=== PATIENT | female | born 1960 | race Caucasian/White ===

== ENCOUNTER 2021-08-17 09:48 | Inpatient (IN) | payer OTHER ==
[2021-08-17 14:15] LABS: Anisocytosis Slight; Basophils % (A) 0 %; Eosinophils # (A) 0.2 k/uL (0-0.7); Eosinophils % (A) 1 %; HCT 27.2 % (34.0-46.0); HGB 7.9 gm/dL (11.4-16.0); Hypochromasia Marked; Lymphocytes % (A) 12 %; MCH 21.1 pg (25.0-35.0); MCHC 28.9 g/dL (31.0-37.0); MCV 72.9 fL (80.0-100.0); Microcytosis Moderate; Monocytes # (A) 0.7 k/uL (0-1.0); Monocytes % (A) 4 %; Neutrophils # (A) 14.2 k/uL (1.3-7.7); Neutrophils % (A) 82 %; Platelet Count 756 k/uL (150-450); Poikilocytosis Moderate; RBC 3.74 m/uL (3.80-5.40); WBC 17.3 k/uL (3.8-10.6)
[2021-08-17 14:28] LABS: ALT 26 U/L (4-34); AST 28 U/L (14-36); African American GFR (CKD) >90 (>60 ml/min/1.73 sqM); Albumin 2.7 g/dL (3.5-5.0); Albumin/Globulin Ratio 0.9; Alkaline Phosphatase 361 U/L (38-126); Anion Gap 9 mmol/L; Blood Urea Nitrogen 7 mg/dL (7-17); Calcium 8.6 mg/dL (8.4-10.2); Carbon Dioxide 22 mmol/L (22-30); Chloride 103 mmol/L (98-107); Globulin 3.1 g/dL; Glucose 137 mg/dL (74-99); Non-African American GFR(CKD) >90 (>60 ml/min/1.73 sqM); Potassium 3.6 mmol/L (3.5-5.1); Sodium 134 mmol/L (137-145); Total Bilirubin 0.2 mg/dL (0.2-1.3); Total Protein 5.8 g/dL (6.3-8.2)
--- NOTE | 2021-08-17 18:30 | P.HPIM ---
History of Present Illness H&P Date: 08/17/21 The patient is a 62-year-old female with no known PMH, who doesn't follow with a PCP who had presented to [facility] on 08/15 with complaints of lethargy and weakness. The patient had reported that she had gone to bed as per usual on 08/14 and when her tried to wake her up to have her use the restroom, she was unable to get out of bed she felt really fatigued. The patient had undergone an extensive evaluation at [facility] with UA consistent with UTI, leukocytosis with WC count 19.9, hemoglobin 7.9 (no baseline available for comparison), MCV 67, troponin I 0.05, and sodium 128. CT head and CT angiogram of head and neck both unremarkable with chest x-ray also showing no acute process. EKG had revealed sinus tachycardia at [address]/T-wave changes noted as reviewed by me. The patient was admitted for presumed pyelonephritis and started on IV ceftriaxone and IV fluids. The following morning, the patient's hemoglobin dropped to 6.6 and WC count increased to 1.9. The patient was transfused 1 unit of PRBCs and sent to [facility] for further evaluation. At time of interview, the patient reported feeling that her since her admission at [facility]. She reports ongoing lethargic but denied any additional complaints. She denied fever, chills, abdominal pain, or flank pain. Also denied nausea, vomiting, abdominal pain, diarrhea. CBC this morning revealed leukocytosis of 17.3, and hemoglobin 7.9. Review of systems: Pertinent positives and negatives as discussed in HPI, a complete review of systems was performed and all other systems are negative. Physical examination: General: non toxic, no distress, appears at stated age, normal weight Derm: no unusual rashes/lesions no unusual ecchymoses, warm, dry Head: atraumatic, normocephalic, symmetric Eyes: EOMI, no lid lag, anicteric sclera, pupils equal round reactive to light ENT: Nose and ears atraumatic, no thrush, no pharyngeal erythema Neck: No thyromegaly, no cervical lymphadenopathy, trachea midline, supple Mouth: no lip lesion, mucus membranes moist Cardiovascular: S1S2 reg, no murmur, positive posterior tibial pulse bilateral, no edema, capillary refill less than 2 seconds Lungs: CTA bilateral, no rhonchi, no rales , no accessory muscle use Abdominal: soft, nontender to palpation, no guarding, no appreciable organomegaly, normal bowel sounds Ext: no gross muscle atrophy, muscle strength 4 out of 5 in all 4 extremities grossly, no contractures, Neuro: CN II-XI grossly intact, light touch intact all 4 extremities, finger to nose within normal limits, Psych: Alert, oriented, appropriate affect Assessment/plan Sepsis secondary to UTI -Continue ceftriaxone -Follow up with [facility] for results of urine culture -Leukocytosis improving at this time -Obtain PT consult Microcytic anemia -Obtain anemia workup -Repeat fecal occult blood testing DVT prophylaxis -IPCDs The patient is admitted with an anticipated greater than 2 midnight stay for evaluation of UTI CODE STATUS: Full Code Discussed with: Patient Anticipated discharge date: 1-[address]: Home Past Medical History Past Medical History: Musculoskeletal Disorder Additional Past Medical History / Comment(s): kidney infection History of Any Multi-Drug Resistant Organisms: None Reported Past Surgical History: Orthopedic Surgery Additional Past Surgical History / Comment(s): allison wrist surgery 2009 Past Anesthesia/Blood Transfusion Reactions: No Reported Reaction Smoking Status: Former smoker - Past Family History Father Family Medical History: Cancer Mother Family Medical History: Vascular Disorder Medications and Allergies Home Medications Medication Instructions Recorded Confirmed Type Cholecalciferol [Vitamin D3 (25 25 mcg PO DAILY 08/17/21 08/17/21 History Mcg = 1000 Iu)] Multivitamins, Thera [Multivitamin 1 tab PO DAILY 08/17/21 08/17/21 History (formulary)] Allergies Allergy/AdvReac Type Severity Reaction Status Date / Time No Known Allergies Allergy Unverified 08/17/21 12:47 Physical Exam Vitals: Vital Signs Temp Pulse Pulse Resp BP BP Pulse Ox 08/17/21 12:42 98.1 F 86 16 165/86 98 08/17/21 12:06 97.9 F 87 17 174/84 97 Intake and Output 08/17/21 08/17/21 08/17/21 06:59 14:59 22:59 Other: Weight 78.7 kg Results CBC & Chem 7: 08/17/21 14:05 08/17/21 14:05 Labs: Abnormal Lab Results - Last 24 Hours (Table) 10/30/21 10/30/21 Range/Units 14:05 14:05 WBC 17.3 H (3.8-10.6) k/uL RBC 3.74 L (3.80-5.40) m/uL Hgb 7.9 L (11.4-16.0) gm/dL Hct 27.2 L (34.0-46.0) % MCV 72.9 L (80.0-100.0) fL MCH 21.1 L (25.0-35.0) pg MCHC 28.9 L (31.0-37.0) g/dL RDW 19.0 H (11.5-15.5) % Plt Count 756 H (150-450) k/uL Neutrophils # 14.2 H (1.3-7.7) k/uL Sodium 134 L (137-145) mmol/L Glucose 137 H (74-99) mg/dL Alkaline Phosphatase 361 H (38-126) U/L Total Protein 5.8 L (6.3-8.2) g/dL Albumin 2.7 L (3.5-5.0) g/dL
[2021-08-17] MEDS ORDERED: NALOXONE 0.4 MG/ML 1 ML VIAL IV PRN (21:22)
[2021-08-18] MEDS: SODIUM CHLORIDE 0.9% 1,000 ML IV SCH ×2 (03:09→09:56)
[2021-08-18 06:22] LABS: Anisocytosis Slight; HCT 27.3 % (34.0-46.0); HGB 8.1 gm/dL (11.4-16.0); Hypochromasia Marked; MCH 21.3 pg (25.0-35.0); MCHC 29.5 g/dL (31.0-37.0); MCV 72.3 fL (80.0-100.0); Mean Platelet Volume 6.7; Microcytosis Marked; Platelet Count 807 k/uL (150-450); Poikilocytosis Moderate; RBC 3.78 m/uL (3.80-5.40); RDW 19.3 % (11.5-15.5); WBC 17.4 k/uL (3.8-10.6)
[2021-08-18 09:58] LABS: % Iron Saturation 5.6 (12.00-45.00); African American GFR (CKD) 120.4 (60.0-200.0); Anion Gap 11.9 mmol/L (4.00-12.00); BUN/Creat Ratio 11.12 Ratio (12.00-20.00); Blood Urea Nitrogen 5.5 mg/dL (9.0-27.0); Calcium 8.6 mg/dL (8.7-10.3); Carbon Dioxide 23.2 mmol/L (21.6-31.8); Ferritin 83.3 ng/mL (10.0-291.0); Magnesium 2.1 mg/dL (1.5-2.4); Non-African American GFR(CKD) 103.9 (60.0-200.0)
--- NOTE | 2021-08-18 13:03 | P.PN ---
Subjective Patient is doing fairly well today. No acute events overnight. She denies any abdominal pain. Objective - Vital Signs Vital signs: Vital Signs Temp 98.1 F 08/18/21 09:00 Pulse 70 08/18/21 09:00 Resp 18 08/18/21 09:00 BP 154/69 08/18/21 09:00 Pulse Ox 92 L 08/18/21 04:23 Intake & Output 08/17/21 08/18/21 08/18/21 18:59 06:59 18:59 Intake Total 120 900 Output Total 200 Balance 120 700 Weight 78.7 kg Intake: Intake, IV Titration 900 Amount Sodium Chloride 0.9% 1, 900 000 ml @ 75 mls/hr IV . [id number] [facility] Rx#:[id number] Oral 120 Output: Urine 200 Other: Voiding Method Toilet Toilet Toilet # Voids 2 4 - Exam General: The patient is awake and alert, in no distress Eye: there is normal conjunctiva bilaterally. Neck: The neck is supple, there is no JVD. Cardiovascular: Normal S1-S2, no S3-S4, no murmurs. Respiratory: Lungs clear to auscultation bilaterally Gastrointestinal: Abdomen is soft, nontender Musculoskeletal: There is no pedal edema. Neurological:. Speech is normal. Skin: Skin is warm and dry - Labs CBC & Chem 7: 08/18/21 05:40 08/18/21 05:40 Labs: Abnormal Lab Results - Last 24 Hours (Table) 08/17/21 08/17/21 08/18/21 Range/Units 14:05 14:05 05:40 WBC 17.3 H 17.4 H (3.8-10.6) k/uL RBC 3.74 L 3.78 L (3.80-5.40) m/uL Hgb 7.9 L 8.1 L (11.4-16.0) gm/dL Hct 27.2 L 27.3 L (34.0-46.0) % MCV 72.9 L 72.3 L (80.0-100.0) fL MCH 21.1 L 21.3 L (25.0-35.0) pg MCHC 28.9 L 29.5 L (31.0-37.0) g/dL RDW 19.0 H 19.3 H (11.5-15.5) % Plt Count 756 H 807 H (150-450) k/uL Neutrophils # 14.2 H (1.3-7.7) k/uL Sodium 134 L (137-145) mmol/L BUN (9.0-27.0) mg/dL Creatinine (0.6-1.5) mg/dL BUN/Creatinine Ratio (12.00-20.00) Ratio Glucose 137 H (74-99) mg/dL Calcium (8.7-10.3) mg/dL Iron (50-170) ug/dL TIBC (228-460) ug/dL % Saturation (12.00-45.00) Transferrin (204.0-354.0) mg/dL Alkaline Phosphatase 361 H (38-126) U/L Total Protein 5.8 L (6.3-8.2) g/dL Albumin 2.7 L (3.5-5.0) g/dL 08/18/21 Range/Units 05:40 WBC (3.8-10.6) k/uL RBC (3.80-5.40) m/uL Hgb (11.4-16.0) gm/dL Hct (34.0-46.0) % MCV (80.0-100.0) fL MCH (25.0-35.0) pg MCHC (31.0-37.0) g/dL RDW (11.5-15.5) % Plt Count (150-450) k/uL Neutrophils # (1.3-7.7) k/uL Sodium (137-145) mmol/L BUN 5.5 L (9.0-27.0) mg/dL Creatinine 0.5 L (0.6-1.5) mg/dL BUN/Creatinine Ratio 11.12 L (12.00-20.00) Ratio Glucose (74-99) mg/dL Calcium 8.6 L (8.7-10.3) mg/dL Iron 10 L (50-170) ug/dL TIBC 182 L (228-460) ug/dL % Saturation 5.60 L (12.00-45.00) Transferrin 130.0 L (204.0-354.0) mg/dL Alkaline Phosphatase (38-126) U/L Total Protein (6.3-8.2) g/dL Albumin (3.5-5.0) g/dL Assessment and Plan Assessment: The patient is a 62-year-old female with no known PMH, who doesn't follow with a PCP who had presented to [facility] on 08/15 with complaints of lethargy and weakness. The patient had undergone an extensive evaluation at [facility] with UA consistent with UTI, leukocytosis with WC count 19.9, hemoglobin 7.9 (no baseline available for comparison), MCV 67, troponin I 0.05, and sodium 128. CT head and CT angiogram of head and neck both unremarkable with chest x-ray also showing no acute process. EKG had revealed sinus tachycardia at [address]/T-wave changes noted as reviewed by me. The patient was admitted for presumed pyelonephritis and started on IV ceftriaxone and IV fluids. The following morning, the patient's hemoglobin dropped to 6.6 and WC count increased to 1.9. The patient was transfused 1 unit of PRBCs and sent to [facility] for further evaluation. Assessment/plan Sepsis secondary to UTI -Continue ceftriaxone -Follow up with [place] for results of urine culture -Leukocytosis improving at this time -Obtain PT consult Iron deficiency anemia requiring blood transfusion with suspected GI bleed -I would start the patient on iron supplement -Consult GI for possible upper and lower endoscopy DVT prophylaxis -IPCDs CODE STATUS: Full Code Discussed with: Patient Anticipated discharge date: Pending clinical course Anticipated discharge place: Home
[2021-08-18] MEDS: PANTOPRAZOLE 40 MG/10 ML VIAL IVP SCH (13:49)
[2021-08-18] MEDS: FERROUS SULFATE 325 MG TAB PO SCH (13:50)
[2021-08-19 06:29] LABS: Anisocytosis Slight; Basophils # (A) 0.1 k/uL (0-0.2); Basophils % (A) 0 %; Eosinophils # (A) 0.2 k/uL (0-0.7); Eosinophils % (A) 1 %; HCT 27.7 % (34.0-46.0); HGB 7.6 gm/dL (11.4-16.0); Hypochromasia Marked; Lymphocytes # (A) 2.3 k/uL (1.0-4.8); Lymphocytes % (A) 14 %; MCH 20.1 pg (25.0-35.0); MCHC 27.6 g/dL (31.0-37.0); Mean Platelet Volume 6.9; Microcytosis Moderate; Monocytes # (A) 0.8 k/uL (0-1.0); Monocytes % (A) 5 %; Neutrophils # (A) 13.5 k/uL (1.3-7.7); Neutrophils % (A) 79 %; Platelet Count 760 k/uL (150-450); Poikilocytosis Slight; RBC 3.79 m/uL (3.80-5.40); RDW 19.7 % (11.5-15.5)
[2021-08-19] MEDS: PANTOPRAZOLE 40 MG/10 ML VIAL IVP SCH (08:17)
[2021-08-19] MEDS: FERROUS SULFATE 325 MG TAB PO SCH ×3 (08:17→17:20)
--- NOTE | 2021-08-19 13:52 | P.PN ---
Subjective Patient is doing well today. No acute events overnight. Objective - Vital Signs Vital signs: Vital Signs Temp 97.4 F L 08/19/21 13:00 Pulse 94 08/19/21 13:00 Resp 17 08/19/21 13:00 BP 146/88 08/19/21 13:00 Pulse Ox 95 08/19/21 13:00 Intake & Output 08/18/21 08/19/21 08/19/21 18:59 06:59 18:59 Intake Total 240 100 Balance 240 100 Intake: Oral 240 100 Other: Voiding Method Toilet Toilet # Voids 3 4 # Bowel Movements 1 - Exam General: The patient is awake and alert, in no distress Eye: there is normal conjunctiva bilaterally. Neck: The neck is supple, there is no JVD. Cardiovascular: Normal S1-S2, no S3-S4, no murmurs. Respiratory: Lungs clear to auscultation bilaterally Gastrointestinal: Abdomen is soft, nontender Musculoskeletal: There is no pedal edema. Neurological:. Speech is normal. Skin: Skin is warm and dry - Labs CBC & Chem 7: 08/19/21 05:56 08/18/21 05:40 Labs: Abnormal Lab Results - Last 24 Hours (Table) 08/19/21 Range/Units 05:56 WBC 17.0 H (3.8-10.6) k/uL RBC 3.79 L (3.80-5.40) m/uL Hgb 7.6 L (11.4-16.0) gm/dL Hct 27.7 L (34.0-46.0) % MCV 73.0 L (80.0-100.0) fL MCH 20.1 L (25.0-35.0) pg MCHC 27.6 L (31.0-37.0) g/dL RDW 19.7 H (11.5-15.5) % Plt Count 760 H (150-450) k/uL Neutrophils # 13.5 H (1.3-7.7) k/uL Assessment and Plan Assessment: The patient is a 62-year-old female with no known PMH, who doesn't follow with a PCP who had presented to [facility] on 08/15 with complaints of lethargy and weakness. The patient had undergone an extensive evaluation at [facility] with UA consistent with UTI, leukocytosis with WC count 19.9, hemoglobin 7.9 (no baseline available for comparison), MCV 67, troponin I 0.05, and sodium 128. CT head and CT angiogram of head and neck both unremarkable with chest x-ray also showing no acute process. EKG had revealed sinus tachycardia at [address]/T-wave changes noted as reviewed by me. The patient was admitted for presumed pyelonephritis and started on IV ceftriaxone and IV fluids. The following morning, the patient's hemoglobin dropped to 6.6 and WC count increased to 1.9. The patient was transfused 1 unit of PRBCs and sent to [facility] for further evaluation. Assessment/plan Sepsis secondary to UTI -Continue ceftriaxone -Follow up with [facility] for results of urine culture -Leukocytosis improving at this time -Obtain PT consult Iron deficiency anemia requiring blood transfusion with suspected GI bleed -I started the patient on iron supplement -Seen and evaluated by GI, plan for endoscopy tomorrow DVT prophylaxis -IPCDs CODE STATUS: Full Code Discussed with: Patient Anticipated discharge date: Pending clinical course Anticipated discharge place: Home
--- NOTE | 2021-08-19 14:30 | P.CONS ---
History of Present Illness - Reason for Consult Consult date: 08/19/21 anemia Requesting physician: Guzman Lieberman - Chief Complaint Weakness, fatigue - History of Present Illness This a 61-year-old female who presented to [facility] with complaints of fatigue and weakness for which she states over the last 1 month or so. Apparently the patient's tried waking her up to assist her to the bathroom and she was really fatigued. She was noted to have a hemoglobin of 6.6 at [facility] and was given 1 unit of PRBC transfusion. Patient labs consistent with a microcytic anemia. Iron studies consistent with iron deficie ncy anemia. Patient denies any signs or symptoms of GI bleed. She denies any black stool or maroon stool or blood in her stool. She states she has no previous history of anemia or blood transfusion. She denies any previous EGD or colonoscopy. She denies any anticoagulation, however states she has been taking Motrin regularly 4-6 tablets a day for foot pain. No previous history of peptic ulcer disease or gastroesophageal reflux disease. Today's labs WBC 17.0 hemoglobin 7.6 hematocrit 27 platelet count 760,000. She's been afebrile. Denies any abdominal pain, nausea, or vomiting. Review of Systems REVIEW OF SYSTEMS: CARDIOPULMONARY: No chest pain or shortness of breath. Gastrointestinal: No abdominal pain. No nausea or vomiting. No hematemesis, coffee-ground emesis. No rectal bleeding, or melena. GENITOURINARY: No dysuria or hematuria. MUSCULOSKELETAL: Reports normal range of motion., Joint pain. SKIN: No rashes. No jaundice. ENDOCRINE: No chills, fevers. No excessive weight gain or loss. No polydipsia or polyuria. PSYCHIATRIC: Unremarkable. NEUROLOGY: No change in mental status. Denies dizziness, headache. ENT: Vision unremarkable. CONSTITUTIONAL: No recent weight loss. No fever, chills, night sweats. Complaints of fatigue, weakness. Past Medical History Past Medical History: Musculoskeletal Disorder Additional Past Medical History / Comment(s): kidney infection History of Any Multi-Drug Resistant Organisms: None Reported Past Surgical History: Orthopedic Surgery Additional Past Surgical History / Comment(s): allison wrist surgery 2009 Past Anesthesia/Blood Transfusion Reactions: No Reported Reaction Smoking Status: Former smoker - Past Family History Father Family Medical History: Cancer Mother Family Medical History: Vascular Disorder Medications and Allergies Home Medications Medication Instructions Recorded Confirmed Type Cholecalciferol [Vitamin D3 (25 25 mcg PO DAILY 08/17/21 08/17/21 History Mcg = 1000 Iu)] Multivitamins, Thera [Multivitamin 1 tab PO DAILY 08/17/21 08/17/21 History (formulary)] Allergies Allergy/AdvReac Type Severity Reaction Status Date / Time No Known Allergies Allergy Unverified 08/17/21 12:47 Physical Exam Vitals: Vital Signs Temp Pulse Resp BP Pulse Ox 08/19/21 05:00 98 F 82 20 167/79 95 08/18/21 19:30 98.9 F 104 H 20 167/88 93 L 08/18/21 19:26 18 08/18/21 16:39 95 08/18/21 13:00 98.1 F 81 18 167/81 95 Intake and Output 08/18/21 08/19/21 08/19/21 22:59 06:59 14:59 Intake Total 240 100 Balance 240 100 Intake: Oral 240 100 Other: Voiding Method Toilet # Voids 3 4 # Bowel Movements 1 General appearance: The patient is alert, oriented, appears in no acute distress. HET: Head is normocephalic and atraumatic. Conjunctiva pink. Sclera anicteric. Neck: Supple without lymphadenopathy. Trachea midline. Heart: S1 S2. Regular rate and rhythm. Lungs: Clear to auscultation. Abdomen: Soft, mild epigastric tenderness, nondistended with bowel sounds. No guarding or rigidity. Skin: No rashes. No jaundice. Extremities: Normal skin color and turgor. No pedal edema. Neurological: No focal deficits. Alert and oriented x3. Results CBC & Chem 7: 08/19/21 05:56 08/18/21 05:40 Labs: Abnormal Lab Results - Last 24 Hours (Table) 08/19/21 Range/Units 05:56 WBC 17.0 H (3.8-10.6) k/uL RBC 3.79 L (3.80-5.40) m/uL Hgb 7.6 L (11.4-16.0) gm/dL Hct 27.7 L (34.0-46.0) % MCV 73.0 L (80.0-100.0) fL MCH 20.1 L (25.0-35.0) pg MCHC 27.6 L (31.0-37.0) g/dL RDW 19.7 H (11.5-15.5) % Plt Count 760 H (150-450) k/uL Neutrophils # 13.5 H (1.3-7.7) k/uL Assessment and Plan (1) Iron deficiency anemia Narrative/Plan: 61-year-old female who had presented to [facility] with complaints of weakness and fatigue. She is found to have a hemoglobin of 6.6 and was given 1 unit of PRBC transfusion and transferred to this hospital for further workup. The patient denies any previous history of GI bleed. She denies any history of peptic ulcer disease or gastric reflux disease. She's had no previous EGD or colonoscopy. Denies any signs or symptoms of GI bleed such as melena, hematochezia, or hematemesis. Admitting labs are consistent with a microcytic anemia, iron studies are consistent with iron deficiency anemia. Patient was started on oral iron. Hemoglobin is stable at 7.6. Possible etiologies include peptic ulcer disease, gastritis, esophagitis, AVM or other possible etiologies. We'll plan to proceed with EGD and colonoscopy tomorrow. Current Visit: Yes Status: Acute Code(s): D50.9 - IRON DEFICIENCY ANEMIA, UNSPECIFIED SNOMED Code(s): 43783391 (2) Microcytic anemia Current Visit: Yes Status: Acute Code(s): D50.9 - IRON DEFICIENCY ANEMIA, UNSPECIFIED SNOMED Code(s): 283157096 Plan: 1. Continue symptomatic and supportive care 2. Protonix 40 mg daily 3. Clear liquid diet, nothing by mouth after midnight 4. Bowel prep this afternoon 5. Daily CBC, transfuse for hemoglobin less than 7 6. Agree with iron replacement Thank you for this consultation, we will continue to follow. Dr. Jonny Cuenca I agree with the dictator's note, documented as a scribe by Tamie Bui.
[2021-08-19] MEDS ORDERED: PEG 3350-NA SULF,BICARB,CL/KCL 4,000 ML BOTTLE PO ONE (16:00)
[2021-08-19] MEDS: LACTATED RINGERS 1,000 ML IV SCH (17:21)
[2021-08-20] MEDS ORDERED: MAGNESIUM CITRATE 296 ML BOTTLE PO ONE (06:45)
[2021-08-20] MEDS: FERROUS SULFATE 325 MG TAB PO SCH ×3 (07:14→16:58)
[2021-08-20] MEDS: PANTOPRAZOLE 40 MG/10 ML VIAL IVP SCH (08:22)
[2021-08-20 10:02] LABS: Anisocytosis Slight; HCT 29.4 % (34.0-46.0); HGB 8.6 gm/dL (11.4-16.0); Hypochromasia Marked; MCH 21.5 pg (25.0-35.0); MCHC 29.1 g/dL (31.0-37.0); MCV 73.7 fL (80.0-100.0); Mean Platelet Volume 6.9; Microcytosis Moderate; Platelet Count 886 k/uL (150-450); Poikilocytosis Slight; RBC 3.99 m/uL (3.80-5.40); RDW 19.8 % (11.5-15.5)
[2021-08-20 11:03] LABS: African American GFR (CKD) >90 (>60 ml/min/1.73 sqM); Anion Gap 11 mmol/L; Blood Urea Nitrogen 10 mg/dL (7-17); Calcium 9.1 mg/dL (8.4-10.2); Carbon Dioxide 25 mmol/L (22-30); Chloride 99 mmol/L (98-107); Glucose 111 mg/dL (74-99); Non-African American GFR(CKD) >90 (>60 ml/min/1.73 sqM); Potassium 4.1 mmol/L (3.5-5.1); Sodium 135 mmol/L (137-145)
[2021-08-20] MEDS ORDERED: PROPOFOL 10 MG/ML 20 ML VIAL IV ONE (12:21)
[2021-08-20] MEDS ORDERED: IV FLUID CONTINUATION 1,000 ML IV ONE (12:34)
--- NOTE | 2021-08-20 13:01 | P.PCN ---
Date of Procedure: 08/20/21 Procedure(s) Performed: Brief history: Patient is a pleasant 61-year-old white female admitted hospital with severe symptomatic iron deficiency anemia and hemoglobin of 6.4 g/dL requiring 1 unit of blood transfusion. She denies any GI symptoms. She is scheduled for an upper endoscopy as well as colonoscopy as a part of evaluation of iron deficiency anemia. Procedure performed: Esophagogastroduodenoscopy biopsy Colonoscopy with biopsy/snare polypectomy and tattooing with Lupe ink Preoperative diagnosis: Iron deficiency anemia Anesthesia: MAC Procedure: After informed consent was obtained from the patient was brought into the endoscopy unit and IV sedation was administered by anesthesia under continuous monitoring. Initially upper endoscopy was done. The Olympus GF 160 video endoscope was inserted inserted into the mouth and esophagus intubated without any difficulty and was gradually advanced into the stomach and duodenum and carefully examined. The bulb and second part of the duodenum appeared normal. Abscesses were done from the duodenum to rule out celiac disease. The scope was then withdrawn into the stomach adequately insufflated with air and upon careful examination the antrum and body, cardia and fundus appeared normal. The scope was then withdrawn into the esophagus. The GE junction was located at 37 cm to the incisors. Small to moderate size hiatal hernia noted. It appeared regular with no erythema erosions or ulcerations. Rest of the esophagus appeared normal. Patient tolerated the procedure well. At this time the patient continued to remain sedation. Initial digital rectal examination was normal. Olympus CF 160 video colonoscope was then inserted into the rectum and gradually advanced to the cecum without any difficulty. Careful examination was performed as the scope was gradually being withdrawn. The prep was fair.. In the base of the cecum there was a 1 cm polyp that was removed by snare polypectomy. The cecum, ascending colon, transverse colon, appeared normal. In the descending colon there were 2 polyps measuring 1 cm in size both of which were removed by snare polypectomy. In the mid; there was a potential ulcerated mass extending from 30-40 cm from the anal verge and multiple biopsies were done from the mass. Tattooing was performed with Lupe ink at the distal margin of the ulcerated mass. The rectum appeared normal. Retroflexion was performed in the rectum and no lesions were noted. Patient tolerated the procedure well. Impression: 1. Upper endoscopy revealed small to moderate size hiatal hernia but once of esophagitis or peptic ulcer disease 2. Colonoscopy revealed circumferential ulcerated sigmoid colon mass extending from 30-40 cm from the anal verge status post biopsy followed by tattooing with Lupe ink. There was a 1 cm cecal polyp and 1 cm transverse descending colon polyp status post polypectomy Recommendations: Findings of this examination were discussed with the patient . At this time will await biopsy results. Obtain CT of abdomen and pelvis and surgical consultation.
[2021-08-20] MEDS: IOPAMIDOL CONTRAST (ORAL USE) VIAL PO PRN ×2 (14:46→15:44)
--- NOTE | 2021-08-20 17:50 | CT ---
EXAMINATION TYPE: CT abdomen pelvis w con DATE OF EXAM: 08/20/2021 COMPARISON: None INDICATION: Sigmoid colon mass on colonoscopy. Abdominal pain. DLP: 1140.9 mGycm, Automated exposure control for dose reduction was used. CONTRAST: 100 mL of Isovue M300. Study performed with Oral Contrast TECHNIQUE: Axial images were obtained from above the diaphragm to the pubic rami in the axial plane a t 5 mm thick sections. Reconstructed images are reviewed on the computer in the coronal plane. FINDINGS: Limited CT sections are obtained the lung bases. The lung bases are clear. CT ABDOMEN: Liver: Normal Spleen: Normal Pancreas: Normal Adrenal glands: The adrenal glands are normal. Gallbladder: Normal Kidneys: No masses are evident. No hydronephrosis is present. There is a cyst on the anterior upper pole right kidney. Aorta: Vascular calcification is within the aorta. Inferior vena cava: Normal. CT PELVIS: Small bowel loops within the upper abdomen are prominent. Within the left hemipelvis is a large section what appears to be the sigmoid colon. This has thickene d wall. This area measures approximately 13.5 x 4.9 cm and is suspicious for a large neoplasm. Just a nterior to this structure is a hypodense lesion suspicious for abscess formation. The internal cavity measures 4.6 x 5.4 cm. This abuts the anterior pelvic wall. There is an adjacent loop of small bowel which has diffusely thickened wall best visualized in the co aidee plane. Series 8 image 42. There may be some narrowing through the small bowel at this level. Co mplete Obstruction is not identified. Partial obstruction could be considered. Appendix: Not identified. No dilated tubular structure or inflammatory change is evident. Urinary bladder: Normal. Genitourinary structures: Uterus has a thickened endometrial canal measuring 3.4 cm. Osseous structures: No suspicious lytic or sclerotic lesions. IMPRESSIONS: 1. Large segment of thickened sigmoid colon this has a hypodense collection anterior likely related to abscess formation abutting the intraperitoneal wall. 2. Thickening of the adjacent small bowel wall. 3. Thickening of the uterine endometrial canal
[2021-08-20] MEDS: LACTATED RINGERS 1,000 ML IV SCH (18:15)
--- NOTE | 2021-08-20 18:20 | P.PN ---
Subjective Patient was seen and evaluated. Was scheduled for colonoscopy later today Objective - Vital Signs Vital signs: Vital Signs Temp 97.1 F L 08/20/21 15:08 Pulse 87 08/20/21 15:08 Resp 18 08/20/21 15:08 BP 166/94 08/20/21 15:08 Pulse Ox 97 08/20/21 13:56 Intake & Output 08/19/21 08/20/21 08/20/21 18:59 06:59 18:59 Intake Total 1040 240 200 Balance 1040 240 200 Intake: IV 200 Intake, IV Titration 240 Amount Lactated Ringers 1,000 ml 240 @ 20 mls/hr IV .Q24H LAZ Rx#:[id number] Oral 1040 Other: Voiding Method Toilet # Voids 6 # Bowel Movements 2 - Exam General: The patient is awake and alert, in no distress Eye: there is normal conjunctiva bilaterally. Neck: The neck is supple, there is no JVD. Cardiovascular: Normal S1-S2, no S3-S4, no murmurs. Respiratory: Lungs clear to auscultation bilaterally Gastrointestinal: Abdomen is soft, nontender Musculoskeletal: There is no pedal edema. Neurological:. Speech is normal. Skin: Skin is warm and dry - Labs CBC & Chem 7: 08/20/21 09:24 08/20/21 09:24 Labs: Abnormal Lab Results - Last 24 Hours (Table) 08/20/21 08/20/21 Range/Units 09:24 09:24 WBC 19.0 H (3.8-10.6) k/uL Hgb 8.6 L (11.4-16.0) gm/dL Hct 29.4 L (34.0-46.0) % MCV 73.7 L (80.0-100.0) fL MCH 21.5 L (25.0-35.0) pg MCHC 29.1 L (31.0-37.0) g/dL RDW 19.8 H (11.5-15.5) % Plt Count 886 H (150-450) k/uL Sodium 135 L (137-145) mmol/L Glucose 111 H (74-99) mg/dL Assessment and Plan Assessment: The patient is a 62-year-old female with no known PMH, who doesn't follow with a PCP who had presented to [facility] on 08/15 with complaints of lethargy and weakness. The patient had undergone an extensive evaluation at [facility] with UA consistent with UTI, leukocytosis with WC count 19.9, hemoglobin 7.9 (no baseline available for comparison), MCV 67, troponin I 0.05, and sodium 128. CT head and CT angiogram of head and neck both unremarkable with chest x-ray also showing no acute process. EKG had revealed sinus tachycardia at [address]/T-wave changes noted as reviewed by me. The patient was admitted for presumed pyelonephritis and started on IV ceftriaxone and IV fluids. The following morning, the patient's hemoglobin dropped to 6.6 and WC count increased to 1.9. The patient was transfused 1 unit of PRBCs and sent to [facility] for further evaluation. Assessment/plan Iron deficiency anemia requiring blood transfusion with suspected GI bleed Sigmoid colon mass -I started the patient on iron supplement -Status post EGD and colonoscopy today -EGD showed no acute findings, colonoscopy showed sigmoid colon mass -Computed tomography scan of the abdomen and pelvis and Gen. surgery for further evaluation Sepsis secondary to UTI -Continue ceftriaxone -Follow up with [facility] for results of urine culture DVT prophylaxis -IPCDs CODE STATUS: Full Code Discussed with: Patient Anticipated discharge date: Pending clinical course Anticipated discharge place: Home
[2021-08-21] MEDS: FERROUS SULFATE 325 MG TAB PO SCH (07:34)
[2021-08-21] MEDS: PANTOPRAZOLE 40 MG/10 ML VIAL IVP SCH (08:12)
[2021-08-21] MEDS: SODIUM FERRIC GLUCONAT-SUCROSE 125 MG in SODIUM CHLORIDE 0.9% 100 ML IVPB SCH (09:45)
--- NOTE | 2021-08-21 11:12 | P.PN ---
Subjective Progress Note Date: 08/21/21 Principal diagnosis: Anemia 61-year-old female who presented to [facility] with complaints of fatigue and weakness for which she states was occurring over the last 1 month or so. Patient was noted to have a hemoglobin of 6.6 at [place] was given 1 unit of PRBC transfusion and transferred here for further gastroenterology management. She had iron studies consistent with iron deficiency anemia. Yesterday she underwent an EGD and colonoscopy. The upper endoscopy revealed a small to moderate size hiatal hernia but no evidence of esophagitis or peptic ulcer disease. Colonoscopy revealed a circumferential ulcerated sigmoid colon mass extending from 30-40 cm from the anal verge status post biopsy and tattooing. There was also cecal polyp in transverse descending colon polyp status post polypectomy. Gen. surgery was consulted. Patient continues to deny any abdominal pain, blood in her stool, nausea, or vomiting. She is tolerating a clear liquid diet.CT of the abdomen and pelvis reviewed showing large segment of thickened sigmoid colon with a hypodense collection anterior likely related to abscess formation abutting the intraperitoneal wall. Thickening of the adjacent small bowel wall. Thickening of the uterine endometrial canal. The liver is normal. Objective - Vital Signs Vital signs: Vital Signs Temp 98.2 F 08/20/21 20:16 Pulse 83 08/21/21 07:03 Resp 16 08/21/21 04:46 BP 134/78 08/21/21 04:46 Pulse Ox 95 08/21/21 04:46 Intake & Output 08/20/21 08/21/21 08/21/21 18:59 06:59 18:59 Intake Total 490 290 Balance 490 290 Intake: IV 200 Intake, IV Titration 290 290 Amount Lactated Ringers 1,000 ml 240 240 @ 20 mls/hr IV .Q24H LAZ Rx#:[id number] cefTRIAXone 1 gm In 50 50 Sodium Chloride 0.9% 50 ml @ 100 mls/hr IVPB Q24HR LAZ Rx#:[id number] Other: Voiding Method Toilet # Voids 3 2 # Bowel Movements 2 - Exam General appearance: The patient is alert, oriented, appears in no acute distress. HET: Head is normocephalic and atraumatic. Conjunctiva pink. Sclera anicteric. Neck: Supple without lymphadenopathy. Abdomen: Soft, nontender, nondistended with bowel sounds. No guarding or rigidity. Extremities: Normal skin color and turgor. No pedal edema Skin: No rashes, no jaundice Neurological: No focal deficits. Alert and oriented -3. - Labs CBC & Chem 7: 08/20/21 09:24 08/20/21 09:24 Labs: Abnormal Lab Results - Last 24 Hours (Table) 08/20/21 Range/Units 09:24 Sodium 135 L (137-145) mmol/L Glucose 111 H (74-99) mg/dL Assessment and Plan (1) Iron deficiency anemia Narrative/Plan: 61-year-old female who had presented to [facility] with complaints of weakness and fatigue. She is found to have a hemoglobin of 6.6 and was given 1 unit of PRBC transfusion and transferred to this hospital for further workup. The patient denies any previous history of GI bleed. She denies any history of peptic ulcer disease or gastric reflux disease. She's had no previous EGD or colonoscopy. Denies any signs or symptoms of GI bleed such as melena, hematochezia, or hematemesis. Admitting labs are consistent with a microcytic anemia, iron studies are consistent with iron deficiency anemia. Patient was started on oral iron. Hemoglobin is stable at 7.6. Possible etiologies include peptic ulcer disease, gastritis, esophagitis, AVM or other possible etiologies. We'll plan to proceed with EGD and colonoscopy tomorrow. EGD and colonoscopy performed. EGD with small to moderate hiatal hernia with no evidence of peptic ulcer disease or esophagitis. Colonoscopy significant for a sigmoid colon mass. Gen. surgery has been consulted. Agree with IV iron replacement Current Visit: Yes Status: Acute Code(s): D50.9 - IRON DEFICIENCY ANEMIA, UNSPECIFIED SNOMED Code(s): 99251920 (2) Microcytic anemia Current Visit: Yes Status: Acute Code(s): D50.9 - IRON DEFICIENCY ANEMIA, UNSPECIFIED SNOMED Code(s): 804978510 (3) Urinary tract infection Current Visit: Yes Status: Acute Code(s): N39.0 - URINARY TRACT INFECTION, SITE NOT SPECIFIED SNOMED Code(s): 71270241 (4) Mass of colon Current Visit: Yes Status: Acute Code(s): K63.89 - OTHER SPECIFIED DISEASES OF INTESTINE SNOMED Code(s): 303051261 Plan: 1. Continue symptomatic and supportive care 2. Gen. surgery consulted for a sigmoid colon mass 3. Continue clear liquid diet 4. CBC, BMP 5. Agree with IV iron infusions 6. CT of the abdomen and pelvis reviewed Thank you for this consultation, we will continue to follow Dr. Jonny Cuenca I agree with the dictator's note, documented as a scribe by Tamie Bui.
--- NOTE | 2021-08-21 12:24 | P.GSCN ---
<Donna Chaudhry - Last Filed: 08/21/21 12:26> History of Present Illness Consult date: 08/21/21 History of present illness: CHIEF COMPLAINT: Weakness Reason for consult: Sigmoid colon mass HISTORY OF PRESENT ILLNESS: This is a 61-year-old female who initially presented from [facility] with weakness and fatigue 1 month. She's been treated for UTI with sepsis. She was found to be anemic with a hemoglobin of 6.6 at [place]. She was given a unit of blood. Patient's hemoglobin on admission 7.9 and is now up to 8.6. Patient underwent colonoscopy with Dr. Cuenca which revealed circumferential ulcerated sigmoid colon mass extending from 30-40 cm from the anal verge. There was a 1 cm cecal polyp and 1 cm transverse descending colon polyp status post polypectomy. Her EGD had shown moderate size hiatal hernia. Patient had computed tomography scan of the abdomen and pelvis showing a large segment of thickened sigmoid colon that has a hypodense collection anterior likely related to abscess formation abutting the intraperitoneal wall. Thickening of the adjacent small bowel wall. And thickening of the uterine endometrial canal. Patient reports that she's never had a prior colonoscopy. She does admit to a 40 pound weight loss over the last 2 months. She denies any blood or black stools. Denies any nausea or vomiting. Denies any abdominal pain. She was a former smoker. Denies any family history of colon cancer. She has reported a change in her bowel habits she's usually more constipated and is noted that her stools have become looser. Surgical consult was placed due to sigmoid colon mass. Denies any cardiac history. PAST MEDICAL HISTORY: See list. PAST SURGICAL HISTORY: See list. MEDICATIONS: See list. ALLERGIES: See list. SOCIAL HISTORY: No illicit drug use. REVIEW OF SYSTEMS: CONSTITUTIONAL: Denies fever or chills. HEENT: Denies blurred vision, vision changes, or eye pain. Denies hemoptysis CARDIOVASCULAR: Denies chest pain or pressure. RESPIRATORY: No shortness of breath. GASTROINTESTINAL: See HPI for pertinent findings HEMATOLOGIC: Denies bleeding disorders. GENITOURINARY: Denies any blood in urine or increased urinary frequency. SKIN: Denies pruitis. Denies rash. PHYSICAL EXAM: VITAL SIGNS: Reviewed GENERAL: Well-developed in no acute distress. HEENT: No sclera icterus. Extraocular movements grossly intact. Moist buccal mucosa. Head is atraumatic, normocephalic. No nasal drainage. ABDOMEN: Soft. Nondistended. Nontender NEUROLOGIC: Alert and oriented. Cranial nerves II through XII grossly intact. LABORATORY DATA: WBC 19 hemoglobin 8.6 platelets 886 Sodium 135 potassium 4.1 BUN 10 creatinine 0.59 Total iron 10 IMAGING: CAT scan findings as stated above ASSESSMENT: 1. Sigmoid colon mass 2. Abscess formation anterior to the sigmoid colon abutting the intraperitoneal wall 3. Anemia 4. Leukocytosis 5. UTI PLAN: -Patient scheduled for sigmoid colectomy with possible colostomy tomorrow, 08/22/[address] Bosch -Patient can have clear liquids today -Nothing by mouth after midnight -Continue antibiotics Thank you for this consultation Physician Waitstaff note has been reviewed by physician. Signing provider agrees with the documented findings, assessment, and plan of care. Past Medical History Past Medical History: Musculoskeletal Disorder Additional Past Medical History / Comment(s): kidney infection History of Any Multi-Drug Resistant Organisms: None Reported Past Surgical History: Orthopedic Surgery Additional Past Surgical History / Comment(s): allison wrist surgery 2009 Past Anesthesia/Blood Transfusion Reactions: No Reported Reaction Smoking Status: Former smoker - Past Family History Father Family Medical History: Cancer Mother Family Medical History: Vascular Disorder Medications and Allergies Home Medications Medication Instructions Recorded Confirmed Type Cholecalciferol [Vitamin D3 (25 25 mcg PO DAILY 08/17/21 08/17/21 History Mcg = 1000 Iu)] Multivitamins, Thera [Multivitamin 1 tab PO DAILY 08/17/21 08/17/21 History (formulary)] Allergies Allergy/AdvReac Type Severity Reaction Status Date / Time No Known Allergies Allergy Unverified 08/17/21 12:47 Surgical - Exam Vital Signs Temp Pulse Resp BP Pulse Ox 97.9 F 87 17 174/84 97 08/17/21 12:06 08/17/21 12:06 08/17/21 12:06 08/17/21 12:06 08/17/21 12:06 Results - Labs 08/20/21 09:24 08/20/21 09:24 <Yahir Bosch - Last Filed: 08/21/21 13:07> History of Present Illness History of present illness: As above. Patient with large neoplastic-appearing mass arising from the mid sigmoid colon. There appears to be extension to and including the abdominal wall. There may be an adjacent small bowel loop that is involved as well. Endoscopic and CAT scan findings reviewed with patient and I also spoke with the patient's daughter by phone for quite some time. We will proceed with exploratory laparotomy, sigmoid colectomy, possible colostomy tomorrow. Risks of bleeding, infection, need for ostomy, bladder bowel and ureteral injury, recurrence, inability to completely resect the tumor, possible need for diverting ostomy, respiratory and cardiac complications, hernia reviewed. Patient and daughter understand and wish for us to proceed. Surgical - Exam Vital Signs Temp Pulse Resp BP Pulse Ox 97.9 F 87 17 174/84 97 08/17/21 12:06 08/17/21 12:06 08/17/21 12:06 08/17/21 12:06 08/17/21 12:06 Results - Labs 08/20/21 09:24 08/21/21 12:04 Abnormal Lab Results - Last 24 Hours (Table) 08/21/21 Range/Units 12:04 Sodium 134 L (137-145) mmol/L BUN 5 L (7-17) mg/dL Creatinine 0.51 L (0.52-1.04) mg/dL Glucose 123 H (74-99) mg/dL Diabetes panel 08/21/21 Range/Units 12:04 Sodium 134 L (137-145) mmol/L Potassium 3.8 (3.5-5.1) mmol/L Chloride 98 (98-107) mmol/L Carbon Dioxide 28 (22-30) mmol/L BUN 5 L (7-17) mg/dL Creatinine 0.51 L (0.52-1.04) mg/dL Glucose 123 H (74-99) mg/dL Calcium 8.5 (8.4-10.2) mg/dL Calcium panel 08/21/21 Range/Units 12:04 Calcium 8.5 (8.4-10.2) mg/dL Pituitary panel 08/21/21 Range/Units 12:04 Sodium 134 L (137-145) mmol/L Potassium 3.8 (3.5-5.1) mmol/L Chloride 98 (98-107) mmol/L Carbon Dioxide 28 (22-30) mmol/L BUN 5 L (7-17) mg/dL Creatinine 0.51 L (0.52-1.04) mg/dL Glucose 123 H (74-99) mg/dL Calcium 8.5 (8.4-10.2) mg/dL Adrenal panel 08/21/21 Range/Units 12:04 Sodium 134 L (137-145) mmol/L Potassium 3.8 (3.5-5.1) mmol/L Chloride 98 (98-107) mmol/L Carbon Dioxide 28 (22-30) mmol/L BUN 5 L (7-17) mg/dL Creatinine 0.51 L (0.52-1.04) mg/dL Glucose 123 H (74-99) mg/dL Calcium 8.5 (8.4-10.2) mg/dL
[2021-08-21 12:38] LABS: African American GFR (CKD) >90 (>60 ml/min/1.73 sqM); Anion Gap 8 mmol/L; Blood Urea Nitrogen 5 mg/dL (7-17); Calcium 8.5 mg/dL (8.4-10.2); Carbon Dioxide 28 mmol/L (22-30); Chloride 98 mmol/L (98-107); Glucose 123 mg/dL (74-99); Non-African American GFR(CKD) >90 (>60 ml/min/1.73 sqM); Potassium 3.8 mmol/L (3.5-5.1); Sodium 134 mmol/L (137-145)
[2021-08-21] MEDS ORDERED: MAGNESIUM CITRATE 296 ML BOTTLE PO ONE (13:15)
[2021-08-21 13:44] LABS: Anisocytosis Slight; HCT 28.2 % (34.0-46.0); HGB 8.2 gm/dL (11.4-16.0); Hypochromasia Marked; MCHC 28.9 g/dL (31.0-37.0); MCV 72.9 fL (80.0-100.0); Microcytosis Marked; Platelet Count 793 k/uL (150-450); Poikilocytosis Slight; RBC 3.88 m/uL (3.80-5.40); RDW 19.7 % (11.5-15.5); WBC 16.5 k/uL (3.8-10.6)
[2021-08-21] MEDS: LACTATED RINGERS 1,000 ML IV SCH (17:35)
--- NOTE | 2021-08-21 21:28 | P.PN ---
Subjective Progress Note Date: 08/21/21 (delayed charting seen at 1430) Principal diagnosis: fatigue Patient is a 62-year-old female with no known PMH, who doesn't follow with a PCP who had presented to [facility] on 08/15 with complaints of lethargy and weakness. The patient had underwent an extensive evaluation at [facility] with UA consistent with UTI, leukocytosis with WC count 19.9, hemoglobin 7.9 (no baseline available for comparison), MCV 67, troponin I 0.05, and sodium 128. CT head and CT angiogram of head and neck both unremarkable with chest x-ray also showing no acute process. EKG had revealed sinus tachycardia at [address]/T-wave changes noted as reviewed by me. The patient was admitted for presumed pyelonephritis and started on IV ceftriaxone and IV fluids. The following morning, the patient's hemoglobin dropped to 6.6 and WC count increased to 1.9. The patient was transfused 1 unit of PRBCs and sent to [facility] for further evaluation. Iron studies came back and showed severe iron deficiency anemia with an iron sat of 5%. GI was consulted for possible upper and lower endoscopy which was performed on 08/20 and demonstrated circumferential ulcerated sigmoid colonic mass with 1 cm cecal polyp and once Corea transverse descending colon polyp. She was also found to have a small hiatal hernia and esophagitis. She underwent a CT abdomen and pelvis which showed a large segment of thickened sigmoid colon with a hypodense collection anterior likely related to abscess formation. Surgery was consulted and plans are for colectomy with colostomy formation. Patient seen and examined at bedside. She denies any abdominal pain, nausea, vomiting, or diarrhea. She is anxious about her surgery. She reports that she easily could have walked up one flight of stairs prior to admission without shortness of breath or chest pain, which she would've become fatigued. She is unsure if she could've had the energy to walk one city block but is sure she would not have had chest pain. She is independent in all of her ADLs. She does not use any assistive devices. She denies any episodes of chest pain or shortness of breath in the last 30 days. She denies any syncopal episodes. General: non toxic, no distress, appears at stated age Derm: warm, dry Head: atraumatic, normocephalic, symmetric Eyes: EOMI, no lid lag, anicteric sclera Mouth: no lip lesion, mucus membranes moist Cardiovascular: S1S2 reg, no murmur, positive posterior tibial pulse bilateral, Lungs: CTA bilateral, no rhonchi, no rales , no accessory muscle use Abdominal: soft, nontender to palpation, no guarding, no appreciable organomegaly Ext: no gross muscle atrophy, no edema, no contractures Neuro: CN II-XI grossly intact, no focal neuro deficits Psych: Alert, oriented, appropriate affect Sigmoid mass Possible abscess - plan for colecomy with colostomy - no further testing warrented prior to surgery - NSQIP with bellow average risk for serious complication, pneumoina, and - start zosyn Severe Iron deficiency anemia Thrombocytosis - IV iron - follow CBC - outpatient f/u [facility] oncology UTI, POA - Rocephin X 3 dayy- completed today Objective - Vital Signs Vital signs: Vital Signs Temp 97.8 F 08/21/21 21:00 Pulse 101 H 08/21/21 21:00 Resp 20 08/21/21 21:00 BP 169/88 08/21/21 21:00 Pulse Ox 96 08/21/21 21:00 Intake & Output 08/21/21 08/21/21 08/22/21 06:59 18:59 06:59 Intake Total 290 1300 Balance 290 1300 Intake: Intake, IV Titration 290 Amount Lactated Ringers 1,000 ml 240 @ 20 mls/hr IV .Q24H LAZ Rx#:[id number] cefTRIAXone 1 gm In 50 Sodium Chloride 0.9% 50 ml @ 100 mls/hr IVPB Q24HR LAZ Rx#:[id number] Oral 1300 Other: Voiding Method Toilet # Voids 2 3 # Bowel Movements 2 - Labs CBC & Chem 7: 08/21/21 11:56 08/21/21 12:04 Labs: Abnormal Lab Results - Last 24 Hours (Table) 08/21/21 08/21/21 Range/Units 11:56 12:04 WBC 16.5 H (3.8-10.6) k/uL Hgb 8.2 L (11.4-16.0) gm/dL Hct 28.2 L (34.0-46.0) % MCV 72.9 L (80.0-100.0) fL MCH 21.0 L (25.0-35.0) pg MCHC 28.9 L (31.0-37.0) g/dL RDW 19.7 H (11.5-15.5) % Plt Count 793 H (150-450) k/uL Sodium 134 L (137-145) mmol/L BUN 5 L (7-17) mg/dL Creatinine 0.51 L (0.52-1.04) mg/dL Glucose 123 H (74-99) mg/dL
[2021-08-21] MEDS: PIPERACILLIN-TAZOBACTAM 3.375 GM in SODIUM CHLORIDE 0.9% 100 ML IVPB SCH (23:17)
[2021-08-22 06:17] LABS: Anisocytosis Slight; Basophils % (A) 0 %; Eosinophils # (A) 0.1 k/uL (0-0.7); Eosinophils % (A) 1 %; HCT 27.1 % (34.0-46.0); HGB 7.8 gm/dL (11.4-16.0); Hypochromasia Marked; Lymphocytes # (A) 1.7 k/uL (1.0-4.8); Lymphocytes % (A) 13 %; MCHC 28.9 g/dL (31.0-37.0); MCV 72.7 fL (80.0-100.0); Mean Platelet Volume 6.5; Microcytosis Marked; Monocytes # (A) 0.5 k/uL (0-1.0); Monocytes % (A) 4 %; Neutrophils # (A) 10.4 k/uL (1.3-7.7); Neutrophils % (A) 80 %; Platelet Count 794 k/uL (150-450); Poikilocytosis Slight; RBC 3.72 m/uL (3.80-5.40)
[2021-08-22 06:42] LABS: African American GFR (CKD) >90 (>60 ml/min/1.73 sqM); Anion Gap 5 mmol/L; Blood Urea Nitrogen 3 mg/dL (7-17); Calcium 8.5 mg/dL (8.4-10.2); Carbon Dioxide 28 mmol/L (22-30); Chloride 101 mmol/L (98-107); Glucose 111 mg/dL (74-99); Non-African American GFR(CKD) >90 (>60 ml/min/1.73 sqM); Potassium 3.6 mmol/L (3.5-5.1); Sodium 134 mmol/L (137-145)
[2021-08-22] MEDS: PANTOPRAZOLE 40 MG/10 ML VIAL IVP SCH (07:41)
[2021-08-22] MEDS: SODIUM FERRIC GLUCONAT-SUCROSE 125 MG in SODIUM CHLORIDE 0.9% 100 ML IVPB SCH (08:01)
[2021-08-22] MEDS: PIPERACILLIN-TAZOBACTAM 3.375 GM in SODIUM CHLORIDE 0.9% 100 ML IVPB SCH ×2 (09:11→13:44)
[2021-08-22] MEDS ORDERED: IV FLUID CONTINUATION 1,000 ML IV ONE (12:12)
[2021-08-22] MEDS ORDERED: metroNIDAZOLE-NS PMX 500 MG in SALINE 1 100ML.BAG IVPB STA (12:22)
[2021-08-22] MEDS ORDERED: ONDANSETRON 4 MG/2 ML VIAL ONE (12:48)
[2021-08-22] MEDS ORDERED: fentaNYL (PF) 50 MCG/ML 2 ML AMP IVP ONE (13:00)
[2021-08-22] MEDS ORDERED: MIDAZOLAM 2 MG/2 ML VIAL IVP ONE (13:00)
[2021-08-22] MEDS ORDERED: NALOXONE 0.4 MG/ML 1 ML VIAL IV PRN (13:11)
--- NOTE | 2021-08-22 13:11 | P.ANPRN ---
Procedure Note - Anesthesia - Epidural/Spinal Epidural Continuous Time Out Performed: Yes Date of Procedure: 08/22/21 Procedure Start Time: 12:59 Procedure Stop Time: 13:06 Location of Patient: PreOp Indication: Acute Post-Operative Pain, Requested by Surgeon Sedation Type: Sedate with meaningful contact maintained Preparation: Sterile Dressing Position: Sitting Catheter: Indwelling Needle Guage: 18 Injectate: Test Dose Lidocaine1.5% w/1:200,000 epi Blood Aspirated: No Pain Paresthesia on Injection Noted: No Events: Uneventful and Well Tolerated
[2021-08-22] MEDS ORDERED: DEXAMETHASONE SOD PHOSPHATE 4 MG/ML 1 ML VIAL IVP ONE (13:15)
[2021-08-22] MEDS ORDERED: ONDANSETRON 4 MG/2 ML VIAL IVP ONE (13:15)
[2021-08-22] MEDS ORDERED: HEPARIN SODIUM,PORCINE/PF 5,000 UNIT/0.5 ML SYRINGE SQ ONE (13:28)
[2021-08-22] MEDS ORDERED: ROCURONIUM 10 MG/ML (5 ML VIAL) IV ONE (13:39)
[2021-08-22] MEDS ORDERED: LIDOCAINE 1% INJ 10MG/ML (20 ML MDV) ONE (13:39)
[2021-08-22] MEDS ORDERED: NEOSTIGMINE 1 MG/ML 10 ML VIAL ONE (13:39)
[2021-08-22] MEDS ORDERED: fentaNYL (PF) 50 MCG/ML 2 ML AMP ONE (13:39)
[2021-08-22] MEDS ORDERED: PHENYLEPHRINE-0.9% NACL SYG 1,000 MCG/10 ML SYRINGE ONE (13:39)
[2021-08-22] MEDS ORDERED: PROPOFOL 10 MG/ML 20 ML VIAL IV ONE (13:39)
[2021-08-22] MEDS ORDERED: GLYCOPYRROLATE 0.2 MG/ML 2 ML VIAL ONE (13:39)
[2021-08-22] MEDS ORDERED: SUCCINYLCHOLINE CHLORIDE 100 MG/5 ML SYR IV ONE (13:39)
[2021-08-22] MEDS ORDERED: ALBUMIN HUMAN 5% (12.5gm) 250 ML BOTTLE IVPB ONE (13:39)
[2021-08-22] MEDS ORDERED: LACTATED RINGERS 1,000 ML IV ONE ×2 (13:43→15:00)
[2021-08-22] MEDS ORDERED: SODIUM CHLORIDE 0.9% 1,000 ML IV ONE (13:50)
--- NOTE | 2021-08-22 14:31 | P.PN ---
Subjective Progress Note Date: 08/22/21 Principal diagnosis: Anemia 61-year-old female who presented to [facility] with complaints of fatigue and weakness for which she states was occurring over the last 1 month or so. Patient was noted to have a hemoglobin of 6.6 at [place] was given 1 unit of PRBC transfusion and transferred here for further gastroenterology management. She had iron studies consistent with iron deficiency anemia. Yesterday she underwent an EGD and colonoscopy. The upper endoscopy revealed a small to moderate size hiatal hernia but no evidence of esophagitis or peptic ulcer disease. Colonoscopy revealed a circumferential ulcerated sigmoid colon mass extending from 30-40 cm from the anal verge status post biopsy and tattooing. There was also cecal polyp in transverse descending colon polyp status post polypectomy. Gen. surgery was consulted and plan is to proceed with sigmoid colectomy with possible colostomy today. Patient is denying any abdominal pain, nausea, or vomiting. No further rectal bleeding. Hemoglobin stable 7.8 Objective - Vital Signs Vital signs: Vital Signs Temp 98.4 F 08/22/21 05:00 Pulse 85 08/22/21 05:00 Resp 18 08/22/21 05:00 BP 158/79 08/22/21 05:00 Pulse Ox 91 L 08/22/21 05:00 Intake & Output 08/21/21 08/22/21 08/22/21 18:59 06:59 18:59 Intake Total 1300 340 Balance 1300 340 Intake: Intake, IV Titration 340 Amount Lactated Ringers 1,000 ml 240 @ 20 mls/hr IV .Q24H [facility] Rx#:[id number] Piperacillin-Tazobactam 3 100 .375 gm In Sodium Chloride 0.9% 100 ml @ 25 mls/hr IVPB Q8HR [facility] Rx# :[id number] Oral 1300 0 Other: Voiding Method Toilet Toilet Toilet # Voids 3 4 1 # Bowel Movements 2 1 - Exam General appearance: The patient is alert, oriented, appears in no acute distress. HET: Head is normocephalic and atraumatic. Conjunctiva pink. Sclera anicteric. Neck: Supple without lymphadenopathy. Abdomen: Soft, nontender, nondistended with bowel sounds. No guarding or rigidity. Extremities: Normal skin color and turgor. No pedal edema Skin: No rashes, no jaundice Neurological: No focal deficits. Alert and oriented -3. - Labs CBC & Chem 7: 08/22/21 05:38 08/22/21 05:38 Labs: Abnormal Lab Results - Last 24 Hours (Table) 08/21/21 08/21/21 08/22/21 Range/Units 11:56 12:04 05:38 WBC 16.5 H 13.0 H (3.8-10.6) k/uL RBC 3.72 L (3.80-5.40) m/uL Hgb 8.2 L 7.8 L (11.4-16.0) gm/dL Hct 28.2 L 27.1 L (34.0-46.0) % MCV 72.9 L 72.7 L (80.0-100.0) fL MCH 21.0 L 21.0 L (25.0-35.0) pg MCHC 28.9 L 28.9 L (31.0-37.0) g/dL RDW 19.7 H 20.0 H (11.5-15.5) % Plt Count 793 H 794 H (150-450) k/uL Neutrophils # 10.4 H (1.3-7.7) k/uL Sodium 134 L (137-145) mmol/L BUN 5 L (7-17) mg/dL Creatinine 0.51 L (0.52-1.04) mg/dL Glucose 123 H (74-99) mg/dL 08/22/21 Range/Units 05:38 WBC (3.8-10.6) k/uL RBC (3.80-5.40) m/uL Hgb (11.4-16.0) gm/dL Hct (34.0-46.0) % MCV (80.0-100.0) fL MCH (25.0-35.0) pg MCHC (31.0-37.0) g/dL RDW (11.5-15.5) % Plt Count (150-450) k/uL Neutrophils # (1.3-7.7) k/uL Sodium 134 L (137-145) mmol/L BUN 3 L (7-17) mg/dL Creatinine (0.52-1.04) mg/dL Glucose 111 H (74-99) mg/dL Assessment and Plan (1) Iron deficiency anemia Narrative/Plan: 61-year-old female who had presented to [facility] with complaints of weakness and fatigue. She is found to have a hemoglobin of 6.6 and was given 1 unit of PRBC transfusion and transferred to this hospital for further workup. The patient denies any previous history of GI bleed. She denies any history of peptic ulcer disease or gastric reflux disease. She's had no previous EGD or colonoscopy. Denies any signs or symptoms of GI bleed such as melena, hematochezia, or hematemesis. Admitting labs are consistent with a microcytic anemia, iron studies are consistent with iron deficiency anemia. Patient was started on oral iron. Hemoglobin is stable at 7.6. Possible etiologies include peptic ulcer disease, gastritis, esophagitis, AVM or other possible etiologies. We'll plan to proceed with EGD and colonoscopy tomorrow. EGD and colonoscopy performed. EGD with small to moderate hiatal hernia with no evidence of peptic ulcer disease or esophagitis. Colonoscopy significant for a sigmoid colon mass. Gen. surgery has been consulted. Agree with IV iron replacement Current Visit: Yes Status: Acute Code(s): D50.9 - IRON DEFICIENCY ANEMIA, UNSPECIFIED SNOMED Code(s): 29557191 (2) Microcytic anemia Current Visit: Yes Status: Acute Code(s): D50.9 - IRON DEFICIENCY ANEMIA, UNSPECIFIED SNOMED Code(s): 308229764 (3) Urinary tract infection Current Visit: Yes Status: Acute Code(s): N39.0 - URINARY TRACT INFECTION, SITE NOT SPECIFIED SNOMED Code(s): 19274181 (4) Mass of colon Narrative/Plan: Patient is scheduled today for sigmoid colectomy with possible colostomy Current Visit: Yes Status: Acute Code(s): K63.89 - OTHER SPECIFIED DISEASES OF INTESTINE SNOMED Code(s): 857542273 Plan: 1. Continue symptomatic and supportive care 2. Gen. surgery following up with plan for sigmoid colectomy with possible colostomy today Thank you for this consultation, we will sign off at this time. Dr. Jonny Cuenca I agree with the dictator's note, documented as a scribe by Tamie Bui.
[2021-08-22] MEDS ORDERED: DEXTROSE 5% IVPB STA ×2 (15:01)
[2021-08-22] MEDS ORDERED: WATER IVPB STA ×2 (15:01)
[2021-08-22] MEDS ORDERED: MAGNESIUM SULFATE IVPB STA ×2 (15:01)
[2021-08-22] MEDS ORDERED: ACETAMINOPHEN IV (For NPO) 1,000 MG in EMPTY BAG 1 BAG IVPB PRN (16:34)
[2021-08-22] MEDS ORDERED: ONDANSETRON 4 MG/2 ML VIAL IVP PRN (16:34)
--- NOTE | 2021-08-22 16:41 | P.OP ---
Date of Procedure: 08/22/21 Procedure(s) Performed: PREOPERATIVE DIAGNOSIS: Perforated sigmoid colon mass POSTOPERATIVE DIAGNOSIS: Same PROCEDURE: Left colectomy, small bowel resection, mobilization splenic flexure, drainage of abdominal abscess SURGEON: Hiro EBL: 100 mL ANESTHESIA: General COMPLICATIONS: None OPERATIVE PROCEDURE: Patient place in the operative table in the supine position. The patient was placed under general anesthesia. The patient was then placed in lithotomy. The abdomen was prepped and draped in usual sterile fashion. A vertical incision was made extending from the mid epigastric location to the suprapubic location. The fascia was divided as well. The Bookwalter retractor was utilized. The patient had a large mass involving the sigmoid colon. This was densely adherent to the abdominal wall. Carefully blunt dissection took place. An abscess cavity was encountered between the sigmoid colon mass and the anterior abdominal wall. Pus was evacuated and cultured. The mass was then mobile from the abdominal wall. There were 2 loops of small intestine that were densely adherent to this mass. The small intestine was divided at 4 separate locations as it entered into this mass. The colon was then divided approximately 10 cm distal to the mass. I then divided the mesentery involving the left colon using a combination of LigaSure and 0 silk ties. The splenic flexure was fully mobilized using blunt dissection and cautery. I then divided the mid to distal transverse colon using a linear 75 stapler as well. The specimen was passed off after the mesentery was fully divided. The distance between the 2 portions of bowel that had been removed was only approximately 10-12 inches. Rather than have to anastomosis in such close proximity I excised that portion of small bowel between the 2 resection sites. The small bowel anastomosis took place first. The antimesenteric portion of the staple line was removed. The linear stapler was fired along the antimesenteric border. The remaining defect was closed using a TX 60 device. A 3-0 GI silk crotch stitch was placed. The mesentery was reapproximated using a running 3-0 Vicryl suture. I then was able to create a [id number] anastomosis between the distal transverse colon and the distal sigmoid colon. Took place in a similar fashion by excising the antimesenteric portion of the staple line. The linear stapler was fired along the antimesenteric border. The remaining defect was again closed using a TX 60 device. The abdomen was then copiously irrigated with saline. No bleeding or further purulence was seen. The liver was palpated and appeared normal. No definite carcinomatosis was seen. The patient had a fibroid uterus. A drain was brought into the abdomen through the left infraumbilical rectus region where the abscess had been located. This exited from the left lateral lower abdominal wall. This is sutured in place using a 3- 0 silk stitch. The midline fascia was then reapproximated using 3 separate double-stranded #1 PDS sutures. The subcutaneous tissues were closed using 3-0 Vicryl sutures. The skin was then closed using diana. Sterile dressings were then applied. DISPOSITION: Stable to recovery room
[2021-08-22] MEDS: ROPIVACAINE 250 MG, HYDROMORPHONE (PF) 5 MG in SODIUM CHLORIDE 0.9% 200 ML EPIDURAL PRN (17:06)
[2021-08-22] MEDS: METOCLOPRAMIDE 5 MG/ML 2 ML VIAL IVP SCH (18:22)
[2021-08-22] MEDS: LACTATED RINGERS 1,000 ML IV SCH (18:22)
--- NOTE | 2021-08-22 18:57 | P.PN ---
Subjective Progress Note Date: 08/22/21 Principal diagnosis: fatigue Patient is a 62-year-old female with no known PMH, who doesn't follow with a PCP who had presented to [facility] on 08/15 with complaints of lethargy and weakness. The patient had underwent an extensive evaluation at [facility] with UA consistent with UTI, leukocytosis with WC count 19.9, hemoglobin 7.9 (no baseline available for comparison), MCV 67, troponin I 0.05, and sodium 128. CT head and CT angiogram of head and neck both unremarkable with chest x-ray also showing no acute process. EKG had revealed sinus tachycardia at [address]/T-wave changes noted as reviewed by me. The patient was admitted for presumed pyelonephritis and started on IV ceftriaxone and IV fluids. The following morning, the patient's hemoglobin dropped to 6.6 and WC count increased to 1.9. The patient was transfused 1 unit of PRBCs and sent to [facility] for further evaluation. Iron studies came back and showed severe iron deficiency anemia with an iron sat of 5%. GI was consulted for possible upper and lower endoscopy which was performed on 08/20 and demonstrated circumferential ulcerated sigmoid colonic mass with 1 cm cecal polyp and once Corea transverse descending colon polyp. She was also found to have a small hiatal hernia and esophagitis. She underwent a CT abdomen and pelvis which showed a large segment of thickened sigmoid colon with a hypodense collection anterior likely related to abscess formation. Surgery was consulted and on 08/22 patient underwent left-sided colectomy, small bowel resection, and drainage of abdominal abscess for perforated sigmoid colon mass. Patient seen and examined at bedside with family present. She is feeling nauseated and having a headache. She denies any chest pain, shortness of breath, or presyncope. 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 Bosch Anticipated discharge: unetermined Anticipated discharge place: Home A total of 25 minutes was spent on the care of this complex patient more than 5 0% of the time was spent in counseling and care coordination. Objective - Vital Signs Vital signs: Vital Signs Temp 97.6 F 08/22/21 16:37 Pulse 90 08/22/21 18:18 Resp 16 08/22/21 18:18 BP 154/78 08/22/21 18:18 Pulse Ox 92 L 08/22/21 18:18 Intake & Output 08/21/21 08/22/21 08/22/21 18:59 06:59 18:59 Intake Total 8149 513 7967 Output Total 900 Balance 3591 884 3176 Intake: IV 2404 Intake, IV Titration 340 Amount Lactated Ringers 1,000 ml 240 @ 20 mls/hr IV .Q24H [facility] Rx#:[id number] Piperacillin-Tazobactam 3 100 .375 gm In Sodium Chloride 0.9% 100 ml @ 25 mls/hr IVPB Q8HR [facility] Rx# :[id number] Oral 1300 0 Blood Product 310 Rc As-1 Unit 310 [id number] Output: Urine 800 Estimated Blood Loss 100 Other: Voiding Method Toilet Toilet Toilet # Voids 3 4 1 # Bowel Movements 2 1 - Labs CBC & Chem 7: 08/22/21 05:38 08/22/21 05:38 Labs: Abnormal Lab Results - Last 24 Hours (Table) 08/22/21 08/22/21 08/22/21 Range/Units 05:38 05:38 08:37 WBC 13.0 H (3.8-10.6) k/uL RBC 3.72 L (3.80-5.40) m/uL Hgb 7.8 L (11.4-16.0) gm/dL Hct 27.1 L (34.0-46.0) % MCV 72.7 L (80.0-100.0) fL MCH 21.0 L (25.0-35.0) pg MCHC 28.9 L (31.0-37.0) g/dL RDW 20.0 H (11.5-15.5) % Plt Count 794 H (150-450) k/uL Neutrophils # 10.4 H (1.3-7.7) k/uL Sodium 134 L (137-145) mmol/L BUN 3 L (7-17) mg/dL Glucose 111 H (74-99) mg/dL Crossmatch See Detail
[2021-08-23] MEDS: PIPERACILLIN-TAZOBACTAM 3.375 GM in SODIUM CHLORIDE 0.9% 100 ML IVPB SCH ×3 (00:04→17:23)
[2021-08-23] MEDS: HEPARIN SODIUM,PORCINE/PF 5,000 UNIT/0.5 ML SYRINGE SQ SCH ×3 (00:12→17:21)
[2021-08-23] MEDS: METOCLOPRAMIDE 5 MG/ML 2 ML VIAL IVP SCH ×4 (00:16→17:22)
[2021-08-23 06:59] LABS: INR 1.1 (<1.2); Partial Thromboplastin Time 27.8 sec (22.0-30.0); Prothrombin Time 11.3 sec (9.0-12.0)
--- NOTE | 2021-08-23 07:20 | P.PN ---
Progress Note - Text Progress Note Date: 08/23/21 Postoperative day # 1 status post sigmoid colectomy ,epidural catheter placed for postoperative analgesia, patient doing well epidural site okay, patient currently on combination of epidural infusion solution of Ropivacaine 0.0625% and Dilaudid 20 g per mL the infusion rate at 6 ml per hour , patient had no motor deficit, epidural site okay , vital signs stable ,VAS 1 /10 , Assessment and plan= post operative day # 1 patient doing well ,pain well controlled , there is no anesthesia related complications
[2021-08-23] MEDS: PANTOPRAZOLE 40 MG/10 ML VIAL IVP SCH (08:00)
[2021-08-23] MEDS: SODIUM FERRIC GLUCONAT-SUCROSE 125 MG in SODIUM CHLORIDE 0.9% 100 ML IVPB SCH (08:00)
[2021-08-23 08:43] LABS: Anisocytosis Moderate; HCT 34.5 % (34.0-46.0); Hypochromasia Marked; MCH 21.8 pg (25.0-35.0); MCHC 27.9 g/dL (31.0-37.0); Mean Platelet Volume 7.8; Microcytosis Slight; Platelet Count 794 k/uL (150-450); Poikilocytosis Slight; RDW 20.4 % (11.5-15.5); WBC 19.8 k/uL (3.8-10.6)
[2021-08-23 08:45] LABS: HGB 9.6 gm/dL (11.4-16.0); MCV 78.3 fL (80.0-100.0)
--- NOTE | 2021-08-23 11:14 | P.PN ---
<Donna Chaudhry - Last Filed: 08/23/21 11:00> Subjective Progress Note Date: 08/23/21 CHIEF COMPLAINT: Perforated sigmoid colon mass HISTORY OF PRESENT ILLNESS: Patient is postop day #1 status post Left colectomy, small bowel resection, mobilization splenic flexure, drainage of abdominal abscess for perforated sigmoid colon mass. Patient is currently lying in bed comfortably. She has epidural for pain control. She currently denies any pain. Denies any nausea or vomiting. WBC 19.8 Hgb 9.6 which is up from 7.8. Patient did receive a unit of blood yesterday. CEA elevated at 7.8 PHYSICAL EXAM: VITAL SIGNS: Reviewed. GENERAL: Well-developed in no acute distress. HEENT: No sclera icterus. Extraocular movements grossly intact. Moist buccal mucosa. Head is atraumatic, normocephalic. ABDOMEN: Soft. Nondistended. Incisional dressing clean dry and intact NEUROLOGIC: Alert and oriented. Cranial nerves II through XII grossly intact. ASSESSMENT: 1. Perforated sigmoid colon mass status post Left colectomy, small bowel resection, mobilization splenic flexure, drainage of abdominal abscess PLAN: -Keep patient nothing by mouth -Continue epidural for pain control -Continue Krishnamurthy catheter -Follow up on pathology and culture results -Continue antibiotics -Encouraged patient to use incentive spirometer -Encouraged patient to increase activity -Increase IV fluids to D5 45 with potassium at 125cc/hr -GI prophylaxis Protonix and DVT prophylaxis subcu heparin Physician Senior Web Analyst note has been reviewed by physician. Signing provider agrees with the documented findings, assessment, and plan of care. Objective - Vital Signs Vital signs: Vital Signs Temp 95.6 F L 08/23/21 07:00 Pulse 80 08/23/21 07:00 Resp 15 08/23/21 07:00 BP 144/75 08/23/21 07:00 Pulse Ox 96 08/23/21 07:00 Intake & Output 08/22/21 08/23/21 08/23/21 18:59 06:59 18:59 Intake Total 2714 100 Output Total 900 510 20 Balance 1814 -410 -20 Intake: IV 2404 Intake, IV Titration 100 Amount Piperacillin-Tazobactam 3 100 .375 gm In Sodium Chloride 0.9% 100 ml @ 25 mls/hr IVPB Q8HR [facility] Rx# :[id number] Oral 0 Blood Product 310 Rc As-1 Unit 310 [id number] Output: Drainage 110 20 Left Lower Abdomen 110 20 Urine 800 400 Estimated Blood Loss 100 Other: Voiding Method Toilet Toilet Indwelling Catheter # Voids 1 0 # Bowel Movements 1 1 - Labs CBC & Chem 7: 08/23/21 05:46 08/22/21 05:38 Labs: Abnormal Lab Results - Last 24 Hours (Table) 08/22/21 08/23/21 08/23/21 Range/Units 08:37 05:46 05:46 WBC 19.8 H (3.8-10.6) k/uL Hgb 9.6 L D (11.4-16.0) gm/dL MCV 78.3 L D (80.0-100.0) fL MCH 21.8 L (25.0-35.0) pg MCHC 27.9 L (31.0-37.0) g/dL RDW 20.4 H (11.5-15.5) % Plt Count 794 H (150-450) k/uL Carcinoembryonic Ag 7.8 H (0.0-4.9) ng/mL Crossmatch See Detail Microbiology - Last 24 Hours (Table) 08/22/21 11:21 Gram Stain - Preliminary Other - Other Wound Culture - Preliminary 08/22/21 11:21 Anaerobic Culture - Preliminary Other - Other <Yahir Bosch - Last Filed: 08/23/21 14:59> Subjective As above. Patient tired. No pain. No bowel function. Denies nausea vomiting. Labs noted. Gradually increase activity. Keep nothing by mouth. Objective - Vital Signs Vital signs: Vital Signs Temp 98.4 F 08/23/21 12:16 Pulse 84 08/23/21 12:16 Resp 16 08/23/21 12:16 BP 150/90 08/23/21 12:16 Pulse Ox 90 L 08/23/21 12:16 Intake & Output 08/22/21 08/23/21 08/23/21 18:59 06:59 18:59 Intake Total 2714 100 Output Total 900 510 38 Balance 1814 -410 -38 Intake: IV 2404 Intake, IV Titration 100 Amount Piperacillin-Tazobactam 3 100 .375 gm In Sodium Chloride 0.9% 100 ml @ 25 mls/hr IVPB Q8HR [facility] Rx# :[id number] Oral 0 Blood Product 310 Rc As-1 Unit 310 [id number] Output: Drainage 110 38 Left Lower Abdomen 110 38 Urine 800 400 Estimated Blood Loss 100 Other: Voiding Method Toilet Toilet Indwelling Catheter # Voids 1 0 # Bowel Movements 1 1 - Labs CBC & Chem 7: 08/23/21 05:46 08/22/21 05:38 Labs: Abnormal Lab Results - Last 24 Hours (Table) 08/22/21 08/23/21 08/23/21 Range/Units 08:37 05:46 05:46 WBC 19.8 H (3.8-10.6) k/uL Hgb 9.6 L D (11.4-16.0) gm/dL MCV 78.3 L D (80.0-100.0) fL MCH 21.8 L (25.0-35.0) pg MCHC 27.9 L (31.0-37.0) g/dL RDW 20.4 H (11.5-15.5) % Plt Count 794 H (150-450) k/uL Neutrophils # (Manual) 18.22 H (1.3-7.7) k/uL Lymphocytes # (Manual) 0.79 L (1.0-4.8) k/uL Carcinoembryonic Ag 7.8 H (0.0-4.9) ng/mL Crossmatch See Detail Microbiology - Last 24 Hours (Table) 08/22/21 11:21 Gram Stain - Preliminary Other - Other Wound Culture - Preliminary 08/22/21 11:21 Anaerobic Culture - Preliminary Other - Other
[2021-08-23] MEDS ORDERED: DEXTROSE 5%-0.45% NACL 1,000 ML IV SCH (11:15)
[2021-08-23] MEDS: D5-0.45% NACL WITH KCL 20MEQ/L 1,000 ML IV SCH ×2 (11:32→21:38)
[2021-08-23 13:56] LABS: Lymphocytes # (M) 0.79 k/uL (1.0-4.8); Monocytes # (M) 0.79 k/uL (0-1.0); Neutrophils # (M) 18.22 k/uL (1.3-7.7); Neutrophils % (M) 92 %; Nucleated Red Blood Cells 0 /100 WBC (0-0); Total Cells Counted 100
[2021-08-23] MEDS ORDERED: RX INFO: IV CONTRAST WAS GIVEN 1 EACH MISC MISCELLANE PRN (14:13)
[2021-08-23 15:19] VITALS: BMI 25.6
--- NOTE | 2021-08-23 16:43 | XR ---
EXAMINATION TYPE: XR chest 2V DATE OF EXAM: 08/23/2021 COMPARISON: NONE TECHNIQUE: PA and lateral views submitted. HISTORY: Shortness of breath FINDINGS: There is bilateral lower lobe infiltrate. There is evidence of free intraperitoneal abdominal air. No overt failure or pneumothorax. Diffuse osteopenia. Hypertrophic and degenerative change of the spine . IMPRESSION: 1. Free intraperitoneal air. Report called to nurse. 2. Bilateral lower lobe infiltrate.
[2021-08-23] MEDS ORDERED: SODIUM CHLORIDE 0.9% 500 ML 500 ML IV ONE (17:35)
[2021-08-23] MEDS: LACTATED RINGERS 1,000 ML IV SCH (17:46)
--- NOTE | 2021-08-23 21:03 | P.PN ---
Subjective Progress Note Date: 08/23/21 Principal diagnosis: fatigue Patient is a 62-year-old female with no known PMH, who doesn't follow with a PCP who had presented to [facility] on 08/15 with complaints of lethargy and weakness. The patient had underwent an extensive evaluation at [facility] with UA consistent with UTI, leukocytosis with WC count 19.9, hemoglobin 7.9 (no baseline available for comparison), MCV 67, troponin I 0.05, and sodium 128. CT head and CT angiogram of head and neck both unremarkable with chest x-ray also showing no acute process. EKG had revealed sinus tachycardia at [address]/T-wave changes noted as reviewed by me. The patient was admitted for presumed pyelonephritis and started on IV ceftriaxone and IV fluids. The following morning, the patient's hemoglobin dropped to 6.6 and WC count increased to 1.9. The patient was transfused 1 unit of PRBCs and sent to [facility] for further evaluation. Iron studies came back and showed severe iron deficiency anemia with an iron sat of 5%. GI was consulted for possible upper and lower endoscopy which was performed on 08/20 and demonstrated circumferential ulcerated sigmoid colonic mass with 1 cm cecal polyp and once Corea transverse descending colon polyp. She was also found to have a small hiatal hernia and esophagitis. She underwent a CT abdomen and pelvis which showed a large segment of thickened sigmoid colon with a hypodense collection anterior likely related to abscess formation. Surgery was consulted and on 08/22 patient underwent left-sided colectomy, small bowel resection, and drainage of abdominal abscess for perforated sigmoid colon mass. Patient seen and examined at bedside with family present. States pain is well- controlled denies any nausea, vomiting, not passing gas yet. No chest pain or shortness of breath. 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 Bosch Anticipated discharge: unetermined Anticipated discharge place: Home A total of 25 minutes was spent on the care of this complex patient more than 50% of the time was spent in counseling and care coordination. Objective - Vital Signs Vital signs: Vital Signs Temp 98.0 F 08/23/21 18:52 Pulse 88 08/23/21 20:16 Resp 16 08/23/21 20:16 BP 158/81 08/23/21 18:52 Pulse Ox 93 L 08/23/21 18:52 Intake & Output 08/23/21 08/23/21 08/24/21 06:59 18:59 06:59 Intake Total 100 Output Total 510 283 50 Balance -410 -283 -50 Weight 78.7 kg Intake: Intake, IV Titration 100 Amount Piperacillin-Tazobactam 3 100 .375 gm In Sodium Chloride 0.9% 100 ml @ 25 mls/hr IVPB Q8HR [facility] Rx# :[id number] Oral 0 Output: Drainage 110 58 Left Lower Abdomen 110 58 Urine 400 225 50 Other: Voiding Method Toilet Indwelling Catheter Indwelling Catheter # Voids 0 # Bowel Movements 1 - Labs CBC & Chem 7: 08/23/21 05:46 08/22/21 05:38 Labs: Abnormal Lab Results - Last 24 Hours (Table) 08/23/21 08/23/21 Range/Units 05:46 05:46 WBC 19.8 H (3.8-10.6) k/uL Hgb 9.6 L D (11.4-16.0) gm/dL MCV 78.3 L D (80.0-100.0) fL MCH 21.8 L (25.0-35.0) pg MCHC 27.9 L (31.0-37.0) g/dL RDW 20.4 H (11.5-15.5) % Plt Count 794 H (150-450) k/uL Neutrophils # (Manual) 18.22 H (1.3-7.7) k/uL Lymphocytes # (Manual) 0.79 L (1.0-4.8) k/uL Carcinoembryonic Ag 7.8 H (0.0-4.9) ng/mL Microbiology - Last 24 Hours (Table) 08/22/21 11:21 Gram Stain - Preliminary Other - Other Wound Culture - Preliminary 08/22/21 11:21 Anaerobic Culture - Preliminary Other - Other
--- NOTE | 2021-08-23 22:33 | P.CONS ---
History of Present Illness - Reason for Consult Consult date: 08/23/21 New Colon Cancer Requesting physician: Georgina Ardon - Chief Complaint Symptomatic Anemia - History of Present Illness Mrs Miller is a pleasant female who had not been feeling well the past few months. She admits to decreased appetite and >30lb weight loss. She was brought to hospital after her was concerned by her severe weakness. She was seen at [facility] and found to be anemic. CTA at [facility] was negative for PE and CT Brain negative, apparently after hemoglobin dropped further she was transferred to [facility]. On further work-up Large mass in colon was identified, biopsy revealed adenocarcinoma. She was therefore seen by surgery and underwent a left colectomy and small bowel resection, as well as drainage of abdominal cyst. Mass was adherent to abdominal wall, therefore likely need of adjuvant treatment however definitive recommendations will be determined after final pathology is resulted. Review of Systems All systems: negative Constitutional: Reports as per HPI Past Medical History Past Medical History: Musculoskeletal Disorder Additional Past Medical History / Comment(s): kidney infection History of Any Multi-Drug Resistant Organisms: None Reported Past Surgical History: Orthopedic Surgery Additional Past Surgical History / Comment(s): allison wrist surgery 2009 Past Anesthesia/Blood Transfusion Reactions: No Reported Reaction Smoking Status: Former smoker - Past Family History Father Family Medical History: Cancer Mother Family Medical History: Vascular Disorder Medications and Allergies Home Medications Medication Instructions Recorded Confirmed Type Cholecalciferol [Vitamin D3 (25 25 mcg PO DAILY 08/17/21 08/17/21 History Mcg = 1000 Iu)] Multivitamins, Thera [Multivitamin 1 tab PO DAILY 08/17/21 08/17/21 History (formulary)] Allergies Allergy/AdvReac Type Severity Reaction Status Date / Time No Known Allergies Allergy Unverified 08/17/21 12:47 Physical Exam Vitals: Vital Signs Temp Pulse Pulse Resp BP Pulse Ox 08/23/21 12:16 98.4 F 84 16 150/90 90 L 08/23/21 07:00 95.6 F L 80 15 144/75 96 08/23/21 04:09 97.9 F 78 16 150/80 94 L 08/22/21 21:17 89 18 125/68 94 L 08/22/21 21:00 82 18 112/70 98 08/22/21 20:00 86 18 120/71 97 08/22/21 19:30 84 18 119/74 97 08/22/21 18:45 78 18 129/65 94 L 08/22/21 18:30 85 18 138/71 93 L 08/22/21 18:18 90 16 154/78 92 L 08/22/21 17:45 92 20 145/70 96 08/22/21 17:30 97 20 155/75 96 08/22/21 17:15 92 20 143/75 96 08/22/21 17:07 91 20 140/68 100 08/22/21 16:52 88 18 130/70 99 08/22/21 16:37 97.6 F 83 20 142/67 97 Intake and Output 08/22/21 08/23/21 08/23/21 22:59 06:59 14:59 Intake Total 614 100 Output Total 980 430 20 Balance -366 -330 -20 Intake: IV 304 Intake, IV Titration 100 Amount Piperacillin-Tazobactam 3 100 .375 gm In Sodium Chloride 0.9% 100 ml @ 25 mls/hr IVPB Q8HR [facility] Rx# :[id number] Oral 0 Blood Product 310 Rc As-1 Unit 310 [id number] Output: Drainage 80 30 20 Left Lower Abdomen 80 30 20 Urine 800 400 Estimated Blood Loss 100 Other: Voiding Method Toilet Indwelling Catheter # Voids 0 # Bowel Movements 1 - Constitutional General appearance: cooperative, no acute distress - EENT Eyes: EOMI, PERRLA ENT: NA/AT - Neck Neck: normal ROM - Respiratory Respiratory: bilateral: CTA - Cardiovascular Rhythm: regularly irregular - Gastrointestinal Recent Surgery evidence General gastrointestinal: soft, tenderness - Integumentary Integumentary: pale - Neurologic Neurologic: CNII-XII intact - Musculoskeletal Musculoskeletal: generalized weakness, strength equal bilaterally - Psychiatric Psychiatric: A&O x's 3, appropriate affect, intact judgment & insight Results CBC & Chem 7: 08/23/21 05:46 08/22/21 05:38 Labs: Abnormal Lab Results - Last 24 Hours (Table) 08/22/21 08/23/21 08/23/21 Range/Units 08:37 05:46 05:46 WBC 19.8 H (3.8-10.6) k/uL Hgb 9.6 L D (11.4-16.0) gm/dL MCV 78.3 L D (80.0-100.0) fL MCH 21.8 L (25.0-35.0) pg MCHC 27.9 L (31.0-37.0) g/dL RDW 20.4 H (11.5-15.5) % Plt Count 794 H (150-450) k/uL Neutrophils # (Manual) 18.22 H (1.3-7.7) k/uL Lymphocytes # (Manual) 0.79 L (1.0-4.8) k/uL Carcinoembryonic Ag 7.8 H (0.0-4.9) ng/mL Crossmatch See Detail Microbiology - Last 24 Hours (Table) 08/22/21 11:21 Gram Stain - Preliminary Other - Other Wound Culture - Preliminary 08/22/21 11:21 Anaerobic Culture - Preliminary Other - Other CT scan - abdomen: report reviewed CT scan - pelvis: report reviewed Assessment and Plan (1) Mass of colon Current Visit: Yes Status: Acute Code(s): K63.89 - OTHER SPECIFIED DISEASES OF INTESTINE SNOMED Code(s): 957681613 (2) Microcytic anemia Current Visit: Yes Status: Acute Code(s): D50.9 - IRON DEFICIENCY ANEMIA, UNSPECIFIED SNOMED Code(s): 067437454 Plan: New Diagnosis of Colon Cancer Adenocarcinoma: - Status Post Left Colectomy and small bowel resection, drainage of abdominal cyst. Increased Oxygen need today - possibly from shallow breathing post operative, CT staging and to assess for PE. - No definitive evidence of distant metastatic disease seen, await final pathology for definitive adjuvant treatment need and recommendations, discussed with patient. Physician attest: I have completed the full history and physical and agree with above dictation, dictated as a scribe.
--- NOTE | 2021-08-23 23:20 | CT ---
EXAMINATION TYPE: CT angio chest DATE OF EXAM: 08/23/2021 COMPARISON: None HISTORY: chest pain, SOB CT DLP: 542 mGycm Automated exposure control for dose reduction was used. CONTRAST: Performed with IV Contrast, patient injected with 100 mL of Isovue 370. There are 3-D post processed images. There is bilateral posterior pulmonary airspace infiltrates and atelectasis. There is no pleural effu anival. Heart size is fairly normal. There is no pericardial effusion. There are no hilar masses. There is no mediastinal adenopathy. Thoracic aorta is atheromatous. 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 The thoracic spine is intact. There is no compression fracture. There is pneumoperitoneum. There is no evidence of filling defect in the pulmonary arteries. IMPRESSION: No evidence of pulmonary embolism. Bilateral lower lobe pneumonia and atelectasis. Pneumoperitoneum. Multiple attempts were made to contact floor to discuss this result but this was not successful.
[2021-08-24] MEDS: D5-0.45% NACL WITH KCL 20MEQ/L 1,000 ML IV SCH ×3 (00:09→18:06)
[2021-08-24] MEDS: HEPARIN SODIUM,PORCINE/PF 5,000 UNIT/0.5 ML SYRINGE SQ SCH ×3 (00:10→16:39)
[2021-08-24] MEDS: METOCLOPRAMIDE 5 MG/ML 2 ML VIAL IVP SCH ×4 (00:10→17:43)
[2021-08-24] MEDS: PIPERACILLIN-TAZOBACTAM 3.375 GM in SODIUM CHLORIDE 0.9% 100 ML IVPB SCH ×3 (00:10→16:39)
[2021-08-24] MEDS: ROPIVACAINE 250 MG, HYDROMORPHONE (PF) 5 MG in SODIUM CHLORIDE 0.9% 200 ML EPIDURAL PRN (06:31)
[2021-08-24 07:16] LABS: Anisocytosis Moderate; Basophils % (A) 0 %; Eosinophils # (A) 0.1 k/uL (0-0.7); Eosinophils % (A) 1 %; HCT 29.8 % (34.0-46.0); HGB 8.3 gm/dL (11.4-16.0); Hypochromasia Marked; Lymphocytes # (A) 1.6 k/uL (1.0-4.8); Lymphocytes % (A) 10 %; MCH 21.5 pg (25.0-35.0); MCHC 27.7 g/dL (31.0-37.0); MCV 77.7 fL (80.0-100.0); Mean Platelet Volume 6.8; Microcytosis Moderate; Monocytes # (A) 0.7 k/uL (0-1.0); Monocytes % (A) 5 %; Neutrophils % (A) 83 %; Platelet Count 725 k/uL (150-450); Poikilocytosis Slight; RBC 3.84 m/uL (3.80-5.40); WBC 15.6 k/uL (3.8-10.6)
[2021-08-24] MEDS: PANTOPRAZOLE 40 MG/10 ML VIAL IVP SCH (09:03)
--- NOTE | 2021-08-24 09:38 | P.PN ---
Subjective Progress Note Date: 08/24/21 Principal diagnosis: Perforated colon mass Patient doing well today. Denies pain. White blood cell count 15.6. No flatus or bowel movement yet. Pathology from endoscopy demonstrates invasive adenocarcinoma. Objective - Vital Signs Vital signs: Vital Signs Temp 98.3 F 08/24/21 04:35 Pulse 84 08/24/21 04:35 Resp 20 08/24/21 04:35 BP 171/83 08/24/21 04:35 Pulse Ox 92 L 08/24/21 04:35 Intake & Output 08/23/21 08/24/21 08/24/21 18:59 06:59 18:59 Intake Total 0 4.583 Output Total 283 1450 Balance -283 -1450 4.583 Weight 78.7 kg Intake: Intake, IV Titration 4.583 Amount Ropivacaine 250 mg 4.583 Hydromorphone (Pf) 5 mg In Sodium Chloride 0.9% 200 ml @ Per Protocol EPIDURAL .Q0M [facility] Rx#: [id number] Oral 0 Output: Drainage 58 Left Lower Abdomen 58 Urine 225 1450 Uretheral (Krishnamurthy) 700 Other: Voiding Method Indwelling Catheter Indwelling Catheter - Exam Abdomen: Soft, nondistended, dressing clean dry, mild tenderness - Labs CBC & Chem 7: 08/24/21 06:35 08/22/21 05:38 Labs: Abnormal Lab Results - Last 24 Hours (Table) 08/23/21 08/23/21 08/24/21 Range/Units 05:46 05:46 06:35 WBC 15.6 H (3.8-10.6) k/uL Hgb 8.3 L (11.4-16.0) gm/dL Hct 29.8 L (34.0-46.0) % MCV 77.7 L (80.0-100.0) fL MCH 21.5 L (25.0-35.0) pg MCHC 27.7 L (31.0-37.0) g/dL RDW 21.0 H (11.5-15.5) % Plt Count 725 H (150-450) k/uL Neutrophils # 13.0 H (1.3-7.7) k/uL Neutrophils # (Manual) 18.22 H (1.3-7.7) k/uL Lymphocytes # (Manual) 0.79 L (1.0-4.8) k/uL Carcinoembryonic Ag 7.8 H (0.0-4.9) ng/mL Microbiology - Last 24 Hours (Table) 08/22/21 11:21 Gram Stain - Preliminary Other - Other Wound Culture - Preliminary Gram Neg Bacilli Assessment and Plan (1) Mass of colon Narrative/Plan: Overall patient improving gradually. Recheck labs tomorrow. Keep nothing by mouth for now. Await final pathology. Ambulate. Current Visit: Yes Status: Acute Code(s): K63.89 - OTHER SPECIFIED DISEASES OF INTESTINE SNOMED Code(s): 481708883
[2021-08-24 13:37] LABS: African American GFR (CKD) 113.2 (60.0-200.0); Anion Gap 10.1 mmol/L (4.00-12.00); Blood Urea Nitrogen 9.6 mg/dL (9.0-27.0); Calcium 8.3 mg/dL (8.7-10.3); Carbon Dioxide 25.9 mmol/L (21.6-31.8); Non-African American GFR(CKD) 97.7 (60.0-200.0); Potassium 4.3 mmol/L (3.5-5.5)
--- NOTE | 2021-08-24 16:57 | P.PN ---
Subjective Progress Note Date: 08/24/21 Principal diagnosis: fatigue Patient is a 62-year-old female with no known PMH, who doesn't follow with a PCP who had presented to [facility] on 08/15 with complaints of lethargy and weakness. The patient had underwent an extensive evaluation at [facility] with UA consistent with UTI, leukocytosis with WC count 19.9, hemoglobin 7.9 (no baseline available for comparison), MCV 67, troponin I 0.05, and sodium 128. CT head and CT angiogram of head and neck both unremarkable with chest x-ray also showing no acute process. EKG had revealed sinus tachycardia at [address]/T-wave changes noted as reviewed by me. The patient was admitted for presumed pyelonephritis and started on IV ceftriaxone and IV fluids. The following morning, the patient's hemoglobin dropped to 6.6 and WC count increased to 1.9. The patient was transfused 1 unit of PRBCs and sent to [facility] for further evaluation. Iron studies came back and showed severe iron deficiency anemia with an iron sat of 5%. GI was consulted for possible upper and lower endoscopy which was performed on 08/20 and demonstrated circumferential ulcerated sigmoid colonic mass with 1 cm cecal polyp and once Corea transverse descending colon polyp. She was also found to have a small hiatal hernia and esophagitis. She underwent a CT abdomen and pelvis which showed a large segment of thickened sigmoid colon with a hypodense collection anterior likely related to abscess formation. Surgery was consulted and on 08/22 patient underwent left-sided colectomy, small bowel resection, and drainage of abdominal abscess for perforated sigmoid colon mass. On 08/23 had lost control of bowels or had vaginal discharge with appear purulent- no additional episodes Patient seen and examined at bedside with family present. hurting as she is working with therapy, no chest pain, no shortness of breath, no flatus. 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 oncology UTI, POA - Rocephin X 3 day- completed 08/21/21 DVT prophylaxis: Heparin Discussed with:, Nursing, family Anticipated discharge: undetermined Anticipated discharge place: Home A total of 25 minutes was spent on the care of this complex patient more than 50% of the time was spent in counseling and care coordination. Objective - Vital Signs Vital signs: Vital Signs Temp 97.5 F L 08/24/21 12:12 Pulse 79 08/24/21 12:12 Resp 17 08/24/21 12:12 BP 176/91 08/24/21 12:12 Pulse Ox 93 L 08/24/21 12:12 Intake & Output 08/23/21 08/24/21 08/24/21 18:59 06:59 18:59 Intake Total 0 4.583 Output Total 283 1450 600 Balance -283 -1450 -595.417 Weight 78.7 kg Intake: Intake, IV Titration 4.583 Amount Ropivacaine 250 mg 4.583 Hydromorphone (Pf) 5 mg In Sodium Chloride 0.9% 200 ml @ Per Protocol EPIDURAL .Q0M PRN Rx#: [id number] Oral 0 Output: Drainage 58 Left Lower Abdomen 58 Urine 225 1450 600 Uretheral (Krishnamurthy) 700 Other: Voiding Method Indwelling Catheter Indwelling Catheter Indwelling Catheter - Labs CBC & Chem 7: 08/24/21 06:35 08/24/21 06:35 Labs: Abnormal Lab Results - Last 24 Hours (Table) 08/24/21 08/24/21 Range/Units 06:35 06:35 WBC 15.6 H (3.8-10.6) k/uL Hgb 8.3 L (11.4-16.0) gm/dL Hct 29.8 L (34.0-46.0) % MCV 77.7 L (80.0-100.0) fL MCH 21.5 L (25.0-35.0) pg MCHC 27.7 L (31.0-37.0) g/dL RDW 21.0 H (11.5-15.5) % Plt Count 725 H (150-450) k/uL Neutrophils # 13.0 H (1.3-7.7) k/uL Glucose 132 H (70-110) mg/dL Calcium 8.3 L (8.7-10.3) mg/dL Microbiology - Last 24 Hours (Table) 08/22/21 11:21 Gram Stain - Preliminary Other - Other Wound Culture - Preliminary Gram Neg Bacilli
[2021-08-24] MEDS: LACTATED RINGERS 1,000 ML IV SCH (18:07)
[2021-08-25] MEDS: METOCLOPRAMIDE 5 MG/ML 2 ML VIAL IVP SCH ×4 (00:33→18:20)
[2021-08-25] MEDS: HEPARIN SODIUM,PORCINE/PF 5,000 UNIT/0.5 ML SYRINGE SQ SCH ×3 (00:33→16:27)
[2021-08-25] MEDS: PIPERACILLIN-TAZOBACTAM 3.375 GM in SODIUM CHLORIDE 0.9% 100 ML IVPB SCH ×3 (00:34→16:27)
[2021-08-25] MEDS: D5-0.45% NACL WITH KCL 20MEQ/L 1,000 ML IV SCH ×3 (01:49→16:26)
[2021-08-25 07:08] LABS: Anisocytosis Moderate; Basophils % (A) 0 %; Eosinophils # (A) 0.2 k/uL (0-0.7); Eosinophils % (A) 2 %; HGB 8.6 gm/dL (11.4-16.0); Hypochromasia Marked; Lymphocytes # (A) 1.7 k/uL (1.0-4.8); Lymphocytes % (A) 14 %; MCH 22.3 pg (25.0-35.0); MCHC 28.7 g/dL (31.0-37.0); MCV 77.8 fL (80.0-100.0); Microcytosis Moderate; Monocytes # (A) 0.7 k/uL (0-1.0); Monocytes % (A) 5 %; Neutrophils # (A) 9.8 k/uL (1.3-7.7); Neutrophils % (A) 78 %; Platelet Count 750 k/uL (150-450); Poikilocytosis Slight; RBC 3.85 m/uL (3.80-5.40); RDW 21.4 % (11.5-15.5); WBC 12.6 k/uL (3.8-10.6)
[2021-08-25] MEDS: PANTOPRAZOLE 40 MG/10 ML VIAL IVP SCH (08:41)
[2021-08-25] MEDS ORDERED: HYDROcodone/APAP 5-325MG 1 EACH TAB PO PRN (09:47)
--- NOTE | 2021-08-25 09:48 | P.PN ---
Subjective Progress Note Date: 08/25/21 Principal diagnosis: Perforated colon mass Patient doing better today. She denies nausea or vomiting. Tolerating ice chips and popsicles. Appetite somewhat improved. White blood cell count improved at 12.6. Good urine output. Objective - Vital Signs Vital signs: Vital Signs Temp 98 F 08/25/21 04:35 Pulse 79 08/25/21 04:35 Resp 20 08/25/21 04:35 BP 177/86 08/25/21 04:35 Pulse Ox 92 L 08/25/21 04:35 Intake & Output 08/24/21 08/25/21 08/25/21 19:59 06:59 18:59 Intake Total Output Total Balance Intake: Oral Output: Urine Uretheral (Krishnamurthy) Other: Voiding Method - Exam Abdomen: Soft, nondistended, dressing clean and dry, drain serosanguineous - Labs CBC & Chem 7: 08/25/21 06:11 08/24/21 06:35 Labs: Abnormal Lab Results - Last 24 Hours (Table) 08/24/21 08/25/21 Range/Units 06:35 06:11 WBC 12.6 H (3.8-10.6) k/uL Hgb 8.6 L (11.4-16.0) gm/dL Hct 30.0 L (34.0-46.0) % MCV 77.8 L (80.0-100.0) fL MCH 22.3 L (25.0-35.0) pg MCHC 28.7 L (31.0-37.0) g/dL RDW 21.4 H (11.5-15.5) % Plt Count 750 H (150-450) k/uL Neutrophils # 9.8 H (1.3-7.7) k/uL Glucose 132 H (70-110) mg/dL Calcium 8.3 L (8.7-10.3) mg/dL Microbiology - Last 24 Hours (Table) 08/22/21 11:21 Gram Stain - Final Other - Other Wound Culture - Final Escherichia coli Escherichia coli#2 Beta Hemolytic Streptococcus F Assessment and Plan (1) Mass of colon Narrative/Plan: Overall patient seems to be doing better. Increase to clear liquid diet. Remove Krishnamurthy catheter and epidural. Ambulate. Endoscopic pathology results reviewed with patient. Current Visit: Yes Status: Acute Code(s): K63.89 - OTHER SPECIFIED DISEASES OF INTESTINE SNOMED Code(s): 157154517
[2021-08-25 11:00] LABS: African American GFR (CKD) 129.4 (60.0-200.0); BUN/Creat Ratio 15.75 Ratio (12.00-20.00); Blood Urea Nitrogen 6.3 mg/dL (9.0-27.0); Calcium 8.1 mg/dL (8.7-10.3); Magnesium 2.1 mg/dL (1.5-2.4); Non-African American GFR(CKD) 111.6 (60.0-200.0); Potassium 4.7 mmol/L (3.5-5.5)
[2021-08-25] MEDS: KETOROLAC 15 MG/ML 1 ML VIAL IVP SCH ×2 (12:44→18:20)
[2021-08-25] MEDS: LACTATED RINGERS 1,000 ML IV SCH (16:26)
--- NOTE | 2021-08-25 21:01 | P.PN ---
Subjective Progress Note Date: 08/25/21 (delayed charting seen at 0930) Principal diagnosis: fatigue Patient is a 62-year-old female with no known PMH, who doesn't follow with a PCP who had presented to [facility] on 08/15 with complaints of lethargy and weakness. The patient had underwent an extensive evaluation at [facility] with UA consistent with UTI, leukocytosis with WC count 19.9, hemoglobin 7.9 (no baseline available for comparison), MCV 67, troponin I 0.05, and sodium 128. CT head and CT angiogram of head and neck both unremarkable with chest x-ray also showing no acute process. EKG had revealed sinus tachycardia at [address]/T-wave changes noted as reviewed by me. The patient was admitted for presumed pyelonephritis and started on IV ceftriaxone and IV fluids. The following morning, the patient's hemoglobin dropped to 6.6 and WC count increased to 1.9. The patient was transfused 1 unit of PRBCs and sent to [facility] for further evaluation. Iron studies came back and showed severe iron deficiency anemia with an iron sat of 5%. GI was consulted for possible upper and lower endoscopy which was performed on 08/20 and demonstrated circumferential ulcerated sigmoid colonic mass with 1 cm cecal polyp and once Corea transverse descending colon polyp. She was also found to have a small hiatal hernia and esophagitis. She underwent a CT abdomen and pelvis which showed a large segment of thickened sigmoid colon with a hypodense collection anterior likely related to abscess formation. Surgery was consulted and on 08/22 patient underwent left-sided colectomy, small bowel resection, and drainage of abdominal abscess for perforated sigmoid colon mass. On 08/23 had loss control of bowels or had vaginal discharge with appear purulent- no additional episodes Patient seen and examined at bedside. Still no flatus, belly pain controlled, no nausea, feeling tired and weak. General: Ill appearing, no distress appears at stated age Derm: warm, dry Head: atraumatic, normocephalic, symmetric Eyes: EOMI, no lid lag, anicteric sclera Mouth: no lip lesion, mucus membranes moist Cardiovascular: S1S2 reg, no murmur, positive posterior tibial pulse bilateral, Lungs: Decreased breath sounds bilateral, no rhonchi, no rales , no accessory muscle use Abdominal: Abdominal exam deferred secondary to nausea Ext: no gross muscle atrophy, no edema, no contractures Neuro: CN II-XI grossly intact, no focal neuro deficits Psych: Alert, oriented, appropriate affect 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 abscess status post colectomy on 08/22 -Surgery recommendations, nothing by mouth, epidural in place for pain -Zosyn day #5 -Await anarobic cultures prior to changing antibiotics. -Oncology recs appreciated Severe Iron deficiency anemia Thrombocytosis - IV iron 3 doses completed - follow CBC - outpatient f/u [facility] oncology UTI, POA - Rocephin X 3 day- completed 08/21/21 DVT prophylaxis: Heparin Discussed with:, Nursing, family Anticipated discharge: undetermined Anticipated discharge place: Home A total of 25 minutes was spent on the care of this complex patient more than 50% of the time was spent in counseling and care coordination. Objective - Vital Signs Vital signs: Vital Signs Temp 98.5 F 08/25/21 13:00 Pulse 72 08/25/21 13:00 Resp 18 08/25/21 13:00 BP 190/88 08/25/21 13:00 Pulse Ox 94 L 08/25/21 13:00 Intake & Output 08/24/21 08/25/21 08/25/21 19:59 06:59 18:59 Intake Total 1600 Output Total 575 Balance 1025 Intake: Intake, IV Titration 1600 Amount D5-0.45% NaCl with KCl 1500 20Meq/l 1,000 ml @ 125 mls/hr IV .Q8H [facility] Rx#: [id number] Piperacillin-Tazobactam 3 100 .375 gm In Sodium Chloride 0.9% 100 ml @ 25 mls/hr IVPB Q8HR [facility] Rx# :[id number] Oral Output: Drainage 25 Left Lower Abdomen 25 Urine 550 Uretheral (Krishnamurthy) Other: Voiding Method Indwelling Catheter # Voids 1 - Labs CBC & Chem 7: 08/25/21 06:11 08/25/21 06:11 Labs: Abnormal Lab Results - Last 24 Hours (Table) 08/25/21 08/25/21 Range/Units 06:11 06:11 WBC 12.6 H (3.8-10.6) k/uL Hgb 8.6 L (11.4-16.0) gm/dL Hct 30.0 L (34.0-46.0) % MCV 77.8 L (80.0-100.0) fL MCH 22.3 L (25.0-35.0) pg MCHC 28.7 L (31.0-37.0) g/dL RDW 21.4 H (11.5-15.5) % Plt Count 750 H (150-450) k/uL Neutrophils # 9.8 H (1.3-7.7) k/uL Sodium 134 L (135-145) mmol/L BUN 6.3 L (9.0-27.0) mg/dL Creatinine 0.4 L (0.6-1.5) mg/dL Glucose 124 H (70-110) mg/dL Calcium 8.1 L (8.7-10.3) mg/dL Microbiology - Last 24 Hours (Table) 08/22/21 11:21 Gram Stain - Final Other - Other Wound Culture - Final Escherichia coli Escherichia coli#2 Beta Hemolytic Streptococcus F
[2021-08-25] MEDS ORDERED: ENALAPRILAT 1.25 MG/ML 1 ML VIAL IVP PRN (21:07)
[2021-08-26] MEDS: HEPARIN SODIUM,PORCINE/PF 5,000 UNIT/0.5 ML SYRINGE SQ SCH ×4 (00:18→23:16)
[2021-08-26] MEDS: METOCLOPRAMIDE 5 MG/ML 2 ML VIAL IVP SCH ×5 (00:18→23:16)
[2021-08-26] MEDS: PIPERACILLIN-TAZOBACTAM 3.375 GM in SODIUM CHLORIDE 0.9% 100 ML IVPB SCH ×4 (00:19→23:17)
[2021-08-26] MEDS: KETOROLAC 15 MG/ML 1 ML VIAL IVP SCH ×5 (00:19→23:16)
[2021-08-26] MEDS: D5-0.45% NACL WITH KCL 20MEQ/L 1,000 ML IV SCH ×3 (01:13→16:19)
[2021-08-26 06:29] LABS: Phosphorus 3.4 mg/dL (2.5-4.5)
[2021-08-26] MEDS: PANTOPRAZOLE 40 MG/10 ML VIAL IVP SCH (08:41)
--- NOTE | 2021-08-26 10:53 | P.PN ---
<Donna Chaudhry - Last Filed: 08/26/21 10:48> Subjective Progress Note Date: 08/26/21 CHIEF COMPLAINT: Perforated sigmoid colon mass HISTORY OF PRESENT ILLNESS: Patient is status post Left colectomy, small bowel resection, mobilization splenic flexure, drainage of abdominal abscess for perforated sigmoid colon mass. Patient is lying in bed comfortably. She complains of increased abdominal pain with movement. She is having flatus. Denies any nausea or vomiting. Reports a decreased appetite. Currently on clear liquids. Good urine output. Afebrile. CMP pending PHYSICAL EXAM: VITAL SIGNS: Reviewed. GENERAL: Well-developed in no acute distress. HEENT: No sclera icterus. Extraocular movements grossly intact. Moist buccal mucosa. Head is atraumatic, normocephalic. ABDOMEN: Soft. Nondistended. Incisional dressing on a small area of old drainage noted at the middle of the incision. KRUPA drain serosanguineous drainage. NEUROLOGIC: Alert and oriented. Cranial nerves II through XII grossly intact. PSYCH: Flat affect ASSESSMENT: 1. Perforated sigmoid colon mass status post Left colectomy, small bowel resection, mobilization splenic flexure, drainage of abdominal abscess PLAN: -Continue clear liquid diet -Continue IV fluid -Continue pain medication as needed -Continue antibiotics -Encouraged patient to use incentive spirometer -Encouraged patient to increase activity -Consult PT OT -GI prophylaxis Protonix and DVT prophylaxis subcu heparin Physician Oncology Technician note has been reviewed by physician. Signing provider agrees with the documented findings, assessment, and plan of care. Objective - Vital Signs Vital signs: Vital Signs Temp 99 F 08/26/21 05:00 Pulse 84 08/26/21 05:00 Resp 16 08/26/21 05:00 BP 165/83 08/26/21 05:00 Pulse Ox 95 08/26/21 05:00 Intake & Output 08/25/21 08/26/21 08/26/21 18:59 06:59 18:59 Intake Total 1600 1700 Output Total 575 1815 Balance 1025 -115 Intake: Intake, IV Titration 1600 1700 Amount D5-0.45% NaCl with KCl 1500 1500 20Meq/l 1,000 ml @ 125 mls/hr IV .Q8H [facility] Rx#: [id number] Piperacillin-Tazobactam 3 100 200 .375 gm In Sodium Chloride 0.9% 100 ml @ 25 mls/hr IVPB Q8HR [facility] Rx# :[id number] Output: Drainage 25 15 Left Lower Abdomen 25 15 Urine 550 1800 Other: Voiding Method Indwelling Catheter # Voids 1 3 - Labs CBC & Chem 7: 08/25/21 06:11 08/25/21 06:11 Labs: Abnormal Lab Results - Last 24 Hours (Table) 08/25/21 Range/Units 06:11 Sodium 134 L (135-145) mmol/L BUN 6.3 L (9.0-27.0) mg/dL Creatinine 0.4 L (0.6-1.5) mg/dL Glucose 124 H (70-110) mg/dL Calcium 8.1 L (8.7-10.3) mg/dL Microbiology - Last 24 Hours (Table) 08/22/21 11:21 Anaerobic Culture - Final Other - Other Anaerobic Gm Negative Bacilli <Yahir Bosch - Last Filed: 08/26/21 11:36> Subjective As above. Patient complaining of increased pain today. Epidural was removed yesterday. No bowel function. Denies nausea or vomiting. Continue clear liquids. Out of bed to chair this morning. Objective - Vital Signs Vital signs: Vital Signs Temp 99 F 08/26/21 05:00 Pulse 84 08/26/21 05:00 Resp 16 08/26/21 05:00 BP 165/83 08/26/21 05:00 Pulse Ox 95 08/26/21 05:00 Intake & Output 08/25/21 08/26/21 08/26/21 18:59 06:59 18:59 Intake Total 1600 1700 Output Total 575 1815 Balance 1025 -115 Intake: Intake, IV Titration 1600 1700 Amount D5-0.45% NaCl with KCl 1500 1500 20Meq/l 1,000 ml @ 125 mls/hr IV .Q8H [facility] Rx#: [id number] Piperacillin-Tazobactam 3 100 200 .375 gm In Sodium Chloride 0.9% 100 ml @ 25 mls/hr IVPB Q8HR [facility] Rx# :[id number] Output: Drainage 25 15 Left Lower Abdomen 25 15 Urine 550 1800 Other: Voiding Method Indwelling Catheter Diaper Incontinent # Voids 1 3 - Labs CBC & Chem 7: 08/25/21 06:11 08/25/21 06:11 Labs: Microbiology - Last 24 Hours (Table) 08/22/21 11:21 Anaerobic Culture - Final Other - Other Anaerobic Gm Negative Bacilli Assessment and Plan (1) Mass of colon Current Visit: Yes Status: Acute Code(s): K63.89 - OTHER SPECIFIED DISEASES OF INTESTINE SNOMED Code(s): 823528406
--- NOTE | 2021-08-26 12:09 | P.PN ---
Subjective Progress Note Date: 08/26/21 Principal diagnosis: new diagnosis of adenocarcinoma status post colectomy Tearful during follow-up, still with increased abdominal pain. She has not moved bowels but states she is passing gas. Objective - Vital Signs Vital signs: Vital Signs Temp 99 F 08/26/21 05:00 Pulse 84 08/26/21 05:00 Resp 16 08/26/21 05:00 BP 165/83 08/26/21 05:00 Pulse Ox 95 08/26/21 05:00 Intake & Output 08/25/21 08/26/21 08/26/21 18:59 06:59 18:59 Intake Total 1600 1700 Output Total 575 1815 Balance 1025 -115 Intake: Intake, IV Titration 1600 1700 Amount D5-0.45% NaCl with KCl 1500 1500 20Meq/l 1,000 ml @ 125 mls/hr IV .Q8H [facility] Rx#: [id number] Piperacillin-Tazobactam 3 100 200 .375 gm In Sodium Chloride 0.9% 100 ml @ 25 mls/hr IVPB Q8HR [facility] Rx# :[id number] Output: Drainage 25 15 Left Lower Abdomen 25 15 Urine 550 1800 Other: Voiding Method Indwelling Catheter Diaper Incontinent # Voids 1 3 - Exam Alert and oriented Tearful Neck: Supple Lungs: Diminished Abd: Binder and tender to slight touch Ext: Mild edema Heart RRR - Labs CBC & Chem 7: 08/26/21 05:30 08/25/21 06:11 Labs: Microbiology - Last 24 Hours (Table) 08/22/21 11:21 Anaerobic Culture - Final Other - Other Anaerobic Gm Negative Bacilli Assessment and Plan (1) Mass of colon Current Visit: Yes Status: Acute Code(s): K63.89 - OTHER SPECIFIED DISEASES OF INTESTINE SNOMED Code(s): 562878243 (2) Microcytic anemia Current Visit: Yes Status: Acute Code(s): D50.9 - IRON DEFICIENCY ANEMIA, UNSPECIFIED SNOMED Code(s): 265657160 Plan: New Diagnosis of Colon Cancer Adenocarcinoma: - Status Post Left Colectomy and small bowel resection, drainage of abdominal cyst. Microcytic Anemia: - Component of Iron Deficiency - Hold off on IV Iron infusions with Bacteremia, may give after resolution of infection CTA: No evidence of PE, question of pneumoperitoneum on CTA, Surgery is following and no new intervention. With perforated mass adjuvant chemotherapy will be most likely recommended 4-5 weeks after colectomy. Pathology from definitive surgery is still pending at this time Repeat abdominal imaging if continues with increased pain, no BM.
[2021-08-26 12:50] LABS: Anisocytosis Moderate; Basophils # (A) 0.1 k/uL (0-0.2); Basophils % (A) 1 %; Eosinophils # (A) 0.2 k/uL (0-0.7); Eosinophils % (A) 2 %; HCT 32.2 % (34.0-46.0); HGB 9.4 gm/dL (11.4-16.0); Hypochromasia Marked; Lymphocytes # (A) 1.4 k/uL (1.0-4.8); Lymphocytes % (A) 11 %; MCH 22.9 pg (25.0-35.0); MCHC 29.2 g/dL (31.0-37.0); MCV 78.3 fL (80.0-100.0); Mean Platelet Volume 8.4; Microcytosis Moderate; Monocytes # (A) 0.7 k/uL (0-1.0); Monocytes % (A) 5 %; Neutrophils % (A) 81 %; Platelet Count 714 k/uL (150-450); Poikilocytosis Slight; RBC 4.11 m/uL (3.80-5.40); RDW 21.7 % (11.5-15.5); WBC 13.6 k/uL (3.8-10.6)
[2021-08-26 14:35] LABS: Folate, Serum 19.9 ng/mL (4.40-31.00)
--- NOTE | 2021-08-26 14:38 | P.PN ---
Subjective Progress Note Date: 08/26/21 Principal diagnosis: fatigue Patient is a 62-year-old female with no known PMH, who doesn't follow with a PCP who had presented to [facility] on 08/15 with complaints of lethargy and weakness. The patient had underwent an extensive evaluation at [facility] with UA consistent with UTI, leukocytosis with WC count 19.9, hemoglobin 7.9 (no baseline available for comparison), MCV 67, troponin I 0.05, and sodium 128. CT head and CT angiogram of head and neck both unremarkable with chest x-ray also showing no acute process. EKG had revealed sinus tachycardia at [address]/T-wave changes noted as reviewed by me. The patient was admitted for presumed pyelonephritis and started on IV ceftriaxone and IV fluids. The following morning, the patient's hemoglobin dropped to 6.6 and WC count increased to 1.9. The patient was transfused 1 unit of PRBCs and sent to [facility] for further evaluation. Iron studies came back and showed severe iron deficiency anemia with an iron sat of 5%. GI was consulted for possible upper and lower endoscopy which was performed on 08/20 and demonstrated circumferential ulcerated sigmoid colonic mass with 1 cm cecal polyp and once Corea transverse descending colon polyp. She was also found to have a small hiatal hernia and esophagitis. She underwent a CT abdomen and pelvis which showed a large segment of thickened sigmoid colon with a hypodense collection anterior likely related to abscess formation. Surgery was consulted and on 08/22 patient underwent left-sided colectomy, small bowel resection, and drainage of abdominal abscess for perforated sigmoid colon mass. On 08/23 had loss control of bowels or had vaginal discharge with appear purulent- no additional episodes Patient seen and examined at bedside. + Flatus, no BM, pain well controlled, tolerated clear well. General: non toxic, no distress appears at stated age Derm: warm, dry Head: atraumatic, normocephalic, symmetric Eyes: EOMI, no lid lag, anicteric sclera Mouth: no lip lesion, mucus membranes moist Cardiovascular: S1S2 reg, no murmur, positive posterior tibial pulse bilateral, Lungs: Decreased breath sounds bilateral, no rhonchi, no rales , no accessory muscle use Abdominal: Abdominal exam deferred secondary to nausea Ext: no gross muscle atrophy, no edema, no contractures Neuro: CN II-XI grossly intact, no focal neuro deficits Psych: Alert, oriented, flat affect 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 abscess status post colectomy on 08/22 -Surgery recommendations, nothing by mouth, epidural in place for pain -Zosyn day #5 -Await anarobic cultures prior to changing antibiotics. -Oncology recs appreciated Severe Iron deficiency anemia Thrombocytosis - IV iron 3 doses completed - follow CBC - outpatient f/u [facility] oncology UTI, POA - Rocephin X 3 day- completed 08/21/21 Weakness and Debility - pt/ot DVT prophylaxis: Heparin Discussed with:, Nursing Anticipated discharge: undetermined Anticipated discharge place: Home A total of 25 minutes was spent on the care of this complex patient more than 50% of the time was spent in counseling and care coordination. Objective - Vital Signs Vital signs: Vital Signs Temp 98.1 F 08/26/21 13:00 Pulse 99 08/26/21 13:00 Resp 18 08/26/21 13:00 BP 172/98 08/26/21 13:00 Pulse Ox 95 08/26/21 13:00 Intake & Output 08/25/21 08/26/21 08/26/21 18:59 06:59 18:59 Intake Total 1600 1700 Output Total 575 1815 Balance 1025 -115 Weight 78.7 kg Intake: Intake, IV Titration 1600 1700 Amount D5-0.45% NaCl with KCl 1500 1500 20Meq/l 1,000 ml @ 125 mls/hr IV .Q8H [facility] Rx#: [id number] Piperacillin-Tazobactam 3 100 200 .375 gm In Sodium Chloride 0.9% 100 ml @ 25 mls/hr IVPB Q8HR [facility] Rx# :[id number] Output: Drainage 25 15 Left Lower Abdomen 25 15 Urine 550 1800 Other: Voiding Method Indwelling Catheter Diaper Incontinent # Voids 1 3 - Labs CBC & Chem 7: 08/26/21 05:30 08/25/21 06:11 Labs: Abnormal Lab Results - Last 24 Hours (Table) 08/26/21 Range/Units 05:30 WBC 13.6 H (3.8-10.6) k/uL Hgb 9.4 L (11.4-16.0) gm/dL Hct 32.2 L (34.0-46.0) % MCV 78.3 L (80.0-100.0) fL MCH 22.9 L (25.0-35.0) pg MCHC 29.2 L (31.0-37.0) g/dL RDW 21.7 H (11.5-15.5) % Plt Count 714 H (150-450) k/uL Neutrophils # 11.0 H (1.3-7.7) k/uL Microbiology - Last 24 Hours (Table) 08/22/21 11:21 Anaerobic Culture - Final Other - Other Anaerobic Gm Negative Bacilli
[2021-08-26 15:17] LABS: African American GFR (CKD) 69.9 (60.0-200.0); Albumin 2.8 g/dL (3.8-4.9); Anion Gap 20.2 mmol/L (4.00-12.00); BUN/Creat Ratio 8.5 Ratio (12.00-20.00); Blood Urea Nitrogen 8.5 mg/dL (9.0-27.0); Calcium 10.7 mg/dL (8.7-10.3); Carbon Dioxide 18.8 mmol/L (21.6-31.8); Globulin 2.8 g/dL (1.6-3.3); Non-African American GFR(CKD) 60.3 (60.0-200.0); Potassium 5.1 mmol/L (3.5-5.5); Total Bilirubin 0.4 mg/dL (0.30-1.20); Total Protein 5.6 g/dL (6.2-8.2)
[2021-08-26] MEDS: LACTATED RINGERS 1,000 ML IV SCH (15:27)
[2021-08-26] MEDS ORDERED: hydrALAZINE HCL 25 MG TAB PO STA (20:21)
[2021-08-27] MEDS: D5-0.45% NACL WITH KCL 20MEQ/L 1,000 ML IV SCH ×2 (03:00→14:17)
[2021-08-27] MEDS: METOCLOPRAMIDE 5 MG/ML 2 ML VIAL IVP SCH ×4 (05:43→23:51)
[2021-08-27 05:46] LABS: Anisocytosis Moderate; Basophils # (A) 0.1 k/uL (0-0.2); Basophils % (A) 0 %; Eosinophils # (A) 0.3 k/uL (0-0.7); Eosinophils % (A) 2 %; HCT 34.3 % (34.0-46.0); HGB 10.1 gm/dL (11.4-16.0); Hypochromasia Marked; Lymphocytes # (A) 2.1 k/uL (1.0-4.8); Lymphocytes % (A) 16 %; MCH 22.4 pg (25.0-35.0); MCHC 29.5 g/dL (31.0-37.0); MCV 75.8 fL (80.0-100.0); Microcytosis Moderate; Monocytes # (A) 0.7 k/uL (0-1.0); Monocytes % (A) 5 %; Neutrophils # (A) 9.7 k/uL (1.3-7.7); Neutrophils % (A) 75 %; Platelet Count 864 k/uL (150-450); Poikilocytosis Slight; RBC 4.52 m/uL (3.80-5.40); RDW 22.1 % (11.5-15.5); WBC 12.9 k/uL (3.8-10.6)
[2021-08-27] MEDS: KETOROLAC 15 MG/ML 1 ML VIAL IVP SCH ×4 (06:11→23:51)
[2021-08-27] MEDS: HEPARIN SODIUM,PORCINE/PF 5,000 UNIT/0.5 ML SYRINGE SQ SCH ×3 (09:05→23:50)
[2021-08-27] MEDS: PANTOPRAZOLE 40 MG/10 ML VIAL IVP SCH (09:05)
[2021-08-27] MEDS: PIPERACILLIN-TAZOBACTAM 3.375 GM in SODIUM CHLORIDE 0.9% 100 ML IVPB SCH ×3 (09:06→23:50)
[2021-08-27 10:59] LABS: African American GFR (CKD) >90 (>60 ml/min/1.73 sqM); Anion Gap 8 mmol/L; Blood Urea Nitrogen 3 mg/dL (7-17); Carbon Dioxide 24 mmol/L (22-30); Chloride 103 mmol/L (98-107); Glucose 146 mg/dL (74-99); Magnesium 2.1 mg/dL (1.6-2.3); Non-African American GFR(CKD) >90 (>60 ml/min/1.73 sqM); Sodium 135 mmol/L (137-145)
--- NOTE | 2021-08-27 11:41 | P.PN ---
<Donna Chaudhry - Last Filed: 08/27/21 11:34> Subjective Progress Note Date: 08/27/21 CHIEF COMPLAINT: Perforated sigmoid colon mass HISTORY OF PRESENT ILLNESS: Patient is status post Left colectomy, small bowel resection, mobilization splenic flexure, drainage of abdominal abscess for perforated sigmoid colon mass. Patient is lying in bedside chair. She reports that her pain is better today. She is having bowel movements and flatus. Denies any nausea or vomiting. She is scheduled to work with physical therapy today. Afebrile. BP elevated. WBC is down from 13.6-12.9 hemoglobin 10.1 platelet 864 potassium 5.0 creatinine 0.50 magnesium 2.1 PHYSICAL EXAM: VITAL SIGNS: Reviewed. GENERAL: Well-developed in no acute distress. HEENT: No sclera icterus. Extraocular movements grossly intact. Moist buccal mucosa. Head is atraumatic, normocephalic. ABDOMEN: Soft. Nondistended. Incisional dressing on a small area of old drainage noted at the middle of the incision. KRUPA drain serosanguineous drainage . NEUROLOGIC: Alert and oriented. Cranial nerves II through XII grossly intact. PSYCH: Flat affect ASSESSMENT: 1. Perforated sigmoid colon mass status post Left colectomy, small bowel resection, mobilization splenic flexure, drainage of abdominal abscess PLAN: -Advance diet to full liquids -Decreased IV fluids 75 mL per hour -dressing changed today -Continue pain medication as needed -Continue antibiotics -Encouraged patient to use incentive spirometer -Encouraged patient to increase activity -Consult PT OT -GI prophylaxis Protonix and DVT prophylaxis subcu heparin Physician [employer] note has been reviewed by physician. Signing provider agrees with the documented findings, assessment, and plan of care. Objective - Vital Signs Vital signs: Vital Signs Temp 98.6 F 08/27/21 05:00 Pulse 84 08/27/21 08:00 Resp 17 08/27/21 08:00 BP 141/87 08/27/21 05:00 Pulse Ox 95 08/27/21 05:00 Intake & Output 08/26/21 08/27/21 08/27/21 18:59 06:59 18:59 Intake Total 1700 800 240 Output Total 1700 910 Balance 0 -110 240 Weight 78.7 kg Intake: Intake, IV Titration 1700 800 Amount D5-0.45% NaCl with KCl 1500 800 20Meq/l 1,000 ml @ 125 mls/hr IV .Q8H [facility] Rx#: [id number] Piperacillin-Tazobactam 3 200 .375 gm In Sodium Chloride 0.9% 100 ml @ 25 mls/hr IVPB Q8HR [facility] Rx# :[id number] Oral 240 Output: Drainage 10 Left Lower Abdomen 10 Urine 1700 900 Other: Voiding Method Diaper Diaper Diaper Incontinent External Catheter External Catheter # Bowel Movements 0 2 - Labs CBC & Chem 7: 08/27/21 04:49 08/27/21 04:49 Labs: Abnormal Lab Results - Last 24 Hours (Table) 08/23/21 08/23/21 08/26/21 Range/Units 05:46 05:46 05:30 WBC 13.6 H (3.8-10.6) k/uL Hgb 9.4 L (11.4-16.0) gm/dL Hct 32.2 L (34.0-46.0) % MCV 78.3 L (80.0-100.0) fL MCH 22.9 L (25.0-35.0) pg MCHC 29.2 L (31.0-37.0) g/dL RDW 21.7 H (11.5-15.5) % Plt Count 714 H (150-450) k/uL Neutrophils # 11.0 H (1.3-7.7) k/uL Sodium (137-145) mmol/L Carbon Dioxide 18.8 L (21.6-31.8) mmol/L Anion Gap 20.20 H (4.00-12.00) mmol/L BUN 8.5 L (9.0-27.0) mg/dL Creatinine (0.52-1.04) mg/dL BUN/Creatinine Ratio 8.50 L (12.00-20.00) Ratio Glucose 148 H (70-110) mg/dL Calcium 10.7 H (8.7-10.3) mg/dL AST 11 L (13-35) U/L Alkaline Phosphatase 284 H (41-126) U/L Total Protein 5.6 L (6.2-8.2) g/dL Albumin 2.8 L (3.8-4.9) g/dL Albumin/Globulin Ratio 1.00 L (1.60-3.17) g/dL Vitamin B12 1329.0 H (200.0-944.0) pg/mL Methylmalonic Acid 0.51 H (<0.40) umol/L 08/27/21 08/27/21 Range/Units 04:49 04:49 WBC 12.9 H (3.8-10.6) k/uL Hgb 10.1 L (11.4-16.0) gm/dL Hct (34.0-46.0) % MCV 75.8 L (80.0-100.0) fL MCH 22.4 L (25.0-35.0) pg MCHC 29.5 L (31.0-37.0) g/dL RDW 22.1 H (11.5-15.5) % Plt Count 864 H (150-450) k/uL Neutrophils # 9.7 H (1.3-7.7) k/uL Sodium 135 L (137-145) mmol/L Carbon Dioxide (21.6-31.8) mmol/L Anion Gap (4.00-12.00) mmol/L BUN 3 L (9.0-27.0) mg/dL Creatinine 0.50 L (0.52-1.04) mg/dL BUN/Creatinine Ratio (12.00-20.00) Ratio Glucose 146 H (70-110) mg/dL Calcium (8.7-10.3) mg/dL AST (13-35) U/L Alkaline Phosphatase (41-126) U/L Total Protein (6.2-8.2) g/dL Albumin (3.8-4.9) g/dL Albumin/Globulin Ratio (1.60-3.17) g/dL Vitamin B12 (200.0-944.0) pg/mL Methylmalonic Acid (<0.40) umol/L <Yahir Bosch - Last Filed: 08/27/21 16:26> Subjective As above. Patient remains tired. Seems in better spirits. She did have bowel movements. Continue advancing diet as tolerated at this point. Continue ambulation. Oncology evaluation noted. Objective - Vital Signs Vital signs: Vital Signs Temp 98.0 F 08/27/21 12:06 Pulse 106 H 08/27/21 12:06 Resp 15 08/27/21 12:06 BP 130/88 08/27/21 12:06 Pulse Ox 95 08/27/21 12:06 Intake & Output 08/26/21 08/27/21 08/27/21 18:59 06:59 18:59 Intake Total 1700 800 240 Output Total 1700 910 Balance 0 -110 240 Weight 78.7 kg Intake: Intake, IV Titration 1700 800 Amount D5-0.45% NaCl with KCl 1500 800 20Meq/l 1,000 ml @ 125 mls/hr IV .Q8H [facility] Rx#: [id number] Piperacillin-Tazobactam 3 200 .375 gm In Sodium Chloride 0.9% 100 ml @ 25 mls/hr IVPB Q8HR [facility] Rx# :[id number] Oral 240 Output: Drainage 10 Left Lower Abdomen 10 Urine 1700 900 Other: Voiding Method Diaper Diaper Diaper Incontinent External Catheter External Catheter # Bowel Movements 0 2 - Labs CBC & Chem 7: 08/27/21 04:49 08/27/21 04:49 Labs: Abnormal Lab Results - Last 24 Hours (Table) 08/23/21 08/27/21 08/27/21 Range/Units 05:46 04:49 04:49 WBC 12.9 H (3.8-10.6) k/uL Hgb 10.1 L (11.4-16.0) gm/dL MCV 75.8 L (80.0-100.0) fL MCH 22.4 L (25.0-35.0) pg MCHC 29.5 L (31.0-37.0) g/dL RDW 22.1 H (11.5-15.5) % Plt Count 864 H (150-450) k/uL Neutrophils # 9.7 H (1.3-7.7) k/uL Sodium 135 L (137-145) mmol/L BUN 3 L (7-17) mg/dL Creatinine 0.50 L (0.52-1.04) mg/dL Glucose 146 H (74-99) mg/dL Methylmalonic Acid 0.51 H (<0.40) umol/L Assessment and Plan (1) Mass of colon Current Visit: Yes Status: Acute Code(s): K63.89 - OTHER SPECIFIED DISEASES OF INTESTINE SNOMED Code(s): 496405293
[2021-08-27] MEDS: LACTATED RINGERS 1,000 ML IV SCH (16:10)
--- NOTE | 2021-08-27 18:10 | P.PN ---
Subjective Progress Note Date: 08/27/21 (delayed charting seen at 1145) Principal diagnosis: fatigue Patient is a 62-year-old female with no known PMH, who doesn't follow with a PCP who had presented to [facility] on 08/15 with complaints of lethargy and weakness. The patient had underwent an extensive evaluation at [facility] with UA consistent with UTI, leukocytosis with WC count 19.9, hemoglobin 7.9 (no baseline available for comparison), MCV 67, troponin I 0.05, and sodium 128. CT head and CT angiogram of head and neck both unremarkable with chest x-ray also showing no acute process. EKG had revealed sinus tachycardia at [address]/T-wave changes noted as reviewed by me. The patient was admitted for presumed pyelonephritis and started on IV ceftriaxone and IV fluids. The following morning, the patient's hemoglobin dropped to 6.6 and WC count increased to 1.9. The patient was transfused 1 unit of PRBCs and sent to [facility] for further evaluation. Iron studies came back and showed severe iron deficiency anemia with an iron sat of 5%. GI was consulted for possible upper and lower endoscopy which was performed on 08/20 and demonstrated circumferential ulcerated sigmoid colonic mass with 1 cm cecal polyp and once Corea transverse descending colon polyp. She was also found to have a small hiatal hernia and esophagitis. She underwent a CT abdomen and pelvis which showed a large segment of thickened sigmoid colon with a hypodense collection anterior likely related to abscess formation. Surgery was consulted and on 08/22 patient underwent left-sided colectomy, small bowel resection, and drainage of abdominal abscess for perforated sigmoid colon mass. She has been significantly weak after surgery and requiring 2 people for assistance. On 08/23 had loss control of bowels or had vaginal discharge with appear purulent- no additional episodes Patient seen and examined at bedside. + BM tolerating clear liquid diet, pain well controlled Daughter at bedside. All questions answered. 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 Severe Iron deficiency anemia Thrombocytosis - IV iron 3 doses completed - follow CBC - outpatient f/u [facility] oncology UTI, POA - Rocephin X 3 day- completed 08/21/21 Weakness and Debility - pt/ot DVT prophylaxis: Heparin Discussed with:, Nursing Anticipated discharge: undetermined Anticipated discharge place: Home A total of 25 minutes was spent on the care of this complex patient more than 50% of the time was spent in counseling and care coordination. Objective - Vital Signs Vital signs: Vital Signs Temp 98.0 F 08/27/21 12:06 Pulse 106 H 08/27/21 12:06 Resp 15 08/27/21 12:06 BP 130/88 08/27/21 12:06 Pulse Ox 95 08/27/21 12:06 Intake & Output 08/26/21 08/27/21 08/27/21 18:59 06:59 18:59 Intake Total 1700 800 480 Output Total 1700 910 Balance 0 -110 480 Weight 78.7 kg Intake: Intake, IV Titration 1700 800 Amount D5-0.45% NaCl with KCl 1500 800 20Meq/l 1,000 ml @ 75 mls /hr IV .[id number] [facility] Rx#: [id number] Piperacillin-Tazobactam 3 200 .375 gm In Sodium Chloride 0.9% 100 ml @ 25 mls/hr IVPB Q8HR [facility] Rx# :[id number] Oral 480 Output: Drainage 10 Left Lower Abdomen 10 Urine 1700 900 Other: Voiding Method Diaper Diaper Diaper Incontinent External Catheter External Catheter # Voids 2 # Bowel Movements 0 1 - Labs CBC & Chem 7: 08/27/21 04:49 08/27/21 04:49 Labs: Abnormal Lab Results - Last 24 Hours (Table) 08/23/21 08/27/21 08/27/21 Range/Units 05:46 04:49 04:49 WBC 12.9 H (3.8-10.6) k/uL Hgb 10.1 L (11.4-16.0) gm/dL MCV 75.8 L (80.0-100.0) fL MCH 22.4 L (25.0-35.0) pg MCHC 29.5 L (31.0-37.0) g/dL RDW 22.1 H (11.5-15.5) % Plt Count 864 H (150-450) k/uL Neutrophils # 9.7 H (1.3-7.7) k/uL Sodium 135 L (137-145) mmol/L BUN 3 L (7-17) mg/dL Creatinine 0.50 L (0.52-1.04) mg/dL Glucose 146 H (74-99) mg/dL Methylmalonic Acid 0.51 H (<0.40) umol/L
[2021-08-28] MEDS: METOCLOPRAMIDE 5 MG/ML 2 ML VIAL IVP SCH ×3 (05:43→16:31)
[2021-08-28] MEDS: KETOROLAC 15 MG/ML 1 ML VIAL IVP SCH ×3 (05:43→16:31)
[2021-08-28 06:20] LABS: Anisocytosis Moderate; HGB 9.7 gm/dL (11.4-16.0); Hypochromasia Marked; MCH 22.7 pg (25.0-35.0); MCHC 29.2 g/dL (31.0-37.0); MCV 77.7 fL (80.0-100.0); Mean Platelet Volume 6.8; Microcytosis Moderate; Platelet Count 758 k/uL (150-450); Poikilocytosis Slight; RBC 4.25 m/uL (3.80-5.40); RDW 22.5 % (11.5-15.5); WBC 10.4 k/uL (3.8-10.6)
[2021-08-28] MEDS: PANTOPRAZOLE 40 MG/10 ML VIAL IVP SCH (09:30)
[2021-08-28] MEDS: PIPERACILLIN-TAZOBACTAM 3.375 GM in SODIUM CHLORIDE 0.9% 100 ML IVPB SCH ×2 (09:31→16:33)
[2021-08-28] MEDS: HEPARIN SODIUM,PORCINE/PF 5,000 UNIT/0.5 ML SYRINGE SQ SCH ×2 (09:31→15:44)
--- NOTE | 2021-08-28 10:58 | P.PN ---
<Tamie Kellogg - Last Filed: 08/28/21 10:50> Subjective Progress Note Date: 08/28/21 CHIEF COMPLAINT: Perforated sigmoid colon mass HISTORY OF PRESENT ILLNESS: Patient is status post Left colectomy, small bowel resection, mobilization splenic flexure, drainage of abdominal abscess for perforated sigmoid colon mass. Patient is lying in bedside chair. She reports that her pain is better today. She learned having a bowel movement yesterday as well as today. She is tolerating her full liquid diet. Denies any nausea or vomiting. She had a low-grade fever of 99.3 this morning, repeat was 98.7. She continues to have some elevated blood pressures last one 161/90.WBC trending down today 10.4 hemoglobin stable at 9.7, basic metabolic panel pending at this time. PHYSICAL EXAM: VITAL SIGNS: Reviewed. GENERAL: Well-developed in no acute distress. HEENT: No sclera icterus. Extraocular movements grossly intact. Moist buccal mucosa. Head is atraumatic, normocephalic. ABDOMEN: Soft. Nondistended. Incisional dressing on a small area of old drainage noted at the lower part of the incision. Julian followed approximated. KRUPA drain serosanguineous drainage. NEUROLOGIC: Alert and oriented. Cranial nerves II through XII grossly intact. PSYCH: Flat affect ASSESSMENT: 1. Perforated sigmoid colon mass status post Left colectomy, small bowel resection, mobilization splenic flexure, drainage of abdominal abscess PLAN: -Advance diet to low fiber -IV fluids decreased to KVO -Coverlet dressing change daily, as needed -Continue pain medication as needed -Continue antibiotics -Encouraged patient to use incentive spirometer -Encouraged patient to increase activity -Consult PT OT -GI prophylaxis Protonix and DVT prophylaxis subcu heparin The impression and plan of care has been dictated as directed. Dr. Kodi Bosch I performed a history and examination of this patient, discussed the same with the dictator. I agree with the dictator's note, documented as a scribe. Any additional findings or plans will be noted. Objective - Vital Signs Vital signs: Vital Signs Temp 99.3 F 08/28/21 04:40 Pulse 93 08/28/21 04:40 Resp 16 08/28/21 04:40 BP 161/90 08/28/21 04:40 Pulse Ox 90 L 08/28/21 04:40 Intake & Output 08/27/21 08/28/21 08/28/21 18:59 06:59 18:59 Intake Total 480 Output Total 1100 500 875 Balance -246 -851 -658 Intake: Oral 480 Output: Urine 1100 500 875 Other: Voiding Method Diaper External Catheter External Catheter # Voids 2 # Bowel Movements 2 1 - Labs CBC & Chem 7: 08/28/21 05:06 08/27/21 04:49 Labs: Abnormal Lab Results - Last 24 Hours (Table) 08/27/21 08/28/21 Range/Units 04:49 05:06 Hgb 9.7 L (11.4-16.0) gm/dL Hct 33.0 L (34.0-46.0) % MCV 77.7 L (80.0-100.0) fL MCH 22.7 L (25.0-35.0) pg MCHC 29.2 L (31.0-37.0) g/dL RDW 22.5 H (11.5-15.5) % Plt Count 758 H (150-450) k/uL Sodium 135 L (137-145) mmol/L BUN 3 L (7-17) mg/dL Creatinine 0.50 L (0.52-1.04) mg/dL Glucose 146 H (74-99) mg/dL Assessment and Plan (1) Iron deficiency anemia Current Visit: Yes Status: Acute Code(s): D50.9 - IRON DEFICIENCY ANEMIA, UNSPECIFIED SNOMED Code(s): 65759132 (2) Microcytic anemia Current Visit: Yes Status: Acute Code(s): D50.9 - IRON DEFICIENCY ANEMIA, UNSPECIFIED SNOMED Code(s): 312786161 (3) Urinary tract infection Current Visit: Yes Status: Acute Code(s): N39.0 - URINARY TRACT INFECTION, SITE NOT SPECIFIED SNOMED Code(s): 35224982 (4) Mass of colon Current Visit: Yes Status: Acute Code(s): K63.89 - OTHER SPECIFIED DISEASES OF INTESTINE SNOMED Code(s): 353801871 <Yahir Bosch - Last Filed: 08/28/21 12:09> Subjective As above. Patient has had 2 bowel moments. Still feels weak. Overall feels better. Final pathology results reviewed with patient. Continue increasing activity. Hopefully discharge tomorrow or Thursday to home with home physical therapy. Objective - Vital Signs Vital signs: Vital Signs Temp 98.7 F 08/28/21 10:57 Pulse 88 08/28/21 10:57 Resp 16 08/28/21 04:40 BP 150/86 08/28/21 10:57 Pulse Ox 90 L 08/28/21 04:40 Intake & Output 08/27/21 08/28/21 08/28/21 18:59 06:59 18:59 Intake Total 480 Output Total 1100 500 875 Balance -061 -426 -655 Intake: Oral 480 Output: Urine 1100 500 875 Other: Voiding Method Diaper External Catheter External Catheter # Voids 2 # Bowel Movements 2 1 - Labs CBC & Chem 7: 08/28/21 05:06 08/27/21 04:49 Labs: Abnormal Lab Results - Last 24 Hours (Table) 08/28/21 Range/Units 05:06 Hgb 9.7 L (11.4-16.0) gm/dL Hct 33.0 L (34.0-46.0) % MCV 77.7 L (80.0-100.0) fL MCH 22.7 L (25.0-35.0) pg MCHC 29.2 L (31.0-37.0) g/dL RDW 22.5 H (11.5-15.5) % Plt Count 758 H (150-450) k/uL Assessment and Plan (1) Mass of colon Current Visit: Yes Status: Acute Code(s): K63.89 - OTHER SPECIFIED DISEASES OF INTESTINE SNOMED Code(s): 756780151
[2021-08-28 12:43] LABS: African American GFR (CKD) 120.2 (60.0-200.0); Albumin 2.6 g/dL (3.8-4.9); Albumin/Globulin Ratio 0.93 (1.60-3.17); Anion Gap 11.9 mmol/L (4.00-12.00); BUN/Creat Ratio 11.2 Ratio (12.00-20.00); Blood Urea Nitrogen 5.6 mg/dL (9.0-27.0); Carbon Dioxide 23.1 mmol/L (21.6-31.8); Globulin 2.8 g/dL (1.6-3.3); Non-African American GFR(CKD) 103.7 (60.0-200.0); Potassium 4.5 mmol/L (3.5-5.5); Total Bilirubin 0.3 mg/dL (0.30-1.20); Total Protein 5.4 g/dL (6.2-8.2)
--- NOTE | 2021-08-28 16:30 | P.PN ---
Subjective Patient was seen and evaluated this morning. She is doing fairly well. She is passing gas and having bowel movement. Her daughter at bedside. Objective - Vital Signs Vital signs: Vital Signs Temp 97.5 F L 08/28/21 12:11 Pulse 100 08/28/21 12:11 Resp 18 08/28/21 12:11 BP 158/92 08/28/21 12:11 Pulse Ox 94 L 08/28/21 12:11 Intake & Output 08/27/21 08/28/21 08/28/21 18:59 06:59 18:59 Intake Total 480 320 Output Total 7581 516 3473 Balance -245 -167 -3440 Weight 78.7 kg Intake: Oral 480 320 Output: Drainage 10 Left Lower Abdomen 10 Urine 1153 530 5728 Other: Voiding Method Diaper External Catheter External Catheter External Catheter # Voids 2 # Bowel Movements 2 1 1 - Exam General: The patient is awake and alert, in no distress Eye: there is normal conjunctiva bilaterally. Neck: The neck is supple, there is no JVD. Cardiovascular: Normal S1-S2, no S3-S4, no murmurs. Respiratory: Lungs clear to auscultation bilaterally Gastrointestinal: Abdomen is nontender. There is an abdominal binder. Musculoskeletal: There is no pedal edema. Neurological:. Speech is normal. Skin: Skin is warm and dry - Labs CBC & Chem 7: 08/28/21 05:06 08/28/21 05:06 Labs: Abnormal Lab Results - Last 24 Hours (Table) 08/28/21 08/28/21 Range/Units 05:06 05:06 Hgb 9.7 L (11.4-16.0) gm/dL Hct 33.0 L (34.0-46.0) % MCV 77.7 L (80.0-100.0) fL MCH 22.7 L (25.0-35.0) pg MCHC 29.2 L (31.0-37.0) g/dL RDW 22.5 H (11.5-15.5) % Plt Count 758 H (150-450) k/uL BUN 5.6 L (9.0-27.0) mg/dL Creatinine 0.5 L (0.6-1.5) mg/dL BUN/Creatinine Ratio 11.20 L (12.00-20.00) Ratio Alkaline Phosphatase 473 H (41-126) U/L Total Protein 5.4 L (6.2-8.2) g/dL Albumin 2.6 L (3.8-4.9) g/dL Albumin/Globulin Ratio 0.93 L (1.60-3.17) g/dL Assessment and Plan Assessment: Patient is a 62-year-old female with no known PMH, who doesn't follow with a PCP who had presented to [facility] on 08/15 with complaints of lethargy and weakness. The patient had underwent an extensive evaluation at [facility] with UA consistent with UTI, leukocytosis with WC count 19.9, hemoglobin 7.9 (no baseline available for comparison), MCV 67, troponin I 0.05, and sodium 128. CT head and CT angiogram of head and neck both unremarkable with chest x-ray also showing no acute process. EKG had revealed sinus tachycardia at [address]/T-wave changes noted as reviewed by me. The patient was admitted for presumed pyelonephritis and started on IV ceftriaxone and IV fluids. The following morning, the patient's hemoglobin dropped to 6.6 and WC count increased to 1.9. The patient was transfused 1 unit of PRBCs and sent to [facility] for further evaluation. Iron studies came back and showed severe iron deficiency anemia with an iron sat of 5%. GI was consulted for possible upper and lower endoscopy which was performed on 08/20 and demonstrated circumferential ulcerated sigmoid colonic mass with 1 cm cecal polyp and once Corea transverse descending colon polyp. She was also found to have a small hiatal hernia and esophagitis. She underwent a CT abdomen and pelvis which showed a large segment of thickened sigmoid colon with a hypodense collection anterior likely related to abscess formation. Surgery was consulted and on 08/22 patient underwent left-sided colectomy, small bowel resection, and drainage of abdominal abscess for perforated sigmoid colon mass. She has been significantly weak after surgery and requiring 2 people for assistance. 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 abscess status post colectomy on 08/22 -Surgery recommendations -Zosyn day #7 -Oncology recs appreciated - on full liquids as directed by general surgery -Follow up with oncology for chemo Severe Iron deficiency anemia Thrombocytosis - IV iron 3 doses completed - follow CBC - outpatient f/u wtih oncology UTI, POA - Rocephin X 3 day- completed 08/21/21 Weakness and Debility - pt/ot DVT prophylaxis: Heparin Discussed with:, Nursing Anticipated discharge: undetermined Anticipated discharge place: Home A total of 25 minutes was spent on the care of this complex patient more than 50% of the time was spent in counseling and care coordination.
--- NOTE | 2021-08-28 20:36 | P.PN ---
Subjective Progress Note Date: 08/28/21 Principal diagnosis: new diagnosis of adenocarcinoma status post colectomy Pathology has resulted. 0/16 LN although perforation on arrival would consider her a candidate for adjuvant therapy alone. Will send for NGS and Oncodx for further risk of recurrence score. She was encouraged again today to increase activity and increase activity as well as incentive spirometer. She also is passing gas and has had BM Objective - Vital Signs Vital signs: Vital Signs Temp 98.7 F 08/28/21 10:57 Pulse 88 08/28/21 10:57 Resp 16 08/28/21 04:40 BP 150/86 08/28/21 10:57 Pulse Ox 90 L 08/28/21 04:40 Intake & Output 08/27/21 08/28/21 08/28/21 18:59 06:59 18:59 Intake Total 480 Output Total 1100 500 875 Balance -130 -965 -319 Intake: Oral 480 Output: Urine 1100 500 875 Other: Voiding Method Diaper External Catheter External Catheter # Voids 2 # Bowel Movements 2 1 - Exam Alert and oriented Tearful Neck: Supple Lungs: Diminished Abd: Binder and tender to slight touch Ext: Mild edema Heart RRR - Labs CBC & Chem 7: 08/28/21 05:06 08/28/21 05:06 Labs: Abnormal Lab Results - Last 24 Hours (Table) 08/28/21 Range/Units 05:06 Hgb 9.7 L (11.4-16.0) gm/dL Hct 33.0 L (34.0-46.0) % MCV 77.7 L (80.0-100.0) fL MCH 22.7 L (25.0-35.0) pg MCHC 29.2 L (31.0-37.0) g/dL RDW 22.5 H (11.5-15.5) % Plt Count 758 H (150-450) k/uL Assessment and Plan (1) Mass of colon Current Visit: Yes Status: Acute Code(s): K63.89 - OTHER SPECIFIED DISEASES OF INTESTINE SNOMED Code(s): 246312979 (2) Microcytic anemia Current Visit: Yes Status: Acute Code(s): D50.9 - IRON DEFICIENCY ANEMIA, UNSPECIFIED SNOMED Code(s): 196268020 Plan: New Diagnosis of Colon Cancer Adenocarcinoma: - Status Post Left Colectomy and small bowel resection, drainage of abdominal cyst. Microcytic Anemia: - Component of Iron Deficiency - Hold off on IV Iron infusions with Bacteremia, may give after resolution of infection Discussed pathology and recommendation for adjuvant chemo given perforation on surgical presentation. Continue encouraging to get up and out of bed Plan to follow-up in office 3 weeks after dicharge, will need schedule port placement as well.
--- NOTE | 2021-08-28 20:37 | P.PN ---
Subjective Progress Note Date: 08/27/21 Principal diagnosis: new diagnosis of adenocarcinoma status post colectomy path pending, Positive gas passing Objective - Vital Signs Vital signs: Vital Signs Temp 98.6 F 08/27/21 05:00 Pulse 84 08/27/21 08:00 Resp 17 08/27/21 08:00 BP 141/87 08/27/21 05:00 Pulse Ox 95 08/27/21 05:00 Intake & Output 08/26/21 08/27/21 08/27/21 18:59 06:59 18:59 Intake Total 1700 800 240 Output Total 1700 910 Balance 0 -110 240 Weight 78.7 kg Intake: Intake, IV Titration 1700 800 Amount D5-0.45% NaCl with KCl 1500 800 20Meq/l 1,000 ml @ 125 mls/hr IV .Q8H LAZ Rx#: [id number] Piperacillin-Tazobactam 3 200 .375 gm In Sodium Chloride 0.9% 100 ml @ 25 mls/hr IVPB Q8HR LAZ Rx# :[id number] Oral 240 Output: Drainage 10 Left Lower Abdomen 10 Urine 1700 900 Other: Voiding Method Diaper Diaper Diaper Incontinent External Catheter External Catheter # Bowel Movements 0 2 - Exam Alert and oriented Tearful Neck: Supple Lungs: Diminished Abd: Binder and tender to slight touch Ext: Mild edema Heart RRR - Labs CBC & Chem 7: 08/28/21 05:06 08/28/21 05:06 Labs: Abnormal Lab Results - Last 24 Hours (Table) 08/23/21 08/23/21 08/26/21 Range/Units 05:46 05:46 05:30 WBC 13.6 H (3.8-10.6) k/uL Hgb 9.4 L (11.4-16.0) gm/dL Hct 32.2 L (34.0-46.0) % MCV 78.3 L (80.0-100.0) fL MCH 22.9 L (25.0-35.0) pg MCHC 29.2 L (31.0-37.0) g/dL RDW 21.7 H (11.5-15.5) % Plt Count 714 H (150-450) k/uL Neutrophils # 11.0 H (1.3-7.7) k/uL Sodium (137-145) mmol/L Carbon Dioxide 18.8 L (21.6-31.8) mmol/L Anion Gap 20.20 H (4.00-12.00) mmol/L BUN 8.5 L (9.0-27.0) mg/dL Creatinine (0.52-1.04) mg/dL BUN/Creatinine Ratio 8.50 L (12.00-20.00) Ratio Glucose 148 H (70-110) mg/dL Calcium 10.7 H (8.7-10.3) mg/dL AST 11 L (13-35) U/L Alkaline Phosphatase 284 H (41-126) U/L Total Protein 5.6 L (6.2-8.2) g/dL Albumin 2.8 L (3.8-4.9) g/dL Albumin/Globulin Ratio 1.00 L (1.60-3.17) g/dL Vitamin B12 1329.0 H (200.0-944.0) pg/mL Methylmalonic Acid 0.51 H (<0.40) umol/L 08/27/21 08/27/21 Range/Units 04:49 04:49 WBC 12.9 H (3.8-10.6) k/uL Hgb 10.1 L (11.4-16.0) gm/dL Hct (34.0-46.0) % MCV 75.8 L (80.0-100.0) fL MCH 22.4 L (25.0-35.0) pg MCHC 29.5 L (31.0-37.0) g/dL RDW 22.1 H (11.5-15.5) % Plt Count 864 H (150-450) k/uL Neutrophils # 9.7 H (1.3-7.7) k/uL Sodium 135 L (137-145) mmol/L Carbon Dioxide (21.6-31.8) mmol/L Anion Gap (4.00-12.00) mmol/L BUN 3 L (9.0-27.0) mg/dL Creatinine 0.50 L (0.52-1.04) mg/dL BUN/Creatinine Ratio (12.00-20.00) Ratio Glucose 146 H (70-110) mg/dL Calcium (8.7-10.3) mg/dL AST (13-35) U/L Alkaline Phosphatase (41-126) U/L Total Protein (6.2-8.2) g/dL Albumin (3.8-4.9) g/dL Albumin/Globulin Ratio (1.60-3.17) g/dL Vitamin B12 (200.0-944.0) pg/mL Methylmalonic Acid (<0.40) umol/L Assessment and Plan (1) Mass of colon Current Visit: Yes Status: Acute Code(s): K63.89 - OTHER SPECIFIED DISEASES OF INTESTINE SNOMED Code(s): 044452689 (2) Microcytic anemia Current Visit: Yes Status: Acute Code(s): D50.9 - IRON DEFICIENCY ANEMIA, UNSPECIFIED SNOMED Code(s): 192361413 Plan: New Diagnosis of Colon Cancer Adenocarcinoma: - Status Post Left Colectomy and small bowel resection, drainage of abdominal cyst. Microcytic Anemia: - Component of Iron Deficiency - daily cbc Plan to follow-up in office 3 weeks after dicharge, will need schedule port placement as well.
[2021-08-29] MEDS: HEPARIN SODIUM,PORCINE/PF 5,000 UNIT/0.5 ML SYRINGE SQ SCH ×4 (01:11→23:43)
[2021-08-29] MEDS: METOCLOPRAMIDE 5 MG/ML 2 ML VIAL IVP SCH ×5 (01:12→23:46)
[2021-08-29] MEDS: PIPERACILLIN-TAZOBACTAM 3.375 GM in SODIUM CHLORIDE 0.9% 100 ML IVPB SCH ×4 (01:13→23:43)
[2021-08-29] MEDS: KETOROLAC 15 MG/ML 1 ML VIAL IVP SCH ×4 (01:14→17:28)
[2021-08-29] MEDS ORDERED: ACETAMINOPHEN TAB 325 MG TAB PO PRN (07:56)
[2021-08-29] MEDS: amLODIPine 5 MG TAB PO SCH (10:11)
--- NOTE | 2021-08-29 11:18 | XR ---
EXAMINATION TYPE: XR chest 2V DATE OF EXAM: 08/29/2021 COMPARISON: Chest x-ray and CT chest 6 days ago. HISTORY: CTA chest and chest x-ray 6 days ago. TECHNIQUE: Frontal and lateral views of the chest are obtained. FINDINGS: There is persistent but improving bilateral lower lung atelectasis. There is persistent ba silar dependent left lung opacity favoring atelectasis versus consolidation seen best on lateral view . The cardiac silhouette size is stable and mildly enlarged. The osseous structures remain somewhat demineralized. IMPRESSION: Cardiomegaly with persistent lower lung atelectasis and/or consolidation is improved fro m 6 days earlier.
--- NOTE | 2021-08-29 12:54 | P.PN ---
<Tamei Kellogg - Last Filed: 08/29/21 12:48> Subjective Progress Note Date: 08/29/21 CHIEF COMPLAINT: Perforated sigmoid colon mass HISTORY OF PRESENT ILLNESS: Patient is status post Left colectomy, small bowel resection, mobilization splenic flexure, drainage of abdominal abscess for perforated sigmoid colon mass. Patient is seen lying in bed. She states her pain is well managed. She had a bowel movement through the night for which she denies any blood in her stool. She was transitioned to a low fiber diet yesterday states that she didn't tolerate it well just due to taste and not having solid food and so long. She denied any nausea or vomiting or abdominal pain associated with eating. She's having oatmeal this morning without any complaints. No new labs this morning. Patient's WBC was normal yesterday with a stable hemoglobin. Patient states she has been up and ambulating with physical therapy. She is afebrile. PHYSICAL EXAM: VITAL SIGNS: Reviewed. GENERAL: Well-developed in no acute distress. HEENT: No sclera icterus. Extraocular movements grossly intact. Moist buccal mucosa. Head is atraumatic, normocephalic. ABDOMEN: Soft. Nondistended. Incisional dressing on a small area of old drainage noted at the lower part of the incision. Julian followed approximated. KRUPA drain serosanguineous drainage. NEUROLOGIC: Alert and oriented. Cranial nerves II through XII grossly intact. PSYCH: Flat affect ASSESSMENT: 1. Perforated sigmoid colon mass status post Left colectomy, small bowel resection, mobilization splenic flexure, drainage of abdominal abscess PLAN: 1 -Continue low fiber diet -IV fluidsmay be discontinued -Coverlet dressing change daily, as needed -Continue pain medication as needed -Continue antibiotics -Encouraged patient to use incentive spirometer -Encouraged patient to increase activity -Consult PT OT -GI prophylaxis Protonix and DVT prophylaxis subcu heparin -If patient is doing well with ambulation, she is cleared for discharge from Gen. surgery. The impression and plan of care has been dictated as directed. Dr. Kodi Bosch I performed a history and examination of this patient, discussed the same with the dictator. I agree with the dictator's note, documented as a scribe. Any additional findings or plans will be noted. Objective - Vital Signs Vital signs: Vital Signs Temp 98 F 08/29/21 04:22 Pulse 87 08/29/21 04:22 Resp 18 08/29/21 04:22 BP 176/90 08/29/21 04:22 Pulse Ox 94 L 08/29/21 04:22 Intake & Output 08/28/21 08/29/21 08/29/21 18:59 06:59 18:59 Intake Total 320 Output Total 1685 700 Balance -1365 -700 Weight 78.7 kg Intake: Oral 320 Output: Drainage 10 Left Lower Abdomen 10 Urine 1675 700 Other: Voiding Method External Catheter External Catheter External Catheter # Bowel Movements 1 1 - Labs CBC & Chem 7: 08/28/21 05:06 08/28/21 05:06 Assessment and Plan (1) Iron deficiency anemia Current Visit: Yes Status: Acute Code(s): D50.9 - IRON DEFICIENCY ANEMIA, UNSPECIFIED SNOMED Code(s): 57184836 (2) Microcytic anemia Current Visit: Yes Status: Acute Code(s): D50.9 - IRON DEFICIENCY ANEMIA, UNSPECIFIED SNOMED Code(s): 775239712 (3) Urinary tract infection Current Visit: Yes Status: Acute Code(s): N39.0 - URINARY TRACT INFECTION, SITE NOT SPECIFIED SNOMED Code(s): 04895688 (4) Mass of colon Current Visit: Yes Status: Acute Code(s): K63.89 - OTHER SPECIFIED DISEASES OF INTESTINE SNOMED Code(s): 338930528 <Yahir Bosch - Last Filed: 08/29/21 17:03> Subjective As above. Patient doing better today. Less pain. Tolerating diet. She is having bowel movement. Energy level seems somewhat improved although still needs 2 people to ambulate. We'll remove drain tube at this time. Reevaluate for discharge tomorrow. Objective - Vital Signs Vital signs: Vital Signs Temp 97.6 F 08/29/21 12:14 Pulse 103 H 08/29/21 12:14 Resp 18 08/29/21 12:14 BP 143/91 08/29/21 12:14 Pulse Ox 96 08/29/21 12:14 Intake & Output 08/28/21 08/29/21 08/29/21 18:59 06:59 18:59 Intake Total 320 Output Total 1685 700 Balance -1365 -700 Weight 78.7 kg Intake: Oral 320 Output: Drainage 10 Left Lower Abdomen 10 Urine 1675 700 Other: Voiding Method External Catheter External Catheter External Catheter # Bowel Movements 1 1 - Labs CBC & Chem 7: 08/28/21 05:06 08/28/21 05:06 Assessment and Plan (1) Mass of colon Current Visit: Yes Status: Acute Code(s): K63.89 - OTHER SPECIFIED DISEASES OF INTESTINE SNOMED Code(s): 146442389
--- NOTE | 2021-08-29 13:22 | P.PN ---
Subjective Patient is doing fairly well today. She is tolerating diet with no difficulty. She denies any nausea or vomiting. Objective - Vital Signs Vital signs: Vital Signs Temp 97.6 F 08/29/21 12:14 Pulse 103 H 08/29/21 12:14 Resp 18 08/29/21 12:14 BP 143/91 08/29/21 12:14 Pulse Ox 96 08/29/21 12:14 Intake & Output 08/28/21 08/29/21 08/29/21 18:59 06:59 18:59 Intake Total 320 Output Total 1685 700 Balance -1365 -700 Weight 78.7 kg Intake: Oral 320 Output: Drainage 10 Left Lower Abdomen 10 Urine 1675 700 Other: Voiding Method External Catheter External Catheter External Catheter # Bowel Movements 1 1 - Exam General: The patient is awake and alert, in no distress Eye: there is normal conjunctiva bilaterally. Neck: The neck is supple, there is no JVD. Cardiovascular: Normal S1-S2, no S3-S4, no murmurs. Respiratory: Lungs clear to auscultation bilaterally Gastrointestinal: Abdomen is nontender. There is an abdominal binder. Musculoskeletal: There is no pedal edema. Neurological:. Speech is normal. Skin: Skin is warm and dry - Labs CBC & Chem 7: 08/28/21 05:06 08/28/21 05:06 Assessment and Plan Assessment: Patient is a 62-year-old female with no known PMH, who doesn't follow with a PCP who had presented to [facility] on 08/15 with complaints of lethargy and weakness. The patient had underwent an extensive evaluation at [facility] with UA consistent with UTI, leukocytosis with WC count 19.9, hemoglobin 7.9 (no baseline available for comparison), MCV 67, troponin I 0.05, and sodium 128. CT head and CT angiogram of head and neck both unremarkable with chest x-ray also showing no acute process. EKG had revealed sinus tachycardia at [address]/T-wave changes noted as reviewed by me. The patient was admitted for presumed pyelonephritis and started on IV ceftriaxone and IV fluids. The following morning, the patient's hemoglobin dropped to 6.6 and WC count increased to 1.9. The patient was transfused 1 unit of PRBCs and sent to [facility] for further evaluation. Iron studies came back and showed severe iron deficiency anemia with an iron sat of 5%. GI was consulted for possible upper and lower endoscopy which was performed on 08/20 and demonstrated circumferential ulcerated sigmoid colonic mass with 1 cm cecal polyp and once Corea transverse descending colon polyp. She was also found to have a small hiatal hernia and esophagitis. She underwent a CT abdomen and pelvis which showed a large segment of thickened sigmoid colon with a hypodense collection anterior likely related to abscess formation. Surgery was consulted and on 08/22 patient underwent left-sided colectomy, small bowel resection, and drainage of abdominal abscess for perforated sigmoid colon mass. She has been significantly weak after surgery and requiring 2 people for assistance. 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 status post colectomy on 08/22 -Surgery recommendations -Zosyn day #8 -We will transition to a short course of Augmentin on discharge -Oncology recs appreciated, plan for chemotherapy outpatient - Diet as directed by general surgery -Follow up with oncology for chemo Severe Iron deficiency anemia Thrombocytosis -Continue iron supplements UTI, POA - Rocephin X 3 day- completed 08/21/21 Weakness and Debility - pt/ot DVT prophylaxis: Heparin Discussed with:, Nursing Anticipated discharge: undetermined Anticipated discharge place: Home A total of 25 minutes was spent on the care of this complex patient more than 50% of the time was spent in counseling and care coordination.
[2021-08-29] MEDS: FERROUS SULFATE 325 MG TAB PO SCH (15:22)
[2021-08-29] MEDS: KETOROLAC 30 MG/ML 1 ML VIAL IVP SCH ×2 (18:00→23:43)
--- NOTE | 2021-08-29 21:36 | P.PN ---
Subjective Progress Note Date: 08/29/21 Principal diagnosis: New Colon Cancer I have reviewed the pathology with patient and we discussed the need of increased PO intake and motivation to move. Objective - Vital Signs Vital signs: Vital Signs Temp 98 F 08/29/21 04:22 Pulse 87 08/29/21 04:22 Resp 18 08/29/21 04:22 BP 176/90 08/29/21 04:22 Pulse Ox 94 L 08/29/21 04:22 Intake & Output 08/28/21 08/29/21 08/29/21 18:59 06:59 18:59 Intake Total 320 Output Total 1685 700 Balance -1365 -700 Weight 78.7 kg Intake: Oral 320 Output: Drainage 10 Left Lower Abdomen 10 Urine 1675 700 Other: Voiding Method External Catheter External Catheter # Bowel Movements 1 1 - Exam Alert and oriented Tearful Neck: Supple Lungs: Diminished Abd: Binder and tender to slight touch Ext: Mild edema Heart RRR - Labs CBC & Chem 7: 08/28/21 05:06 08/28/21 05:06 Labs: Abnormal Lab Results - Last 24 Hours (Table) 08/28/21 Range/Units 05:06 BUN 5.6 L (9.0-27.0) mg/dL Creatinine 0.5 L (0.6-1.5) mg/dL BUN/Creatinine Ratio 11.20 L (12.00-20.00) Ratio Alkaline Phosphatase 473 H (41-126) U/L Total Protein 5.4 L (6.2-8.2) g/dL Albumin 2.6 L (3.8-4.9) g/dL Albumin/Globulin Ratio 0.93 L (1.60-3.17) g/dL Assessment and Plan (1) Mass of colon Current Visit: Yes Status: Acute Code(s): K63.89 - OTHER SPECIFIED DISEASES OF INTESTINE SNOMED Code(s): 501791413 (2) Microcytic anemia Current Visit: Yes Status: Acute Code(s): D50.9 - IRON DEFICIENCY ANEMIA, UNSPECIFIED SNOMED Code(s): 185621494 Plan: New Diagnosis of Colon Cancer Adenocarcinoma: - Status Post Left Colectomy and small bowel resection, drainage of abdominal cyst. Microcytic Anemia: - Component of Iron Deficiency - daily cbc DISPO PLAN for Oncology: - Review of pathology and with perforation on admission likely chemo adjuvant will be indicated, when speaking to Dr. Riggs prior we discussed further testing and awaiting final path. At this time mesenteric LN positive Message has been sent to our office and they are cordinating the following steps - PET scan as outpatient - Mediport placement as outpatient - Oncotype DX and NGS on Pathology - Follow-up with Dr. Riggs for final recommendations in 3-4 weeks after above performed. Patient is agreeable, we also discussed important of increased activity and PO intake for adequate healing and maintaining good performance for candidacy of adjuvant chemotherapy.
[2021-08-30] MEDS: METOCLOPRAMIDE 5 MG/ML 2 ML VIAL IVP SCH ×2 (05:32→11:56)
[2021-08-30] MEDS: KETOROLAC 30 MG/ML 1 ML VIAL IVP SCH ×2 (05:33→14:42)
[2021-08-30] MEDS ORDERED: PANTOPRAZOLE 40 MG TABLET PO SCH (07:30)
[2021-08-30] MEDS: FERROUS SULFATE 325 MG TAB PO SCH (07:59)
[2021-08-30] MEDS: HEPARIN SODIUM,PORCINE/PF 5,000 UNIT/0.5 ML SYRINGE SQ SCH (07:59)
[2021-08-30] MEDS: PIPERACILLIN-TAZOBACTAM 3.375 GM in SODIUM CHLORIDE 0.9% 100 ML IVPB SCH (09:51)
[2021-08-30] MEDS: amLODIPine 5 MG TAB PO SCH (09:51)
[2021-08-30 13:02] VITALS: BP 150/81; PULSE 89; RESP 15; TEMP 97.7
--- NOTE | 2021-08-30 13:39 | P.PN ---
<Tamie Kellogg - Last Filed: 08/30/21 13:36> Subjective Progress Note Date: 08/30/21 CHIEF COMPLAINT: Perforated sigmoid colon mass HISTORY OF PRESENT ILLNESS: Patient is status post Left colectomy, small bowel resection, mobilization splenic flexure, drainage of abdominal abscess for perforated sigmoid colon mass. Patient is seen lying in bed. She states her pain is well managed. She had a bowel movement through the night for which she denies any blood in her stool. The patient is tolerating her diet. She denied any nausea or vomiting or abdominal pain associated with eating. Patient is moving her bowels. She was up and ambulated down the hallway today with 1 person assist. Physical therapy is continuing to work with patient to build up her strength. KRUPA drain was removed yesterday. Patient has been afebrile. PHYSICAL EXAM: VITAL SIGNS: Reviewed. GENERAL: Well-developed in no acute distress. HEENT: No sclera icterus. Extraocular movements grossly intact. Moist buccal mucosa. Head is atraumatic, normocephalic. ABDOMEN: Soft. Nondistended. KRUPA drain site well approximated without any drainage. Abdominal incision well approximated with diana, dressing clean dry and intact. Abdominal binder on. NEUROLOGIC: Alert and oriented. Cranial nerves II through XII grossly intact. PSYCH: Flat affect ASSESSMENT: 1. Perforated sigmoid colon mass status post Left colectomy, small bowel resection, mobilization splenic flexure, drainage of abdominal abscess PLAN: 1 -Continue low fiber diet -Coverlet dressing change daily, as needed -Continue pain medication as needed -Continue antibiotics -Encouraged patient to use incentive spirometer -Encouraged patient to increase activity -Cotherapy on consult -GI prophylaxis Protonix and DVT prophylaxis subcu heparin -Patient is cleared for discharge from a general surgery standpoint once otherwise medically cleared The impression and plan of care has been dictated as directed. Dr. Kodi Bosch I performed a history and examination of this patient, discussed the same with the dictator. I agree with the dictator's note, documented as a scribe. Any additional findings or plans will be noted. Objective - Vital Signs Vital signs: Vital Signs Temp 97.9 F 08/30/21 07:10 Pulse 86 08/30/21 07:10 Resp 16 08/30/21 07:10 BP 173/75 08/30/21 07:10 Pulse Ox 86 L 08/30/21 07:10 Intake & Output 08/29/21 08/30/21 08/30/21 18:59 06:59 18:59 Intake Total 880 Output Total 10 300 Balance -10 580 Intake: Intake, IV Titration 280 Amount IV Fluid Continuation 1, 180 000 ml @ 0 mls/hr IV .STK -MED ONE Rx#:[id number] Piperacillin-Tazobactam 3 100 .375 gm In Sodium Chloride 0.9% 100 ml @ 25 mls/hr IVPB Q8HR [facility] Rx# :[id number] Oral 600 Output: Drainage 10 Left Lower Abdomen 10 Urine 300 Other: Voiding Method External Catheter Bedside Commode # Bowel Movements 1 3 - Labs CBC & Chem 7: 08/28/21 05:06 08/28/21 05:06 Assessment and Plan (1) Iron deficiency anemia Status: Acute Code(s): D50.9 - IRON DEFICIENCY ANEMIA, UNSPECIFIED SNOMED Code(s): 22129535 (2) Microcytic anemia Status: Acute Code(s): D50.9 - IRON DEFICIENCY ANEMIA, UNSPECIFIED SNOMED Code(s): 860508668 (3) Urinary tract infection Status: Acute Code(s): N39.0 - URINARY TRACT INFECTION, SITE NOT SPECIFIED SNOMED Code(s): 25725416 (4) Mass of colon Status: Acute Code(s): K63.89 - OTHER SPECIFIED DISEASES OF INTESTINE SNOMED Code(s): 482475014 <Yahir Bosch - Last Filed: 08/30/21 17:00> Subjective As above. Patient doing well. She is being discharged this evening. Follow-up as outpatient. Outpatient physical therapy. Objective - Vital Signs Vital signs: Vital Signs Temp 97.7 F 08/30/21 12:26 Pulse 89 08/30/21 12:26 Resp 15 08/30/21 12:26 BP 150/81 08/30/21 12:26 Pulse Ox 91 L 08/30/21 12:26 Intake & Output 08/29/21 08/30/21 08/30/21 18:59 06:59 18:59 Intake Total 880 Output Total 10 300 Balance -10 580 Intake: Intake, IV Titration 280 Amount IV Fluid Continuation 1, 180 000 ml @ 0 mls/hr IV .STK -MED ONE Rx#:[id number] Piperacillin-Tazobactam 3 100 .375 gm In Sodium Chloride 0.9% 100 ml @ 25 mls/hr IVPB Q8HR [facility] Rx# :[id number] Oral 600 Output: Drainage 10 Left Lower Abdomen 10 Urine 300 Other: Voiding Method External Catheter Bedside Commode Bedside Commode # Bowel Movements 1 3 - Labs CBC & Chem 7: 08/28/21 05:06 08/28/21 05:06 Assessment and Plan (1) Mass of colon Status: Acute Code(s): K63.89 - OTHER SPECIFIED DISEASES OF INTESTINE SNOMED Code(s): 454654440
--- NOTE | 2021-08-30 14:21 | P.DS ---
Providers Date of admission: 08/17/21 11:58 Expected date of discharge: 08/30/21 Attending physician: Guzman Lieberman Consults: 08/20/21 13:24 Consult Physician Routine Consulting Provider: Yahir Bosch Consult Reason/Comments: sigmoid colon mass Do you want consulting provider notified?: Yes 08/22/21 18:55 Consult Physician Routine Consulting Provider: Sandro Riggs Consult Reason/Comments: adenocarcinoma of the colon newly discovered Do you want consulting provider notified?: Yes Primary care physician: Stated None Hospital Course: Patient is a 62-year-old female with no known PMH, who doesn't follow with a PCP who had presented to [facility] on 08/15 with complaints of lethargy and weakness. The patient had underwent an extensive evaluation at [facility] with UA consistent with UTI, leukocytosis with WC count 19.9, hemoglobin 7.9 (no baseline available for comparison), MCV 67, troponin I 0.05, and sodium 128. CT head and CT angiogram of head and neck both unremarkable with chest x-ray also showing no acute process. EKG had revealed sinus tachycardia at [address]/T-wave changes noted as reviewed by me. The patient was admitted for presumed pyelonephritis and started on IV ceftriaxone and IV fluids. The following morning, the patient's hemoglobin dropped to 6.6 and WC count increased to 1.9. The patient was transfused 1 unit of PRBCs and sent to [facility] for further evaluation. Iron studies came back and showed severe iron deficiency anemia with an iron sat of 5%. GI was consulted for possible upper and lower endoscopy which was performed on 08/20 and demonstrated circumferential ulcerated sigmoid colonic mass with 1 cm cecal polyp and once Corea transverse descending colon polyp. She was also found to have a small hiatal hernia and esophagitis. She underwent a CT abdomen and pelvis which showed a large segment of thickened sigmoid colon with a hypodense collection anterior likely related to abscess formation. Surgery was consulted and on 08/22 patient underwent left-sided colectomy, small bowel resection, and drainage of abdominal abscess for perforated sigmoid colon mass. She has been significantly weak after surgery and requiring 2 people for assistance. 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 She will be transitioned to oral Augmentin to finish 5 more days -Oncology recs appreciated, plan for chemotherapy outpatient - Diet as directed by general surgery -Follow up with oncology for chemo Severe Iron deficiency anemia Thrombocytosis -Continue iron supplements UTI, POA - Rocephin X 3 day- completed 08/21/21 Weakness and Debility - pt/ot Patient will be discharged home in a stable condition. Physical exam: General: The patient is awake and alert, in no distress Eye: there is normal conjunctiva bilaterally. Neck: The neck is supple, there is no JVD. Cardiovascular: Normal S1-S2, no S3-S4, no murmurs. Respiratory: Lungs clear to auscultation bilaterally Gastrointestinal: Abdomen is soft, nontender Musculoskeletal: There is no pedal edema. Neurological:. Speech is normal. Skin: Skin is warm and dry Plan - Discharge Summary Discharge Rx Participant: Yes New Discharge Prescriptions: New amLODIPine [Norvasc] 10 mg PO DAILY #30 tablet Pantoprazole [Protonix] 40 mg PO AC-BRKFST #30 tab Amoxicillin/Potassium Clav [Augmentin 875-125 Tablet] 1 tab PO Q12HR 5 Days #10 tab Ferrous Sulfate [Iron (65 MG Elemental)] 325 mg PO BID-W/MEALS #60 tab Continue Multivitamins, Thera [Multivitamin (formulary)] 1 tab PO DAILY Cholecalciferol [Vitamin D3 (25 Mcg = 1000 Iu)] 25 mcg PO DAILY Discharge Medication List Cholecalciferol [Vitamin D3 (25 Mcg = 1000 Iu)] 25 mcg PO DAILY 08/17/21 [History] Multivitamins, Thera [Multivitamin (formulary)] 1 tab PO DAILY 08/17/21 [History] Amoxicillin/Potassium Clav [Augmentin 875-125 Tablet] 1 tab PO Q12HR 5 Days #10 tab 08/30/21 [Rx] Ferrous Sulfate [Iron (65 MG Elemental)] 325 mg PO BID-W/MEALS #60 tab 08/30/21 [Rx] Pantoprazole [Protonix] 40 mg PO AC-BRKFST #30 tab 08/30/21 [Rx] amLODIPine [Norvasc] 10 mg PO DAILY #30 tablet 08/30/21 [Rx] Follow up Appointment(s)/Referral(s): Roma Roblero MD [STAFF PHYSICIAN] - 1 Week Activity/Diet/Wound Care/Special Instructions: For possible in home care needs: A[employer]D Waiver program is an assistance program for "eligible adults who meet income and asset criteria can receive Medicaid- covered services like those provided by nursing homes, but can stay in their own home or another residential setting." Please call them at for application assistance. Discharge Disposition: HOME SELF-CARE
--- NOTE | 2021-08-30 14:31 | P.PN ---
Subjective Progress Note Date: 08/30/21 Principal diagnosis: UTI, spesis, anemia Seen pt is f/u, she is doing well post op, minimal discomfort, passing gas and had BM. Objective - Vital Signs Vital signs: Vital Signs Temp 97.7 F 08/30/21 12:26 Pulse 89 08/30/21 12:26 Resp 15 08/30/21 12:26 BP 150/81 08/30/21 12:26 Pulse Ox 91 L 08/30/21 12:26 Intake & Output 08/29/21 08/30/21 08/30/21 18:59 06:59 18:59 Intake Total 880 Output Total 10 300 Balance -10 580 Intake: Intake, IV Titration 280 Amount IV Fluid Continuation 1, 180 000 ml @ 0 mls/hr IV .STK -MED ONE Rx#:[id number] Piperacillin-Tazobactam 3 100 .375 gm In Sodium Chloride 0.9% 100 ml @ 25 mls/hr IVPB Q8HR [facility] Rx# :[id number] Oral 600 Output: Drainage 10 Left Lower Abdomen 10 Urine 300 Other: Voiding Method External Catheter Bedside Commode Bedside Commode # Bowel Movements 1 3 - Constitutional General appearance: Present: average body habitus, cooperative, no acute dis tress - EENT Eyes: Present: anicteric sclerae, EOMI ENT: Present: hearing grossly normal - Respiratory Respiratory: bilateral: CTA - Cardiovascular Rhythm: regular - Gastrointestinal Gastrointestinal Comment(s): midline incision dressing is C/D/I, no unusual swelling, redness or bruising, BS + General gastrointestinal: Present: soft - Neurologic Neurologic: Present: CNII-XII intact - Musculoskeletal Musculoskeletal: Present: generalized weakness - Psychiatric Psychiatric: Present: A&O x's 3, appropriate affect, intact judgment & insight - Labs CBC & Chem 7: 08/28/21 05:06 08/28/21 05:06 Assessment and Plan (1) Colon adenocarcinoma Current Visit: Yes Status: Acute Priority: High Code(s): C18.9 - MALIGNANT NEOPLASM OF COLON, UNSPECIFIED SNOMED Code(s): 877963073 (2) Iron deficiency anemia Current Visit: Yes Status: Acute Priority: High Code(s): D50.9 - IRON DEFICIENCY ANEMIA, UNSPECIFIED SNOMED Code(s): 33479781 Plan: Colon adenocarcinoma, newly diagnosed. Pending Oncotype Dx, NGS and staging PET scan-will plan for PET in about 3-4 weeks to allow healing form surgery. F/U Dr. Roblero Microcytic, hypochromic anemia likely 2/2 chronic losses from colon tumor. Oral iron BID, pt seems to be tolerating
== END 2021-08-30 16:54 | disposition home or self-care (01) | DRG 853 ==
LOC: 5NMEDONC 11:58
PROVIDERS: ADMIT Internal Medicine; ATTEND Internal Medicine
PROC: 0DT80ZZ Resection of Small Intestine, Open Approach (ICD-10-PCS; 2021-08-22)
PROC: 0DB98ZX Excision of Duodenum, Via Natural or Artificial Opening Endoscopic, Diagnostic (ICD-10-PCS; 2021-08-22)
PROC: 0DBH8ZX Excision of Cecum, Via Natural or Artificial Opening Endoscopic, Diagnostic (ICD-10-PCS; 2021-08-22)
PROC: 0DBM8ZZ Excision of Descending Colon, Via Natural or Artificial Opening Endoscopic (ICD-10-PCS; 2021-08-22)
PROC: 3E00XMZ Introduction of Pigment into Skin and Mucous Membranes, External Approach (ICD-10-PCS; 2021-08-22)
PROC: 0DTG0ZZ Resection of Left Large Intestine, Open Approach (ICD-10-PCS; principal; 2021-08-22 13:30)
DX: A41.9 Sepsis, unspecified organism (principal); K63.1 Perforation of intestine (nontraumatic); L02.211 Cutaneous abscess of abdominal wall; N12 Tubulo-interstitial nephritis, not specified as acute or chronic; C18.6 Malignant neoplasm of descending colon; Z20.822 Contact with and (suspected) exposure to COVID-19; D50.9 Iron deficiency anemia, unspecified; D53.9 Nutritional anemia, unspecified; K44.9 Diaphragmatic hernia without obstruction or gangrene; K59.00 Constipation, unspecified; D47.3 Essential (hemorrhagic) thrombocythemia; K20.90 Esophagitis, unspecified without bleeding; K27.9 Peptic ulcer, site unspecified, unspecified as acute or chronic, without hemorrhage or perforation; Z85.038 Personal history of other malignant neoplasm of large intestine; Z87.891 Personal history of nicotine dependence
CPT/HCPCS: 36430; 43239; 45380; 45381; 45385; 71046; 71275; 74177; 80048; 80053; 82378; 82607; 82728; 82746; 83036; 83540; 83550; 83735; 83921; 84100; 85025; 85027; 85610; 85730; 86850; 86900; 86901; 86920; 87070; 87075; 87077; 87186; 87205; 88305; 88309; 93005

== ENCOUNTER 2021-12-03 13:23 | Emergency (ER) | payer OTHER ==
--- NOTE | 2021-12-03 13:20 | US ---
"EXAMINATION TYPE: US venous doppler duplex LE BI DATE OF EXAM: 12/03/2021 12:52 PM COMPARISON: NONE CLINICAL HISTORY: M79.662 pain in left lower limb M79.661 Pain in right lower. leg numbness, left ank le swelling SIDE PERFORMED: Bilateral TECHNIQUE: The lower extremity deep venous system is examined utilizing real time linear array sonog korin with graded compression, doppler sonography and color-flow sonography. VESSELS IMAGED: Common Femoral Vein Deep Femoral Vein Greater Saphenous Vein * Femoral Vein Popliteal Vein Small Saphenous Vein * Proximal Calf Veins (* superficial vessels) Right Leg: Negative for DVT 5.6cm fluid collection in popiteal fossa anterior to vessels Left Leg: Internal echoes that are not compressible within popiteal vein 4.1cm fluid collection in popiteal fossa anterior to vessels pending phone call back on what I should do with patient Grayscale, color doppler, spectral doppler imaging performed of the deep veins of the bilateral lower extremities. Moderate size bilateral popliteal cysts noted. Acute occlusive thrombus begins in the p roximal left popliteal vein extending distally. IMPRESSION: Acute DVT in the left lower extremity beginning superficial popliteal vein level extendi ng distally. A Yellow level critical message alert has been initiated for Yahir Bosch MD via the [employer] 36 0 | Critical Results System on 12/03/2021 1:18 PM. This message alert has been sent to Yahir Bosch MD via the preferences provided by the clinician for the receipt of Radiology Critical Findings. [facility] ID [id number]."
[2021-12-03 13:30] VITALS: TEMP 97.9
[2021-12-03] MEDS ORDERED: APIXABAN 5 MG TAB PO STA (16:09)
--- NOTE | 2021-12-03 16:16 | ED ---
Extremity Problem HPI - General Chief complaint: Extremity Problem,Nontraumatic Stated complaint: DVT Time Seen by Provider: 12/03/21 15:46 Source: patient Mode of arrival: wheelchair Limitations: no limitations - History of Present Illness Initial comments: Patient is a 61-year-old female with active adenocarcinoma status post colectomy in 08/2021 who presents with left heel pain. Patient reports that she has experienced a left heel pain for months and that her oncologist Dr. Bosch referred her to outpatient ultrasound to evaluate for DVT. Venous Doppler of the left lower extremity was taken today, revealing acute DVT in the left lower extremity beginning in the superficial popliteal vein extending distally. Venous Doppler of the right lower extremity was also taken due to right knee numbness, which was negative for DVT. Patient denies fever, chills, generalized weakness, headache, shortness of breath, cough, chest pain, palpitations, abdominal pain, nausea, vomiting, diarrhea, constipation, dysuria, and bilateral leg pain. - Related Data Home Medications Medication Instructions Recorded Confirmed Cholecalciferol [Vitamin D3 (25 25 mcg PO DAILY 08/17/21 08/17/21 Mcg = 1000 Iu)] Multivitamins, Thera [Multivitamin 1 tab PO DAILY 08/17/21 08/17/21 (formulary)] Previous Rx's Medication Instructions Recorded Amoxicillin/Potassium Clav 1 tab PO Q12HR 5 Days #10 tab 08/30/21 [Augmentin 875-125 Tablet] Ferrous Sulfate [Iron (65 MG 325 mg PO BID-W/MEALS #60 tab 08/30/21 Elemental)] Pantoprazole [Protonix] 40 mg PO AC-BRKFST #30 tab 08/30/21 amLODIPine [Norvasc] 10 mg PO DAILY #30 tablet 08/30/21 Apixaban [Eliquis Starter Pack 0 mg PO DIRECTED 30 Days #1 12/03/21 (for VTE)] packet amLODIPine [Norvasc] 10 mg PO DAILY 14 Days #14 tablet 12/03/21 Allergies Allergy/AdvReac Type Severity Reaction Status Date / Time No Known Allergies Allergy Verified 12/03/21 13:29 Review of Systems ROS Statement: Those systems with pertinent positive or pertinent negative responses have been documented in the HPI. ROS Other: All systems not noted in ROS Statement are negative. Past Medical History Past Medical History: Cancer, Deep Vein Thrombosis (DVT), Musculoskeletal Disorder Additional Past Medical History / Comment(s): kidney infection History of Any Multi-Drug Resistant Organisms: None Reported Past Surgical History: Bowel Resection, Orthopedic Surgery Additional Past Surgical History / Comment(s): allison wrist surgery 2010, colon resection Past Anesthesia/Blood Transfusion Reactions: No Reported Reaction Past Psychological History: No Psychological Hx Reported Smoking Status: Former smoker Past Alcohol Use History: None Reported Past Drug Use History: None Reported - Past Family History Father Family Medical History: Cancer Mother Family Medical History: Vascular Disorder General Exam Limitations: no limitations General appearance: alert, in no apparent distress Head exam: Present: atraumatic, normocephalic, normal inspection Eye exam: Present: normal appearance, PERRL, EOMI Neck exam: Present: normal inspection, full ROM Respiratory exam: Present: normal lung sounds bilaterally. Absent: respiratory distress, wheezes, rales, rhonchi, stridor Cardiovascular Exam: Present: regular rate, normal rhythm, normal heart sounds. Absent: systolic murmur, diastolic murmur, rubs, gallop, clicks GI/Abdominal exam: Present: soft. Absent: distended, tenderness, guarding, rebound, rigid Left Upper Leg exam: Present: normal inspection, full ROM. Absent: tenderness, swelling Knee exam: Present: normal inspection, full ROM. Absent: tenderness, swelling, erythema (anteriorly and posteriorly) Lower Leg exam: Present: normal inspection, full ROM. Absent: tenderness, swelling, erythema Ankle exam: Present: normal inspection, full ROM. Absent: tenderness, swelling Foot/Toe exam: Present: full ROM, tenderness (posterior foot in the calcaneus/talus region ). Absent: normal inspection (ulcer in the calcaneus/talus region ), swelling, erythema Neurovascular tendon exam: Present: no vascular compromise. Absent: pulse deficit, abnormal cap refill, sensory deficit Right Knee exam: Present: normal inspection, full ROM. Absent: tenderness, swelling Neurological exam: Present: alert, oriented X3, CN II-XII intact Psychiatric exam: Present: normal affect, normal mood Skin exam: Present: warm, dry, intact, normal color. Absent: rash Course Vital Signs 12/03/21 12/03/21 12/03/21 13:27 16:16 17:00 Temperature 97.9 F Pulse Rate 71 88 Respiratory 16 18 Rate Blood Pressure 201/94 207/110 183/97 O2 Sat by Pulse 99 98 Oximetry Medical Decision Making - Medical Decision Making Patient is a 61-year-old female with active adenocarcinoma who presents with left heel pain. Patient is positive for DVT of the left lower extremity. [place] history and examination were performed. At this time further imaging for pulmonary embolism is not necessary. Patient looks and feels well. She is not experiencing chest pain, shortness of breath, or palpitations. She is not tachycardic or hypoxic. Patient given first dose of Eliquis and lisinopril due to blood pressure of 207/110. Repeat blood pressure was 183/97. At this time patient is experiencing asymptomatic hypertension. She does not take hypertension medication, but reports she plans to set up an appointment with new primary care provider Dr. Maulik Strong. I will discharge her with a Eliquis prescription and Norvasc with further instruction to follow up with primary care provider in 1 to 2 days for blood pressure management and repeat venous Doppler for DVT. She is agreeable to plan. Return parameters discussed. Disposition Clinical Impression: Deep vein thrombosis (DVT) of lower extremity Disposition: HOME SELF-CARE Condition: Good Additional Instructions: Take medication as prescribed. Follow-up with primary care provider at earliest available appointment for blood pressure evaluation and management, as well as repeat venous Doppler of the left lower extremity. Return to the emergency department if you experience new, concerning, or worsening symptoms, including but not limited to chest pain, palpitations, and shortness of breath. Prescriptions: Apixaban [Eliquis Starter Pack (for VTE)] 0 mg PO DIRECTED 30 Days #1 packet amLODIPine [Norvasc] 10 mg PO DAILY 14 Days #14 tablet Is patient prescribed a controlled substance at d/c from ED?: No Referrals: Derick Strong MD [Primary Care Provider] - 1-2 days Time of Disposition: 17:16
[2021-12-03] MEDS ORDERED: lisinopriL 5 MG TAB PO STA (16:19)
[2021-12-03 17:00] VITALS: BP 183/97; PULSE 88; RESP 18
== END 2021-12-03 17:41 | disposition home or self-care (01) ==
LOC: EC 13:23
DX: I82.4Z2 Acute embolism and thrombosis of unspecified deep veins of left distal lower extremity (principal); Z87.891 Personal history of nicotine dependence; Z79.01 Long term (current) use of anticoagulants
CPT/HCPCS: 93970; 99283

== ENCOUNTER 2021-12-06 08:46 | Day surgery (SDC) | payer OTHER ==
[2021-12-05 13:34] VITALS: BMI 26.6
[~2021-12-06 08:46] MED LIST: ACETAMINOPHEN TAB 500 MG TAB PO PRN; DEXAMETHASONE SOD PHOSPHATE 4 MG/ML 1 ML VIAL IV ONE; HYDROmorphone 0.5 MG/0.5 ML SYRINGE IVP PRN; LACTATED RINGERS 1,000 ML IV SCH; MIDAZOLAM 2 MG/2 ML VIAL IV PRN; ONDANSETRON 4 MG/2 ML VIAL IVP ONE; Pre Op ABX Message 1 EACH MISC MISCELLANE ONE; SCOPOLAMINE 1.5MG/72HR PATCH TRANSDERM ONE
[2021-12-06] MEDS: HEPARIN SODIUM,PORCINE/PF 5,000 UNIT/0.5 ML SYRINGE SQ PRN ×2 (09:13→10:42)
--- NOTE | 2021-12-06 10:47 | P.GSHP ---
History of Present Illness H&P Date: 12/06/21 Chief Complaint: Sigmoid colon cancer 61-year-old female known to our service. In August the patient underwent left colectomy with small bowel resection and primary anastomosis for a perforated sigmoid colon cancer. Patient has been following with oncology. Plan as of now is to begin adjuvant chemotherapy. Here today for Port-A-Cath placement. She has not had a port previously. Past Medical History Past Medical History: Cancer, Deep Vein Thrombosis (DVT), Hypertension, Musculoskeletal Disorder, Osteoarthritis (OA) Additional Past Medical History / Comment(s): hx. of colon cancer in 2020, current DVT in left leg just dx. Thursday- Dr. Bosch is aware History of Any Multi-Drug Resistant Organisms: None Reported Past Surgical History: Bowel Resection, Orthopedic Surgery Additional Past Surgical History / Comment(s): allison wrist surgery, bowel resection 2020 Past Anesthesia/Blood Transfusion Reactions: No Reported Reaction Smoking Status: Former smoker - Past Family History Father Family Medical History: Cancer Mother Family Medical History: Vascular Disorder Medications and Allergies Home Medications Medication Instructions Recorded Confirmed Type Cholecalciferol [Vitamin D3 (25 25 mcg PO DAILY 08/17/21 12/06/21 History Mcg = 1000 Iu)] Multivitamins, Thera [Multivitamin 1 tab PO DAILY 08/17/21 12/05/21 History (formulary)] amLODIPine [Norvasc] 10 mg PO DAILY 14 Days #14 tablet 12/03/21 12/06/21 Rx Apixaban [Eliquis Starter Pack 10 mg PO BID 12/05/21 12/05/21 History (for VTE)] Calcium Carbonate [Calcium] 600 mg PO DAILY 12/05/21 12/05/21 History Cyanocobalamin [Vitamin B-12] 500 mcg PO DAILY 12/05/21 12/05/21 History Aber[place]-3 Fatty Acids [A[place]-3] 1,000 mg PO DAILY 12/05/21 12/05/21 History Allergies Allergy/AdvReac Type Severity Reaction Status Date / Time No Known Allergies Allergy Verified 12/06/21 09:09 Surgical - Exam Vital Signs Temp Pulse Resp BP Pulse Ox 97.9 F 71 17 165/77 97 12/06/21 09:12 12/06/21 09:12 12/06/21 09:12 12/06/21 09:12 12/06/21 09:12 Physical exam: General: Well-developed, well-nourished HEENT: Normocephalic, sclerae nonicteric Abdomen: Nontender, nondistended Extremities: No edema Neuro: Alert and oriented Assessment and Plan (1) Colon adenocarcinoma Narrative/Plan: Will proceed with Port-A-Cath placement at this time. Risks of bleeding, infection, DVT, pneumothorax, catheter malfunction, anesthesia related complications were discussed. The patient understands and wishes to proceed. Current Visit: No Status: Acute Priority: High Code(s): C18.9 - MALIGNANT NEOPLASM OF COLON, UNSPECIFIED SNOMED Code(s): 326686529
[2021-12-06] MEDS ORDERED: MIDAZOLAM 2 MG/2 ML VIAL ONE (11:48)
[2021-12-06] MEDS ORDERED: LIDOCAINE 1% INJ 10MG/ML (20 ML MDV) ONE (11:48)
[2021-12-06] MEDS ORDERED: fentaNYL (PF) 50 MCG/ML 2 ML AMP ONE (11:48)
[2021-12-06] MEDS ORDERED: PROPOFOL 10 MG/ML 20 ML VIAL IV ONE (11:48)
[2021-12-06] MEDS ORDERED: SODIUM CHLORIDE 0.9% 100 ML IV ONE (12:12)
[2021-12-06] MEDS ORDERED: LIDOCAINE 1% INJ 10MG/ML (20 ML MDV) SQ ONE ×2 (12:15)
[2021-12-06] MEDS ORDERED: LACTATED RINGERS 1,000 ML IV ONE (12:30)
[2021-12-06] MEDS ORDERED: NALOXONE 0.4 MG/ML 1 ML VIAL IV PRN (12:36)
[2021-12-06] MEDS ORDERED: HYDROcodone/APAP 5-325MG 1 EACH TAB PO PRN (12:36)
--- NOTE | 2021-12-06 12:38 | P.OP ---
Date of Procedure: 12/06/21 Procedure(s) Performed: PREOPERATIVE DIAGNOSIS: Colon cancer POSTOPERATIVE DIAGNOSIS: Same PROCEDURE: Port-A-Cath placement with fluoroscopic and ultrasound guidance SURGEON: Hiro EBL: Minimal ANESTHESIA: Sedation COMPLICATIONS: None OPERATIVE PROCEDURE: Patient was brought and placed on the operative table in the supine position. The patient was sedated per anesthesia that time. The chest and neck were prepped and draped in usual sterile fashion. The ultrasound probe was used to identify the location of the right internal jugular vein. The skin was localized with lidocaine. The Seldinger needle was advanced into the IJ under ultrasound guidance. The wire was advanced through the needle under fluoroscopic guidance into the superior vena cava. A port pocket was created in the right infraclavicular location. The catheter was tunneled from the wire entrance site to the port pocket. The port was then connected to the catheter. The dilator introducer was threaded over the guidewire. The guidewire and dilator were then removed. The catheter was advanced through the introducer and introducer was then removed. The tip was seen to be in the right atrial junction via fluoroscopy. A picture of the radiograph showing the tip at the radial digital junction was taken. Port was flushed with both saline and a Hep- Lock solution. There was good flow both in and out of the port. The port was sutured in underlying tissues using 3-0 silk sutures. The subcutaneous tissues were reapproximated using 3-0 Vicryl sutures and the skin at both locations using 4-0 Monocryl sutures. Skin glue and sterile dressings then applied. DISPOSITION: Stable to recovery room
--- NOTE | 2021-12-06 12:50 | FL ---
Fluoroscopy History: PORTACATH PLACEMENT port a cath placement. 6 sec fl. 1 image sent.
[2021-12-06 12:58] VITALS: RESP 16; TEMP 97.1
--- NOTE | 2021-12-06 13:21 | XR ---
EXAMINATION TYPE: XR chest 1V confirm line [facility] DATE OF EXAM: 12/06/2021 COMPARISON: 08/29/2021 HISTORY: Port placement TECHNIQUE: Single frontal view of the chest is obtained. FINDINGS: Right-sided port is seen with left lower lobe infiltrate. Limited inspiration. Heart size normal. Atherosclerotic change aorta. No pneumothorax. IMPRESSION: 1. Tip of the port appears to be overlying the SVC with no sizable pneumothorax. 2. Left lower lobe infiltrate or atelectasis.
[2021-12-06 14:26] VITALS: BP 134/76; PULSE 52
== END 2021-12-06 14:29 | disposition home or self-care (01) ==
LOC: OR 08:46
PROVIDERS: ATTEND Surgery
DX: Z79.899 Other long term (current) drug therapy (principal); C18.7 Malignant neoplasm of sigmoid colon; I10 Essential (primary) hypertension; Z90.49 Acquired absence of other specified parts of digestive tract; Z98.890 Other specified postprocedural states; Z87.891 Personal history of nicotine dependence; Z86.718 Personal history of other venous thrombosis and embolism; M19.90 Unspecified osteoarthritis, unspecified site; Z80.9 Family history of malignant neoplasm, unspecified; Z84.89 Family history of other specified conditions; Z79.01 Long term (current) use of anticoagulants
CPT/HCPCS: 77001; 36561; 76937; C1788; J2250; J1100; J2405; J2001; J3010; J1642; J2704; J1644

== ENCOUNTER → 2022-02-26 | Outpatient (CLI) | payer OTHER ==
--- NOTE | 2022-02-28 12:56 | MM ---
Reason for exam: screening (asymptomatic). Baseline mammogram. History: Patient is postmenopausal and has history of colon cancer at age 61. Physical Findings: A clinical breast exam by your physician is recommended on an annual basis and results should be correlated with mammographic findings. MG Screening Mammo w CAD Bilateral CC and MLO view(s) were taken. XCCL view(s) were taken of the left breast. The breast tissue is heterogeneously dense. This may lower the sensitivity of mammography. Benign bilateral oil cyst calcifications. Small medial right CC asymmetric density middle depth. ASSESSMENT: Incomplete: need additional imaging evaluation, BI-RAD 0 RECOMMENDATION: Special view mammogram of the right breast. (3D) If lesion persists on supplemental views, image directed ultrasound is recommended. [facility] will attempt to contact patient to return for supplemental views and ultrasound if indicated.
== END | disposition home or self-care (01) ==
LOC: RADMAMWWP 13:45
PROVIDERS: ATTEND Internal Medicine Hematology & Oncology
DX: Z12.31 Encounter for screening mammogram for malignant neoplasm of breast (principal); Z78.0 Asymptomatic menopausal state; Z85.038 Personal history of other malignant neoplasm of large intestine
CPT/HCPCS: 77067

== ENCOUNTER → 2022-03-05 | Outpatient (CLI) | payer OTHER ==
--- NOTE | 2022-03-05 10:35 | MM ---
Reason for Exam: Additional evaluation requested from abnormal screening. Last screening mammogram was performed less than 1 month ago. Patient History: Menarche at age 10. First Full-Term at age 16. Postmenopausal. Colorectal cancer, age 61. Risk Values: Zakiya 5 year model risk: 1.2%. NCI Lifetime model risk: 5.5%. Film Views: Right spot compression CC view was taken. 1 view(s) taken. Right LM views were taken. Right XCCLRL views were taken. Prior Study Comparison: 02/26/2022 Bilateral Screening Mammogram, [facility]. Tissue Density: Right: The breast tissue is heterogeneously dense. This may lower the sensitivity of mammography. Findings: Analyzed By CAD. Under compression, the previous nodularity appears to disperse normally. No suspicious underlying spiculated or lobular masses evident. Overall Assessment: Probably benign, BI-RAD 3 Management: Diagnostic Mammogram of both breasts in 6 months. A clinical breast exam by your physician is recommended on an annual basis and results should be correlated with mammographic findings. This exam should not preclude additional follow-up of suspicious palpable abnormalities. Results were given to the patient verbally at the time of exam.
== END | disposition home or self-care (01) ==
LOC: RADMAMWWP 09:58
PROVIDERS: ATTEND Internal Medicine Hematology & Oncology
DX: R92.8 Other abnormal and inconclusive findings on diagnostic imaging of breast (principal); Z78.0 Asymptomatic menopausal state
CPT/HCPCS: 77065

== ENCOUNTER → 2022-03-11 | Outpatient (CLI) | payer OTHER ==
--- NOTE | 2022-03-13 04:08 | MR ---
EXAMINATION TYPE: MR lumbar spine wo/w con DATE OF EXAM: 03/11/2022 COMPARISON: None HISTORY: Difficulty walking, bilateral leg weakness CONTRAST: Standard multiplanar, multisequence MRI departmental protocol images were obtained without contrast a nd with 8 mL intravenous Gadavist gadolinium contrast. The lumbar vertebrae have normal alignment. There is degenerative disc space narrowing throughout the lumbar spine. No compression fracture. There is spurring of the endplates. There are small posterior disc bulging from L1 to L5. There is developmentally large spinal canal and no significant spinal st enosis. There is no lumbar paraspinal mass. No compression fracture. I see no focal bone destruction. There is no significant narrowing of the neural foramina. Contrast images show no pathologic enhancement. IMPRESSION: Multilevel spondylotic changes. Multilevel mild posterior disc bulging. No spinal stenosis. No fractu re.
== END | disposition home or self-care (01) ==
LOC: RADMRIMAIN 12:22
PROVIDERS: ATTEND Psychiatry & Neurology Neurology
DX: M47.816 Spondylosis without myelopathy or radiculopathy, lumbar region (principal)
CPT/HCPCS: 72158; A9585

== ENCOUNTER → 2022-04-15 | Outpatient (CLI) | payer OTHER ==
--- NOTE | 2022-04-15 13:23 | CT ---
"EXAMINATION TYPE: CT abdomen pelvis w con DATE OF EXAM: 04/15/2022 COMPARISON: CT dated 08/20/2021 HISTORY: colon CA CT DLP: 2518 mGycm Automated exposure control for dose reduction was used. TECHNIQUE: Helical acquisition of images was performed from the lung bases through the pelvis. CONTRAST: Performed with Oral Contrast and with IV Contrast, patient injected with 70 mL of Isovue 300. FINDINGS: LUNG BASES: Linear pulmonary atelectasis. LIVER/GB: Focal dilatation of the intrahepatic biliary tree is seen at the anterior aspect of the lef t hepatic lobe with milder changes at the posterior aspect of the right hepatic lobe, nonspecific. No definite measurable hepatic focal lesion identified. No radiodense gallbladder calculi. PANCREAS: No significant abnormality is seen. SPLEEN: No significant abnormality is seen. ADRENALS: No significant abnormality is seen. KIDNEYS: Bilateral renal cysts without suspicious feature, otherwise unremarkable kidneys. FREE AIR: No free air is visualized. RETROPERITONEAL ADENOPATHY: Subcentimeter retroperitoneal lymph nodes, nonspecific. REPRODUCTIVE ORGANS: Markedly distended endometrial cavity with fluid density, underlying endometrial lesion can't be excluded. Recommend correlation with ultrasound results. Right ovarian/adnexal cyst measuring up to 3.6 cm compared to 2.9 cm previously. This can be also assessed on the follow-up pelv ic ultrasound. No gross left adnexal mass. URINARY BLADDER: No significant abnormality is seen. PELVIC ADENOPATHY: No pathologically enlarged pelvic lymph nodes. OSSEOUS STRUCTURES: Osteopenia. Degenerative changes and dextroscoliosis of the lumbar spine. BOWEL: Hiatal hernia containing mainly fluid. Grossly unremarkable stomach and duodenum. No evidence of small bowel obstruction. Anterior abdominal wall hernia is seen along the incision containing sma ll bowel loops without evidence of obstruction. This was not appreciated previously. Colonic anastomo sis is seen in the left side of the abdomen. Severe fecal loading of the colon suggestive of constipa tion, mainly involving the left side of the colon, sigmoid colon and rectum. Nonspecific wall thicken ing of the terminal ileum loops. Mesenteric subcentimeter lymph nodes, nonspecific. OTHER: Arterial atherosclerotic calcifications. Questionable postradiation changes in the left side o f the abdomen. IMPRESSION: No convincing evidence for local tumor recurrence at the colonic anastomosis. Severe constipation/fec al loading of the colon as described above. Newly seen focal areas of intrahepatic biliary tree dilatation as detailed above. Subtle underlying p rimary or secondary hepatic lesions cannot be excluded. Recommend correlation with liver function santiago ts and further MRI assessment. No other obvious metastatic disease seen in the abdomen or the pelvis. Recommend further pelvic ultrasound assessment for the above described uterine and right adnexal alston ges. Other interval changes and incidental findings as described above. A Yellow level critical message alert has been initiated for Robson Morales MD via the [employer] 36 0 | Critical Results System on 04/15/2022 1:20 PM. This message alert has been sent to Robson Morales MD via the preferences provided by the clinician for the receipt of Radiology Critical Findings. [facility] ID [id number]."
== END | disposition home or self-care (01) ==
LOC: RADPROMAIN 09:30
PROVIDERS: ATTEND Internal Medicine Hematology & Oncology
DX: C18.9 Malignant neoplasm of colon, unspecified (principal)
CPT/HCPCS: 74177; J1642; Q9967

== ENCOUNTER → 2022-04-24 | Outpatient (CLI) | payer OTHER ==
--- NOTE | 2022-04-24 13:09 | US ---
EXAMINATION TYPE: US pelvic complete DATE OF EXAM: 04/24/2022 COMPARISON: CT 2021 CLINICAL HISTORY: C18.7 COLON CANCER. Follow up to recent CT TECHNIQUE: . Transabdominal sonographic images of the pelvis were acquired. Transvaginal sonographi c images were medically necessary to better assess the following anatomy: endometrium and ovaries Date of LMP: 15 years ago EXAM MEASUREMENTS: Uterus: 11.0 x 6.4 x 8.7 cm Endometrial Stripe: 5.3 cm Right Ovary: 3.9 x 3.0 x 2.9 cm Left Ovary: not seen 1. Uterus: anteverted, enlarged, heterogeneous 2. Endometrium: thickened, complex 3. Right Ovary: 2.7cm cystic area 4. Left Ovary: not seen 5. Bilateral Adnexa: wnl 6. Posterior cul-de-sac: complex free fluid IMPRESSION: 1. Markedly thickened endometrium. Direct visualization is advised. 2. Right ovarian cystic lesion of uncertain etiology. Follow-up advised.
== END | disposition home or self-care (01) ==
LOC: RADUSWWP 09:44
PROVIDERS: ATTEND Internal Medicine Hematology & Oncology
DX: C18.7 Malignant neoplasm of sigmoid colon (principal); N83.8 Other noninflammatory disorders of ovary, fallopian tube and broad ligament
CPT/HCPCS: 76830; 76856

== ENCOUNTER → 2022-04-25 | Outpatient (CLI) | payer OTHER ==
--- NOTE | 2022-04-26 03:05 | MR ---
EXAMINATION TYPE: MR liver wo/w con DATE OF EXAM: 04/25/2022 COMPARISON: None HISTORY: Colon cancer CONTRAST: Multiplanar multi echo imaging of the abdomen and liver without and with the IV contrast gadolinium. FINDINGS: Lung bases show no pleural effusion. Heart size is normal. No sign of pericardial effusion. Liver elie ws no focal defect. The bile ducts are not dilated. There is some prominent ducts in the left hepatic lobe. There is also similar appearance in the posterior right lobe of the liver. No enhancing focus in the liver are seen to suggest metastatic disease. Spleen is intact. No evidence of pancreatic mass . Stomach is intact. No adrenal mass. Kidneys show satisfactory contrast opacification. No hydronephr osis. No sign of retroperitoneal adenopathy. No evidence of adrenal mass. There is ventral hernia in the midline abdomen that appears to contain some bowel. Hernia appears smaller than recent CT scan. T he contrast images show normal enhancement of the portal venous system. No evidence of thrombosis. IMPRESSION: No evidence of hepatic metastatic disease. Prominent anterior and posterior bile ducts of uncertain s ignificance. No obstructing mass seen. No ascites.
== END | disposition home or self-care (01) ==
LOC: RADMRIMAIN 17:45
PROVIDERS: ATTEND Internal Medicine Hematology & Oncology
DX: C18.7 Malignant neoplasm of sigmoid colon (principal)
CPT/HCPCS: 74183; A9585

== ENCOUNTER 2022-08-30 20:21 | Inpatient (IN) | payer OTHER ==
--- NOTE | 2022-08-30 21:35 | ED ---
Abdominal Pain HPI - General Chief Complaint: Abdominal Pain Stated Complaint: Hernia Time Seen by Provider: 08/30/22 21:15 Source: patient Mode of arrival: wheelchair Limitations: no limitations - History of Present Illness Initial Comments: This patient is 62-year-old woman with history of colon cancer that was resected approximately one year ago. She states that she subsequently developed an incisional hernia. She states that this may be a couple of weeks ago she noticed that there was bowel protruding but there was not really much pain. She had called and had a follow-up appointment and then was scheduled to see Dr. Bosch in September to see about resolving the hernia. The patient states about 4-5 hours ago she started having pain and noticed that the hernia was bulging more than it had been. She has not had a bowel movement today. She has had a little bit of nausea but no vomiting. No change in urination. No fever or chills. MD Complaint: abdominal pain -: hour(s) Location: periumbilical Radiation: none Migration to: no migration Severity: moderate Quality: aching Consistency: constant Improves With: nothing Worsens With: nothing Associated Symptoms: nausea, constipation - Related Data Home Medications Medication Instructions Recorded Confirmed Cholecalciferol [Vitamin D3 (25 25 mcg PO DAILY 08/17/21 12/06/21 Mcg = 1000 Iu)] Multivitamins, Thera [Multivitamin 1 tab PO DAILY 08/17/21 12/05/21 (formulary)] Apixaban [Eliquis Starter Pack 10 mg PO BID 12/05/21 12/05/21 (for VTE)] Calcium Carbonate [Calcium] 600 mg PO DAILY 12/05/21 12/05/21 Cyanocobalamin [Vitamin B-12] 500 mcg PO DAILY 12/05/21 12/05/21 [place]-3 Fatty Acids [[place]-3] 1,000 mg PO DAILY 12/05/21 12/05/21 Previous Rx's Medication Instructions Recorded amLODIPine [Norvasc] 10 mg PO DAILY 14 Days #14 tablet 12/03/21 oxyCODONE HCL [OxyIR] 5 mg PO Q6H PRN 3 Days #6 tab 12/06/21 Allergies Allergy/AdvReac Type Severity Reaction Status Date / Time No Known Allergies Allergy Verified 08/30/22 20:43 Review of Systems ROS Statement: Those systems with pertinent positive or pertinent negative responses have been documented in the HPI. ROS Other: All systems not noted in ROS Statement are negative. Constitutional: Denies: fever, chills Respiratory: Denies: cough, dyspnea Cardiovascular: Denies: chest pain, palpitations Gastrointestinal: Reports: abdominal pain, nausea, constipation. Denies: vomiting, diarrhea, melena, hematochezia Genitourinary: Denies: dysuria, hematuria Musculoskeletal: Denies: back pain Skin: Denies: rash Neurological: Denies: headache, weakness, numbness Past Medical History Past Medical History: Cancer, Deep Vein Thrombosis (DVT), Musculoskeletal Disorder Additional Past Medical History / Comment(s): kidney infection History of Any Multi-Drug Resistant Organisms: None Reported Past Surgical History: Bowel Resection, Orthopedic Surgery Additional Past Surgical History / Comment(s): allison wrist surgery 2009, colon resection Past Anesthesia/Blood Transfusion Reactions: No Reported Reaction Past Psychological History: No Psychological Hx Reported Smoking Status: Former smoker Past Alcohol Use History: Occasional Past Drug Use History: None Reported - Past Family History Father Family Medical History: Cancer Mother Family Medical History: Vascular Disorder General Exam Limitations: no limitations General appearance: alert, in no apparent distress Head exam: Present: atraumatic, normocephalic Eye exam: Present: normal appearance. Absent: scleral icterus, conjunctival inj ection Neck exam: Present: normal inspection Respiratory exam: Present: normal lung sounds bilaterally. Absent: respiratory distress, wheezes, rales, rhonchi, stridor Cardiovascular Exam: Present: regular rate, normal rhythm, systolic murmur. Absent: diastolic murmur, rubs, gallop GI/Abdominal exam: Present: soft, tenderness, normal bowel sounds, hernia (There is an incisional hernia which is tender.). Absent: distended, guarding, rebound, rigid, organomegaly, pulsatile mass Extremities exam: Present: normal inspection, normal capillary refill. Absent: pedal edema, calf tenderness Back exam: Present: normal inspection. Absent: CVA tenderness (R), CVA tenderness (L) Neurological exam: Present: alert Skin exam: Present: warm, dry, intact, normal color. Absent: rash Course Vital Signs 08/30/22 08/30/22 20:43 23:16 Temperature 98 F Pulse Rate 93 80 Respiratory 16 18 Rate Blood Pressure 153/93 169/96 O2 Sat by Pulse 98 96 Oximetry Medical Decision Making - Lab Data Result diagrams: 08/30/22 21:53 08/30/22 21:53 Lab Results 08/30/22 08/30/22 08/30/22 Range/Units 21:53 21:53 21:53 WBC 13.5 H (3.8-10.6) k/uL RBC 4.80 (3.80-5.40) m/uL Hgb 14.4 (11.4-16.0) gm/dL Hct 43.1 (34.0-46.0) % MCV 89.9 (80.0-100.0) fL MCH 29.9 (25.0-35.0) pg MCHC 33.3 (31.0-37.0) g/dL RDW 14.1 (11.5-15.5) % Plt Count 434 (150-450) k/uL MPV 7.8 Neutrophils % 77 % Lymphocytes % 16 % Monocytes % 4 % Eosinophils % 2 % Basophils % 1 % Neutrophils # 10.5 H (1.3-7.7) k/uL Lymphocytes # 2.1 (1.0-4.8) k/uL Monocytes # 0.6 (0-1.0) k/uL Eosinophils # 0.2 (0-0.7) k/uL Basophils # 0.1 (0-0.2) k/uL Sodium 136 L (137-145) mmol/L Potassium 5.8 H (3.5-5.1) mmol/L Chloride 102 (98-107) mmol/L Carbon Dioxide 26 (22-30) mmol/L Anion Gap 8 mmol/L BUN 18 H (7-17) mg/dL Creatinine 0.58 (0.52-1.04) mg/dL Est GFR (CKD-EPI)AfAm >90 (>60 ml/min/1.73 sqM) Est GFR (CKD-EPI)NonAf >90 (>60 ml/min/1.73 sqM) Glucose 116 H (74-99) mg/dL Plasma Lactic Acid Ivan 1.8 (0.7-2.0) mmol/L Calcium 9.3 (8.4-10.2) mg/dL Total Bilirubin 1.0 (0.2-1.3) mg/dL AST 49 H (14-36) U/L ALT 23 (4-34) U/L Alkaline Phosphatase 303 H (38-126) U/L Total Protein 8.5 H (6.3-8.2) g/dL Albumin 4.5 (3.5-5.0) g/dL Amylase 59 (30-110) U/L Lipase 68 (23-300) U/L Disposition Clinical Impression: Incarcerated ventral hernia, Abdominal pain Disposition: ADMITTED IP TO THIS [facility] Condition: Fair Instructions (If sedation given, give patient instructions): Abdominal Pain (ED) Is patient prescribed a controlled substance at d/c from ED?: No Referrals: Derick Strong MD [Primary Care Provider] - 1-2 days
[2022-08-30 22:10] LABS: Basophils # (A) 0.1 k/uL (0-0.2); Basophils % (A) 1 %; Eosinophils # (A) 0.2 k/uL (0-0.7); Eosinophils % (A) 2 %; HCT 43.1 % (34.0-46.0); HGB 14.4 gm/dL (11.4-16.0); Lymphocytes # (A) 2.1 k/uL (1.0-4.8); Lymphocytes % (A) 16 %; MCH 29.9 pg (25.0-35.0); MCHC 33.3 g/dL (31.0-37.0); MCV 89.9 fL (80.0-100.0); Mean Platelet Volume 7.8; Monocytes # (A) 0.6 k/uL (0-1.0); Monocytes % (A) 4 %; Neutrophils # (A) 10.5 k/uL (1.3-7.7); Neutrophils % (A) 77 %; Platelet Count 434 k/uL (150-450); RDW 14.1 % (11.5-15.5); WBC 13.5 k/uL (3.8-10.6)
[2022-08-30 22:18] LABS: ALT 23 U/L (4-34); AST 49 U/L (14-36); African American GFR (CKD) >90 (>60 ml/min/1.73 sqM); Albumin 4.5 g/dL (3.5-5.0); Alkaline Phosphatase 303 U/L (38-126); Amylase 59 U/L (30-110); Anion Gap 8 mmol/L; Blood Urea Nitrogen 18 mg/dL (7-17); Calcium 9.3 mg/dL (8.4-10.2); Carbon Dioxide 26 mmol/L (22-30); Chloride 102 mmol/L (98-107); Glucose 116 mg/dL (74-99); Lipase 68 U/L (23-300); Non-African American GFR(CKD) >90 (>60 ml/min/1.73 sqM); Sodium 136 mmol/L (137-145); Total Protein 8.5 g/dL (6.3-8.2)
[2022-08-30 23:18] LABS: Potassium 5.8 mmol/L (3.5-5.1)
--- NOTE | 2022-08-30 23:57 | CT ---
EXAMINATION TYPE: CT abdomen pelvis w con DATE OF EXAM: 08/30/2022 COMPARISON: 04/15/2022 HISTORY: H/O ABD WALL HERNIA, FELT LARGER & MORE PAINFUL TONIGHT CT DLP: 1498.4 mGycm Automated exposure control for dose reduction was used. CONTRAST: Performed with IV Contrast, patient injected with 100 mL of Isovue 300. Images obtained from the diaphragm to the floor the pelvis with IV contrast. The lung bases are clear of consolidation. There is mild subsegmental atelectasis right lung base. He art size is normal. No pericardial effusion. There is hiatal hernia. Liver spleen and stomach appear intact. The bile ducts are not dilated. There is no pancreatic mass. The bile ducts are not dilated. There is mild abdominal ascites. Gallbladder appears absent. There is previous surgery on the proximal small bowel. There is a large ventral hernia containing multiple sm all bowel loops. The hernia measures 17 x 5 cm. The opening is 7 cm. There is no free air. There is some retained fecal material in the large bowel. The lumbar spine is i ntact. No compression fracture. The bony pelvis appears intact. The hip joints are intact. The uterus is anteverted with dilated endometrial cavity that measures 3.3 cm. IMPRESSION: Abdominal ascites. Large incarcerated ventral hernia containing small bowel. No definite sign of a me chanical bowel obstruction. Previous abdominal surgery. Mild constipation. Hernia is significantly increased in size compared to old exams Markedly dilated endometrial cavity which is slightly smaller than old exam. Follow-up is recommended .
[2022-08-31] MEDS ORDERED: ONDANSETRON 4 MG/2 ML VIAL IVP PRN (00:10)
[2022-08-31] MEDS ORDERED: MORPHINE SULFATE 4 MG/ML SYRINGE IV PRN (00:10)
[2022-08-31] MEDS ORDERED: NALOXONE 0.4 MG/ML 1 ML VIAL IV PRN (00:10)
[2022-08-31 01:44] LABS: Amorphous Sediment,Urine Rare /hpf; Appearance,Urine Cloudy (Clear); Bacteria,Urine Occasional /hpf; Bilirubin,Urine Negative (Negative); Blood,Urine Large (Negative); Color,Urine Light Yellow; Glucose,Urine (UA) Negative (Negative); Ketones,Urine Negative (Negative); Leukocyte Esterase,Urine Large (Negative); Mucus,Urine Rare /hpf; Nitrite,Urine Positive (Negative); Protein,Urine Trace (Negative); RBC,Urine 69 /hpf (0-5); Specific Gravity,Urine 1.033 (1.001-1.035); Squamous Epithelial Cell,Urine 5 /hpf (0-4); Urobilinogen,Urine <2.0 mg/dL (<2.0); WBC,Urine 45 /hpf (0-5)
[2022-08-31] MEDS: SODIUM CHLORIDE 0.9% 1,000 ML IV SCH ×2 (01:45→14:10)
--- NOTE | 2022-08-31 23:04 | P.GSHP ---
History of Present Illness H&P Date: 08/31/22 REASON FOR CONSULTATION: Abdominal pain HISTORY OF PRESENT ILLNESS: The patient is a 62 year old female who comes in with swelling of the lower abdomen including increasing abdominal pain for over 2-3 months. Patient has significant history for colon cancer diagnosed one year ago with a left hemicolectomy performed by Dr. Bosch. Patient had port placement in November 2021. She reports new abdominal swelling and pain that started 2 months ago. She is passing flatus. Her last bowel movement was 2 days ago. Patient had seen her oncologist and subsequently presents to emergency room due to increased abdominal pain. No reports of blood in stools. Patient reports appetite. No prior events. PAST MEDICAL HISTORY: See list and reviewed PAST SURGICAL HISTORY: See list and reviewed MEDICATIONS: See list and reviewed ALLERGIES: See list and reviewed SOCIAL HISTORY: See list and reviewed FAMILY HISTORY: See list and reviewed REVIEW OF ORGAN SYSTEMS: CONSTITUTIONAL: No fevers or chills. No recent weight loss. Has obesity, BMI 34.3. EYES: Denies any trouble with vision. No glasses. HEENT: No difficulties with hearing. No nosebleeds. No difficulty swallowing. RESPIRATORY: Denies pneumonia. Denies any troubles with breathing or dyspnea on exertion. CARDIOVASCULAR: Denies any chest pain, palpitations, or recent heart attacks. Has hypertensive heart disease. GASTROINTESTINAL: Denies fatty food intolerance. Denies change in bowel habits and gas bloat. Has anemia. Has daily alcohol use GENITOURINARY: Denies any blood in urine or increased urinary frequency. NEUROLOGICAL: Denies any numbness or tingling along the distal extremities. No seizure disorders or headaches. MUSCULOSKELETAL: Has back pain, stiffness or joint arthritis. SKIN: No current skin cancer. No rash. PSYCHIATRIC: Denies current depression or suicidal thoughts. ENDOCRINE: Denies current thyroid disorders. Denies any blood sugar glucose intolerance. HEME/LYMPHATIC: Denies any lumps and bumps around the neck. Past deep venous thrombosis of the leg. ALLERGY/IMMUNOLOGY: No immunoglobulin therapy. No immune deficiencies. BREAST: Denies current breast lumps, pain or nipple discharge. PHYSICAL EXAM: VITALS: Reviewed CONSTITUTIONAL: Well developed and in no acute distress. EYES: Conjuctivae without sclera icterus. Extraocular movements grossly intact. HEAD, EARS, NOSE, THROAT: Moist buccal mucosa. Head is atraumatic, normocephalic. Hears conversational speech. No nasal drainage. NECK: Supple. No JV distention. No thyroidomegaly. RESPIRATORY: Non-labored respirations and equal bilateral excursions. No gross wheezes. CARDIOVASCULAR: Palpable 2+ radial pulses. ABDOMEN: Protuberant, hernia of the lower abdomen without skin changes. No peritonitis. LYMPH: No neck lymphadenopathy. MUSCULOSKELETAL: Nail and fingers with good capillary refill. SKIN: Warm and well perfused with good skin turgor. NEUROLOGIC: Cranial nerves II through XII grossly intact. No focal or lateralizing signs. PSYCH: Appropriate affect. Alert and oriented to person, place and time. Displays appropriate insight. CLINCAL LABS: Reviewed. WBC elevated at 13.5. Potassium elevated at 5.8, hemolysis. Urinalysis positive nitrites. IMAGING: Independently reviewed. CT of the abdomen and pelvis demonstrates small bowel within incisional ventral hernia without bowel obstruction. This is my independent interpretation. RADIOLOGY: Report reviewed CT abdomen and pelvis 17 x 5 cm with small bowel. Presence of abdominal ascites. RECORDS: previous old records reviewed CT abdomen from March 2022 reviewed with incisional hernia present. This is my independent interpretation. ASSESSMENT: 1. Abdominal pain 2. History of colon cancer 3. Incisional ventral hernia with incarceration PLAN: 1. IV fluid hydration. 2. Clinically, no signs of complete bowel obstruction. May start diet. 3. Repeat CBC and CMP 4. Recommend abdominal binder ADVANCE DIRECTIVE: Thank you for this kind consultation. Past Medical History Past Medical History: Cancer, Deep Vein Thrombosis (DVT), Musculoskeletal Disorder Additional Past Medical History / Comment(s): kidney infection, colon cancer, dvt in leg, History of Any Multi-Drug Resistant Organisms: None Reported Past Surgical History: Bowel Resection, Orthopedic Surgery Additional Past Surgical History / Comment(s): allison wrist surgery 2009, colon resection Past Anesthesia/Blood Transfusion Reactions: No Reported Reaction Past Psychological History: No Psychological Hx Reported Smoking Status: Former smoker Past Alcohol Use History: Occasional Additional Past Alcohol Use History / Comment(s): drink daily rum and coke Past Drug Use History: None Reported - Past Family History Father Family Medical History: Cancer Mother Family Medical History: Vascular Disorder Medications and Allergies Home Medications Medication Instructions Recorded Confirmed Type Cholecalciferol [Vitamin D3 (25 25 mcg PO DAILY 08/17/21 08/31/22 History Mcg = 1000 Iu)] amLODIPine [Norvasc] 10 mg PO DAILY 14 Days #14 tablet 12/03/21 08/31/22 Rx Calcium Carbonate [Calcium] 600 mg PO DAILY 12/05/21 08/31/22 History Cyanocobalamin [Vitamin B-12] 500 mcg PO DAILY 12/05/21 08/31/22 History Mcdavid-3 Fatty Acids [Mcdavid-3] 1,000 mg PO DAILY 12/05/21 08/31/22 History Apixaban [Eliquis] 5 mg PO BID 08/31/22 08/31/22 History Ferrous Sulfate [Feosol] 325 mg PO DAILY 08/31/22 08/31/22 History Allergies Allergy/AdvReac Type Severity Reaction Status Date / Time No Known Allergies Allergy Verified 08/31/22 12:27 Surgical - Exam Vital Signs Temp Pulse Resp BP Pulse Ox 98 F 93 16 153/93 98 08/30/22 20:43 08/30/22 20:43 08/30/22 20:43 08/30/22 20:43 08/30/22 20:43 Results - Labs 08/30/22 21:53 08/30/22 21:53 Abnormal Lab Results - Last 24 Hours (Table) 08/30/22 08/31/22 Range/Units 21:53 01:10 Sodium 136 L (137-145) mmol/L Potassium 5.8 H (3.5-5.1) mmol/L BUN 18 H (7-17) mg/dL Glucose 116 H (74-99) mg/dL AST 49 H (14-36) U/L Alkaline Phosphatase 303 H (38-126) U/L Total Protein 8.5 H (6.3-8.2) g/dL Urine Appearance Cloudy H (Clear) Urine Protein Trace H (Negative) Urine Blood Large H (Negative) Urine Nitrite Positive H (Negative) Ur Leukocyte Esterase Large H (Negative) Urine RBC 69 H (0-5) /hpf Urine WBC 45 H (0-5) /hpf Ur Squamous Epith Cells 5 H (0-4) /hpf Amorphous Sediment Rare H (None) /hpf Urine Bacteria Occasional H (None) /hpf Urine Mucus Rare H (None) /hpf Diabetes panel 08/30/22 Range/Units 21:53 Sodium 136 L (137-145) mmol/L Potassium 5.8 H (3.5-5.1) mmol/L Chloride 102 (98-107) mmol/L Carbon Dioxide 26 (22-30) mmol/L BUN 18 H (7-17) mg/dL Creatinine 0.58 (0.52-1.04) mg/dL Glucose 116 H (74-99) mg/dL Calcium 9.3 (8.4-10.2) mg/dL AST 49 H (14-36) U/L ALT 23 (4-34) U/L Alkaline Phosphatase 303 H (38-126) U/L Total Protein 8.5 H (6.3-8.2) g/dL Albumin 4.5 (3.5-5.0) g/dL Calcium panel 08/30/22 Range/Units 21:53 Calcium 9.3 (8.4-10.2) mg/dL Albumin 4.5 (3.5-5.0) g/dL Pituitary panel 08/30/22 Range/Units 21:53 Sodium 136 L (137-145) mmol/L Potassium 5.8 H (3.5-5.1) mmol/L Chloride 102 (98-107) mmol/L Carbon Dioxide 26 (22-30) mmol/L BUN 18 H (7-17) mg/dL Creatinine 0.58 (0.52-1.04) mg/dL Glucose 116 H (74-99) mg/dL Calcium 9.3 (8.4-10.2) mg/dL Adrenal panel 08/30/22 Range/Units 21:53 Sodium 136 L (137-145) mmol/L Potassium 5.8 H (3.5-5.1) mmol/L Chloride 102 (98-107) mmol/L Carbon Dioxide 26 (22-30) mmol/L BUN 18 H (7-17) mg/dL Creatinine 0.58 (0.52-1.04) mg/dL Glucose 116 H (74-99) mg/dL Calcium 9.3 (8.4-10.2) mg/dL Total Bilirubin 1.0 (0.2-1.3) mg/dL AST 49 H (14-36) U/L ALT 23 (4-34) U/L Alkaline Phosphatase 303 H (38-126) U/L Total Protein 8.5 H (6.3-8.2) g/dL Albumin 4.5 (3.5-5.0) g/dL
[2022-09-01] MEDS: SODIUM CHLORIDE 0.9% 1,000 ML IV SCH ×2 (08:39→08:45)
[2022-09-01 10:34] VITALS: BP 168/77; PULSE 79; RESP 18; TEMP 97.6
--- NOTE | 2022-09-01 10:44 | P.DS ---
Providers Date of admission: 08/31/22 00:11 Expected date of discharge: 09/01/22 Attending physician: Silvia Pimentel Primary care physician: Derick Strong MD Hospital Course: Discharge diagnosis 1. Incisional ventral hernia with incarceration 2. Abdominal pain 3. History of colon cancer Hospital course The patient is a 62 year old female who comes in with swelling of the lower abdomen including increasing abdominal pain for over 2-3 months. Patient has significant history for colon cancer diagnosed one year ago with a left hemicolectomy performed by Dr. Bosch. Patient had port placement in November 2021. Computed tomography scan of the pelvis shows large incarcerated ventral hernia containing small bowel. No definite sign of mechanical bowel obstruction. Patient's hernia was reduced in the ER by ER physician. Since then patient is having gas and bowel movement. Denies any nausea vomiting. Denies abdominal pain. She has tolerated regular diet. She is afebrile. She is for discharge. Physician Ring Stamper note has been reviewed by physician. Signing provider agrees with the documented findings, assessment, and plan of care. Patient Condition at Discharge: Stable Plan - Discharge Summary Discharge Rx Participant: Yes New Discharge Prescriptions: Continue amLODIPine [Norvasc] 10 mg PO DAILY 14 Days #14 tablet Cyanocobalamin [Vitamin B-12] 500 mcg PO DAILY Calcium Carbonate [Calcium] 600 mg PO DAILY Apixaban [Eliquis] 5 mg PO BID Ferrous Sulfate [Iron (65 MG Elemental)] 325 mg PO DAILY Cholecalciferol [Vitamin D3 (25 Mcg = 1000 Iu)] 25 mcg PO DAILY Kiana-3 Fatty Acids [Kiana-3] 1,000 mg PO DAILY Discharge Medication List Cholecalciferol [Vitamin D3 (25 Mcg = 1000 Iu)] 25 mcg PO DAILY 08/17/21 [History] amLODIPine [Norvasc] 10 mg PO DAILY 14 Days #14 tablet 12/03/21 [Rx] Calcium Carbonate [Calcium] 600 mg PO DAILY 12/05/21 [History] Cyanocobalamin [Vitamin B-12] 500 mcg PO DAILY 12/05/21 [History] [place]iana-3 Fatty Acids [[place]-3] 1,000 mg PO DAILY 12/05/21 [History] Apixaban [Eliquis] 5 mg PO BID 08/31/22 [History] Ferrous Sulfate [Iron (65 MG Elemental)] 325 mg PO DAILY 08/31/22 [History] Follow up Appointment(s)/Referral(s): Derick Strong MD [Primary Care Provider] - 1-2 days Yahir Bosch MD [Medical Doctor] - 1 Week Patient Instructions/Handouts: Abdominal Pain (ED) Discharge Disposition: HOME SELF-CARE
[2022-09-01] MEDS ORDERED: amLODIPine 10 MG TAB PO SCH (10:45)
== END 2022-09-01 13:14 | disposition home or self-care (01) | DRG 395 ==
LOC: EC 20:21 → 4SSUR 08-31 00:11
PROVIDERS: ADMIT Surgery Plastic and Reconstructive Surgery; ATTEND Surgery Plastic and Reconstructive Surgery
DX: K43.0 Incisional hernia with obstruction, without gangrene (principal); K59.00 Constipation, unspecified; E66.9 Obesity, unspecified; Z28.310 Unvaccinated for COVID-19; Z68.34 Body mass index [BMI] 34.0-34.9, adult; Z79.01 Long term (current) use of anticoagulants; Z79.899 Other long term (current) drug therapy; Z87.891 Personal history of nicotine dependence; Z85.038 Personal history of other malignant neoplasm of large intestine; Z86.718 Personal history of other venous thrombosis and embolism; Z87.440 Personal history of urinary (tract) infections
CPT/HCPCS: 36415; 74177; 80053; 81001; 82150; 83605; 83690; 85025; 99285

== ENCOUNTER 2022-09-28 16:15 | Emergency (ER) | payer OTHER ==
[2022-09-28] MEDS ORDERED: ONDANSETRON 4 MG/2 ML VIAL IVP STA (17:29)
[2022-09-28] MEDS ORDERED: SODIUM CHLORIDE 0.9% 1,000 ML IV STA (17:29)
[2022-09-28] MEDS ORDERED: MORPHINE SULFATE 4 MG/ML SYRINGE IV STA ×2 (17:29→19:29)
--- NOTE | 2022-09-28 17:32 | ED ---
Abdominal Pain HPI - General Chief Complaint: Abdominal Pain Stated Complaint: hernia/pain Time Seen by Provider: 09/28/22 17:22 Source: patient, RN notes reviewed Mode of arrival: ambulatory Limitations: no limitations - History of Present Illness Initial Comments: This is a pleasant 62-year-old female with a history of colon cancer. Patient had surgery last year by Dr. Bosch. Patient was recently seen here for a ventral hernia. Patient was admitted and saw the on-call surgeon. Patient has an appointment this for surgical evaluation. She states that she started having increased pain to her abdominal area where the hernia is located. Pain was much worse today. She described a dull pain which is exacerbated by movement and palpation. Patient denying any nausea or vomiting. Denies any changes in bowel movements urination. No fever or chills. Apparently the patient had the hernia reduced here in the ER last time. Patient took [id number] ibuprofen at home for pain control. Patient was also noted to have a urinary tract infection on her last visit on August 31. No history of diabetes or immunosuppression. No headache, no fever or chills, no changes in vision or hearing, no sore throat or difficulty with speech, no neck pain, no chest pain or shortness of breath,, no nausea or vomiting, no changes in urination or bowel movements, no numbness or tingling, no extremity pain, no skin rashes or lesions. Past medical, surgical, social, and family history reviewed. MD Complaint: abdominal pain - Related Data Home Medications Medication Instructions Recorded Confirmed Cholecalciferol [Vitamin D3 (25 25 mcg PO DAILY 08/17/21 08/31/22 Mcg = 1000 Iu)] Calcium Carbonate [Calcium] 600 mg PO DAILY 12/05/21 08/31/22 Cyanocobalamin [Vitamin B-12] 500 mcg PO DAILY 12/05/21 08/31/22 [place]-3 Fatty Acids [[place]-3] 1,000 mg PO DAILY 12/05/21 08/31/22 Apixaban [Eliquis] 5 mg PO BID 08/31/22 08/31/22 Ferrous Sulfate [Iron (65 MG 325 mg PO DAILY 08/31/22 08/31/22 Elemental)] Previous Rx's Medication Instructions Recorded amLODIPine [Norvasc] 10 mg PO DAILY 14 Days #14 tablet 02/15/22 Nitrofurantoin Monohyd/M-Cryst 100 mg PO Q12HR #14 cap 09/28/22 [Macrobid] Allergies Allergy/AdvReac Type Severity Reaction Status Date / Time No Known Allergies Allergy Verified 09/28/22 16:25 Review of Systems ROS Statement: Those systems with pertinent positive or pertinent negative responses have been documented in the HPI. ROS Other: All systems not noted in ROS Statement are negative. Past Medical History Past Medical History: Cancer, Deep Vein Thrombosis (DVT), Musculoskeletal Disorder Additional Past Medical History / Comment(s): kidney infection, colon cancer, dvt in leg, History of Any Multi-Drug Resistant Organisms: None Reported Past Surgical History: Bowel Resection, Orthopedic Surgery Additional Past Surgical History / Comment(s): allison wrist surgery 2009, colon resection Past Anesthesia/Blood Transfusion Reactions: No Reported Reaction Past Psychological History: No Psychological Hx Reported Smoking Status: Former smoker Past Alcohol Use History: Occasional Past Drug Use History: None Reported - Past Family History Father Family Medical History: Cancer Mother Family Medical History: Vascular Disorder General Exam Limitations: no limitations General appearance: alert, in no apparent distress Head exam: Present: atraumatic, normocephalic, normal inspection Eye exam: Present: normal appearance, PERRL, EOMI. Absent: scleral icterus, conjunctival injection, periorbital swelling ENT exam: Present: normal exam, normal oropharynx, mucous membranes moist, normal external ear exam. Absent: mucous membranes dry Neck exam: Present: normal inspection, full ROM. Absent: tenderness, meningismus, lymphadenopathy Respiratory exam: Present: normal lung sounds bilaterally. Absent: respiratory distress, wheezes, rales, rhonchi, stridor Cardiovascular Exam: Present: regular rate, normal rhythm, normal heart sounds. Absent: systolic murmur, diastolic murmur, rubs, gallop, clicks GI/Abdominal exam: Present: soft, distended, tenderness, normal bowel sounds, hernia (Patient has what appears to be an incarcerated ventral hernia. The patient is tender to this area. There is no break in skin integrity. No erythema.). Absent: guarding, rebound, rigid Extremities exam: Present: normal inspection, full ROM, normal capillary refill. Absent: tenderness, pedal edema, joint swelling, calf tenderness Back exam: Present: normal inspection Neurological exam: Present: alert, oriented X3, CN II-XII intact Psychiatric exam: Present: normal affect, normal mood Skin exam: Present: warm, dry, intact, normal color. Absent: rash Course Vital Signs 09/28/22 09/28/22 16:20 21:43 Temperature 98.0 F Pulse Rate 87 67 Respiratory 20 18 Rate Blood Pressure 153/93 159/93 O2 Sat by Pulse 96 94 L Oximetry - Reevaluation(s) Reevaluation #1: 09/28/22 20:14 Medical record is reviewed Symptoms are improved here in the emergency department Patient is informed of results and questions answered Patient in no distress Reevaluation #2: 09/28/22 20:42 Medical record is reviewed Symptoms are improved here in the emergency department Patient is informed of results and questions answered Patient in no distress Only waiting for urinalysis - Consultations Consultation #1: Call placed for the on-call surgeon. We'll discuss the case. Consultation #2: Case was discussed in detail with the on-call surgeon, Dr. Hampton, who states the patient can follow-up in the office. Procedures - Procedures Initial comment: Patient was given an additional 4 mg of morphine IV push, 1 mg of Versed IV push. Patient was placed in supine position. Large ventral hernia was reduced through manual manipulation by myself. Patient tolerated well. Medical Decision Making - Medical Decision Making Differential diagnosis, incarcerated hernia, bowel obstruction, other infectious intra-abdominal etiology or inflammatory intra-abdominal etiology. Does not appear to be consistent with cardiopulmonary disease. Abdominal workup to include CBC, lactic acid, CMP, urinalysis, computed tomography scan without contrast ordered. We'll obtain a 1 view chest x-ray as well. Pain medication and IV fluids. Patient does not appear to be ill or toxic. CBC shows an elevated white blood cell count 11,700. Neutrophils 8500. Normal otherwise. CMP shows a BUN of 24. Normal creatinine. Alkaline phosphatase 259. Otherwise unremarkable. Lactic acid is normal. Ventral hernia was reduced without difficulty. I'll discuss the case with the on-call surgeon. Note that the patient and have driven down from [place] and have an appointment on with the surgeon. Patient's urinalysis does show a significant number of white blood cells per high-powered field as well as a positive nitrite and many bacteria. We'll treat accordingly with antibiotics. There is no urine culture to refer to. Patient stable at discharge. No distress. Patient feels well enough to be discharged. Patient will follow up with her general surgeon on as planned. Patient was told to return to the ER for any signs or symptoms worsen. Told to return immediately if any other problems arise. All questions answered. Treatment plan discussed. Patient in agreement Every effort has been made to ensure accuracy of this dictation. However, due to the limitations of electronic medical records and dictation devices, errors in charting still occur. Supervising physician Dr. Roe - Lab Data Result diagrams: 09/28/22 17:50 09/28/22 19:21 Lab Results 09/28/22 09/28/22 09/28/22 Range/Units 17:50 17:50 19:21 WBC 11.7 H (3.8-10.6) k/uL RBC 4.80 (3.80-5.40) m/uL Hgb 14.2 (11.4-16.0) gm/dL Hct 42.6 (34.0-46.0) % MCV 88.7 (80.0-100.0) fL MCH 29.5 (25.0-35.0) pg MCHC 33.3 (31.0-37.0) g/dL RDW 13.9 (11.5-15.5) % Plt Count 407 (150-450) k/uL MPV 7.8 Neutrophils % 73 % Lymphocytes % 20 % Monocytes % 5 % Eosinophils % 1 % Basophils % 0 % Neutrophils # 8.5 H (1.3-7.7) k/uL Lymphocytes # 2.3 (1.0-4.8) k/uL Monocytes # 0.5 (0-1.0) k/uL Eosinophils # 0.2 (0-0.7) k/uL Basophils # 0.1 (0-0.2) k/uL Hypochromasia Slight Sodium 139 (137-145) mmol/L Potassium 3.7 (3.5-5.1) mmol/L Chloride 104 (98-107) mmol/L Carbon Dioxide 28 (22-30) mmol/L Anion Gap 7 mmol/L BUN 24 H (7-17) mg/dL Creatinine 0.63 (0.52-1.04) mg/dL Est GFR (CKD-EPI)AfAm >90 (>60 ml/min/1.73 sqM) Est GFR (CKD-EPI)NonAf >90 (>60 ml/min/1.73 sqM) Glucose 100 H (74-99) mg/dL Plasma Lactic Acid Ivan 0.9 (0.7-2.0) mmol/L Calcium 9.3 (8.4-10.2) mg/dL Total Bilirubin 0.5 (0.2-1.3) mg/dL AST 24 (14-36) U/L ALT 20 (4-34) U/L Alkaline Phosphatase 259 H (38-126) U/L Total Protein 7.0 (6.3-8.2) g/dL Albumin 3.7 (3.5-5.0) g/dL Lipase 66 (23-300) U/L Urine Color Urine Appearance (Clear) Urine pH (5.0-8.0) Ur Specific [place] (1.001-1.035) Urine Protein (Negative) Urine Glucose (UA) (Negative) Urine Ketones (Negative) Urine Blood (Negative) Urine Nitrite (Negative) Urine Bilirubin (Negative) Urine Urobilinogen (<2.0) mg/dL Ur Leukocyte Esterase (Negative) Urine RBC (0-5) /hpf Urine WBC (0-5) /hpf Urine Bacteria (None) /hpf Urine Mucus (None) /hpf 09/28/22 Range/Units 22:32 WBC (3.8-10.6) k/uL RBC (3.80-5.40) m/uL Hgb (11.4-16.0) gm/dL Hct (34.0-46.0) % MCV (80.0-100.0) fL MCH (25.0-35.0) pg MCHC (31.0-37.0) g/dL RDW (11.5-15.5) % Plt Count (150-450) k/uL MPV Neutrophils % % Lymphocytes % % Monocytes % % Eosinophils % % Basophils % % Neutrophils # (1.3-7.7) k/uL Lymphocytes # (1.0-4.8) k/uL Monocytes # (0-1.0) k/uL Eosinophils # (0-0.7) k/uL Basophils # (0-0.2) k/uL Hypochromasia Sodium (137-145) mmol/L Potassium (3.5-5.1) mmol/L Chloride (98-107) mmol/L Carbon Dioxide (22-30) mmol/L Anion Gap mmol/L BUN (7-17) mg/dL Creatinine (0.52-1.04) mg/dL Est GFR (CKD-EPI)AfAm (>60 ml/min/1.73 sqM) Est GFR (CKD-EPI)NonAf (>60 ml/min/1.73 sqM) Glucose (74-99) mg/dL Plasma Lactic Acid Ivan (0.7-2.0) mmol/L Calcium (8.4-10.2) mg/dL Total Bilirubin (0.2-1.3) mg/dL AST (14-36) U/L ALT (4-34) U/L Alkaline Phosphatase (38-126) U/L Total Protein (6.3-8.2) g/dL Albumin (3.5-5.0) g/dL Lipase (23-300) U/L Urine Color Yellow Urine Appearance Clear (Clear) Urine pH 5.5 (5.0-8.0) Ur Specific [place] 1.019 (1.001-1.035) Urine Protein Negative (Negative) Urine Glucose (UA) Negative (Negative) Urine Ketones Negative (Negative) Urine Blood Negative (Negative) Urine Nitrite Positive H (Negative) Urine Bilirubin Negative (Negative) Urine Urobilinogen <2.0 (<2.0) mg/dL Ur Leukocyte Esterase Small H (Negative) Urine RBC <1 (0-5) /hpf Urine WBC 12 H (0-5) /hpf Urine Bacteria Many H (None) /hpf Urine Mucus Moderate H (None) /hpf - Radiology Data Radiology results: pending, report reviewed, image reviewed Independent interpretation of the abdominal pelvis computed tomography scan by me reveals a large incarcerated ventral hernia. Awaiting radiology interpretation. No evidence of obstruction by my read. One view chest x-ray independently interpreted by me reveals poor inspiration. Otherwise no acute findings. Radiology interpretation pending. Disposition Clinical Impression: Ventral hernia without obstruction or gangrene, Urinary tract infection Disposition: HOME SELF-CARE Condition: Good Instructions (If sedation given, give patient instructions): Urinary Tract Infection in Women (ED), Ventral Hernia (ED) Additional Instructions: Take the antibiotics as directed. Also take an [id number] stool softener such as Colace as directed on the bottle. Do not partake in any heavy lifting. Symptomatically hydrated. Continue with the follow-up appointment with your surgeon as planned. Follow-up with your regular physician as directed. Return to the ER immediately if any symptoms worsen, new symptoms arise, or any other problems develop. Prescriptions: Nitrofurantoin Monohyd/M-Cryst [Macrobid] 100 mg PO Q12HR #14 cap Is patient prescribed a controlled substance at d/c from ED?: No Referrals: Yahir Bosch MD [Medical Doctor] - As Soon As Possible Time of Disposition: 23:08
[2022-09-28 18:58] LABS: Basophils # (A) 0.1 k/uL (0-0.2); Basophils % (A) 0 %; Eosinophils # (A) 0.2 k/uL (0-0.7); Eosinophils % (A) 1 %; HCT 42.6 % (34.0-46.0); HGB 14.2 gm/dL (11.4-16.0); Hypochromasia Slight; Lymphocytes # (A) 2.3 k/uL (1.0-4.8); Lymphocytes % (A) 20 %; MCH 29.5 pg (25.0-35.0); MCHC 33.3 g/dL (31.0-37.0); MCV 88.7 fL (80.0-100.0); Mean Platelet Volume 7.8; Monocytes # (A) 0.5 k/uL (0-1.0); Monocytes % (A) 5 %; Neutrophils # (A) 8.5 k/uL (1.3-7.7); Neutrophils % (A) 73 %; Platelet Count 407 k/uL (150-450); RDW 13.9 % (11.5-15.5); WBC 11.7 k/uL (3.8-10.6)
[2022-09-28] MEDS ORDERED: MIDAZOLAM 1 MG/ML 5 ML VIAL IV STA (19:29)
--- NOTE | 2022-09-28 19:41 | CT ---
EXAMINATION TYPE: CT abdomen pelvis wo con CT DLP: 1004.7 mGycm, Automated exposure control for dose reduction was used. DATE OF EXAM: 09/28/2022 7:11 PM COMPARISON: CT abdomen pelvis 08/30/2022, MRI liver 04/25/2022, pelvic ultrasound 04/24/2022, CT abdomen pelvis 04/15/2022 CLINICAL INDICATION:Female, 62 years old with history of abdominal pain/Ventral hernia; abdominal víctor n, possible hernia TECHNIQUE: Axial CT of the abdomen and pelvis. Sagittal and coronal reformats were created on a [employer] workstation. Contrast used: None Oral contrast used: without Oral Contrast FINDINGS: LOWER CHEST: Posterior dependent subsegmental atelectasis is noted. ABDOMEN LIVER: Unremarkable GALLBLADDER AND BILE DUCTS: Gallbladder is absent. Intrahepatic ductal dilatation within the left hep atic lobe, similar to prior MRI. PANCREAS: Unremarkable. SPLEEN: Unremarkable. ADRENAL GLANDS: Unremarkable. KIDNEYS AND URETERS: No evidence of hydronephrosis or renal calculus. The ureters are unremarkable. B ilateral renal cysts. PELVIS BLADDER: Unremarkable REPRODUCTIVE: Markedly thickened endometrium. Similar to prior examinations. ABDOMEN & PELVIS STOMACH AND BOWEL: Small hiatal hernia. Stomach is normal in appearance. Postsurgical changes to the distal small bowel. Large bowel containing ventral abdominal hernia without evidence for obstruction. Similar focal dilatation of the descending colonic bowel at site of prior anastomoses (series 202, i mage 57). PERITONEUM: No evidence for pneumoperitoneum. Small volume of ascites within the abdomen. VASCULATURE: Moderate atherosclerotic calcifications are present throughout the abdominal aorta and i ts branches. No evidence of aortic aneurysm. MUSCULOSKELETAL: Degenerative changes of the lumbar spine. No acute osseous abnormalities. LYMPH NODES: No gross evidence for lymphadenopathy. SOFT TISSUE/ABDOMINAL WALL: Postsurgical changes to the midline anterior abdominal wall. Large ventra l abdominal wall hernia containing nondilated bowel and trace ascites. Dominant wall defect measures proximally 8.0 cm in craniocaudal dimension (series 203, image 70). IMPRESSION: 1. Large bowel containing ventral abdominal wall hernia. No findings to suggest mechanical obstructi on. 2. Small volume of abdominal ascites. 3. Similar marked thickening of the endometrium, continued recommend direct visualization if not alre chet performed. 4. Additional incidental findings as detailed above.
[2022-09-28 19:45] LABS: ALT 20 U/L (4-34); AST 24 U/L (14-36); African American GFR (CKD) >90 (>60 ml/min/1.73 sqM); Albumin 3.7 g/dL (3.5-5.0); Alkaline Phosphatase 259 U/L (38-126); Anion Gap 7 mmol/L; Blood Urea Nitrogen 24 mg/dL (7-17); Calcium 9.3 mg/dL (8.4-10.2); Carbon Dioxide 28 mmol/L (22-30); Chloride 104 mmol/L (98-107); Glucose 100 mg/dL (74-99); Lipase 66 U/L (23-300); Non-African American GFR(CKD) >90 (>60 ml/min/1.73 sqM); Potassium 3.7 mmol/L (3.5-5.1); Sodium 139 mmol/L (137-145); Total Bilirubin 0.5 mg/dL (0.2-1.3)
--- NOTE | 2022-09-28 20:38 | XR ---
EXAMINATION TYPE: XR chest 1V portable DATE OF EXAM: 09/28/2022 7:11 PM COMPARISON: Chest x-ray 12/06/2021 TECHNIQUE: XR chest 1V portable . CLINICAL INDICATION:Female, 62 years old with history of abdominal pain; FINDINGS: Lungs/Pleura: Low lung volumes are present. There is no evidence of pleural effusion, focal consolida tion, or pneumothorax. Bibasilar subsegmental atelectasis. Pulmonary vascularity: Unremarkable. Heart/mediastinum: Cardiomediastinal silhouette is unremarkable. Atherosclerotic calcifications are seen in the aorta. Musculoskeletal: No acute osseous pathology. Other findings: None Lines/Tubes: Right-sided port catheter in place with distal tip in the near cavoatrial junction. IMPRESSION: No acute cardiopulmonary process.
[2022-09-28] MEDS ORDERED: SODIUM CHLORIDE 0.9% 500 ML 500 ML IV ONE (20:42)
[2022-09-28 23:00] LABS: Appearance,Urine Clear (Clear); Bacteria,Urine Many /hpf; Bilirubin,Urine Negative (Negative); Blood,Urine Negative (Negative); Color,Urine Yellow; Glucose,Urine (UA) Negative (Negative); Ketones,Urine Negative (Negative); Leukocyte Esterase,Urine Small (Negative); Mucus,Urine Moderate /hpf; Nitrite,Urine Positive (Negative); PH, Urine 5.5 (5.0-8.0); Protein,Urine Negative (Negative); RBC,Urine <1 /hpf (0-5); Specific Gravity,Urine 1.019 (1.001-1.035); Urobilinogen,Urine <2.0 mg/dL (<2.0); WBC,Urine 12 /hpf (0-5)
[2022-09-28] MEDS ORDERED: NITROFURANTOIN MONOHYD/M-CRYST 100 MG CAP PO STA (23:06)
[2022-09-28 23:36] VITALS: BP 137/84; PULSE 69; RESP 15; TEMP 98.4
== END 2022-09-28 23:35 | disposition home or self-care (01) ==
LOC: EC 16:15
DX: K43.9 Ventral hernia without obstruction or gangrene (principal); N39.0 Urinary tract infection, site not specified; R18.8 Other ascites; Z87.891 Personal history of nicotine dependence
CPT/HCPCS: 36415; 80053; 83605; 83690; 85025; 81001; 87086; 71045; 74176; 99285; 96374; 96375 ×2; 96376; 96361 ×4; J2270; J2405; J2250

== ENCOUNTER → 2022-09-30 | Outpatient (CLI) | payer OTHER ==
--- NOTE | 2022-09-30 09:28 | MM ---
Reason for Exam: Follow-up at short interval from prior study. Last screening mammogram was performed 7 month(s) ago. Patient History: Menarche at age 10. First Full-Term at age 16. Postmenopausal. Colorectal cancer, age 61. Risk Values: Zakiya 5 year model risk: 1.2%. NCI Lifetime model risk: 5.3%. Prior Study Comparison: 02/26/2022 Bilateral Screening Mammogram, [facility]. 03/05/2022 Right MG work up mamm w CAD RT, [facility]. Tissue Density: The breast tissue is heterogeneously dense. This may lower the sensitivity of mammography. Findings: Analyzed By CAD. Stable benign calcifications seen bilaterally. No evidence for mass or distortion. Overall Assessment: Benign, BI-RAD 2 Management: Screening Mammogram of both breasts in 1 year. A clinical breast exam by your physician is recommended on an annual basis and results should be correlated with mammographic findings. This exam should not preclude additional follow-up of suspicious palpable abnormalities. Results were given to the patient verbally at the time of exam. Electronically signed and approved by: Jason Cooper M.D. Radiologis
[2022-09-30 11:18] LABS: African American GFR (CKD) >90 (>60 ml/min/1.73 sqM); Blood Urea Nitrogen 14 mg/dL (7-17); Non-African American GFR(CKD) >90 (>60 ml/min/1.73 sqM)
--- NOTE | 2022-09-30 12:25 | CT ---
EXAMINATION TYPE: CT abdomen pelvis w con DATE OF EXAM: 09/30/2022 HISTORY: Follow up for colon cancer. Personal history of breast cancer. CT DLP: 2049mGycm Automated Exposure Control for Dose Reduction was Utilized. CONTRAST: CT scan of the abdomen and pelvis is performed with oral and with IV Contrast, patient injected with 70ml mL of Isovue 300. COMPARISON: Prior CT 2 days ago and older studies. FINDINGS: LUNG BASES: Mild to moderate bibasilar linear scarring and/or atelectasis is redemonstrated. Coronary artery calcification is again seen. LIVER/GB: Overall heterogeneity with subtle subcentimeter hypodense lesions that are too small to fur ther characterize. Persistent focal mild to moderate biliary dilatation involving the periphery anter ior left hepatic lobe and portion of the posterior aspect right hepatic lobe to a lesser degree. No e xtrahepatic biliary dilatation. Adjacent ascites redemonstrated. PANCREAS: No significant abnormality is seen. SPLEEN: No significant abnormality is seen. ADRENALS: Stable 1.3 x 0.9 cm right adrenal mass favor a benign adenoma given small size. KIDNEYS: There is a 1.8 cm simple appearing thin-walled cyst in the left kidney laterally midpole lev el axial image 39. BOWEL: Surgical sutures in the stomach are redemonstrated. Oral contrast reaches level of the transve rse colon. No suspicious small bowel dilatation. Surgical sutures left lower quadrant into the upper pelvis again seen. Focal fecal prominence at this level redemonstrated. UTERUS/ADNEXA: Anteverted uterus with central hypodense prominence redemonstrated. Probable thickened endometrium worrisome for neoplasm redemonstrated. LYMPH NODES: No greater than 1cm abdominal or pelvic lymph nodes are appreciated. OSSEOUS STRUCTURES: Osseous structures are demineralized. Slight underlying scoliosis redemonstrated. OTHER: Persistent [place] ventral wall hernia containing nondilated small bowel loops. Some intra-a bdominal ascites to hernia is redemonstrated. Small to moderate amount of intra-abdominal ascites aga in seen similar to prior. Moderate amount of free fluid in the pelvis appear slightly less prominent versus prior. IMPRESSION: Intra-abdominal ascites redemonstrated. Persistent ventral wall hernia containing nonobst ructed small bowel loop. No bowel obstruction. Persistent focal fecal prominence of surgical sutures proximal sigmoid colon level. Persistent suspicious uterus worrisome for endometrial cancer. Nonspeci fic liver findings. No significant change from 2 days earlier.
== END | disposition home or self-care (01) ==
LOC: RADMAMWWP 08:54
PROVIDERS: ATTEND Internal Medicine Hematology & Oncology
DX: C18.7 Malignant neoplasm of sigmoid colon (principal); K44.9 Diaphragmatic hernia without obstruction or gangrene; R19.5 Other fecal abnormalities; R18.8 Other ascites; Z85.3 Personal history of malignant neoplasm of breast; Z78.0 Asymptomatic menopausal state
CPT/HCPCS: 82565; 84520; 77066; 77062; 74177; 36415; J1642; Q9967

== ENCOUNTER 2022-10-06 08:10 | Day surgery (SDC) | payer OTHER ==
[2022-10-06 08:40] VITALS: RESP 16; TEMP 97.7
[2022-10-06 08:44] LABS: Mean Platelet Volume 7.5; Platelet Count 312 k/uL (150-450)
[2022-10-06 08:50] LABS: Prothrombin Time 10.6 sec (9.0-12.0)
[2022-10-06 08:52] LABS: African American GFR (CKD) >90 (>60 ml/min/1.73 sqM); Non-African American GFR(CKD) >90 (>60 ml/min/1.73 sqM)
[2022-10-06 09:44] VITALS: PULSE 63
[2022-10-06 09:58] VITALS: BP 136/73
--- NOTE | 2022-10-06 11:55 | US ---
Ultrasound-guided paracentesis. DATE OF EXAM: 10/06/2022 CLINICAL HISTORY: Ascites The procedure was discussed with the patient. The risks, complications, benefits, and alternatives we re discussed and any questions were answered. Informed consent was obtained. The patient was placed s upine on the ultrasound table and prepped and draped in the usual sterile fashion. All elements of maximal barrier technique were utilized. Under ultrasound guidance, access into the right lower quadrant was obtained, via the paracentesis catheter system and direct ultrasound guidanc e. Approximately 3.1 liters of straw-colored fluid was removed. The patient was stable throughout the pr ocedure and remained stable upon discharge from Department of Radiology. IMPRESSION: Successful paracentesis under ultrasound guidance.
[2022-10-06 18:47] LABS: Appearance,BF Cloudy
== END 2022-10-06 10:13 | disposition home or self-care (01) ==
LOC: RADPROMAIN 08:10
PROVIDERS: ATTEND Surgery
DX: R18.8 Other ascites (principal); K43.2 Incisional hernia without obstruction or gangrene; I10 Essential (primary) hypertension; Z87.39 Personal history of other diseases of the musculoskeletal system and connective tissue; Z85.038 Personal history of other malignant neoplasm of large intestine; Z98.890 Other specified postprocedural states; Z87.891 Personal history of nicotine dependence; Z79.83 Long term (current) use of bisphosphonates; Z79.899 Other long term (current) drug therapy; Z79.811 Long term (current) use of aromatase inhibitors
CPT/HCPCS: 89050; 82565; 85049; 85610; 87070; 87205; 87075; 49083; J1642

== ENCOUNTER → 2022-10-31 | Outpatient (CLI) | payer OTHER ==
--- NOTE | 2022-11-02 10:35 | PE ---
EXAMINATION TYPE: PET CT fusion skull to thigh DATE OF EXAM: 10/31/2022 CLINICAL INDICATION:Female, 62 years old with history of C18.9 MALIGNANT NEOPLASM OF COLON, UNSPECIFI ED; TECHNIQUE: Following the intravenous administration of 10.6 mCi of F-18 FDG, whole body images are performed from the skull base to the midthigh. Images are reviewed on the computer in the coronal, a xial, and sagittal planes. Reconstructed rotating images are created on independent workstation and reviewed on the computer. A non-contrast CT is performed in conjunction with the PET scan. Glucose level 97 mg/dL COMPARISON: CT most recent 09/30/2022, PET/CT None, FINDINGS: Mediastinal SUV mean is 2.3. Hepatic parenchyma SUV mean is 2.4. SKULL BASE AND NECK: No suspicious radiotracer activity. CHEST, MEDIASTINUM, AND HILAR REGION: No suspicious radiotracer activity. ABDOMEN AND PELVIS: Focal radiotracer uptake within left hepatic lobe max SUV 7.4 Abnormal FDG activity within the uterus max SUV 18.6. Scattered fluid within abdomen and some omental irregular densities suggest scattered throughout the omentum. OSSEOUS STRUCTURES: No suspicious radiotracer activity. OTHER CT: Atherosclerosis of the arterial vasculature. Right chest wall [id number] with distal tip in superior vena cava. Mild to moderate coronary artery atherosclerosis. Aortic valve leaflet calcif ications. Moderate hiatal hernia. Small to moderate ascites. Intra-abdominal wall hernia containing l oops is bowel and ascites. No evidence of obstruction. Left lower quadrant bowel surgical changes. Hy podense area within the uterine endometrium measuring up to 4.5 x 4.2 cm. Right fat-containing inguin al hernia. IMPRESSION: 1. Abnormal FDG activity within the uterus which most consistent with endometrial carcinoma. Given a scites and irregularity to the omentum, omental carcinomatosis not entirely excluded. 2. Focal uptake within the liver which is indeterminate but suspicious. Poorly visualized on noncont rast CT and was present on prior MRI on 09/30/2022. Some curvilinear low density is seen in this abelino on on CT. This is new from 08/20/2021 and first present on 04/07/2022.
== END | disposition home or self-care (01) ==
LOC: RADPETMAIN 15:26
PROVIDERS: ATTEND Internal Medicine Hematology & Oncology
DX: C18.9 Malignant neoplasm of colon, unspecified (principal); R18.8 Other ascites; K76.89 Other specified diseases of liver; R93.89 Abnormal findings on diagnostic imaging of other specified body structures
CPT/HCPCS: 78815; A9552

== ENCOUNTER 2023-01-20 12:57 | Day surgery (SDC) | payer OTHER ==
[2023-01-20 13:38] LABS: Mean Platelet Volume 7.1; Platelet Count 381 k/uL (150-450)
[2023-01-20 13:45] LABS: Prothrombin Time 10.8 sec (9.0-12.0)
[2023-01-20 13:47] VITALS: BP 131/76; PULSE 78; RESP 16; TEMP 97.7
--- NOTE | 2023-01-20 14:50 | US ---
Ultrasound-guided paracentesis. DATE OF EXAM: 01/20/2023 CLINICAL HISTORY: Ascites Preliminary imaging demonstrated only a trace amount of free fluid. There was no sizable fluid for sa fe percutaneous drainage. IMPRESSION: Discontinued paracentesis
== END 2023-01-20 14:10 | disposition home or self-care (01) ==
LOC: RADPROMAIN 12:57
PROVIDERS: ATTEND Internal Medicine Hematology & Oncology
DX: R18.8 Other ascites (principal); Z53.9 Procedure and treatment not carried out, unspecified reason
CPT/HCPCS: 85049; 85610; 76705; J1642

== ENCOUNTER → 2023-02-10 | Outpatient (CLI) | payer OTHER ==
[2023-02-10 13:42] LABS: African American GFR (CKD) >90 (>60 ml/min/1.73 sqM); Blood Urea Nitrogen 19 mg/dL (7-17); Non-African American GFR(CKD) >90 (>60 ml/min/1.73 sqM)
--- NOTE | 2023-02-10 16:05 | CT ---
EXAMINATION TYPE: CT ChestAbdPelvis w con DATE OF EXAM: 02/10/2023 COMPARISON: 10/31/2022, 04/07/2022, 08/30/2022 HISTORY: 62-year-old female C18.9, Hx endometrial and colon ca, hernia. TECHNIQUE: Contiguous axial scanning of the chest, abdomen, and pelvis performed with IV Contrast, pa tient injected with 100 mL of Isovue 300. Delayed images through the kidneys were obtained. Coronal/s agittal reconstructions performed. CT DLP: 1494 mGycm Automated exposure control for dose reduction was used. FINDINGS: CHEST: Heart upper limits of normal size without pericardial effusion. 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 Atherosclerotic arch calcifications with very direct takeoff of the left vertebral artery directly from the aortic arch. No thoracic lymphadenopathy by CT size criteria. Areas of strandy atelectasis and scarring in the mid and lower lungs. No consolidation or pleural eff usion. ABDOMEN: There is a small hiatal hernia but with moderate abdominal ascites extending up into the lower chest across the hernia. Heterogeneous area of enhancement with underlying intrahepatic ductal dilatation in the left liver lo be measuring up to 7.9 x 7.0 cm versus 6.7 x 3.9 cm on 09/30/2022. The hypermetabolic area measure up to 5.1 x 2.5 cm on the 10/31/2022 PET/CT. We remain unable to clearly identify an underlying well-def ined mass. Second area posterior right liver lobe measuring approximately 2.1 cm now slightly better seen compar ed to 10/02/2022. Gallbladder, left adrenal gland, spleen, and pancreas show no gross abnormal value. Right adrenal nod ularity and 1.3 cm, unchanged from 08/30/2022. A benign renal cyst on either side measuring up to 2.3 cm. Redemonstrated ventral abdominal wall hernia. The hernia sac contains nonobstructed small bowel, mid transverse colon, and moderate ascites fluid measuring up to 22.1 cm wide versus 19.6 cm on 10/31/2022 . Mild to moderate abdominopelvic ascites is present. This shows slight interval decrease from 3. Scattered moderate stool. There is postsurgical change along the lower descending colon with colonic reanastomosis. No abnormal soft tissue masses seen in this location. PELVIS: Bladder urine distended. Suspect combination of fluid and abnormal soft tissue within the central uterus. Density measures 3.5 cm versus 5.0 cm, previously suggesting some possible interval improvement. Stable 3.1 cm cyst in the right adnexa, likely of ovarian origin. BONES: Moderate degenerative disc disease upper to mid lumbar spine. No osseous destructive process seen. IMPRESSION: 1. THE MIXED SOFT TISSUE AND FLUID WITHIN THE CENTRAL UTERUS MEASURES SMALLER AT 3.5 CM VERSUS 5.0 CM , PREVIOUSLY. FINDINGS SUGGEST PARTIAL TREATMENT RESPONSE. [id number]-[id number] abdominopelvic ascites al so slightly decreased in the interval. 2. The focal region of intrahepatic biliary ductal dilatation and heterogeneous density within the le ft liver lobe measures larger at 7.9 x 7.0 cm (versus 6.7 x 3.9 cm, previously). Ongoing follow-up re commended. We still are unable to clearly identify a well-demarcated mass. 3. Second area along the posterior right liver lobe measures 2.1 m and is better seen now compared to 10/02/2022. Again, ongoing follow-up recommended. Unclear if this represents progression or interval treatment change. 4. Known large ventral abdominal hernia containing ascites, nonobstructed small bowel, and a short se gment of mid transverse colon. Measuring up to 22.1 cm wide versus 19.6 cm previously.
== END | disposition home or self-care (01) ==
LOC: RADCTMAIN 12:35
PROVIDERS: ATTEND Internal Medicine Hematology & Oncology
DX: C18.9 Malignant neoplasm of colon, unspecified (principal); C54.9 Malignant neoplasm of corpus uteri, unspecified; C18.7 Malignant neoplasm of sigmoid colon; I80.10 Phlebitis and thrombophlebitis of unspecified femoral vein; K43.9 Ventral hernia without obstruction or gangrene; R18.8 Other ascites; K83.8 Other specified diseases of biliary tract
CPT/HCPCS: 82565; 84520; 71260; 74177; J1642; Q9967

== ENCOUNTER 2023-03-17 08:07 | Day surgery (SDC) | payer OTHER ==
[2023-03-17 08:46] LABS: Mean Platelet Volume 7.4; Platelet Count 360 k/uL (150-450)
[2023-03-17 08:56] LABS: Prothrombin Time 10.5 sec (9.0-12.0)
[2023-03-17 09:02] VITALS: RESP 16; TEMP 98.2
[2023-03-17] MEDS: HYDROmorphone 0.5 MG/0.5 ML SYRINGE IVP STA ×2 (09:52→10:09)
[2023-03-17] MEDS ORDERED: MICROFIBRILLAR COLLAGEN HEMOST 0.5 GM PACK TOPICAL ONE (10:42)
--- NOTE | 2023-03-17 11:22 | US ---
Ultrasound liver DATE OF EXAM: 03/17/2023 CLINICAL HISTORY: Mass Limited ultrasound of the liver demonstrated heterogeneity within the left lobe of the liver. A discr ete mass was not seen with certainty. Biopsy performed with CT scan. IMPRESSION: 1. See above.
--- NOTE | 2023-03-17 11:25 | CT ---
EXAMINATION TYPE: CT biopsy liver DATE OF EXAM: 03/17/2023 COMPARISON: NONE HISTORY: Left lobe liver abnormal CAT scan and MRI with questionable mass in question for biopsy. CT DLP: 2302mGycm The procedure was explained to the patient. The risks, complications, benefits, and alternatives wer e discussed and any questions were answered. Informed consent was obtained. Patient was placed supi ne on the CT table and prepped and draped in the usual sterile fashion. All elements of maximal barrier and sterile technique utilized. Utilizing CT guidance, an 18 gauge core biopsy needle access into the left lobe of the liver was ach ieved and a single 18 gauge core sample was obtained. The patient was stable throughout the procedur e and remained stable upon discharge. IMPRESSION: 1. Successful 18 gauge core biopsy of the liver.
--- NOTE | 2023-03-17 11:36 | US ---
Ultrasound-guided paracentesis. DATE OF EXAM: 03/17/2023 CLINICAL HISTORY: Ascites The procedure was discussed with the patient. The risks, complications, benefits, and alternatives we re discussed and any questions were answered. Informed consent was obtained. The patient was placed s upine on the ultrasound table and prepped and draped in the usual sterile fashion. All elements of maximal barrier technique were utilized. Under ultrasound guidance, access into the right lower quadrant was obtained, via the paracentesis catheter system and direct ultrasound guidanc e. Approximately 0.75 liters of straw-colored fluid was removed. The patient was stable throughout the p rocedure and remained stable upon discharge from Department of Radiology. IMPRESSION: Successful paracentesis under ultrasound guidance.
[2023-03-17 18:43] VITALS: BP 151/76; PULSE 70
== END 2023-03-17 15:07 | disposition home or self-care (01) ==
LOC: RADPROMAIN 08:07
PROVIDERS: ATTEND Internal Medicine Hematology & Oncology
DX: K74.00 Hepatic fibrosis, unspecified (principal); R18.8 Other ascites
CPT/HCPCS: 85049; 85610; 88342; 88307; 88341; 96374; 76705; 49083; 47000; 77012; J1642; J1170

== ENCOUNTER → 2023-09-17 | Outpatient (CLI) | payer OTHER ==
--- NOTE | 2023-09-21 11:51 | PE ---
EXAMINATION TYPE: PET CT fusion skull to thigh DATE OF EXAM: 09/17/2023 COMPARISON: CT chest abdomen and pelvis 02/10/2023 Prior PET/CT: 10/31/2022 HISTORY: Colon cancer TECHNIQUE: Following the intravenous administration of 8.6 mCi of F-18 FDG, whole body images are pe rformed from the skull base to the midthigh. Images are reviewed on the computer in the coronal, axi al, and sagittal planes. Reconstructed rotating images are created on independent workstation and re viewed on the computer. A localization and attenuation correction CT is performed in conjunction wi th the PET scan. DLP: 829.44 mGycm SCAN: Subsequent Scan Blood glucose: 122 mg/dL Average Mediastinum SUV: 2.18 Average Liver SUV: 3.16 FINDINGS: NECK: No abnormal uptake THORAX: No abnormal uptake ABDOMEN: There is focal uptake within the liver, image 143, SUV 9.88. Early metastatic lesion should be consid ered. Additional uptake is along the gallbladder bed fossa, example image 139, SUV left of the ligamentum t eres is 9.56. This area appears diminished in size of radiotracer from the comparison although the DEJESUS V has increased from 6-10 9 over the interval. Right of the ligamentum teres this measures 7.48 and m ore posteriorly 9.1. Within the posterior right lobe liver there is increased uptake, image 127, SUV 9.41 suspicious for m etastasis. This is new. There is mild uptake within the anterior abdominal wall soft tissues with an SUV of 8.49. Postsurgica l change versus metastasis should be considered. There is an additional focus of intense uptake withi n the anterior abdominal wall, image 190, SUV 7.64. Metastasis or postsurgical change be considered. PELVIS: There is a tiny hyperintense area within the right inguinal region could be a metastatic lesi on, image 221, SUV 8.8. OSSEOUS STRUCTURES: No abnormal uptake LOCALIZATION CT: Hiatal hernia is present. Suspicious changes within the liver to correlate with the uptake is not identified. Soft tissue changes are along the anterior abdominal wall. Some fluid may b e within the pelvis. COMPARISON: Uptake within the right lobe liver is new. Uptake left of the ligamentum teres is increas ing in SUV. IMPRESSION: 1. Developing uptake within the liver discussed above suspicious for early metastatic disease. If add itional evaluation be a benefit, MRI with contrast could be performed. 2. There may be a tiny right inguinal lymph node which could be early metastatic disease.
== END | disposition home or self-care (01) ==
LOC: RADPETMAIN 09:52
PROVIDERS: ATTEND Internal Medicine Hematology & Oncology
DX: C18.8 Malignant neoplasm of overlapping sites of colon (principal)
CPT/HCPCS: 78815; A9552

== ENCOUNTER → 2024-01-13 | Outpatient (CLI) | payer OTHER ==
[2024-01-13 10:25] LABS: African American GFR (CKD) >90 (>60 ml/min/1.73 sqM); Blood Urea Nitrogen 17 mg/dL (7-17); Non-African American GFR(CKD) >90 (>60 ml/min/1.73 sqM)
--- NOTE | 2024-01-13 12:58 | CT ---
EXAMINATION TYPE: CT abdomen pelvis w con CT DLP: 1678.3 mGycm, Automated exposure control for dose reduction was used. DATE OF EXAM: 01/13/2024 11:48 AM COMPARISON: 09/17/2023 CLINICAL INDICATION:Female, 63 years old with history of C18.7 MALIGNANT NEOPLASM OF SIGMOID COLON; j aundice, right side abdomen pain TECHNIQUE: Axial CT abdomen pelvis w con;Sagittal and coronal reformats were created on a separate w orkstation. Contrast used:100 mL of Isovue 300 with IV Contrast, (none if empty) Oral contrast used: with Oral Contrast (none if empty) FINDINGS: LOWER CHEST: Borderline soft tissue density extending along the esophagus which is not FDG avid on pr ior PET/CT. Similar right epicardial fat ABDOMEN LIVER: Areas of heterogenous signal within the anterior and posterior liver in areas of heterogenous FDG activity likely representing areas of metastatic disease. Findings likely larger than prior PET/C T. GALLBLADDER AND BILE DUCTS: There is a distended gallbladder with hyperemia of the mucosa. The solorio are within normal limits for size. There is mild intrahepatic biliary dilation and scattered througho ut the liver. The common hepatic duct is dilated up to 10 mm. There is a hazy appearance of the commo n bile duct series 7 image 44 coronal imaging. Common bile duct not well appreciated to the pancreati c head. PANCREAS: Pancreatic duct in the pancreatic head not well visualized. The pancreatic main duct is not dilated. SPLEEN: Unremarkable. ADRENAL GLANDS: Unremarkable. KIDNEYS AND URETERS: No evidence of hydronephrosis or renal calculus. The ureters are unremarkable. Simple appearing left renal cyst. PELVIS BLADDER: Unremarkable REPRODUCTIVE: Unremarkable. ABDOMEN & PELVIS STOMACH AND BOWEL: There is a moderate amount of stool throughout the colon. Large suspected fluid co llection in the pelvis again is redemonstrated which was not FDG avid. The anastomotic site of the le ft colon demonstrates more focal increased stool burden. This is similar prior PET/CT. PERITONEUM/RETROPERITONEUM: No evidence of pneumoperitoneum or free fluid. New lesion not simple flui d density anterior to the liver series 3 image 30 measuring 15 mm. VASCULATURE: Moderate atherosclerotic calcifications are present throughout the abdominal aorta and i ts branches. No evidence of aortic aneurysm. MUSCULOSKELETAL: No acute osseous abnormalities LYMPH NODES: No gross evidence for lymphadenopathy. SOFT TISSUE/ABDOMINAL WALL: Bilateral fat-containing inguinal hernias. IMPRESSION: 1. Mild intrahepatic biliary dilation extending to the common hepatic duct with a hazy appearance of the common duct is opacities to the pancreas. Further evaluation with MRI abdomen/ MRCP recommended with IV contrast recommended. Cystic duct obstruction not entirely excluded this point. Correlate ser um markers to exclude a component of focal pancreatitis 2. There is a distended gallbladder with hyperemia of the mucosa. The solorio are within normal limits for size. Findings could be secondary to #1. 3. Multiple areas of metastatic disease within the liver are similar prior PET/CT is likely larger c ompared to prior. 4. Additional site of possible metastatic disease felt to be present anterior liver not seen on prio r PET/CT. Attention on follow-up PET/CT.
== END | disposition home or self-care (01) ==
LOC: RADCTMAIN 09:10
PROVIDERS: ATTEND Internal Medicine Hematology & Oncology
DX: C78.7 Secondary malignant neoplasm of liver and intrahepatic bile duct (principal); C18.7 Malignant neoplasm of sigmoid colon; K82.8 Other specified diseases of gallbladder; K86.89 Other specified diseases of pancreas
CPT/HCPCS: 82565; 84520; 74177; 36415; Q9967

== ENCOUNTER → 2024-04-06 | Outpatient (CLI) | payer OTHER ==
[2024-04-06 13:42] LABS: African American GFR (CKD) >90 (>60 ml/min/1.73 sqM); Blood Urea Nitrogen 14 mg/dL (7-17); Non-African American GFR(CKD) >90 (>60 ml/min/1.73 sqM)
--- NOTE | 2024-04-10 09:01 | CT ---
EXAMINATION TYPE: CT ChestAbdPelvis w con DATE OF EXAM: 04/06/2024 INDICATION: F/U on colon Ca. COMPARISON: 01/13/2024 CT DLP: 1491.4 mGycm CONTRAST: Performed with Oral Contrast and with IV Contrast, patient injected with 100 mL of Isovue 300. TECHNIQUE: Axial images at 5 mm thick sections. Reconstructed images in the coronal plane. Delayed images through the kidneys. FINDINGS: CT CHEST: Right lobe thyroid is somewhat lobular and prominent. Some underlying heterogeneity near the inferior aspect at this sternal notch is present. Additional workup with ultrasound is recommended. No suspicious lung nodules or focal infiltrates are present. No enlarged mediastinal or hilar adenopathy is evident. The ascending aorta diameter at the level of the main pulmonary artery is 3.9 cm. The main pulmonary artery diameter at the bifurcation is 3.[address] ABDOMEN: There appears to be a hiatal hernia is stable in appearance from comparison. Liver: There are multiple subtle hypodensities within the liver. The largest may be within right lobe estimated to measure up to 10 cm, example image series 4 image 49 Spleen: Normal Pancreas: Normal Adrenal glands: The adrenal glands are normal. Gallbladder: Normal Kidneys: No masses are evident. No hydronephrosis is present. No cysts are present. Delayed images were obtained through the kidneys, which remain unremarkable. Aorta: Vascular calcification is within the aorta. Inferior vena cava: Normal. CT PELVIS: Small amount of free fluid is within the right paracolic gutter and adjacent to the liver. Loops of bowel within the abdomen and pelvis are unremarkable. Fecal debris is present within the col on. There are loops of bowel which are incompletely distended or lack oral contrast limiting their ev aluation. Appendix: Not identified. Urinary bladder: Normal. Genitourinary structures: Uterus and ovaries are not identified. Osseous structures: No suspicious lytic or sclerotic lesions. Scoliosis through the lumbar spine. IMPRESSION: 1. Enlarged liver with subtle hypodensity compatible with metastatic disease present previously. 2. Soft tissue density possibly related to hiatal hernia is stable from comparison.
== END | disposition home or self-care (01) ==
LOC: RADCTMAIN 13:02
PROVIDERS: ATTEND Internal Medicine Hematology & Oncology
DX: C18.7 Malignant neoplasm of sigmoid colon (principal); R16.0 Hepatomegaly, not elsewhere classified; C54.9 Malignant neoplasm of corpus uteri, unspecified; I80.10 Phlebitis and thrombophlebitis of unspecified femoral vein
CPT/HCPCS: 82565; 84520; 71260; 74177; 36415; Q9967

== ENCOUNTER → 2024-07-15 | Outpatient (CLI) | payer MEDICARE, OTHER ==
[2024-07-15 12:06] LABS: African American GFR (CKD) >90 (>60 ml/min/1.73 sqM); Blood Urea Nitrogen 11 mg/dL (7-17); Non-African American GFR(CKD) 87 (>60 ml/min/1.73 sqM)
--- NOTE | 2024-07-15 21:59 | CT ---
EXAMINATION TYPE: CT abdomen pelvis w con CT DLP: 1875 mGycm, Automated exposure control for dose reduction was used. DATE OF EXAM: 07/15/2024 1:32 PM COMPARISON: CT chest abdomen and pelvis 04/06/2024, CT abdomen and pelvis 01/13/2024, PET CT 09/17/2023 CLINICAL INDICATION:Female, 64 years old with history of C18.7 Colon CA; Colon CA. TECHNIQUE: Standard CT of the abdomen and pelvis following the administration of 100 cc of Isovue 3 00 IV contrast material and oral contrast. Coronal and sagittal reformats were performed. FINDINGS: LOWER CHEST: Bibasilar linear atelectasis. Aortic valvular calcifications. Small coronary arterial ca lcifications. ABDOMEN LIVER: Multiple well-defined scattered infiltrative regions of heterogenous low attenuation. Examples include a posterior right hepatic lobe 6.5 cm region (series 3, image 24), and anterior left hepatic lobe region measuring up to 9.9 cm (series 3, image 29), a peripheral right hepatic dome region trista uring grossly 5.8 cm (series 3, image 16). GALLBLADDER AND BILE DUCTS: Gallbladder is contracted with hyperattenuating wall. No extrahepatic allison iary duct dilatation. Scattered peripheral regions of bilateral peripheral intrahepatic biliary duct dilatation. Similar prior exam. PANCREAS: Unremarkable. SPLEEN: Unremarkable. ADRENAL GLANDS: Left adrenal gland is unremarkable. Stable right adrenal gland nodularity measuring u p to 1.4 cm.. KIDNEYS AND URETERS: No evidence of hydronephrosis or renal calculus. The kidneys enhance symmetrical ly. Stable bilateral renal cysts with the left measuring 2.7 cm and the right measuring 1.4 cm. PELVIS BLADDER: Unremarkable REPRODUCTIVE: The uterus is surgically absent. ABDOMEN & PELVIS STOMACH AND BOWEL: Redemonstration of paraesophageal hernia containing fluid and fat. Stomach and duo denum are unremarkable. Enteric contrast reaches the mid small bowel. The appendix is within normal l imits. Postsurgical changes along the lower descending colon with colonic anastomosis. No surrounding soft tissue attenuation in this location to suggest local recurrence. No focal bowel wall thickening or surrounding inflammatory changes. Moderate colonic stool. No evidence of bowel obstruction. PERITONEUM: No evidence of pneumoperitoneum. Increased small volume ascites throughout the abdomen an d pelvis. VASCULATURE: Moderate atherosclerotic calcifications are present throughout the abdominal aorta and i ts branches. No evidence of aortic aneurysm. MUSCULOSKELETAL: No acute osseous abnormalities. No aggressive osseous lesion. Mild multilevel degene rative disc disease. Dextrocurvature of the lumbar spine. LYMPH NODES: No gross evidence for lymphadenopathy. SOFT TISSUE/ABDOMINAL WALL: Small fat filled bilateral inguinal hernias. Postsurgical changes of the midline anterior abdominal wall with development of incisional hernia containing fluid with defect me asuring 2.3 x 1.7 cm in TV by CC dimension (series 3, image 50). Hernia contains fluid with abutment of small bowel. Adjacent smaller just superior ventral hernia contains fluid identified. IMPRESSION: 1. Redemonstration of infiltrative hypodense regions of metastatic disease within the liver which is more well defined on today's exam. Results in scattered peripheral regions of intrahepatic biliary d uct dilatation. Probably similar in size to prior CT given more well-defined appearance today. 2. Increasing small volume ascites throughout the abdomen and pelvis. Similar fluid density surroundi ng the distal esophagus prior exams. 3. Development of anterior midline abdominal wall incisional hernia containing fluid with abutment of small bowel. 4. Similar paraesophageal hernia containing fluid and fat. [facility], , 07/15/2024 9:56 PM
== END | disposition home or self-care (01) ==
LOC: RADCTMAIN 11:10
PROVIDERS: ATTEND Internal Medicine Hematology & Oncology
DX: C18.7 Malignant neoplasm of sigmoid colon
CPT/HCPCS: 36415; 74177; 82565; 84520

== ENCOUNTER 2024-08-27 17:20 | Inpatient (IN) | payer MEDICARE, OTHER ==
--- NOTE | 2024-08-27 18:12 | ED ---
General Adult HPI - General Chief complaint: Arrhythmia/Palpitations Stated complaint: Arrhythmia Time Seen by Provider: 08/27/24 17:46 Source: EMS Mode of arrival: EMS Limitations: no limitations - History of Present Illness Initial comments: Dictation was produced using [employer] dictation software. please excuse any grammatical, word or spelling errors. Chief Complaint: 64-year-old female presents emergency department as transfer for dysrhythmia History of Present Illness: Patient 64-year-old male transfer from [place] emergency department. Patient was transferred for wide-complex tachydysrhythmia. Patient initially presented there for thoracic back pain chest pain. She had recently had hernia surgery that went well. At [place] emergency department she was found to be tachycardic with wide-complex. Patient states that she feels much better than she did earlier. She had extensive workup including CT angiography of the chest which revealed no PE. Labs are otherwise unremarkable. The ROS documented in this emergency department record has been reviewed and confirmed by me. Those systems with pertinent positive or negative responses have been documented in the HPI. All other systems are other negative and/or noncontributory. - Related Data Home Medications Medication Instructions Recorded Confirmed Calcium Carbonate [Calcium] 600 mg PO DAILY 12/05/21 08/27/24 Cyanocobalamin [Vitamin B-12] 1,000 mcg PO DAILY 12/05/21 08/27/24 Apixaban [Eliquis] 5 mg PO BID 08/31/22 08/27/24 Ascorbic Acid [Vitamin C] 1,000 mg PO DAILY 11/13/22 08/27/24 Zinc Gluconate [Zinc] 50 mg PO DAILY 11/13/22 08/27/24 Acetaminophen 500 - 1,000 mg PO TID PRN MDD 08/27/24 08/27/24 3,000mg Calcium Carbonate [Calcium] 600 mg PO DAILY 08/27/24 08/27/24 Cyclobenzaprine [Flexeril] 5 mg PO TID PRN 08/27/24 08/27/24 Ferrous Sulfate [Feosol] 325 mg PO DAILY 08/27/24 08/27/24 Ibuprofen [Motrin] 400 mg PO Q3H PRN MDD 2,800mg 08/27/24 08/27/24 Magnesium Oxide [Mag-Ox] 400 mg PO DAILY 08/27/24 08/27/24 traMADol HCL 50 mg PO Q6H PRN 08/27/24 08/27/24 Previous Rx's Medication Instructions Recorded amLODIPine [Norvasc] 10 mg PO DAILY 14 Days #14 tablet 12/03/21 Allergies Allergy/AdvReac Type Severity Reaction Status Date / Time No Known Allergies Allergy Verified 08/27/24 18:23 Review of Systems ROS Statement: Those systems with pertinent positive or pertinent negative responses have been documented in the HPI. ROS Other: All systems not noted in ROS Statement are negative. Past Medical History Past Medical History: Cancer, Deep Vein Thrombosis (DVT), Musculoskeletal Disorder Additional Past Medical History / Comment(s): kidney infection, colon cancer, dvt in leg, ascites, uterine CA History of Any Multi-Drug Resistant Organisms: None Reported Past Surgical History: Bowel Resection, Orthopedic Surgery Additional Past Surgical History / Comment(s): allison wrist surgery 2009, colon resection 09/08, multi paracentesis Past Anesthesia/Blood Transfusion Reactions: No Reported Reaction Past Psychological History: No Psychological Hx Reported Smoking Status: Former smoker Past Alcohol Use History: Rare Past Drug Use History: None Reported - Past Family History Father Family Medical History: Cancer Mother Family Medical History: Vascular Disorder General Exam - General Exam Comments Initial Comments: PHYSICAL EXAM: General Impression: Alert and oriented x3, not in acute distress HEENT: Normocephalic atraumatic, extra-ocular movements intact, pupils equal and reactive to light bilaterally, mucous membranes moist. Cardiovascular: Heart regular rate and rhythm Chest: Able to complete full sentences, no retractions, no tachypnea Abdomen: abdomen soft, non-tender, non-distended, no organomegaly Musculoskeletal: Pulses present and equal in all extremities, no peripheral edema Motor: no focal deficits noted Neurological: CN II-XII grossly intact, no focal motor or sensory deficits noted Skin: Intact with no visualized rashes Psych: Normal affect and mood Limitations: no limitations Course Vital Signs 08/27/24 17:29 Pulse Rate 75 Respiratory 18 Rate Blood Pressure 128/75 O2 Sat by Pulse 93 L Oximetry Medical Decision Making - Medical Decision Making Was pt. sent in by a medical professional or institution (, PA, HOUSEFELLOW, urgent care, hospital, or prison...) When possible be specific @ -Sent in from outside ER Did you speak to anyone other than the patient for history (EMS, parent, family, police, friend...)? What history was obtained from this source @ -Spoke with transferring ER physician Did you review nursing and triage notes (agree or disagree)? Why? @ -I reviewed and agree with nursing and triage notes Were old charts reviewed (outside hosp., previous admission, EMS record, old EKG, old radiological studies, urgent care reports/EKG's, prison records)? Report findings @ -Prior ER charting reviewed Differential Diagnosis (chest pain, altered mental status, abdominal pain women, abdominal pain men, vaginal bleeding, musculoskeletal, weakness, fever, dyspnea, syncope, headache, dizziness, GI bleed, back pain, seizure, CVA, palpatations, mental health)? @ -Not applicable EKG interpreted by me (3pts min.). @ -My EKG interpretation: Ventricular rate 80, sinus rhythm,. 157, QRS 106, QTc 422. No RI prolongation, no QTC prolongation, no ST or T-wave changes noted. X-rays interpreted by me (1pt min.). @ -None done CT interpreted by me (1pt min.). @ -None done U/S interpreted by me (1pt. min.). @ -None done What testing was considered but not performed or refused? (CT, X-rays, U/S, labs)? Why? @ -None What meds were considered but not given or refused? Why? @ -None Was smoking cessation discussed for >3mins.? @ -No Were there social determinants of health that impacted care today? How? (Homelessness, low income, unemployed, alcoholism, drug addiction, transportation, low edu. Level, literacy, decrease access to med. care, residential, rehab)? @ -No Was there de-escalation of care discussed even if they declined (Discuss DNR or withdrawal of care, Hospice)? DNR status @ -No What co-morbidities impacted this encounter? (DM, HTN, Smoking, COPD, CAD, Cancer, CVA, ARF, Chemo, Hep., AIDS, mental health diagnosis, sleep apnea, morbid obesity)? @ -None Was patient admitted / discharged? Hospital course, mention meds given and route, prescriptions, significant lab abnormalities, going to OR and other pertinent info. @ -64-year-old female transferred to our emergency department from [facility] for wide-complex tachycardia dysrhythmia. Vital signs upon arrival here are within acceptable limits. Transfer documentation reviewed from outside hospital. There was an EKG in the transfer documentation that showed a wide- complex tachydysrhythmia suspicious for ventricular tachycardia. Patient currently on amiodarone. EKG performed here is narrow complex sinus rhythm. Patient maintained on amiodarone. Patient will be admitted with consultation cardiology. Did you discuss the management of the patient with other professionals (professionals i.e. , PA, HOUSEFELLOW, lab, RT, psych nurse, social services counselor, local tanker truck driver, teacher, head correction officer, watch caser)? Give summary @ -Case discussed with hospitalist for admission Was critical care preformed (if so, how long)? @ -yes, 33 minutes Undiagnosed new problem with uncertain prognosis? @ -No Drug Therapy requiring intensive monitoring for toxicity (Heparin, Nitro, Insulin, Cardizem)? @ -No Were any procedures done? @ -No Diagnosis/symptom? Acute, or Chronic, or Acute on Chronic? Uncomplicated (without systemic symptoms) or Complicated (systemic symptoms)? @ -V. tach Side effects of treatment? @ -No Exacerbation, Progression, or Severe Exacerbation? @ -No Poses a threat to life or bodily function? How? (Chest pain, [place], [place], pneumonia, PE, COPD, DKA, ARF, appy, cholecystitis, CVA, Diverticulitis, Homicidal, Suicidal, threat to staff... and all critical care pts) @ -yes Disposition Clinical Impression: V tach Disposition: ADMITTED IP TO THIS [facility] Condition: Critical Referrals: Derick Strong MD [Primary Care Provider] - 1-2 days Decision Time: 18:12
[2024-08-27] MEDS: AMIODARONE 360 MG in DEXTROSE 5% IN WATER 200 ML IV ONE (18:24)
[2024-08-27] MEDS ORDERED: NALOXONE 0.4 MG/ML 1 ML VIAL IV PRN (18:33)
[2024-08-27 19:03] LABS: Partial Thromboplastin Time 27.9 sec (22.0-30.0); Prothrombin Time 11.4 sec (10.0-12.5)
[2024-08-27 19:11] LABS: African American GFR (CKD) >90 (>60 ml/min/1.73 sqM); Anion Gap 6 mmol/L; Blood Urea Nitrogen 17 mg/dL (7-17); Calcium 8.7 mg/dL (8.4-10.2); Carbon Dioxide 25 mmol/L (22-30); Chloride 107 mmol/L (98-107); Glucose 117 mg/dL (74-99); Magnesium 1.9 mg/dL (1.6-2.3); Non-African American GFR(CKD) >90 (>60 ml/min/1.73 sqM); Potassium 3.7 mmol/L (3.5-5.1); Sodium 138 mmol/L (137-145)
[2024-08-27] MEDS: AMIODARONE 450 MG in DEXTROSE 5% IN WATER 250 ML IV SCH (19:36)
--- NOTE | 2024-08-27 20:36 | P.HPIM ---
History of Present Illness H&P Date: 08/27/24 History of present illness; 64-year-old female with a PMH of colon cancer (Stage IV, s/p colectomy 08/2021, following w/ Dr Morales, currently on ), deep vein thrombosis (on qu), and a hernia repair on 08/25/2024. Presented to the emergency department at [facility] for thoracic back and chest pain. She states that she was opening mail when she began to experience a pain in both of her shoulders that radiated down both of her arms, stating the pain was a 9/10. She does state that this is a similar pain to what she had felt prior to her hernia surgery, however this time it was notably more severe. At the time of having the pain she states that she did not have any chest pain, was not short of breath however did note feeling warm with diaphoresis. At [place], she was found to have wide-complex tachydysrhythmia on EKG, suspected V-Tach. While at [place] patient had extensive workup including a CT angiography of the chest which revealed no evidence of PE. Labs at that time were otherwise unremarkable. At this time she has no complaints of pain other than moderate abdominal pain at the site of her surgery. The patient has completed 6 hours of receiving 1 mg/min amiodarone drip, was just decreased to 0.5 mg/min. At the time of the interview, the patient reports that her chest pain had resolved at around 11:30 am and has not recurred. She reports being at her baseline and had no no additional complaints. Labratory review: -Labs drawn at [facility]: WBC 12.5, Hgb 14.7, hct 45.4 MCV 84, PLT 498 -Sodium 138, potassium 3.7, BUN 17, creatinine 0.50, magnesium 1.9 -Troponin HS 13.2 --> Troponin I 1.83 Imaging: -CT angiography of the chest completed at [facility] showed no evidence of PE -EKG done in the ER showed heart rate of 70, signs of left ventricular hypertrophy, QTc 422 -2 EKGs completed at [facility] noted wide QRS tachycardia: --The first EKG noting left bundle branch block with a QTc of 525 --The second EKG noting left ventricular pretreat with QRS widening and repolarization abnormality with a QTc 522 Vitals: -Blood pressure 120/73, heart rate 71, respiratory rate 19, oxygen saturation 93% on room air Patient admitted to internal medicine service REVIEW OF SYSTEMS: CONSTITUTIONAL: No fever, no malaise, no fatigue. HEENT: No recent visual problems or hearing problems. Denied any sore throat. CARDIOVASCULAR: No chest pain, orthopnea, PND, no palpitations, no syncope. PULMONARY: No shortness of breath, no cough, no hemoptysis. GASTROINTESTINAL: No diarrhea, no nausea, no vomiting, no abdominal pain. NEUROLOGICAL: No headaches, no weakness, no numbness. HEMATOLOGICAL: Denies any bleeding or petechiae. GENITOURINARY: Denies any burning micturition, frequency, or urgency. MUSCULOSKELETAL/RHEUMATOLOGICAL: Denies any joint pain, swelling, or any muscle pain. ENDOCRINE: Denies any polyuria or polydipsia The rest of the 14-point review of systems is negative. PHYSICAL EXAMINATION: GENERAL: The patient is alert and oriented x3, not in any acute distress. Well developed, well nourished. HEENT: No scleral icterus. No conjunctival pallor. Normocephalic, atraumatic. CARDIOVASCULAR: S1 and S2 present. No murmurs, rubs, or gallops. PULMONARY: Chest is clear to auscultation, no wheezing or crackles. ABDOMEN: Soft, nondistended, normoactive bowel sounds. No palpable organomegaly. Some tenderness noted at the surgical site. Surgical binder noted on abdomen following hernia repair on 08/25/2024. Surgical dressings examined with no erythema or tenderness noted. MUSCULOSKELETAL: No joint swelling or deformity. Hammertoe noted on the left foot. EXTREMITIES: No cyanosis, clubbing, or pedal edema. NEUROLOGICAL: Gross neurological examination did not reveal any focal deficits. SKIN: No rashes. 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 Robson Morales, her oncologist -Not currently taking her Keytruda, has been on holiday for the past month and a half secondary to needing undergo surgery to repair hernia #Hypertension -Continue home Norvasc #History of Microcytic anemia, likely secondary to iron deficiency -Currently no signs of microcytic anemia, controlled on medications -Hold home 325 mg ferrous sulfate #History of deep vein thrombosis -Maintained on Eliquis at home 5 mg twice daily -Home hold eliquis, started on heparin drip Code Status: Full Code GI prohylaxis: Protonix 40 mg daily DVT prophylaxis: On Eliquis at home Dictation was produced using [employer] dictation software. please excuse any grammatical, word or spelling errors. Past Medical History Past Medical History: Cancer, Deep Vein Thrombosis (DVT), Musculoskeletal Disorder Additional Past Medical History / Comment(s): kidney infection, colon cancer, dvt in leg, ascites, uterine CA History of Any Multi-Drug Resistant Organisms: None Reported Past Surgical History: Bowel Resection, Orthopedic Surgery Additional Past Surgical History / Comment(s): allison wrist surgery 2009, colon resection 09/08, multi paracentesis Past Anesthesia/Blood Transfusion Reactions: No Reported Reaction Past Psychological History: No Psychological Hx Reported Smoking Status: Former smoker Past Alcohol Use History: Rare Past Drug Use History: None Reported - Past Family History Father Family Medical History: Cancer Mother Family Medical History: Vascular Disorder Medications and Allergies Home Medications Medication Instructions Recorded Confirmed Type amLODIPine [Norvasc] 10 mg PO DAILY 14 Days #14 tablet 12/03/21 08/27/24 Rx Calcium Carbonate [Calcium] 600 mg PO DAILY 12/05/21 08/27/24 History Cyanocobalamin [Vitamin B-12] 1,000 mcg PO DAILY 12/05/21 08/27/24 History Apixaban [Eliquis] 5 mg PO BID 08/31/22 08/27/24 History Ascorbic Acid [Vitamin C] 1,000 mg PO DAILY 11/13/22 08/27/24 History Zinc Gluconate [Zinc] 50 mg PO DAILY 11/13/22 08/27/24 History Acetaminophen 500 - 1,000 mg PO TID PRN MDD 08/27/24 08/27/24 History 3,000mg Calcium Carbonate [Calcium] 600 mg PO DAILY 08/27/24 08/27/24 History Cyclobenzaprine [Flexeril] 5 mg PO TID PRN 08/27/24 08/27/24 History Ferrous Sulfate [Feosol] 325 mg PO DAILY 08/27/24 08/27/24 History Ibuprofen [Motrin] 400 mg PO Q3H PRN MDD 2,800mg 08/27/24 08/27/24 History Magnesium Oxide [Mag-Ox] 400 mg PO DAILY 08/27/24 08/27/24 History traMADol HCL 50 mg PO Q6H PRN 08/27/24 08/27/24 History Allergies Allergy/AdvReac Type Severity Reaction Status Date / Time No Known Allergies Allergy Verified 08/27/24 18:23 Physical Exam Vitals: Vital Signs Pulse Resp BP Pulse Ox 08/27/24 18:36 71 19 120/73 93 L 08/27/24 17:29 75 18 128/75 93 L Intake and Output 08/27/24 08/27/24 08/27/24 06:59 14:59 22:59 Other: Weight 81.647 kg Results CBC & Chem 7: 08/27/24 18:35 Labs: Abnormal Lab Results - Last 24 Hours (Table) 08/27/24 Range/Units 18:35 Creatinine 0.50 L (0.52-1.04) mg/dL Glucose 117 H (74-99) mg/dL
[2024-08-27] MEDS: ASPIRIN 81 MG PO STA (21:43)
[2024-08-27] MEDS: ATORVASTATIN 40 MG TAB PO SCH (21:43)
[2024-08-27] MEDS: HEPARIN SODIUM 1,000 UN/ML (10ML VL) IV ONE (21:47)
[2024-08-27] MEDS: HEPARIN SOD,PORK IN 0.45% NACL 25,000 UNIT in 0.45% NACL 1 250ML.BAG IV SCH (21:49)
[2024-08-28 04:39] LABS: Anisocytosis Moderate; Basophils # (A) 0.1 k/uL (0-0.2); Basophils % (A) 0 %; Eosinophils # (A) 0.3 k/uL (0-0.7); Eosinophils % (A) 3 %; HCT 37.5 % (34.0-46.0); HGB 11.7 gm/dL (11.4-16.0); Hypochromasia Slight; Lymphocytes # (A) 2.5 k/uL (1.0-4.8); Lymphocytes % (A) 23 %; MCH 26.5 pg (25.0-35.0); MCHC 31.1 g/dL (31.0-37.0); MCV 85.1 fL (80.0-100.0); Mean Platelet Volume 7.9; Microcytosis Slight; Monocytes # (A) 0.6 k/uL (0-1.0); Monocytes % (A) 6 %; Neutrophils # (A) 7.3 k/uL (1.3-7.7); Neutrophils % (A) 67 %; Platelet Count 377 k/uL (150-450); RDW 20.1 % (11.5-15.5); WBC 10.9 k/uL (3.8-10.6)
[2024-08-28] MEDS: HEPARIN SODIUM 1,000 UN/ML (10ML VL) IV PRN (05:34)
[2024-08-28] MEDS: PANTOPRAZOLE 40 MG TABLET PO SCH (08:36)
[2024-08-28] MEDS: ATORVASTATIN 80 MG TAB PO SCH (08:36)
[2024-08-28] MEDS: amLODIPine 10 MG TAB PO SCH (08:36)
[2024-08-28] MEDS: ASPIRIN 325 MG TAB PO SCH (08:36)
[2024-08-28] MEDS ORDERED: ASPIRIN 81 MG PO SCH (09:00)
--- NOTE | 2024-08-28 09:37 | P.CRDCN ---
History of Present Illness Consult date: 08/28/24 History of present illness: HISTORY OF PRESENTING ILLNESS Patient is a 64-year-old female with past medical history of liver cancer on chemotherapy with Keytruda. She recently had inguinal hernia surgery 3 days ago. Yesterday patient was breaking out in sweat, not feeling well and was getting different breathing. For this she went to the [facility] without in the heart which hospital she was noticed to be in ventricular tachycardia for which she was started on amiodarone drip and IV heparin drip and was transferred to the [facility]. ECG here in [facility] shows sinus rhythm with concerns of possible preexcitation with suspected left lateral accessory pathway. Her troponins were elevated 1.8, 4.0, 3.2. REVIEW OF SYSTEMS 14 point review of system is negative except what is mentioned above in HPI. PHYSICAL EXAMINATION Vital signs reviewed. Head: Normocephalic. Eyes: Sclerae nonicteric. Neck: Brisk carotid upstroke, no jugular venous distention. Lungs: Clear to auscultation. Heart: Regular rate and rhythm, S1-S2, no S3, no murmur or rub. Abdomen: Soft nontender, positive bowel sounds., surgical scar healing well Extremities: No edema, intact distal pulses. Neuro: Alert, oritented, no focal deficits. Detailed neuro exam was not perf ormed. 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 Discontinue drip. Start p.o. 200 mg twice daily. Taper amiodarone dose. 200 mg twice daily for 2 weeks, thereafter 1 mg p.o. daily Avoid AV liborio blockers Controlled BP with losartan 50 mg daily, reduce amlodipine to 5mg Have electrophysiology review the ECG to see if there is any preexcitation. If there is, she would benefit from ablation. Obtain echocardiogram Shay Edgar MD, Past Medical History Past Medical History: Cancer, Deep Vein Thrombosis (DVT), Musculoskeletal Disorder Additional Past Medical History / Comment(s): kidney infection, colon cancer, dvt in leg, ascites, uterine CA History of Any Multi-Drug Resistant Organisms: None Reported Past Surgical History: Bowel Resection, Orthopedic Surgery Additional Past Surgical History / Comment(s): allison wrist surgery 2009, colon resection 09/08, multi paracentesis Past Anesthesia/Blood Transfusion Reactions: No Reported Reaction Past Psychological History: No Psychological Hx Reported Smoking Status: Former smoker Past Alcohol Use History: Rare Past Drug Use History: None Reported - Past Family History Father Family Medical History: Cancer Mother Family Medical History: Vascular Disorder Medications and Allergies Home Medications Medication Instructions Recorded Confirmed Type amLODIPine [Norvasc] 10 mg PO DAILY 14 Days #14 tablet 12/03/21 08/27/24 Rx Calcium Carbonate [Calcium] 600 mg PO DAILY 12/05/21 08/27/24 History Cyanocobalamin [Vitamin B-12] 1,000 mcg PO DAILY 12/05/21 08/27/24 History Apixaban [Eliquis] 5 mg PO BID 08/31/22 08/27/24 History Ascorbic Acid [Vitamin C] 1,000 mg PO DAILY 11/13/22 08/27/24 History Zinc Gluconate [Zinc] 50 mg PO DAILY 11/13/22 08/27/24 History Acetaminophen 500 - 1,000 mg PO TID PRN MDD 08/27/24 08/27/24 History 3,000mg Calcium Carbonate [Calcium] 600 mg PO DAILY 08/27/24 08/27/24 History Cyclobenzaprine [Flexeril] 5 mg PO TID PRN 08/27/24 08/27/24 History Ferrous Sulfate [Feosol] 325 mg PO DAILY 08/27/24 08/27/24 History Ibuprofen [Motrin] 400 mg PO Q3H PRN MDD 2,800mg 08/27/24 08/27/24 History Magnesium Oxide [Mag-Ox] 400 mg PO DAILY 08/27/24 08/27/24 History traMADol HCL 50 mg PO Q6H PRN 08/27/24 08/27/24 History Allergies Allergy/AdvReac Type Severity Reaction Status Date / Time No Known Allergies Allergy Verified 08/27/24 18:23 Physical Exam Vitals: Vital Signs Pulse Resp BP Pulse Ox 08/28/24 08:34 60 16 143/83 92 L 08/28/24 05:19 62 18 137/84 92 L 08/28/24 02:00 63 19 139/75 92 L 08/28/24 01:00 64 26 H 130/70 93 L 08/28/24 00:00 63 20 125/70 94 L 08/27/24 23:00 69 11 L 135/91 93 L 08/27/24 22:00 74 19 143/75 93 L 08/27/24 21:00 67 25 H 123/71 93 L 08/27/24 20:00 68 14 129/110 94 L 08/27/24 19:00 72 16 127/83 94 L 08/27/24 18:36 71 19 120/73 93 L 08/27/24 18:00 67 14 120/73 93 L 08/27/24 17:29 75 18 128/75 93 L Intake and Output 08/27/24 08/28/24 08/28/24 22:59 06:59 14:59 Intake Total 75.118 Balance 75.118 Intake: Intake, IV Titration 75.118 Amount Heparin Sod,Pork in 0.45% 75.118 NaCl 25,000 unit In 0.45 % NaCl 1 250ml.bag @ 12 UNITS/KG/HR 9.798 mls/hr IV .Q24H [facility] Rx#: [id number] Other: Weight 81.647 kg Results 08/28/24 04:30 08/27/24 18:35 Cardiac Enzymes 08/27/24 08/28/24 08/28/24 Range/Units 18:35 04:30 06:18 Troponin I 1.830 H* 4.080 H* 3.260 H* (0.000-0.034) ng/mL Coagulation 08/27/24 08/28/24 Range/Units 18:35 04:30 PT 11.4 (10.0-12.5) sec APTT 27.9 37.2 H (22.0-30.0) sec CBC 08/28/24 Range/Units 04:30 WBC 10.9 H (3.8-10.6) k/uL RBC 4.40 (3.80-5.40) m/uL Hgb 11.7 (11.4-16.0) gm/dL Hct 37.5 (34.0-46.0) % Plt Count 377 (150-450) k/uL Comprehensive Metabolic Panel 08/27/24 Range/Units 18:35 Sodium 138 (137-145) mmol/L Potassium 3.7 (3.5-5.1) mmol/L Chloride 107 (98-107) mmol/L Carbon Dioxide 25 (22-30) mmol/L BUN 17 (7-17) mg/dL Creatinine 0.50 L (0.52-1.04) mg/dL Glucose 117 H (74-99) mg/dL Calcium 8.7 (8.4-10.2) mg/dL Current Medications Generic Name Dose Route Start Last Admin Trade Name Freq PRN Reason Stop Dose Admin Amiodarone HCl 200 mg 08/28/24 09:30 Amiodarone 200 Mg Tab PO BID [facility] Amlodipine Besylate 5 mg 08/29/24 09:00 Amlodipine 5 Mg Tab PO DAILY [facility] Aspirin 81 mg 08/29/24 09:00 Aspirin 81 Mg PO DAILY [facility] Atorvastatin Calcium 80 mg 08/28/24 09:00 08/28/24 08:36 Atorvastatin 80 Mg Tab PO 80 mg DAILY [facility] Administration Cyclobenzaprine HCl 5 mg 08/28/24 01:13 Cyclobenzaprine 5 Mg Tab PO TID PRN Pain Heparin Sodium (Porcine) 0 unit 08/27/24 20:34 08/28/24 05:34 Heparin Sodium 1,000 Un/Ml (10ml Vl) IV 2,040 unit PER PROTOCOL PRN Administration Low PTT Protocol Heparin Sodium/Sodium Chloride 250 mls @ 9.798 mls/hr 08/27/24 20:45 08/28/24 05:29 25,000 unit/ Sodium Chloride IV 14 units/kg/hr .Q24H [facility] 11.431 mls/hr Titration Protocol 12 UNITS/KG/HR Losartan Potassium 50 mg 08/28/24 09:30 Losartan 50 Mg Tab PO DAILY [facility] Naloxone HCl 0.2 mg 08/27/24 18:33 Naloxone 0.4 Mg/Ml 1 Ml Vial IV Q2M PRN Opioid Reversal Pantoprazole Sodium 40 mg 08/28/24 07:30 08/28/24 08:36 Pantoprazole 40 Mg Tablet PO 40 mg [id number] [facility] Administration Tramadol HCl 50 mg 08/28/24 01:13 Tramadol 50 Mg Tab PO Q6H PRN Pain Intake and Output 08/27/24 08/28/24 08/28/24 22:59 06:59 14:59 Intake Total 75.118 Balance 75.118 Intake: Intake, IV Titration 75.118 Amount Heparin Sod,Pork in 0.45% 75.118 NaCl 25,000 unit In 0.45 % NaCl 1 250ml.bag @ 12 UNITS/KG/HR 9.798 mls/hr IV .Q24H [facility] Rx#: [id number] Other: Weight 81.647 kg 08/28/24 04:30 08/27/24 18:35
[2024-08-28] MEDS: AMIODARONE 200 MG TAB PO SCH (10:11)
[2024-08-28] MEDS: LOSARTAN 50 MG TAB PO SCH (10:11)
--- NOTE | 2024-08-28 11:50 | P.PN ---
Subjective Progress Note Date: 08/28/24 Hospital course: Patient is a very pleasant 64-year-old female with a past medical history of colon cancer (Stage IV, s/p colectomy 08/2021, following w/ Dr Morales, currently on hol), deep vein thrombosis (on Eliquis), and a recent open hernia repair on 08/25/[address]. Pt presented to our facility as a transfer from [place] emergency department for thoracic back/shoulder/chest pain and a reported run of sustained V-Tach. At [place], pt was reported to have wide-complex tachydysrhythmia on EKG, suspected V-Tach and was started on amiodarone infusion. 2 EKGs were completed at [facility] showing wide QRS tachycardia: The first EKG revealing left bundle branch block with a QTc of 525 and the second EKG showing left ventricular pretreat with QRS widening and repolarization abnormality with a QTc 522 Pt underwent additional workup including a CT angiography of the chest which revealed no evidence of PE. Labs were reported to otherwise be unremarkable with negative troponin HS of 13.2. Upon arrival to our facility, patient reported full resolution of chest/thoracic/shoulder pain stating it resolved around 11:30 AM. Patient had completed 6 hours of amiodarone infusion at 1 mg/min and decreased to 0.5 mg/min. Vital signs upon arrival show blood pressure 128/75, heart rate 75, respiratory rate 18, and SpO2 of 93% on room air. EKG was completed showing normal sinus rhythm at 70 bpm with left ventricular hypertrophy T wave inversion lead III. Labs were completed and reviewed. CBC showing mild leukocytosis with WBC count of 10.9 otherwise normal findings. Coagulation profile normal findings. BMP unremarkable. Blood glucose 117. Magnesium 1.9. Troponin was elevated at 1.830. Patient started on low intensity heparin infusion. She was admitted under our services with consultation to cardiology. Troponins trending resulting at 1.830, 4.080, and 3.260. Physical exam: Patient seen and fully evaluated at bedside this morning. She currently remains in sinus rhythm. She reports continued full resolution of previous reported shoulder/back/thoracic pain. She denies any other complaints including headache, lightheadedness, dizziness, palpitations, shortness of breath, or experiencing any numbness/tingling/weakness/swelling in her extremities. She reports tolerating oral intake and denies any episodes of nausea or vomiting. Patient remains on heparin and amiodarone infusion. Vital signs reviewed and stable. General: Nontoxic, no distress and appears stated age. Derm: Skin warm and dry, normal coloration for ethnicity. Head: Atraumatic, normocephalic and symmetric. Eyes: EOM's intact, no lid lag, and anicteric sclera Mouth: no lip lesions, mucus membranes moist Cardiovascular: regular rate and rhythm with normal S1S2, no murmur, positive p osterior tibial pulses bilaterally, and cap refill < 2 seconds. Lungs: Respirations even, regular, and unlabored on room air. Lungs CTA bilaterally, no rhonchi, no rales, no wheezing, and no accessory muscle usage. Abdominal: soft, nontender to palpation, no guarding, no appreciable organomegaly Ext: ROM intact. No gross muscle atrophy, no edema, no contractures Neuro: Speech clear, face symmetrical and CN II-XII grossly intact with no noted focal neuro deficits Psych: Alert and oriented to person, place, time, and situation. Appropriate and pleasant affect. Assessment and Plan of Care: Ventricular tachycardia, sustained NSTEMI -Cardiology consulted, discussed case with Dr. Edgar who is recommending patient remain on heparin infusion for an additional 48 hours and to avoid any and all AV liborio blocking agents..He reports he will make changes to amiodarone and transistion pt to oral. -Patient maintained on amiodarone drip at 0.5 mg/min -Troponins trending resulting at 1.830, 4.080, and 3.260. -Continue low intensity heparin infusion with close monitoring of PTT for goal therapeutic range of 45 to 79 seconds. Currently subtherapeutic PTT of 37.2 and heparin infusion increased from 12 units/kg/h up to 14 units/kg/h. -Continue amlodipine 5 mg daily, aspirin 81 mg daily, atorvastatin 80 mg daily, and losartan 50 mg daily. -Patient to remain on continuous telemetry monitoring. -Order placed for echocardiogram. -Avoid beta-blockers Status post recent hiatal hernia repair -Patient day 3 postop. -Continue symptomatic care and pain management minus Tylenol 650 mg every 6 hours as needed for mild pain, tramadol 50 mg every 6 hours as needed for moderate pain, and morphine 4 mg IVP if needed for severe pain. -Order placed for wound care, continue dressing changes 2 times daily and as needed. -Encourage use of abdominal binder. -Order placed for incentive spirometer, encourage use 10-15 times hourly while awake. 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 Robson Morales -Not currently taking her Keytruda, has been on holiday for the past month and a half secondary to recent hernia repair. Hypertension -Continue medication regimen with amlodipine 5 mg daily and losartan 50 mg daily. History of Microcytic anemia, likely secondary to iron deficiency -Continue ferrous sulfate 325 mg daily. History of deep vein thrombosis -Maintained on Eliquis at home 5 mg twice daily, currently Eliquis held secondary to need for heparin infusion. Office Assistant Receptionist recommending continuing aspirin infusion for an additional 48 hours. Data and imaging reviewed: -Labs were completed and reviewed. CBC showing mild leukocytosis with WBC count of 10.9 otherwise normal findings. Coagulation profile normal findings. BMP unremarkable. Blood glucose 117. Magnesium 1.9. Troponins trending resulting at 1.830, 4.080, and 3.260. -Vital signs reviewed. Blood pressure 143/83, heart rate 60, respiratory rate 16, and SpO2 of 92% on room air. CODE STATUS: Full code DVT prophylaxis: Heparin infusion Discussed with: Patient, RN, and explosive expert Anticipated discharge date: Pending clinical course Anticipated discharge place: Home Patient was seen independently by Nurse Pracitioner. This document was prepared using [employer] dictation software. Please allow for errors in research nutritionist, while rare they do occur. Jhonatan Bueno NP rendered care for this patient independently, reviewed the findings and plan as documented in the note above and agree with plan. I did not physically speak with or examine the patient on this date. Objective - Vital Signs Vital signs: Vital Signs Temp Pulse 60 08/28/24 08:34 Resp 16 08/28/24 08:34 BP 143/83 08/28/24 08:34 Pulse Ox 92 L 08/28/24 08:34 FiO2 Intake & Output 08/27/24 08/28/24 08/28/24 18:59 06:59 18:59 Intake Total 75.118 Balance 75.118 Weight 81.647 kg Intake: Intake, IV Titration 75.118 Amount Heparin Sod,Pork in 0.45% 75.118 NaCl 25,000 unit In 0.45 % NaCl 1 250ml.bag @ 12 UNITS/KG/HR 9.798 mls/hr IV .Q24H [facility] Rx#: [id number] - Labs CBC & Chem 7: 08/28/24 04:30 08/27/24 18:35 Labs: Abnormal Lab Results - Last 24 Hours (Table) 08/27/24 08/27/24 08/28/24 Range/Units 18:35 18:35 04:30 WBC 10.9 H (3.8-10.6) k/uL RDW 20.1 H (11.5-15.5) % APTT (22.0-30.0) sec Creatinine 0.50 L (0.52-1.04) mg/dL Glucose 117 H (74-99) mg/dL Troponin I 1.830 H* (0.000-0.034) ng/mL 08/28/24 08/28/24 08/28/24 Range/Units 04:30 04:30 06:18 WBC (3.8-10.6) k/uL RDW (11.5-15.5) % APTT 37.2 H (22.0-30.0) sec Creatinine (0.52-1.04) mg/dL Glucose (74-99) mg/dL Troponin I 4.080 H* 3.260 H* (0.000-0.034) ng/mL
[2024-08-28] MEDS: traMADol 50 MG TAB PO PRN (16:34)
[2024-08-28] MEDS: MORPHINE SULFATE 4 MG/ML SYRINGE IV PRN (16:34)
[2024-08-29 06:46] LABS: Anisocytosis Moderate; HCT 39.1 % (34.0-46.0); HGB 12.3 gm/dL (11.4-16.0); Hypochromasia Moderate; MCH 27.3 pg (25.0-35.0); MCHC 31.5 g/dL (31.0-37.0); MCV 86.7 fL (80.0-100.0); Mean Platelet Volume 7.4; Microcytosis Slight; Platelet Count 379 k/uL (150-450); RBC 4.51 m/uL (3.80-5.40); RDW 20.2 % (11.5-15.5); WBC 14.5 k/uL (3.8-10.6)
[2024-08-29 06:55] LABS: ALT 29 U/L (4-34); African American GFR (CKD) >90 (>60 ml/min/1.73 sqM); Albumin 3.5 g/dL (3.5-5.0); Anion Gap 6 mmol/L; Blood Urea Nitrogen 15 mg/dL (7-17); Calcium 8.8 mg/dL (8.4-10.2); Carbon Dioxide 24 mmol/L (22-30); Chloride 103 mmol/L (98-107); Glucose 130 mg/dL (74-99); Non-African American GFR(CKD) >90 (>60 ml/min/1.73 sqM); Sodium 133 mmol/L (137-145); Total Bilirubin 0.6 mg/dL (0.2-1.3); Total Protein 6.5 g/dL (6.3-8.2)
[2024-08-29 06:59] LABS: AST 58 U/L (14-36); Alkaline Phosphatase 552 U/L (38-126); Magnesium 1.9 mg/dL (1.6-2.3); Potassium 4.2 mmol/L (3.5-5.1)
[2024-08-29] MEDS: amLODIPine 5 MG TAB PO SCH (09:51)
[2024-08-29] MEDS: FERROUS SULFATE 325 MG TAB PO SCH (09:51)
[2024-08-29] MEDS: ASPIRIN 81 MG PO SCH (09:52)
[2024-08-29 11:02] LABS: T4, Free (Free Thyroxine) 1.85 ng/dL (0.78-2.19)
[2024-08-29] MEDS ORDERED: NITROGLYCERIN SL TABS 0.4 MG TAB SUBLINGUAL PRN (11:16)
[2024-08-29] MEDS ORDERED: ALPRAZolam 0.25 MG TAB PO PRN (11:16)
[2024-08-29] MEDS ORDERED: ALPRAZolam 0.5 MG TAB PO PRN (11:16)
--- NOTE | 2024-08-29 11:32 | P.PN ---
Subjective Progress Note Date: 08/29/24 Hospital course: Patient is a very pleasant 64-year-old female with a past medical history of colon cancer (Stage IV, s/p colectomy 08/2021, following w/ Dr Morales, currently on hol), deep vein thrombosis (on Eliquis), and a recent open hernia repair on 08/25/[address]. Pt presented to our facility as a transfer from [place] emergency department for thoracic back/shoulder/chest pain and a reported run of sustained V-Tach. At [place], pt was reported to have wide-complex tachydysrhythmia on EKG, suspected V-Tach and was started on amiodarone infusion. 2 EKGs were completed at [facility] showing wide QRS tachycardia: The first EKG revealing left bundle branch block with a QTc of 525 and the second EKG showing left ventricular pretreat with QRS widening and repolarization abnormality with a QTc 522 Pt underwent additional workup including a CT angiography of the chest which revealed no evidence of PE. Labs were reported to otherwise be unremarkable with negative troponin HS of 13.2. Upon arrival to our facility, patient reported full resolution of chest/thoracic/shoulder pain stating it resolved around 11:30 AM. Patient had completed 6 hours of amiodarone infusion at 1 mg/min and decreased to 0.5 mg/min. Vital signs upon arrival show blood pressure 128/75, heart rate 75, respiratory rate 18, and SpO2 of 93% on room air. EKG was completed showing normal sinus rhythm at 70 bpm with left ventricular hypertrophy T wave inversion lead III. Labs were completed and reviewed. CBC showing mild leukocytosis with WBC count of 10.9 otherwise normal findings. Coagulation profile normal findings. BMP unremarkable. Blood glucose 117. Magnesium 1.9. Troponin was elevated at 1.830. Patient started on low intensity heparin infusion. She was admitted under our services with consultation to cardiology. Troponins trending resulting at 1.830, 4.080, and 3.260. Physical exam: Patient seen and fully evaluated at bedside this morning. She remains in sinus rhythm and continues to deny any further episodes of shoulder/back/thoracic pain or any other complaints at this time. Vital signs reviewed and stable. General: Nontoxic, no distress and appears stated age. Derm: Skin warm and dry, normal coloration for ethnicity. Head: Atraumatic, normocephalic and symmetric. Eyes: EOM's intact, no lid lag, and anicteric sclera Mouth: no lip lesions, mucus membranes moist Cardiovascular: regular rate and rhythm with normal S1S2, no murmur, positive posterior tibial pulses bilaterally, and cap refill < 2 seconds. Lungs: Respirations even, regular, and unlabored on room air. Lungs CTA bilaterally, no rhonchi, no rales, no wheezing, and no accessory muscle usage. Abdominal: soft, nontender to palpation, no guarding, no appreciable organomegaly Ext: ROM intact. No gross muscle atrophy, no edema, no contractures Neuro: Speech clear, face symmetrical and CN II-XII grossly intact with no noted focal neuro deficits Psych: Alert and oriented to person, place, time, and situation. Appropriate and pleasant affect. Assessment and Plan of Care: Ventricular tachycardia, sustained NSTEMI -Cardiology following, discussed with Cardiac CEO ZIFF DAVIS recommending patient to remain on heparin infusion for an additional 24 hours and planning to take patient for cardiac cath tomorrow. -Rachel infusion was discontinued and patient started on oral amiodarone 200 mg twice daily. -Troponins trending resulting at 1.830, 4.080, and 3.260. -Continue low intensity heparin infusion with close monitoring of PTT for goal therapeutic range of 45 to 79 seconds. Currently subtherapeutic PTT of 30.0 and heparin infusion increased from 12 units/kg/h up to 17 units/kg/h. -Continue amlodipine 5 mg daily, aspirin 81 mg daily, atorvastatin 80 mg daily, and losartan 50 mg daily. Cardiology also starting pt on metorprolol 25 mg BID this morning. -Patient to remain on continuous telemetry monitoring. -Awaiting echocardiogram to be completed. Status post recent hiatal hernia repair -Patient day 4 postop. -Continue symptomatic care and pain management minus Tylenol 650 mg every 6 hours as needed for mild pain, tramadol 50 mg every 6 hours as needed for mo derate pain, and morphine 4 mg IVP if needed for severe pain. -Continue dressing changes 2 times daily and as needed. -Encourage use of abdominal binder. -Incentive spirometer, encourage use 10-15 times hourly while awake. 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 Robson Morales -Not currently taking her Keytruda, has been on holiday for the past month and a half secondary to recent hernia repair. Hypertension -Continue medication regimen with amlodipine 5 mg daily and losartan 50 mg daily. History of Microcytic anemia, likely secondary to iron deficiency -Continue ferrous sulfate 325 mg daily. History of deep vein thrombosis -Maintained on Eliquis at home 5 mg twice daily, currently Eliquis held secondary to need for heparin infusion. Arc Welding Machine Operator recommending continuing heparin infusion for an additional 24 hours. Data and imaging reviewed: -Labs were completed and reviewed. CBC showing leukocytosis with WBC count of 14.5 otherwise normal findings. BMP showing mild hyponatremia with sodium of 133 and glucose of 130. Magnesium 1.9. PTT subtherapeutic at 38.0. -Vital signs reviewed. Blood pressure 125/75, heart rate 86, respiratory rate 18, temp 98.0 F, and SpO2 of 94% on room air. CODE STATUS: Full code DVT prophylaxis: Heparin infusion Discussed with: Patient, RN, and cardiology CEO ZIFF DAVIS Anticipated discharge date: Pending clinical course Anticipated discharge place: Home Patient was seen independently by Nurse Pracitioner. This document was prepared using [employer] dictation software. Please allow for errors in stem teacher, while rare they do occur. Jhonatan Bueno, MANASA rendered care for this patient independently, reviewed the findings and plan as documented in the note above and agree with plan. I did not physically speak with or examine the patient on this date. Objective - Vital Signs Vital signs: Vital Signs Temp 98.1 F 08/28/24 21:07 Pulse 67 08/29/24 04:13 Resp 18 08/29/24 04:13 BP 114/61 08/29/24 04:13 Pulse Ox 93 L 08/29/24 04:13 FiO2 Intake & Output 08/28/24 08/29/24 08/29/24 18:59 06:59 18:59 Intake Total 287.287 Output Total 4000 550 Balance -4000 -262.713 Weight 78.7 kg Intake: Intake, IV Titration 287.287 Amount Heparin Sod,Pork in 0.45% 287.287 NaCl 25,000 unit In 0.45 % NaCl 1 250ml.bag @ 12 UNITS/KG/HR 9.798 mls/hr IV .Q24H [facility] Rx#: [id number] Output: Urine 4000 550 Other: Voiding Method Toilet External Catheter - Labs CBC & Chem 7: 08/29/24 06:07 08/29/24 06:07 Labs: Abnormal Lab Results - Last 24 Hours (Table) 08/28/24 08/29/24 08/29/24 Range/Units 11:43 06:07 06:07 WBC 14.5 H (3.8-10.6) k/uL RDW 20.2 H (11.5-15.5) % APTT 40.8 H (22.0-30.0) sec Sodium 133 L (137-145) mmol/L Glucose 130 H (74-99) mg/dL AST 58 H (14-36) U/L Alkaline Phosphatase 552 H (38-126) U/L TSH 5.820 H (0.465-4.680) mIU/L
--- NOTE | 2024-08-29 12:06 | CA ---
Transthoracic Echo Report Name: Poonam Miller Age: 64 Gender: F : 1960 Exam Date: 08/29/2024 08:56 Exam Location: [facility] Ht (in): 64 Wt (lb): 180 Ordering Physician: Jhonatan Bueno Attending/Referring Phys: Rubber Washer Anahi Pena RDCS Procedure CPT: Indications: NSTEMI, V-tach Cardiac Hx: Technical Quality: Technically difficult study Contrast 1: Definity Total Dose (mL): 1 Contrast 2: Total Dose (mL): MEASUREMENTS (Male / Female) Normal Values 2D ECHO LV Diastolic Diameter PLAX 4.1 cm 4.2 - 5.9 / 3.9 - 5.3 cm LV Systolic Diameter PLAX 3.1 cm IVS Diastolic Thickness 0.9 cm 0.6 - 1.0 / 0.6 - 0.9 cm LVPW Diastolic Thickness 1.0 cm 0.6 - 1.0 / 0.6 - 0.9 cm LV Relative Wall Thickness 0.5 LVOT Diameter 2.0 cm LV Diastolic Volume MOD BP 111.1 cm??? 67 - 155 / 56 - 104 cm??? LV Systolic Volume MOD BP 37.9 cm??? 22 - 58 / 19 - 49 cm??? LV Ejection Fraction MOD BP 65.9 % >= 55 % LV Cardiac Index MOD BP 3004.6 cm???/min???m??? LV Diastolic Volume MOD 4C 113.2 cm??? LV Systolic Volume MOD 4C 39.9 cm??? LV Ejection Fraction MOD 4C 64.8 % LV Cardiac Index MOD 4C 3011.7 cm???/min???m??? LV Diastolic Length 4C 9.1 cm LV Systolic Length 4C 7.5 cm LV Diastolic Volume MOD 2C 109.3 cm??? LV Systolic Volume MOD 2C 33.6 cm??? LV Ejection Fraction MOD 2C 69.3 % LV Cardiac Index MOD 2C 3106.9 cm???/min???m??? LV Diastolic Length 2C 9.1 cm LV Systolic Length 2C 6.9 cm LA Volume 88.7 cm??? 18 - 58 / 22 - 52 cm??? LA Volume Index 45.5 cm???/m??? 16 - 28 cm???/m??? DOPPLER AV Peak Velocity 182.8 cm/s AV Peak Gradient 13.4 mmHg AV Mean Velocity 135.4 cm/s AV Mean Gradient 8.1 mmHg AV Velocity Time Integral 32.7 cm LVOT Peak Velocity 133.1 cm/s LVOT Peak Gradient 7.1 mmHg LVOT Velocity Time Integral 23.7 cm LVOT Stroke Volume 71.2 cm??? LVOT Stroke Volume Index 38.1 ml/m??? LVOT Cardiac Index 2924.7 cm???/min???m??? AV Area Cont Eq vti 2.2 cm??? AV Area Cont Eq pk 2.2 cm??? MV Area PHT 6.4 cm??? Mitral E Point Velocity 64.1 cm/s Mitral A Point Velocity 111.0 cm/s Mitral E to A Ratio 0.6 MV Deceleration Time 117.7 ms TR Peak Velocity 293.5 cm/s TR Peak Gradient 34.5 mmHg Right Atrial Pressure 10.0 mmHg Pulmonary Artery Systolic Pressu 44.5 mmHg Right Ventricular Systolic Press 44.5 mmHg PV Peak Velocity 152.1 cm/s PV Peak Gradient 9.3 mmHg FINDINGS Left Ventricle Left ventricular ejection fraction is estimated at 55-60 %. Mildly increased left ventricular diastolic volume. Left ventricular wall thickness normal. No obvious regional wall motion abnormalities. Right Ventricle Right ventricle not well visualized. Moderate pulmonary hypertension. Right Atrium Right atrium not well visualized. Left Atrium Severely increased left atrial volume. Mildly increased left atrial area. Mitral Valve Mitral valve thickened. Mitral annular calcification. No evidence for mitral valve prolapse. No mitral stenosis. Trace mitral regurgitation. Aortic Valve Trileaflet aortic valve. Diffuse thickening of the aortic valve cusps with reduced excursion. No aortic valve stenosis or regurgitation. Tricuspid Valve Structurally normal tricuspid valve. No tricuspid stenosis. Trace tricuspid regurgitation. Pulmonic Valve Pulmonic valve not well visualized. No pulmonic stenosis. No pulmonic regurgitation. Pericardium No pericardial effusion. Aorta Aortic annulus normal. CONCLUSIONS Technically difficult study for interpretation Normal LV systolic function Previewed by: Dr. Edis Lo MD (Electronically Signed) Final Date: 29 August 2024 12:05
[2024-08-29] MEDS: METOPROLOL TARTRATE 25 MG TAB PO SCH (12:25)
--- NOTE | 2024-08-29 12:55 | P.PN ---
Subjective HISTORY OF PRESENT ILLNESS: This is a 64-year-old female who does not follow with a earring maker. Patient was transferred from [facility] secondary to ventricular tachycardia. Patient does report that she initially went to [facility] secondary to chest pain that radiated into both of her shoulder blades. She also reports that she was very diaphoretic. Patient examined this morning the bedside. Patient's family is present. Patient currently denies any chest pain or pressure. She denies any shortness of breath. She remains on IV heparin. Vital signs are stable. No further episodes of ventricular tachycardia. 2D echo remains pending. PHYSICAL EXAM: VITAL SIGNS: Reviewed. GENERAL: Well-developed in no acute distress. NECK: Supple. No JVD or thyromegaly LUNGS: Respirations even and unlabored. Lungs essentially clear to auscultation bilaterally. HEART: Regular rate and rhythm. S1 and S2 heard. + systolic murmur EXTREMITIES: Normal range of motion. No clubbing or cyanosis. Peripheral pulses intact. No lower extremity edema ASSESSMENT: Ventricular tachycardia Non-STEMI History of DVT, on Eliquis outpatient Status post recent hiatal hernia repair History of colon cancer with metastasis to the liver, on chemotherapy outpatient (not recently due to hernia repair) PLAN: Eliquis remains on hold. Continue IV heparin Add metoprolol tartrate 25 mg twice a day Continue additional cardiac medications Continue telemetry monitoring N.p.o. at midnight Patient to undergo cardiac catheterization tomorrow with Dr. Edgar Further recommendations pending patient course Nurse practitioner note has been reviewed by physician. Signing provider agrees with the documented findings, assessment, and plan of care documented by [employer]GER [employer] as a scribe. Objective - Vital Signs Vital signs: Vital Signs Temp 98.0 F 08/29/24 08:00 Pulse 86 08/29/24 08:00 Resp 18 08/29/24 08:00 BP 125/75 08/29/24 08:00 Pulse Ox 94 L 08/29/24 08:00 FiO2 Intake & Output 08/28/24 08/29/24 08/29/24 18:59 06:59 18:59 Intake Total 287.287 Output Total 4000 550 Balance -4000 -262.713 Weight 78.7 kg Intake: Intake, IV Titration 287.287 Amount Heparin Sod,Pork in 0.45% 287.287 NaCl 25,000 unit In 0.45 % NaCl 1 250ml.bag @ 12 UNITS/KG/HR 9.798 mls/hr IV .Q24H [facility] Rx#: [id number] Output: Urine 4000 550 Other: Voiding Method Toilet Toilet External Catheter External Catheter # Bowel Movements 1 - Labs CBC & Chem 7: 08/29/24 06:07 08/29/24 06:07 Labs: Abnormal Lab Results - Last 24 Hours (Table) 08/28/24 08/29/24 08/29/24 Range/Units 11:43 06:07 06:07 WBC 14.5 H (3.8-10.6) k/uL RDW 20.2 H (11.5-15.5) % APTT 40.8 H (22.0-30.0) sec Sodium 133 L (137-145) mmol/L Glucose 130 H (74-99) mg/dL AST 58 H (14-36) U/L Alkaline Phosphatase 552 H (38-126) U/L TSH 5.820 H (0.465-4.680) mIU/L
[2024-08-29] MEDS: ACETAMINOPHEN TAB 325 MG TAB PO PRN (20:43)
[2024-08-30] MEDS: SODIUM CHLORIDE 0.9% 1,000 ML in EMPTY BAG 1 BAG IV SCH ×2 (01:00→17:57)
[2024-08-30] MEDS: ATORVASTATIN 80 MG TAB PO ONE (04:28)
[2024-08-30] MEDS: ASPIRIN 325 MG TAB PO ONE (04:28)
[2024-08-30] MEDS: CYCLOBENZAPRINE 5 MG TAB PO PRN (04:28)
[2024-08-30 06:17] LABS: Anisocytosis Moderate; HCT 36.2 % (34.0-46.0); HGB 11.9 gm/dL (11.4-16.0); Hypochromasia Slight; MCH 28.3 pg (25.0-35.0); MCHC 32.7 g/dL (31.0-37.0); MCV 86.3 fL (80.0-100.0); Mean Platelet Volume 7.7; Microcytosis Slight; Platelet Count 390 k/uL (150-450); RDW 20.1 % (11.5-15.5); WBC 14.9 k/uL (3.8-10.6)
[2024-08-30 06:30] LABS: African American GFR (CKD) >90 (>60 ml/min/1.73 sqM); Anion Gap 6 mmol/L; Blood Urea Nitrogen 17 mg/dL (7-17); Calcium 8.7 mg/dL (8.4-10.2); Carbon Dioxide 22 mmol/L (22-30); Chloride 107 mmol/L (98-107); Glucose 133 mg/dL (74-99); Magnesium 1.9 mg/dL (1.6-2.3); Non-African American GFR(CKD) >90 (>60 ml/min/1.73 sqM); Potassium 3.6 mmol/L (3.5-5.1); Sodium 135 mmol/L (137-145)
[2024-08-30] MEDS ORDERED: HEPARIN SODIUM,PORCINE (1 ML) 2,500 UNIT in SODIUM CHLORIDE 0.9% 250 ML IRRIGATION PRN (07:00)
[2024-08-30] MEDS ORDERED: HEPARIN SODIUM,PORCINE 10,000 UNIT in SODIUM CHLORIDE 0.9% 1,000 ML IRRIGATION PRN (07:00)
[2024-08-30] MEDS: IV FLUID CONTINUATION 1,000 ML IV ONE (12:08)
[2024-08-30] MEDS: fentaNYL (PF) 50 MCG/ML 2 ML AMP IVP ONE (12:22)
[2024-08-30] MEDS: MIDAZOLAM 2 MG/2 ML VIAL IVP ONE (12:24)
[2024-08-30] MEDS: LIDOCAINE 1% INJ 10MG/ML (20 ML MDV) SQ ONE (12:24)
[2024-08-30] MEDS: VERAPAMIL 2.5 MG/ML 2 ML AMP INTRAARTER ONE (12:29)
[2024-08-30] MEDS: SODIUM CHLORIDE 0.9% 1,000 ML IV ONE (12:30)
[2024-08-30] MEDS: TICAGRELOR 90 MG TAB PO ONE (13:05)
[2024-08-30] MEDS: IOPAMIDOL-370 100ML BTL INJ ONE ×3 (13:12→14:14)
--- NOTE | 2024-08-30 13:22 | P.CARDCATH ---
Date of Procedure: 08/30/24 Description of Procedure: DIAGNOSTIC CORONARY ANGIOGRAPHY and LEFT HEART CATH REPORT PROCEDURES PERFORMED: Left heart catheterization Selective coronary angiography Right subclavian angiogram Moderate conscious sedation 20 mins [Ultrasound assisted] Right radial access INDICATION: [Unstable angina] CONSENT: I have explained the procedural steps of above-mentioned procedures in layman's terms to the patient. I discussed the risks (including but not limited to stroke, emergent vascular or cardiac surgery or ), benefits and alternative therapies for the above-mentioned procedure. I discussed the risks of sedation/analgesia and blood product administration (if indicated). The patient has indicated understanding and acceptance of these risks. Conscious Sedation: Patient's ECG, heart rate, blood pressure, pulse oximetry were monitored throughout the duration of procedure under my direct supervision. [2] mg Versed and [50] mcg Fentanyl were used for induction of moderate conscious sedation. Total duration of moderate concious sedation 20 minutes. PROCEDURE: After explaining the risks, benefits and alternatives of the above mentioned procedures in detail to the patient, informed consent was obtained. Patient was taken to the catheterization lab, prepped and draped in usual sterile fashion using universal precuations. Ultrasound was used to identify the radial artery. 1% lidocaine was infiltrated over the right radial artery. A 6-Uruguayan sheath was placed and secured in the [facility] radial artery using modified Seldinger technique. The sheath was flushed and 5 mg verapamil was administered intra-arterially. J tipped wire was advanced under fluoroscopic guidance. The wire could not cross the subclavian artery to enter the aortic arch. Over the wire we passed a JR4 diagnostic catheter 5 Uruguayan. The wire was removed catheter was placed. Right subclavian artery angiogram was performed. It was noted that there is significant tortuosity in right subclavian artery. The Glidewire was utilized to enter the aortic arch. Over the wire the JR4 catheter was advanced to reach the aortic arch. The wire was removed catheter was flushed. 4500 units of IV heparin was given. JR4 catheter was manipulated to selectively engage the right coronary ostium. Right coronary angiogram was performed in different angiographic projection. Catheter was disengaged and fluoroscopy. The wire was advanced and with the help of the wire we crossed the aortic valve. Wire was removed and with the JR4 we obtained LV pressures. Pullback was performed across aortic valve under fluoroscopy. The catheter was exchanged over the wire for a 5 Uruguayan JL 3.5 diagnostic catheter. Wire was removed catheter was placed in catheter was manipulated to selectively the left coronary ostium. Left coronary angiogram was performed in different angiographic projections. Catheter was removed over the wire. Radial sheath was flushed. Wire was left in place. Sample was obtained for ACT. Decision was made to proceed without intervention for the left subclavian artery with Dr. Justice Complications: None Contrast used Isovue 50 mL Estimated blood loss less than 10 mL Challenges, right subclavian artery tortuosity. Glidewire was utilized which was successful. Catheters used JR4, JL 3.5. HEMODYNAMICS: Aortic Pressure: 120/65 mmHg. LV pressure: 125/8 mmHg. LVEDP 12 mmHg. There was no significant gradient across the aortic valve. SELECTIVE CORONARY ARTERIOGRAPHY: LEFT MAIN: The left main is short vessel. It bifurcates into the LAD and circumflex. Left main appears angiographically normal. LEFT ANTERIOR DESCENDING CORONARY ARTERY: LAD is a large caliber vessel which wraps around to the apex. Proximal and mid LAD has mild luminal irregularities and is otherwise patent. It gives rise to diagonal 1 and diagonal 2 which are medium caliber and appear angiographically patent. Distal LAD is angiographically patent. Decreased rest to small diagonal third branch which is angiographically patent. LEFT CIRCUMFLEX CORONARY ARTERY: It is nondominant vessel. Proximal LCx is diffusely diseased 70-80%. Mid portion of proximal LCx has a focal 80-90% stenosis. Proximal LCx gives a small OM1 branch. Mid LCx prior to giving OM 2 branch, is 99% subtotally occluded. There are left to left and right to left collaterals filling OM 2 which is a medium caliber vessel and is patent. OM 2 gets filled retrogradely and fills OM 3 in antegrade fashion. RIGHT CORONARY ARTERY: Dominant vessel. Proximal mid and distal RCA has 20% diffuse disease and is otherwise angiographically patent. Gives rise to a medium size PDA and PL branch which are angiographically patent. There are faint right to left collaterals filling OM 2. IMPRESSION: 99% mid LCx stenosis, CAMMIE I flow. Left to left collaterals filling OM2 retrogradely. 80% proximal LCx diffuse disease. 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
[2024-08-30] MEDS: niCARdipine Syringe (1,000 mcg/10 mL) INTRACORON ONE (13:47)
--- NOTE | 2024-08-30 14:02 | P.PN ---
Subjective Progress Note Date: 08/30/24 Hospital course: Patient is a very pleasant 64-year-old female with a past medical history of colon cancer (Stage IV, s/p colectomy 08/2021, following w/ Dr Morales, currently on ), deep vein thrombosis (on Eliqu), and a recent open hernia repair on 08/25/[address] in [address]. Pt presented to our facility as a transfer from [facility] emergency department for thoracic back/shoulder/chest pain and a reported run of sustained V-Tach. At [facility], pt was reported to have wide-complex tachydysrhythmia on EKG, suspected V-Tach and was started on amiodarone infusion. 2 EKGs were completed at [facility] showing wide QRS tachycardia: The first EKG revealing left bundle branch block with a QTc of 525 and the second EKG showing left ventricular pretreat with QRS widening and repolarization abnormality with a QTc 522 Pt underwent additional workup including a CT angiography of the chest which revealed no evidence of PE. Labs were reported to otherwise be unremarkable with negative troponin HS of 13.2. Upon arrival to our facility, patient reported full resolution of chest/thoracic/shoulder pain stating it resolved around 11:30 AM. Patient had completed 6 hours of amiodarone infusion at 1 mg/min and decreased to 0.5 mg/min. Vital signs upon arrival show blood pressure 128/75, heart rate 75, respiratory rate 18, and SpO2 of 93% on room air. EKG was completed showing normal sinus rhythm at 70 bpm with left ventricular hypertrophy T wave inversion lead III. Labs were completed and reviewed. CBC showing mild leukocytosis with WBC count of 10.9 otherwise normal findings. Coagulation profile normal findings. BMP unremarkable. Blood glucose 117. Magnesium 1.9. Troponin was elevated at 1.830. Patient started on low intensity heparin infusion. She was admitted under our services with consultation to cardiology. Troponins trending resulting at 1.830, 4.080, and 3.260. Physical exam: Patient seen and fully evaluated at bedside this morning. She was getting out of the shower and preparing to go down for cardiac catheterization later today. She denies any further episodes of chest pain or palpitations but does report having an episode of thoracic/back pain earlier this morning. Vital signs reviewed and stable. General: Nontoxic, no distress and appears stated age. Derm: Skin warm and dry, normal coloration for ethnicity. Head: Atraumatic, normocephalic and symmetric. Eyes: EOM's intact, no lid lag, and anicteric sclera Mouth: no lip lesions, mucus membranes moist Cardiovascular: regular rate and rhythm with normal S1S2, no murmur, positive posterior tibial pulses bilaterally, and cap refill < 2 seconds. Lungs: Respirations even, regular, and unlabored on room air. Lungs CTA bilaterally, no rhonchi, no rales, no wheezing, and no accessory muscle usage. Abdominal: soft, nontender to palpation, no guarding, no appreciable organomegaly Ext: ROM intact. No gross muscle atrophy, no edema, no contractures Neuro: Speech clear, face symmetrical and CN II-XII grossly intact with no noted focal neuro deficits Psych: Alert and oriented to person, place, time, and situation. Appropriate and pleasant affect. Assessment and Plan of Care: Ventricular tachycardia, sustained NSTEMI -Cardiology following, discussed with Cardiac ASSET RECOVERY SPECIALIST and patient being taken down for cardiac cath later today. -Troponins trending resulting at 1.830, 4.080, and 3.260. -Continue low intensity heparin infusion with close monitoring of PTT for goal therapeutic range of 45 to 79 seconds. Currently PTT therapeutic at 48.9. -Continue amlodipine 5 mg daily, amiodarone 200 mg twice daily, aspirin 81 mg daily, atorvastatin 80 mg daily, and losartan 50 mg daily. Cardiology also starting pt on metorprolol 25 mg BID this morning. -Patient to remain on continuous telemetry monitoring. -Echocardiogram completed showing a preserved EF of 55 to 60% Status post recent hiatal hernia repair -Patient day 5 postop. -Continue symptomatic care and pain management minus Tylenol 650 mg every 6 hours as needed for mild pain, tramadol 50 mg every 6 hours as needed for moderate pain, and morphine 4 mg IVP if needed for severe pain. -Continue dressing changes 2 times daily and as needed. -Encourage use of abdominal binder. -Incentive spirometer, encourage use 10-15 times hourly while awake. 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 Robson Morales -Not currently taking her Keytruda, has been on holiday for the past month and a half secondary to recent hernia repair. Hypertension -Continue medication regimen with amlodipine 5 mg daily and losartan 50 mg daily. History of Microcytic anemia, likely secondary to iron deficiency -Continue ferrous sulfate 325 mg daily. History of deep vein thrombosis -Maintained on Eliquis at home 5 mg twice daily, currently Eliquis held and pt on heparin infusion. Data and imaging reviewed: -Labs were completed and reviewed. CBC showing leukocytosis with WBC count of 14.9 otherwise normal findings. BMP showing mild hyponatremia with sodium of 135 and glucose of 133. Magnesium 1.9. PTT therapeutic at 48.9. TSH was elevated at 5.820 with normal free T4 of 1.85. -Vital signs reviewed. Blood pressure 114/62, heart rate 49, respiratory rate 16, temp 97.7 F, and SpO2 of 94% on room air. CODE STATUS: Full code DVT prophylaxis: Heparin infusion Discussed with: Patient, RN, and cardiology ASSET RECOVERY SPECIALIST Anticipated discharge date: Pending clinical course Anticipated discharge place: Home Patient was seen independently by Nurse Pracitioner. This document was prepared using Medig[employer] dictation software. Please allow for errors in spline rolling machine job setter, while rare they do occur. Jhonatan Bueno, MANASA rendered care for this patient independently, reviewed the findings and plan as documented in the note above and agree with plan. I did not physically speak with or examine the patient on this date. Objective - Vital Signs Vital signs: Vital Signs Temp 97.7 F 08/30/24 07:27 Pulse 49 L 08/30/24 07:58 Resp 16 08/30/24 07:27 BP 114/62 08/30/24 07:27 Pulse Ox 94 L 08/30/24 07:27 FiO2 Intake & Output 08/29/24 08/30/24 08/30/24 18:59 06:59 18:59 Intake Total 381.561 Balance 381.561 Weight 78.6 kg Intake: IV 10 Invasive Line 3 10 Intake, IV Titration 135.561 Amount Heparin Sod,Pork in 0.45% 135.561 NaCl 25,000 unit In 0.45 % NaCl 1 250ml.bag @ 12 UNITS/KG/HR 9.798 mls/hr IV .Q24H [facility] Rx#: [id number] Oral 236 Other: Voiding Method Toilet Toilet External Catheter # Voids 1 # Bowel Movements 1 1 - Labs CBC & Chem 7: 08/30/24 05:32 08/30/24 05:32 Labs: Abnormal Lab Results - Last 24 Hours (Table) 08/29/24 08/30/24 08/30/24 Range/Units 11:37 05:32 05:32 WBC 14.9 H (3.8-10.6) k/uL RDW 20.1 H (11.5-15.5) % APTT 47.7 H (22.0-30.0) sec Sodium 135 L (137-145) mmol/L Glucose 133 H (74-99) mg/dL 08/30/24 Range/Units 05:32 WBC (3.8-10.6) k/uL RDW (11.5-15.5) % APTT 48.9 H (22.0-30.0) sec Sodium (137-145) mmol/L Glucose (74-99) mg/dL
[2024-08-30] MEDS ORDERED: ATROPINE SULFATE 0.1 MG/ML 10ML SYRINGE IV PRN (14:23)
[2024-08-30] MEDS ORDERED: RX INFO: IV CONTRAST WAS GIVEN 1 EACH MISC MISCELLANE PRN (14:23)
[2024-08-30] MEDS ORDERED: MAG HYDROX/AL HYDROX/SIMETH 30 ML CUP PO PRN (14:23)
[2024-08-30] MEDS ORDERED: ZOLPIDEM 5 MG TAB PO PRN (14:23)
[2024-08-30] MEDS ORDERED: NITROGLYCERIN SL TABS 0.4 MG TAB SUBLINGUAL PRN (14:23)
--- NOTE | 2024-08-30 14:34 | P.CARDCATH ---
Date of Procedure: 08/30/24 Description of Procedure: PERCUTANEOUS TRANSLUMINAL CORONARY ANGIOPLASTY CLINICAL INFORMATION: The patient is a 64-year-old female with known history of hypertension who presented with ventricular tachycardia and evidence of non- STEMI, she underwent coronary angiography by Dr Edgar and was found to have tot ally occluded mid left circumflex with retrograde filling of the OM. Recommendations were made regarding angioplasty and stenting. The procedure as well as the risks and the complications were discussed with the patient who was in full understanding and agreement. PROCEDURE: A 6 Kazakh CLS 3.5 guiding catheter was introduced into the system. After cannulating the left main, attempt to advance a 0.014 BMW J-wire were unsuccessful, subsequently a 0.014 whisper J was advanced across the lesion and positioned distally with the help of a fine cross microcatheter. Attempt to advance the microcatheter through the total occlusion was unsuccessful, it was minimal and subsequently a 1.0 x 8 mm sapphire balloon was advanced and multiple inflation atmospheres were done. Subsequently using the microcatheter the wire was exchanged to a 0.014 BMW J-wire. Following that a 2.0 x 12 trek balloon was advanced and inflated at 8 atmosphere and multiple segment. After removing the balloon a [employer] [place] eye IVUS catheter was advanced and revealed a distal lumen measuring 2.5 to 3 mm with mild calcification. The wire was in the lumen. Following that a 2.5 x 23 mm Xience chaz point stent was deployed. It was dilated at 14 kristine. After removing the balloon there was evidence of no reflow distally. Patient received multiple doses of nicardipine. There was some improvement but remained with dye hanging. The bifurcation of the obtuse marginal branch and AV groove were noted. The patient was pain-free and there was no EKG changes. The decision was made to stop at that time. After the last inflation, after appropriate wait, the balloon and the guidewire were withdrawn back into the guiding catheter. Images were obtained and repeated. Those images reveal stable successful stenting with no reflow distally. At that point, the guiding catheter, the balloon, and guidewire were removed. The sheath was removed. Hemostasis was obtained with deployment of a TR band. There were no immediate complications. The patient was returned to the room in stable condition. Of note, the patient received additional 4000 units of heparin as well as Brilinta. His ACT was followed. There was no immediate complications. Her ACT was monitored. She had no EKG changes or chest discomfort. RESULTS: Successful stenting of the mid left circumflex with reduction of stenosis from 100% to less than 5% with no reflow distally, IVUS imaging was performed. The first obtuse marginal branch was chronically occluded with retrograde filling as well. RECOMMENDATIONS: The patient will continue on aspirin and Brilinta for 1 week then she will stop the aspirin and continue on Brilinta and Eliquis for 1 year. She will be followed closely with aggressive coronary risks modifications, attempting to maintain LDL below 70 mg /dL. The findings and recommendations were discussed with the patient who was in full understanding and agreement. Attempt to call the family were unsuccessful Duration of sedation: 68 minutes
[2024-08-30] MEDS: TICAGRELOR 90 MG TAB PO SCH (20:10)
[2024-08-30] MEDS: LOSARTAN 50 MG TAB PO SCH (20:10)
[2024-08-31 06:57] LABS: Anisocytosis Moderate; HCT 37.2 % (34.0-46.0); HGB 11.6 gm/dL (11.4-16.0); Hypochromasia Slight; MCH 27.1 pg (25.0-35.0); MCHC 31.3 g/dL (31.0-37.0); MCV 86.5 fL (80.0-100.0); Microcytosis Slight; Platelet Count 403 k/uL (150-450); RDW 20.4 % (11.5-15.5); WBC 15.2 k/uL (3.8-10.6)
[2024-08-31 07:41] LABS: ALT 22 U/L (4-34); AST 42 U/L (14-36); African American GFR (CKD) >90 (>60 ml/min/1.73 sqM); Albumin 3.1 g/dL (3.5-5.0); Alkaline Phosphatase 468 U/L (38-126); Anion Gap 9 mmol/L; Blood Urea Nitrogen 16 mg/dL (7-17); Calcium 8.9 mg/dL (8.4-10.2); Carbon Dioxide 21 mmol/L (22-30); Chloride 104 mmol/L (98-107); Glucose 115 mg/dL (74-99); Magnesium 1.9 mg/dL (1.6-2.3); Non-African American GFR(CKD) >90 (>60 ml/min/1.73 sqM); Sodium 134 mmol/L (137-145); Total Bilirubin 0.9 mg/dL (0.2-1.3); Total Protein 5.9 g/dL (6.3-8.2)
[2024-08-31] MEDS: AMIODARONE 200 MG TAB PO SCH (08:44)
--- NOTE | 2024-08-31 12:01 | P.PN ---
Subjective HISTORY OF PRESENT ILLNESS: This is a 64-year-old female who does not follow with a medical equipment technician. Patient was transferred from [facility] secondary to ventricular tachycardia. Patient does report that she initially went to [facility] secondary to chest pain that radiated into both of her shoulder blades. She also reports that she was very diaphoretic. Patient examined this morning the bedside. Patient's family is present. Patient currently denies any chest pain or pressure. She denies any shortness of breath. She remains on IV heparin. Vital signs are stable. No further episodes of ventricular tachycardia. 2D echo remains pending. 08/31/2024 Patient underwent cardiac catheterization yesterday with Dr. 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 Patient underwent stenting of the mid left circumflex with reduction of stenosis from 100% to less than 5% with no reflow distally, IVUS imaging was performed. First obtuse marginal branch was chronically occluded with retrograde filling as well. Patient examined this morning at the bedside. Patient currently denies chest pain or pressure. She denies any shortness of breath. Patient states that she has not been up out of bed yet this morning. Vital signs are stable. Echocardiogram completed revealing ejection fraction 55 to 60%, moderate pulmonary pretension, trace MR, trace TR PHYSICAL EXAM: VITAL SIGNS: Reviewed. GENERAL: Well-developed in no acute distress. NECK: Supple. No JVD or thyromegaly LUNGS: Respirations even and unlabored. Lungs essentially clear to auscultation bilaterally. HEART: Regular rate and rhythm. S1 and S2 heard. + systolic murmur EXTREMITIES: Normal range of motion. No clubbing or cyanosis. Peripheral pulses intact. No lower extremity edema ASSESSMENT: Ventricular tachycardia Non-STEMI, status post cardiac catheterization with stenting of the mid left circumflex History of DVT, on Eliquis outpatient Status post recent hiatal hernia repair History of colon cancer with metastasis to the liver, on chemotherapy outpatient (not recently due to hernia repair) Moderate pulmonary hypertension PLAN: Continue triple therapy with aspirin, Brilinta, and Eliquis. After 1 week, discontinue aspirin Continue additional cardiac medications Increase activity as tolerated Continue telemetry monitoring Anticipate discharge home tomorrow if patient remains stable Further recommendations pending patient course Nurse practitioner note has been reviewed by physician. Signing provider agrees with the documented findings, assessment, and plan of care documented by GAMING HOST as a scribe. Objective - Vital Signs Vital signs: Vital Signs Temp 97.9 F 08/31/24 11:01 Pulse 69 08/31/24 11:01 Resp 16 08/31/24 11:01 BP 113/66 08/31/24 11:01 Pulse Ox 94 L 08/31/24 11:01 FiO2 Intake & Output 08/30/24 08/31/24 08/31/24 18:59 06:59 18:59 Intake Total 350 30 180 Output Total 1800 700 Balance -1450 -670 180 Weight 77.2 kg Intake: IV 350 30 Invasive Line 3 20 Invasive Line 4 10 Oral 180 Output: Urine 1800 700 Other: Voiding Method Toilet Toilet # Voids 1 # Bowel Movements 0 - Labs CBC & Chem 7: 08/31/24 05:56 08/31/24 05:56 Labs: Abnormal Lab Results - Last 24 Hours (Table) 08/31/24 08/31/24 Range/Units 05:56 05:56 WBC 15.2 H (3.8-10.6) k/uL RDW 20.4 H (11.5-15.5) % Sodium 134 L (137-145) mmol/L Carbon Dioxide 21 L (22-30) mmol/L Glucose 115 H (74-99) mg/dL AST 42 H (14-36) U/L Alkaline Phosphatase 468 H (38-126) U/L Total Protein 5.9 L (6.3-8.2) g/dL Albumin 3.1 L (3.5-5.0) g/dL
--- NOTE | 2024-08-31 13:57 | P.PN ---
Subjective Progress Note Date: 08/31/24 Hospital course: Patient is a very pleasant 64-year-old female with a past medical history of colon cancer (Stage IV, s/p colectomy 08/2021, following w/ Dr Morales, currently on hol), deep vein thrombosis (on Eliquis), and a recent open hernia repair on 08/25/[address]. Pt presented to our facility as a transfer from [place] emergency department for thoracic back/shoulder/chest pain and a reported run of sustained V-Tach. At [place], pt was reported to have wide-complex tachydysrhythmia on EKG, suspected V-Tach and was started on amiodarone infusion. 2 EKGs were completed at [facility] showing wide QRS tachycardia: The first EKG revealing left bundle branch block with a QTc of 525 and the second EKG showing left ventricular pretreat with QRS widening and repolarization abnormality with a QTc 522 Pt underwent additional workup including a CT angiography of the chest which revealed no evidence of PE. Labs were reported to otherwise be unremarkable with negative troponin HS of 13.2. Upon arrival to our facility, patient reported full resolution of chest/thoracic/shoulder pain stating it resolved around 11:30 AM. Patient had completed 6 hours of amiodarone infusion at 1 mg/min and decreased to 0.5 mg/min. Vital signs upon arrival show blood pressure 128/75, heart rate 75, respiratory rate 18, and SpO2 of 93% on room air. EKG was completed showing normal sinus rhythm at 70 bpm with left ventricular hypertrophy T wave inversion lead III. Labs were completed and reviewed. CBC showing mild leukocytosis with WBC count of 10.9 otherwise normal findings. Coagulation profile normal findings. BMP unremarkable. Blood glucose 117. Magnesium 1.9. Troponin was elevated at 1.830. Patient started on low intensity heparin infusion. She was admitted under our services with consultation to cardiology. Troponins trending resulting at 1.830, 4.080, and 3.260. Physical exam: Patient seen and fully evaluated at bedside this morning. She was resting in bed at time of assessment and easily awoken via verbal stimuli. Patient currently reports total resolution of previous reported chest pain/discomfort and only complaint is feeling tired. She denies having any palpitations, back pain, shortness of breath, or any other complaints at this time. Vital signs reviewed and stable. General: Nontoxic, no distress and appears stated age. Derm: Skin warm and dry, normal coloration for ethnicity. Head: Atraumatic, normocephalic and symmetric. Eyes: EOM's intact, no lid lag, and anicteric sclera Mouth: no lip lesions, mucus membranes moist Cardiovascular: regular rate and rhythm with normal S1S2, no murmur, positive posterior tibial pulses bilaterally, and cap refill < 2 seconds. Lungs: Respirations even, regular, and unlabored on room air. Lungs CTA bila terally, no rhonchi, no rales, no wheezing, and no accessory muscle usage. Abdominal: soft, nontender to palpation, no guarding, no appreciable organomegaly Ext: ROM intact. No gross muscle atrophy, no edema, no contractures Neuro: Speech clear, face symmetrical and CN II-XII grossly intact with no noted focal neuro deficits Psych: Alert and oriented to person, place, time, and situation. Appropriate and pleasant affect. Assessment and Plan of Care: Ventricular tachycardia, sustained NSTEMI -Cardiology following, discussed with Cardiac TECHNICAL SERVICES REP and patient being taken down for cardiac cath later today. -Patient underwent cardiac catheterization on 08/30/2024 resulting in successful stenting to mid left circumflex -Per cardiology patient to continue triple therapy with aspirin, Brilinta, and Eliquis x 1 week then discontinue aspirin and remain on Brilinta and Eliquis indefinitely. -Continue low intensity heparin infusion with close monitoring of PTT for goal therapeutic range of 45 to 79 seconds. Currently PTT therapeutic at 48.9. -Continue amlodipine 5 mg daily, amiodarone 200 mg twice daily, aspirin 81 mg daily, metoprolol 25 mg twice daily, atorvastatin 80 mg daily, and losartan 50 mg daily. . -Patient to remain on continuous telemetry monitoring. -Echocardiogram completed showing a preserved EF of 55 to 60% Status post recent hiatal hernia repair -Patient day 6 postop. -Continue symptomatic care and pain management minus Tylenol 650 mg every 6 hours as needed for mild pain, tramadol 50 mg every 6 hours as needed for moderate pain, and morphine 4 mg IVP if needed for severe pain. -Continue dressing changes 2 times daily and as needed. -Encourage use of abdominal binder. -Incentive spirometer, encourage use 10-15 times hourly while awake. 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 Robson Morales -Not currently taking her Keytruda, has been on holiday for the past month and a half secondary to recent hernia repair. Hypertension -Continue medication regimen with amlodipine 5 mg daily metoprolol 25 mg twice daily and losartan 50 mg daily. History of Microcytic anemia, likely secondary to iron deficiency -Continue ferrous sulfate 325 mg daily. History of deep vein thrombosis -Maintained on Eliquis at home 5 mg twice daily, currently Eliquis held and pt on heparin infusion. Data and imaging reviewed: -Morning labs reviewed. CBC showing leukocytosis with WBC count of 15.2 othe rwise normal findings. BMP showing mild hyponatremia sodium of 134 and hypocarbia with bicarb of 21 otherwise normal findings. Blood glucose 115. Magnesium 1.9. Liver profile showing continued elevated but improving liver enzymes with AST of 42 and alkaline phosphatase of 468. -Vital signs reviewed. Blood pressure 125/66, heart rate 70, respiratory rate 20, temp 98.4 F, and SpO2 of 94% on room air. CODE STATUS: Full code DVT prophylaxis: Heparin infusion Discussed with: Patient, RN, and cardiology TECHNICAL SERVICES REP Anticipated discharge date: Pending clinical course Anticipated discharge place: Home Patient was seen independently by Nurse Pracitioner. This document was prepared using [employer] dictation software. Please allow for errors in psychiatric nursing assistant, while rare they do occur. Jhonatan Bueno NP rendered care for this patient independently, reviewed the findings and plan as documented in the note above and agree with plan. I did not physically speak with or examine the patient on this date. Objective - Vital Signs Vital signs: Vital Signs Temp 98.4 F 08/31/24 07:19 Pulse 70 08/31/24 07:19 Resp 20 08/31/24 07:19 BP 125/66 08/31/24 07:19 Pulse Ox 94 L 08/31/24 07:19 FiO2 Intake & Output 08/30/24 08/31/24 08/31/24 18:59 06:59 18:59 Intake Total 350 30 180 Output Total 1800 700 Balance -1450 -670 180 Weight 77.2 kg Intake: IV 350 30 Invasive Line 3 20 Invasive Line 4 10 Oral 180 Output: Urine 1800 700 Other: Voiding Method Toilet # Voids 1 # Bowel Movements 0 - Labs CBC & Chem 7: 08/31/24 05:56 08/31/24 05:56 Labs: Abnormal Lab Results - Last 24 Hours (Table) 08/31/24 08/31/24 Range/Units 05:56 05:56 WBC 15.2 H (3.8-10.6) k/uL RDW 20.4 H (11.5-15.5) % Sodium 134 L (137-145) mmol/L Carbon Dioxide 21 L (22-30) mmol/L Glucose 115 H (74-99) mg/dL AST 42 H (14-36) U/L Alkaline Phosphatase 468 H (38-126) U/L Total Protein 5.9 L (6.3-8.2) g/dL Albumin 3.1 L (3.5-5.0) g/dL
[2024-08-31 14:23] VITALS: BMI 29.2
[2024-08-31] MEDS: APIXABAN 5 MG TAB PO SCH (20:14)
[2024-09-01 09:55] VITALS: TEMP 98.2
[2024-09-01 11:17] VITALS: BP 113/66; PULSE 61; RESP 16
--- NOTE | 2024-09-01 11:37 | P.DS ---
Providers Date of admission: 08/27/24 18:33 Expected date of discharge: 09/01/24 Attending physician: Blaine Rodriguez Consults: 08/27/24 18:33 Consult Physician Routine Consulting Provider: Shay Edgar Consult Reason/Comments: vtach Do you want consulting provider notified?: Yes 08/30/24 14:23 Consult Physician Routine Consulting Provider: [facility] Consult Reason/Comments: Post Interventional Patient Do you want consulting provider notified?: Already Contacted Primary care physician: Derick Strong MD Hospital Course: Discharge Diagnosis: Ventricular tachycardia, sustained NSTEMI Status post recent hiatal hernia repair. Patient is postop day 7. Recommend continuing dressing changes and use of abdominal binder and to follow-up outpatient with your general surgeon as previously scheduled. 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 Follows with oncologist, Dr. Robson Morales Not currently taking her Keytruda, has been on holiday for the past month and a half secondary to recent hernia repair. Recommend continued outpatient follow-up with oncologist and management further recommendations. Hypertension History of Microcytic anemia, likely secondary to iron deficiency. Continue ferrous sulfate 325 mg daily. History of deep vein thrombosis. Maintained on Eliquis at home 5 mg twice daily. Hospital course: Patient is a very pleasant 64-year-old female with a past medical history of colon cancer (Stage IV, s/p colectomy 08/2021, following w/ Dr Morales, currently on Keytruda holiday), deep vein thrombosis (on Eliquis), and a recent open hernia repair on 08/25/[address]. Pt presented to our facility as a transfer from [place] emergency department for thoracic back/shoulder/chest pain and a reported run of sustained V-Tach. At [place], pt was reported to have wide-complex tachydysrhythmia on EKG, suspected V-Tach and was started on amiodarone infusion. 2 EKGs were completed at [facility] showing wide QRS tachycardia: The first EKG revealing left bundle branch block with a QTc of 525 and the second EKG showing left ventricular pretreat with QRS widening and repolarization abnormality with a QTc 522 Pt underwent additional workup including a CT angiography of the chest which revealed no evidence of PE. Labs were reported to otherwise be unremarkable with negative troponin HS of 13.2. Upon arrival to our facility, patient reported full resolution of chest/thoracic/shoulder pain stating it resolved around 11:30 AM. Patient had completed 6 hours of amiodarone infusion at 1 mg/min and decreased to 0.5 mg/min. Vital signs upon arrival show blood pressure 128/75, heart rate 75, respiratory rate 18, and SpO2 of 93% on room air. EKG was completed showing normal sinus rhythm at 70 bpm with left ventricular hypertrophy T wave inversion lead III. Labs were completed and reviewed. CBC showing mild leukocytosis with WBC count of 10.9 otherwise normal findings. Coagulation profile normal findings. BMP unremarkable. Blood glucose 117. Magnesium 1.9. Troponin was elevated at 1.830. Patient started on low intensity heparin infusion and amiodarone infusion. She was admitted under our services with consultation to cardiology. Troponins trending resulting at 1.830, 4.080, and 3.260. Echocardiogram completed showing a preserved EF of 55 to 60%. Patient underwent cardiac catheterization on 08/30/20 resulting in successful stenting to mid left circumflex. Business Intelligence Etl Developer clearing patient from cardiac perspective for discharge recommending patient continue triple therapy with aspirin, Brilinta, and Eliquis x 1 week then discontinue aspirin and remain on Brilinta and Eliquis indefinitely. Patient is medically optimized and stable for discharge at this time. Patient to follow-up with PCP in 1 to 2 days, generation mechanic helper in 1 week, and general surgeon as previously scheduled for recent hernia repair. Discharge instructions reviewed with patient at bedside and all questions answered. Physical exam: Patient seen and fully evaluated at bedside this morning. Patient reports being free from any further episodes of chest pain, back pain, palpitations, or any other complaints since completion of cardiac catheterization on 08/30/2024. She reports feeling eager and ready to go home. Vital signs reviewed and stable. General: Nontoxic, no distress and appears stated age. Derm: Skin warm and dry, normal coloration for ethnicity. Head: Atraumatic, normocephalic and symmetric. Eyes: EOM's intact, no lid lag, and anicteric sclera Mouth: no lip lesions, mucus membranes moist Cardiovascular: regular rate and rhythm with normal S1S2, no murmur, positive posterior tibial pulses bilaterally, and cap refill < 2 seconds. Lungs: Respirations even, regular, and unlabored on room air. Lungs CTA bilaterally, no rhonchi, no rales, no wheezing, and no accessory muscle usage. Abdominal: soft, nontender to palpation, no guarding, no appreciable organomegaly Ext: ROM intact. No gross muscle atrophy, no edema, no contractures. Cardiac cath access site right wrist with minimal bruising, no swelling or hematoma. Neuro: Speech clear, face symmetrical and CN II-XII grossly intact with no noted focal neuro deficits Psych: Alert and oriented to person, place, time, and situation. Appropriate and pleasant affect. A total of 41 minutes of time were spent preparing this complex discharge summary. Pt was discharged on 09/01/2024 at 11:24 AM. Patient was seen independently by Nurse Practitioner. This document was prepared using [employer] dictation software. Please allow for errors in in service coordinator while rare they do occur. Jhonatan Bueno NP rendered care for this patient independently, reviewed the findings and plan as documented in the note above. I did not physically speak with or examine the patient on this date. Patient Condition at Discharge: Stable Plan - Discharge Summary Discharge Rx Participant: Yes New Discharge Prescriptions: New Aspirin 81 mg PO DAILY 5 Days #5 tab Amiodarone [Cordarone] 200 mg PO DAILY 30 Days #30 tab Losartan [Cozaar] 50 mg PO BID 30 Days #60 tab Atorvastatin [Lipitor] 80 mg PO DAILY 30 Days #30 tab Ticagrelor [Brilinta] 90 mg PO BID 30 Days #60 tab Metoprolol Tartrate [Lopressor] 25 mg PO BID 30 Days #60 tab Continue Cyanocobalamin [Vitamin B-12] 1,000 mcg PO DAILY Calcium Carbonate [Calcium] 600 mg PO DAILY Apixaban [Eliquis] 5 mg PO BID Zinc Gluconate [Zinc] 50 mg PO DAILY Acetaminophen 500 - 1,000 mg PO TID PRN MDD 3,000mg PRN Reason: Pain Magnesium Oxide [Mag-Ox] 400 mg PO DAILY Ascorbic Acid [Vitamin C] 1,000 mg PO DAILY Calcium Carbonate [Calcium] 600 mg PO DAILY traMADol HCL 50 mg PO Q6H PRN PRN Reason: Pain Discontinued amLODIPine [Norvasc] 10 mg PO DAILY 14 Days #14 tablet Ibuprofen [Motrin] 400 mg PO Q3H PRN MDD 2,800mg PRN Reason: Pain No Action Cyclobenzaprine [Flexeril] 5 mg PO TID PRN PRN Reason: Pain Ferrous Sulfate [Feosol] 325 mg PO DAILY Discharge Medication List Calcium Carbonate [Calcium] 600 mg PO DAILY 12/05/21 [History] Cyanocobalamin [Vitamin B-12] 1,000 mcg PO DAILY 12/05/21 [History] Apixaban [Eliquis] 5 mg PO BID 08/31/22 [History] Ascorbic Acid [Vitamin C] 1,000 mg PO DAILY 11/13/22 [History] Zinc Gluconate [Zinc] 50 mg PO DAILY 11/13/22 [History] Acetaminophen 500 - 1,000 mg PO TID PRN MDD 3,000mg 08/27/24 [History] Calcium Carbonate [Calcium] 600 mg PO DAILY 08/27/24 [History] Cyclobenzaprine [Flexeril] 5 mg PO TID PRN 08/27/24 [History] Ferrous Sulfate [Feosol] 325 mg PO DAILY 08/27/24 [History] Magnesium Oxide [Mag-Ox] 400 mg PO DAILY 08/27/24 [History] traMADol HCL 50 mg PO Q6H PRN 08/27/24 [History] Amiodarone [Cordarone] 200 mg PO DAILY 30 Days #30 tab 09/01/24 [Rx] Aspirin 81 mg PO DAILY 5 Days #5 tab 09/01/24 [Rx] Atorvastatin [Lipitor] 80 mg PO DAILY 30 Days #30 tab 09/01/24 [Rx] Losartan [Cozaar] 50 mg PO BID 30 Days #60 tab 09/01/24 [Rx] Metoprolol Tartrate [Lopressor] 25 mg PO BID 30 Days #60 tab 09/01/24 [Rx] Ticagrelor [Brilinta] 90 mg PO BID 30 Days #60 tab 09/01/24 [Rx] Follow up Appointment(s)/Referral(s): Shay Edgar MD [Medical Doctor] - 1 Week Derick Strong MD [Primary Care Provider] - 1-2 days Patient Instructions/Handouts: Heart Attack (DC), Carotid Artery Stent Placement (DC) Activity/Diet/Wound Care/Special Instructions: Activity: As tolerated. Take breaks as needed. Diet: Heart healthy and carb consistent diet. Avoid salts, or foods with hidden salts such as canned or boxed foods and frozen dinners. Extra salt makes your heart work harder and traps the fluid in your body for longer. Special Instructions: Take all of your medications as directed and remember to keep all of your doctor's appointments and follow-up as needed. As discussed, continue triple therapy with aspirin, Brilinta, and Eliquis x 1 week then discontinue aspirin and remain on Brilinta and Eliquis indefinitely. Thank you for allowing us to participate in your care, it was truly a pleasure having you for our patient!!! . Discharge Disposition: HOME SELF-CARE
--- NOTE | 2024-09-01 12:21 | P.PN ---
Subjective HISTORY OF PRESENT ILLNESS: This is a 64-year-old female who does not follow with a customer engineer. Patient was transferred from [facility] secondary to ventricular tachycardia. Patient does report that she initially went to [facility] secondary to chest pain that radiated into both of her shoulder blades. She also reports that she was very diaphoretic. Patient examined this morning the bedside. Patient's family is present. Patient currently denies any chest pain or pressure. She denies any shortness of breath. She remains on IV heparin. Vital signs are stable. No further episodes of ventricular tachycardia. 2D echo remains pending. 08/31/2024 Patient underwent cardiac catheterization yesterday with Dr. 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 Patient underwent stenting of the mid left circumflex with reduction of stenosis from 100% to less than 5% with no reflow distally, IVUS imaging was performed. First obtuse marginal branch was chronically occluded with retrograde filling as well. Patient examined this morning at the bedside. Patient currently denies chest pain or pressure. She denies any shortness of breath. Patient states that she has not been up out of bed yet this morning. Vital signs are stable. Echocardiogram completed revealing ejection fraction 55 to 60%, moderate pulmonary pretension, trace MR, trace TR 09/01/2024 Patient examined this morning at bedside. Patient currently denies chest pain or pressure. She denies shortness of breath. Vital signs are stable. Patient is hoping to be discharged home today. PHYSICAL EXAM: VITAL SIGNS: Reviewed. GENERAL: Well-developed in no acute distress. NECK: Supple. No JVD or thyromegaly LUNGS: Respirations even and unlabored. Lungs essentially clear to auscultation bilaterally. HEART: Regular rate and rhythm. S1 and S2 heard. + systolic murmur EXTREMITIES: Normal range of motion. No clubbing or cyanosis. Peripheral pulses intact. No lower extremity edema ASSESSMENT: Ventricular tachycardia Non-STEMI, status post cardiac catheterization with stenting of the mid left circumflex History of DVT, on Eliquis outpatient Status post recent hiatal hernia repair History of colon cancer with metastasis to the liver, on chemotherapy outpatient (not recently due to hernia repair) Moderate pulmonary hypertension PLAN: Continue triple therapy with aspirin, Brilinta, and Eliquis. After 1 week, discontinue aspirin Continue additional cardiac medications Increase activity as tolerated Patient is stable for discharge home today Nurse practitioner note has been reviewed by physician. Signing provider agrees with the documented findings, assessment, and plan of care documented by PROFESSOR OF ENVIRONMENTAL STUDIES as a scribe. Objective - Vital Signs Vital signs: Vital Signs Temp 98.2 F 09/01/24 08:00 Pulse 61 09/01/24 11:15 Resp 16 09/01/24 11:15 BP 113/66 09/01/24 11:15 Pulse Ox 95 09/01/24 11:15 FiO2 Intake & Output 08/31/24 09/01/24 09/01/24 18:59 06:59 18:59 Intake Total 540 118 Output Total 225 Balance 540 -107 Weight 77.2 kg Intake: Oral 540 118 Output: Urine 225 Other: Voiding Method Toilet Toilet Toilet # Voids 2 2 1 - Labs CBC & Chem 7: 08/31/24 05:56 08/31/24 05:56
== END 2024-09-01 13:13 | disposition home or self-care (01) | DRG 322 ==
LOC: EC 17:20 → 3SCARD 18:33
PROVIDERS: ADMIT Student in an Organized Health Care Education/Training Program; ATTEND Student in an Organized Health Care Education/Training Program
PROC: B2111ZZ Fluoroscopy of Multiple Coronary Arteries using Low Osmolar Contrast (ICD-10-PCS; 2024-08-30)
PROC: B2151ZZ Fluoroscopy of Left Heart using Low Osmolar Contrast (ICD-10-PCS; 2024-08-30)
PROC: 027034Z Dilation of Coronary Artery, One Artery with Drug-eluting Intraluminal Device, Percutaneous Approach (ICD-10-PCS; principal; 2024-08-30 11:00)
PROC: B240ZZ3 Ultrasonography of Single Coronary Artery, Intravascular (ICD-10-PCS; 2024-08-30 11:00)
PROC: 4A023N7 Measurement of Cardiac Sampling and Pressure, Left Heart, Percutaneous Approach (ICD-10-PCS; 2024-08-30 11:00)
DX: I21.4 Non-ST elevation (NSTEMI) myocardial infarction (principal); C78.7 Secondary malignant neoplasm of liver and intrahepatic bile duct; I47.20 Ventricular tachycardia, unspecified; I10 Essential (primary) hypertension; D50.9 Iron deficiency anemia, unspecified; I27.20 Pulmonary hypertension, unspecified; I25.110 Atherosclerotic heart disease of native coronary artery with unstable angina pectoris; I44.7 Left bundle-branch block, unspecified; Z79.01 Long term (current) use of anticoagulants; Z79.82 Long term (current) use of aspirin; Z79.899 Other long term (current) drug therapy; Z85.038 Personal history of other malignant neoplasm of large intestine; Z85.42 Personal history of malignant neoplasm of other parts of uterus; Z86.718 Personal history of other venous thrombosis and embolism; Z87.891 Personal history of nicotine dependence; Z90.49 Acquired absence of other specified parts of digestive tract
CPT/HCPCS: 36415; 80048; 80053; 83735; 84439; 84443; 84484; 85025; 85027; 85610; 85730; 92978; 93005; 93306; 93458; 94760; 96365; 96366; 96368; 96375; 99291

== ENCOUNTER 2024-09-03 19:13 | Inpatient (IN) | payer MEDICARE, OTHER ==
--- NOTE | 2024-09-03 19:37 | ED ---
General Adult HPI - General Chief complaint: Back Pain/Injury Stated complaint: post op/severe back pain Time Seen by Provider: 09/03/24 19:25 Source: patient, RN notes reviewed, old records reviewed Mode of arrival: wheelchair Limitations: no limitations - History of Present Illness Initial comments: Patient is a 64-year-old female presents emergency department complaining of mid back pain. Stated it started approximate hour and a half ago. Was instructed come the emergency department if she began experiencing any pain. Patient also has a history of colon cancer with mets to the liver, recent hiatal hernia surgery completed last month, uterine cancer, ascites. Patient is currently on Eliquis and Brilinta. Has a history of a recent heart catheterization with stent placement on August 30. Patient states she was just sitting there when the pain started. Is uncertain if it is related to musculoskeletal or not. States it does not radiate. Denies any diaphoresis. Denies nausea or vomiting. Denies any headaches or weakness. Denies any anterior chest wall pain. Denies shortness of breath. Denies any fevers or chills. States she took a Flexeril at home and without it improving presents for further evaluation. Describes the pain as a sharp, achy pain. Presents for further evaluation. - Related Data Home Medications Medication Instructions Recorded Confirmed Calcium Carbonate [Calcium] 600 mg PO DAILY 12/05/21 08/27/24 Cyanocobalamin [Vitamin B-12] 1,000 mcg PO DAILY 12/05/21 08/27/24 Apixaban [Eliquis] 5 mg PO BID 08/31/22 08/27/24 Ascorbic Acid [Vitamin C] 1,000 mg PO DAILY 11/13/22 08/27/24 Zinc Gluconate [Zinc] 50 mg PO DAILY 11/13/22 08/27/24 Acetaminophen 500 - 1,000 mg PO TID PRN MDD 08/27/24 08/27/24 3,000mg Calcium Carbonate [Calcium] 600 mg PO DAILY 08/27/24 08/27/24 Cyclobenzaprine [Flexeril] 5 mg PO TID PRN 08/27/24 08/27/24 Ferrous Sulfate [Feosol] 325 mg PO DAILY 08/27/24 08/27/24 Magnesium Oxide [Mag-Ox] 400 mg PO DAILY 08/27/24 08/27/24 traMADol HCL 50 mg PO Q6H PRN 08/27/24 08/27/24 Previous Rx's Medication Instructions Recorded Amiodarone [Cordarone] 200 mg PO DAILY 30 Days #30 tab 09/01/24 Aspirin 81 mg PO DAILY 5 Days #5 tab 09/01/24 Atorvastatin [Lipitor] 80 mg PO DAILY 30 Days #30 tab 09/01/24 Losartan [Cozaar] 50 mg PO BID 30 Days #60 tab 09/01/24 Metoprolol Tartrate [Lopressor] 25 mg PO BID 30 Days #60 tab 09/01/24 Ticagrelor [Brilinta] 90 mg PO BID 30 Days #60 tab 09/01/24 Allergies Allergy/AdvReac Type Severity Reaction Status Date / Time No Known Allergies Allergy Verified 09/03/24 19:15 Review of Systems ROS Statement: Those systems with pertinent positive or pertinent negative responses have been documented in the HPI. Review of Systems: CONST: Denies fever EYES: Denies blurry vision ENT: Denies nasal congestion C/V: Denies Chest pain RESP: Denies shortness of breath GI: Denies abdominal pain : Denies dysuria SKIN: Denies rash. MSK: Endorses back pain NEURO: Denies headache ROS Other: All systems not noted in ROS Statement are negative. Past Medical History Past Medical History: Cancer, Deep Vein Thrombosis (DVT), Musculoskeletal Disorder Additional Past Medical History / Comment(s): kidney infection, colon cancer, dvt in leg, ascites, uterine CA History of Any Multi-Drug Resistant Organisms: None Reported Past Surgical History: Bowel Resection, Heart Catheterization With Stent, Hernia Repair, Orthopedic Surgery Additional Past Surgical History / Comment(s): allison wrist surgery 2009, colon resection 09/08, multi paracentesis Past Anesthesia/Blood Transfusion Reactions: No Reported Reaction Past Psychological History: No Psychological Hx Reported Smoking Status: Former smoker Past Alcohol Use History: Rare Past Drug Use History: None Reported - Past Family History Father Family Medical History: Cancer Mother Family Medical History: Vascular Disorder General Exam - General Exam Comments Initial Comments: General: Appears in no acute distress. HEAD: Normal with no signs of head trauma. EYES: PERRLA, EOMI, conjunctiva normal, no discharge. ENT: Hearing grossly intact, normal oropharynx. RESPIRATORY: Clear breath sounds bilaterally. No wheezes, rales, or rhonchi. C/V: Regular rate and rhythm. S1 and S2 auscultated, no edema, peripheral pulses 2+ and intact throughout ABD: Abd is soft, nontender, nondistended EXT: Normal range of motion, no obvious deformity. Pain in the mid thoracic spine is minimally worsened on palpation. SKIN: No rashes or lesions observed on exposed skin. NEURO: Alert and oriented x 4. No focal deficits. Limitations: no limitations Course Vital Signs 09/03/24 09/03/24 19:15 20:48 Temperature 98.2 F Pulse Rate 64 72 Respiratory 16 18 Rate Blood Pressure 149/82 155/81 O2 Sat by Pulse 97 97 Oximetry Medical Decision Making - Medical Decision Making Was pt. sent in by a medical professional or institution (, PA, ASSISTANT STORE MANAGER TRAINEE, urgent care, hospital, or [facility]...) When possible be specific @ -No Did you speak to anyone other than the patient for history (EMS, parent, family, police, friend...)? What history was obtained from this source @ -No Did you review nursing and triage notes (agree or disagree)? Why? @ -I reviewed and agree with nursing and triage notes Were old charts reviewed (outside hosp., previous admission, EMS record, old EKG, old radiological studies, urgent care reports/EKG's, [facility] records)? Report findings @ -Reviewed recent admission and catheterization report from August 30, 2024 which patient had a cardiac cath and cardiac stent placed. Differential Diagnosis (chest pain, altered mental status, abdominal pain women, abdominal pain men, vaginal bleeding, weakness, fever, dyspnea, syncope, headache, dizziness, GI bleed, back pain, seizure, CVA, palpatations, mental health, musculoskeletal)? @ -ACS, aortic injury or dissection, musculoskeletal back pain, pleurisy. This list is not all inclusive. EKG interpreted by me (3pts min.). @ -As above X-rays interpreted by me (1pt min.). @ -Chest x-ray reveals atelectasis. CT interpreted by me (1pt min.). @ -CT chest abdomen pelvis reveals no evidence of aortic dissection or injury. No evidence of PE. Patient does have a known ascending thoracic aneurysm that is slightly larger at 4.1 cm compared to 3.9 as well as a known enlarged main pulmonary artery diameter which was 3.0 cm and is now 3.2 cm. Patient has a large fluid like collection with some air in the anterior abdominal wall that is now larger following surgery when compared to the presurgical image. Surgical clips overlying the area. Ascites is present. U/S interpreted by me (1pt. min.). @ -None done What testing was considered but not performed or refused? (CT, X-rays, U/S, labs )? Why? @ -None What meds were considered but not given or refused? Why? @ -None Did you discuss the management of the patient with other professionals (professionals i.e. DrNguyen, PA, ASSISTANT STORE MANAGER TRAINEE, lab, RT, psych nurse, social media campaign manager, tube builder, teacher, information security officer, manager rn case)? Give summary @ -Discussed with the admitting provider, Dr. Womack who accepted the admission. Was in agreement with plan for consultations to cardiology and surgery. I discussed with the patient and they have prior patient care with Dr. Bosch and are requesting his services in terms of surgeon. Therefore consult placed to Dr. Bosch. Was smoking cessation discussed for >3mins.? @ -No Was critical care preformed (if so, how long)? @ -Yes, 21 minutes. Were there social determinants of health that impacted care today? How? (Homelessness, low income, unemployed, alcoholism, drug addiction, transportation, low edu. Level, literacy, decrease access to med. care, snf, rehab)? @ -No Was there de-escalation of care discussed even if they declined (Discuss DNR or withdrawal of care, Hospice)? DNR status @ -No What co-morbidities impacted this encounter? (DM, HTN, Smoking, COPD, CAD, Cancer, CVA, ARF, Chemo, Hep., AIDS, mental health diagnosis, sleep apnea, morbid obesity)? @ -Patient cardiac catheterization recently with cardiac stent placed Was patient admitted / discharged? Hospital course, mention meds given and route, prescriptions, significant lab abnormalities, going to OR and other pertinent info. @ -Based on the patient's presentation and physical exam, presents with mid back pain with recent cardiac stent placed 4 days ago. Vital signs within acceptable limits. We will obtain cardiopulmonary workup. We will obtain CT angiogram to evaluate patient's aorta as well as chest further. She was in agreement this plan. She will be symptomatically treated with IV morphine, IV fluids. She was in agreement this plan. EKG shows left bundle branch block, with no obvious acute ischemic process. C hronic LBBB, negative for sgarbossa's criteria. Patient's laboratory studies remarkable for leukocytosis of 19.8. Troponin is elevated to 0.160. This is lower than the precath and stenting troponin. Unknown if it is uptrending or downtrending. Patient is chronically elevated alk phos and liver enzymes in the setting of liver metastasis, cancer. Patient's imaging revealed chronic findings in addition to a large fluid like collection with some air in the anterior abdominal wall at the site of a prior surgery where patient has surgical incision with diana. No evidence of aortic injury or dissection. No other obvious acute findings. On reevaluation, patient's back pain is improved. I discussed the results with the patient. In terms of the back pain, I am concerned regarding her cardiac history and recent stenting. Patient will be started on heparin with the elevated troponin as well as given 324 mg of aspirin for her non-STEMI. I am also concerned regarding possible abdominal wall infection at the site of a surgery done within the last few months. The wound appears to be healing but there are still diana present and may still be open which could be the source of the small air pocket present. However it is warm to touch. Not tender to touch. Patient has not noted any complaints regarding the site. I did discuss with her I am concerned for possible infection concerning her increasing leukocytosis from when she was here for her cardiac cath and stenting earlier this week. Blood cultures obtained. Will continue with IV fluids. Patient started on vancomycin and cefepime. Patient requires admission to the hospital for monitoring. Reached out to [facility] for admission as patient was admitted to [facility] on previous admission and just discharged on 09/01/2024, 2 days ago. Discussed with the admitting provider, Dr. Womack who accepted the admission. Was in agreement with plan for consultations to cardiology and surgery. I discussed with the patient and they have prior patient care with Dr. Bosch and are requesting his services in terms of surgeon. Therefore consult placed to Dr. Bosch. She was in agreement agreement the plan for admission. Undiagnosed new problem with uncertain prognosis? @ -No Drug Therapy requiring intensive monitoring for toxicity (Heparin, Nitro, Insulin, Cardizem)? @ -No Were any procedures done? @ -No Diagnosis/symptom? @ -NSTEMI, back pain, abdominal wall fluid collection/infection Acute, or Chronic, or Acute on Chronic? @ -Acute Uncomplicated (without systemic symptoms) or Complicated (systemic symptoms)? @ -Complicated Side effects of treatment? @ -None Exacerbation, Progression, or Severe Exacerbation] @ -No Poses a threat to life or bodily function? @ -Yes - Lab Data Result diagrams: 09/03/24 20:35 09/03/24 20:35 Lab Results 09/03/24 09/03/24 09/03/24 Range/Units 20:35 20:35 20:35 WBC 19.8 H (3.8-10.6) k/uL RBC 4.24 (3.80-5.40) m/uL Hgb 11.4 (11.4-16.0) gm/dL Hct 36.9 (34.0-46.0) % MCV 86.9 (80.0-100.0) fL MCH 27.0 (25.0-35.0) pg MCHC 31.0 (31.0-37.0) g/dL RDW 19.8 H (11.5-15.5) % Plt Count 449 (150-450) k/uL MPV 7.2 Neutrophils % 87 % Lymphocytes % 6 % Monocytes % 4 % Eosinophils % 2 % Basophils % 0 % Neutrophils # 17.3 H (1.3-7.7) k/uL Lymphocytes # 1.2 (1.0-4.8) k/uL Monocytes # 0.7 (0-1.0) k/uL Eosinophils # 0.4 (0-0.7) k/uL Basophils # 0.1 (0-0.2) k/uL Hypochromasia Slight Anisocytosis Slight Microcytosis Slight PT 11.5 (10.0-12.5) sec INR 1.1 (<1.2) APTT 34.8 H (22.0-30.0) sec Sodium 138 (137-145) mmol/L Potassium 4.4 (3.5-5.1) mmol/L Chloride 105 (98-107) mmol/L Carbon Dioxide 22 (22-30) mmol/L Anion Gap 11 mmol/L BUN 28 H (7-17) mg/dL Creatinine 1.06 H (0.52-1.04) mg/dL Est GFR (CKD-EPI)AfAm 64 (>60 ml/min/1.73 sqM) Est GFR (CKD-EPI)NonAf 55 (>60 ml/min/1.73 sqM) Glucose 144 H (74-99) mg/dL Calcium 9.8 (8.4-10.2) mg/dL Magnesium 1.8 (1.6-2.3) mg/dL Total Bilirubin 1.2 (0.2-1.3) mg/dL AST 88 H (14-36) U/L ALT 48 H (4-34) U/L Alkaline Phosphatase 926 H (38-126) U/L Troponin I (0.000-0.034) ng/mL NT-Pro-B Natriuret Pep 883 pg/mL Total Protein 6.8 (6.3-8.2) g/dL Albumin 3.7 (3.5-5.0) g/dL Lipase 44 (23-300) U/L // Range/Units 20:35 WBC (3.8-10.6) k/uL RBC (3.80-5.40) m/uL Hgb (11.4-16.0) gm/dL Hct (34.0-46.0) % MCV (80.0-100.0) fL MCH (25.0-35.0) pg MCHC (31.0-37.0) g/dL RDW (11.5-15.5) % Plt Count (150-450) k/uL MPV Neutrophils % % Lymphocytes % % Monocytes % % Eosinophils % % Basophils % % Neutrophils # (1.3-7.7) k/uL Lymphocytes # (1.0-4.8) k/uL Monocytes # (0-1.0) k/uL Eosinophils # (0-0.7) k/uL Basophils # (0-0.2) k/uL Hypochromasia Anisocytosis Microcytosis PT (10.0-12.5) sec INR (<1.2) APTT (22.0-30.0) sec Sodium (137-145) mmol/L Potassium (3.5-5.1) mmol/L Chloride (98-107) mmol/L Carbon Dioxide (22-30) mmol/L Anion Gap mmol/L BUN (7-17) mg/dL Creatinine (0.52-1.04) mg/dL Est GFR (CKD-EPI)AfAm (>60 ml/min/1.73 sqM) Est GFR (CKD-EPI)NonAf (>60 ml/min/1.73 sqM) Glucose (74-99) mg/dL Calcium (8.4-10.2) mg/dL Magnesium (1.6-2.3) mg/dL Total Bilirubin (0.2-1.3) mg/dL AST (14-36) U/L ALT (4-34) U/L Alkaline Phosphatase (38-126) U/L Troponin I 0.160 H* (0.000-0.034) ng/mL NT-Pro-B Natriuret Pep pg/mL Total Protein (6.3-8.2) g/dL Albumin (3.5-5.0) g/dL Lipase (23-300) U/L - EKG Data -: EKG Interpreted by Me EKG Comments: 12-lead Electrocardiogram Interpretation Note EKG was reviewed and interpreted by myself. 12-lead ECG performed at 1931 is interpreted by me as revealing normal sinus rhythm at a rate of 66 beats per minute. [place] is normal. Chronic left bundle branch block present. NV interval is 189 ms, QRS duration is 170 ms, QTc is 4 and 38 ms.. There were no ST or T wave abnormalities to suggest myocardial ischemia or injury. R wave progression across the precordium was satisfactory. By my interpretation this EKG is non- diagnostic for acute ischemia. There is some ST segment elevations in the precordial leads however does not meet Sgarbossa's criteria.Compared with EKG on discharge from 08/31/2024. 12-lead Electrocardiogram Interpretation Note EKG was reviewed and interpreted by myself. 12-lead ECG performed at 040 is interpreted by me as revealing normal sinus rhythm with chronic left bundle branch block at a rate of 78 beats per minute. [place] is normal. NV interval is 174 ms, QRS durations 147 ms, QTc is 425 ms.. There were no acute ST or T wave abnormalities to suggest myocardial ischemia or injury. R wave progression across the precordium was delayed. By my interpretation this EKG is non- diagnostic for acute ischemia. Based on Sgarbossa's criteria, this does not meet criteria for DC. Chronic mild ST segment changes in the precordial leads. No dynamic changes when compared with EKG from earlier this evening. Critical Care Time Critical Care Time: Yes Total Critical Care Time: 21 Disposition Clinical Impression: Open abdominal wall wound, NSTEMI (non-ST elevated myocardial infarction), Back pain Disposition: ADMITTED IP TO THIS HOSP Condition: Serious Referrals: Derick Strong MD [Primary Care Provider] - 1-2 days Time of Disposition: 22:45
[2024-09-03] MEDS: SODIUM CHLORIDE 0.9% 1,000 ML IV STA ×2 (20:40→23:20)
[2024-09-03 20:52] LABS: Anisocytosis Slight; Basophils # (A) 0.1 k/uL (0-0.2); Basophils % (A) 0 %; Eosinophils # (A) 0.4 k/uL (0-0.7); Eosinophils % (A) 2 %; HCT 36.9 % (34.0-46.0); HGB 11.4 gm/dL (11.4-16.0); Hypochromasia Slight; Lymphocytes # (A) 1.2 k/uL (1.0-4.8); Lymphocytes % (A) 6 %; MCV 86.9 fL (80.0-100.0); Mean Platelet Volume 7.2; Microcytosis Slight; Monocytes # (A) 0.7 k/uL (0-1.0); Monocytes % (A) 4 %; Neutrophils # (A) 17.3 k/uL (1.3-7.7); Neutrophils % (A) 87 %; Platelet Count 449 k/uL (150-450); RBC 4.24 m/uL (3.80-5.40); RDW 19.8 % (11.5-15.5); WBC 19.8 k/uL (3.8-10.6)
[2024-09-03] MEDS: MORPHINE SULFATE 2 MG/ML SYRINGE IVP STA (21:11)
[2024-09-03 21:22] LABS: INR 1.1 (<1.2); Partial Thromboplastin Time 34.8 sec (22.0-30.0); Prothrombin Time 11.5 sec (10.0-12.5)
[2024-09-03 21:26] LABS: ALT 48 U/L (4-34); AST 88 U/L (14-36); African American GFR (CKD) 64 (>60 ml/min/1.73 sqM); Albumin 3.7 g/dL (3.5-5.0); Alkaline Phosphatase 926 U/L (38-126); Anion Gap 11 mmol/L; Blood Urea Nitrogen 28 mg/dL (7-17); Calcium 9.8 mg/dL (8.4-10.2); Carbon Dioxide 22 mmol/L (22-30); Chloride 105 mmol/L (98-107); Glucose 144 mg/dL (74-99); Lipase 44 U/L (23-300); Magnesium 1.8 mg/dL (1.6-2.3); Non-African American GFR(CKD) 55 (>60 ml/min/1.73 sqM); Potassium 4.4 mmol/L (3.5-5.1); Sodium 138 mmol/L (137-145); Total Bilirubin 1.2 mg/dL (0.2-1.3); Total Protein 6.8 g/dL (6.3-8.2)
[2024-09-03 21:33] LABS: NT-Pro-B-Type Natriuretic Pept 883 pg/mL
--- NOTE | 2024-09-03 21:46 | XR ---
EXAMINATION TYPE: XR chest 2V DATE OF EXAM: 09/03/2024 9:09 PM COMPARISON: None. CLINICAL INDICATION: Female, 64 years old with history of Chest Pain, TECHNIQUE: XR chest 2V view(s) obtained. FINDINGS: The heart size is normal. The pulmonary vasculature is normal. Mild bibasilar subsegmental atelectasis present.. Port is present on the right with the tip in the superior vena cava region IMPRESSION: 1. Bibasilar infiltrates likely subsegmental atelectasis [facility], , 09/03/2024 9:43 PM
--- NOTE | 2024-09-03 21:55 | CT ---
EXAMINATION TYPE: CT angio thor/abd pel aorta DATE OF EXAM: 09/03/2024 9:15 PM COMPARISON: None. CLINICAL INDICATION: Female, 64 years old with history of mid back pain, recent cath and stent, back/ scapular pain, recent cath/stent placed TECHNIQUE: Axial images at 5 mm thick sections. Reconstructed images in the coronal plane. Delayed images through the kidneys. Contrast used:100 mL of Isovue 370 without and with IV Contrast, (none if empty) Oral contrast used: (none if empty) CT DLP: 1917.3 mGycm, Automated exposure control for dose reduction was used. FINDINGS: There is a three-vessel arch. After calcification within the aortic arch. The ascending thoracic aort a measures 4.1 cm. The aorta tapers normally throughout its visualized course. Celiac axis and superi or mesenteric artery are patent. Renal arteries are patent. Aortic Bifurcation appears normal. Iliac vessels are patent. External iliac vessels are patent to the common femoral arteries. There are some focal areas of narrowing more notably on the right. Some flow-limiting stenosis is not excluded. CT CHEST: Portion of the thyroid visualized is normal. Streaky opacities in the right lower lung field No enlarged mediastinal or hilar adenopathy is evident. The ascending aorta diameter at the level of the main pulmonary artery is 4.1 cm. The main pulmonary artery diameter at the bifurcation is 3.2 cm. There appears to be a large posterior fat-containing hernia. Hiatal hernia is not identified. CT ABDOMEN: There is a large collection in the subcutaneous midabdomen measuring 11.8 x 3.3 cm. Some minimal air is present within this. This has enlarged from the comparison. These surgical clips anter ior Liver: Normal, a small amount of free fluid is adjacent to the liver Spleen: Normal Pancreas: Normal Adrenal glands: The adrenal glands are normal. Gallbladder: Distended Kidneys: No masses are evident. No hydronephrosis is present. Cortical renal cyst is on the left n o renal stones are identified. Small renal stones may be difficult to exclude having a similar appear ance during early contrast excretion. Aorta: Vascular calcification is within the aorta. Inferior vena cava: Normal. CT PELVIS: Some free fluid is within the left paracolic gutter. Fecal debris is within the colon in t he left lower quadrant. Postsurgical changes are evident. No obstruction is evident. Postsurgical julia nge within the sigmoid region appears without obvious obstruction or stenosis. Loops of bowel within the abdomen and pelvis are normal. This study is lateral contrast limits ev aluation Appendix: Not identified Urinary bladder: Normal. Genitourinary structures: Uterus and ovaries are not identified Osseous structures: No suspicious lytic or sclerotic lesions. IMPRESSION: 1. Ascending thoracic aortic aneurysm 4.1 cm. 2. No descending traffic or abdominal aortic aneurysm evident. No aortic dissection evident. 3. Vascular calcification within the aorta and iliac vessels. Some stenosis within the right iliac ex ternal artery is not excluded. 4. Large fluidlike collection with some air in the anterior abdominal wall has enlarged following rony ulysses when comparing to the presurgical image.. Surgical clips overlie this area. 5. Ascites [facility], , 09/03/2024 9:52 PM
[2024-09-03] MEDS ORDERED: HEPARIN SODIUM 1,000 UN/ML (10ML VL) IV PRN (22:14)
[2024-09-03] MEDS ORDERED: VANCOMYCIN IV PER PHARMACY 1 EACH MISC MISCELLANE PRN (22:16)
[2024-09-03] MEDS ORDERED: ONDANSETRON 4 MG/2 ML VIAL IVP PRN (22:52)
[2024-09-03] MEDS ORDERED: NALOXONE 0.4 MG/ML 1 ML VIAL IV PRN (22:52)
[2024-09-03] MEDS: HEPARIN SODIUM 1,000 UN/ML (10ML VL) IV ONE (23:10)
[2024-09-03] MEDS: HEPARIN SOD,PORK IN 0.45% NACL 25,000 UNIT in 0.45% NACL 1 250ML.BAG IV SCH (23:12)
[2024-09-03] MEDS: ACETAMINOPHEN TAB 325 MG TAB PO PRN (23:14)
[2024-09-03] MEDS: ASPIRIN 81 MG PO STA (23:14)
[2024-09-03] MEDS: VANCOMYCIN 1,500 MG in SODIUM CHLORIDE 0.9% 500 ML 500 ML IVPB SCH (23:20)
--- NOTE | 2024-09-04 00:15 | P.HPIM ---
History of Present Illness H&P Date: 09/03/24 Chief Complaint: Back Pain History of present illness; 64-year-old female with colon cancer (stage IV, s/p colectomy 08/2021, following with Dr. Morales, currently on ), DVT (on ), and hiatal hernia repair on 08/25/2024 and a history of uterine cancer and ascites. Is presenting to the emergency department complaining of mid back pain which started an hour and a half ago. The patient was recently discharged from this facility following a heart catheterization with stent placement on 08/30/2024. Upon discharge the patient was instructed to come to the emergency department if she began to experience any pain. Patient states she was sitting there and the pain started. She describes the pain as sharp, burning and achy she states she is unsure whether it is related to her surgery or a musculoskeletal problem. She describes the pain as having settled at a 2/10, however when it first started per the patient and her it was an 8/10. She states it does not radiate anywhere, has had no diaphoresis, has not had any nausea or vomiting, no headaches or weakness, no shortness of breath, no fever or chills. She states that she took a Flexeril at home and noticed no improvement, thus leading her to present for further evaluation. When seen at the bedside the patient is joined by her . She was resting comfortably, stating that she currently does not have any pain and has no acute complaints at this time other than feeling fatigued. Imaging: -Chest x-ray done in the ER showed bibasilar infiltrates likely subsegmental atelectasis -Thoracic aorta CT showed ascending thoracic aortic aneurysm of 4.1 cm; no descending thoracic or abdominal aortic aneurysm evident; no aortic dissection evident; large fluidlike collection with some air in the anterior abdominal wall has enlarged following surgery when comparing to the presurgical image. -EKG done in the ER showed heart rate of 66, evidence of a left bundle branch block; QTc 438; negative for Sgarbossa's criteria. -Second EKG done in the ER showed heart rate of 78, evidence of a left bundle branch block; QTc 425; negative for Sgarbossa's criteria Vitals: -Tmax 100.6 F, blood pressure 168/79, heart rate 82, respiratory rate 18, SpO2 97% on room air Patient admitted to internal medicine service REVIEW OF SYSTEMS: CONSTITUTIONAL: No fever, no malaise, no fatigue. HEENT: No recent visual problems or hearing problems. Denied any sore throat. CARDIOVASCULAR: No chest pain, orthopnea, PND, no palpitations, no syncope. PULMONARY: No shortness of breath, no cough, no hemoptysis. GASTROINTESTINAL: No diarrhea, no nausea, no vomiting, no abdominal pain. NEUROLOGICAL: No headaches, no weakness, no numbness. HEMATOLOGICAL: Denies any bleeding or petechiae. GENITOURINARY: Denies any burning micturition, frequency, or urgency. MUSCULOSKELETAL/RHEUMATOLOGICAL: Denies any joint pain, swelling, or any muscle pain. ENDOCRINE: Denies any polyuria or polydipsia. The rest of the 14-point review of systems is negative. PHYSICAL EXAMINATION: GENERAL: The patient is alert and oriented x3, not in any acute distress. Well developed, well nourished. HEENT: No scleral icterus. No conjunctival pallor. Normocephalic, atraumatic. CARDIOVASCULAR: S1 and S2 present. No murmurs, rubs, or gallops. PULMONARY: Chest is clear to auscultation, no wheezing or crackles. ABDOMEN: Soft, nontender, nondistended, normoactive bowel sounds. No palpable organomegaly. Hiatal hernia surgery site clean with no surrounding warmth, erythema or discharge around the bandages. Abdominal binder present. MUSCULOSKELETAL: No joint swelling or deformity. Hammertoe noted on the left foot. EXTREMITIES: No cyanosis, clubbing, or pedal edema. Pain in the mid thoracic spine that minimally worsens on palpation. NEUROLOGICAL: Gross neurological examination did not reveal any focal deficits. SKIN: No rashes. Assessment and plan 64-year-old female with stage IV colon cancer, history of DVT (on Eliquis), hiatal hernia, uterine cancer and ascites. Presents with new onset mid back pain status post cardiac catheterization on 08/30/2024, under instruction received upon discharge when the pain did not resolve after taking a Flexeril. Case to be discussed with the ED and the patient is admitted to the internal medicine service for further evaluation of this back pain. #Sepsis possibly secondary to complicated hiatal hernia repair with possible fluid collection #Leukocytosis -Thoracic aorta CT showed large fluidlike collection with some air in the anterior abdominal wall has enlarged following surgery when comparing to the presurgical image -WBCs 19.8, Tmax 100.6 F -Received cefepime 2 g one dose in ED -Continue with vancomycin dosing by pharmacy , until MRSA bactremia ruled out -start Zosyn 3.375 gm IVPB q 8hr for intra abdominal source and pseudomonus -Monitor CBC -Lactic acid currently pending -Blood culture pending -Incentive spirometer, encourage use 1015 times hourly while awake -Chest x-ray done in the ER showed bibasilar infiltrates likely subsegmental atelectasis -General Surgery consulted #New onset midthoracic back pain status post cardiac catheterization with stent placement (08/30/2024) #Possible NSTEMI -Thoracic aorta CT showed ascending thoracic aortic aneurysm of 4.1 cm; no descending thoracic or abdominal aortic aneurysm evident; no aortic dissection evident -EKG done in the ER showed heart rate of 66, evidence of a left bundle branch bl ock; QTc 438; negative for Sgarbossa's criteria. -Second EKG done in the ER showed heart rate of 78, evidence of a left bundle branch block; QTc 425; negative for Sgarbossa's criteria -Trend troponin; initial troponin 0.160 -patient received aspirin 324 mg once in the emergency department -Patient currently receiving heparin drip -Following patient's previous cardiac catheterization she was discharged on triple therapy of aspirin, Brilinta, and Eliquis x 1 week and then was instructed to discontinue the aspirin and remain on Brilinta and Eliquis indefinitely -Continue Brilinta 90 mg BID and Aspirin 81 mg daily; HOLD Eliquis -Cardiology consulted -Currently NPO -Supplemental oxygen as needed -Cardiac monitoring #Acute kidney injury -Creatinine 1.06, BUN 28 -Patient currently sitting normal saline 130 cc/h -Monitor CMP -monitor urine output #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 Robson Morales, her oncologist -Not currently taking her Keytruda, has been on holiday for the past month and a half secondary to needing undergo surgery to repair hernia #Elevated alkaline phosphatase possibly secondary to benign postoperative cholestasis -Monitor CMP #Transaminitis possibly secondary to recent surgery -Monitor CMP -Hold Lipitor 80 mg daily due to transaminitis #Hypertension -Continue home Amiodarone 200 mg daily, hold Cozaar 50 mg BID due to OUMOU, continue Lopressor 25 mg BID - as per cardiology discharge instructions from previous hospital stay last week #History of Microcytic anemia, likely secondary to iron deficiency -Currently no signs of microcytic anemia, controlled on medications -Hold home 325 mg ferrous sulfate #History of deep vein thrombosis -Maintained on Eliquis at home 5 mg twice daily -Home hold eliquis, continue on heparin drip CODE STATUS: Full code GI prohylaxis: Protonix 40 mg daily DVT prophylaxis: On heparin drip, she is maintained at home on Eliquis 5 mg BID and Brilinta 90 mg BID; HOLD Eliquis, continue Brilinta Dictation was produced using [employer] dictation software. please excuse any grammatical, word or spelling errors. Past Medical History Past Medical History: Cancer, Deep Vein Thrombosis (DVT), Musculoskeletal Disorder Additional Past Medical History / Comment(s): kidney infection, colon cancer, dvt in leg, ascites, uterine CA History of Any Multi-Drug Resistant Organisms: None Reported Past Surgical History: Bowel Resection, Heart Catheterization With Stent, Hernia Repair, Orthopedic Surgery Additional Past Surgical History / Comment(s): allison wrist surgery 2009, colon r esection 09/08, multi paracentesis Past Anesthesia/Blood Transfusion Reactions: No Reported Reaction Past Psychological History: No Psychological Hx Reported Smoking Status: Former smoker Past Alcohol Use History: Rare Past Drug Use History: None Reported - Past Family History Father Family Medical History: Cancer Mother Family Medical History: Vascular Disorder Medications and Allergies Home Medications Medication Instructions Recorded Confirmed Type Calcium Carbonate [Calcium] 600 mg PO DAILY 12/05/21 08/27/24 History Cyanocobalamin [Vitamin B-12] 1,000 mcg PO DAILY 12/05/21 08/27/24 History Apixaban [Eliquis] 5 mg PO BID 08/31/22 08/27/24 History Ascorbic Acid [Vitamin C] 1,000 mg PO DAILY 11/13/22 08/27/24 History Zinc Gluconate [Zinc] 50 mg PO DAILY 11/13/22 08/27/24 History Acetaminophen 500 - 1,000 mg PO TID PRN MDD 08/27/24 08/27/24 History 3,000mg Calcium Carbonate [Calcium] 600 mg PO DAILY 08/27/24 08/27/24 History Cyclobenzaprine [Flexeril] 5 mg PO TID PRN 08/27/24 08/27/24 History Ferrous Sulfate [Feosol] 325 mg PO DAILY 08/27/24 08/27/24 History Magnesium Oxide [Mag-Ox] 400 mg PO DAILY 08/27/24 08/27/24 History traMADol HCL 50 mg PO Q6H PRN 08/27/24 08/27/24 History Amiodarone [Cordarone] 200 mg PO DAILY 30 Days #30 tab 09/01/24 Rx Aspirin 81 mg PO DAILY 5 Days #5 tab 09/01/24 Rx Atorvastatin [Lipitor] 80 mg PO DAILY 30 Days #30 tab 09/01/24 Rx Losartan [Cozaar] 50 mg PO BID 30 Days #60 tab 09/01/24 Rx Metoprolol Tartrate [Lopressor] 25 mg PO BID 30 Days #60 tab 09/01/24 Rx Ticagrelor [Brilinta] 90 mg PO BID 30 Days #60 tab 09/01/24 Rx Allergies Allergy/AdvReac Type Severity Reaction Status Date / Time No Known Allergies Allergy Verified 09/03/24 19:15 Physical Exam Vitals: Vital Signs Temp Pulse Resp BP Pulse Ox 09/03/24 23:00 100.6 F H 82 18 168/79 97 09/03/24 20:48 72 18 155/81 97 09/03/24 19:15 98.2 F 64 16 149/82 97 Intake and Output 09/03/24 09/03/24 09/04/24 14:59 22:59 06:59 Other: Weight 77.111 kg Results CBC & Chem 7: 09/03/24 20:35 09/03/24 20:35 Labs: Abnormal Lab Results - Last 24 Hours (Table) 09/03/24 09/03/24 09/03/24 Range/Units 20:35 20:35 20:35 WBC 19.8 H (3.8-10.6) k/uL RDW 19.8 H (11.5-15.5) % Neutrophils # 17.3 H (1.3-7.7) k/uL APTT 34.8 H (22.0-30.0) sec BUN 28 H (7-17) mg/dL Creatinine 1.06 H (0.52-1.04) mg/dL Glucose 144 H (74-99) mg/dL AST 88 H (14-36) U/L ALT 48 H (4-34) U/L Alkaline Phosphatase 926 H (38-126) U/L Troponin I (0.000-0.034) ng/mL 09/03/24 Range/Units 20:35 WBC (3.8-10.6) k/uL RDW (11.5-15.5) % Neutrophils # (1.3-7.7) k/uL APTT (22.0-30.0) sec BUN (7-17) mg/dL Creatinine (0.52-1.04) mg/dL Glucose (74-99) mg/dL AST (14-36) U/L ALT (4-34) U/L Alkaline Phosphatase (38-126) U/L Troponin I 0.160 H* (0.000-0.034) ng/mL Assessment and Plan Assessment: I have seen and evaluated the patient today. I Discussed the case with the resident and agree with the resident's findings I edited the assessment and plan as necessary as documented in the resident's note.
[2024-09-04] MEDS: CEFEPIME 2 GM in SODIUM CHLORIDE 0.9% 100 ML IVPB SCH ×2 (00:18→16:56)
[2024-09-04] MEDS ORDERED: VANCOMYCIN IV PER PHARMACY 1 EACH MISC MISCELLANE PRN (00:48)
[2024-09-04] MEDS: PIPERACILLIN-TAZOBACTAM 3.375 GM in SODIUM CHLORIDE 0.9% 100 ML IVPB SCH (02:55)
[2024-09-04 03:06] LABS: Anisocytosis Slight; Basophils # (A) 0.1 k/uL (0-0.2); Basophils % (A) 0 %; Eosinophils # (A) 0.2 k/uL (0-0.7); Eosinophils % (A) 1 %; HCT 32.9 % (34.0-46.0); HGB 10.5 gm/dL (11.4-16.0); Hypochromasia Slight; Lymphocytes # (A) 1.2 k/uL (1.0-4.8); Lymphocytes % (A) 7 %; MCH 27.3 pg (25.0-35.0); MCHC 31.8 g/dL (31.0-37.0); MCV 85.9 fL (80.0-100.0); Mean Platelet Volume 7.2; Microcytosis Slight; Monocytes # (A) 0.7 k/uL (0-1.0); Monocytes % (A) 5 %; Neutrophils # (A) 13.6 k/uL (1.3-7.7); Neutrophils % (A) 86 %; Platelet Count 344 k/uL (150-450); RBC 3.83 m/uL (3.80-5.40); RDW 19.6 % (11.5-15.5); WBC 15.8 k/uL (3.8-10.6)
[2024-09-04 03:15] LABS: INR 1.2 (<1.2); Prothrombin Time 12.8 sec (10.0-12.5)
[2024-09-04 03:26] LABS: ALT 112 U/L (4-34); AST 175 U/L (14-36); African American GFR (CKD) 69 (>60 ml/min/1.73 sqM); Alkaline Phosphatase 1136 U/L (38-126); Anion Gap 10 mmol/L; Blood Urea Nitrogen 26 mg/dL (7-17); Calcium 9.1 mg/dL (8.4-10.2); Carbon Dioxide 20 mmol/L (22-30); Chloride 106 mmol/L (98-107); Glucose 133 mg/dL (74-99); Non-African American GFR(CKD) 60 (>60 ml/min/1.73 sqM); Sodium 136 mmol/L (137-145); Total Bilirubin 1.9 mg/dL (0.2-1.3); Total Protein 5.9 g/dL (6.3-8.2)
[2024-09-04] MEDS: PANTOPRAZOLE 40 MG TABLET PO SCH (06:31)
[2024-09-04 06:47] LABS: Glucose,Whole Blood 114 mg/dL (70-110)
[2024-09-04] MEDS: AMIODARONE 200 MG TAB PO SCH (08:37)
[2024-09-04] MEDS: TICAGRELOR 90 MG TAB PO SCH (08:37)
[2024-09-04] MEDS: ASPIRIN 81 MG PO SCH (08:37)
[2024-09-04] MEDS: METOPROLOL TARTRATE 25 MG TAB PO SCH (08:37)
[2024-09-04] MEDS ORDERED: ATORVASTATIN 80 MG TAB PO SCH (09:00)
[2024-09-04] MEDS ORDERED: LOSARTAN 50 MG TAB PO SCH (09:00)
--- NOTE | 2024-09-04 11:08 | P.PN ---
Subjective Progress Note Date: 09/04/24 Hospital Course: 64-year-old female with colon cancer (stage IV, s/p colectomy 08/2021, following with Dr. Morales, currently on ), DVT (on ), and hiatal hernia repair on 08/25/2024 and a history of uterine cancer and ascites. Is presenting to the emergency department complaining of mid back pain. Recent heart cath with stent placement on 08/30/2024 -Chest x-ray done in the ER showed bibasilar infiltrates likely subsegmental atelectasis -Thoracic aorta CT showed ascending thoracic aortic aneurysm of 4.1 cm; no descending thoracic or abdominal aortic aneurysm evident; no aortic dissection evident; large fluidlike collection with some air in the anterior abdominal wall has enlarged following surgery when comparing to the presurgical image. -EKG done in the ER showed heart rate of 66, evidence of a left bundle branch block; QTc 438; negative for Sgarbossa's criteria. -Second EKG done in the ER showed heart rate of 78, evidence of a left bundle branch block; QTc 425; negative for Sgarbossa's criteria On arrival, patient was febrile, rest of the vital signs within normal limits. White count elevated to 19.8, creatinine 1.06, troponin peaked at 0.16. Patient started on heparin drip and IV Zosyn and vancomycin. General surgery and cardiology was consulted. Subjective: Patient seen and examined at bedside. No acute events overnight. No active chest pain. Pertinent positives and negatives as discussed above, a complete review of systems was performed and all other systems are negative. Vitals Signs Reviewed. General: Nontoxic, no distress, appears at stated age Derm: Warm, dry, right chest port site clean, dry, intact Head: Atraumatic, normocephalic, symmetric Eyes: EOMI, no lid lag, anicteric sclera Mouth: No lip lesion, mucus membranes moist Cardiovascular: S1S2 reg, no murmur Lungs: CTA bilateral, no rhonchi, no rales, no accessory muscle use Abdominal: Soft, nontender to palpation, no guarding, no appreciable organomegaly, abdominal binder in place Ext: No gross muscle atrophy, no edema, no contractures Neuro: CN II-XI grossly intact, no focal neuro deficits Psych: Alert, oriented, appropriate affect Data Reviewed Today: Pertinent Labs: WBC 15.8, creatinine 1.0, total bili 1.9, AST 175, ALT 112, ALP 1136, troponin downtrending, lactate 1.7 Imaging: No new imaging Assessment and Plan: Active: Sepsis likely secondary to surgical site infection Recent abdominal hernia surgery at [facility] [place] -General Surgery consulted -Continue vancomycin 1500 mg daily, monitor renal function -To prevent renal toxicity, will switch IV Zosyn to cefepime and Flagyl -Cultures pending -Keep n.p.o. NSTEMI, likely type II CAD status post recent stent placement on 08/30/2024 -Continue heparin drip, monitor APTT, on aspirin 81 mg, Brilinta 90 twice daily, metoprolol 25 twice daily -Cardiology consulted, pending recommendations Acute kidney injury Acute transaminitis, possible ischemic hepatitis -Creatinine down trended -Patient is status post IV fluids, continue to hold for now -Hold ROSALINDA inhibitor and statin History of DVT -Hold Eliquis, continue heparin drip Chronic: Adenocarcinoma of the sigmoid colon status post colectomy on Keytruda Hypertension DVT ppx: Heparin drip Code status: Full code Anticipated discharge place: Pending clinical course Anticipated discharge time: Pending clinical course Objective - Vital Signs Vital signs: Vital Signs Temp 98.7 F 09/04/24 08:00 Pulse 81 09/04/24 08:00 Resp 16 09/04/24 08:00 BP 120/62 09/04/24 08:00 Pulse Ox 95 09/04/24 08:00 FiO2 Intake & Output 09/03/24 09/04/24 09/04/24 18:59 06:59 18:59 Weight 77.111 kg Other: Voiding Method External Catheter - Labs CBC & Chem 7: 09/04/24 02:50 09/04/24 02:50 Labs: Abnormal Lab Results - Last 24 Hours (Table) 09/03/24 09/03/24 09/03/24 Range/Units 20:35 20:35 20:35 WBC 19.8 H (3.8-10.6) k/uL Hgb (11.4-16.0) gm/dL Hct (34.0-46.0) % RDW 19.8 H (11.5-15.5) % Neutrophils # 17.3 H (1.3-7.7) k/uL PT (10.0-12.5) sec INR (<1.2) APTT 34.8 H (22.0-30.0) sec Sodium (137-145) mmol/L Carbon Dioxide (22-30) mmol/L BUN 28 H (7-17) mg/dL Creatinine 1.06 H (0.52-1.04) mg/dL Glucose 144 H (74-99) mg/dL POC Glucose (mg/dL) (70-110) mg/dL Total Bilirubin (0.2-1.3) mg/dL AST 88 H (14-36) U/L ALT 48 H (4-34) U/L Alkaline Phosphatase 926 H (38-126) U/L Troponin I (0.000-0.034) ng/mL Total Protein (6.3-8.2) g/dL Albumin (3.5-5.0) g/dL 09/03/24 09/04/24 09/04/24 Range/Units 20:35 00:08 02:50 WBC (3.8-10.6) k/uL Hgb (11.4-16.0) gm/dL Hct (34.0-46.0) % RDW (11.5-15.5) % Neutrophils # (1.3-7.7) k/uL PT 12.8 H (10.0-12.5) sec INR 1.2 H (<1.2) APTT (22.0-30.0) sec Sodium (137-145) mmol/L Carbon Dioxide (22-30) mmol/L BUN (7-17) mg/dL Creatinine (0.52-1.04) mg/dL Glucose (74-99) mg/dL POC Glucose (mg/dL) (70-110) mg/dL Total Bilirubin (0.2-1.3) mg/dL AST (14-36) U/L ALT (4-34) U/L Alkaline Phosphatase (38-126) U/L Troponin I 0.160 H* 0.142 H* (0.000-0.034) ng/mL Total Protein (6.3-8.2) g/dL Albumin (3.5-5.0) g/dL 09/04/24 09/04/24 09/04/24 Range/Units 02:50 02:50 02:50 WBC 15.8 H (3.8-10.6) k/uL Hgb 10.5 L (11.4-16.0) gm/dL Hct 32.9 L (34.0-46.0) % RDW 19.6 H (11.5-15.5) % Neutrophils # 13.6 H (1.3-7.7) k/uL PT (10.0-12.5) sec INR (<1.2) APTT (22.0-30.0) sec Sodium 136 L (137-145) mmol/L Carbon Dioxide 20 L (22-30) mmol/L BUN 26 H (7-17) mg/dL Creatinine (0.52-1.04) mg/dL Glucose 133 H (74-99) mg/dL POC Glucose (mg/dL) (70-110) mg/dL Total Bilirubin 1.9 H (0.2-1.3) mg/dL AST 175 H (14-36) U/L ALT 112 H (4-34) U/L Alkaline Phosphatase 1136 H (38-126) U/L Troponin I 0.148 H* (0.000-0.034) ng/mL Total Protein 5.9 L (6.3-8.2) g/dL Albumin 3.0 L (3.5-5.0) g/dL 09/04/24 09/04/24 Range/Units 05:36 06:45 WBC (3.8-10.6) k/uL Hgb (11.4-16.0) gm/dL Hct (34.0-46.0) % RDW (11.5-15.5) % Neutrophils # (1.3-7.7) k/uL PT (10.0-12.5) sec INR (<1.2) APTT 41.1 H (22.0-30.0) sec Sodium (137-145) mmol/L Carbon Dioxide (22-30) mmol/L BUN (7-17) mg/dL Creatinine (0.52-1.04) mg/dL Glucose (74-99) mg/dL POC Glucose (mg/dL) 114 H (70-110) mg/dL Total Bilirubin (0.2-1.3) mg/dL AST (14-36) U/L ALT (4-34) U/L Alkaline Phosphatase (38-126) U/L Troponin I (0.000-0.034) ng/mL Total Protein (6.3-8.2) g/dL Albumin (3.5-5.0) g/dL
--- NOTE | 2024-09-04 11:52 | P.CRDCN ---
History of Present Illness History of present illness: HISTORY OF PRESENT ILLNESS: This is a 64-year-old female with a past medical history significant for colon cancer with metastasis to the liver, recent hiatal hernia repair, and CAD with r ecent stenting. Patient follows in the office with Dr. Justice. We have been asked to see the patient in consultation for elevated troponins. Patient examined at the bedside. Patient was recently hospitalized due to ventricular tachycardia and non-STEMI. She underwent cardiac catheterization with Dr. Justice on 08/30/2024 with stenting to the mid left circumflex. Patient was also found to have first obtuse marginal branch chronically occluded with retrograde filling. The patient was discharged home on triple therapy with aspirin, Brilinta, and Eliquis. Patient was to discontinue her aspirin after 1 week. The patient was discharged home on . She presented back to the hospital with a chief complaint of back pain. She states the pain was in the middle of her back. She denied having any chest pain or pressure. Denied having any shortness of breath. The patient was found to have mildly elevated troponins and was started on IV heparin. Her Eliquis was placed on hold. DIAGNOSTICS: - EKG reveals sinus mechanism with left bundle branch block - Chest xray bibasilar infiltrates likely subsegmental atelectasis - Laboratory data: WBC 19.8. Repeat 15.8. Hemoglobin 10.5. Platelet count 344. Sodium 136. Potassium 4.0. BUN 26. Creatinine 1.0. AST 175. ALT 112. Alkaline phosphatase 1136. Troponin 0.160. 0.142. 0.148. proBNP 883. - Current home cardiac medications include Brilinta 90 mg twice a day, metoprolol tartrate 25 mg twice a day, losartan 50 mg twice a day, Lipitor 80 mg daily, aspirin 81 mg daily, Eliquis 5 mg twice a day, and amiodarone 200 mg daily - Most recent echocardiogram obtained on 08/29/2024 ejection fraction 55 to 60%, moderate pulmonary hypertension, trace MR, trace TR - Cardiac catheterization history: 08/30/2024 with stenting to the mid left circumflex. Patient was also found to have first obtuse marginal branch chronically occluded with retrograde filling. REVIEW OF SYSTEMS: At the time of my exam: CONSTITUTIONAL: Denies fever or chills. HEENT: Denies blurred vision, vision changes, or eye pain. Denies hemoptysis CARDIOVASCULAR: Denies chest pain. Denies orthopnea. Denies PND. Denies palpitations RESPIRATORY: Denies shortness of breath. GASTROINTESTINAL: Denies abdominal pain. Denies nausea or vomiting. HEMATOLOGIC: Denies bleeding disorders. GENITOURINARY: Denies any blood in urine. SKIN: Denies pruitis. Denies rash. PHYSICAL EXAM: VITAL SIGNS: Reviewed. GENERAL: Well-developed in no acute distress. HEENT: Head is normocephalic. Pupils are equal, round. Sclerae anicteric. Mucous membranes of the mouth are moist. Neck supple. No JVD or thyromegaly LUNGS: Respirations even and unlabored. Lungs essentially clear to auscultation bilaterally. HEART: Regular rate and rhythm. S1 and S2 heard. + systolic murmur ABDOMEN: Soft. Nondistended. Nontender. EXTREMITIES: Normal range of motion. No clubbing or cyanosis. Peripheral pulses intact. No lower extremity edema NEUROLOGIC: Awake and alert. Oriented x 3. ASSESSMENT: Back pain Abdominal fluid collection, s/p recent hiatal hernia repair, at [facility] in [place] Coronary artery disease with recent stenting of the circumflex, 08/30/2024 Recent hospitalization for non-STEMI and ventricular tachycardia Elevated troponins, trending down from recent non-STEMI, no evidence of acute coronary syndrome Acute kidney injury Transaminitis Moderate pulmonary hypertension Colon cancer with metastasis to the liver, previously on chemotherapy which has been placed on hold due to recent hiatal hernia surgery History of DVT, on Eliquis outpatient PLAN: An acute coronary event has been ruled out Patient was discharged home on aspirin, Plavix, and Eliquis. Patient to discontinue her aspirin after 1 week which will be September 06, 2024 Discontinue IV heparin drip Continue to hold Eliquis at this time until general surgery evaluates patient. Discontinue amiodarone due to transaminitis Continue additional cardiac medications Further recommendations pending patient course Nurse practitioner note has been reviewed by physician. Signing provider agrees with the documented findings, assessment, and plan of care documented by [facility] CONSULTANT as a scribe. Past Medical History Past Medical History: Cancer, Deep Vein Thrombosis (DVT), Musculoskeletal Disorder Additional Past Medical History / Comment(s): kidney infection, colon cancer, dvt in leg, ascites, uterine CA History of Any Multi-Drug Resistant Organisms: None Reported Past Surgical History: Bowel Resection, Heart Catheterization With Stent, Hernia Repair, Orthopedic Surgery Additional Past Surgical History / Comment(s): allison wrist surgery 2009, colon resection 09/08, multi paracentesis Past Anesthesia/Blood Transfusion Reactions: No Reported Reaction Date of Last Stent Placement:: 09/11 Past Psychological History: No Psychological Hx Reported Smoking Status: Former smoker Past Alcohol Use History: Rare Additional Past Alcohol Use History / Comment(s): occaisional Past Drug Use History: None Reported - Past Family History Father Family Medical History: Cancer Mother Family Medical History: Vascular Disorder Medications and Allergies Home Medications Medication Instructions Recorded Confirmed Type Calcium Carbonate [Calcium] 600 mg PO DAILY 12/05/21 08/27/24 History Cyanocobalamin [Vitamin B-12] 1,000 mcg PO DAILY 12/05/21 08/27/24 History Apixaban [Eliquis] 5 mg PO BID 08/31/22 08/27/24 History Ascorbic Acid [Vitamin C] 1,000 mg PO DAILY 11/13/22 08/27/24 History Zinc Gluconate [Zinc] 50 mg PO DAILY 11/13/22 08/27/24 History Acetaminophen 500 - 1,000 mg PO TID PRN MDD 08/27/24 08/27/24 History 3,000mg Calcium Carbonate [Calcium] 600 mg PO DAILY 08/27/24 08/27/24 History Cyclobenzaprine [Flexeril] 5 mg PO TID PRN 08/27/24 08/27/24 History Ferrous Sulfate [Feosol] 325 mg PO DAILY 08/27/24 08/27/24 History Magnesium Oxide [Mag-Ox] 400 mg PO DAILY 08/27/24 08/27/24 History traMADol HCL 50 mg PO Q6H PRN 08/27/24 08/27/24 History Amiodarone [Cordarone] 200 mg PO DAILY 30 Days #30 tab 09/01/24 Rx Aspirin 81 mg PO DAILY 5 Days #5 tab 09/01/24 Rx Atorvastatin [Lipitor] 80 mg PO DAILY 30 Days #30 tab 09/01/24 Rx Losartan [Cozaar] 50 mg PO BID 30 Days #60 tab 09/01/24 Rx Metoprolol Tartrate [Lopressor] 25 mg PO BID 30 Days #60 tab 09/01/24 Rx Ticagrelor [Brilinta] 90 mg PO BID 30 Days #60 tab 09/01/24 Rx Allergies Allergy/AdvReac Type Severity Reaction Status Date / Time No Known Allergies Allergy Verified 09/03/24 19:15 Physical Exam Vitals: Vital Signs Temp Pulse Pulse Resp BP BP Pulse Ox 09/04/24 05:11 79 18 165/78 96 09/04/24 02:06 98.0 F 73 16 108/62 94 L 09/04/24 01:11 99.2 F 85 18 125/69 97 09/03/24 23:00 100.6 F H 82 18 168/79 97 09/03/24 20:48 72 18 155/81 97 09/03/24 19:15 98.2 F 64 16 149/82 97 Intake and Output 09/03/24 09/04/24 09/04/24 22:59 06:59 14:59 Other: Voiding Method External Catheter Weight 77.111 kg 77.111 kg Results 09/04/24 02:50 09/04/24 02:50 Cardiac Enzymes 09/03/24 09/03/24 09/04/24 Range/Units 20:35 20:35 00:08 AST 88 H (14-36) U/L Troponin I 0.160 H* 0.142 H* (0.000-0.034) ng/mL 09/04/24 09/04/24 Range/Units 02:50 02:50 AST 175 H (14-36) U/L Troponin I 0.148 H* (0.000-0.034) ng/mL Coagulation 09/03/24 09/04/24 09/04/24 Range/Units 20:35 02:50 05:36 PT 11.5 12.8 H (10.0-12.5) sec APTT 34.8 H 41.1 H (22.0-30.0) sec CBC 09/03/24 09/04/24 Range/Units 20:35 02:50 WBC 19.8 H 15.8 H (3.8-10.6) k/uL RBC 4.24 3.83 (3.80-5.40) m/uL Hgb 11.4 10.5 L (11.4-16.0) gm/dL Hct 36.9 32.9 L (34.0-46.0) % Plt Count 449 344 (150-450) k/uL Comprehensive Metabolic Panel 09/03/24 09/04/24 Range/Units 20:35 02:50 Sodium 138 136 L (137-145) mmol/L Potassium 4.4 4.0 (3.5-5.1) mmol/L Chloride 105 106 (98-107) mmol/L Carbon Dioxide 22 20 L (22-30) mmol/L BUN 28 H 26 H (7-17) mg/dL Creatinine 1.06 H 1.00 (0.52-1.04) mg/dL Glucose 144 H 133 H (74-99) mg/dL Calcium 9.8 9.1 (8.4-10.2) mg/dL AST 88 H 175 H (14-36) U/L ALT 48 H 112 H (4-34) U/L Alkaline Phosphatase 926 H 1136 H (38-126) U/L Total Protein 6.8 5.9 L (6.3-8.2) g/dL Albumin 3.7 3.0 L (3.5-5.0) g/dL Current Medications Generic Name Dose Route Start Last Admin Trade Name Freq PRN Reason Stop Dose Admin Acetaminophen 650 mg 09/03/24 22:52 09/03/24 23:14 Acetaminophen Tab 325 Mg Tab PO 650 mg Q6HR PRN Administration Mild Pain or Fever > 100.5 Amiodarone HCl 200 mg 09/04/24 09:00 Amiodarone 200 Mg Tab PO DAILY [facility] Aspirin 81 mg 09/04/24 09:00 Aspirin 81 Mg PO DAILY [facility] Heparin Sodium (Porcine) 0 unit 09/03/24 22:14 Heparin Sodium 1,000 Un/Ml (10ml Vl) IV PER PROTOCOL PRN Low PTT Protocol Heparin Sodium/Sodium Chloride 250 mls @ 9.253 mls/hr 09/03/24 22:15 09/03/24 23:12 25,000 unit/ Sodium Chloride IV 12 units/kg/hr .Q24H [facility] 9.253 mls/hr Administration Protocol 12 UNITS/KG/HR Vancomycin HCl 1,500 mg/ 500 mls @ 167 mls/hr 09/03/24 23:00 09/03/24 23:20 Sodium Chloride IVPB Not Given Q24H [facility] Piperacillin Sod/Tazobactam 100 mls @ 25 mls/hr 09/04/24 12:00 Sod 3.375 gm/ Sodium Chloride IVPB Q8H [facility] Protocol Metoprolol Tartrate 25 mg 09/04/24 09:00 Metoprolol Tartrate 25 Mg Tab PO BID [facility] Naloxone HCl 0.2 mg 09/03/24 22:52 Naloxone 0.4 Mg/Ml 1 Ml Vial IV Q2M PRN Opioid Reversal Ondansetron HCl 4 mg 09/03/24 22:52 Ondansetron 4 Mg/2 Ml Vial IVP Q8HR PRN Nausea And Vomiting Pantoprazole Sodium 40 mg 09/04/24 07:30 09/04/24 06:31 Pantoprazole 40 Mg Tablet PO 40 mg [id number] [facility] Administration Ticagrelor 90 mg 09/04/24 09:00 Ticagrelor 90 Mg Tab PO BID [facility] Intake and Output 09/03/24 09/04/24 09/04/24 22:59 06:59 14:59 Other: Voiding Method External Catheter Weight 77.111 kg 77.111 kg 09/04/24 02:50 09/04/24 02:50
[2024-09-04] MEDS ORDERED: PIPERACILLIN-TAZOBACTAM 3.375 GM in SODIUM CHLORIDE 0.9% 100 ML IVPB SCH (12:00)
--- NOTE | 2024-09-04 12:05 | P.GSCN ---
History of Present Illness Consult date: 09/04/24 Reason for Consult: Abdominal wall seroma History of present illness: This is a 64-year-old female known to Dr. Dowling. Patient had a previous i ncisional hernia repair with Dr. Dowling. Patient had a recurrence of her hernia. Patient was then sent to [facility]. Patient underwent open repair of incisional hernia approximately 10 days ago. Patient was admitted to hospital due to complaints of back pain. Patient denies any abdominal pain. Past Medical History Past Medical History: Cancer, Deep Vein Thrombosis (DVT), Musculoskeletal Disorder Additional Past Medical History / Comment(s): kidney infection, colon cancer, dvt in leg, ascites, uterine CA History of Any Multi-Drug Resistant Organisms: None Reported Past Surgical History: Bowel Resection, Heart Catheterization With Stent, Hernia Repair, Orthopedic Surgery Additional Past Surgical History / Comment(s): allison wrist surgery 2009, colon resection 09/08, multi paracentesis Past Anesthesia/Blood Transfusion Reactions: No Reported Reaction Date of Last Stent Placement:: 09/11 Past Psychological History: No Psychological Hx Reported Smoking Status: Former smoker Past Alcohol Use History: Rare Additional Past Alcohol Use History / Comment(s): occaisional Past Drug Use History: None Reported - Past Family History Father Family Medical History: Cancer Mother Family Medical History: Vascular Disorder Medications and Allergies Home Medications Medication Instructions Recorded Confirmed Type Calcium Carbonate [Calcium] 600 mg PO DAILY 12/05/21 09/04/24 History Cyanocobalamin [Vitamin B-12] 1,000 mcg PO DAILY 12/05/21 09/04/24 History Apixaban [Eliquis] 5 mg PO DIRECTED 08/31/22 09/04/24 History Ascorbic Acid [Vitamin C] 1,000 mg PO DAILY 11/13/22 09/04/24 History Zinc Gluconate [Zinc] 50 mg PO DAILY 11/13/22 09/04/24 History Acetaminophen 500 - 1,000 mg PO TID PRN MDD 08/27/24 09/04/24 History 3,000mg Cyclobenzaprine [Flexeril] 5 mg PO TID PRN 08/27/24 09/04/24 History Ferrous Sulfate [Feosol] 325 mg PO DAILY 08/27/24 09/04/24 History Magnesium Oxide [Mag-Ox] 400 mg PO DAILY 08/27/24 09/04/24 History traMADol HCL 50 mg PO Q6H PRN 08/27/24 09/04/24 History Amiodarone [Cordarone] 200 mg PO DAILY 30 Days #30 tab 09/01/24 09/04/24 Rx Aspirin 81 mg PO DAILY 5 Days #5 tab 09/01/24 09/04/24 Rx Atorvastatin [Lipitor] 80 mg PO DAILY 30 Days #30 tab 09/01/24 09/04/24 Rx Losartan [Cozaar] 50 mg PO BID 30 Days #60 tab 09/01/24 09/04/24 Rx Metoprolol Tartrate [Lopressor] 25 mg PO BID 30 Days #60 tab 09/01/24 09/04/24 Rx Ticagrelor [Brilinta] 90 mg PO BID 30 Days #60 tab 09/01/24 09/04/24 Rx Allergies Allergy/AdvReac Type Severity Reaction Status Date / Time No Known Allergies Allergy Verified 09/04/24 11:36 Surgical - Exam Vital Signs Temp Pulse Resp BP Pulse Ox 98.2 F 64 16 149/82 97 09/03/24 19:15 09/03/24 19:15 09/03/24 19:15 09/03/24 19:15 09/03/24 19:15 - General well developed, well nourished, no distress - Eyes PERRL - ENT normal pinna, normal nares - Neck no masses, no bruits - Respiratory normal expansion - Cardiovascular Rhythm: regular - Abdomen Midline scar Abdomen: soft, non tender Results - Labs 09/04/24 02:50 09/04/24 02:50 Abnormal Lab Results - Last 24 Hours (Table) 09/03/24 09/03/24 09/03/24 Range/Units 20:35 20:35 20:35 WBC 19.8 H (3.8-10.6) k/uL Hgb (11.4-16.0) gm/dL Hct (34.0-46.0) % RDW 19.8 H (11.5-15.5) % Neutrophils # 17.3 H (1.3-7.7) k/uL PT (10.0-12.5) sec INR (<1.2) APTT 34.8 H (22.0-30.0) sec Sodium (137-145) mmol/L Carbon Dioxide (22-30) mmol/L BUN 28 H (7-17) mg/dL Creatinine 1.06 H (0.52-1.04) mg/dL Glucose 144 H (74-99) mg/dL POC Glucose (mg/dL) (70-110) mg/dL Total Bilirubin (0.2-1.3) mg/dL AST 88 H (14-36) U/L ALT 48 H (4-34) U/L Alkaline Phosphatase 926 H (38-126) U/L Troponin I (0.000-0.034) ng/mL Total Protein (6.3-8.2) g/dL Albumin (3.5-5.0) g/dL 09/03/24 09/04/24 09/04/24 Range/Units 20:35 00:08 02:50 WBC (3.8-10.6) k/uL Hgb (11.4-16.0) gm/dL Hct (34.0-46.0) % RDW (11.5-15.5) % Neutrophils # (1.3-7.7) k/uL PT 12.8 H (10.0-12.5) sec INR 1.2 H (<1.2) APTT (22.0-30.0) sec Sodium (137-145) mmol/L Carbon Dioxide (22-30) mmol/L BUN (7-17) mg/dL Creatinine (0.52-1.04) mg/dL Glucose (74-99) mg/dL POC Glucose (mg/dL) (70-110) mg/dL Total Bilirubin (0.2-1.3) mg/dL AST (14-36) U/L ALT (4-34) U/L Alkaline Phosphatase (38-126) U/L Troponin I 0.160 H* 0.142 H* (0.000-0.034) ng/mL Total Protein (6.3-8.2) g/dL Albumin (3.5-5.0) g/dL 09/04/24 09/04/24 09/04/24 Range/Units 02:50 02:50 02:50 WBC 15.8 H (3.8-10.6) k/uL Hgb 10.5 L (11.4-16.0) gm/dL Hct 32.9 L (34.0-46.0) % RDW 19.6 H (11.5-15.5) % Neutrophils # 13.6 H (1.3-7.7) k/uL PT (10.0-12.5) sec INR (<1.2) APTT (22.0-30.0) sec Sodium 136 L (137-145) mmol/L Carbon Dioxide 20 L (22-30) mmol/L BUN 26 H (7-17) mg/dL Creatinine (0.52-1.04) mg/dL Glucose 133 H (74-99) mg/dL POC Glucose (mg/dL) (70-110) mg/dL Total Bilirubin 1.9 H (0.2-1.3) mg/dL AST 175 H (14-36) U/L ALT 112 H (4-34) U/L Alkaline Phosphatase 1136 H (38-126) U/L Troponin I 0.148 H* (0.000-0.034) ng/mL Total Protein 5.9 L (6.3-8.2) g/dL Albumin 3.0 L (3.5-5.0) g/dL 09/04/24 09/04/24 Range/Units 05:36 06:45 WBC (3.8-10.6) k/uL Hgb (11.4-16.0) gm/dL Hct (34.0-46.0) % RDW (11.5-15.5) % Neutrophils # (1.3-7.7) k/uL PT (10.0-12.5) sec INR (<1.2) APTT 41.1 H (22.0-30.0) sec Sodium (137-145) mmol/L Carbon Dioxide (22-30) mmol/L BUN (7-17) mg/dL Creatinine (0.52-1.04) mg/dL Glucose (74-99) mg/dL POC Glucose (mg/dL) 114 H (70-110) mg/dL Total Bilirubin (0.2-1.3) mg/dL AST (14-36) U/L ALT (4-34) U/L Alkaline Phosphatase (38-126) U/L Troponin I (0.000-0.034) ng/mL Total Protein (6.3-8.2) g/dL Albumin (3.5-5.0) g/dL Diabetes panel 09/03/24 09/04/24 Range/Units 20:35 02:50 Sodium 138 136 L (137-145) mmol/L Potassium 4.4 4.0 (3.5-5.1) mmol/L Chloride 105 106 (98-107) mmol/L Carbon Dioxide 22 20 L (22-30) mmol/L BUN 28 H 26 H (7-17) mg/dL Creatinine 1.06 H 1.00 (0.52-1.04) mg/dL Glucose 144 H 133 H (74-99) mg/dL Calcium 9.8 9.1 (8.4-10.2) mg/dL AST 88 H 175 H (14-36) U/L ALT 48 H 112 H (4-34) U/L Alkaline Phosphatase 926 H 1136 H (38-126) U/L Total Protein 6.8 5.9 L (6.3-8.2) g/dL Albumin 3.7 3.0 L (3.5-5.0) g/dL Calcium panel 09/03/24 09/04/24 Range/Units 20:35 02:50 Calcium 9.8 9.1 (8.4-10.2) mg/dL Albumin 3.7 3.0 L (3.5-5.0) g/dL Pituitary panel 09/03/24 09/04/24 Range/Units 20:35 02:50 Sodium 138 136 L (137-145) mmol/L Potassium 4.4 4.0 (3.5-5.1) mmol/L Chloride 105 106 (98-107) mmol/L Carbon Dioxide 22 20 L (22-30) mmol/L BUN 28 H 26 H (7-17) mg/dL Creatinine 1.06 H 1.00 (0.52-1.04) mg/dL Glucose 144 H 133 H (74-99) mg/dL Calcium 9.8 9.1 (8.4-10.2) mg/dL Adrenal panel 09/03/24 09/04/24 Range/Units 20:35 02:50 Sodium 138 136 L (137-145) mmol/L Potassium 4.4 4.0 (3.5-5.1) mmol/L Chloride 105 106 (98-107) mmol/L Carbon Dioxide 22 20 L (22-30) mmol/L BUN 28 H 26 H (7-17) mg/dL Creatinine 1.06 H 1.00 (0.52-1.04) mg/dL Glucose 144 H 133 H (74-99) mg/dL Calcium 9.8 9.1 (8.4-10.2) mg/dL Total Bilirubin 1.2 1.9 H (0.2-1.3) mg/dL AST 88 H 175 H (14-36) U/L ALT 48 H 112 H (4-34) U/L Alkaline Phosphatase 926 H 1136 H (38-126) U/L Total Protein 6.8 5.9 L (6.3-8.2) g/dL Albumin 3.7 3.0 L (3.5-5.0) g/dL Assessment and Plan Plan: Postoperative abdominal wall seroma. Patient will be evaluated by her surgeon at her follow-up appointment. There is no surgical invention planned at this point.
[2024-09-04] MEDS: metroNIDAZOLE-NS PMX 500 MG in SALINE 1 100ML.BAG IVPB SCH (16:57)
[2024-09-04] MEDS: APIXABAN 5 MG TAB PO SCH (21:04)
[2024-09-04] MEDS ORDERED: CEFEPIME 2 GM in SODIUM CHLORIDE 0.9% 100 ML IVPB SCH (23:00)
[2024-09-05 07:36] LABS: Anisocytosis Slight; Basophils % (A) 0 %; Eosinophils # (A) 0.3 k/uL (0-0.7); Eosinophils % (A) 2 %; HCT 31.7 % (34.0-46.0); HGB 10.1 gm/dL (11.4-16.0); Hypochromasia Moderate; Lymphocytes # (A) 1.2 k/uL (1.0-4.8); Lymphocytes % (A) 8 %; MCH 27.7 pg (25.0-35.0); MCHC 31.8 g/dL (31.0-37.0); Mean Platelet Volume 7.2; Microcytosis Slight; Monocytes # (A) 0.7 k/uL (0-1.0); Monocytes % (A) 5 %; Neutrophils # (A) 12.2 k/uL (1.3-7.7); Neutrophils % (A) 84 %; Platelet Count 338 k/uL (150-450); RBC 3.64 m/uL (3.80-5.40); RDW 19.7 % (11.5-15.5); WBC 14.6 k/uL (3.8-10.6)
[2024-09-05 07:56] LABS: ALT 104 U/L (4-34); AST 94 U/L (14-36); African American GFR (CKD) 49 (>60 ml/min/1.73 sqM); Albumin 2.9 g/dL (3.5-5.0); Alkaline Phosphatase 948 U/L (38-126); Anion Gap 9 mmol/L; Blood Urea Nitrogen 24 mg/dL (7-17); Calcium 8.4 mg/dL (8.4-10.2); Carbon Dioxide 18 mmol/L (22-30); Chloride 109 mmol/L (98-107); Glucose 119 mg/dL (74-99); Magnesium 1.7 mg/dL (1.6-2.3); Non-African American GFR(CKD) 43 (>60 ml/min/1.73 sqM); Potassium 3.7 mmol/L (3.5-5.1); Sodium 136 mmol/L (137-145); Total Bilirubin 2.9 mg/dL (0.2-1.3); Total Protein 5.9 g/dL (6.3-8.2)
[2024-09-05 12:30] VITALS: BMI 29.7
--- NOTE | 2024-09-05 14:03 | P.PN ---
Subjective Progress Note Date: 09/05/24 HISTORY OF PRESENT ILLNESS: This is a 64-year-old female with a past medical history significant for colon cancer with metastasis to the liver, recent hiatal hernia repair, and CAD with recent stenting. Patient follows in the office with Dr. Justice. We have been asked to see the patient in consultation for elevated troponins. Patient examined at the bedside. Patient was recently hospitalized due to ventricular tachycardia and non-STEMI. She underwent cardiac catheterization with Dr. Justice on 08/30/2024 with stenting to the mid left circumflex. Patient was also found to have first obtuse marginal branch chronically occluded with retrograde filling. The patient was discharged home on triple therapy with aspirin, Brilinta, and Eliquis. Patient was to discontinue her aspirin after 1 week. The patient was discharged home on . She presented back to the hospital with a chief complaint of back pain. She states the pain was in the middle of her back. She denied having any chest pain or pressure. Denied having any shortness of breath. The patient was found to have mildly elevated troponins and was started on IV heparin. Her Eliquis was placed on hold. DIAGNOSTICS: - EKG reveals sinus mechanism with left bundle branch block - Chest xray bibasilar infiltrates likely subsegmental atelectasis - Laboratory data: WBC 19.8. Repeat 15.8. Hemoglobin 10.5. Platelet count 344. Sodium 136. Potassium 4.0. BUN 26. Creatinine 1.0. AST 175. ALT 112. Alkaline phosphatase 1136. Troponin 0.160. 0.142. 0.148. proBNP 883. - Current home cardiac medications include Brilinta 90 mg twice a day, metoprolol tartrate 25 mg twice a day, losartan 50 mg twice a day, Lipitor 80 mg daily, aspirin 81 mg daily, Eliquis 5 mg twice a day, and amiodarone 200 mg daily - Most recent echocardiogram obtained on 08/29/2024 ejection fraction 55 to 60%, moderate pulmonary hypertension, trace MR, trace TR - Cardiac catheterization history: 08/30/2024 with stenting to the mid left circumflex. Patient was also found to have first obtuse marginal branch chronically occluded with retrograde filling. 09/05/2024 Patient states that she is doing very poorly today because of back pain. She states she came in with back pain but this went away and now this morning it came back and it is in the lower thoracic and lumbar areas. She denies having any chest pain or chest pressure. She states her breathing is okay. No fever or chills. Her appetite is okay. Her family members of told her that she looks jaundice. Blood pressure 117/61, heart rate 69, pulse ox 96% on room air. Repe at blood work reveals WBC 14.6, hemoglobin 10.1. BUN 24 creatinine 1.31, sodium 136, potassium 3.7, CO2 18. Liver function tests are elevated with total bilirubin 2.9, AST 94, ALT 104, alkaline phosphatase 948. Liver function test are improved from yesterday. Magnesium 1.7. IV heparin was discontinued yesterday. Eliquis is on hold until general surgery evaluates patient amiodarone was also discontinued due to transaminitis PHYSICAL EXAM: VITAL SIGNS: Reviewed. GENERAL: Well-developed in no acute distress. HEENT: Head is normocephalic. Pupils are equal, round. Sclerae anicteric. Mucous membranes of the mouth are moist. Neck supple. No JVD or thyromegaly LUNGS: Respirations even and unlabored. Lungs essentially clear to auscultation bilaterally. HEART: Regular rate and rhythm. S1 and S2 heard. + systolic murmur ABDOMEN: Soft. Nondistended. Nontender. EXTREMITIES: Normal range of motion. No clubbing or cyanosis. Peripheral pulses intact. No lower extremity edema NEUROLOGIC: Awake and alert. Oriented x 3. ASSESSMENT: Back pain Abdominal fluid collection, s/p recent hiatal hernia repair, at [facility] in [place] Coronary artery disease with recent stenting of the circumflex, 08/30/2024 Recent hospitalization for non-STEMI and ventricular tachycardia Elevated troponins, trending down from recent non-STEMI, no evidence of acute coronary syndrome Acute kidney injury Transaminitis Moderate pulmonary hypertension Colon cancer with metastasis to the liver, previously on chemotherapy which has been placed on hold due to recent hiatal hernia surgery History of DVT, on Eliquis outpatient PLAN: An acute coronary event has been ruled out Patient was discharged home on aspirin, Plavix, and Eliquis. Patient to discontinue her aspirin after 1 week which will be September 06, 2024 Continue to hold Eliquis at this time until general surgery evaluates patient. Discontinue amiodarone due to transaminitis Continue additional cardiac medications Further recommendations pending patient course Nurse practitioner note has been reviewed by physician. Signing provider agrees with the documented findings, assessment, and plan of care documented by [employer] as a scribe. Objective - Vital Signs Vital signs: Vital Signs Temp 98.1 F 09/05/24 11:25 Pulse 62 09/05/24 11:25 Resp 16 09/05/24 11:25 BP 116/69 09/05/24 11:25 Pulse Ox 98 09/05/24 11:25 FiO2 Intake & Output 09/04/24 09/05/24 09/05/24 18:59 06:59 18:59 Intake Total 5008 601 5028 Balance 7577 817 9769 Weight 78.5 kg 78.5 kg Intake: IV 10 0.9 10 Intake, IV Titration 700 Amount Cefepime 2 gm In Sodium 100 Chloride 0.9% 100 ml @ 25 mls/hr IVPB Q8HR [facility] Rx# :[id number] Vancomycin 1,500 mg In 500 Sodium Chloride 0.9% 500 ml 500 ml @ 167 mls/hr IVPB Q24H [facility] Rx#: [id number] PMX 500 100 mg In Saline 1 100ml.bag @ 100 mls/hr IVPB Q8HR [facility] Rx#:[id number] Oral 1080 1320 Other: Voiding Method External Catheter Toilet Toilet # Voids 4 1 1 # Bowel Movements 1 - Labs CBC & Chem 7: 09/05/24 06:37 09/05/24 06:37 Labs: Abnormal Lab Results - Last 24 Hours (Table) 09/05/24 09/05/24 Range/Units 06:37 06:37 WBC 14.6 H (3.8-10.6) k/uL RBC 3.64 L (3.80-5.40) m/uL Hgb 10.1 L (11.4-16.0) gm/dL Hct 31.7 L (34.0-46.0) % RDW 19.7 H (11.5-15.5) % Neutrophils # 12.2 H (1.3-7.7) k/uL Sodium 136 L (137-145) mmol/L Chloride 109 H (98-107) mmol/L Carbon Dioxide 18 L (22-30) mmol/L BUN 24 H (7-17) mg/dL Creatinine 1.31 H (0.52-1.04) mg/dL Glucose 119 H (74-99) mg/dL Total Bilirubin 2.9 H (0.2-1.3) mg/dL AST 94 H (14-36) U/L ALT 104 H (4-34) U/L Alkaline Phosphatase 948 H (38-126) U/L Total Protein 5.9 L (6.3-8.2) g/dL Albumin 2.9 L (3.5-5.0) g/dL Microbiology - Last 24 Hours (Table) 09/03/24 23:24 Blood Culture - Preliminary Blood
--- NOTE | 2024-09-05 14:03 | P.PN ---
Subjective Progress Note Date: 09/05/24 SURGICAL PROGRESS NOTE CHIEF COMPLAINT: Back pain HISTORY OF PRESENT ILLNESS: Surgical service following in regards to seroma. Patient denies any abdominal pain. Denies any drainage from incision site. Denies any nausea or vomiting. Afebrile. WBC is down from 15-14.6 Hgb 10.1 total bilirubin 2.9 LFTs trending down. No abdominal pain. PHYSICAL EXAM: VITAL SIGNS: Reviewed. GENERAL: Well-developed in no acute distress. ABDOMEN: Soft. Nondistended. Nontender. Midline incision clean dry and intact NEUROLOGIC: Alert and oriented. Cranial nerves II through XII grossly intact. ASSESSMENT: 1. Postoperative abdominal wall seroma 2. History of open repair incisional hernia at [facility] in the beginning of August 3. History of colon cancer with left colectomy PLAN: -No surgical intervention planned -Continue abdominal binder -Patient to follow-up with her surgeon at her follow-up appointment -Continue antibiotic Physician Vice President Of Sales note has been reviewed by physician. Signing provider agrees with the documented findings, assessment, and plan of care. Objective - Vital Signs Vital signs: Vital Signs Temp 98.1 F 09/05/24 11:25 Pulse 62 09/05/24 11:25 Resp 16 09/05/24 11:25 BP 116/69 09/05/24 11:25 Pulse Ox 98 09/05/24 11:25 FiO2 Intake & Output 09/04/24 09/05/24 09/05/24 18:59 06:59 18:59 Intake Total 1080 710 660 Balance 1080 710 660 Weight 78.5 kg Intake: IV 10 0.9 10 Intake, IV Titration 700 Amount Cefepime 2 gm In Sodium 100 Chloride 0.9% 100 ml @ 25 mls/hr IVPB Q8HR [facility] Rx# :[id number] Vancomycin 1,500 mg In 500 Sodium Chloride 0.9% 500 ml 500 ml @ 167 mls/hr IVPB Q24H [facility] Rx#: [id number] metroNIDAZOLE-NS PMX 500 100 mg In Saline 1 100ml.bag @ 100 mls/hr IVPB Q8HR [facility] Rx#:[id number] Oral 1080 660 Other: Voiding Method External Catheter Toilet Toilet # Voids 4 1 1 # Bowel Movements 1 - Labs CBC & Chem 7: 09/05/24 06:37 11/18/24 06:37 Labs: Abnormal Lab Results - Last 24 Hours (Table) 09/04/24 09/05/24 09/05/24 Range/Units 11:41 06:37 06:37 WBC 14.6 H (3.8-10.6) k/uL RBC 3.64 L (3.80-5.40) m/uL Hgb 10.1 L (11.4-16.0) gm/dL Hct 31.7 L (34.0-46.0) % RDW 19.7 H (11.5-15.5) % Neutrophils # 12.2 H (1.3-7.7) k/uL APTT 43.3 H (22.0-30.0) sec Sodium 136 L (137-145) mmol/L Chloride 109 H (98-107) mmol/L Carbon Dioxide 18 L (22-30) mmol/L BUN 24 H (7-17) mg/dL Creatinine 1.31 H (0.52-1.04) mg/dL Glucose 119 H (74-99) mg/dL Total Bilirubin 2.9 H (0.2-1.3) mg/dL AST 94 H (14-36) U/L ALT 104 H (4-34) U/L Alkaline Phosphatase 948 H (38-126) U/L Total Protein 5.9 L (6.3-8.2) g/dL Albumin 2.9 L (3.5-5.0) g/dL
--- NOTE | 2024-09-05 17:33 | P.PN ---
Subjective Progress Note Date: 09/05/24 64-year-old female with colon cancer (stage IV, s/p colectomy 08/2021, following with Dr. Morales, currently on ), DVT (on qu), and hiatal hernia repair on 08/25/2024 and a history of uterine cancer and ascites. Is presenting to the emergency department complaining of mid back pain. Recent heart cath with stent placement on 08/30/2024 -Chest x-ray done in the ER showed bibasilar infiltrates likely subsegmental atelectasis -Thoracic aorta CT showed ascending thoracic aortic aneurysm of 4.1 cm; no descending thoracic or abdominal aortic aneurysm evident; no aortic dissection evident; large fluidlike collection with some air in the anterior abdominal wall has enlarged following surgery when comparing to the presurgical image. -EKG done in the ER showed heart rate of 66, evidence of a left bundle branch block; QTc 438; negative for Sgarbossa's criteria. -Second EKG done in the ER showed heart rate of 78, evidence of a left bundle branch block; QTc 425; negative for Sgarbossa's criteria On arrival, patient was febrile, rest of the vital signs within normal limits. White count elevated to 19.8, creatinine 1.06, troponin peaked at 0.16. Patient started on heparin drip and IV Zosyn and vancomycin. General surgery and cardiology was consulted. Patient seen and examined at bedside. No acute events overnight. No active chest pain. Vitals Signs Reviewed. General: Nontoxic, no distress, appears at stated age Derm: Warm, dry, right chest port site clean, dry, intact Head: Atraumatic, normocephalic, symmetric Eyes: EOMI, no lid lag, anicteric sclera Mouth: No lip lesion, mucus membranes moist Cardiovascular: S1S2 reg, no murmur Lungs: CTA bilateral, no rhonchi, no rales, no accessory muscle use Ext: No gross muscle atrophy, no edema, no contractures Neuro: no focal neuro deficits Psych: Alert, oriented, appropriate affect Data Reviewed Today: Pertinent Labs: WBC 14.6, RBC 3.64, Hg 10.1, Hct 31.7, Na 136, Cl 109, bicarb 18, BUN 24, Cr 1.31, glu 119, T. Bili 2.9, AST 94, ALT 104, alk phos 948, alb 2.9. Imaging: No new imaging Assessment and Plan: Sepsis likely secondary to surgical site infection Recent abdominal hernia surgery at [place] -General Surgery consulted - no surgical intervention -Continue vancomycin 1500 mg daily, monitor renal function -To prevent renal toxicity, will switch IV Zosyn to cefepime and Flagyl -Cultures negative so far -ID consulted NSTEMI, likely type II CAD status post recent stent placement on 08/30/2024 -Aspirin 81 mg, Brilinta 90 twice daily, metoprolol 25 twice daily -Cardiology consulted, discontinue amiodarone due to transaminitis. 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 Keytruda Hypertension DVT ppx: Eliquis Code status: Full code Objective - Vital Signs Vital signs: Vital Signs Temp 97.7 F 09/05/24 15:26 Pulse 60 09/05/24 15:26 Resp 16 09/05/24 15:26 BP 155/61 09/05/24 15:26 Pulse Ox 100 09/05/24 15:26 FiO2 Intake & Output 09/04/24 09/05/24 09/05/24 18:59 06:59 18:59 Intake Total 4893 516 5851 Balance 9652 496 2341 Weight 78.5 kg 78.5 kg Intake: IV 10 0.9 10 Intake, IV Titration 700 Amount Cefepime 2 gm In Sodium 100 Chloride 0.9% 100 ml @ 25 mls/hr IVPB Q8HR [facility] Rx# :[id number] Vancomycin 1,500 mg In 500 Sodium Chloride 0.9% 500 ml 500 ml @ 167 mls/hr IVPB Q24H [facility] Rx#: [id number] metroNIDAZOLE-NS PMX 500 100 mg In Saline 1 100ml.bag @ 100 mls/hr IVPB Q8HR [facility] Rx#:[id number] Oral 1080 1320 Other: Voiding Method External Catheter Toilet Toilet # Voids 4 1 1 # Bowel Movements 1 - Labs CBC & Chem 7: 09/05/24 06:37 09/05/24 06:37 Labs: Abnormal Lab Results - Last 24 Hours (Table) 09/05/24 09/05/24 Range/Units 06:37 06:37 WBC 14.6 H (3.8-10.6) k/uL RBC 3.64 L (3.80-5.40) m/uL Hgb 10.1 L (11.4-16.0) gm/dL Hct 31.7 L (34.0-46.0) % RDW 19.7 H (11.5-15.5) % Neutrophils # 12.2 H (1.3-7.7) k/uL Sodium 136 L (137-145) mmol/L Chloride 109 H (98-107) mmol/L Carbon Dioxide 18 L (22-30) mmol/L BUN 24 H (7-17) mg/dL Creatinine 1.31 H (0.52-1.04) mg/dL Glucose 119 H (74-99) mg/dL Total Bilirubin 2.9 H (0.2-1.3) mg/dL AST 94 H (14-36) U/L ALT 104 H (4-34) U/L Alkaline Phosphatase 948 H (38-126) U/L Total Protein 5.9 L (6.3-8.2) g/dL Albumin 2.9 L (3.5-5.0) g/dL Microbiology - Last 24 Hours (Table) 09/03/24 23:24 Blood Culture - Preliminary Blood
[2024-09-05] MEDS: CEFEPIME 2 GM in SODIUM CHLORIDE 0.9% 100 ML IVPB SCH (20:34)
--- NOTE | 2024-09-05 22:04 | P.CONS ---
History of Present Illness - Reason for Consult Consult date: 09/05/24 Surgical site infection Requesting physician: Carlota Wang - Chief Complaint Shoulder blade and arm pain x 1 day - History of Present Illness Patient is a 64-year-old female with a past medical history significant for colon cancer uterine cancer in this patient who recently did have a open repair of the incisional hernia at the [facility] patient was just discharged from hospital after a week stay and presented back to the hospital concerning or pain to the mid/upper back which was related to bilateral upper extremity patient describing the pain to be sharp moderate to severe intensity which comes and goes and subsequently has resolved patient did have a low-grade fever of 100.6 on 09/03/2024 and subsequently 100.8 F at midnight patient has been afebrile since then patient was not tachycardic hypotensive or hypoxic she did have a white count of 15.8 which is subsequently down to 14.6 creatinine is mildly elevated did have elevated liver enzymes blood cultures obtained which are currently pending patient did have a chest x-ray bibasilar infiltrate likely subsegmental atelectasis patient did have a thoracic aorta CT we did shows large fluid like collection with some air in the anterior abdominal wall has enlarged following surgery comparing with the previous image patient has been empirically treated with cefepime and Flagyl along with vancomycin infectious he was consulted today concern for surgical site infection patient currently denies having any pain to the lower abdominal area patient incision with diana intact no redness or any drainage Review of Systems Positive point and negatives has been mentioned in the HPI, complete review of systems was performed and all other systems are negative Past Medical History Past Medical History: Cancer, Deep Vein Thrombosis (DVT), Musculoskeletal Disorder Additional Past Medical History / Comment(s): kidney infection, colon cancer, dvt in leg, ascites, uterine CA History of Any Multi-Drug Resistant Organisms: None Reported Past Surgical History: Bowel Resection, Heart Catheterization With Stent, Hernia Repair, Orthopedic Surgery Additional Past Surgical History / Comment(s): allison wrist surgery 2009, colon resection 09/08, multi paracentesis Past Anesthesia/Blood Transfusion Reactions: No Reported Reaction Date of Last Stent Placement:: 09/11 Past Psychological History: No Psychological Hx Reported Smoking Status: Former smoker Past Alcohol Use History: Rare Additional Past Alcohol Use History / Comment(s): occaisional Past Drug Use History: None Reported - Past Family History Father Family Medical History: Cancer Mother Family Medical History: Vascular Disorder Medications and Allergies Home Medications Medication Instructions Recorded Confirmed Type Calcium Carbonate [Calcium] 600 mg PO DAILY 12/05/21 09/04/24 History Cyanocobalamin [Vitamin B-12] 1,000 mcg PO DAILY 12/05/21 09/04/24 History Apixaban [Eliquis] 5 mg PO DIRECTED 08/31/22 09/04/24 History Ascorbic Acid [Vitamin C] 1,000 mg PO DAILY 11/13/22 09/04/24 History Zinc Gluconate [Zinc] 50 mg PO DAILY 11/13/22 09/04/24 History Acetaminophen 500 - 1,000 mg PO TID PRN MDD 08/27/24 09/04/24 History 3,000mg Cyclobenzaprine [Flexeril] 5 mg PO TID PRN 08/27/24 09/04/24 History Ferrous Sulfate [Feosol] 325 mg PO DAILY 08/27/24 09/04/24 History Magnesium Oxide [Mag-Ox] 400 mg PO DAILY 08/27/24 09/04/24 History traMADol HCL 50 mg PO Q6H PRN 08/27/24 09/04/24 History Amiodarone [Cordarone] 200 mg PO DAILY 30 Days #30 tab 09/01/24 09/04/24 Rx Aspirin 81 mg PO DAILY 5 Days #5 tab 09/01/24 09/04/24 Rx Atorvastatin [Lipitor] 80 mg PO DAILY 30 Days #30 tab 09/01/24 09/04/24 Rx Losartan [Cozaar] 50 mg PO BID 30 Days #60 tab 09/01/24 09/04/24 Rx Metoprolol Tartrate [Lopressor] 25 mg PO BID 30 Days #60 tab 09/01/24 09/04/24 Rx Ticagrelor [Brilinta] 90 mg PO BID 30 Days #60 tab 09/01/24 09/04/24 Rx Allergies Allergy/AdvReac Type Severity Reaction Status Date / Time No Known Allergies Allergy Verified 09/04/24 11:36 Physical Exam Vitals: Vital Signs Temp Pulse Resp BP Pulse Ox 09/05/24 08:00 97.7 F 69 16 117/61 96 09/05/24 04:00 97.7 F 65 18 128/67 98 09/05/24 01:50 71 18 09/05/24 00:36 71 18 09/05/24 00:00 100.8 F H 71 18 142/69 94 L 09/04/24 19:53 98.8 F 80 17 122/65 95 09/04/24 16:00 98.5 F 73 18 151/75 97 09/04/24 14:00 55 L 16 09/04/24 12:00 97.6 F 55 L 16 113/63 99 Intake and Output 09/04/24 09/05/24 09/05/24 22:59 06:59 14:59 Intake Total 540 710 120 Balance 540 710 120 Intake: IV 10 0.9 10 Intake, IV Titration 700 Amount Cefepime 2 gm In Sodium 100 Chloride 0.9% 100 ml @ 25 mls/hr IVPB Q8HR [facility] Rx# :[id number] Vancomycin 1,500 mg In 500 Sodium Chloride 0.9% 500 ml 500 ml @ 167 mls/hr IVPB Q24H [facility] Rx#: [id number] metroNIDAZOLE-NS PMX 500 100 mg In Saline 1 100ml.bag @ 100 mls/hr IVPB Q8HR [facility] Rx#:[id number] Oral 540 120 Other: Voiding Method External Catheter Toilet Toilet # Voids 4 1 # Bowel Movements 1 Weight 78.5 kg GENERAL DESCRIPTION: Elderly female up in the chair no distress. No tachypnea or accessory muscle of respiration use. HEENT: Shows Pallor , no scleral icterus. Oral mucous membrane is dry. No pharyngeal erythema or thrush NECK: Trachea central, no thyromegaly. LUNGS: Unlabored breathing. Clear to auscultation anteriorly. No wheeze or crackle. HEART: S1, S2, regular rate and rhythm. No loud murmur ABDOMEN: Soft, midline incisions with diana intact no swelling or redness no tenderness EXTREMITIES: No edema of feet. SKIN: No rash, no masses palpable. NEUROLOGICAL: The patient is awake, alert, oriented x3, mood and affect normal. Results CBC & Chem 7: 09/06/24 05:54 09/06/24 05:54 Labs: Abnormal Lab Results - Last 24 Hours (Table) 09/04/24 09/05/24 09/05/24 Range/Units 11:41 06:37 06:37 WBC 14.6 H (3.8-10.6) k/uL RBC 3.64 L (3.80-5.40) m/uL Hgb 10.1 L (11.4-16.0) gm/dL Hct 31.7 L (34.0-46.0) % RDW 19.7 H (11.5-15.5) % Neutrophils # 12.2 H (1.3-7.7) k/uL APTT 43.3 H (22.0-30.0) sec Sodium 136 L (137-145) mmol/L Chloride 109 H (98-107) mmol/L Carbon Dioxide 18 L (22-30) mmol/L BUN 24 H (7-17) mg/dL Creatinine 1.31 H (0.52-1.04) mg/dL Glucose 119 H (74-99) mg/dL Total Bilirubin 2.9 H (0.2-1.3) mg/dL AST 94 H (14-36) U/L ALT 104 H (4-34) U/L Alkaline Phosphatase 948 H (38-126) U/L Total Protein 5.9 L (6.3-8.2) g/dL Albumin 2.9 L (3.5-5.0) g/dL Assessment and Plan (1) Fever Current Visit: Yes Status: Acute Code(s): R50.9 - FEVER, UNSPECIFIED SNOMED Code(s): 073703393 (2) Leukocytosis Current Visit: Yes Status: Acute Code(s): D72.829 - ELEVATED WHITE BLOOD CELL COUNT, UNSPECIFIED SNOMED Code(s): 738260203 (3) Abdominal wall seroma Current Visit: Yes Status: Acute Code(s): S30.1XXA - CONTUSION OF ABDOMINAL WALL, INITIAL ENCOUNTER SNOMED Code(s): 251482566 Plan: 1patient who recently did have a abdominal incisional hernia repair just got discharged from [facility] now presented to hospital mostly with the pain to the upper back below the shoulder blade in this patient who did have a thoracic CT which did shows evidence of fluid collection to the anterior abdominal wall with some air did have low-grade fever elevated white count with concern for possible seroma/infected seroma however no evidence of any ce llulitis or tenderness on examination 2-patient benefit from CT-guided aspiration of this fluid which should be sent for Gram stain and culture 3-for now continue with the current broad-spectrum antibiotics in the form of cefepime and vancomycin, along with Flagyl while waiting for the workup to be completed We will follow on clinical condition and cultures to further adjust medication if needed Thank you for this consultation we will follow the patient along with you Dictation was produced using [employer] dictation software. please excuse any grammatical, word or spelling errors. Time with Patient: Greater than 30
[2024-09-06 01:36] LABS: Amorphous Sediment,Urine Occasional /hpf; Appearance,Urine Cloudy (Clear); Bacteria,Urine Few /hpf; Bilirubin,Urine Negative (Negative); Blood,Urine Moderate (Negative); Color,Urine Light Yellow; Glucose,Urine (UA) Negative (Negative); Ketones,Urine Negative (Negative); Leukocyte Esterase,Urine Large (Negative); Nitrite,Urine Negative (Negative); PH, Urine 6.5 (5.0-8.0); Protein,Urine Negative (Negative); RBC,Urine 5 /hpf (0-5); Specific Gravity,Urine 1.006 (1.001-1.035); Squamous Epithelial Cell,Urine 5 /hpf (0-4); Urobilinogen,Urine <2.0 mg/dL (<2.0); WBC,Urine 50 /hpf (0-5)
[2024-09-06 06:15] LABS: Anisocytosis Slight; Basophils % (A) 0 %; Eosinophils # (A) 0.3 k/uL (0-0.7); Eosinophils % (A) 2 %; HCT 28.9 % (34.0-46.0); HGB 9.2 gm/dL (11.4-16.0); Hypochromasia Moderate; Lymphocytes # (A) 1.6 k/uL (1.0-4.8); Lymphocytes % (A) 10 %; MCH 27.7 pg (25.0-35.0); MCHC 31.8 g/dL (31.0-37.0); Mean Platelet Volume 7.3; Microcytosis Slight; Monocytes # (A) 0.9 k/uL (0-1.0); Monocytes % (A) 6 %; Neutrophils # (A) 12.6 k/uL (1.3-7.7); Neutrophils % (A) 81 %; Platelet Count 328 k/uL (150-450); RBC 3.32 m/uL (3.80-5.40); WBC 15.5 k/uL (3.8-10.6)
[2024-09-06 06:28] LABS: ALT 78 U/L (4-34); AST 60 U/L (14-36); African American GFR (CKD) 46 (>60 ml/min/1.73 sqM); Albumin 2.7 g/dL (3.5-5.0); Alkaline Phosphatase 838 U/L (38-126); Anion Gap 9 mmol/L; Blood Urea Nitrogen 22 mg/dL (7-17); Calcium 8.1 mg/dL (8.4-10.2); Carbon Dioxide 16 mmol/L (22-30); Chloride 110 mmol/L (98-107); Glucose 108 mg/dL (74-99); Non-African American GFR(CKD) 40 (>60 ml/min/1.73 sqM); Potassium 3.5 mmol/L (3.5-5.1); Sodium 135 mmol/L (137-145); Total Bilirubin 2.3 mg/dL (0.2-1.3); Total Protein 5.6 g/dL (6.3-8.2)
--- NOTE | 2024-09-06 11:54 | P.PN ---
Subjective Progress Note Date: 09/06/24 64-year-old female with colon cancer (stage IV, s/p colectomy 08/2021, following with Dr. Morales, currently on hol), DVT (on ), and hiatal hernia repair on 08/25/2024 and a history of uterine cancer and ascites. Is presenting to the emergency department complaining of mid back pain. Recent heart cath with stent placement on 08/30/2024 -Chest x-ray done in the ER showed bibasilar infiltrates likely subsegmental atelectasis -Thoracic aorta CT showed ascending thoracic aortic aneurysm of 4.1 cm; no descending thoracic or abdominal aortic aneurysm evident; no aortic dissection evident; large fluidlike collection with some air in the anterior abdominal wall has enlarged following surgery when comparing to the presurgical image. -EKG done in the ER showed heart rate of 66, evidence of a left bundle branch block; QTc 438; negative for Sgarbossa's criteria. -Second EKG done in the ER showed heart rate of 78, evidence of a left bundle branch block; QTc 425; negative for Sgarbossa's criteria On arrival, patient was febrile, rest of the vital signs within normal limits. White count elevated to 19.8, creatinine 1.06, troponin peaked at 0.16. Patient started on heparin drip and IV Zosyn and vancomycin. General surgery and cardiology was consulted. Patient seen and examined at bedside. No acute events overnight. Discussed with Dr. Krishnan, consult IR for abdominal wall fluid collection for culture. Vitals Signs Reviewed. General: Nontoxic, no distress, appears at stated age Derm: Warm, dry, right chest port site clean, dry, intact Head: Atraumatic, normocephalic, symmetric Eyes: EOMI, no lid lag, anicteric sclera Mouth: No lip lesion, mucus membranes moist Cardiovascular: S1S2 reg, no murmur Lungs: CTA bilateral, no rhonchi, no rales, no accessory muscle use Ext: No gross muscle atrophy, no edema, no contractures Neuro: no focal neuro deficits Psych: Alert, oriented, appropriate affect Data Reviewed Today: Pertinent Labs: WBC 15.5, RB 3.32, Hg 9.2, Hct 28/9, Na 135, Cl 110, bicarb 16, BUN 22, Cr 1.39, glu 108, T. Bili 2.3, AST 60, ALT 78, alk phos 838, alb 2.7. UA large LE. Imaging: No new imaging Assessment and Plan: Sepsis likely secondary to surgical site infection [place] [facility]General Surgery consulted - no surgical intervention -Continue vancomycin 1500 mg daily, monitor renal function -To prevent renal toxicity, will switch IV Zosyn to cefepime and Flagyl -Cultures negative so far -ID consulted, consult IR for abdominal wall fluid collection for culture NSTEMI, likely type II CAD status post recent stent placement on 08/30/2024 -Aspirin 81 mg, Brilinta 90 twice daily, metoprolol 25 twice daily -Cardiology consulted, discontinue amiodarone due to transaminitis. 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 on Keytruda Hypertension DVT ppx: Eliquis Code status: Full code Objective - Vital Signs Vital signs: Vital Signs Temp 97.5 F L 09/06/24 08:00 Pulse 60 09/06/24 11:17 Resp 18 09/06/24 11:17 BP 137/70 09/06/24 11:17 Pulse Ox 97 09/06/24 11:17 FiO2 Intake & Output 09/05/24 09/06/24 09/06/24 18:59 06:59 18:59 Intake Total 1320 340 440 Output Total 200 Balance 1320 140 440 Weight 78.5 kg 78.8 kg Intake: Oral 1320 340 440 Output: Urine 200 Other: Voiding Method Toilet Toilet Toilet # Voids 1 1 1 # Bowel Movements 1 1 - Labs CBC & Chem 7: 09/06/24 05:54 09/06/24 05:54 Labs: Abnormal Lab Results - Last 24 Hours (Table) 09/06/24 09/06/24 09/06/24 Range/Units 00:22 05:54 05:54 WBC 15.5 H (3.8-10.6) k/uL RBC 3.32 L (3.80-5.40) m/uL Hgb 9.2 L (11.4-16.0) gm/dL Hct 28.9 L (34.0-46.0) % RDW 20.0 H (11.5-15.5) % Neutrophils # 12.6 H (1.3-7.7) k/uL Sodium 135 L (137-145) mmol/L Chloride 110 H (98-107) mmol/L Carbon Dioxide 16 L (22-30) mmol/L BUN 22 H (7-17) mg/dL Creatinine 1.39 H (0.52-1.04) mg/dL Glucose 108 H (74-99) mg/dL Calcium 8.1 L (8.4-10.2) mg/dL Total Bilirubin 2.3 H (0.2-1.3) mg/dL AST 60 H (14-36) U/L ALT 78 H (4-34) U/L Alkaline Phosphatase 838 H (38-126) U/L Total Protein 5.6 L (6.3-8.2) g/dL Albumin 2.7 L (3.5-5.0) g/dL Urine Appearance Cloudy H (Clear) Urine Blood Moderate H (Negative) Ur Leukocyte Esterase Large H (Negative) Urine WBC 50 H (0-5) /hpf Urine WBC Clumps Occasional H (None) /hpf Ur Squamous Epith Cells 5 H (0-4) /hpf Amorphous Sediment Occasional H (None) /hpf Urine Bacteria Few H (None) /hpf Microbiology - Last 24 Hours (Table) 09/03/24 23:24 Blood Culture - Preliminary Blood
--- NOTE | 2024-09-06 13:36 | P.PN ---
Subjective Progress Note Date: 09/06/24 SURGICAL PROGRESS NOTE CHIEF COMPLAINT: Back pain HISTORY OF PRESENT ILLNESS: Surgical service following in regards to seroma. Patient denies any abdominal pain. Denies any drainage from incision site. Denies any nausea or vomiting. Patient had a low-grade temp of 100.8 last night. WBC is up from 14.6-15.5 elevated LFTs and total bilirubin 2.3. LFTs trending down. Denies any right upper quadrant abdominal pain. Medicine service has ordered an abdominal ultrasound. PHYSICAL EXAM: VITAL SIGNS: Reviewed. GENERAL: Well-developed in no acute distress. ABDOMEN: Soft. Nondistended. Nontender. Midline incision clean dry and intact NEUROLOGIC: Alert and oriented. Cranial nerves II through XII grossly intact. ASSESSMENT: 1. Postoperative abdominal wall seroma 2. History of open repair incisional hernia at [facility] in the beginning of August 3. History of colon cancer with left colectomy PLAN: -Agree with IR service consult for drain placement for abdominal wall seroma -Continue antibiotics -Patient to follow-up with her surgeon at her follow-up appointment Physician Pin Inserter Regulator note has been reviewed by physician. Signing provider agrees with the documented findings, assessment, and plan of care. I have personally seen and examined the patient, reviewed the [employer] /PAs history, exam and MDM and agree with the assessment and plan as written. Based on total visit time, I have performed more than 50% of the visit. As above: Patient with abdominal wall seroma containing some air bubbles. Patient had fevers on presentation. Reasonable to proceed with drainage to rule out infected seroma/hematoma. Await cultures. Objective - Vital Signs Vital signs: Vital Signs Temp 97.5 F L 09/06/24 08:00 Pulse 60 09/06/24 11:17 Resp 18 09/06/24 11:17 BP 137/70 09/06/24 11:17 Pulse Ox 97 09/06/24 11:17 FiO2 Intake & Output 09/05/24 09/06/24 09/06/24 18:59 06:59 18:59 Intake Total 1320 340 440 Output Total 200 Balance 1320 140 440 Weight 78.5 kg 78.8 kg Intake: Oral 1320 340 440 Output: Urine 200 Other: Voiding Method Toilet Toilet Toilet # Voids 1 1 1 # Bowel Movements 1 1 - Labs CBC & Chem 7: 09/08/24 06:20 09/08/24 06:20 Labs: Abnormal Lab Results - Last 24 Hours (Table) 09/06/24 09/06/24 09/06/24 Range/Units 00:22 05:54 05:54 WBC 15.5 H (3.8-10.6) k/uL RBC 3.32 L (3.80-5.40) m/uL Hgb 9.2 L (11.4-16.0) gm/dL Hct 28.9 L (34.0-46.0) % RDW 20.0 H (11.5-15.5) % Neutrophils # 12.6 H (1.3-7.7) k/uL Sodium 135 L (137-145) mmol/L Chloride 110 H (98-107) mmol/L Carbon Dioxide 16 L (22-30) mmol/L BUN 22 H (7-17) mg/dL Creatinine 1.39 H (0.52-1.04) mg/dL Glucose 108 H (74-99) mg/dL Calcium 8.1 L (8.4-10.2) mg/dL Total Bilirubin 2.3 H (0.2-1.3) mg/dL AST 60 H (14-36) U/L ALT 78 H (4-34) U/L Alkaline Phosphatase 838 H (38-126) U/L Total Protein 5.6 L (6.3-8.2) g/dL Albumin 2.7 L (3.5-5.0) g/dL Urine Appearance Cloudy H (Clear) Urine Blood Moderate H (Negative) Ur Leukocyte Esterase Large H (Negative) Urine WBC 50 H (0-5) /hpf Urine WBC Clumps Occasional H (None) /hpf Ur Squamous Epith Cells 5 H (0-4) /hpf Amorphous Sediment Occasional H (None) /hpf Urine Bacteria Few H (None) /hpf Microbiology - Last 24 Hours (Table) 09/03/24 23:24 Blood Culture - Preliminary Blood
--- NOTE | 2024-09-06 14:07 | P.PN ---
Subjective Progress Note Date: 09/06/24 Principal diagnosis: Reason for follow-up is fever leukocytosis question of abdominal wall seroma/infected seroma Patient is a 64-year-old female with a past medical history significant for colon cancer uterine cancer in this patient who recently did have a open repair of the incisional hernia at the [facility] patient was just discharged from hospital after a week stay and presented back to the hospital concerning or pain to the mid/upper back, patient did have a fever elevated white count CT did show evidence of large anterior abdominal fluid collection with air prompting this consultation. On today's evaluation that is 09/06/2024, the patient continues to be afebrile, the patient is on room air and breathing comfortably, the Pt denies having any chest pain or cough, the patient denies having any abdominal pain no vomiting or any diarrhea. Patient white count is 15.5, creatinine is 1.39 blood culture currently pending Objective - Vital Signs Vital signs: Vital Signs Temp 97.5 F L 09/06/24 08:00 Pulse 60 09/06/24 11:17 Resp 18 09/06/24 11:17 BP 137/70 09/06/24 11:17 Pulse Ox 97 09/06/24 11:17 FiO2 Intake & Output 09/05/24 09/06/24 09/06/24 18:59 06:59 18:59 Intake Total 1320 340 440 Output Total 200 Balance 1320 140 440 Weight 78.5 kg 78.8 kg Intake: Oral 1320 340 440 Output: Urine 200 Other: Voiding Method Toilet Toilet Toilet # Voids 1 1 1 # Bowel Movements 1 1 - Exam Elderly female up in the room without distress No tachypnea or accessory muscle respiration Unlabored breathing Abdominal incision is currently dressed - Labs CBC & Chem 7: 09/06/24 05:54 09/06/24 05:54 Labs: Abnormal Lab Results - Last 24 Hours (Table) 09/06/24 09/06/24 09/06/24 Range/Units 00:22 05:54 05:54 WBC 15.5 H (3.8-10.6) k/uL RBC 3.32 L (3.80-5.40) m/uL Hgb 9.2 L (11.4-16.0) gm/dL Hct 28.9 L (34.0-46.0) % RDW 20.0 H (11.5-15.5) % Neutrophils # 12.6 H (1.3-7.7) k/uL Sodium 135 L (137-145) mmol/L Chloride 110 H (98-107) mmol/L Carbon Dioxide 16 L (22-30) mmol/L BUN 22 H (7-17) mg/dL Creatinine 1.39 H (0.52-1.04) mg/dL Glucose 108 H (74-99) mg/dL Calcium 8.1 L (8.4-10.2) mg/dL Total Bilirubin 2.3 H (0.2-1.3) mg/dL AST 60 H (14-36) U/L ALT 78 H (4-34) U/L Alkaline Phosphatase 838 H (38-126) U/L Total Protein 5.6 L (6.3-8.2) g/dL Albumin 2.7 L (3.5-5.0) g/dL Urine Appearance Cloudy H (Clear) Urine Blood Moderate H (Negative) Ur Leukocyte Esterase Large H (Negative) Urine WBC 50 H (0-5) /hpf Urine WBC Clumps Occasional H (None) /hpf Ur Squamous Epith Cells 5 H (0-4) /hpf Amorphous Sediment Occasional H (None) /hpf Urine Bacteria Few H (None) /hpf Microbiology - Last 24 Hours (Table) 09/03/24 23:24 Blood Culture - Preliminary Blood Assessment and Plan (1) Fever Current Visit: Yes Status: Acute Code(s): R50.9 - FEVER, UNSPECIFIED SNOMED Code(s): 961157785 (2) Leukocytosis Current Visit: Yes Status: Acute Code(s): D72.829 - ELEVATED WHITE BLOOD CELL COUNT, UNSPECIFIED SNOMED Code(s): 285223163 (3) Abdominal wall seroma Current Visit: Yes Status: Acute Code(s): S30.1XXA - CONTUSION OF ABDOMINAL WALL, INITIAL ENCOUNTER SNOMED Code(s): 358692652 Plan: 1patient who recently did have a abdominal incisional hernia repair just got di scharged from [facility] now presented to hospital mostly with the pain to the upper back below the shoulder blade in this patient who did have a thoracic CT which did shows evidence of fluid collection to the anterior abdominal wall with some air did have low-grade fever elevated white count with concern for possible seroma/infected seroma however no evidence of any cellulitis or tenderness on examination 2-patient benefit from CT-guided aspiration of this fluid which should be sent for Gram stain and culture, this has been discussed with admitting team IR has been consulted 3-patient to continue with cefepime Flagyl and vancomycin while waiting for the workup to be completed Dictation was produced using [employer] dictation software. please excuse any grammatical, word or spelling errors. Time with Patient: Less than 30
--- NOTE | 2024-09-06 14:39 | P.PN ---
Subjective Progress Note Date: 09/06/24 HISTORY OF PRESENT ILLNESS: This is a 64-year-old female with a past medical history significant for colon cancer with metastasis to the liver, recent hiatal hernia repair, and CAD with recent stenting. Patient follows in the office with Dr. Justice. We have been asked to see the patient in consultation for elevated troponins. Patient examined at the bedside. Patient was recently hospitalized due to ventricular tachycardia and non-STEMI. She underwent cardiac catheterization with Dr. Justice on 08/30/2024 with stenting to the mid left circumflex. Patient was also found to have first obtuse marginal branch chronically occluded with retrograde filling. The patient was discharged home on triple therapy with aspirin, Brilinta, and Eliquis. Patient was to discontinue her aspirin after 1 week. The patient was discharged home on . She presented back to the hospital with a chief complaint of back pain. She states the pain was in the middle of her back. She denied having any chest pain or pressure. Denied having any shortness of breath. The patient was found to have mildly elevated troponins and was started on IV heparin. Her Eliquis was placed on hold. DIAGNOSTICS: - EKG reveals sinus mechanism with left bundle branch block - Chest xray bibasilar infiltrates likely subsegmental atelectasis - Laboratory data: WBC 19.8. Repeat 15.8. Hemoglobin 10.5. Platelet count 344. Sodium 136. Potassium 4.0. BUN 26. Creatinine 1.0. AST 175. ALT 112. Alkaline phosphatase 1136. Troponin 0.160. 0.142. 0.148. proBNP 883. - Current home cardiac medications include Brilinta 90 mg twice a day, metoprolol tartrate 25 mg twice a day, losartan 50 mg twice a day, Lipitor 80 mg daily, aspirin 81 mg daily, Eliquis 5 mg twice a day, and amiodarone 200 mg daily - Most recent echocardiogram obtained on 08/29/2024 ejection fraction 55 to 60%, moderate pulmonary hypertension, trace MR, trace TR - Cardiac catheterization history: 08/30/2024 with stenting to the mid left circumflex. Patient was also found to have first obtuse marginal branch chronically occluded with retrograde filling. 09/05/2024 Patient states that she is doing very poorly today because of back pain. She states she came in with back pain but this went away and now this morning it came back and it is in the lower thoracic and lumbar areas. She denies having any chest pain or chest pressure. She states her breathing is okay. No fever or chills. Her appetite is okay. Her family members of told her that she looks jaundice. Blood pressure 117/61, heart rate 69, pulse ox 96% on room air. Repe at blood work reveals WBC 14.6, hemoglobin 10.1. BUN 24 creatinine 1.31, sodium 136, potassium 3.7, CO2 18. Liver function tests are elevated with total bilirubin 2.9, AST 94, ALT 104, alkaline phosphatase 948. Liver function test are improved from yesterday. Magnesium 1.7. IV heparin was discontinued yesterday. Eliquis is on hold until general surgery evaluates patient amiodarone was also discontinued due to transaminitis 09/06/2024 Patient denies any chest pain or shortness of breath. IR is on consult for aspiration of the abdominal wall fluid collection. Blood pressure 132/77, heart rate 74, pulse ox 97% on room air. Repeat blood work reveals hemoglobin 9.2. Sodium 135, potassium 3.5, BUN 22 creatinine 1.39. Liver function test remain elevated. Blood culture no growth at 48 hours. PHYSICAL EXAM: VITAL SIGNS: Reviewed. GENERAL: Well-developed in no acute distress. HEENT: Head is normocephalic. Pupils are equal, round. Sclerae anicteric. Mucous membranes of the mouth are moist. Neck supple. No JVD or thyromegaly LUNGS: Respirations even and unlabored. Lungs essentially clear to auscultation bilaterally. HEART: Regular rate and rhythm. S1 and S2 heard. + systolic murmur ABDOMEN: Soft. Nondistended. Nontender. EXTREMITIES: Normal range of motion. No clubbing or cyanosis. Peripheral pulses intact. No lower extremity edema NEUROLOGIC: Awake and alert. Oriented x 3. ASSESSMENT: Back pain Abdominal fluid collection, s/p recent hiatal hernia repair, at [facility] in [place] Coronary artery disease with recent stenting of the circumflex, 08/30/2024 Recent hospitalization for non-STEMI and ventricular tachycardia Elevated troponins, trending down from recent non-STEMI, no evidence of acute coronary syndrome Acute kidney injury Transaminitis Moderate pulmonary hypertension Colon cancer with metastasis to the liver, previously on chemotherapy which has been placed on hold due to recent hiatal hernia surgery History of DVT, on Eliquis outpatient Anemia PLAN: An acute coronary event has been ruled out Discontinue aspirin Continue patient on Plavix, and Eliquis. Discontinue amiodarone due to transaminitis If necessary, anticoagulation may be held for procedures. Further recommendations pending patient course Nurse practitioner note has been reviewed by physician. Signing provider agrees with the documented findings, assessment, and plan of care documented by DIRECTOR OF FINANCIAL REPORTING as a scribe. Objective - Vital Signs Vital signs: Vital Signs Temp 97.5 F L 09/06/24 08:00 Pulse 60 09/06/24 11:17 Resp 18 09/06/24 11:17 BP 137/70 09/06/24 11:17 Pulse Ox 97 09/06/24 11:17 FiO2 Intake & Output 09/05/24 09/06/24 09/06/24 18:59 06:59 18:59 Intake Total 1320 340 440 Output Total 200 Balance 1320 140 440 Weight 78.5 kg 78.8 kg Intake: Oral 1320 340 440 Output: Urine 200 Other: Voiding Method Toilet Toilet Toilet # Voids 1 1 1 # Bowel Movements 1 1 - Labs CBC & Chem 7: 09/06/24 05:54 09/06/24 05:54 Labs: Abnormal Lab Results - Last 24 Hours (Table) 09/06/24 09/06/24 09/06/24 Range/Units 00:22 05:54 05:54 WBC 15.5 H (3.8-10.6) k/uL RBC 3.32 L (3.80-5.40) m/uL Hgb 9.2 L (11.4-16.0) gm/dL Hct 28.9 L (34.0-46.0) % RDW 20.0 H (11.5-15.5) % Neutrophils # 12.6 H (1.3-7.7) k/uL Sodium 135 L (137-145) mmol/L Chloride 110 H (98-107) mmol/L Carbon Dioxide 16 L (22-30) mmol/L BUN 22 H (7-17) mg/dL Creatinine 1.39 H (0.52-1.04) mg/dL Glucose 108 H (74-99) mg/dL Calcium 8.1 L (8.4-10.2) mg/dL Total Bilirubin 2.3 H (0.2-1.3) mg/dL AST 60 H (14-36) U/L ALT 78 H (4-34) U/L Alkaline Phosphatase 838 H (38-126) U/L Total Protein 5.6 L (6.3-8.2) g/dL Albumin 2.7 L (3.5-5.0) g/dL Urine Appearance Cloudy H (Clear) Urine Blood Moderate H (Negative) Ur Leukocyte Esterase Large H (Negative) Urine WBC 50 H (0-5) /hpf Urine WBC Clumps Occasional H (None) /hpf Ur Squamous Epith Cells 5 H (0-4) /hpf Amorphous Sediment Occasional H (None) /hpf Urine Bacteria Few H (None) /hpf Microbiology - Last 24 Hours (Table) 09/03/24 23:24 Blood Culture - Preliminary Blood
--- NOTE | 2024-09-06 15:01 | US ---
EXAMINATION TYPE: US gallbladder DATE OF EXAM: 09/06/2024 COMPARISON: CTA thoracoabdominal pelvis 09/03/2024 CLINICAL INDICATION: Female, 64 years old with history of transaminitis obstructive; patient had elias ia surgery limited due to bowel gas and body habitus. TECHNIQUE: Grayscale and color Doppler imaging of the right upper quadrant was performed. FINDINGS: EXAM MEASUREMENTS: Liver Length: 21.8 cm Gallbladder Wall: Not well visualized. CBD: .8 cm Right Kidney: 14.1 x 4.3 x 4.3 cm STAFF RADIATION THERAPIST NOTES: Pancreas: Obscured by bowel gas Liver: Heterogenous enlarged hyperechoic area seen measuring 5.7 x 5.7 x 5.9 cm. Gallbladder: Limited due to bowel gas question hypoechoic area seen within. Evidence for sonographic Jeter's sign: no CBD: Dilated Right Kidney: No hydronephrosis or masses seen Pancreas is obscured by overlying bowel gas. There is a heterogenous hyperechoic region identified wi thin the left hepatic lobe measuring up to 5.9 cm. This appears to correspond to a heterogenous hypod ense region within the liver on prior CTA. Limited visualization of the gallbladder due to overlying bowel gas with hyperechoic areas seen within the gallbladder. Reported negative sonographic Jeter si gn. Mildly prominent common bile duct. Right kidney demonstrates no hydronephrosis, mass, or nephroli thiasis. IMPRESSION: Limited examination due to overlying bowel gas. 1. Heterogenous left hepatic lobe lesion corresponding to known metastatic disease. 2. Poor visualization of gallbladder due to overlying bowel gas with hyperechoic material identified within the gallbladder which may represent tumefactive sludge versus other etiologies. 3. Mildly prominent common bile duct measuring up to 0.8 mm. Consider further evaluation with MRCP. [facility], , 09/06/2024 2:59 PM
--- NOTE | 2024-09-06 15:32 | US ---
EXAMINATION TYPE: US guided soft tissue drainage with pigtail catheter placement. DATE OF EXAM: 09/06/2024 2:23 PM COMPARISON: CT CLINICAL INDICATION:Female, 64 years old with history of seroma; , [facility] TECHNIQUE: Ultrasound guided fluid aspiration with pigtail catheter placement. PROCEDURE: Informed consent was obtained. Risks including bleeding, infection, damage to surrounding structures, and the potential need for further procedures as well as benefits were explained. All patient questi ons were answered. Initial ultrasound images were taken which showed safest access to fluid collection located at the . Anterior subcutaneous tissues. The patient was prepped and draped. Under sterile technique with 1% lidocaine local anesthesia a 5-Mauritanian one-step needle/catheter was inserted under ultrasound guidance with aspiration of 10 cc of serous dark red fluid. Trocar technique was then utilized to in sert an 8.5 Mauritanian pigtail catheter. The patient tolerated the procedure well without complication. T he patient was transferred to recovery in stable condition. IMPRESSION: Successful ultrasound fluid aspiration with pigtail catheter placement. . [facility], Workstation: [id number], 09/06/2024 3:30 PM
[2024-09-06 21:13] LABS: Appearance,BF Bloody (Clear)
[2024-09-06] MEDS: hydrALAZINE HCL 25 MG TAB PO STA ×2 (21:19→21:21)
[2024-09-07 07:04] LABS: African American GFR (CKD) 31 (>60 ml/min/1.73 sqM); Non-African American GFR(CKD) 27 (>60 ml/min/1.73 sqM)
--- NOTE | 2024-09-07 10:53 | P.PN ---
Subjective Progress Note Date: 09/07/24 SURGICAL PROGRESS NOTE CHIEF COMPLAINT: Back pain HISTORY OF PRESENT ILLNESS: Surgical service following in regards to seroma. Patient is status post IR drain placement for seroma with 125 mL output yest erday. Patient currently with minimal output in bag serosanguineous in color. Patient denies abdominal pain. Denies any nausea or vomiting. Afebrile. CBC for today pending PHYSICAL EXAM: VITAL SIGNS: Reviewed. GENERAL: Well-developed in no acute distress. ABDOMEN: Soft. Nondistended. Nontender. Midline incision clean dry and intact. Drain in place with serosanguineous output. NEUROLOGIC: Alert and oriented. Cranial nerves II through XII grossly intact. ASSESSMENT: 1. Postoperative abdominal wall seroma 2. History of open repair incisional hernia at [facility] in the beginning of August 3. History of colon cancer with left colectomy PLAN: -Continue IR drain at discharge -Antibiotics per infectious disease -Patient can be discharged from surgical standpoint when medically cleared Physician Load Dropper note has been reviewed by physician. Signing provider agrees with the documented findings, assessment, and plan of care. Objective - Vital Signs Vital signs: Vital Signs Temp 97.8 F 09/07/24 08:00 Pulse 73 09/07/24 08:00 Resp 18 09/07/24 08:00 BP 159/72 09/07/24 08:00 Pulse Ox 95 09/07/24 08:00 FiO2 Intake & Output 09/06/24 09/07/24 09/07/24 18:59 06:59 18:59 Intake Total 1130 380 Output Total 125 0 0 Balance 1005 0 380 Weight 80.7 kg Intake: Oral 1130 380 Output: Drainage 125 0 0 Right Abdomen 125 0 0 Other: Voiding Method Toilet Toilet Toilet # Voids 2 1 # Bowel Movements 1 - Labs CBC & Chem 7: 09/06/24 05:54 09/07/24 06:23 Labs: Abnormal Lab Results - Last 24 Hours (Table) 09/06/24 09/07/24 Range/Units 14:00 06:23 Creatinine 1.93 H (0.52-1.04) mg/dL Fluid Appearance Bloody A (Clear) Microbiology - Last 24 Hours (Table) 09/06/24 14:00 Gram Stain - Preliminary Aspirate Body Fluid Culture - Preliminary 09/03/24 23:24 Blood Culture - Preliminary Blood
[2024-09-07 11:20] LABS: Anisocytosis Slight; Basophils # (A) 0.1 k/uL (0-0.2); Basophils % (A) 0 %; Eosinophils # (A) 0.2 k/uL (0-0.7); Eosinophils % (A) 1 %; HCT 29.9 % (34.0-46.0); HGB 9.5 gm/dL (11.4-16.0); Hypochromasia Slight; Lymphocytes # (A) 1.2 k/uL (1.0-4.8); Lymphocytes % (A) 9 %; MCH 27.5 pg (25.0-35.0); MCHC 31.6 g/dL (31.0-37.0); MCV 87.2 fL (80.0-100.0); Mean Platelet Volume 8.4; Microcytosis Slight; Monocytes # (A) 0.8 k/uL (0-1.0); Monocytes % (A) 5 %; Neutrophils # (A) 11.6 k/uL (1.3-7.7); Neutrophils % (A) 83 %; Platelet Count 348 k/uL (150-450); RBC 3.43 m/uL (3.80-5.40); RDW 19.8 % (11.5-15.5); WBC 13.9 k/uL (3.8-10.6)
--- NOTE | 2024-09-07 11:21 | P.PN ---
Subjective Progress Note Date: 09/07/24 Principal diagnosis: 64-year-old female with colon cancer (stage IV, s/p colectomy 08/2021, following with Dr. Morales, currently on ), DVT (on ), and hiatal hernia repair on 08/25/2024 and a history of uterine cancer and ascites. Is presenting to the emergency department complaining of mid back pain. Recent heart cath with stent placement on 08/30/2024 -Chest x-ray done in the ER showed bibasilar infiltrates likely subsegmental atelectasis -Thoracic aorta CT showed ascending thoracic aortic aneurysm of 4.1 cm; no descending thoracic or abdominal aortic aneurysm evident; no aortic dissection evident; large fluidlike collection with some air in the anterior abdominal wall has enlarged following surgery when comparing to the presurgical image. -EKG done in the ER showed heart rate of 66, evidence of a left bundle branch block; QTc 438; negative for Sgarbossa's criteria. -Second EKG done in the ER showed heart rate of 78, evidence of a left bundle branch block; QTc 425; negative for Sgarbossa's criteria On arrival, patient was febrile, rest of the vital signs within normal limits. White count elevated to 19.8, creatinine 1.06, troponin peaked at 0.16. Patient started on heparin drip and IV Zosyn and vancomycin. General surgery and cardi ology was consulted. 09/07: IR had placed a drain on 09/06, not draining much overnight. awaiting c ulture results Objective - Vital Signs Vital signs: Vital Signs Temp 97.8 F 09/07/24 08:00 Pulse 73 09/07/24 08:00 Resp 18 09/07/24 08:00 BP 159/72 09/07/24 08:00 Pulse Ox 95 09/07/24 08:00 FiO2 Intake & Output 09/06/24 09/07/24 09/07/24 18:59 06:59 18:59 Intake Total 1130 380 Output Total 125 0 0 Balance 1005 0 380 Weight 80.7 kg Intake: Oral 1130 380 Output: Drainage 125 0 0 Right Abdomen 125 0 0 Other: Voiding Method Toilet Toilet Toilet # Voids 2 1 # Bowel Movements 1 - Exam General: Nontoxic, no distress, appears at stated age, female, pleasant Derm: Warm, dry, right chest port site clean, dry, intact Head: Atraumatic, normocephalic, symmetric Eyes: EOMI, no lid lag, anicteric sclera Mouth: No lip lesion, mucus membranes moist Cardiovascular: S1S2 reg, no murmur Lungs: CTA bilateral, no rhonchi, no rales, no accessory muscle use Ext: No gross muscle atrophy, no edema, no contractures Neuro: no focal neuro deficits Psych: Alert, oriented, appropriate affect abd: soft, nontedner, drain around rlq - Labs CBC & Chem 7: 09/06/24 05:54 09/07/24 06:23 Labs: Abnormal Lab Results - Last 24 Hours (Table) 09/06/24 09/07/24 Range/Units 14:00 06:23 Creatinine 1.93 H (0.52-1.04) mg/dL Fluid Appearance Bloody A (Clear) Microbiology - Last 24 Hours (Table) 09/06/24 14:00 Gram Stain - Preliminary Aspirate Body Fluid Culture - Preliminary 09/03/24 23:24 Blood Culture - Preliminary Blood Assessment and Plan (1) Abdominal wall seroma Narrative/Plan: Sepsis likely secondary to surgical site infection Recent abdominal hernia surgery at [facility] -General Surgery consulted - no surgical intervention -Continue pharmacy to dose IV vancomycin, IV cefepime/and IV flagyl therapy. -f/u on IR culture results. -Continue vancomycin 1500 mg daily, monitor renal function -To prevent renal toxicity, will switch IV Zosyn to cefepime and Flagyl -Prelim culture showing no growth to date -appreciate ID and surgery recommendations -monitor drain output. if continues not to drain that much fluid, may consider d/ciong NSTEMI, likely type II CAD status post recent stent placement to circumflex on 08/30/2024 -continue asa 81 mg daily and metoprool tartrate brilinta was d/zarina on 09/06 as per cardiology -amiodarone d/zarina given transaminitis Acute kidney injury Acute transaminitis, possible ischemic hepatitis -renal function has worsened. Possibly prerenal ettiology vs. less likely vancomycin -hold acei, amidoarone has been d/zarina. 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
--- NOTE | 2024-09-07 12:41 | P.PN ---
Subjective Progress Note Date: 09/07/24 HISTORY OF PRESENT ILLNESS: This is a 64-year-old female with a past medical history significant for colon cancer with metastasis to the liver, recent hiatal hernia repair, and CAD with recent stenting. Patient follows in the office with Dr. Justice. We have been asked to see the patient in consultation for elevated troponins. Patient examined at the bedside. Patient was recently hospitalized due to ventricular tachycardia and non-STEMI. She underwent cardiac catheterization with Dr. Justice on 08/30/2024 with stenting to the mid left circumflex. Patient was also found to have first obtuse marginal branch chronically occluded with retrograde filling. The patient was discharged home on triple therapy with aspirin, Brilinta, and Eliquis. Patient was to discontinue her aspirin after 1 week. The patient was discharged home on . She presented back to the hospital with a chief complaint of back pain. She states the pain was in the middle of her back. She denied having any chest pain or pressure. Denied having any shortness of breath. The patient was found to have mildly elevated troponins and was started on IV heparin. Her Eliquis was placed on hold. DIAGNOSTICS: - EKG reveals sinus mechanism with left bundle branch block - Chest xray bibasilar infiltrates likely subsegmental atelectasis - Laboratory data: WBC 19.8. Repeat 15.8. Hemoglobin 10.5. Platelet count 344. Sodium 136. Potassium 4.0. BUN 26. Creatinine 1.0. AST 175. ALT 112. Alkaline phosphatase 1136. Troponin 0.160. 0.142. 0.148. proBNP 883. - Current home cardiac medications include Brilinta 90 mg twice a day, metoprolol tartrate 25 mg twice a day, losartan 50 mg twice a day, Lipitor 80 mg daily, aspirin 81 mg daily, Eliquis 5 mg twice a day, and amiodarone 200 mg daily - Most recent echocardiogram obtained on 08/29/2024 ejection fraction 55 to 60%, moderate pulmonary hypertension, trace MR, trace TR - Cardiac catheterization history: 08/30/2024 with stenting to the mid left circumflex. Patient was also found to have first obtuse marginal branch chronically occluded with retrograde filling. 09/05/2024 Patient states that she is doing very poorly today because of back pain. She states she came in with back pain but this went away and now this morning it came back and it is in the lower thoracic and lumbar areas. She denies having any chest pain or chest pressure. She states her breathing is okay. No fever or chills. Her appetite is okay. Her family members of told her that she looks jaundice. Blood pressure 117/61, heart rate 69, pulse ox 96% on room air. Repe at blood work reveals WBC 14.6, hemoglobin 10.1. BUN 24 creatinine 1.31, sodium 136, potassium 3.7, CO2 18. Liver function tests are elevated with total bilirubin 2.9, AST 94, ALT 104, alkaline phosphatase 948. Liver function test are improved from yesterday. Magnesium 1.7. IV heparin was discontinued yesterday. Eliquis is on hold until general surgery evaluates patient amiodarone was also discontinued due to transaminitis 09/06/2024 Patient denies any chest pain or shortness of breath. IR is on consult for aspiration of the abdominal wall fluid collection. Blood pressure 132/77, heart rate 74, pulse ox 97% on room air. Repeat blood work reveals hemoglobin 9.2. Sodium 135, potassium 3.5, BUN 22 creatinine 1.39. Liver function test remain elevated. Blood culture no growth at 48 hours. 09/07/24 Patient is seen and examined. She states a drain was placed yesterday which was done by IR and has had minimal drainage. She denies having any chest pain, shortness of breath. Blood pressure 127/72, heart rate 58, pulse ox 97% on room air. Repeat blood work reveals hemoglobin 9.5, WBC 13.9 which is improving. Creatinine is worse today at 1.93. PHYSICAL EXAM: VITAL SIGNS: Reviewed. GENERAL: Well-developed in no acute distress. HEENT: Head is normocephalic. Pupils are equal, round. Sclerae anicteric. Mucous membranes of the mouth are moist. Neck supple. No JVD or thyromegaly LUNGS: Respirations even and unlabored. Lungs essentially clear to auscultation bilaterally. HEART: Regular rate and rhythm. S1 and S2 heard. + systolic murmur ABDOMEN: Soft. Nondistended. Nontender. EXTREMITIES: Normal range of motion. No clubbing or cyanosis. Peripheral pulses intact. No lower extremity edema NEUROLOGIC: Awake and alert. Oriented x 3. ASSESSMENT: Back pain Abdominal fluid collection, s/p recent hiatal hernia repair, at [facility] in [place] Coronary artery disease with recent stenting of the circumflex, 08/30/2024 Recent hospitalization for non-STEMI and ventricular tachycardia Elevated troponins, trending down from recent non-STEMI, no evidence of acute coronary syndrome Acute kidney injury Transaminitis Moderate pulmonary hypertension Colon cancer with metastasis to the liver, previously on chemotherapy which has been placed on hold due to recent hiatal hernia surgery History of DVT, on Eliquis outpatient Anemia Acute kidney injury PLAN: An acute coronary event has been ruled out Continue patient on Plavix, and Eliquis. Discontinue amiodarone due to transaminitis If necessary, anticoagulation may be held for procedures. Cardiology will sign off this case and follow on an as-needed basis. Please reconsult for any new concerns. Patient may follow-up in the office in one to [address] Justice. Nurse practitioner note has been reviewed by physician. Signing provider agrees with the documented findings, assessment, and plan of care documented by RAIL SIGNAL WORKER as a scribe. Objective - Vital Signs Vital signs: Vital Signs Temp 97.8 F 09/07/24 11:25 Pulse 58 L 09/07/24 11:25 Resp 16 09/07/24 11:25 BP 127/72 09/07/24 11:25 Pulse Ox 97 09/07/24 11:25 FiO2 Intake & Output 09/06/24 09/07/24 09/07/24 18:59 06:59 18:59 Intake Total 1130 380 Output Total 125 0 0 Balance 1005 0 380 Weight 80.7 kg Intake: Oral 1130 380 Output: Drainage 125 0 0 Right Abdomen 125 0 0 Other: Voiding Method Toilet Toilet Toilet # Voids 2 1 # Bowel Movements 1 - Labs CBC & Chem 7: 09/07/24 11:04 09/07/24 06:23 Labs: Abnormal Lab Results - Last 24 Hours (Table) 09/06/24 09/07/24 09/07/24 Range/Units 14:00 06:23 11:04 WBC 13.9 H (3.8-10.6) k/uL RBC 3.43 L (3.80-5.40) m/uL Hgb 9.5 L (11.4-16.0) gm/dL Hct 29.9 L (34.0-46.0) % RDW 19.8 H (11.5-15.5) % Neutrophils # 11.6 H (1.3-7.7) k/uL Creatinine 1.93 H (0.52-1.04) mg/dL Fluid Appearance Bloody A (Clear) Microbiology - Last 24 Hours (Table) 09/06/24 14:00 Gram Stain - Preliminary Aspirate Body Fluid Culture - Preliminary 09/03/24 23:24 Blood Culture - Preliminary Blood
[2024-09-07] MEDS: CEFEPIME 1 GM in SODIUM CHLORIDE 0.9% 50 ML IVPB SCH (21:01)
[2024-09-07] MEDS: APIXABAN 5 MG TAB PO SCH (21:01)
[2024-09-08 06:51] LABS: Anisocytosis Slight; Basophils # (A) 0.1 k/uL (0-0.2); Basophils % (A) 0 %; Eosinophils # (A) 0.3 k/uL (0-0.7); Eosinophils % (A) 2 %; HCT 27.9 % (34.0-46.0); HGB 8.8 gm/dL (11.4-16.0); Hypochromasia Moderate; Lymphocytes # (A) 1.4 k/uL (1.0-4.8); Lymphocytes % (A) 10 %; MCH 27.4 pg (25.0-35.0); MCHC 31.6 g/dL (31.0-37.0); MCV 86.7 fL (80.0-100.0); Mean Platelet Volume 7.6; Microcytosis Slight; Monocytes # (A) 0.9 k/uL (0-1.0); Monocytes % (A) 7 %; Neutrophils # (A) 11.2 k/uL (1.3-7.7); Neutrophils % (A) 80 %; Platelet Count 366 k/uL (150-450); RBC 3.22 m/uL (3.80-5.40); RDW 19.8 % (11.5-15.5); WBC 14.1 k/uL (3.8-10.6)
[2024-09-08 07:30] LABS: Chloride 113 mmol/L (98-107); Glucose 100 mg/dL (74-99); Potassium 3.5 mmol/L (3.5-5.1); Sodium 135 mmol/L (137-145)
[2024-09-08 07:31] LABS: ALT 42 U/L (4-34); AST 30 U/L (14-36); African American GFR (CKD) 22 (>60 ml/min/1.73 sqM); Albumin 2.6 g/dL (3.5-5.0); Alkaline Phosphatase 816 U/L (38-126); Anion Gap 8 mmol/L; Blood Urea Nitrogen 33 mg/dL (7-17); Calcium 8.2 mg/dL (8.4-10.2); Carbon Dioxide 14 mmol/L (22-30); Non-African American GFR(CKD) 19 (>60 ml/min/1.73 sqM); Total Bilirubin 1.8 mg/dL (0.2-1.3); Total Protein 5.4 g/dL (6.3-8.2)
[2024-09-08 07:36] LABS: Vancomycin,Random 18.3 ug/mL
--- NOTE | 2024-09-08 08:49 | P.PN ---
Subjective Progress Note Date: 09/07/24 Principal diagnosis: Reason for follow-up is fever leukocytosis question of abdominal wall seroma/infected seroma Patient is a 64-year-old female with a past medical history significant for colon cancer uterine cancer in this patient who recently did have a open repair of the incisional hernia at the [facility] patient was just discharged from hospital after a week stay and presented back to the hospital concerning or pain to the mid/upper back, patient did have a fever elevated white count CT did show evidence of large anterior abdominal fluid collection with air prompting this consultation. On today's evaluation that is 09/07/2024, patient has been afebrile, patient is breathing comfortably and is currently on room air, patient denies having any significant cough no chest pain, patient denies nausea vomiting or diarrhea abdominal pain has decreased in intensity. Patient white count is 13.9 the abdominal fluid aspirate was mostly bloody culture is pending Objective - Vital Signs Vital signs: Vital Signs Temp 97.8 F 09/07/24 08:00 Pulse 73 09/07/24 08:00 Resp 18 09/07/24 08:00 BP 159/72 09/07/24 08:00 Pulse Ox 95 09/07/24 08:00 FiO2 Intake & Output 09/06/24 09/07/24 09/07/24 18:59 06:59 18:59 Intake Total 1130 380 Output Total 125 0 0 Balance 1005 0 380 Weight 80.7 kg Intake: Oral 1130 380 Output: Drainage 125 0 0 Right Abdomen 125 0 0 Other: Voiding Method Toilet Toilet Toilet # Voids 2 1 # Bowel Movements 1 - Exam Elderly female up in the room without distress No tachypnea or accessory muscle respiration Unlabored breathing Abdominal incision is currently dressed - Labs CBC & Chem 7: 09/08/24 06:20 09/08/24 06:20 Labs: Abnormal Lab Results - Last 24 Hours (Table) 09/06/24 09/07/24 Range/Units 14:00 06:23 Creatinine 1.93 H (0.52-1.04) mg/dL Fluid Appearance Bloody A (Clear) Microbiology - Last 24 Hours (Table) 09/06/24 14:00 Gram Stain - Preliminary Aspirate Body Fluid Culture - Preliminary 09/03/24 23:24 Blood Culture - Preliminary Blood Assessment and Plan (1) Fever Current Visit: Yes Status: Acute Code(s): R50.9 - FEVER, UNSPECIFIED SNOMED Code(s): 423333047 (2) Leukocytosis Current Visit: Yes Status: Acute Code(s): D72.829 - ELEVATED WHITE BLOOD CELL COUNT, UNSPECIFIED SNOMED Code(s): 344942645 (3) Abdominal wall seroma Current Visit: Yes Status: Acute Code(s): S30.1XXA - CONTUSION OF ABDOMINAL WALL, INITIAL ENCOUNTER SNOMED Code(s): 139906743 Plan: 1patient who recently did have a abdominal incisional hernia repair just got discharged from [facility] now presented to hospital mostly with the pain to the upper back below the shoulder blade in this patient who did have a thoracic CT which did shows evidence of fluid collection to the anterior abdominal wall with some air did have low-grade fever elevated white count with concern for possible seroma/infected seroma however no evidence of any cellulitis or tenderness on examination 2-patient is status post IR drainage of the fluid collection which is mostly bloody possibly indicating hematoma rather than infection await cultures 3-patient to continue with cefepime Flagyl and vancomycin however if the cu lture remains to be negative we will be able to narrow down antibiotics Dictation was produced using [employer] dictation software. please excuse any grammatical, word or spelling errors. Time with Patient: Less than 30
--- NOTE | 2024-09-08 11:20 | US ---
EXAMINATION TYPE: US kidneys/renal and bladder DATE OF EXAM: 09/08/2024 COMPARISON: NONE CLINICAL INDICATION: Female, 64 years old with history of BENJAMIN; Hannah, patient in recliner, had recent surgery mid abdomen and bowel gas limits exam TECHNIQUE: Grayscale imaging of the bilateral kidneys and urinary bladder: FINDINGS: EXAM MEASUREMENTS: Right Kidney: 13.1 x 4.0 x 5.4 cm Left Kidney: 8.6 x 4.5 x 5.7 cm Right Kidney: No hydronephrosis or masses seen Left Kidney: limited views of mid pole only, hypoechoic lesion seen sagittally = 1.6 x 1.8cm, has bee n seen on a CT Bladder: not seen There is no evidence for hydronephrosis at this point in time. No nephrolithiasis is seen. No luciano s are identified. The 1.6 x 1.8 cm hypoechoic lesion in the mid left kidney corresponds to a cyst seen on CT abdomen an d pelvis dated 07/15/2024 IMPRESSION: No solid renal mass, renal calcification, hydronephrosis or perinephric fluid collection. [facility], , 09/08/2024 11:18 AM
--- NOTE | 2024-09-08 12:32 | P.PN ---
Subjective Progress Note Date: 09/08/24 SURGICAL PROGRESS NOTE CHIEF COMPLAINT: Back pain HISTORY OF PRESENT ILLNESS: Surgical service following in regards to seroma. Patient is status post IR drain placement for seroma. Patient with 30 mL output from drain through the night. Afebrile. WBC is up from 13.9-14.1 Hgb 9.5 to 8.8 creatinine is up to 2.57. Vancomycin was discontinued. Nephrology on consult. Patient denies any abdominal pain. PHYSICAL EXAM: VITAL SIGNS: Reviewed. GENERAL: Well-developed in no acute distress. ABDOMEN: Soft. Nondistended. Nontender. Midline incision clean dry and intact. Drain in place with sanguinous output. NEUROLOGIC: Alert and oriented. Cranial nerves II through XII grossly intact. ASSESSMENT: 1. Postoperative abdominal wall seroma 2. History of open repair incisional hernia at [facility] in the beginning of August 3. History of colon cancer with left colectomy PLAN: -Continue IR drain at discharge -Antibiotics per infectious disease Physician Rubber Goods Repairer note has been reviewed by physician. Signing provider agrees with the documented findings, assessment, and plan of care. I have personally seen and examined the patient, reviewed the KNOCKDOWN WORKER /PAs history, exam and MDM and agree with the assessment and plan as written. Based on total visit time, I have performed more than 50% of the visit. As above: Patient doing well today. Denies pain. Cultures still negative. D rain bloody in appearance. Still having some output although not significant volume. Will reassess tomorrow for possible removal. Objective - Vital Signs Vital signs: Vital Signs Temp 98.0 F 09/08/24 07:08 Pulse 70 09/08/24 07:08 Resp 17 09/08/24 07:08 BP 149/78 09/08/24 07:08 Pulse Ox 96 09/08/24 07:08 FiO2 Intake & Output 09/07/24 09/08/24 09/08/24 18:59 06:59 18:59 Intake Total 1270 40 118 Output Total 0 30 Balance 1270 10 118 Weight 82 kg Intake: IV 40 Invasive Line 1 20 Invasive Line 2 20 Oral 1270 118 Output: Drainage 0 30 Right Abdomen 0 30 Other: Voiding Method Toilet Toilet # Voids 2 1 1 # Bowel Movements 1 - Labs CBC & Chem 7: 09/08/24 06:20 09/08/24 06:20 Labs: Abnormal Lab Results - Last 24 Hours (Table) 09/08/24 09/08/24 Range/Units 06:20 06:20 WBC 14.1 H (3.8-10.6) k/uL RBC 3.22 L (3.80-5.40) m/uL Hgb 8.8 L (11.4-16.0) gm/dL Hct 27.9 L (34.0-46.0) % RDW 19.8 H (11.5-15.5) % Neutrophils # 11.2 H (1.3-7.7) k/uL Sodium 135 L (137-145) mmol/L Chloride 113 H (98-107) mmol/L Carbon Dioxide 14 L (22-30) mmol/L BUN 33 H (7-17) mg/dL Creatinine 2.57 H (0.52-1.04) mg/dL Glucose 100 H (74-99) mg/dL Calcium 8.2 L (8.4-10.2) mg/dL Total Bilirubin 1.8 H (0.2-1.3) mg/dL ALT 42 H (4-34) U/L Alkaline Phosphatase 816 H (38-126) U/L Total Protein 5.4 L (6.3-8.2) g/dL Albumin 2.6 L (3.5-5.0) g/dL Microbiology - Last 24 Hours (Table) 09/06/24 14:00 Gram Stain - Preliminary Aspirate Body Fluid Culture - Preliminary 09/03/24 23:24 Blood Culture - Preliminary Blood
--- NOTE | 2024-09-08 12:39 | P.PN ---
Subjective Progress Note Date: 09/08/24 Principal diagnosis: Reason for follow-up is fever leukocytosis question of abdominal wall seroma/infected seroma Patient is a 64-year-old female with a past medical history significant for colon cancer uterine cancer in this patient who recently did have a open repair of the incisional hernia at the [facility] patient was just discharged from hospital after a week stay and presented back to the hospital concerning or pain to the mid/upper back, patient did have a fever elevated white count CT did show evidence of large anterior abdominal fluid collection with air prompting this consultation. On today's evaluation that is 09/08/2024, Patient is afebrile this morning patient denies having any chest pain shortness of breath or cough, the patient is currently on room air, patient abdominal pain has decreased in intensity denies any nausea vomiting or diarrhea. Patient white count is 14.1 creatinine is 2.57 Objective - Vital Signs Vital signs: Vital Signs Temp 98.0 F 09/08/24 07:08 Pulse 70 09/08/24 07:08 Resp 17 09/08/24 07:08 BP 149/78 09/08/24 07:08 Pulse Ox 96 09/08/24 07:08 FiO2 Intake & Output 09/07/24 09/08/24 09/08/24 18:59 06:59 18:59 Intake Total 1270 40 118 Output Total 0 30 Balance 1270 10 118 Weight 82 kg Intake: IV 40 Invasive Line 1 20 Invasive Line 2 20 Oral 1270 118 Output: Drainage 0 30 Right Abdomen 0 30 Other: Voiding Method Toilet Toilet # Voids 2 1 1 # Bowel Movements 1 - Exam Elderly female up in the room without distress No tachypnea or accessory muscle respiration Unlabored breathing Abdominal incision is currently dressed - Labs CBC & Chem 7: 09/08/24 06:20 09/08/24 06:20 Labs: Abnormal Lab Results - Last 24 Hours (Table) 09/08/24 09/08/24 Range/Units 06:20 06:20 WBC 14.1 H (3.8-10.6) k/uL RBC 3.22 L (3.80-5.40) m/uL Hgb 8.8 L (11.4-16.0) gm/dL Hct 27.9 L (34.0-46.0) % RDW 19.8 H (11.5-15.5) % Neutrophils # 11.2 H (1.3-7.7) k/uL Sodium 135 L (137-145) mmol/L Chloride 113 H (98-107) mmol/L Carbon Dioxide 14 L (22-30) mmol/L BUN 33 H (7-17) mg/dL Creatinine 2.57 H (0.52-1.04) mg/dL Glucose 100 H (74-99) mg/dL Calcium 8.2 L (8.4-10.2) mg/dL Total Bilirubin 1.8 H (0.2-1.3) mg/dL ALT 42 H (4-34) U/L Alkaline Phosphatase 816 H (38-126) U/L Total Protein 5.4 L (6.3-8.2) g/dL Albumin 2.6 L (3.5-5.0) g/dL Microbiology - Last 24 Hours (Table) 09/06/24 14:00 Gram Stain - Preliminary Aspirate Body Fluid Culture - Preliminary 09/03/24 23:24 Blood Culture - Preliminary Blood Assessment and Plan (1) Fever Current Visit: Yes Status: Acute Code(s): R50.9 - FEVER, UNSPECIFIED SNOMED Code(s): 359660591 (2) Leukocytosis Current Visit: Yes Status: Acute Code(s): D72.829 - ELEVATED WHITE BLOOD CELL COUNT, UNSPECIFIED SNOMED Code(s): 731997485 (3) Abdominal wall seroma Current Visit: Yes Status: Acute Code(s): S30.1XXA - CONTUSION OF ABDOMINAL WALL, INITIAL ENCOUNTER SNOMED Code(s): 086086249 Plan: 1patient who recently did have a abdominal incisional hernia repair just got discharged from [facility] now presented to hospital mostly with the pain to the upper back below the shoulder blade in this patient who did have a thoracic CT which did shows evidence of fluid collection to the anterior abdominal wall with some air did have low-grade fever elevated white count with concern for possible seroma/infected seroma however no evidence of any cellulitis or tenderness on examination 2-patient is status post IR drainage of the fluid collection which is mostly bloody possibly indicating hematoma rather than infection await cultures 3-patient vancomycin was discontinued as the fluid is looking mostly bloody less likely infected hematoma will go ahead and discontinue cefepime and Flagyl and monitor the patient closely off antibiotic Dictation was produced using [employer] dictation software. please excuse any grammatical, word or spelling errors. Time with Patient: Less than 30
--- NOTE | 2024-09-08 13:03 | P.NPCON ---
History of Present Illness - Reason for Consult acute renal failure - History of Present Illness Reason for consultation: Acute kidney injury History of present is: Patient is a 64-year-old female seen in renal consultation for acute kidney injury. Patient's creatinine was as low as 1.0 this admission dated September 04, 2024 and has been gradually worsening over the last few days. It is up to 2.57 today. Patient came to the hospital due to back discomfort. Patient states she underwent a hernia surgery at [facility] on September 04, 2024. She states she was admitted for a day and subsequently discharged. She came to the hospital after she developed back pain. She was noted to have an abdominal wall collection and had a drain placed by interventional radiology. She is currently not on any IV fluids. UA shows no protein. Patient does have history of colon cancer with metastatic disease to the liver. Patient was receiving Keytruda but is currently on hold. She does have history of moderate pulmonary hypertension. Denies history of diabetes. Denies use of nonsteroidals. Denies family history of renal disease. She does have history of coronary artery disease and had a cardiac stent placed about a week ago. Denies chest pain or shortness of breath. No gross hematuria or dysuria. Vital signs are stable. General: No acute distress. HEENT: Head exam is unremarkable. LUNGS: No audible rhonchi or wheezes. HEART: Rate and Rhythm are regular. ABDOMEN: Nontender. Drain noted. EXTREMITITES: No edema. Past Medical History Past Medical History: Cancer, Deep Vein Thrombosis (DVT), Musculoskeletal Disorder Additional Past Medical History / Comment(s): kidney infection, colon cancer, dvt in leg, ascites, uterine CA History of Any Multi-Drug Resistant Organisms: None Reported Past Surgical History: Bowel Resection, Heart Catheterization With Stent, Hernia Repair, Orthopedic Surgery Additional Past Surgical History / Comment(s): allison wrist surgery 2009, colon resection 09/08, multi paracentesis Past Anesthesia/Blood Transfusion Reactions: No Reported Reaction Date of Last Stent Placement:: 09/11 Past Psychological History: No Psychological Hx Reported Smoking Status: Former smoker Past Alcohol Use History: Rare Additional Past Alcohol Use History / Comment(s): occaisional Past Drug Use History: None Reported - Past Family History Father Family Medical History: Cancer Mother Family Medical History: Vascular Disorder Medications and Allergies Home Medications Medication Instructions Recorded Confirmed Type Calcium Carbonate [Calcium] 600 mg PO DAILY 12/05/21 09/04/24 History Cyanocobalamin [Vitamin B-12] 1,000 mcg PO DAILY 12/05/21 09/04/24 History Apixaban [Eliquis] 5 mg PO DIRECTED 08/31/22 09/04/24 History Ascorbic Acid [Vitamin C] 1,000 mg PO DAILY 11/13/22 09/04/24 History Zinc Gluconate [Zinc] 50 mg PO DAILY 11/13/22 09/04/24 History Acetaminophen 500 - 1,000 mg PO TID PRN MDD 08/27/24 09/04/24 History 3,000mg Cyclobenzaprine [Flexeril] 5 mg PO TID PRN 08/27/24 09/04/24 History Ferrous Sulfate [Feosol] 325 mg PO DAILY 08/27/24 09/04/24 History Magnesium Oxide [Mag-Ox] 400 mg PO DAILY 08/27/24 09/04/24 History traMADol HCL 50 mg PO Q6H PRN 08/27/24 09/04/24 History Amiodarone [Cordarone] 200 mg PO DAILY 30 Days #30 tab 09/01/24 09/04/24 Rx Aspirin 81 mg PO DAILY 5 Days #5 tab 09/01/24 09/04/24 Rx Atorvastatin [Lipitor] 80 mg PO DAILY 30 Days #30 tab 09/01/24 09/04/24 Rx Losartan [Cozaar] 50 mg PO BID 30 Days #60 tab 09/01/24 09/04/24 Rx Metoprolol Tartrate [Lopressor] 25 mg PO BID 30 Days #60 tab 09/01/24 09/04/24 Rx Ticagrelor [Brilinta] 90 mg PO BID 30 Days #60 tab 09/01/24 09/04/24 Rx Allergies Allergy/AdvReac Type Severity Reaction Status Date / Time No Known Allergies Allergy Verified 09/04/24 11:36 Physical Exam Vitals: Vital Signs Temp Pulse Resp BP Pulse Ox 09/08/24 07:08 98.0 F 70 17 149/78 96 09/08/24 04:40 97.8 F 65 16 149/68 95 09/07/24 23:09 98.4 F 67 15 151/73 96 09/07/24 19:50 98.5 F 78 17 155/78 97 09/07/24 15:40 64 16 145/68 95 Intake and Output 09/07/24 09/08/24 09/08/24 22:59 06:59 14:59 Intake Total 710 20 118 Output Total 0 30 Balance 710 -10 118 Intake: IV 20 20 Invasive Line 1 10 10 Invasive Line 2 10 10 Oral 690 118 Output: Drainage 0 30 Right Abdomen 0 30 Other: Voiding Method Toilet Toilet # Voids 2 1 1 # Bowel Movements 1 Weight 82 kg Results - Lab Results Most recent lab results Calcium 8.2 mg/dL (8.4-10.2) L 09/08/24 06:20 Magnesium 1.7 mg/dL (1.6-2.3) 09/05/24 06:37 09/08/24 06:20 09/08/24 06:20 Assessment and Plan Plan: Assessment: 1. Acute kidney injury secondary to ATN secondary to severe sepsis. Creatinine 1.0 on admission and is 2.57 today. No proteinuria noted on UA. Kidney ultrasound showed atrophic left kidney with no evidence of hydronephrosis. 2. Abdominal wall seroma status post drain placed by IR. On antibiotics. ID following. 3. Benign hypertension. Stable. 4. Colon cancer status post left colectomy with metastatic disease to the liver. 5. Metabolic acidosis secondary to acute kidney injury. 6. Coronary disease with stent placement August 30, 2024. 7. Status post recent hernia surgery at [facility]. Plan: Start bicarb drip at 75 cc an hour. Avoid nephrotoxins. Check bladder scan to rule out urinary retention. Avoid nephrotoxins. Continue to monitor renal function and urine output. Thank you for the consultation. I will continue to follow the patient with you during her hospital stay.
[2024-09-08] MEDS: POTASSIUM CHLORIDE ER 20 MEQ TAB.ER PO STA (13:27)
[2024-09-08] MEDS: SODIUM BICARB 8.4% 50 ML SYR (1 MEQ/ML) IV STA (13:27)
[2024-09-08] MEDS: DEXTROSE 5% IN WATER 1,000 ML with SODIUM BICARB (1 MEQ/ML) 150 ML IV SCH (13:33)
--- NOTE | 2024-09-08 17:17 | P.PN ---
Subjective Progress Note Date: 09/08/24 64-year-old female with colon cancer (stage IV, s/p colectomy 08/2021, following with Dr. Morales, currently on hol), DVT (on Eliquis), and hiatal hernia repair on 08/25/2024 and a history of uterine cancer and ascites. Is presenting to the emergency department complaining of mid back pain. Recent heart cath with stent placement on 08/30/2024 -Chest x-ray done in the ER showed bibasilar infiltrates likely subsegmental atelectasis -Thoracic aorta CT showed ascending thoracic aortic aneurysm of 4.1 cm; no descending thoracic or abdominal aortic aneurysm evident; no aortic dissection evident; large fluidlike collection with some air in the anterior abdominal wall has enlarged following surgery when comparing to the presurgical image. -EKG done in the ER showed heart rate of 66, evidence of a left bundle branch block; QTc 438; negative for Sgarbossa's criteria. -Second EKG done in the ER showed heart rate of 78, evidence of a left bundle branch block; QTc 425; negative for Sgarbossa's criteria On arrival, patient was febrile, rest of the vital signs within normal limits. White count elevated to 19.8, creatinine 1.06, troponin peaked at 0.16. Patient started on heparin drip and IV Zosyn and vancomycin. General surgery and cardiology was consulted. Patient seen and examined at bedside. No acute events overnight. Underwent abdominal wall fluid collection for culture. Cultures growing no PMN or organisms. Antibiotics discontinued. Vitals Signs Reviewed. General: Nontoxic, no distress, appears at stated age Derm: Warm, dry, right chest port site clean, dry, intact Head: Atraumatic, normocephalic, symmetric Eyes: EOMI, no lid lag, anicteric sclera Mouth: No lip lesion, mucus membranes moist Cardiovascular: S1S2 reg, no murmur Lungs: CTA bilateral, no rhonchi, no rales, no accessory muscle use Ext: No gross muscle atrophy, no edema, no contractures Neuro: no focal neuro deficits Psych: Alert, oriented, appropriate affect Data Reviewed Today: Pertinent Labs: WBC 14.1, RBC 3.22, Hg 8.8, Hct 27.9, Na 135, Cl 113, bicarb 14, BUN 33, Cr 2.57, glu 100, Ca 8.2, T. Bili 1.8, AST 42, ALT 816, alb 2.6. Imaging: No new imaging Assessment and Plan: Sepsis likely secondary to surgical site infection Recent abdominal hernia surgery at [facility] -General Surgery consulted - no surgical intervention -Antibiotics discontinued, monitor WBC count and fever profile. -Cultures negative so far -ID on board NSTEMI, likely type II CAD status post recent stent placement on 08/30/2024 -Aspirin 81 mg, Brilinta 90 twice daily, metoprolol 25 twice daily -Cardiology consulted, discontinue amiodarone due to transaminitis. Acute kidney injury -Renal US no hydro, hypoechoic lesion mid L kidney (seen since 06/2024). -Bladder scan x 1 -1 amp sodium bicarb ordered -hold ACEi -Nephrology consult, start bicarb drip at 75 cc/hr. 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 Keytruda Hypertension DVT ppx: Eliquis Code status: Full code Objective - Vital Signs Vital signs: Vital Signs Temp 98.2 F 09/08/24 16:00 Pulse 67 09/08/24 16:00 Resp 17 09/08/24 16:00 BP 163/84 09/08/24 16:00 Pulse Ox 98 09/08/24 16:00 FiO2 Intake & Output 09/07/24 09/08/24 09/08/24 18:59 06:59 18:59 Intake Total 1270 40 276 Output Total 0 30 0 Balance 1270 10 276 Weight 82 kg Intake: IV 40 40 Invasive Line 1 20 20 Invasive Line 2 20 20 Oral 1270 236 Output: Drainage 0 30 0 Right Abdomen 0 30 0 Other: Voiding Method Toilet Toilet Toilet # Voids 2 1 1 # Bowel Movements 1 - Labs CBC & Chem 7: 09/08/24 06:20 09/08/24 06:20 Labs: Abnormal Lab Results - Last 24 Hours (Table) 09/08/24 09/08/24 Range/Units 06:20 06:20 WBC 14.1 H (3.8-10.6) k/uL RBC 3.22 L (3.80-5.40) m/uL Hgb 8.8 L (11.4-16.0) gm/dL Hct 27.9 L (34.0-46.0) % RDW 19.8 H (11.5-15.5) % Neutrophils # 11.2 H (1.3-7.7) k/uL Sodium 135 L (137-145) mmol/L Chloride 113 H (98-107) mmol/L Carbon Dioxide 14 L (22-30) mmol/L BUN 33 H (7-17) mg/dL Creatinine 2.57 H (0.52-1.04) mg/dL Glucose 100 H (74-99) mg/dL Calcium 8.2 L (8.4-10.2) mg/dL Total Bilirubin 1.8 H (0.2-1.3) mg/dL ALT 42 H (4-34) U/L Alkaline Phosphatase 816 H (38-126) U/L Total Protein 5.4 L (6.3-8.2) g/dL Albumin 2.6 L (3.5-5.0) g/dL Microbiology - Last 24 Hours (Table) 09/06/24 14:00 Gram Stain - Preliminary Aspirate Body Fluid Culture - Preliminary 09/03/24 23:24 Blood Culture - Preliminary Blood
[2024-09-09 08:58] LABS: African American GFR (CKD) 19 (>60 ml/min/1.73 sqM); Anion Gap 13 mmol/L; Blood Urea Nitrogen 36 mg/dL (7-17); Calcium 8.5 mg/dL (8.4-10.2); Carbon Dioxide 15 mmol/L (22-30); Chloride 108 mmol/L (98-107); Glucose 159 mg/dL (74-99); Magnesium 1.8 mg/dL (1.6-2.3); Non-African American GFR(CKD) 17 (>60 ml/min/1.73 sqM); Potassium 3.8 mmol/L (3.5-5.1); Sodium 136 mmol/L (137-145)
--- NOTE | 2024-09-09 10:38 | P.PN ---
Subjective Patient is seen in follow-up for acute kidney injury. Creatinine 2.85 today. Oral intake fair. Has been voiding. Bladder scans have been negative. Vital signs are stable. General: No acute distress. HEENT: Head exam is unremarkable. LUNGS: No audible rhonchi or wheezes. HEART: Rate and Rhythm are regular. ABDOMEN: Nontender. EXTREMITITES: No edema. Objective - Vital Signs Vital signs: Vital Signs Temp 98.1 F 09/09/24 07:54 Pulse 73 09/09/24 07:54 Resp 18 09/09/24 07:54 BP 143/69 09/09/24 07:54 Pulse Ox 97 09/09/24 08:51 FiO2 Intake & Output 09/08/24 09/09/24 09/09/24 18:59 06:59 18:59 Intake Total 394 540 Output Total 0 0 0 Balance 394 540 0 Intake: IV 40 Invasive Line 1 20 Invasive Line 2 20 Oral 354 540 Output: Drainage 0 0 0 Right Abdomen 0 0 0 Other: Voiding Method Toilet Toilet # Voids 1 2 # Bowel Movements 1 1 - Labs CBC & Chem 7: 09/08/24 06:20 09/09/24 07:58 Labs: Abnormal Lab Results - Last 24 Hours (Table) 09/09/24 Range/Units 07:58 Sodium 136 L (137-145) mmol/L Chloride 108 H (98-107) mmol/L Carbon Dioxide 15 L (22-30) mmol/L BUN 36 H (7-17) mg/dL Creatinine 2.85 H (0.52-1.04) mg/dL Glucose 159 H (74-99) mg/dL Microbiology - Last 24 Hours (Table) 09/06/24 14:00 Gram Stain - Preliminary Aspirate Body Fluid Culture - Preliminary Assessment and Plan Plan: Assessment: 1. Acute kidney injury secondary to ATN secondary to severe sepsis. Creatinine 1.0 on admission and is 2.85 today. No proteinuria noted on UA. Kidney ultrasound showed atrophic left kidney with no evidence of hydronephrosis. 2. Abdominal wall seroma status post drain placed by IR. s/p antibiotics. ID following. 3. Benign hypertension. Stable. 4. Colon cancer status post left colectomy with metastatic disease to the liver. 5. Metabolic acidosis secondary to acute kidney injury. 6. Coronary disease with stent placement August 30, 2024. 7. Status post recent hernia surgery at [facility] [place]. Plan: Maintain bicarb drip. Avoid nephrotoxins. Bladder scans have been negative. Avoid nephrotoxins. Continue to monitor renal function and urine output. Check urine eosinophils.
--- NOTE | 2024-09-09 11:11 | P.PN ---
Subjective Progress Note Date: 09/09/24 SURGICAL PROGRESS NOTE CHIEF COMPLAINT: Back pain HISTORY OF PRESENT ILLNESS: Surgical service following in regards to seroma. Patient is status post IR drain placement for seroma. Output from drain is bloody. No new output from drain recorded. Afebrile. CBC pending. Cultures pending, but negative so far. She is currently being monitored off of antibiotics. She denies any abdominal pain. PHYSICAL EXAM: VITAL SIGNS: Reviewed. GENERAL: Well-developed in no acute distress. ABDOMEN: Soft. Nondistended. Nontender. Midline incision clean dry and intact. Drain in place with sanguinous output. NEUROLOGIC: Alert and oriented. Cranial nerves II through XII grossly intact. ASSESSMENT: 1. Postoperative abdominal wall seroma 2. History of open repair incisional hernia at [facility] in the beginning of August 3. History of colon cancer with left colectomy PLAN: -Continue IR drain for now -Further recommendations forthcoming per surgeon regarding drain Physician Mobile Phlebotomist note has been reviewed by physician. Signing provider agrees with the documented findings, assessment, and plan of care. 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 Based on total visit time, I have performed more than 50% of the visit. As above: Patient still with sanguinous output although amount is quite small. Anticipate drain removal prior to discharge. Objective - Vital Signs Vital signs: Vital Signs Temp 98.1 F 09/09/24 07:54 Pulse 73 09/09/24 07:54 Resp 18 09/09/24 07:54 BP 143/69 09/09/24 07:54 Pulse Ox 97 09/09/24 08:51 FiO2 Intake & Output 09/08/24 09/09/24 09/09/24 18:59 06:59 18:59 Intake Total 394 540 Output Total 0 0 0 Balance 394 540 0 Intake: IV 40 Invasive Line 1 20 Invasive Line 2 20 Oral 354 540 Output: Drainage 0 0 0 Right Abdomen 0 0 0 Other: Voiding Method Toilet Toilet # Voids 1 2 # Bowel Movements 1 1 - Labs CBC & Chem 7: 09/09/24 11:27 09/09/24 07:58 Labs: Abnormal Lab Results - Last 24 Hours (Table) 09/09/24 Range/Units 07:58 Sodium 136 L (137-145) mmol/L Chloride 108 H (98-107) mmol/L Carbon Dioxide 15 L (22-30) mmol/L BUN 36 H (7-17) mg/dL Creatinine 2.85 H (0.52-1.04) mg/dL Glucose 159 H (74-99) mg/dL Microbiology - Last 24 Hours (Table) 09/06/24 14:00 Gram Stain - Preliminary Aspirate Body Fluid Culture - Preliminary
[2024-09-09] MEDS: SODIUM BICARB 8.4% 50 ML SYR (1 MEQ/ML) IV STA (11:14)
[2024-09-09 11:40] LABS: Anisocytosis Slight; Basophils # (A) 0.1 k/uL (0-0.2); Basophils % (A) 1 %; Eosinophils # (A) 0.4 k/uL (0-0.7); Eosinophils % (A) 3 %; HCT 30.4 % (34.0-46.0); HGB 9.4 gm/dL (11.4-16.0); Hypochromasia Slight; Lymphocytes # (A) 1.3 k/uL (1.0-4.8); Lymphocytes % (A) 9 %; MCH 26.8 pg (25.0-35.0); MCHC 31.1 g/dL (31.0-37.0); MCV 86.1 fL (80.0-100.0); Mean Platelet Volume 7.7; Microcytosis Slight; Monocytes # (A) 0.8 k/uL (0-1.0); Monocytes % (A) 6 %; Neutrophils # (A) 11.5 k/uL (1.3-7.7); Neutrophils % (A) 80 %; Platelet Count 428 k/uL (150-450); RBC 3.53 m/uL (3.80-5.40); RDW 19.7 % (11.5-15.5); WBC 14.3 k/uL (3.8-10.6)
--- NOTE | 2024-09-09 12:42 | P.PN ---
Subjective Progress Note Date: 09/09/24 Principal diagnosis: Reason for follow-up is fever leukocytosis question of abdominal wall seroma/infected seroma Patient is a 64-year-old female with a past medical history significant for colon cancer uterine cancer in this patient who recently did have a open repair of the incisional hernia at the [facility] patient was just discharged from hospital after a week stay and presented back to the hospital concerning or pain to the mid/upper back, patient did have a fever elevated white count CT did show evidence of large anterior abdominal fluid collection with air prompting this consultation. On today's evaluation that is 09/09/2024,the patient denies any fever or any chills, patient is breathing comfortably on room air, the patient denies chest pain shortness of breath and no significant cough, patient denies having any abdominal pain no nausea vomiting overall drainage in the drainage catheter has decreased. Patient white count is 14.3 hemoglobin is 9.4 culture have been negative so far Objective - Vital Signs Vital signs: Vital Signs Temp 98.1 F 09/09/24 07:54 Pulse 73 09/09/24 07:54 Resp 18 09/09/24 07:54 BP 143/69 09/09/24 07:54 Pulse Ox 97 09/09/24 08:51 FiO2 Intake & Output 09/08/24 09/09/24 09/09/24 18:59 06:59 18:59 Intake Total 394 540 Output Total 0 0 0 Balance 394 540 0 Intake: IV 40 Invasive Line 1 20 Invasive Line 2 20 Oral 354 540 Output: Drainage 0 0 0 Right Abdomen 0 0 0 Other: Voiding Method Toilet Toilet # Voids 1 2 # Bowel Movements 1 1 - Exam Elderly female up in the room without distress No tachypnea or accessory muscle respiration Unlabored breathing Abdominal incision is currently dressed - Labs CBC & Chem 7: 09/09/24 11:27 09/09/24 07:58 Labs: Abnormal Lab Results - Last 24 Hours (Table) 09/09/24 Range/Units 07:58 Sodium 136 L (137-145) mmol/L Chloride 108 H (98-107) mmol/L Carbon Dioxide 15 L (22-30) mmol/L BUN 36 H (7-17) mg/dL Creatinine 2.85 H (0.52-1.04) mg/dL Glucose 159 H (74-99) mg/dL Microbiology - Last 24 Hours (Table) 09/06/24 14:00 Gram Stain - Preliminary Aspirate Body Fluid Culture - Preliminary Assessment and Plan (1) Fever Current Visit: Yes Status: Acute Code(s): R50.9 - FEVER, UNSPECIFIED SNOMED Code(s): 444254082 (2) Leukocytosis Current Visit: Yes Status: Acute Code(s): D72.829 - ELEVATED WHITE BLOOD CELL COUNT, UNSPECIFIED SNOMED Code(s): 444213960 (3) Abdominal wall seroma Current Visit: Yes Status: Acute Code(s): S30.1XXA - CONTUSION OF ABDOMINAL WALL, INITIAL ENCOUNTER SNOMED Code(s): 007769046 Plan: 1patient who recently did have a abdominal incisional hernia repair just got discharged from [facility] now presented to hospital mostly with the pain to the upper back below the shoulder blade in this patient who did have a thoracic CT which did shows evidence of fluid collection to the anterior abdominal wall with some air did have low-grade fever elevated white count with concern for possible seroma/infected seroma however no evidence of any cellulitis or tenderness on examination 2-patient is status post IR drainage of the fluid collection which is mostly bloody possibly indicating hematoma rather than infection, culture have been negative so far 3-patient remains to be afebrile white count slightly elevated culture has been negative so far we will monitor the patient closely off antibiotic Dictation was produced using [employer] dictation software. please excuse any grammatical, word or spelling errors. Time with Patient: Less than 30
--- NOTE | 2024-09-09 15:24 | P.PN ---
Subjective Progress Note Date: 09/09/24 64-year-old female with colon cancer (stage IV, s/p colectomy 08/2021, following with Dr. Morales, currently on hol), DVT (on Eliquis), and hiatal hernia repair on 08/25/2024 and a history of uterine cancer and ascites. Is presenting to the emergency department complaining of mid back pain. Recent heart cath with stent placement on 08/30/2024 -Chest x-ray done in the ER showed bibasilar infiltrates likely subsegmental atelectasis -Thoracic aorta CT showed ascending thoracic aortic aneurysm of 4.1 cm; no descending thoracic or abdominal aortic aneurysm evident; no aortic dissection evident; large fluidlike collection with some air in the anterior abdominal wall has enlarged following surgery when comparing to the presurgical image. -EKG done in the ER showed heart rate of 66, evidence of a left bundle branch block; QTc 438; negative for Sgarbossa's criteria. -Second EKG done in the ER showed heart rate of 78, evidence of a left bundle branch block; QTc 425; negative for Sgarbossa's criteria On arrival, patient was febrile, rest of the vital signs within normal limits. White count elevated to 19.8, creatinine 1.06, troponin peaked at 0.16. Patient started on heparin drip and IV Zosyn and vancomycin. General surgery and cardiology was consulted. Patient seen and examined at bedside. No acute events overnight. She reports no complaints today. Underwent abdominal wall fluid collection for culture. Cultures growing no PMN or organisms. Antibiotics discontinued. Vitals Signs Reviewed. General: Nontoxic, no distress, appears at stated age Derm: Warm, dry, right chest port site clean, dry, intact Head: Atraumatic, normocephalic, symmetric Eyes: EOMI, no lid lag, anicteric sclera Mouth: No lip lesion, mucus membranes moist Cardiovascular: S1S2 reg, no murmur Lungs: CTA bilateral, no rhonchi, no rales, no accessory muscle use Ext: No gross muscle atrophy, no edema, no contractures Neuro: no focal neuro deficits Psych: Alert, oriented, appropriate affect Data Reviewed Today: Pertinent Labs: WBC 14.3, RBC 3.53, Hg 9.4, Hct 30.4, Na 136, Cl 108, bicarb 15, BUN 36, Cr 2.85, glu 159. Imaging: No new imaging Assessment and Plan: Acute kidney injury likely due to hypotension possibly related to Vancomycin -Worsening -Renal US no hydro, hypoechoic lesion mid L kidney (seen since 06/2024). -Bladder scan x 1 -1 amp sodium bicarb ordered -hold ACEi -Nephrology consult, bicarb drip at 75 cc/hr. Sepsis likely secondary to surgical site infection Recent abdominal hernia surgery at [facility] -General Surgery consulted - no surgical intervention -Antibiotics discontinued, monitor WBC count and fever profile. -Cultures negative so far -ID on board NSTEMI, likely type II CAD status post recent stent placement on 08/30/2024 -Aspirin 81 mg, Brilinta 90 twice daily, metoprolol 25 twice daily -Cardiology consulted, discontinue amiodarone due to transaminitis. 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 on Keytruda Hypertension DVT ppx: Eliquis Code status: Full code Objective - Vital Signs Vital signs: Vital Signs Temp 98.1 F 09/09/24 12:00 Pulse 79 09/09/24 12:00 Resp 18 09/09/24 12:00 BP 142/71 09/09/24 12:00 Pulse Ox 96 09/09/24 12:00 FiO2 Intake & Output 09/08/24 09/09/24 09/09/24 18:59 06:59 18:59 Intake Total 394 540 Output Total 0 0 0 Balance 394 540 0 Intake: IV 40 Invasive Line 1 20 Invasive Line 2 20 Oral 354 540 Output: Drainage 0 0 0 Right Abdomen 0 0 0 Other: Voiding Method Toilet Toilet # Voids 1 2 # Bowel Movements 1 1 - Labs CBC & Chem 7: 09/09/24 11:27 09/09/24 07:58 Labs: Abnormal Lab Results - Last 24 Hours (Table) 09/09/24 09/09/24 Range/Units 07:58 11:27 WBC 14.3 H (3.8-10.6) k/uL RBC 3.53 L (3.80-5.40) m/uL Hgb 9.4 L (11.4-16.0) gm/dL Hct 30.4 L (34.0-46.0) % RDW 19.7 H (11.5-15.5) % Neutrophils # 11.5 H (1.3-7.7) k/uL Sodium 136 L (137-145) mmol/L Chloride 108 H (98-107) mmol/L Carbon Dioxide 15 L (22-30) mmol/L BUN 36 H (7-17) mg/dL Creatinine 2.85 H (0.52-1.04) mg/dL Glucose 159 H (74-99) mg/dL Microbiology - Last 24 Hours (Table) 09/03/24 23:24 Blood Culture - Final Blood 09/06/24 14:00 Gram Stain - Preliminary Aspirate Body Fluid Culture - Preliminary
[2024-09-10 10:01] LABS: Anisocytosis Slight; HCT 27.8 % (34.0-46.0); HGB 8.6 gm/dL (11.4-16.0); Hypochromasia Marked; MCH 27.8 pg (25.0-35.0); MCHC 31.1 g/dL (31.0-37.0); MCV 89.3 fL (80.0-100.0); Mean Platelet Volume 7.5; Platelet Count 386 k/uL (150-450); RBC 3.11 m/uL (3.80-5.40); RDW 19.8 % (11.5-15.5); WBC 13.5 k/uL (3.8-10.6)
[2024-09-10 10:17] LABS: African American GFR (CKD) 17 (>60 ml/min/1.73 sqM); Anion Gap 10 mmol/L; Blood Urea Nitrogen 38 mg/dL (7-17); Calcium 7.9 mg/dL (8.4-10.2); Carbon Dioxide 19 mmol/L (22-30); Chloride 103 mmol/L (98-107); Glucose 240 mg/dL (74-99); Magnesium 1.7 mg/dL (1.6-2.3); Non-African American GFR(CKD) 14 (>60 ml/min/1.73 sqM); Potassium 3.9 mmol/L (3.5-5.1); Sodium 132 mmol/L (137-145)
--- NOTE | 2024-09-10 10:54 | P.PN ---
Subjective Progress Note Date: 09/10/24 Principal diagnosis: Abdominal wall seroma Patient doing well today. Denies pain. Hoping to go home. Final cultures from abdominal wall seroma/hematoma negative. She is afebrile. Objective - Vital Signs Vital signs: Vital Signs Temp 98.1 F 09/10/24 09:05 Pulse 70 09/10/24 09:05 Resp 14 09/10/24 09:05 BP 154/60 09/10/24 09:05 Pulse Ox 95 09/10/24 09:05 FiO2 Intake & Output 09/09/24 09/10/24 09/10/24 18:59 06:59 18:59 Intake Total 222 Output Total 0 0 Balance 222 0 Weight 82.8 kg Intake: Oral 222 Output: Drainage 0 0 Right Abdomen 0 0 Other: Voiding Method Toilet Toilet # Voids 1 - Exam Abdomen: Soft, nondistended, incision clean and dry, drain removed, two thirds diana removed - Labs CBC & Chem 7: 09/10/24 09:21 09/10/24 09:21 Labs: Abnormal Lab Results - Last 24 Hours (Table) 09/09/24 09/10/24 09/10/24 Range/Units 11:27 09:21 09:21 WBC 14.3 H 13.5 H (3.8-10.6) k/uL RBC 3.53 L 3.11 L (3.80-5.40) m/uL Hgb 9.4 L 8.6 L (11.4-16.0) gm/dL Hct 30.4 L 27.8 L (34.0-46.0) % RDW 19.7 H 19.8 H (11.5-15.5) % Neutrophils # 11.5 H (1.3-7.7) k/uL Sodium 132 L (137-145) mmol/L Carbon Dioxide 19 L (22-30) mmol/L BUN 38 H (7-17) mg/dL Creatinine 3.22 H (0.52-1.04) mg/dL Glucose 240 H (74-99) mg/dL Calcium 7.9 L (8.4-10.2) mg/dL Microbiology - Last 24 Hours (Table) 09/06/24 14:00 Gram Stain - Final Aspirate Body Fluid Culture - Final 09/03/24 23:24 Blood Culture - Final Blood Assessment and Plan (1) Abdominal wall seroma Narrative/Plan: Patient doing well today. Drain removed at this time. If discharged today follow-up with her [facility] surgeon on 09/20. If the patient stays overnight likely will remove the remainder of her diana tomorrow. Current Visit: Yes Status: Acute Code(s): S30.1XXA - CONTUSION OF ABDOMINAL WALL, INITIAL ENCOUNTER SNOMED Code(s): 691970015
--- NOTE | 2024-09-10 12:52 | P.PN ---
Subjective patient is seen for follow-up for acute kidney injury. No significant complaints today. Maintained on IV fluids. No hypotension noted Renal function continues to deteriorate and serum creatinine has increased to 3.2 today. Urine eosinophils was positive. Objective - Vital Signs Vital signs: Vital Signs Temp 98.3 F 09/10/24 11:44 Pulse 55 L 09/10/24 11:44 Resp 14 09/10/24 11:44 BP 137/75 09/10/24 11:44 Pulse Ox 94 L 09/10/24 11:44 FiO2 Intake & Output 09/09/24 09/10/24 09/10/24 18:59 06:59 18:59 Intake Total 222 Output Total 0 0 Balance 222 0 Weight 82.8 kg Intake: Oral 222 Output: Drainage 0 0 Right Abdomen 0 0 Other: Voiding Method Toilet Toilet # Voids 1 3 - Exam patient is awake, comfortable, no acute distress. 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 - Labs CBC & Chem 7: 09/10/24 09:21 09/10/24 09:21 Labs: Abnormal Lab Results - Last 24 Hours (Table) 09/10/24 09/10/24 Range/Units 09:21 09:21 WBC 13.5 H (3.8-10.6) k/uL RBC 3.11 L (3.80-5.40) m/uL Hgb 8.6 L (11.4-16.0) gm/dL Hct 27.8 L (34.0-46.0) % RDW 19.8 H (11.5-15.5) % Sodium 132 L (137-145) mmol/L Carbon Dioxide 19 L (22-30) mmol/L BUN 38 H (7-17) mg/dL Creatinine 3.22 H (0.52-1.04) mg/dL Glucose 240 H (74-99) mg/dL Calcium 7.9 L (8.4-10.2) mg/dL Microbiology - Last 24 Hours (Table) 09/06/24 14:00 Gram Stain - Final Aspirate Body Fluid Culture - Final 09/03/24 23:24 Blood Culture - Final Blood Assessment and Plan Assessment: 1. Acute kidney injury secondary to ATN secondary to severe sepsis. Creatinine 1.0 on admission and is 3.2 today. No proteinuria noted on UA. Urine eos inophols are positive suggesting possible underlying acute interstitial nephritis. Kidney ultrasound showed atrophic left kidney with no evidence of hydronephrosis. 2. Abdominal wall seroma status post drain placed by IR. s/p antibiotics. ID following. 3. Benign hypertension. Stable. 4. Colon cancer status post left colectomy with metastatic disease to the liver. 5. Metabolic acidosis secondary to acute kidney injury. 6. Coronary disease with stent placement August 30, 2024. 7. Status post recent [place] [facility] Plan: add prednisone for possible underlying acute interstitial nephritis. Repeat bladder scan Repeat labs in a.m. Continue to avoid nephrotoxic agents
--- NOTE | 2024-09-10 13:28 | P.PN ---
Subjective Progress Note Date: 09/10/24 64-year-old female with colon cancer (stage IV, s/p colectomy 08/2021, following with Dr. Morales, currently on Keytruda holiday), DVT (on Eliquis), and hiatal hernia repair on 08/25/2024 and a history of uterine cancer and ascites. Is presenting to the emergency department complaining of mid back pain. Recent heart cath with stent placement on 08/30/2024. In the ED she underwent extensive evaluation. BP 149/82, HR 64, RR 16, T 98.2, 97% on RA. CBC, Coag panel, CMP significant for WBC 19.8, APTT 34.8, BUN 28, Cr 1.06, glu 144, AST 88, ALT 48, alk phos 929. Trop 0.16, 0.142, 0.148. SNP 883. Lipase 44. CXR done in the ER showed bibasilar infiltrates likely subsegmental atelectasis. Thoracic aorta CT showed ascending thoracic aortic aneurysm of 4.1 cm; no descending thoracic or abdominal aortic aneurysm evident; no aortic dissection evident; large fluidlike collection with some air in the anterior abdominal wall has enlarged following surgery when comparing to the presurgical image. EKG done in the ER showed heart rate of 66, evidence of a left bundle branch block; QTc 438; negative for Sgar bossa's criteria. Patient started on heparin drip and IV Zosyn and vancomycin. General surgery and cardiology was consulted. Cardiology consulted, amiodarone discontinued due to transaminitis. Surgery consulted, recommended no surgical intervention. Heparin drip switched back to Eliquis. ID consulted due to low grade fevers and leukocytosis, she underwent IR aspiration of seroma. Cultures were negative and antibiotics were discontinued. Noted to have worsening renal function on 09/07 along with worsening metabolic acidosis. Nephrology consulted, Renal US no hydro with hypoechoic lesion mid L kidney (seen since 06/2024), bladder scan negative, started on bicarb infusion. 09/10 Patient seen and examined at bedside. No acute events overnight. She reports no complaints today. CBC and BMP significant for WBC 13.5, RBC 3.11, Hg 8.6, Hct 27.8, Na 132, bicarb 19, BUN 38, Cr 3.22, glu 240, Ca 7.9. Mag 1.7. Maintained on bicarb drip at 75 cc/hr. Urine eosinophils 2%. Vitals Signs Reviewed. General: Nontoxic, no distress, appears at stated age Derm: Warm, dry, right chest port site clean, dry, intact Head: Atraumatic, normocephalic, symmetric Eyes: EOMI, no lid lag, anicteric sclera Mouth: No lip lesion, mucus membranes moist Cardiovascular: S1S2 reg, no murmur Lungs: CTA bilateral, no rhonchi, no rales, no accessory muscle use Ext: No gross muscle atrophy, no edema, no contractures Neuro: no focal neuro deficits Psych: Alert, oriented, appropriate affect Based on my assessment of this patient, this patient meets a high complexity level of care. Acute kidney injury likely due to Vancomycin induced acute interstitial nephritis: Renal US no hydro, hypoechoic lesion mid L kidney (seen since 06/2024). Concerns for acute interstitial nephritis caused by Vancomycin. Bladder scan negative. Hold ACEi. Nephrology consult, bicarb drip at 75 cc/hr, start Prednisone 50 mg PO QD. Sepsis likely secondary to surgical site infection: Status post aspiration of seroma. Cultures negative. Antibiotics discontinued. ID on board. Recent abdominal hernia surgery at [facility] NSTEMI, likely type II CAD status post recent stent placement on 08/30/2024: Aspirin 81 mg PO QD, Brilinta 90 mg PO BID, metoprolol 25 mg PO BID. Acute transaminitis: Known metastatic lesions in the liver. Hold amiodarone and statin History of DVT: Continue Eliquis 5 mg PO BID. 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 DVT Prophylaxis: Eliquis 5 mg PO BID. GI Prophylaxis: Protonix PO Designated medical POA if patient is not able to make medical decisions for themselves: I have reviewed the following otm consultant notes: Surgery, ID, Nephrology I have reviewed the results of the following tests: CBC, BMP, Mag. I have ordered the following tests: BMP in AM. I have discussed the care of this patient with the following independent historian: I have independently interpreted the following test below: I have discussed the management of this patient with the following physician: Objective - Vital Signs Vital signs: Vital Signs Temp 98.1 F 09/10/24 09:05 Pulse 70 09/10/24 09:05 Resp 14 09/10/24 09:05 BP 154/60 09/10/24 09:05 Pulse Ox 95 09/10/24 09:05 FiO2 Intake & Output 09/09/24 09/10/24 09/10/24 18:59 06:59 18:59 Intake Total 222 Output Total 0 0 Balance 222 0 Weight 82.8 kg Intake: Oral 222 Output: Drainage 0 0 Right Abdomen 0 0 Other: Voiding Method Toilet # Voids 1 - Labs CBC & Chem 7: 09/10/24 09:21 09/10/24 09:21 Labs: Abnormal Lab Results - Last 24 Hours (Table) 09/09/24 Range/Units 11:27 WBC 14.3 H (3.8-10.6) k/uL RBC 3.53 L (3.80-5.40) m/uL Hgb 9.4 L (11.4-16.0) gm/dL Hct 30.4 L (34.0-46.0) % RDW 19.7 H (11.5-15.5) % Neutrophils # 11.5 H (1.3-7.7) k/uL Microbiology - Last 24 Hours (Table) 09/06/24 14:00 Gram Stain - Final Aspirate Body Fluid Culture - Final 09/03/24 23:24 Blood Culture - Final Blood
[2024-09-10] MEDS: predniSONE 50 MG TAB PO SCH (13:30)
[2024-09-11 08:45] LABS: African American GFR (CKD) 16 (>60 ml/min/1.73 sqM); Anion Gap 11 mmol/L; Blood Urea Nitrogen 42 mg/dL (7-17); Calcium 8.3 mg/dL (8.4-10.2); Carbon Dioxide 25 mmol/L (22-30); Chloride 98 mmol/L (98-107); Glucose 305 mg/dL (74-99); Non-African American GFR(CKD) 14 (>60 ml/min/1.73 sqM); Potassium 4.1 mmol/L (3.5-5.1); Sodium 134 mmol/L (137-145)
[2024-09-11] MEDS: LACTATED RINGERS 1,000 ML IV SCH (10:28)
--- NOTE | 2024-09-11 10:46 | P.PN ---
Subjective Progress Note Date: 09/10/24 Principal diagnosis: Reason for follow-up is fever leukocytosis question of abdominal wall seroma/infected seroma Patient is a 64-year-old female with a past medical history significant for colon cancer uterine cancer in this patient who recently did have a open repair of the incisional hernia at the [facility] patient was just discharged from hospital after a week stay and presented back to the hospital concerning or pain to the mid/upper back, patient did have a fever elevated white count CT did show evidence of large anterior abdominal fluid collection with air prompting this consultation. On today's evaluation that is 09/10/2024,the patient remains to be afebrile, patient is on room air not requiring supplemental oxygen and denies any shortness of breath no chest pain or cough.Patient denies having any nausea or vomiting, no significant abdominal pain , drainage catheter has been removed Patient white count is 13.5, creatinine 3.22 culture has been negative Objective - Vital Signs Vital signs: Vital Signs Temp 98.3 F 09/10/24 11:44 Pulse 55 L 09/10/24 11:44 Resp 14 09/10/24 11:44 BP 137/75 09/10/24 11:44 Pulse Ox 94 L 09/10/24 11:44 FiO2 Intake & Output 09/09/24 09/10/24 09/10/24 18:59 06:59 18:59 Intake Total 222 Output Total 0 0 Balance 222 0 Weight 82.8 kg Intake: Oral 222 Output: Drainage 0 0 Right Abdomen 0 0 Other: Voiding Method Toilet Toilet # Voids 1 3 - Exam Elderly female up in the room without distress No tachypnea or accessory muscle respiration Unlabored breathing Abdominal incision is currently dressed - Labs CBC & Chem 7: 09/10/24 09:21 09/11/24 08:10 Labs: Abnormal Lab Results - Last 24 Hours (Table) 09/10/24 09/10/24 Range/Units 09:21 09:21 WBC 13.5 H (3.8-10.6) k/uL RBC 3.11 L (3.80-5.40) m/uL Hgb 8.6 L (11.4-16.0) gm/dL Hct 27.8 L (34.0-46.0) % RDW 19.8 H (11.5-15.5) % Sodium 132 L (137-145) mmol/L Carbon Dioxide 19 L (22-30) mmol/L BUN 38 H (7-17) mg/dL Creatinine 3.22 H (0.52-1.04) mg/dL Glucose 240 H (74-99) mg/dL Calcium 7.9 L (8.4-10.2) mg/dL Microbiology - Last 24 Hours (Table) 09/06/24 14:00 Gram Stain - Final Aspirate Body Fluid Culture - Final 09/03/24 23:24 Blood Culture - Final Blood Assessment and Plan (1) Fever Current Visit: Yes Status: Acute Code(s): R50.9 - FEVER, UNSPECIFIED S NOMED Code(s): 432217325 (2) Leukocytosis Current Visit: Yes Status: Acute Code(s): D72.829 - ELEVATED WHITE BLOOD CELL COUNT, UNSPECIFIED SNOMED Code(s): 174974475 (3) Abdominal wall seroma Current Visit: Yes Status: Acute Code(s): S30.1XXA - CONTUSION OF ABDOMINAL WALL, INITIAL ENCOUNTER SNOMED Code(s): 602383845 Plan: 1patient who recently did have a abdominal incisional hernia repair just got discharged from [facility] now presented to hospital mostly with the pain to the upper back below the shoulder blade in this patient who did have a thoracic CT which did shows evidence of fluid collection to the anterior abdominal wall with some air did have low-grade fever elevated white count with concern for possible seroma/infected seroma however no evidence of any cellulitis or tenderness on examination 2-patient is status post IR drainage of the fluid collection which is mostly bloody possibly indicating hematoma rather than infection, culture have been negative so far 3-patient remains to be afebrile white count slightly elevated will monitor closely off antibiotic therapy at this point Dictation was produced using [employer] dictation software. please excuse any grammatical, word or spelling errors. Time with Patient: Less than 30
--- NOTE | 2024-09-11 10:50 | P.PN ---
Subjective patient is seen for follow-up for acute kidney injury. No significant complaints today. Maintained on IV fluids. No hypotension noted. Started on prednisone yesterday for possible acute interstitial nephritis as urine eosinophils were positive. Serum creatinine at 3.3 today from 3.2 yesterday. Objective - Vital Signs Vital signs: Vital Signs Temp 97.6 F 09/11/24 08:58 Pulse 69 09/11/24 08:58 Resp 16 09/11/24 08:58 BP 147/74 09/11/24 08:58 Pulse Ox 94 L 09/11/24 08:58 FiO2 Intake & Output 09/10/24 09/11/24 09/11/24 18:59 06:59 18:59 Intake Total 118 476 Output Total 10 Balance 108 476 Weight 83.5 kg Intake: Oral 118 476 Output: Drainage 10 Right Abdomen 10 Other: Voiding Method Toilet Toilet Toilet # Voids 3 1 1 # Bowel Movements 1 - Exam patient is awake, comfortable, no acute distress. Examination of the heart S1 and S2 Examination of the lungs bilateral breath sounds are heard Abdomen is soft nontender Examination lower extremity shows no significant edema [employer] exam grossly intact - Labs CBC & Chem 7: 09/10/24 09:21 09/11/24 08:10 Labs: Abnormal Lab Results - Last 24 Hours (Table) 09/11/24 Range/Units 08:10 Sodium 134 L (137-145) mmol/L BUN 42 H (7-17) mg/dL Creatinine 3.39 H (0.52-1.04) mg/dL Glucose 305 H (74-99) mg/dL Calcium 8.3 L (8.4-10.2) mg/dL Microbiology - Last 24 Hours (Table) 09/06/24 14:00 Gram Stain - Final Aspirate Body Fluid Culture - Final Assessment and Plan Assessment: 1. Acute kidney injury secondary to ATN secondary to severe sepsis. Creatinine 1.0 on admission and is 3.3 today. No proteinuria noted on UA. Urine eosinophols are positive suggesting possible underlying acute interstitial nephritis. Started on prednisone on 09/10/2024. Kidney ultrasound showed atrophic left kidney with no evidence of hydronephrosis. 2. Abdominal wall seroma status post drain placed by IR. s/p antibiotics. ID following. 3. Benign hypertension. Stable. 4. Colon cancer status post left colectomy with metastatic disease to the liver. 5. Metabolic acidosis secondary to acute kidney injury. 6. Coronary disease with stent placement August 30, 2024. 7. Status post recent hernia surgery at [facility]. Plan: continue prednisone for possible underlying acute interstitial nephritis. Repeat labs in a.m. Continue to avoid nephrotoxic agents
--- NOTE | 2024-09-11 11:05 | P.PN ---
Subjective Progress Note Date: 09/11/24 Principal diagnosis: Abdominal wall seroma Patient is doing well today. Tolerating diet. Drain was removed. Two thirds diana were removed yesterday. No issues. Objective - Vital Signs Vital signs: Vital Signs Temp 97.6 F 09/11/24 08:58 Pulse 69 09/11/24 08:58 Resp 16 09/11/24 08:58 BP 147/74 09/11/24 08:58 Pulse Ox 94 L 09/11/24 08:58 FiO2 Intake & Output 09/10/24 09/11/24 09/11/24 18:59 06:59 18:59 Intake Total 118 476 Output Total 10 Balance 108 476 Weight 83.5 kg Intake: Oral 118 476 Output: Drainage 10 Right Abdomen 10 Other: Voiding Method Toilet Toilet Toilet # Voids 3 1 1 # Bowel Movements 1 - Exam Abdomen: Soft, nondistended, nontender, drain site without drainage, incision with one third diana left. Will removed. - Labs CBC & Chem 7: 09/10/24 09:21 09/11/24 08:10 Labs: Abnormal Lab Results - Last 24 Hours (Table) 09/11/24 Range/Units 08:10 Sodium 134 L (137-145) mmol/L BUN 42 H (7-17) mg/dL Creatinine 3.39 H (0.52-1.04) mg/dL Glucose 305 H (74-99) mg/dL Calcium 8.3 L (8.4-10.2) mg/dL Microbiology - Last 24 Hours (Table) 09/06/24 14:00 Gram Stain - Final Aspirate Body Fluid Culture - Final Assessment and Plan (1) Abdominal wall seroma Narrative/Plan: Patient doing well at this time. Remove the remainder of the diana. No further surgical recommendations. Will sign off. Please reconsult if needed. Current Visit: Yes Status: Acute Code(s): S30.1XXA - CONTUSION OF ABDOMINAL WALL, INITIAL ENCOUNTER SNOMED Code(s): 839213228
[2024-09-11] MEDS ORDERED: DEXTROSE 50% SYRINGE 50 ML IVP PRN ×2 (12:29)
[2024-09-11 12:56] LABS: Glucose,Whole Blood 287 mg/dL (70-110)
[2024-09-11] MEDS: INSULIN ASPART (NovoLOG) 100 UNIT/ML VIAL SQ SCH (13:04)
--- NOTE | 2024-09-11 14:37 | P.PN ---
Subjective Progress Note Date: 09/11/24 64-year-old female with colon cancer (stage IV, s/p colectomy 08/2021, following with Dr. Morales, currently on Keytruda holiday), DVT (on Eliquis), and hiatal hernia repair on 08/25/2024 and a history of uterine cancer and ascites. Is presenting to the emergency department complaining of mid back pain. Recent heart cath with stent placement on 08/30/2024. In the ED she underwent extensive evaluation. BP 149/82, HR 64, RR 16, T 98.2, 97% on RA. CBC, Coag panel, CMP significant for WBC 19.8, APTT 34.8, BUN 28, Cr 1.06, glu 144, AST 88, ALT 48, alk phos 929. Trop 0.16, 0.142, 0.148. SNP 883. Lipase 44. CXR done in the ER showed bibasilar infiltrates likely subsegmental atelectasis. Thoracic aorta CT showed ascending thoracic aortic aneurysm of 4.1 cm; no descending thoracic or abdominal aortic aneurysm evident; no aortic dissection evident; large fluidlike collection with some air in the anterior abdominal wall has enlarged following surgery when comparing to the presurgical image. EKG done in the ER showed heart rate of 66, evidence of a left bundle branch block; QTc 438; negative for Sgar bossa's criteria. Patient started on heparin drip and IV Zosyn and vancomycin. General surgery and cardiology was consulted. Cardiology consulted, amiodarone discontinued due to transaminitis. Surgery consulted, recommended no surgical intervention. Heparin drip switched back to Eliquis. ID consulted due to low grade fevers and leukocytosis, she underwent IR aspiration of seroma. Cultures were negative and antibiotics were discontinued. Noted to have worsening renal function on 09/07 along with worsening metabolic acidosis. Nephrology consulted, Renal US no hydro with hypoechoic lesion mid L kidney (seen since 06/2024), bladder scan negative, started on bicarb infusion. Urine eosinophils 2%, concerns for acute interstitial nephritis, started on Prednisone. 09/11 Patient seen and examined at bedside. No acute events overnight. She reports no complaints today. BMP significant for Na 134, BUN 42, Cr 3.39, glu 305, Ca 8.3. Maintained on LR at 50 cc/hr. Vitals Signs Reviewed. General: Nontoxic, no distress, appears at stated age Derm: Warm, dry, right chest port site clean, dry, intact Head: Atraumatic, normocephalic, symmetric Eyes: EOMI, no lid lag, anicteric sclera Mouth: No lip lesion, mucus membranes moist Cardiovascular: S1S2 reg, no murmur Lungs: CTA bilateral, no rhonchi, no rales, no accessory muscle use Ext: No gross muscle atrophy, no edema, no contractures Neuro: no focal neuro deficits Psych: Alert, oriented, appropriate affect Based on my assessment of this patient, this patient meets a high complexity level of care. Acute kidney injury likely due to Vancomycin induced acute interstitial nephritis: Renal US no hydro, hypoechoic lesion mid L kidney (seen since 06/2024). Urine eosinophils 2%, concerns for acute interstitial nephritis. Bladder scan negative. Hold ACEi. Nephrology consult, LR at 75 cc/hr, Prednisone 50 mg PO QD. Sepsis likely secondary to surgical site infection: Status post aspiration of seroma. Cultures negative. Antibiotics discontinued. ID on board. Recent abdominal hernia surgery at [facility] [place] NSTEMI, likely type II CAD status post recent stent placement on 08/30/2024: Aspirin 81 mg PO QD, Brilinta 90 mg PO BID, metoprolol 25 mg PO BID. Acute transaminitis: Known metastatic lesions in the liver. Hold amiodarone and statin History of DVT: Continue Eliquis 5 mg PO BID. 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 DVT Prophylaxis: Eliquis 5 mg PO BID. GI Prophylaxis: Protonix PO Designated medical POA if patient is not able to make medical decisions for themselves: I have reviewed the following programmer analyst consultant notes: Surgery, Nephrology I have reviewed the results of the following tests: BMP I have ordered the following tests: BMP in AM. I have discussed the care of this patient with the following independent historian: I have independently interpreted the following test below: I have discussed the management of this patient with the following physician: Objective - Vital Signs Vital signs: Vital Signs Temp 97.6 F 09/11/24 08:58 Pulse 69 09/11/24 08:58 Resp 16 09/11/24 08:58 BP 147/74 09/11/24 08:58 Pulse Ox 94 L 09/11/24 08:58 FiO2 Intake & Output 09/10/24 09/11/24 09/11/24 18:59 06:59 18:59 Intake Total 118 476 Output Total 10 Balance 108 476 Weight 83.5 kg Intake: Oral 118 476 Output: Drainage 10 Right Abdomen 10 Other: Voiding Method Toilet Toilet Toilet # Voids 3 1 1 # Bowel Movements 1 - Labs CBC & Chem 7: 09/10/24 09:21 09/11/24 08:10 Labs: Abnormal Lab Results - Last 24 Hours (Table) 09/10/24 09/10/24 09/11/24 Range/Units 09:21 09:21 08:10 WBC 13.5 H (3.8-10.6) k/uL RBC 3.11 L (3.80-5.40) m/uL Hgb 8.6 L (11.4-16.0) gm/dL Hct 27.8 L (34.0-46.0) % RDW 19.8 H (11.5-15.5) % Sodium 132 L 134 L (137-145) mmol/L Carbon Dioxide 19 L (22-30) mmol/L BUN 38 H 42 H (7-17) mg/dL Creatinine 3.22 H 3.39 H (0.52-1.04) mg/dL Glucose 240 H 305 H (74-99) mg/dL Calcium 7.9 L 8.3 L (8.4-10.2) mg/dL Microbiology - Last 24 Hours (Table) 09/06/24 14:00 Gram Stain - Final Aspirate Body Fluid Culture - Final
[2024-09-11 16:18] LABS: Glucose,Whole Blood 260 mg/dL (70-110)
[2024-09-11 20:03] LABS: Glucose,Whole Blood 283 mg/dL (70-110)
--- NOTE | 2024-09-11 20:57 | P.PN ---
Subjective Progress Note Date: 09/11/24 Principal diagnosis: Reason for follow-up is fever leukocytosis question of abdominal wall seroma/infected seroma This is a telehealth visit Patient is a 64-year-old female with a past medical history significant for colon cancer uterine cancer in this patient who recently did have a open repair of the incisional hernia at the [facility] patient was just discharged from hospital after a week stay and presented back to the hospital concerning or pain to the mid/upper back, patient did have a fever elevated white count CT did show evidence of large anterior abdominal fluid collection with air prompting this consultation. On today's evaluation that is 09/11/2024, the patient continues to be afebrile, the patient is on room air and breathing comfortably, the Pt denies having any chest pain or cough, the patient denies having any abdominal pain no vomiting or any diarrhea, patient mentioned Making good amount of urine. Patient did have a creatinine of 3.39 no CBC was done today Objective - Vital Signs Vital signs: Vital Signs Temp 97.6 F 09/11/24 08:58 Pulse 69 09/11/24 08:58 Resp 16 09/11/24 08:58 BP 147/74 09/11/24 08:58 Pulse Ox 94 L 09/11/24 08:58 FiO2 Intake & Output 09/10/24 09/11/24 09/11/24 18:59 06:59 18:59 Intake Total 118 476 Output Total 10 Balance 108 476 Weight 83.5 kg Intake: Oral 118 476 Output: Drainage 10 Right Abdomen 10 Other: Voiding Method Toilet Toilet Toilet # Voids 3 1 1 # Bowel Movements 1 - Exam Elderly female up in the bed in no distress No tachypnea or accessory muscle respiration use Unlabored breathing Patient is awake alert oriented x 3 - Labs CBC & Chem 7: 09/10/24 09:21 09/11/24 08:10 Labs: Abnormal Lab Results - Last 24 Hours (Table) 09/11/24 Range/Units 08:10 Sodium 134 L (137-145) mmol/L BUN 42 H (7-17) mg/dL Creatinine 3.39 H (0.52-1.04) mg/dL Glucose 305 H (74-99) mg/dL Calcium 8.3 L (8.4-10.2) mg/dL Microbiology - Last 24 Hours (Table) 09/06/24 14:00 Gram Stain - Final Aspirate Body Fluid Culture - Final Assessment and Plan (1) Fever Current Visit: Yes Status: Acute Code(s): R50.9 - FEVER, UNSPECIFIED SNOMED Code(s): 758932108 (2) Leukocytosis Current Visit: Yes Status: Acute Code(s): D72.829 - ELEVATED WHITE BLOOD CE LL COUNT, UNSPECIFIED SNOMED Code(s): 119932945 (3) Abdominal wall seroma Current Visit: Yes Status: Acute Code(s): S30.1XXA - CONTUSION OF ABDOMINAL WALL, INITIAL ENCOUNTER SNOMED Code(s): 514236727 Plan: 1patient who recently did have a abdominal incisional hernia repair just got discharged from [facility] now presented to hospital mostly with the pain to the upper back below the shoulder blade in this patient who did have a thoracic CT which did shows evidence of fluid collection to the anterior abdominal wall with some air did have low-grade fever elevated white count with concern for possible seroma/infected seroma however no evidence of any cellulitis or tenderness on examination 2-patient is status post IR drainage of the fluid collection which is mostly bloody possibly indicating hematoma rather than infection, culture have been negative so far 3-patient remains to be afebrile white count slightly elevated as of yesterday no CBC was done today, will monitor closely off antibiotic therapy at this point Dictation was produced using [employer] dictation software. please excuse any grammatical, word or spelling errors.
[2024-09-12 06:05] LABS: Glucose,Whole Blood 144 mg/dL (70-110)
[2024-09-12 08:02] LABS: African American GFR (CKD) 15 (>60 ml/min/1.73 sqM); Anion Gap 9 mmol/L; Blood Urea Nitrogen 49 mg/dL (7-17); Carbon Dioxide 27 mmol/L (22-30); Chloride 101 mmol/L (98-107); Glucose 131 mg/dL (74-99); Non-African American GFR(CKD) 13 (>60 ml/min/1.73 sqM); Potassium 4.3 mmol/L (3.5-5.1); Sodium 137 mmol/L (137-145)
[2024-09-12] MEDS: INSULIN DETEMIR (LEVEMIR) 100 UNIT/ML SYR SQ SCH (08:43)
--- NOTE | 2024-09-12 09:35 | P.PN ---
Subjective Progress Note Date: 09/12/24 Principal diagnosis: 64-year-old female with colon cancer (stage IV, s/p colectomy 08/2021, following with Dr. Morales, currently on Keytruda holiday), DVT (on Eliquis), and hiatal hernia repair on 08/25/2024 and a history of uterine cancer and ascites. Is presenting to the emergency department complaining of mid back pain. Recent heart cath with stent placement on 08/30/2024. In the ED she underwent extensive evaluation. BP 149/82, HR 64, RR 16, T 98.2, 97% on RA. CBC, Coag panel, CMP significant for WBC 19.8, APTT 34.8, BUN 28, Cr 1.06, glu 144, AST 88, ALT 48, alk phos 929. Trop 0.16, 0.142, 0.148. SNP 883. Lipase 44. CXR done in the ER showed bibasilar infiltrates likely subsegmental atelectasis. Thoracic aorta CT showed ascending thoracic aortic aneurysm of 4.1 cm; no descending thoracic or abdominal aortic aneurysm evident; no aortic dissection evident; large fluidlike collection with some air in the anterior abdominal wall has enlarged following surgery when comparing to the presurgical image. EKG done in the ER showed heart rate of 66, evidence of a left bundle branch block; QTc 438; negative for Sgarbossa's criteria. Patient started on heparin drip and IV Zosyn and vancomycin. General surgery and cardiology was consulted. Cardiology consulted, amiodarone discontinued due to transaminitis. Surgery consulted, recommended no surgical intervention. Heparin drip switched back to Eliquis. ID consulted due to low grade fevers and leukocytosis, she underwent IR aspiration of seroma. Cultures were negative and antibiotics were discontinued. Noted to have worsening renal function on 09/07 along with worsening metabolic acidosis. Nephrology consulted, Renal US no hydro with hypoechoic lesion mid L kidney (seen since 06/2024), bladder scan negative, started on bicarb infusion. Urine eosinophils 2%, concerns for acute interstitial nephritis, started on Prednisone. 09/12: Cr 3.44. fasting blood glucose of 131. Cr on 09/12 noted to be 3.39. Reports she is making urine Objective - Vital Signs Vital signs: Vital Signs Temp 98 F 09/12/24 08:00 Pulse 62 09/12/24 08:00 Resp 17 09/12/24 08:00 BP 167/76 09/12/24 08:00 Pulse Ox 93 L 09/12/24 08:00 FiO2 Intake & Output 09/11/24 09/12/24 09/12/24 18:59 06:59 18:59 Intake Total 714 900 Balance 714 900 Weight 83.5 kg Intake: Oral 714 900 Other: Voiding Method Toilet Toilet Toilet # Voids 3 1 1 # Bowel Movements 1 1 - Exam General: Nontoxic, no distress, appears at stated age, female, pleasant Derm: Warm, dry, right chest port site clean, dry, intact Head: Atraumatic, normocephalic, symmetric Eyes: EOMI, no lid lag, anicteric sclera Mouth: No lip lesion, mucus membranes moist Cardiovascular: S1S2 reg, no murmur Lungs: CTA bilateral, no rhonchi, no rales, no accessory muscle use Ext: No gross muscle atrophy, no edema, no contractures Neuro: no focal neuro deficits Psych: Alert, oriented, appropriate affect abd: soft, nontedner - Labs CBC & Chem 7: 09/10/24 09:21 09/12/24 06:50 Labs: Abnormal Lab Results - Last 24 Hours (Table) 09/11/24 09/11/24 09/11/24 Range/Units 12:52 16:15 20:02 BUN (7-17) mg/dL Creatinine (0.52-1.04) mg/dL Glucose (74-99) mg/dL POC Glucose (mg/dL) 287 H 260 H 283 H (70-110) mg/dL 09/12/24 09/12/24 Range/Units 06:03 06:50 BUN 49 H (7-17) mg/dL Creatinine 3.44 H (0.52-1.04) mg/dL Glucose 131 H (74-99) mg/dL POC Glucose (mg/dL) 144 H (70-110) mg/dL Assessment and Plan Assessment: Acute kidney injury suspect due to Vancomycin induced acute interstitial nephritis: Renal US no hydro, hypoechoic lesion mid L kidney (seen since 06/2024). Urine eosinophils 2%, concerns for acute interstitial nephritis. Bladder scan negative. Hold ACEi. Continue prednisone 50 mg daily. Awaiting for renal function to pleatau which I suspect to be on the upcoming days. renally adjust medications. continue sliding scale insulin for steroid induced hyperglyemia Sepsis suspect secondary to surgical site infection: Status post aspiration of seroma. Cultures negative. Antibiotics discontinued. ID on board. drain was d/zarina Recent abdominal hernia surgery [place] [facility] [place], likely type II CAD status post recent stent placement on 08/30/2024: Aspirin 81 mg PO QD, Brilinta 90 mg PO BID, metoprolol 25 mg PO BID. Acute transaminitis: Known metastatic lesions in the liver. Hold amiodarone and statin History of DVT: Continue Eliquis 5 mg PO BID. 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 DVT Prophylaxis: Eliquis 5 mg PO BID. GI Prophylaxis: Protonix PO Designated medical POA if patient is not able to make medical decisions for themselves: (1) Abdominal wall seroma Current Visit: Yes Status: Acute Code(s): S30.1XXA - CONTUSION OF ABDOMINAL WALL, INITIAL ENCOUNTER SNOMED Code(s): 709255761
[2024-09-12] MEDS: amLODIPine 5 MG TAB PO SCH (10:16)
[2024-09-12 11:19] LABS: Glucose,Whole Blood 236 mg/dL (70-110)
--- NOTE | 2024-09-12 11:23 | P.PN ---
Subjective patient is seen for follow-up for acute kidney injury. No significant complaints today. Maintained on IV fluids. Blood pressure slightly on the higher side today. Started on prednisone on 09/10/2024 for possible acute interstitial nephritis as urine eosinophils were positive. Serum creatinine appears to have stabilized and is 3.4 today. Objective - Vital Signs Vital signs: Vital Signs Temp 98 F 09/12/24 08:00 Pulse 62 09/12/24 08:00 Resp 17 09/12/24 08:00 BP 167/76 09/12/24 08:00 Pulse Ox 93 L 09/12/24 08:00 FiO2 Intake & Output 09/11/24 09/12/24 09/12/24 18:59 06:59 18:59 Intake Total 714 900 Balance 714 900 Weight 83.5 kg Intake: Oral 714 900 Other: Voiding Method Toilet Toilet Toilet # Voids 3 1 1 # Bowel Movements 1 1 - Exam patient is awake, comfortable, no acute distress. 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 - Labs CBC & Chem 7: 09/10/24 09:21 09/12/24 06:50 Labs: Abnormal Lab Results - Last 24 Hours (Table) 09/11/24 09/11/24 09/11/24 Range/Units 12:52 16:15 20:02 BUN (7-17) mg/dL Creatinine (0.52-1.04) mg/dL Glucose (74-99) mg/dL POC Glucose (mg/dL) 287 H 260 H 283 H (70-110) mg/dL Hemoglobin A1c (<=6.0) % 09/12/24 09/12/24 09/12/24 Range/Units 06:03 06:50 06:50 BUN 49 H (7-17) mg/dL Creatinine 3.44 H (0.52-1.04) mg/dL Glucose 131 H (74-99) mg/dL POC Glucose (mg/dL) 144 H (70-110) mg/dL Hemoglobin A1c 7.0 H (<=6.0) % 09/12/24 Range/Units 11:18 BUN (7-17) mg/dL Creatinine (0.52-1.04) mg/dL Glucose (74-99) mg/dL POC Glucose (mg/dL) 236 H (70-110) mg/dL Hemoglobin A1c (<=6.0) % Assessment and Plan Assessment: 1. Acute kidney injury secondary to ATN secondary to severe sepsis. Creatinine 1.0 on admission and is 3.4 today. No proteinuria noted on UA. Urine eosinophols are positive suggesting possible underlying acute interstitial ne phritis. Started on prednisone on 09/10/2024. Kidney ultrasound showed atrophic left kidney with no evidence of hydronephrosis. 2. Abdominal wall seroma status post drain placed by IR. s/p antibiotics. ID following. 3. Benign hypertension. Stable. 4. Colon cancer status post left colectomy with metastatic disease to the liver. 5. Metabolic acidosis secondary to acute kidney injury. 6. Coronary disease with stent placement August 30, 2024. 7. Status post recent hernia surgery at [facility] [place]. Plan: continue prednisone for possible underlying acute interstitial nephritis. DC IV fluids Add Norvasc Repeat labs in a.m. Continue to avoid nephrotoxic agents
--- NOTE | 2024-09-12 12:48 | P.PN ---
Subjective Progress Note Date: 09/12/24 Principal diagnosis: Reason for follow-up is fever leukocytosis question of abdominal wall seroma/infected seroma Patient is a 64-year-old female with a past medical history significant for colon cancer uterine cancer in this patient who recently did have a open repair of the incisional hernia at the [facility] patient was just discharged from hospital after a week stay and presented back to the hospital concerning or pain to the mid/upper back, patient did have a fever elevated white count CT did show evidence of large anterior abdominal fluid collection with air prompting this consultation. On today's evaluation that is 09/12/2024, Patient is afebrile patient is currently on room air and denies having any shortness of breath, the patient denies any chest pain or cough, the patient denies any nausea vomiting did not have any abdominal pain and no diarrhea. No new symptoms. The patient creatinine 3.44 culture remains to be negative Objective - Vital Signs Vital signs: Vital Signs Temp 98 F 09/12/24 08:00 Pulse 58 L 09/12/24 11:27 Resp 16 09/12/24 11:27 BP 159/81 09/12/24 11:27 Pulse Ox 96 09/12/24 11:27 FiO2 Intake & Output 09/11/24 09/12/24 09/12/24 18:59 06:59 18:59 Intake Total 714 900 Balance 714 900 Weight 83.5 kg Intake: Oral 714 900 Other: Voiding Method Toilet Toilet Toilet # Voids 3 1 1 # Bowel Movements 1 1 - Exam GENERAL DESCRIPTION: An elderly female up in the chair in no distress RESPIRATORY SYSTEM: Unlabored breathing , decreased breath sounds at bases HEART: S1 S2 regular rate and rhythm , ABDOMEN: Soft , no tenderness EXTREMITIES: No edema feet - Labs CBC & Chem 7: 09/10/24 09:21 09/12/24 06:50 Labs: Abnormal Lab Results - Last 24 Hours (Table) 09/11/24 09/11/24 09/11/24 Range/Units 12:52 16:15 20:02 BUN (7-17) mg/dL Creatinine (0.52-1.04) mg/dL Glucose (74-99) mg/dL POC Glucose (mg/dL) 287 H 260 H 283 H (70-110) mg/dL Hemoglobin A1c (<=6.0) % 09/12/24 09/12/24 09/12/24 Range/Units 06:03 06:50 06:50 BUN 49 H (7-17) mg/dL Creatinine 3.44 H (0.52-1.04) mg/dL Glucose 131 H (74-99) mg/dL POC Glucose (mg/dL) 144 H (70-110) mg/dL Hemoglobin A1c 7.0 H (<=6.0) % 09/12/24 Range/Units 11:18 BUN (7-17) mg/dL Creatinine (0.52-1.04) mg/dL Glucose (74-99) mg/dL POC Glucose (mg/dL) 236 H (70-110) mg/dL Hemoglobin A1c (<=6.0) % Assessment and Plan (1) Fever Current Visit: Yes Status: Acute Code(s): R50.9 - FEVER, UNSPECIFIED SNOMED Code(s): 017911570 (2) Leukocytosis Current Visit: Yes Status: Acute Code(s): D72.829 - ELEVATED WHITE BLOOD CELL COUNT, UNSPECIFIED SNOMED Code(s): 295589136 (3) Abdominal wall seroma Current Visit: Yes Status: Acute Code(s): S30.1XXA - CONTUSION OF ABDOMINAL WALL, INITIAL ENCOUNTER SNOMED Code(s): 635683789 Plan: 1patient who recently did have a abdominal incisional hernia repair just got discharged from [facility] now presented to hospital mostly with the pain to the upper back below the shoulder blade in this patient who did have a thoracic CT which did shows evidence of fluid collection to the anterior abdominal wall with some air did have low-grade fever elevated white count with concern for possible seroma/infected seroma however no evidence of any cellulitis or tenderness on examination 2-patient is status post IR drainage of the fluid collection which is mostly bloody possibly indicating hematoma rather than infection, culture have been negative so far 3-patient remains to be afebrile white count slightly elevated, however no CBC was done today, patient is currently being monitored closely off antibiotic therapy at this point Dictation was produced using [employer] dictation software. please excuse any grammatical, word or spelling errors. Time with Patient: Less than 30
[2024-09-12 16:24] LABS: Glucose,Whole Blood 304 mg/dL (70-110)
[2024-09-12 20:21] LABS: Glucose,Whole Blood 298 mg/dL (70-110)
[2024-09-12 23:34] LABS: African American GFR (CKD) 19 (>60 ml/min/1.73 sqM); Anion Gap 6 mmol/L; Blood Urea Nitrogen 53 mg/dL (7-17); Calcium 8.8 mg/dL (8.4-10.2); Carbon Dioxide 27 mmol/L (22-30); Chloride 104 mmol/L (98-107); Glucose 195 mg/dL (74-99); Non-African American GFR(CKD) 16 (>60 ml/min/1.73 sqM); Potassium 4.2 mmol/L (3.5-5.1); Sodium 137 mmol/L (137-145)
[2024-09-13] MEDS ORDERED: hydrALAZINE HCL 20 MG/ML 1 ML VIAL IVP PRN (03:57)
[2024-09-13 06:07] LABS: Glucose,Whole Blood 101 mg/dL (70-110)
[2024-09-13 07:32] LABS: African American GFR (CKD) 20 (>60 ml/min/1.73 sqM); Anion Gap 8 mmol/L; Blood Urea Nitrogen 54 mg/dL (7-17); Calcium 9.1 mg/dL (8.4-10.2); Carbon Dioxide 28 mmol/L (22-30); Chloride 101 mmol/L (98-107); Glucose 98 mg/dL (74-99); Non-African American GFR(CKD) 18 (>60 ml/min/1.73 sqM); Potassium 4.3 mmol/L (3.5-5.1); Sodium 137 mmol/L (137-145)
[2024-09-13 11:23] LABS: Glucose,Whole Blood 130 mg/dL (70-110)
--- NOTE | 2024-09-13 11:42 | P.PN ---
Subjective patient is seen for follow-up for acute kidney injury. No significant complaints today. S/p IV fluids. Blood pressure staying high from prednisone Started on prednisone on 09/10/2024 for possible acute interstitial nephritis as urine eosinophils were positive. Serum creatinine has improved and is 2.7 today. Objective - Vital Signs Vital signs: Vital Signs Temp 97.9 F 09/13/24 08:42 Pulse 60 09/13/24 11:29 Resp 16 09/13/24 11:29 BP 173/76 09/13/24 11:29 Pulse Ox 94 L 09/13/24 11:29 FiO2 Intake & Output 09/12/24 09/13/24 09/13/24 18:59 06:59 18:59 Intake Total 1558 118 Balance 1558 118 Weight 83.2 kg Intake: Oral 1558 118 Other: Voiding Method Toilet Toilet Toilet # Voids 1 2 1 # Bowel Movements 1 - Exam patient is awake, comfortable, no acute distress. 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 Acute kidney injury secondary to ATN secondary to severe sepsis. Creatinine 1.0 on admission and is improved to 2.7 today. No proteinuria noted on UA. Urine eosinophols are positive suggesting possible underlying acute interstitial nephritis. Started on prednisone on 09/10/2024. Kidney ultrasound showed atrophic left kidney with no evidence of hydronephrosis. 2. Abdominal wall seroma status post drain placed by IR. s/p antibiotics. ID following. 3. Benign hypertension. Blood pressure is uncontrolled from steroids 4. Colon cancer status post left colectomy with metastatic disease to the liver. 5. Metabolic acidosis secondary to acute kidney injury. 6. Coronary disease with stent placement August 30, 2024. 7. [place] [facility] [place] Plan: continue prednisone for possible underlying acute interstitial nephritis. Decrease dose to 30 mg as renal function continues to improve. Continue Norvasc, increase dose Stable for discharge from nephrology standpoint. Follow-up as outpatient in 1 week Continue to avoid nephrotoxic agents
--- NOTE | 2024-09-13 13:24 | P.PN ---
Subjective Progress Note Date: 09/13/24 Principal diagnosis: Reason for follow-up is fever leukocytosis question of abdominal wall seroma/infected seroma Patient is a 64-year-old female with a past medical history significant for colon cancer uterine cancer in this patient who recently did have a open repair of the incisional hernia at the [facility] patient was just discharged from hospital after a week stay and presented back to the hospital concerning or pain to the mid/upper back, patient did have a fever elevated white count CT did show evidence of large anterior abdominal fluid collection with air prompting this consultation. On today's evaluation that is 09/13/2024, patient has been afebrile, patient is breathing comfortably and is currently on room air, patient denies having any significant cough no chest pain, patient denies nausea vomiting or diarrhea and no abdominal pain. Patient creatinine is down to 2.72 no CBC was done culture remains to be negative Objective - Vital Signs Vital signs: Vital Signs Temp 97.9 F 09/13/24 08:42 Pulse 60 09/13/24 13:20 Resp 16 09/13/24 13:20 BP 173/76 09/13/24 11:29 Pulse Ox 94 L 09/13/24 11:29 FiO2 Intake & Output 09/12/24 09/13/24 09/13/24 18:59 06:59 18:59 Intake Total 1558 118 Balance 1558 118 Weight 83.2 kg Intake: Oral 1558 118 Other: Voiding Method Toilet Toilet Toilet # Voids 1 2 1 # Bowel Movements 1 - Exam GENERAL DESCRIPTION: An elderly female up in the chair in no distress RESPIRATORY SYSTEM: Unlabored breathing , decreased breath sounds at bases HEART: S1 S2 regular rate and rhythm , ABDOMEN: Soft , no tenderness EXTREMITIES: No edema feet - Labs CBC & Chem 7: 09/10/24 09:21 09/13/24 06:45 Labs: Abnormal Lab Results - Last 24 Hours (Table) 09/12/24 09/12/24 09/12/24 Range/Units 16:19 20:20 23:07 BUN 53 H (7-17) mg/dL Creatinine 2.92 H (0.52-1.04) mg/dL Glucose 195 H (74-99) mg/dL POC Glucose (mg/dL) 304 H 298 H (70-110) mg/dL 09/13/24 09/13/24 Range/Units 06:45 11:21 BUN 54 H (7-17) mg/dL Creatinine 2.72 H (0.52-1.04) mg/dL Glucose (74-99) mg/dL POC Glucose (mg/dL) 130 H (70-110) mg/dL Assessment and Plan (1) Fever Current Visit: Yes Status: Acute Code(s): R50.9 - FEVER, UNSPECIFIED SNOMED Code(s): 606495415 (2) Leukocytosis Current Visit: Yes Status: Acute Code(s): D72.829 - ELEVATED WHITE BLOOD CELL COUNT, UNSPECIFIED SNOMED Code(s): 498468469 (3) Abdominal wall seroma Current Visit: Yes Status: Acute Code(s): S30.1XXA - CONTUSION OF ABDOMINAL WALL, INITIAL ENCOUNTER SNOMED Code(s): 999390783 Plan: 1patient who recently did have a abdominal incisional hernia repair just got discharged from [facility] now presented to hospital mostly with the pain to the upper back below the shoulder blade in this patient who did have a thoracic CT which did shows evidence of fluid collection to the anterior abdominal wall with some air did have low-grade fever elevated white count with concern for possible seroma/infected seroma however no evidence of any celluliti s or tenderness on examination 2-patient is status post IR drainage of the fluid collection which is mostly bloody possibly indicating hematoma rather than infection, culture have been negative so far 3-patient remains to be afebrile white count slightly elevated 2 days ago, however no CBC was done today, patient will monitor closely off antibiotic therapy at this point we will check a CBC with a.m. lab Dictation was produced using [employer] dictation software. please excuse any grammatical, word or spelling errors. Time with Patient: Less than 30
--- NOTE | 2024-09-13 14:47 | P.PN ---
Subjective Progress Note Date: 09/13/24 Subjective Principal diagnosis: 64-year-old female with colon cancer (stage IV, s/p colectomy 08/2021, following with Dr. Morales, currently on Keytruda holiday), DVT (on Eliquis), and hiatal hernia repair on 08/25/2024 and a history of uterine cancer and ascites. Is presenting to the emergency department complaining of mid back pain. Recent heart cath with stent placement on 08/30/2024. In the ED she underwent extensive evaluation. BP 149/82, HR 64, RR 16, T 98.2, 97% on RA. CBC, Coag panel, CMP significant for WBC 19.8, APTT 34.8, BUN 28, Cr 1.06, glu 144, AST 88, ALT 48, alk phos 929. Trop 0.16, 0.142, 0.148. SNP 883. Lipase 44. CXR done in the ER showed bibasilar infiltrates likely subsegmental atelectasis. Thoracic aorta CT showed ascending thoracic aortic aneurysm of 4.1 cm; no descending thoracic or abdominal aortic aneurysm evident; no aortic dissection evident; large fluidlike collection with some air in the anterior abdominal wall has enlarged following surgery when comparing to the presurgical image. EKG done in the ER showed heart rate of 66, evidence of a left bundle branch block; QTc 438; negative for Sgarbossa's criteria. Patient started on heparin drip and IV Zosyn and vancomycin. General surgery and cardiology was consulted. Cardiology consulted, amiodarone discontinued due to transaminitis. Surgery consulted, recommended no surgical intervention. Heparin drip switched back to Eliquis. ID consulted due to low grade fevers and leukocytosis, she underwent IR aspiration of seroma. Cultures were negative and antibiotics were discontinued. Noted to have worsening renal function on 09/07 along with worsening metabolic acidosis. Nephrology consulted, Renal US no hydro with hypoechoic lesion mid L kidney (seen since 06/2024), bladder scan negative, started on bicarb infusion. Urine eosinophils 2%, concerns for acute interstitial nephritis, started on Prednisone. 09/12: Cr 3.44. fasting blood glucose of 131. Cr on 09/12 noted to be 3.39. Reports she is making urine 09/13: Patient seen and examined at bedside No acute overnight events. Her creatinine continues to improve trending down from 2.9-2.72, nephrology following, encouraged p.o. hydration Objective - Exam General: Nontoxic, no distress, appears at stated age, female, pleasant Derm: Warm, dry, right chest port site clean, dry, intact Head: Atraumatic, normocephalic, symmetric Eyes: EOMI, no lid lag, anicteric sclera Mouth: No lip lesion, mucus membranes moist Cardiovascular: S1S2 reg, no murmur Lungs: CTA bilateral, no rhonchi, no rales, no accessory muscle use Ext: No gross muscle atrophy, no edema, no contractures Neuro: no focal neuro deficits Psych: Alert, oriented, appropriate affect abd: soft, nontedner Assessment and Plan Assessment: Acute kidney injury suspect due to Vancomycin induced acute interstitial nephritis: Renal US no hydro, hypoechoic lesion mid L kidney (seen since 06/2024). Urine eosinophils 2%, concerns for acute interstitial nephritis. Bladder scan negative. Hold ACEi. Awaiting for renal function to pleatau which I suspect to be on the upcoming days. renally adjust medications. continue sliding scale insulin for steroid induced hyperglyemia kidney function continues to improve daily, nephrology is on board, will defer to them when patient can be discharged from their standpoint. Prednisone decreased to 30mg daily for AIN Sepsis suspect secondary to surgical site infection: Status post aspiration of seroma. Cultures negative. Antibiotics discontinued. ID on board. drain was d/zarina. Recent abdominal hernia surgery at [facility] [place]STEM[place], likely type II CAD status post recent stent placement on 08/30/2024: Aspirin 81 mg PO QD, Brilinta 90 mg PO BID, metoprolol 25 mg PO BID. Acute transaminitis: Known metastatic lesions in the liver. Hold amiodarone and statin History of DVT: Continue Eliquis 5 mg PO BID. 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 DVT Prophylaxis: Eliquis 5 mg PO BID. GI Prophylaxis: Protonix PO Designated medical POA if patient is not able to make medical decisions for t hemselves: (1) Abdominal wall seroma Current Visit: Yes Status: Acute Code(s): S30.1XXA - CONTUSION OF ABDOMINAL WALL, INITIAL ENCOUNTER SNOMED Code(s): 792032690 Objective - Vital Signs Vital signs: Vital Signs Temp 97.9 F 09/13/24 08:42 Pulse 60 09/13/24 13:20 Resp 16 09/13/24 13:20 BP 173/76 09/13/24 11:29 Pulse Ox 94 L 09/13/24 11:29 FiO2 Intake & Output 09/12/24 09/13/24 09/13/24 18:59 06:59 18:59 Intake Total 1558 118 Balance 1558 118 Weight 83.2 kg Intake: Oral 1558 118 Other: Voiding Method Toilet Toilet Toilet # Voids 1 2 1 # Bowel Movements 1 - Labs CBC & Chem 7: 09/10/24 09:21 09/13/24 06:45 Labs: Abnormal Lab Results - Last 24 Hours (Table) 09/12/24 09/12/24 09/12/24 Range/Units 16:19 20:20 23:07 BUN 53 H (7-17) mg/dL Creatinine 2.92 H (0.52-1.04) mg/dL Glucose 195 H (74-99) mg/dL POC Glucose (mg/dL) 304 H 298 H (70-110) mg/dL 09/13/24 09/13/24 Range/Units 06:45 11:21 BUN 54 H (7-17) mg/dL Creatinine 2.72 H (0.52-1.04) mg/dL Glucose (74-99) mg/dL POC Glucose (mg/dL) 130 H (70-110) mg/dL
[2024-09-13 16:47] LABS: Glucose,Whole Blood 309 mg/dL (70-110)
[2024-09-13 20:00] LABS: Glucose,Whole Blood 300 mg/dL (70-110)
[2024-09-13] MEDS: hydrALAZINE HCL 25 MG TAB PO PRN (20:14)
[2024-09-13] MEDS: amLODIPine 5 MG TAB PO SCH (20:14)
[2024-09-14 06:20] LABS: Glucose,Whole Blood 122 mg/dL (70-110)
[2024-09-14 06:52] LABS: Anisocytosis Slight; Basophils # (A) 0.1 k/uL (0-0.2); Basophils % (A) 0 %; Eosinophils % (A) 0 %; HCT 32.3 % (34.0-46.0); Hypochromasia Moderate; Lymphocytes # (A) 2.7 k/uL (1.0-4.8); Lymphocytes % (A) 12 %; MCH 27.3 pg (25.0-35.0); MCHC 30.9 g/dL (31.0-37.0); MCV 88.6 fL (80.0-100.0); Mean Platelet Volume 7.2; Monocytes # (A) 0.9 k/uL (0-1.0); Monocytes % (A) 4 %; Neutrophils # (A) 19.1 k/uL (1.3-7.7); Neutrophils % (A) 83 %; Platelet Count 622 k/uL (150-450); RBC 3.64 m/uL (3.80-5.40); RDW 19.5 % (11.5-15.5); WBC 23.1 k/uL (3.8-10.6)
[2024-09-14 08:38] VITALS: TEMP 97.9
[2024-09-14] MEDS: predniSONE 10 MG TAB PO SCH (08:38)
[2024-09-14 08:55] LABS: African American GFR (CKD) 25 (>60 ml/min/1.73 sqM); Anion Gap 11 mmol/L; Blood Urea Nitrogen 53 mg/dL (7-17); Calcium 9.6 mg/dL (8.4-10.2); Carbon Dioxide 26 mmol/L (22-30); Chloride 101 mmol/L (98-107); Glucose 125 mg/dL (74-99); Magnesium 1.8 mg/dL (1.6-2.3); Non-African American GFR(CKD) 22 (>60 ml/min/1.73 sqM); Phosphorus 4.6 mg/dL (2.5-4.5); Potassium 4.4 mmol/L (3.5-5.1); Sodium 138 mmol/L (137-145)
[2024-09-14 11:26] LABS: Glucose,Whole Blood 178 mg/dL (70-110)
[2024-09-14 11:31] VITALS: BP 173/80; PULSE 61; RESP 16
--- NOTE | 2024-09-14 13:30 | P.DS ---
Providers Date of admission: 09/03/24 22:55 Expected date of discharge: 09/14/24 Attending physician: MD GARY Leblanc MD Consults: 09/03/24 22:52 Consult Physician Routine Consulting Provider: [facility] Consult Reason/Comments: nstemi, recent stent, back pain Do you want consulting provider notified?: Yes 09/05/24 09:24 Consult Physician Routine Consulting Provider: Tamie Krishnan Consult Reason/Comments: surgical site infection? Do you want consulting provider notified?: Yes 09/08/24 09:50 Consult Physician Routine Consulting Provider: Fede Gallagher Consult Reason/Comments: [place] Do you want consulting provider notified?: Yes Primary care physician: Derick Strong MD Assessment: Principal diagnosis: 64-year-old female with colon cancer (stage IV, s/p colectomy 08/2021, following with Dr. Morales, currently on ), DVT (on Eliquis), and hiatal hernia repair on 08/25/2024 and a history of uterine cancer and ascites. Is presenting to the emergency department complaining of mid back pain. Recent heart cath with stent placement on 08/30/2024. In the ED she underwent extensive evaluation. BP 149/82, HR 64, RR 16, T 98.2, 97% on RA. CBC, Coag panel, CMP significant for WBC 19.8, APTT 34.8, BUN 28, Cr 1.06, glu 144, AST 88, ALT 48, alk phos 929. Trop 0.16, 0.142, 0.148. SNP 883. Lipase 44. CXR done in the ER showed bibasilar infiltrates likely subsegmental atelectasis. Thoracic aorta CT showed ascending thoracic aortic aneurysm of 4.1 cm; no descending thoracic or abdominal aortic aneurysm evident; no aortic dissection evident; large fluidlike collection with some air in the anterior abdominal wall has enlarged following surgery when comparing to the presurgical image. EKG done in the ER showed heart rate of 66, evidence of a left bundle branch block; QTc 438; negative for Sgarbossa's criteria. Patient started on heparin drip and IV Zosyn and vancomycin. General surgery and cardiology was consulted. Cardiology consulted, amiodarone discontinued due to transaminitis. Surgery consulted, recommended no surgical intervention. Heparin drip switched back to Eliquis. ID consulted due to low grade fevers and leukocytosis, she underwent IR aspiration of seroma. Cultures were negative and antibiotics were discontinued. Noted to have worsening renal function on 09/07 along with worsening metabolic acidosis. Nephrology consulted, Renal US no hydro with hypoechoic lesion mid L kidney (seen since 06/2024), bladder scan negative, started on bicarb infusion. Urine eosinophils 2%, concerns for acute interstitial nephritis, started on Prednisone. 09/12: Cr 3.44. fasting blood glucose of 131. Cr on 09/12 noted to be 3.39. Reports she is making urine 09/13: Patient seen and examined at bedside No acute overnight events. Her creatinine continues to improve trending down from 2.9-2.72, nephrology following, encouraged p.o. hydration Objective - Exam General: Nontoxic, no distress, appears at stated age, female, pleasant Derm: Warm, dry, right chest port site clean, dry, intact Head: Atraumatic, normocephalic, symmetric Eyes: EOMI, no lid lag, anicteric sclera Mouth: No lip lesion, mucus membranes moist Cardiovascular: S1S2 reg, no murmur Lungs: CTA bilateral, no rhonchi, no rales, no accessory muscle use Ext: No gross muscle atrophy, no edema, no contractures Neuro: no focal neuro deficits Psych: Alert, oriented, appropriate affect abd: soft, nontedner Assessment and Plan Assessment: Acute kidney injury suspect due to Vancomycin induced acute interstitial nephritis: Renal US no hydro, hypoechoic lesion mid L kidney (seen since 06/2024). Urine eosinophils 2%, concerns for acute interstitial nephritis. Bladder scan negative. Hold ACEi. Awaiting for renal function to pleatau which I suspect to be on the upcoming days. renally adjust medications. continue sliding scale insulin for steroid induced hyperglyemia kidney function continues to improve daily, nephrology is on board, will defer to them when patient can be discharged from their standpoint. Prednisone decreased to 30mg daily for AIN Sepsis suspect secondary to surgical site infection: Status post aspiration of seroma. Cultures negative. Antibiotics discontinued. ID on board. drain was d/zarina. Recent abdominal hernia surgery [place] [facility] [place]STEM[place], likely type II CAD status post recent stent placement on 08/30/2024: Aspirin 81 mg PO QD, Brilinta 90 mg PO BID, metoprolol 25 mg PO BID. Acute transaminitis: Known metastatic lesions in the liver. Hold amiodarone and statin History of DVT: Continue Eliquis 5 mg PO BID. 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 DVT Prophylaxis: Eliquis 5 mg PO BID. GI Prophylaxis: Protonix PO Designated medical POA if patient is not able to make medical decisions for themselves: (1) Abdominal wall seroma Current Visit: Yes Status: Acute Code(s): S30.1XXA - CONTUSION OF ABDOMINAL WALL, INITIAL ENCOUNTER SNOMED Code(s): 916761569 Objective - Vital Signs Vital signs: Vital Signs Temp 97.9 F 09/13/24 08:42 Pulse 60 09/13/24 13:20 Resp 16 09/13/24 13:20 BP 173/76 09/13/24 11:29 Pulse Ox 94 L 09/13/24 11:29 FiO2 Intake & Output 09/12/24 09/13/24 09/13/24 18:59 06:59 18:59 Intake Total 1558 118 Balance 1558 118 Weight 83.2 kg Intake: Oral 1558 118 Other: Voiding Method Toilet Toilet Toilet # Voids 1 2 1 # Bowel Movements 1 - Labs CBC & Chem 7: 09/10/24 09:21 09/13/24 06:45 Labs: Abnormal Lab Results - Last 24 Hours (Table) 09/12/24 09/12/24 09/12/24 Range/Units 16:19 20:20 23:07 BUN 53 H (7-17) mg/dL Creatinine 2.92 H (0.52-1.04) mg/dL Glucose 195 H (74-99) mg/dL POC Glucose (mg/dL) 304 H 298 H (70-110) mg/dL 09/13/24 09/13/24 Range/Units 06:45 11:21 BUN 54 H (7-17) mg/dL Creatinine 2.72 H (0.52-1.04) mg/dL Glucose (74-99) mg/dL POC Glucose (mg/dL) 130 H (70-110) mg/dL patient stable for discharge Follow-up in 1 to 2 weeks with primary care physician Patient Condition at Discharge: Fair Plan - Discharge Summary Discharge Rx Participant: Yes New Discharge Prescriptions: New hydrALAZINE HCL [Apresoline] 25 mg PO Q8H PRN tab PRN Reason: Blood Pressure - High INSULIN ASPART (NovoLOG) [NovoLOG (formulary)] 0 unit SQ ACHS each predniSONE 30 mg PO DAILY tab Pantoprazole [Protonix] 40 mg PO AC-BRKFST tab Ticagrelor [Brilinta] 90 mg PO BID tab carvediloL [Coreg*] 12.5 mg PO BID-W/MEALS tab Apixaban [Eliquis] 5 mg PO BID tab amLODIPine [Norvasc] 5 mg PO BID tab Acetaminophen Tab [Tylenol] 650 mg PO Q6HR PRN tab PRN Reason: Mild Pain Or Fever > 100.5 Continue Cyanocobalamin [Vitamin B-12] 1,000 mcg PO DAILY Calcium Carbonate [Calcium] 600 mg PO DAILY Apixaban [Eliquis] 5 mg PO DIRECTED Zinc Gluconate [Zinc] 50 mg PO DAILY Acetaminophen 500 - 1,000 mg PO TID PRN MDD 3,000mg PRN Reason: Pain Magnesium Oxide [Mag-Ox] 400 mg PO DAILY Aspirin 81 mg PO DAILY 5 Days #5 tab Amiodarone [Cordarone] 200 mg PO DAILY 30 Days #30 tab Losartan [Cozaar] 50 mg PO BID 30 Days #60 tab Atorvastatin [Lipitor] 80 mg PO DAILY 30 Days #30 tab Ascorbic Acid [Vitamin C] 1,000 mg PO DAILY Cyclobenzaprine [Flexeril] 5 mg PO TID PRN PRN Reason: Pain Ferrous Sulfate [Iron (65 MG Elemental)] 325 mg PO DAILY traMADol HCL 50 mg PO Q6H PRN PRN Reason: Pain Ticagrelor [Brilinta] 90 mg PO BID 30 Days #60 tab Metoprolol Tartrate [Lopressor] 25 mg PO BID 30 Days #60 tab Discharge Medication List Calcium Carbonate [Calcium] 600 mg PO DAILY 12/05/21 [History] Cyanocobalamin [Vitamin B-12] 1,000 mcg PO DAILY 12/05/21 [History] Apixaban [Eliquis] 5 mg PO DIRECTED 08/31/22 [History] Ascorbic Acid [Vitamin C] 1,000 mg PO DAILY 11/13/22 [History] Zinc Gluconate [Zinc] 50 mg PO DAILY 11/13/22 [History] Acetaminophen 500 - 1,000 mg PO TID PRN MDD 3,000mg 08/27/24 [History] Cyclobenzaprine [Flexeril] 5 mg PO TID PRN 08/27/24 [History] Ferrous Sulfate [Iron (65 MG Elemental)] 325 mg PO DAILY 08/27/24 [History] Magnesium Oxide [Mag-Ox] 400 mg PO DAILY 08/27/24 [History] traMADol HCL 50 mg PO Q6H PRN 08/27/24 [History] Amiodarone [Cordarone] 200 mg PO DAILY 30 Days #30 tab 09/01/24 [Rx] Aspirin 81 mg PO DAILY 5 Days #5 tab 09/01/24 [Rx] Atorvastatin [Lipitor] 80 mg PO DAILY 30 Days #30 tab 09/01/24 [Rx] Losartan [Cozaar] 50 mg PO BID 30 Days #60 tab 09/01/24 [Rx] Metoprolol Tartrate [Lopressor] 25 mg PO BID 30 Days #60 tab 09/01/24 [Rx] Ticagrelor [Brilinta] 90 mg PO BID 30 Days #60 tab 09/01/24 [Rx] Acetaminophen Tab [Tylenol] 650 mg PO Q6HR PRN tab 09/14/24 [Rx] Apixaban [Eliquis] 5 mg PO BID tab 09/14/24 [Rx] INSULIN ASPART (NovoLOG) [NovoLOG (formulary)] 0 unit SQ ACHS each 09/14/24 [R x] Pantoprazole [Protonix] 40 mg PO AC-BRKFST tab 09/14/24 [Rx] Ticagrelor [Brilinta] 90 mg PO BID tab 09/14/24 [Rx] amLODIPine [Norvasc] 5 mg PO BID tab 09/14/24 [Rx] carvediloL [Coreg*] 12.5 mg PO BID-W/MEALS tab 09/14/24 [Rx] hydrALAZINE HCL [Apresoline] 25 mg PO Q8H PRN tab 09/14/24 [Rx] predniSONE 30 mg PO DAILY tab 09/14/24 [Rx] Follow up Appointment(s)/Referral(s): Yahir Bosch MD [Medical Doctor] - 1 Week Wan Justice MD [STAFF PHYSICIAN] - 2 Weeks Derick Strong MD [Primary Care Provider] - 1-2 days Discharge Disposition: HOME SELF-CARE
[2024-09-14] MEDS ORDERED: carvediloL 12.5 MG TAB PO SCH (17:30)
--- NOTE | 2024-09-15 11:30 | P.PN ---
Subjective patient is seen for follow-up for acute kidney injury. No significant complaints today. S/p IV fluids. Blood pressure staying high from prednisone Started on prednisone on 09/10/2024 for possible acute interstitial nephritis as urine eosinophils were positive. Serum creatinine has improved and is 2.2 today. Objective - Vital Signs Vital signs: Vital Signs Temp 97.9 F 09/14/24 08:34 Pulse 61 09/14/24 11:31 Resp 16 09/14/24 11:31 BP 173/80 09/14/24 11:31 Pulse Ox 96 09/14/24 11:31 FiO2 Intake & Output 09/14/24 09/15/24 09/15/24 18:59 06:59 18:59 Intake Total 356 Balance 356 Intake: Oral 356 Other: Voiding Method Toilet # Voids 1 - Exam patient is awake, comfortable, no acute distress. Examination of the heart S1 and S2 Examination of the lungs bilateral breath sounds are heard Abdomen is soft nontender Examination lower extremity shows no significant edema DEPOSIT CLERK exam grossly intact - Labs CBC & Chem 7: 09/14/24 06:10 09/14/24 06:10 Assessment and Plan Assessment: 1. Acute kidney injury secondary to ATN secondary to severe sepsis. Creatinine 1.0 on admission and is improved to 2.2 today. No proteinuria noted on UA. Urine eosinophols are positive suggesting possible underlying acute interstitial nephritis. Started on prednisone on 09/10/2024. Kidney ultrasound showed atrophic left kidney with no evidence of hydronephrosis. 2. Abdominal wall seroma status post drain placed by IR. s/p antibiotics. ID following. 3. Benign hypertension. Blood pressure is uncontrolled from steroids 4. Colon cancer status post left colectomy with metastatic disease to the live r. 5. Metabolic acidosis secondary to acute kidney injury. 6. Coronary disease with stent placement August 30, 2024. 7. Status post recent hernia surgery at [facility] [place]. Plan: continue prednisone for possible underlying acute interstitial nephritis. Decrease dose to 30 mg as renal function continues to improve. Continue Norvasc, increased dose Can change metoprolol to Coreg as blood pressure remains elevated. Stable for discharge from nephrology standpoint. Follow-up as outpatient in 1 week Continue to avoid nephrotoxic agents
--- NOTE | 2024-09-15 12:46 | P.PN ---
Subjective Progress Note Date: 09/14/24 Principal diagnosis: Reason for follow-up is fever leukocytosis question of abdominal wall seroma/infected seroma Patient is a 64-year-old female with a past medical history significant for colon cancer uterine cancer in this patient who recently did have a open repair of the incisional hernia at the [facility] patient was just discharged from hospital after a week stay and presented back to the hospital concerning or pain to the mid/upper back, patient did have a fever elevated white count CT did show evidence of large anterior abdominal fluid collection with air prompting this consultation. On today's evaluation that is 09/14/2024, Patient is afebrile this morning patient denies having any chest pain shortness of breath or cough, the patient is currently on room air, patient denies any abdominal pain no diarrhea no nausea no vomiting, patient mention feeling better. Patient white count is 23.1, creatinine is 2.29 culture has been negative Objective - Vital Signs Vital signs: Vital Signs Temp 97.9 F 09/14/24 08:34 Pulse 61 09/14/24 11:31 Resp 16 09/14/24 11:31 BP 173/80 09/14/24 11:31 Pulse Ox 96 09/14/24 11:31 FiO2 Intake & Output 09/13/24 09/14/24 09/14/24 18:59 06:59 18:59 Intake Total 658 356 Balance 658 356 Weight 78.6 kg Intake: Oral 658 356 Other: Voiding Method Toilet Toilet Toilet # Voids 1 1 1 - Exam GENERAL DESCRIPTION: An elderly female up in the chair in no distress RESPIRATORY SYSTEM: Unlabored breathing , decreased breath sounds at bases HEART: S1 S2 regular rate and rhythm , ABDOMEN: Soft , no tenderness EXTREMITIES: No edema feet - Labs CBC & Chem 7: 09/14/24 06:10 09/14/24 06:10 Labs: Abnormal Lab Results - Last 24 Hours (Table) 09/13/24 09/13/24 09/14/24 Range/Units 16:45 19:58 06:10 WBC 23.1 H (3.8-10.6) k/uL RBC 3.64 L (3.80-5.40) m/uL Hgb 10.0 L (11.4-16.0) gm/dL Hct 32.3 L (34.0-46.0) % MCHC 30.9 L (31.0-37.0) g/dL RDW 19.5 H (11.5-15.5) % Plt Count 622 H (150-450) k/uL Neutrophils # 19.1 H (1.3-7.7) k/uL BUN (7-17) mg/dL Creatinine (0.52-1.04) mg/dL Glucose (74-99) mg/dL POC Glucose (mg/dL) 309 H 300 H (70-110) mg/dL Phosphorus (2.5-4.5) mg/dL C-Reactive Protein (<1.0) mg/dL 09/14/24 09/14/24 09/14/24 Range/Units 06:10 06:10 06:18 WBC (3.8-10.6) k/uL RBC (3.80-5.40) m/uL Hgb (11.4-16.0) gm/dL Hct (34.0-46.0) % MCHC (31.0-37.0) g/dL RDW (11.5-15.5) % Plt Count (150-450) k/uL Neutrophils # (1.3-7.7) k/uL BUN 53 H (7-17) mg/dL Creatinine 2.29 H (0.52-1.04) mg/dL Glucose 125 H (74-99) mg/dL POC Glucose (mg/dL) 122 H (70-110) mg/dL Phosphorus 4.6 H (2.5-4.5) mg/dL C-Reactive Protein 5.3 H (<1.0) mg/dL 09/14/24 Range/Units 11:26 WBC (3.8-10.6) k/uL RBC (3.80-5.40) m/uL Hgb (11.4-16.0) gm/dL Hct (34.0-46.0) % MCHC (31.0-37.0) g/dL RDW (11.5-15.5) % Plt Count (150-450) k/uL Neutrophils # (1.3-7.7) k/uL BUN (7-17) mg/dL Creatinine (0.52-1.04) mg/dL Glucose (74-99) mg/dL POC Glucose (mg/dL) 178 H (70-110) mg/dL Phosphorus (2.5-4.5) mg/dL C-Reactive Protein (<1.0) mg/dL Assessment and Plan (1) Fever Status: Acute Code(s): R50.9 - FEVER, UNSPECIFIED SNOMED Code(s): 708423570 (2) Leukocytosis Status: Acute Code(s): D72.829 - ELEVATED WHITE BLOOD CELL COUNT, UNSPECIFIED SNOMED Code(s): 480295485 (3) Abdominal wall seroma Status: Acute Code(s): S30.1XXA - CONTUSION OF ABDOMINAL WALL, INITIAL ENCOUNTER SNOMED Code(s): 514419723 Plan: 1patient who recently did have a abdominal incisional hernia repair just got discharged from [facility] now presented to hospital mostly with the pain to the upper back below the shoulder blade in this patient who did have a thoracic CT which did shows evidence of fluid collection to the anterior abdominal wall with some air did have low-grade fever elevated white count with concern for possible seroma/infected seroma however no evidence of any cellulitis or tenderness on examination 2-patient is status post IR drainage of the fluid collection which is mostly bloody possibly indicating hematoma rather than infection, culture have been negative so far 3-patient remains to be afebrile noticed to have worsening of the white count possibly steroid related as no evidence of any worsening infection clinically patient with no fever and mention overall feeling better hence recommending no antibiotics on discharge recommend to repeat his CBC in 3 to 4 days post discharge to make sure it is trending down Dictation was produced using [employer] software. please excuse any grammatical, word or spelling errors. Time with Patient: Less than 30
== END 2024-09-14 14:33 | disposition home or self-care (01) | DRG 919 ==
LOC: EC 19:13 → 3SCARD 22:55
PROVIDERS: ADMIT Internal Medicine; ATTEND Internal Medicine
PROC: 0J9830Z Drainage of Abdomen Subcutaneous Tissue and Fascia with Drainage Device, Percutaneous Approach (ICD-10-PCS; principal; 2024-09-06)
DX: K91.872 Postprocedural seroma of a digestive system organ or structure following a digestive system procedure (principal); A41.9 Sepsis, unspecified organism; I21.A1 Myocardial infarction type 2; N17.0 Acute kidney failure with tubular necrosis; R65.20 Severe sepsis without septic shock; R18.8 Other ascites; C18.7 Malignant neoplasm of sigmoid colon; J98.11 Atelectasis; C78.7 Secondary malignant neoplasm of liver and intrahepatic bile duct; E87.20 Acidosis, unspecified; N10 Acute pyelonephritis; I47.20 Ventricular tachycardia, unspecified; I27.20 Pulmonary hypertension, unspecified; I10 Essential (primary) hypertension; I25.10 Atherosclerotic heart disease of native coronary artery without angina pectoris; I44.7 Left bundle-branch block, unspecified; I71.21 Aneurysm of the ascending aorta, without rupture; D50.9 Iron deficiency anemia, unspecified; T36.8X5A Adverse effect of other systemic antibiotics, initial encounter; Z79.01 Long term (current) use of anticoagulants; Z95.5 Presence of coronary angioplasty implant and graft; Z92.21 Personal history of antineoplastic chemotherapy; Z86.718 Personal history of other venous thrombosis and embolism; Z85.42 Personal history of malignant neoplasm of other parts of uterus; Z85.038 Personal history of other malignant neoplasm of large intestine; Z87.891 Personal history of nicotine dependence; Z79.02 Long term (current) use of antithrombotics/antiplatelets; Z79.82 Long term (current) use of aspirin; Z79.899 Other long term (current) drug therapy; Z90.49 Acquired absence of other specified parts of digestive tract; Z79.620 Long term (current) use of immunosuppressive biologic
CPT/HCPCS: 10030; 36415; 71046; 71275; 74174; 76705; 76770; 76942; 80048; 80053; 80202; 81001; 82565; 83036; 83605; 83690; 83735; 83880; 84100; 84484; 85025; 85027; 85610; 85730; 86140; 87040; 87070; 87205; 89050; 93005; 94760; 96361; 96365; 96367; 96368; 96375; 99285

== ENCOUNTER → 2024-12-13 | Outpatient (CLI) | payer MEDICARE ==
[2024-12-13 13:05] LABS: African American GFR (CKD) 77 (>60 ml/min/1.73 sqM); Blood Urea Nitrogen 18 mg/dL (7-17); Non-African American GFR(CKD) 66 (>60 ml/min/1.73 sqM)
--- NOTE | 2024-12-13 15:35 | CT ---
EXAMINATION TYPE: CT ChestAbdPelvis w con DATE OF EXAM: 12/13/2024 COMPARISON: 04/06/2024 CLINICAL INDICATION: Female, 64 years old with history of C18.7 MALIGNANT NEOPLASM OF SIGMOID COLON CT DLP: 1067.9 mGycm Automated exposure control for dose reduction was used. CONTRAST: CT scan of the chest, abdomen and pelvis is performed with Oral Contrast and with IV Contrast, patien t injected with 100 mL of Isovue 300. FINDINGS: CT chest: There is a Mediport catheter on the right unchanged in position. There is no suspicious lung mass or nodule. There is no abnormal airspace/consolidative density or abnormal interstitial density. There is no pleural effusion, pleural thickening or pneumothorax. There is a 4 cm dilatation of the ascending thoracic aorta. No focal osseous lesions are seen. CT abdomen and pelvis: Gallbladder is normal without distention, pericholecystic fluid, wall thickening or gallstone. There is no biliary ductal dilatation. There has been mild interval enlargement of the ill-defined hypodensities within the liver the larges t is within the left lobe of the liver. The findings are consistent with metastatic disease. There is no solid renal mass or hydronephrosis. There is no retroperitoneal adenopathy or hemorrhage in the caliber of the abdominal aorta is normal. The bowel loops are normal in caliber and there is no dilatation or obstruction. No inflammatory alston ges identified in the bowel wall and mesentery. Small amount of free fluid adjacent to the liver edge and within the cul-de-sac in the pelvis. No free intraperitoneal air. There is no pelvic mass or adenopathy. There is no free fluid within the pelvis. No focal osseous lesions are seen. Soft tissue the abdomen and pelvis are normal. IMPRESSION: 1. 4.1 cm dilatation of the ascending thoracic aorta. 2. No evidence of metastatic disease within the thorax. 3. Metastatic disease scattered throughout the liver. There appears to be mild interval worsening wit h probable enlargement of the lesions. 4. Small amount of ascites adjacent to the liver edge and within the cul-de-sac pelvis [facility], , 12/13/2024 3:32 PM
== END | disposition home or self-care (01) ==
LOC: RADCTMAIN 11:51
PROVIDERS: ATTEND Internal Medicine Hematology & Oncology
DX: C18.7 Malignant neoplasm of sigmoid colon (principal); C54.9 Malignant neoplasm of corpus uteri, unspecified; I80.10 Phlebitis and thrombophlebitis of unspecified femoral vein; I77.810 Thoracic aortic ectasia; C78.7 Secondary malignant neoplasm of liver and intrahepatic bile duct; R18.8 Other ascites
CPT/HCPCS: 82565; 84520; 71260; 74177; 36415; Q9967

== ENCOUNTER 2025-01-06 04:17 | Inpatient (IN) | payer MEDICARE ==
[2025-01-06 04:56] LABS: Basophils % (A) 0 %; Eosinophils # (A) 0.1 k/uL (0-0.7); Eosinophils % (A) 1 %; HCT 33.8 % (34.0-46.0); HGB 10.9 gm/dL (11.4-16.0); Hypochromasia Moderate; Lymphocytes # (A) 1.4 k/uL (1.0-4.8); Lymphocytes % (A) 10 %; MCH 26.8 pg (25.0-35.0); MCHC 32.2 g/dL (31.0-37.0); MCV 83.4 fL (80.0-100.0); Mean Platelet Volume 7.8; Monocytes # (A) 0.7 k/uL (0-1.0); Monocytes % (A) 5 %; Neutrophils # (A) 12.1 k/uL (1.3-7.7); Neutrophils % (A) 83 %; Platelet Count 282 k/uL (150-450); RBC 4.05 m/uL (3.80-5.40); RDW 15.8 % (11.5-15.5); WBC 14.6 k/uL (3.8-10.6)
[2025-01-06 05:13] LABS: ALT 45 U/L (4-34); African American GFR (CKD) 80 (>60 ml/min/1.73 sqM); Albumin 3.2 g/dL (3.5-5.0); Anion Gap 13 mmol/L; Blood Urea Nitrogen 19 mg/dL (7-17); Calcium 7.8 mg/dL (8.4-10.2); Carbon Dioxide 18 mmol/L (22-30); Chloride 105 mmol/L (98-107); Glucose 132 mg/dL (74-99); Non-African American GFR(CKD) 70 (>60 ml/min/1.73 sqM); Sodium 136 mmol/L (137-145); Total Protein 6.6 g/dL (6.3-8.2)
[2025-01-06 05:21] LABS: AST 68 U/L (14-36); Alkaline Phosphatase 1426 U/L (38-126); Potassium 3.8 mmol/L (3.5-5.1)
[2025-01-06 05:22] LABS: NT-Pro-B-Type Natriuretic Pept 3690 pg/mL
[2025-01-06 05:33] LABS: INR 1.6 (<1.2); Partial Thromboplastin Time 36.3 sec (22.0-30.0); Prothrombin Time 16.5 sec (10.0-12.5)
--- NOTE | 2025-01-06 06:12 | ED ---
Weakness HPI - General Chief complaint: Weakness Stated complaint: transfer Time Seen by Provider: 01/06/25 04:23 Source: patient Mode of arrival: EMS - History of Present Illness Initial comments: This patient is 64-year-old woman who arrives here as transfer from [facility], where she had gone this evening after she was too weak to get up to get to the bathroom. Patient states that she started feeling progressively more weak approximately 3 days prior. She has had decreased oral intake. The patient denies focal weakness. When family was not able to get her up EMS was called. The patient had workup at the other hospital including CT scan of the abdomen that showed reportedly left lower lobe pneumonia, degree of constipation. The patient also had CT of the brain which was negative for acute pathology. MD Complaint: generalized weakness Onset/Timin -: days(s) Location: generalized Severity: moderate Consistency: constant Improves with: none Worsens with: none Associated Symptoms: nausea/vomiting - Related Data Home Medications Medication Instructions Recorded Confirmed Ferrous Sulfate [Iron (65 MG 325 mg PO DAILY 08/27/24 01/06/25 Elemental)] Empagliflozin [Jardiance] 10 mg PO DAILY 01/06/25 01/06/25 Losartan [Cozaar] 25 mg PO DAILY 01/06/25 01/06/25 amLODIPine [Norvasc] 5 mg PO DAILY 01/06/25 01/06/25 Previous Rx's Medication Instructions Recorded Atorvastatin [Lipitor] 80 mg PO DAILY 30 Days #30 tab 09/01/24 Metoprolol Tartrate [Lopressor] 25 mg PO BID 30 Days #60 tab 09/01/24 Apixaban [Eliquis] 5 mg PO BID tab 09/14/24 Ticagrelor [Brilinta] 90 mg PO BID tab 09/14/24 Acetaminophen Tab [Tylenol] 650 mg PO Q6HR PRN tab 01/09/25 Oseltamivir [Tamiflu] 75 mg PO Q12HR 2 Days #4 cap 01/09/25 Pantoprazole [Protonix] 40 mg PO AC-BRKFST 10 Days #10 tab 01/09/25 cefuroxime axetiL [Ceftin] 500 mg PO BID 3 Days #6 tab 01/09/25 predniSONE 10 mg PO DIRECTED #9 tab 01/09/25 Allergies Allergy/AdvReac Type Severity Reaction Status Date / Time No Known Allergies Allergy Verified 01/06/25 12:39 Review of Systems ROS Statement: Those systems with pertinent positive or pertinent negative responses have been documented in the HPI. ROS Other: All systems not noted in ROS Statement are negative. Constitutional: Reports: weakness. Denies: fever, chills Respiratory: Reports: cough Cardiovascular: Denies: chest pain Gastrointestinal: Reports: nausea. Denies: abdominal pain, vomiting, diarrhea Genitourinary: Denies: dysuria, hematuria Musculoskeletal: Denies: back pain Skin: Denies: rash Neurological: Denies: headache, weakness, numbness Psychiatric: Denies: anxiety Past Medical History Past Medical History: Cancer, Deep Vein Thrombosis (DVT), Musculoskeletal Disorder Additional Past Medical History / Comment(s): kidney infection, colon cancer, dvt in leg, ascites, uterine CA History of Any Multi-Drug Resistant Organisms: None Reported Past Surgical History: Bowel Resection, Heart Catheterization With Stent, Hernia Repair, Orthopedic Surgery Additional Past Surgical History / Comment(s): allison wrist surgery 2009, colon r esection 09/08, multi paracentesis Past Anesthesia/Blood Transfusion Reactions: No Reported Reaction Date of Last Stent Placement:: 09/11 Past Psychological History: No Psychological Hx Reported Smoking Status: Former smoker Past Alcohol Use History: Rare Past Drug Use History: None Reported - Past Family History Father Family Medical History: Cancer Mother Family Medical History: Vascular Disorder General Exam General appearance: alert, in no apparent distress Head exam: Present: atraumatic, normocephalic Eye exam: Present: normal appearance. Absent: scleral icterus, conjunctival injection ENT exam: Present: mucous membranes dry Neck exam: Present: normal inspection, full ROM. Absent: tenderness Respiratory exam: Present: normal lung sounds bilaterally. Absent: respiratory distress, wheezes, rales, rhonchi, stridor, accessory muscle use Cardiovascular Exam: Present: regular rate, normal rhythm, normal heart sounds. Absent: systolic murmur, diastolic murmur, rubs, gallop GI/Abdominal exam: Present: soft. Absent: distended, tenderness, guarding, rebound, rigid, mass Extremities exam: Present: normal inspection, normal capillary refill. Absent: pedal edema, calf tenderness Back exam: Present: normal inspection. Absent: CVA tenderness (R), CVA tenderness (L) Neurological exam: Present: alert Skin exam: Present: warm, dry, intact, normal color. Absent: rash Course Vital Signs 01/06/25 01/06/25 01/06/25 04:18 05:33 06:06 Temperature 97.8 F 97.6 F Pulse Rate 63 66 61 Respiratory 18 22 18 Rate Blood Pressure 94/64 90/56 94/58 O2 Sat by Pulse 99 98 97 Oximetry 01/06/25 01/06/25 01/06/25 10:30 14:36 18:12 Temperature 97.6 F Pulse Rate 76 61 61 Respiratory 17 18 15 Rate Blood Pressure 104/63 105/59 118/62 O2 Sat by Pulse 98 96 97 Oximetry 01/06/25 01/06/25 01/07/25 19:25 22:41 01:00 Temperature Pulse Rate 55 L 60 51 L Respiratory 13 17 16 Rate Blood Pressure 115/57 122/60 112/56 O2 Sat by Pulse 99 99 97 Oximetry 01/07/25 01/07/25 01/07/25 03:03 06:00 08:21 Temperature Pulse Rate 48 L 47 L 56 L Respiratory 19 17 20 Rate Blood Pressure 107/54 133/66 154/74 O2 Sat by Pulse 95 93 L 96 Oximetry 01/07/25 01/07/25 01/07/25 09:00 10:40 12:00 Temperature Pulse Rate 54 L 44 L 84 Respiratory 20 20 20 Rate Blood Pressure 154/74 146/65 142/95 O2 Sat by Pulse 96 96 97 Oximetry 01/07/25 01/07/25 13:42 16:44 Temperature 97.8 F Pulse Rate 62 61 Respiratory 20 19 Rate Blood Pressure 125/59 136/77 O2 Sat by Pulse 97 96 Oximetry EKG Findings - EKG Results: EKG: interpreted by ERMD, sinus rhythm (Rate 74 bpm) - Blocks, [place], Hypertrophy, ST Abn: AV and intraventricular conduction: left bundle branch block (fixed/intermittent, complete/incomplete) Medical Decision Making - Medical Decision Making Was pt. sent in by a medical professional or institution (, PA, COMMUNITY HEALTH NURSING DIRECTOR, urgent care, hospital, or snf...) When possible be specific @ -[No] Did you speak to anyone other than the patient for history (EMS, parent, family, police, friend...)? What history was obtained from this source @ -[No] Did you review nursing and triage notes (agree or disagree)? Why? @ -[I reviewed and agree with nursing and triage notes] Were old charts reviewed (outside hosp., previous admission, EMS record, old EKG, old radiological studies, urgent care reports/EKG's, snf records)? Report findings @ -[No old charts were reviewed] Differential Diagnosis (chest pain, altered mental status, abdominal pain women, abdominal pain men, vaginal bleeding, weakness, fever, dyspnea, syncope, headache, dizziness, GI bleed, back pain, seizure, CVA, palpatations, mental health, musculoskeletal)? @ -[Differential Weakness: Hypoglycemia, shock, sepsis, hyponatremia, anemia, infection, MT, ETOH, adverse medicine reaction, overdose, stroke, this is not meant to be an all-inclusive list. EKG interpreted by me (3pts min.). @ -[As above] X-rays interpreted by me (1pt min.). @ -[None done] CT interpreted by me (1pt min.). @ -[None done] U/S interpreted by me (1pt. min.). @ -[None done] What testing was considered but not performed or refused? (CT, X-rays, U/S, labs)? Why? @ -[None] What meds were considered but not given or refused? Why? @ -[None] Did you discuss the management of the patient with other professionals (professionals i.e. , PA, COMMUNITY HEALTH NURSING DIRECTOR, lab, RT, psych nurse, licensed clinical social worker, quality coordinator, teacher, driver's license reviewing officer, window caser)? Give summary @ -[Case discussed with admitting physician and treatment recommendations are incorporated Was smoking cessation discussed for >3mins.? @ -[No] Was critical care preformed (if so, how long)? @ -[No] Were there social determinants of health that impacted care today? How? (Homelessness, low income, unemployed, alcoholism, drug addiction, transportation, low edu. Level, literacy, decrease access to med. care, intermediate, rehab)? @ -[No] Was there de-escalation of care discussed even if they declined (Discuss DNR or withdrawal of care, Hospice)? DNR status @ -[No] What co-morbidities impacted this encounter? (DM, HTN, Smoking, COPD, CAD, Cancer, CVA, ARF, Chemo, Hep., AIDS, mental health diagnosis, sleep apnea, morbid obesity)? @ -[None] Was patient admitted / discharged? Hospital course, mention meds given and route, prescriptions, significant lab abnormalities, going to OR and other pertinent info. @ -[Patient is 64-year-old woman transferred here to have further treatment for pneumonia and generalized weakness. Undiagnosed new problem with uncertain prognosis? @ -[No] Drug Therapy requiring intensive monitoring for toxicity (Heparin, Nitro, Insulin, Cardizem)? @ -[No] Were any procedures done? @ -[No] Diagnosis/symptom? @ -[Acute generalized weakness Pneumonia Acute, or Chronic, or Acute on Chronic? @ -[Acute Uncomplicated (without systemic symptoms) or Complicated (systemic symptoms)? @ -[Uncomplicated Side effects of treatment? @ -[No] Exacerbation, Progression, or Severe Exacerbation? @ -[No] Poses a threat to life or bodily function? How? (Chest pain, USA, MT, pneumonia, PE, COPD, DKA, ARF, appy, cholecystitis, CVA, Diverticulitis, Homicidal, Suici antwon, threat to staff... and all critical care pts) @ -[No] All treatments are based on ideal body weight as in ED triage - Lab Data Result diagrams: 01/08/25 03:36 01/08/25 03:36 Lab Results 01/06/25 01/06/25 01/06/25 Range/Units 04:46 04:46 04:46 WBC 14.6 H (3.8-10.6) k/uL RBC 4.05 (3.80-5.40) m/uL Hgb 10.9 L (11.4-16.0) gm/dL Hct 33.8 L (34.0-46.0) % MCV 83.4 (80.0-100.0) fL MCH 26.8 (25.0-35.0) pg MCHC 32.2 (31.0-37.0) g/dL RDW 15.8 H (11.5-15.5) % Plt Count 282 (150-450) k/uL MPV 7.8 Neutrophils % 83 % Lymphocytes % 10 % Monocytes % 5 % Eosinophils % 1 % Basophils % 0 % Neutrophils # 12.1 H (1.3-7.7) k/uL Lymphocytes # 1.4 (1.0-4.8) k/uL Monocytes # 0.7 (0-1.0) k/uL Eosinophils # 0.1 (0-0.7) k/uL Basophils # 0.0 (0-0.2) k/uL Hypochromasia Moderate PT 16.5 H (10.0-12.5) sec INR 1.6 H (<1.2) APTT 36.3 H (22.0-30.0) sec Sodium 136 L (137-145) mmol/L Potassium 3.8 (3.5-5.1) mmol/L Chloride 105 (98-107) mmol/L Carbon Dioxide 18 L (22-30) mmol/L Anion Gap 13 mmol/L BUN 19 H (7-17) mg/dL Creatinine 0.88 (0.52-1.04) mg/dL Est GFR (CKD-EPI)AfAm 80 (>60 ml/min/1.73 sqM) Est GFR (CKD-EPI)NonAf 70 (>60 ml/min/1.73 sqM) Glucose 132 H (74-99) mg/dL Plasma Lactic Acid Ivan (0.7-2.0) mmol/L Calcium 7.8 L (8.4-10.2) mg/dL Total Bilirubin 1.0 (0.2-1.3) mg/dL AST 68 H (14-36) U/L ALT 45 H (4-34) U/L Alkaline Phosphatase 1426 H (38-126) U/L Troponin I (0.000-0.034) ng/mL NT-Pro-B Natriuret Pep 3690 pg/mL Total Protein 6.6 (6.3-8.2) g/dL Albumin 3.2 L (3.5-5.0) g/dL Procalcitonin (0.02-0.50) ng/mL 01/06/25 01/06/25 01/06/25 Range/Units 04:46 04:46 04:46 WBC (3.8-10.6) k/uL RBC (3.80-5.40) m/uL Hgb (11.4-16.0) gm/dL Hct (34.0-46.0) % MCV (80.0-100.0) fL MCH (25.0-35.0) pg MCHC (31.0-37.0) g/dL RDW (11.5-15.5) % Plt Count (150-450) k/uL MPV Neutrophils % % Lymphocytes % % Monocytes % % Eosinophils % % Basophils % % Neutrophils # (1.3-7.7) k/uL Lymphocytes # (1.0-4.8) k/uL Monocytes # (0-1.0) k/uL Eosinophils # (0-0.7) k/uL Basophils # (0-0.2) k/uL Hypochromasia PT (10.0-12.5) sec INR (<1.2) APTT (22.0-30.0) sec Sodium (137-145) mmol/L Potassium (3.5-5.1) mmol/L Chloride (98-107) mmol/L Carbon Dioxide (22-30) mmol/L Anion Gap mmol/L BUN (7-17) mg/dL Creatinine (0.52-1.04) mg/dL Est GFR (CKD-EPI)AfAm (>60 ml/min/1.73 sqM) Est GFR (CKD-EPI)NonAf (>60 ml/min/1.73 sqM) Glucose (74-99) mg/dL Plasma Lactic Acid Ivan 1.2 (0.7-2.0) mmol/L Calcium (8.4-10.2) mg/dL Total Bilirubin (0.2-1.3) mg/dL AST (14-36) U/L ALT (4-34) U/L Alkaline Phosphatase (38-126) U/L Troponin I 0.090 H* (0.000-0.034) ng/mL NT-Pro-B Natriuret Pep pg/mL Total Protein (6.3-8.2) g/dL Albumin (3.5-5.0) g/dL Procalcitonin 3.93 H (0.02-0.50) ng/mL Disposition Clinical Impression: Pneumonia, Generalized weakness Disposition: ADMITTED IP TO THIS HOSP Condition: Fair Is patient prescribed a controlled substance at d/c from ED?: No
[2025-01-06] MEDS ORDERED: PNEUMONIA PROTOCOL UTILIZED 1 EACH MISC PO PRN (06:19)
[2025-01-06] MEDS ORDERED: traMADol 50 MG TAB PO PRN (06:23)
[2025-01-06] MEDS ORDERED: ACETAMINOPHEN TAB 325 MG TAB PO PRN (06:23)
[2025-01-06] MEDS ORDERED: hydrALAZINE HCL 25 MG TAB PO PRN (06:23)
[2025-01-06] MEDS ORDERED: CYCLOBENZAPRINE 5 MG TAB PO PRN (06:23)
--- NOTE | 2025-01-06 06:34 | XR ---
EXAM: XR Chest, 1 View CLINICAL HISTORY: ITS.REASON XR Reason: Weakness TECHNIQUE: Frontal view of the chest. COMPARISON: X-ray dated 09/03/2024. FINDINGS: Lungs: Enlargement of the bilateral hilum. No consolidation. Pleural space: Unremarkable. No pneumothorax. Heart: Unremarkable. No cardiomegaly. Mediastinum: Unremarkable. Normal mediastinal contour. Bones/joints: Degenerative changes are seen within the spine and shoulders. No acute fracture. Vasculature: Calcifications overlie a ectatic aorta. Tubes, lines and devices: Right-sided central venous catheter is in place with the tip overlying the expected location of the mid superior vena cava. IMPRESSION: 1. Bilateral hilar enlargement, underlying lymphadenopathy is not excluded. 2. Otherwise no acute findings seen within the chest.
--- NOTE | 2025-01-06 09:54 | P.HPIM ---
History of Present Illness H&P Date: 01/06/25 History of present illness; patient 64-year-old lady with past medical history significant for DVT, colon cancer who presented to the ER as a transfer from [facility] for generalized weakness. Patient stated that she was all right 3 days back when she started noticing that she was getting weak. Patient was complaining of decreased appetite. Patient was complaining of lethargy and dizziness. Patient stated that all her family was also sick with similar symptoms. Patient had a hard time ambulating. Patient was not even able to get up to use the toilet. There was no complaint of fever or chills. There is no complaint of chest pain or shortness of breath. Patient denies any weakness of any extremity. Because of this generalized weakness, patient was taken to [facility] where patient CT chest and abdomin pelvis done which showed patient to have pneumonia of left lower lobe. Patient also CT brain done which was negative for any acute internal pathology. Patient was transferred to [facility] Initial lab work done in the ER showed WBC 14.6, hemoglobin 10.1, platelet count 282, sodium 133, potassium 3.8, BUN 19, creatinine 0.88, glucose 132, AST 68, ALT 45, pro BNP 3690, troponin 0.090 EKG done in the ER showed heart rate of 74, no ST segment elevation or depression seen, no T-wave inversions seen. Chest x-ray done in the ER showed bilateral hilar enlargement, underlying lymphadenopathy is not excluded. Patient admitted to internal medicine service REVIEW OF SYSTEMS: CONSTITUTIONAL: As mentioned above . HEENT: No recent visual problems or hearing problems. Denied any sore throat. CARDIOVASCULAR: As mentioned above PULMONARY: As mentioned above GASTROINTESTINAL: No diarrhea, no nausea, no vomiting, no abdominal pain. NEUROLOGICAL: No headaches, no weakness, no numbness. HEMATOLOGICAL: Denies any bleeding or petechiae. GENITOURINARY: Denies any burning micturition, frequency, or urgency. MUSCULOSKELETAL/RHEUMATOLOGICAL: Denies any joint pain, swelling, or any muscle pain. ENDOCRINE: Denies any polyuria or polydipsia. The rest of the 14-point review of systems is negative. PHYSICAL EXAMINATION: GENERAL: The patient is alert and oriented x3, not in any acute distress. Well developed, well nourished. HEENT: Pupils are round and equally reacting to light. EOMI. No scleral icterus. No conjunctival pallor. Normocephalic, atraumatic. No pharyngeal erythema. No thyromegaly. CARDIOVASCULAR: S1 and S2 present. No murmurs, rubs, or gallops. PULMONARY: Chest is clear to auscultation, no wheezing or crackles. ABDOMEN: Soft, nontender, nondistended, normoactive bowel sounds. No palpable organomegaly. MUSCULOSKELETAL: No joint swelling or deformity. EXTREMITIES: No cyanosis, clubbing, or pedal edema. NEUROLOGICAL: Gross neurological examination did not reveal any focal deficits. SKIN: No rashes. Assessment and plan Acute hypoxic respiratory failure Bacterial pneumonia Influenza A Acute transaminitis Elevated troponin History of colon cancer Monitor vital signs Monitor CBC Monitor CMP Trend troponin Ordered Pro-Santi Ordered sputum cultures Start IV Rocephin Start azithromycin Resume aspirin, Lipitor Resume Eliquis Resume amiodarone Hold losartan, Norvasc as blood pressure is normotensive Consult cardiology consult PT and OT Labs and medication were reviewed.. Continue same treatment. Continue with symptomatic treatment. Resume home medication. Monitor labs and vitals. DVT and GI prophylaxis. Further recommendations as per clinical course of the patient Dictation was produced using [email or web address] dictation software. please excuse any grammatical, word or spelling errors. Past Medical History Past Medical History: Cancer, Deep Vein Thrombosis (DVT), Musculoskeletal Disorder Additional Past Medical History / Comment(s): kidney infection, colon cancer, dvt in leg, ascites, uterine CA History of Any Multi-Drug Resistant Organisms: None Reported Past Surgical History: Bowel Resection, Heart Catheterization With Stent, Hernia Repair, Orthopedic Surgery Additional Past Surgical History / Comment(s): allison wrist surgery 2009, colon resection 09/08, multi paracentesis Past Anesthesia/Blood Transfusion Reactions: No Reported Reaction Date of Last Stent Placement:: 09/11 Past Psychological History: No Psychological Hx Reported Smoking Status: Former smoker Past Alcohol Use History: Rare Past Drug Use History: None Reported - Past Family History Father Family Medical History: Cancer Mother Family Medical History: Vascular Disorder Medications and Allergies Home Medications Medication Instructions Recorded Confirmed Type Calcium Carbonate [Calcium] 600 mg PO DAILY 12/05/21 09/04/24 History Cyanocobalamin [Vitamin B-12] 1,000 mcg PO DAILY 12/05/21 09/04/24 History Apixaban [Eliquis] 5 mg PO DIRECTED 08/31/22 09/04/24 History Ascorbic Acid [Vitamin C] 1,000 mg PO DAILY 11/13/22 09/04/24 History Zinc Gluconate [Zinc] 50 mg PO DAILY 11/13/22 09/04/24 History Acetaminophen 500 - 1,000 mg PO TID PRN MDD 08/27/24 09/04/24 History 3,000mg Cyclobenzaprine [Flexeril] 5 mg PO TID PRN 08/27/24 09/04/24 History Ferrous Sulfate [Iron (65 MG 325 mg PO DAILY 08/27/24 09/04/24 History Elemental)] Magnesium Oxide [Mag-Ox] 400 mg PO DAILY 08/27/24 09/04/24 History traMADol HCL 50 mg PO Q6H PRN 08/27/24 09/04/24 History Amiodarone [Cordarone] 200 mg PO DAILY 30 Days #30 tab 09/01/24 09/04/24 Rx Aspirin 81 mg PO DAILY 5 Days #5 tab 09/01/24 09/04/24 Rx Atorvastatin [Lipitor] 80 mg PO DAILY 30 Days #30 tab 09/01/24 09/04/24 Rx Losartan [Cozaar] 50 mg PO BID 30 Days #60 tab 09/01/24 09/04/24 Rx Metoprolol Tartrate [Lopressor] 25 mg PO BID 30 Days #60 tab 09/01/24 09/04/24 Rx Ticagrelor [Brilinta] 90 mg PO BID 30 Days #60 tab 09/01/24 09/04/24 Rx Acetaminophen Tab [Tylenol] 650 mg PO Q6HR PRN tab 09/14/24 Rx Apixaban [Eliquis] 5 mg PO BID tab 09/14/24 Rx INSULIN ASPART (NovoLOG) [NovoLOG 0 unit SQ ACHS each 09/14/24 Rx (formulary)] Pantoprazole [Protonix] 40 mg PO AC-BRKFST tab 09/14/24 Rx Ticagrelor [Brilinta] 90 mg PO BID tab 09/14/24 Rx amLODIPine [Norvasc] 5 mg PO BID #60 tab 09/14/24 Rx hydrALAZINE HCL [Apresoline] 25 mg PO Q8H PRN tab 09/14/24 Rx predniSONE 30 mg PO DAILY tab 09/14/24 Rx Allergies Allergy/AdvReac Type Severity Reaction Status Date / Time No Known Allergies Allergy Verified 01/06/25 08:22 Physical Exam Vitals: Vital Signs Temp Pulse Resp BP Pulse Ox 01/06/25 06:06 61 18 94/58 97 01/06/25 05:33 97.6 F 66 22 90/56 98 01/06/25 04:18 97.8 F 63 18 94/64 99 Intake and Output 01/05/25 01/06/25 01/06/25 22:59 06:59 14:59 Other: Weight 74.843 kg Results CBC & Chem 7: 01/06/25 04:46 01/06/25 04:46 Labs: Abnormal Lab Results - Last 24 Hours (Table) 01/06/25 01/06/25 01/06/25 Range/Units 04:46 04:46 04:46 WBC 14.6 H (3.8-10.6) k/uL Hgb 10.9 L (11.4-16.0) gm/dL Hct 33.8 L (34.0-46.0) % RDW 15.8 H (11.5-15.5) % Neutrophils # 12.1 H (1.3-7.7) k/uL PT 16.5 H (10.0-12.5) sec INR 1.6 H (<1.2) APTT 36.3 H (22.0-30.0) sec Sodium 136 L (137-145) mmol/L Carbon Dioxide 18 L (22-30) mmol/L BUN 19 H (7-17) mg/dL Glucose 132 H (74-99) mg/dL Calcium 7.8 L (8.4-10.2) mg/dL AST 68 H (14-36) U/L ALT 45 H (4-34) U/L Alkaline Phosphatase 1426 H (38-126) U/L Troponin I (0.000-0.034) ng/mL Albumin 3.2 L (3.5-5.0) g/dL 01/06/25 Range/Units 04:46 WBC (3.8-10.6) k/uL Hgb (11.4-16.0) gm/dL Hct (34.0-46.0) % RDW (11.5-15.5) % Neutrophils # (1.3-7.7) k/uL PT (10.0-12.5) sec INR (<1.2) APTT (22.0-30.0) sec Sodium (137-145) mmol/L Carbon Dioxide (22-30) mmol/L BUN (7-17) mg/dL Glucose (74-99) mg/dL Calcium (8.4-10.2) mg/dL AST (14-36) U/L ALT (4-34) U/L Alkaline Phosphatase (38-126) U/L Troponin I 0.090 H* (0.000-0.034) ng/mL Albumin (3.5-5.0) g/dL
[2025-01-06] MEDS: ASPIRIN 81 MG PO SCH (10:51)
[2025-01-06] MEDS: predniSONE 10 MG TAB PO SCH (10:52)
[2025-01-06] MEDS: PANTOPRAZOLE 40 MG TABLET PO SCH (10:52)
[2025-01-06] MEDS: ATORVASTATIN 80 MG TAB PO SCH (10:52)
[2025-01-06] MEDS: AMIODARONE 200 MG TAB PO SCH (10:52)
[2025-01-06] MEDS: FERROUS SULFATE 325 MG TAB PO SCH (10:52)
[2025-01-06] MEDS: APIXABAN 5 MG TAB PO SCH (10:53)
[2025-01-06] MEDS: TICAGRELOR 90 MG TAB PO SCH (10:53)
[2025-01-06] MEDS: SODIUM CHLORIDE 0.9% 1,000 ML IV STA (10:53)
[2025-01-06] MEDS: MAGNESIUM OXIDE 400 MG TAB PO SCH (10:53)
[2025-01-06] MEDS: METOPROLOL TARTRATE 25 MG TAB PO SCH (10:53)
[2025-01-06] MEDS: SODIUM CHLORIDE 0.9% 500 ML 500 ML IV STA (10:54)
[2025-01-06] MEDS: LOSARTAN 50 MG TAB PO SCH (11:11)
[2025-01-06] MEDS: amLODIPine 5 MG TAB PO SCH (11:12)
--- NOTE | 2025-01-06 15:31 | P.CNPUL ---
History of Present Illness Consult date: 01/06/25 Requesting physician: Rohit Pineda Reason for consult: abnormal CXR/CT Chief complaint: Generalized weakness History of present illness: This is a 64-year-old female patient with a known history of uterine cancer, colon cancer with metastasis to the liver with previous chemotherapy and subsequ ent lead placed on Keytruda. She had not been on anything since July 2024 she had had 5 hernia surgeries and cardiac stent placements. She was here for nearly the whole month of August for multiple issues. We had not been consulted at that time. Yesterday she had been in her chair nearly 24 hours with the inability to get up due to generalized weakness. When her family could not help her up they called EMS. She was initially seen at [facility] and was found to have influenza A and suspected urinary tract infection and subsequently transferred here for further workup. We are consulted for possible left lower lobe pneumonia. Chest x-ray here reveals bilateral hilar enlargement, underlying lymphadenopathy is not excluded. No consolidation. No pneumothorax. No cardiomegaly. White count 14.6. Hemoglobin 10.9. Platelets 282. INR 1.6. Sodium 136. Potassium 3.8. Bicarb 18. BUN 19. Creatinine 0.88. Glucose 132. AST 68. ALT 45. Alk phos 1426. Troponin 0.090. proBNP 3690. Procalcitonin is pending. She is seen today in consultation in the emergency department. She is currently resting on a stretcher. She is awake and alert. She is quite weak. He denies any shortness of breath, cough or congestion. She is maintaining O2 saturations in the mid 90s on 2 L/min per nasal cannula. She has been afebrile. Hemodynamically stable. Review of Systems REVIEW OF SYSTEMS: CONSTITUTIONAL: Positive for generalized weakness. Denies any recent significant weight loss or weight gain. EYES: Denies change in vision. EARS, NOSE, MOUTH, THROAT: Denies headaches, denies sore throat. CARDIOVASCULAR: Denies chest pain, palpitations or syncopal episodes. RESPIRATORY: Denies shortness of breath, cough, congestion or hemoptysis. GASTROINTESTINAL: Denies change in appetite, denies abdominal pain GENITOURINARY: Denies hematuria, denies infections. MUSKULOSKELETAL: Denies pain, denies swelling. INTEGUMENTARY: Denies rash, denies eczema. NEUROLOGICAL: Denies recent memory loss, no recent seizure activity. PSYCHIATRIC: Denies anxiety, denies depression. HEMATOLOGIC/LYMPHATIC: Denies anemia, denies enlarged lymph nodes. Past Medical History Past Medical History: Cancer, Deep Vein Thrombosis (DVT), Musculoskeletal Disorder Additional Past Medical History / Comment(s): kidney infection, colon cancer, dvt in leg, ascites, uterine CA History of Any Multi-Drug Resistant Organisms: None Reported Past Surgical History: Bowel Resection, Heart Catheterization With Stent, Hernia Repair, Orthopedic Surgery Additional Past Surgical History / Comment(s): allison wrist surgery 2009, colon resection 09/08, multi paracentesis Past Anesthesia/Blood Transfusion Reactions: No Reported Reaction Date of Last Stent Placement:: 09/11 Past Psychological History: No Psychological Hx Reported Smoking Status: Former smoker Past Alcohol Use History: Rare Past Drug Use History: None Reported - Past Family History Father Family Medical History: Cancer Mother Family Medical History: Vascular Disorder Medications and Allergies Home Medications Medication Instructions Recorded Confirmed Type Ferrous Sulfate [Iron (65 MG 325 mg PO DAILY 08/27/24 01/06/25 History Elemental)] Aspirin 81 mg PO DAILY 5 Days #5 tab 09/01/24 01/06/25 Rx Atorvastatin [Lipitor] 80 mg PO DAILY 30 Days #30 tab 09/01/24 01/06/25 Rx Metoprolol Tartrate [Lopressor] 25 mg PO BID 30 Days #60 tab 09/01/24 01/06/25 Rx Apixaban [Eliquis] 5 mg PO BID tab 09/14/24 01/06/25 Rx Ticagrelor [Brilinta] 90 mg PO BID tab 09/14/24 01/06/25 Rx Empagliflozin [Jardiance] 10 mg PO DAILY 01/06/25 01/06/25 History Losartan [Cozaar] 25 mg PO DAILY 01/06/25 01/06/25 History Rosuvastatin [Crestor] 20 mg PO DAILY 01/06/25 01/06/25 History amLODIPine [Norvasc] 5 mg PO DAILY 01/06/25 01/06/25 History Allergies Allergy/AdvReac Type Severity Reaction Status Date / Time No Known Allergies Allergy Verified 01/06/25 12:39 Physical Exam Vitals: Vital Signs Temp Pulse Resp BP Pulse Ox 01/06/25 14:36 61 18 105/59 96 01/06/25 10:30 97.6 F 76 17 104/63 98 01/06/25 06:06 61 18 94/58 97 01/06/25 05:33 97.6 F 66 22 90/56 98 01/06/25 04:18 97.8 F 63 18 94/64 99 Intake and Output 01/06/25 01/06/25 01/06/25 06:59 14:59 22:59 Other: Weight 74.843 kg GENERAL EXAM: Alert, very weak 64-year-old female, on 2 L nasal cannula, fairly comfortable in no apparent distress. HEAD: Normocephalic. EYES: Normal reaction of pupils, equal size. NOSE: Clear with pink turbinates. THROAT: No erythema or exudates. NECK: No masses, no JVD. CHEST: No chest wall deformity. LUNGS: Equal air entry with no crackles, wheeze, rhonchi or dullness. CVS: S1 and S2 normal with no audible murmur, regular rhythm. ABDOMEN: No hepatosplenomegaly, normal bowel sounds, no guarding or rigidity. SPINE: No scoliosis or deformity SKIN: No rashes CENTRAL NERVOUS SYSTEM: No focal deficits, tone is normal in all 4 extremities. EXTREMITIES: There is no peripheral edema. No clubbing, no cyanosis. Per ipheral pulses are intact. Results - Laboratory Findings CBC and BMP: 01/06/25 04:46 01/06/25 04:46 PT/INR, D-dimer PT 16.5 sec (10.0-12.5) H 01/06/25 04:46 INR 1.6 (<1.2) H 01/06/25 04:46 Abnormal lab findings: Abnormal Labs 01/06/25 01/06/25 01/06/25 04:46 04:46 04:46 WBC 14.6 H Hgb 10.9 L Hct 33.8 L RDW 15.8 H Neutrophils # 12.1 H PT 16.5 H INR 1.6 H APTT 36.3 H Sodium 136 L Carbon Dioxide 18 L BUN 19 H Glucose 132 H Calcium 7.8 L AST 68 H ALT 45 H Alkaline Phosphatase 1426 H Troponin I Albumin 3.2 L 01/06/25 04:46 WBC Hgb Hct RDW Neutrophils # PT INR APTT Sodium Carbon Dioxide BUN Glucose Calcium AST ALT Alkaline Phosphatase Troponin I 0.090 H* Albumin - Diagnostic Findings Chest x-ray: image reviewed Assessment and Plan Assessment: Acute influenza A infection with generalized weakness and fatigue. Unable to get herself up out of a chair Suspected urinary tract infection, culture pending Leukocytosis secondary to above Transaminitis Troponin leak Acute hypoxic respiratory failure with possible early pneumonia, congestive heart failure, bilateral hilar lymphadenopathy History of colon cancer with liver metastasis, last chemotherapy in July 2024 was subsequently on Keytruda Prolonged hospitalization here in August 2024 with multiple hernia repairs Coronary artery disease with previous stent placement Hypertension Hyperlipidemia History of DVT, maintained on Eliquis Poor overall functional performance based on the above-mentioned multiple comorbidities Plan: The patient was seen and evaluated Chest x-ray, labs and medications reviewed Imaging, labs reviewed from [facility] Continue ceftriaxone and azithromycin Procalcitonin pending Anticoagulated with Eliquis Continue prednisone Titrate the FiO2 as tolerated Follow-up chest x-ray in a.m. We will continue to follow and make further recommendations based on her clinical status I have personally seen and examined the patient, performed the documentation and the assessment and plan as written. Number of minutes spent on the visit: 20 Dictation was produced using [employer] dictation software. Please excuse any grammatical, word or spelling errors. Time with Patient: Greater than 30
--- NOTE | 2025-01-06 17:48 | P.CONS ---
History of Present Illness - Reason for Consult Consult date: 01/06/25 colon cancer Requesting physician: Rohit Pineda - Chief Complaint weakness - History of Present Illness Patient is a 64 year old female who was admitted to [facility] with progressive weakness and abdominal pain in 2020. She was found to have severe anemia, was transferred to [facility], CT Scan on 08/20/21 revealed Large area of sigmoid thickening measuring 13.5X4.9 cm and a fluid collection in front of colon measuring 4.6X5.4 cm C/O abscess. She had Colonoscopy by Dr Jonny Cuenca revealed sigmoid mass, biopsy revealed adenocarcinoma. The patient was taken to OR on 08/22/21 where she was found to have abscess and 9 cm Grase II perforated Adenocarcinoma involving small bowell (T4b), all [address] LN were negative, all margins of resection negative. Underwent adjuvant chemo. -Called pt in for review of CT CAP 04/15/22-yellow level critical called-focal dilatation of the intrahepatic biliary tree, markedly distended endometrial cavity with rt ov cyst increased in size from 2.9 to 3.6, severe fecal loading in the colon. 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 The patient was evaluated by Dr Camarillo, started on Neoadjuvant Chemotherapy > received Carboplatinum+Taxol X 3 > fatigue. C/O abdominal distention, was seen by Dr Camarillo, Liver Bx advised. Liver Bx negative. NO+BSO by Dr Camarillo at [facility] on 07/09/23, T2N0 Endometrial Ca, Bx of liver lesion: metastatic Colon cancer. PET Scan: Liver mets, Gaurdant 360: MSI- H. Patient was started on keytruda, and completed cycle 9 on 07/06/24. Patient then requested to stop treatment for chemo holiday. She had restaging CT-CAP on 12/13/24, which did not report any new disease, but liver lesions are reported as possibly slightly larger but, no new lesions. Recommended resuming Keytruda but pt does not want to resume at this time. She and her family will talk with Dr. Morales about other treatment options when she sees him in upcoming f/u. Patient presented to [facility] with complaints of weakness, cough and fever. Patient had CT brain which was negative for acute processes. CT chest abdomen pelvis showing constipation and left lower lobe pneumonia. Patient also tested positive for influenza A. Patient was started on IV antibiotics and was transferred to [facility] for further management. Labs reviewed, troponin mildly elevated at 0.09, BNP 3690. Bilirubin 1.0, AST 68, ALP 45, ALP 1426. Creatinine 0.88, GFR 70. WBC 14.6, hemoglobin 10.9, platelets 282,000. Review of Systems 10 point ROS is negative except as stated in the HPI Past Medical History Past Medical History: Cancer, Deep Vein Thrombosis (DVT), Musculoskeletal Disorder Additional Past Medical History / Comment(s): kidney infection, colon cancer, dvt in leg, ascites, uterine CA History of Any Multi-Drug Resistant Organisms: None Reported Past Surgical History: Bowel Resection, Heart Catheterization With Stent, Hernia Repair, Orthopedic Surgery Additional Past Surgical History / Comment(s): allison wrist surgery 2009, colon resection 09/08, multi paracentesis Past Anesthesia/Blood Transfusion Reactions: No Reported Reaction Date of Last Stent Placement:: 09/11 Past Psychological History: No Psychological Hx Reported Smoking Status: Former smoker Past Alcohol Use History: Rare Past Drug Use History: None Reported - Past Family History Father Family Medical History: Cancer Mother Family Medical History: Vascular Disorder Medications and Allergies Home Medications Medication Instructions Recorded Confirmed Type Ferrous Sulfate [Iron (65 MG 325 mg PO DAILY 08/27/24 01/06/25 History Elemental)] Aspirin 81 mg PO DAILY 5 Days #5 tab 09/01/24 01/06/25 Rx Atorvastatin [Lipitor] 80 mg PO DAILY 30 Days #30 tab 09/01/24 01/06/25 Rx Metoprolol Tartrate [Lopressor] 25 mg PO BID 30 Days #60 tab 09/01/24 01/06/25 Rx Apixaban [Eliquis] 5 mg PO BID tab 09/14/24 01/06/25 Rx Ticagrelor [Brilinta] 90 mg PO BID tab 09/14/24 01/06/25 Rx Empagliflozin [Jardiance] 10 mg PO DAILY 01/06/25 01/06/25 History Losartan [Cozaar] 25 mg PO DAILY 01/06/25 01/06/25 History Rosuvastatin [Crestor] 20 mg PO DAILY 01/06/25 01/06/25 History amLODIPine [Norvasc] 5 mg PO DAILY 01/06/25 01/06/25 History Allergies Allergy/AdvReac Type Severity Reaction Status Date / Time No Known Allergies Allergy Verified 01/06/25 12:39 Physical Exam Vitals: Vital Signs Temp Pulse Resp BP Pulse Ox 01/06/25 06:06 61 18 94/58 97 01/06/25 05:33 97.6 F 66 22 90/56 98 01/06/25 04:18 97.8 F 63 18 94/64 99 Intake and Output 01/05/25 01/06/25 01/06/25 22:59 06:59 14:59 Other: Weight 74.843 kg - Constitutional General appearance: average body habitus, no acute distress - EENT Eyes: anicteric sclerae, EOMI ENT: hearing grossly normal - Respiratory breathing is even and unlabored - Cardiovascular well perfused - Integumentary Integumentary: no cyanotic, no jaundiced - Musculoskeletal Musculoskeletal: generalized weakness - Psychiatric Psychiatric: A&O x's 3 Results CBC & Chem 7: 01/06/25 04:46 01/06/25 04:46 Labs: Abnormal Lab Results - Last 24 Hours (Table) 01/06/25 01/06/25 01/06/25 Range/Units 04:46 04:46 04:46 WBC 14.6 H (3.8-10.6) k/uL Hgb 10.9 L (11.4-16.0) gm/dL Hct 33.8 L (34.0-46.0) % RDW 15.8 H (11.5-15.5) % Neutrophils # 12.1 H (1.3-7.7) k/uL PT 16.5 H (10.0-12.5) sec INR 1.6 H (<1.2) APTT 36.3 H (22.0-30.0) sec Sodium 136 L (137-145) mmol/L Carbon Dioxide 18 L (22-30) mmol/L BUN 19 H (7-17) mg/dL Glucose 132 H (74-99) mg/dL Calcium 7.8 L (8.4-10.2) mg/dL AST 68 H (14-36) U/L ALT 45 H (4-34) U/L Alkaline Phosphatase 1426 H (38-126) U/L Troponin I (0.000-0.034) ng/mL Albumin 3.2 L (3.5-5.0) g/dL 01/06/25 Range/Units 04:46 WBC (3.8-10.6) k/uL Hgb (11.4-16.0) gm/dL Hct (34.0-46.0) % RDW (11.5-15.5) % Neutrophils # (1.3-7.7) k/uL PT (10.0-12.5) sec INR (<1.2) APTT (22.0-30.0) sec Sodium (137-145) mmol/L Carbon Dioxide (22-30) mmol/L BUN (7-17) mg/dL Glucose (74-99) mg/dL Calcium (8.4-10.2) mg/dL AST (14-36) U/L ALT (4-34) U/L Alkaline Phosphatase (38-126) U/L Troponin I 0.090 H* (0.000-0.034) ng/mL Albumin (3.5-5.0) g/dL Chest x-ray: report reviewed Assessment and Plan (1) Colon adenocarcinoma Current Visit: No Status: Acute Priority: High Code(s): C18.9 - MALIGNANT NEOPLASM OF COLON, UNSPECIFIED SNOMED Code(s): 779097131 Plan: Pneumonia, influenza: Presented to [facility] with complaints of weakness, cough and fever. -CT brain was negative for acute processes. CT chest abdomen pelvis showing constipation and left lower lobe pneumonia. Patient also tested positive for influenza A. -IV antibiotics started -Defer management to admitting team and pulmonology Metastatic colon adenocarcinoma -Oncology history as dicatted in the HPI -Completed cycle 9 of Keytruda on 07/06/24. Patient then requested to stop treatment for chemo holiday. She had restaging CT-CAP on 12/13/24, which did not report any new disease, but liver lesions are reported as possibly slightly larger but, no new lesions. Recommended resuming Keytruda but pt did not want to resume at that time. -CEA at last visit 14.2, previously 19.5 -Bilirubin 1.0, AST 68, ALP 45, ALP 1426. Elevated ALP has been previously noted . Continue to monitor liver function -Will plan to further discuss treatment options with Dr. Morales at her next f/u appt Doctor attests: I performed a history and physical examination of this patient, developed impression and plan of care. Discussed with dictator. I agree with dictators note, documented as a scribe.
[2025-01-06 21:19] LABS: Appearance,Urine Clear (Clear); Bacteria,Urine Many /hpf; Bilirubin,Urine Negative (Negative); Blood,Urine Small (Negative); Color,Urine Yellow; Glucose,Urine (UA) 4+ (Negative); Ketones,Urine Negative (Negative); Leukocyte Esterase,Urine Negative (Negative); Mucus,Urine Rare /hpf; Nitrite,Urine Negative (Negative); PH, Urine 5.5 (5.0-8.0); Protein,Urine Trace (Negative); RBC,Urine 3 /hpf (0-5); Specific Gravity,Urine 1.015 (1.001-1.035); Squamous Epithelial Cell,Urine 1 /hpf (0-4); Urobilinogen,Urine <2.0 mg/dL (<2.0); WBC,Urine 1 /hpf (0-5)
--- NOTE | 2025-01-07 06:29 | XR ---
EXAMINATION TYPE: XR chest 1V portable DATE OF EXAM: 01/07/2025 CLINICAL INDICATION: Female, 64 years old with history of pneumonia, progress study. TECHNIQUE: Single AP portable supine view of the chest is obtained. COMPARISON: Chest x-ray from one day earlier FINDINGS: Stable right internal jugular Mediport catheter. Background chronic emphysematous change w ithout suspicious new focal airspace opacity, pleural effusion, or pneumothorax seen bilaterally. Sta ble mild cardiomegaly end atherosclerotic thoracic aorta. Osseous structures are intact. IMPRESSION: Chronic changes and mild cardiomegaly without suspicious acute pulmonary process. No sign ificant change from one day earlier. [facility], , 01/07/2025 6:26 AM
--- NOTE | 2025-01-07 09:12 | P.PN ---
Subjective History of present illness; patient 64-year-old lady with past medical history significant for DVT, colon cancer who presented to the ER as a transfer from [facility] for generalized weakness. Patient stated that she was all right 3 days back when she started noticing that she was getting weak. Patient was complaining of decreased appetite. Patient was complaining of lethargy and dizziness. Patient stated that all her family was also sick with similar symptoms. Patient had a hard time ambulating. Patient was not even able to get up to use the toilet. There was no complaint of fever or chills. There is no complaint of chest pain or shortness of breath. Patient denies any weakness of any extremity. Because of this generalized weakness, patient was taken to [facility] where patient CT chest and abdomin pelvis done which showed patient to have pneumonia of left lower lobe. Patient also CT brain done which was negative for any acute internal pathology. Patient was transferred to [facility] Initial lab work done in the ER showed WBC 14.6, hemoglobin 10.1, platelet count 282, sodium 133, potassium 3.8, BUN 19, creatinine 0.88, glucose 132, AST 68, ALT 45, pro BNP 3690, troponin 0.090 EKG done in the ER showed heart rate of 74, no ST segment elevation or depression seen, no T-wave inversions seen. Chest x-ray done in the ER showed bilateral hilar enlargement, underlying lymphadenopathy is not excluded. Patient admitted to internal medicine service 01/07 This is a pleasant 64 years old female who was initially presented to [facility] for generalized weakness. Multiple family members also were weak and sick but they get better. Patient was transferred to this facility yesterday. She is fully awake and oriented. Confirms to me her main symptoms is generalized weakness. She denies chest pain or dyspnea but she has some dry cough. No abdominal pain or vomiting or diarrhea. There was suspicion of bowel obstruction per CT of the abdomen done at [facility] however patient denies abdominal pain or tenderness and she had normal bowel movement this morn ing. Also there was suspicion of urinary tract infection but patient denies any urinary symptoms like no dysuria, no urgency, no change in frequency with more or less urination. No suprapubic pain or tenderness test, no flank pain or tenderness. On admission patient was found to have leukocytosis with WBC about 17.6. Rest of labs reviewed from [place] which were unremarkable except for mildly elevated liver enzymes. She has CT of the chest abdomen and brain at [place], I reviewed the records. There was mention of the left lower lobe pneumonia on the CT of the chest wall CT of the abdomen and pelvis showing possible bowel obstructions and proximal dilated of the colon however clinically patient is doing better and not behaving like bowel obstruction. While CT of the brain showing some mild to moderate cerebral atrophy with no acute process. Currently patient has leukocytosis improving down to 14.6, hemoglobin 10.9, She is saturating 96% on 2 L oxygen via nasal cannula. Troponin is elevated 0.09. proBNP is elevated 3690. Procalcitonin significantly elevated at 3.9 Chest x-ray showing bilateral hilar enlargement suspicious for enlarged lymphadenopathy but no acute process Review of systems Active Medications Generic Name Dose Route Start Last Admin Trade Name Freq PRN Reason Stop Dose Admin Acetaminophen 650 mg 01/06/25 06:23 Acetaminophen Tab 325 Mg Tab PO Q6HR PRN Mild Pain or Fever > 100.5 Apixaban 5 mg 01/06/25 09:00 01/07/25 09:04 Apixaban 5 Mg Tab PO 5 mg BID LAZ Administration Protocol Aspirin 81 mg 01/06/25 09:00 01/07/25 09:05 Aspirin 81 Mg PO 81 mg DAILY LAZ Administration Atorvastatin Calcium 80 mg 01/06/25 09:00 01/07/25 09:04 Atorvastatin 80 Mg Tab PO 80 mg DAILY LAZ Administration Azithromycin 500 mg 01/07/25 12:00 Azithromycin 500 Mg Tab PO 01/08/25 12:01 DAILY@1200 LAZ Protocol Ferrous Sulfate 325 mg 01/06/25 09:00 01/07/25 09:04 Ferrous Sulfate 325 Mg Tab PO 325 mg DAILY LAZ Administration Ceftriaxone Sodium 2 gm/ 50 mls @ 100 mls/hr 01/07/25 09:00 01/07/25 09:08 Sodium Chloride IVPB 01/10/25 09:29 100 mls/hr Q24HR LAZ Administration Protocol Metoprolol Tartrate 25 mg 01/06/25 09:00 01/07/25 09:05 Metoprolol Tartrate 25 Mg Tab PO 25 mg BID LAZ Administration Miscellaneous Information 1 each 01/06/25 06:19 Pneumonia Protocol Utilized 1 Each Misc PO ONCE PRN Per Protocol Oseltamivir Phosphate 30 mg 01/07/25 09:15 Oseltamivir 30 Mg Cap PO 01/11/25 21:01 Q12HR [facility] Protocol Pantoprazole Sodium 40 mg 01/06/25 07:30 01/07/25 09:04 Pantoprazole 40 Mg Tablet PO 40 mg [id number] LAZ Administration Prednisone 30 mg 01/06/25 09:00 01/07/25 09:04 Prednisone 10 Mg Tab PO 30 mg DAILY LAZ Administration Ticagrelor 90 mg 01/06/25 09:00 01/07/25 09:05 Ticagrelor 90 Mg Tab PO 90 mg BID LAZ Administration HEENT: No recent visual problems or hearing problems. Denied any sore throat. CARDIOVASCULAR: No orthopnea, PND, no palpitations, no syncope. PULMONARY: No shortness of breath, no cough, no hemoptysis. GASTROINTESTINAL: No diarrhea, no nausea, no vomiting, no abdominal pain. Normoactive bowel sounds. NEUROLOGICAL: No headaches, no weakness, no numbness. HEMATOLOGICAL: Denies any bleeding or petechiae. GENITOURINARY: Denies any burning micturition, frequency, or urgency. MUSCULOSKELETAL/RHEUMATOLOGICAL: Denies any joint pain, swelling, or any muscle pain. ENDOCRINE: Denies any polyuria or polydipsia. Objective - Vital Signs Vital signs: Vital Signs Temp 97.6 F 01/06/25 10:30 Pulse 56 L 01/07/25 08:21 Resp 20 01/07/25 08:21 BP 154/74 01/07/25 08:21 Pulse Ox 96 01/07/25 08:21 FiO2 - Exam GENERAL: The patient is alert and oriented x3, not in any acute distress. Well developed, well nourished. HEENT: Pupils are round and equally reacting to light. EOMI. No scleral icterus. No conjunctival pallor. Normocephalic, atraumatic. No pharyngeal erythema. No thyromegaly. CARDIOVASCULAR: S1 and S2 present. No murmurs, rubs, or gallops. PULMONARY: Chest is clear to auscultation, no wheezing , no crackles. ABDOMEN: Soft, nontender, nondistended, normoactive bowel sounds. No palpable organomegaly. MUSCULOSKELETAL: No joint swelling or deformity. EXTREMITIES: No cyanosis, clubbing, or pedal edema. NEUROLOGICAL: Gross neurological examination did not reveal any focal deficits. SKIN: No rashes. no petechiae. - Labs CBC & Chem 7: 01/06/25 04:46 01/06/25 04:46 Labs: Abnormal Lab Results - Last 24 Hours (Table) 01/06/25 01/06/25 Range/Units 04:46 21:09 Procalcitonin 3.93 H (0.02-0.50) ng/mL Urine Protein Trace H (Negative) Urine Glucose (UA) 4+ H (Negative) Urine Blood Small H (Negative) Urine Bacteria Many H (None) /hpf Urine Mucus Rare H (None) /hpf Assessment and Plan Assessment: Influenza infection Possible left lower lobe pneumonia seen on CAT scan and [facility] Elevated troponin Bilateral hilar lymphadenopathy Mild anemia Mild transaminitis Plan: Continue with ceftriaxone and Zithromax Start Tamiflu Continue with prednisone 30 mg daily Continue with Eliquis. Also patient on aspirin and Brilinta. Car Wrecker will evaluate the patient as well. Cardiology and pulmonary team consult Labs and medication were reviewed.. Continue same treatment. Continue with symptomatic treatment. Resume home medication. Monitor labs and vitals. DVT and GI prophylaxis. Further recommendations as per clinical course of the patient DVT prophylaxis: S Eliquis GI Prophylaxis: P Protonix PT/OT: Pending Prognosis is guarded
[2025-01-07] MEDS: OSELTAMIVIR 30 MG CAP PO SCH (10:41)
--- NOTE | 2025-01-07 13:16 | P.PN ---
Subjective Progress Note Date: 01/07/25 This is a 64-year-old female patient with a known history of uterine cancer, colon cancer with metastasis to the liver with previous chemotherapy and subsequent lead placed on Keytruda. She had not been on anything since July 2024 she had had 5 hernia surgeries and cardiac stent placements. She was here for nearly the whole month of August for multiple issues. We had not been consulted at that time. Yesterday she had been in her chair nearly 24 hours with the inability to get up due to generalized weakness. When her family could not help her up they called EMS. She was initially seen at [facility] and was found to have influenza A and suspected urinary tract infection and subsequently transferred here for further workup. We are consulted for possible left lower lobe pneumonia. Chest x-ray here reveals bilateral hilar enlargement, underlying lymphadenopathy is not excluded. No consolidation. No pneumothorax. No cardiomegaly. White count 14.6. Hemoglobin 10.9. Platelets 282. INR 1.6. Sodium 136. Potassium 3.8. Bicarb 18. BUN 19. Creatinine 0.88. Glucose 132. AST 68. ALT 45. Alk phos 1426. Troponin 0.090. proBNP 3690. Procalcitonin is pending. She is seen today in consultation in the emergency department. She is currently resting on a stretcher. She is awake and alert. She is quite weak. He denies any shortness of breath, cough or congestion. She is maintaining O2 saturations in the mid 90s on 2 L/min per nasal cannula. She has been afebrile. Hemodynamically stable. The patient is seen today January 07, 2025 in follow-up in the emergency department. She is currently sitting up on a stretcher. Awake and alert in no acute distress. Maintaining good O2 saturations in the 90s on room air. She is afebrile. Hemodynamically stable. No new labs today. She remains on ceftriaxone and azithromycin. Remains on Tamiflu. Anticoagulated with Eliquis. Urinalysis shows 4+ glucose and many bacteria. Procalcitonin elevated at 3.93. Follow-up chest x-ray shows no acute pulmonary process. Objective - Vital Signs Vital signs: Vital Signs Temp 97.6 F 01/06/25 10:30 Pulse 84 01/07/25 12:00 Resp 20 01/07/25 12:00 BP 142/95 01/07/25 12:00 Pulse Ox 97 01/07/25 12:00 FiO2 - Exam GENERAL EXAM: Alert, weak 64-year-old female, on room air, comfortable in no apparent distress. HEAD: Normocephalic. EYES: Normal reaction of pupils, equal size. NOSE: Clear with pink turbinates. THROAT: No erythema or exudates. NECK: No masses, no JVD. CHEST: No chest wall deformity. LUNGS: Equal air entry with no crackles, wheeze, rhonchi or dullness. CVS: S1 and S2 normal with no audible murmur, regular rhythm. ABDOMEN: No hepatosplenomegaly, normal bowel sounds, no guarding or rigidity. SPINE: No scoliosis or deformity SKIN: No rashes CENTRAL NERVOUS SYSTEM: No focal deficits, tone is normal in all 4 extremities. EXTREMITIES: There is no peripheral edema. No clubbing, no cyanosis. Peripheral pulses are intact. - Labs CBC & Chem 7: 01/06/25 04:46 01/06/25 04:46 Labs: Abnormal Lab Results - Last 24 Hours (Table) 01/06/25 01/06/25 Range/Units 04:46 21:09 Procalcitonin 3.93 H (0.02-0.50) ng/mL Urine Protein Trace H (Negative) Urine Glucose (UA) 4+ H (Negative) Urine Blood Small H (Negative) Urine Bacteria Many H (None) /hpf Urine Mucus Rare H (None) /hpf Assessment and Plan Assessment: Acute influenza A infection with generalized weakness and fatigue. Unable to get herself up out of a chair Suspected urinary tract infection, culture pending Leukocytosis secondary to above Transaminitis Troponin leak Acute hypoxic respiratory failure with possible early pneumonia, congestive heart failure, bilateral hilar lymphadenopathy, recovered and on room air History of colon cancer with liver metastasis, last chemotherapy in July 2024 was subsequently on Keytruda Prolonged hospitalization here in August 2024 with multiple hernia repairs Coronary artery disease with previous stent placement Hypertension Hyperlipidemia History of DVT, maintained on Eliquis Poor overall functional performance based on the above-mentioned multiple comorbidities Plan: The patient was seen and evaluated Chest x-ray, labs and medications reviewed No acute pulmonary process Stable and on room air Procalcitonin elevated Continue ceftriaxone and azithromycin Anticoagulated with Eliquis Continue Tamiflu Continue prednisone I have personally seen and examined the patient, performed the documentation and the assessment and plan as written. Number of minutes spent on the visit: 10 Dictation was produced using [employer] dictation software. Please excuse any grammatical, word or spelling errors.
[2025-01-07] MEDS: AZITHROMYCIN 500 MG TAB PO SCH (13:43)
--- NOTE | 2025-01-07 14:09 | P.CRDCN ---
History of Present Illness Consult date: 01/07/25 Reason for Consult (text): Elevated troponin History of present illness: The patient presented to [facility] with worsening shortness of breath and symptoms of an upper respiratory infection. Patient was found to be influenza A positive as well as had a urinary tract infection. Troponin levels were elevated, therefore she was transferred to [facility] for escalation of care. Cardiology has been consulted for further evaluation. She is a known patient of Dr. Edgar. She underwent stenting in July 2024 as well as was admitted in August 2024 for with atrial fibrillation. DIAGNOSTICS: EKG shows sinus rhythm with left bundle branch block Chest x-ray shows bilateral rosa enlargement without acute process Data: WBC 14.6, hemoglobin 10.9, hematocrit 33.8, platelet 282, sodium 136, potassium 3.8, BUN 19, creatinine 0.88, AST 68, ALT 45, ALP 1426, BNP 3690, troponin 0.09 REVIEW OF SYSTEMS: No fever or chills. No cough or expectoration. No diaphoresis. Patient denies headache, dizziness, blurred vision, double vision. Patient denies any stomach discomfort. No nausea, vomiting. No hematochezia. No hematemesis. Denies any black stools or blood in his stools. Denies dysuria or hematuria. No muscle weakness or numbness. PHYSICAL EXAMINATION: This is a 64-year-old male in no apparent distress at the time of my examination. HEENT: Head is atraumatic, normocephalic. Pupils are equal, round. Sclerae anicteric. Conjunctivae are clear. Mucous membranes of the mouth are moist. Neck is supple. There is no jugular venous distention. No carotid bruit is heard. CHEST EXAMINATION: Lungs are diminished to auscultation. No chest wall tenderness is noted on palpation or with deep breathing. HEART EXAMINATION: Heart regular rate and rhythm. S1, S2 heard. No murmurs, gallops or rub. ABDOMEN: Soft, nontender. Bowel sounds are heard. No organomegaly noted. EXTREMITIES: 2+ peripheral pulses with no evidence of peripheral edema and no calf tenderness noted. NEUROLOGIC EXAMINATION: Patient is awake, alert and oriented x3. FINAL ASSESSMENT AND PLAN: Elevated troponin, flat trend Influenza A positive Urinary tract infection History of paroxysmal atrial fibrillation History of coronary artery disease History of ventricular tachycardia PLAN: Awaiting echocardiogram results Resume home medications including Brilinta and Eliquis Continue supportive treatment for influenza A Outpatient follow-up with primary business strategist Dr. Herve Alaniz am dictating on behalf of Dr Ziyad Clayton's history/physical and assessment/p rajinder. Past Medical History Past Medical History: Cancer, Deep Vein Thrombosis (DVT), Musculoskeletal Disorder Additional Past Medical History / Comment(s): kidney infection, colon cancer, dvt in leg, ascites, uterine CA History of Any Multi-Drug Resistant Organisms: None Reported Past Surgical History: Bowel Resection, Heart Catheterization With Stent, Hernia Repair, Orthopedic Surgery Additional Past Surgical History / Comment(s): allison wrist surgery 2009, colon resection 09/08, multi paracentesis Past Anesthesia/Blood Transfusion Reactions: No Reported Reaction Date of Last Stent Placement:: 09/11 Past Psychological History: No Psychological Hx Reported Smoking Status: Former smoker Past Alcohol Use History: Rare Past Drug Use History: None Reported - Past Family History Father Family Medical History: Cancer Mother Family Medical History: Vascular Disorder Medications and Allergies Home Medications Medication Instructions Recorded Confirmed Type Ferrous Sulfate [Iron (65 MG 325 mg PO DAILY 08/27/24 01/06/25 History Elemental)] Aspirin 81 mg PO DAILY 5 Days #5 tab 09/01/24 01/06/25 Rx Atorvastatin [Lipitor] 80 mg PO DAILY 30 Days #30 tab 09/01/24 01/06/25 Rx Metoprolol Tartrate [Lopressor] 25 mg PO BID 30 Days #60 tab 09/01/24 01/06/25 Rx Apixaban [Eliquis] 5 mg PO BID tab 09/14/24 01/06/25 Rx Ticagrelor [Brilinta] 90 mg PO BID tab 09/14/24 01/06/25 Rx Empagliflozin [Jardiance] 10 mg PO DAILY 01/06/25 01/06/25 History Losartan [Cozaar] 25 mg PO DAILY 01/06/25 01/06/25 History Rosuvastatin [Crestor] 20 mg PO DAILY 01/06/25 01/06/25 History amLODIPine [Norvasc] 5 mg PO DAILY 01/06/25 01/06/25 History Allergies Allergy/AdvReac Type Severity Reaction Status Date / Time No Known Allergies Allergy Verified 01/06/25 12:39 Physical Exam Vitals: Vital Signs Temp Pulse Resp BP Pulse Ox 01/07/25 09:00 54 L 20 154/74 96 01/07/25 08:21 56 L 20 154/74 96 01/07/25 06:00 47 L 17 133/66 93 L 01/07/25 03:03 48 L 19 107/54 95 01/07/25 01:00 51 L 16 112/56 97 01/06/25 22:41 60 17 122/60 99 01/06/25 19:25 55 L 13 115/57 99 01/06/25 18:12 61 15 118/62 97 01/06/25 14:36 61 18 105/59 96 01/06/25 10:30 97.6 F 76 17 104/63 98 Results 01/06/25 04:46 01/06/25 04:46 Current Medications Generic Name Dose Route Start Last Admin Trade Name Freq PRN Reason Stop Dose Admin Acetaminophen 650 mg 01/06/25 06:23 Acetaminophen Tab 325 Mg Tab PO Q6HR PRN Mild Pain or Fever > 100.5 Apixaban 5 mg 01/06/25 09:00 01/07/25 09:04 Apixaban 5 Mg Tab PO 5 mg BID LAZ Administration Protocol Atorvastatin Calcium 80 mg 01/06/25 09:00 01/07/25 09:04 Atorvastatin 80 Mg Tab PO 80 mg DAILY LAZ Administration Azithromycin 500 mg 01/07/25 12:00 Azithromycin 500 Mg Tab PO 01/08/25 12:01 DAILY@1200 [facility] Protocol Ferrous Sulfate 325 mg 01/06/25 09:00 01/07/25 09:04 Ferrous Sulfate 325 Mg Tab PO 325 mg DAILY LAZ Administration Ceftriaxone Sodium 2 gm/ 50 mls @ 100 mls/hr 01/07/25 09:00 01/07/25 09:08 Sodium Chloride IVPB 01/10/25 09:29 100 mls/hr Q24HR LAZ Administration Protocol Metoprolol Tartrate 25 mg 01/06/25 09:00 01/07/25 09:05 Metoprolol Tartrate 25 Mg Tab PO 25 mg BID LAZ Administration Miscellaneous Information 1 each 01/06/25 06:19 Pneumonia Protocol Utilized 1 Each Misc PO ONCE PRN Per Protocol Oseltamivir Phosphate 30 mg 01/07/25 09:15 Oseltamivir 30 Mg Cap PO 01/11/25 21:01 Q12HR LAZ Protocol Pantoprazole Sodium 40 mg 01/06/25 07:30 01/07/25 09:04 Pantoprazole 40 Mg Tablet PO 40 mg AC-[id number] LAZ Administration Prednisone 30 mg 01/06/25 09:00 01/07/25 09:04 Prednisone 10 Mg Tab PO 30 mg DAILY LAZ Administration Ticagrelor 90 mg 01/06/25 09:00 01/07/25 09:05 Ticagrelor 90 Mg Tab PO 90 mg BID LAZ Administration 01/06/25 04:46 01/06/25 04:46
--- NOTE | 2025-01-07 14:55 | CA ---
Transthoracic Echo Report Name: Poonam Miller Age: 64 Gender: F : 1960 Exam Date: 01/06/2025 17:01 Exam Location: [place] [facility] Ht (in): 64 Wt (lb): 165 Ordering Physician: Edilson Sosa MD Attending/Referring Phys: Sanitor Anahi Pena RDCS Procedure CPT: Indications: SHORTNESS OF BREATH Cardiac Hx: Limited for LVEF and valves Technical Quality: Good Contrast 1: Total Dose (mL): Contrast 2: Total Dose (mL): MEASUREMENTS (Male / Female) Normal Values 2D ECHO LV Diastolic Diameter PLAX 4.9 cm 4.2 - 5.9 / 3.9 - 5.3 cm LV Systolic Diameter PLAX 3.2 cm IVS Diastolic Thickness 0.9 cm 0.6 - 1.0 / 0.6 - 0.9 cm LVPW Diastolic Thickness 1.0 cm 0.6 - 1.0 / 0.6 - 0.9 cm LV Relative Wall Thickness 0.4 LV Diastolic Volume MOD BP 136.1 cm??? 67 - 155 / 56 - 104 cm??? LV Systolic Volume MOD BP 65.3 cm??? 22 - 58 / 19 - 49 cm??? LV Ejection Fraction MOD BP 52.0 % >= 55 % LV Cardiac Index MOD BP 2209.9 cm???/min???m??? LV Diastolic Volume MOD 4C 128.3 cm??? LV Systolic Volume MOD 4C 61.0 cm??? LV Ejection Fraction MOD 4C 52.5 % LV Cardiac Index MOD 4C 2101.5 cm???/min???m??? LV Diastolic Length 4C 9.3 cm LV Systolic Length 4C 7.6 cm LV Diastolic Volume MOD 2C 138.9 cm??? LV Systolic Volume MOD 2C 64.9 cm??? LV Ejection Fraction MOD 2C 53.3 % LV Cardiac Index MOD 2C 2307.5 cm???/min???m??? LV Diastolic Length 2C 9.7 cm LV Systolic Length 2C 8.3 cm DOPPLER AV Peak Velocity 257.5 cm/s AV Peak Gradient 26.5 mmHg AV Mean Velocity 178.1 cm/s AV Mean Gradient 14.2 mmHg AV Velocity Time Integral 57.1 cm AI Peak Velocity 384.6 cm/s AI Peak Gradient 59.2 mmHg AI Pressure Half Time 548.4 ms LVOT Peak Velocity 133.2 cm/s LVOT Peak Gradient 7.1 mmHg LVOT Velocity Time Integral 30.8 cm MV Peak Velocity 106.0 cm/s MV Peak Gradient 4.5 mmHg MV Mean Velocity 72.2 cm/s MV Mean Gradient 2.3 mmHg MV Velocity Time Integral 38.6 cm TR Peak Velocity 234.5 cm/s TR Peak Gradient 22.0 mmHg Right Atrial Pressure 10.0 mmHg Pulmonary Artery Systolic Pressu 32.0 mmHg Right Ventricular Systolic Press 32.0 mmHg FINDINGS Left Ventricle Left ventricular ejection fraction is estimated at 50-55 %. Mildly increased posterior wall thickness. Severely increased left ventricular diastolic volume. Moderately increased left ventricular systolic volume. Mildly decreased left ventricular ejection fraction. No obvious regional wall motion abnormalities. Right Ventricle Normal right ventricular size and function. Right ventricular systolic pressure within normal limits. Right Atrium Normal right atrial size by visual. Left Atrium Left atrial dilatation by visual. Mitral Valve Structurally normal mitral valve. Mitral valve thickened. No mitral stenosis. Trace mitral regurgitation. Aortic Valve Aortic valve not well visualized. Mild aortic stenosis, mean gradient 14mmHg. [id number] aortic regurgitation. Tricuspid Valve Structurally normal tricuspid valve. No tricuspid stenosis. Trace to mild tricuspid regurgitation. Pulmonic Valve Pulmonic valve not well visualized. Pericardium No pericardial effusion. Aorta Aortic root and proximal ascending aorta not well visualized. CONCLUSIONS indication: Shortness of breath LVH with preserved systolic function No pericardial effusion Previewed by: Dr. Ziyad Clayton MD (Electronically Signed) Final Date: 07 January 2025 14:54
[2025-01-08 09:29] LABS: Basophils # (A) 0.02 X 10*3/uL (0.00-0.10); Basophils % (A) 0.1 %; Eosinophils # (A) 0 X 10*3/uL (0.04-0.35); Eosinophils % (A) 0 %; HCT 28.7 % (37.2-46.3); HGB 8.9 g/dL (12.0-15.0); Lymphocytes # (A) 1.86 X 10*3/uL (0.90-5.00); Lymphocytes % (A) 13.8 %; MCH 26.8 pg (27.0-32.0); MCV 86.4 FL (80.0-97.0); Mean Platelet Volume 10.5 FL (9.5-12.2); Monocytes # (A) 0.83 X 10*3/uL (0.20-1.00); Monocytes % (A) 6.2 %; NRBC Per 100 WBC 0 X 10*3/uL (0.00-0.01); Neutrophils % (A) 79.4 %; Platelet Count 274 X 10*3/uL (140-440); RBC 3.32 X 10*6/uL (4.10-5.20); RDW 15.9 % (11.5-14.5); WBC 13.48 X 10*3/uL (4.50-10.00)
[2025-01-08 09:52] LABS: ALT 48 U/L (8-44); AST 87 U/L (13-35); Albumin/Globulin Ratio 0.97 Ratio (1.60-3.17); Alkaline Phosphatase 1713 U/L (41-126); BUN/Creat Ratio 28.62 Ratio (12.00-20.00); Bilirubin, Conjugated 0.21 mg/dL (0.20-0.40); Bilirubin,Unconjugated 0.09 mg/dL (0.20-1.00); Blood Urea Nitrogen 22.9 mg/dL (9.0-27.0); Calcium 8.4 mg/dL (8.7-10.3); Carbon Dioxide 19.8 mmol/L (21.6-31.8); Chloride 108 mmol/L (96-109); Globulin 3.1 g/dL (1.6-3.3); Glucose 131 mg/dL (70-110); Potassium 3.6 mmol/L (3.5-5.5); Sodium 139 mmol/L (135-145); Total Bilirubin 0.3 mg/dL (0.3-1.2); Total Protein 6.1 g/dL (6.2-8.2)
--- NOTE | 2025-01-08 11:34 | P.PN ---
Subjective History of present illness; patient 64-year-old lady with past medical history significant for DVT, colon cancer who presented to the ER as a transfer from [facility] for generalized weakness. Patient stated that she was all right 3 days back when she started noticing that she was getting weak. Patient was complaining of decreased appetite. Patient was complaining of lethargy and dizziness. Patient stated that all her family was also sick with similar symptoms. Patient had a hard time ambulating. Patient was not even able to get up to use the toilet. There was no complaint of fever or chills. There is no complaint of chest pain or shortness of breath. Patient denies any weakness of any extremity. Because of this generalized weakness, patient was taken to [facility] where patient CT chest and abdomin pelvis done which showed patient to have pneumonia of left lower lobe. Patient also CT brain done which was negative for any acute internal pathology. Patient was transferred to [facility] Initial lab work done in the ER showed WBC 14.6, hemoglobin 10.1, platelet count 282, sodium 133, potassium 3.8, BUN 19, creatinine 0.88, glucose 132, AST 68, ALT 45, pro BNP 3690, troponin 0.090 EKG done in the ER showed heart rate of 74, no ST segment elevation or depression seen, no T-wave inversions seen. Chest x-ray done in the ER showed bilateral hilar enlargement, underlying lymphadenopathy is not excluded. Patient admitted to internal medicine service 01/07 This is a pleasant 64 years old female who was initially presented to [facility] for generalized weakness. Multiple family members also were weak and sick but they get better. Patient was transferred to this facility yesterday. She is fully awake and oriented. Confirms to me her main symptoms is generalized weakness. She denies chest pain or dyspnea but she has some dry cough. No abdominal pain or vomiting or diarrhea. There was suspicion of bowel obstruction per CT of the abdomen done at [facility] however patient denies abdominal pain or tenderness and she had normal bowel movement this morn ing. Also there was suspicion of urinary tract infection but patient denies any urinary symptoms like no dysuria, no urgency, no change in frequency with more or less urination. No suprapubic pain or tenderness test, no flank pain or tenderness. On admission patient was found to have leukocytosis with WBC about 17.6. Rest of labs reviewed from [place] which were unremarkable except for mildly elevated liver enzymes. She has CT of the chest abdomen and brain at [place], I reviewed the records. There was mention of the left lower lobe pneumonia on the CT of the chest wall CT of the abdomen and pelvis showing possible bowel obstructions and proximal dilated of the colon however clinically patient is doing better and not behaving like bowel obstruction. While CT of the brain showing some mild to moderate cerebral atrophy with no acute process. Currently patient has leukocytosis improving down to 14.6, hemoglobin 10.9, She is saturating 96% on 2 L oxygen via nasal cannula. Troponin is elevated 0.09. proBNP is elevated 3690. Procalcitonin significantly elevated at 3.9 Chest x-ray showing bilateral hilar enlargement suspicious for enlarged lymphadenopathy but no acute process 01/08 Patient still feels short of breath and coughing but improving No chest pain no new complaint Still has bilateral scattered crepitation and wheezing. Patient feels tired and staying in bed most of the time Afebrile today, blood pressure is better. She is saturating 96% on 2 L oxygen She remains on Zithromax and ceftriaxone and prednisone 30 mg and Eliquis 5 mg and aspirin Active Medications Generic Name Dose Route Start Last Admin Trade Name Freq PRN Reason Stop Dose Admin Acetaminophen 650 mg 01/06/25 06:23 Acetaminophen Tab 325 Mg Tab PO Q6HR PRN Mild Pain or Fever > 100.5 Apixaban 5 mg 01/06/25 09:00 01/08/25 08:31 Apixaban 5 Mg Tab PO 5 mg BID LAZ Administration Protocol Atorvastatin Calcium 80 mg 01/06/25 09:00 01/08/25 08:31 Atorvastatin 80 Mg Tab PO 80 mg DAILY LAZ Administration Azithromycin 500 mg 01/07/25 12:00 01/07/25 13:43 Azithromycin 500 Mg Tab PO 01/08/25 12:01 500 mg DAILY@1200 LAZ Administration Protocol Ferrous Sulfate 325 mg 01/06/25 09:00 01/08/25 08:31 Ferrous Sulfate 325 Mg Tab PO 325 mg DAILY LAZ Administration Ceftriaxone Sodium 2 gm/ 50 mls @ 100 mls/hr 01/07/25 09:00 01/08/25 08:32 Sodium Chloride IVPB 01/10/25 09:29 100 mls/hr Q24HR LAZ Administration Protocol Metoprolol Tartrate 25 mg 01/06/25 09:00 01/08/25 08:31 Metoprolol Tartrate 25 Mg Tab PO 25 mg BID LAZ Administration Miscellaneous Information 1 each 01/06/25 06:19 Pneumonia Protocol Utilized 1 Each Misc PO ONCE PRN Per Protocol Oseltamivir Phosphate 30 mg 01/07/25 09:15 01/08/25 08:31 Oseltamivir 30 Mg Cap PO 01/11/25 21:01 30 mg Q12HR LAZ Administration Protocol Pantoprazole Sodium 40 mg 01/06/25 07:30 01/08/25 08:31 Pantoprazole 40 Mg Tablet PO 40 mg AC-BRKFST LAZ Administration Prednisone 30 mg 01/06/25 09:00 01/08/25 08:31 Prednisone 10 Mg Tab PO 30 mg DAILY LAZ Administration Ticagrelor 90 mg 01/06/25 09:00 01/08/25 08:31 Ticagrelor 90 Mg Tab PO 90 mg BID LAZ Administration Review of systems HEENT: No recent visual problems or hearing problems. Denied any sore throat. CARDIOVASCULAR: No orthopnea, PND, no palpitations, no syncope. PULMONARY: No shortness of breath, no cough, no hemoptysis. GASTROINTESTINAL: No diarrhea, no nausea, no vomiting, no abdominal pain. Normoactive bowel sounds. NEUROLOGICAL: No headaches, no weakness, no numbness. HEMATOLOGICAL: Denies any bleeding or petechiae. GENITOURINARY: Denies any burning micturition, frequency, or urgency. MUSCULOSKELETAL/RHEUMATOLOGICAL: Denies any joint pain, swelling, or any muscle pain. ENDOCRINE: Denies any polyuria or polydipsia. Objective - Vital Signs Vital signs: Vital Signs Temp 97.4 F L 01/08/25 08:26 Pulse 72 01/08/25 08:26 Resp 18 01/08/25 08:26 BP 149/80 01/08/25 08:26 Pulse Ox 99 01/08/25 08:26 FiO2 Intake & Output 01/07/25 01/08/25 01/08/25 18:59 06:59 18:59 Intake Total 2160 Balance 2160 Weight 65 kg Intake: Oral 2160 Other: Voiding Method Toilet # Voids 6 1 # Bowel Movements 1 - Exam GENERAL: The patient is alert and oriented x3, not in any acute distress. Well developed, well nourished. HEENT: Pupils are round and equally reacting to light. EOMI. No scleral icterus. No conjunctival pallor. Normocephalic, atraumatic. No pharyngeal erythema. No thyromegaly. CARDIOVASCULAR: S1 and S2 present. No murmurs, rubs, or gallops. PULMONARY: Chest is clear to auscultation, no wheezing , no crackles. ABDOMEN: Soft, nontender, nondistended, normoactive bowel sounds. No palpable organomegaly. MUSCULOSKELETAL: No joint swelling or deformity. EXTREMITIES: No cyanosis, clubbing, or pedal edema. NEUROLOGICAL: Gross neurological examination did not reveal any focal deficits. SKIN: No rashes. no petechiae. - Labs CBC & Chem 7: 01/08/25 03:36 01/08/25 03:36 Labs: Abnormal Lab Results - Last 24 Hours (Table) 01/08/25 01/08/25 Range/Units 03:36 03:36 WBC 13.48 H (4.50-10.00) X 10*3/uL RBC 3.32 L (4.10-5.20) X 10*6/uL Hgb 8.9 L (12.0-15.0) g/dL Hct 28.7 L (37.2-46.3) % MCH 26.8 L (27.0-32.0) pg MCHC 31.0 L (32.0-37.0) g/dL RDW 15.9 H (11.5-14.5) % Immature Gran # 0.07 H (0.00-0.04) X 10*3/uL Neutrophils # 10.70 H (1.80-7.70) X 10*3/uL Eosinophils # 0 L (0.04-0.35) X 10*3/uL Carbon Dioxide 19.8 L (21.6-31.8) mmol/L BUN/Creatinine Ratio 28.62 H (12.00-20.00) Ratio Glucose 131 H (70-110) mg/dL Calcium 8.4 L (8.7-10.3) mg/dL Unconjugated Bilirubin 0.09 L (0.20-1.00) mg/dL AST 87 H (13-35) U/L ALT 48 H (8-44) U/L Alkaline Phosphatase 1713 H (41-126) U/L Total Protein 6.1 L (6.2-8.2) g/dL Albumin 3.0 L (3.8-4.9) g/dL Albumin/Globulin Ratio 0.97 L (1.60-3.17) Ratio Assessment and Plan Assessment: Influenza infection Possible left lower lobe pneumonia seen on CAT scan and [facility] Elevated troponin Bilateral hilar lymphadenopathy Mild anemia Mild transaminitis Plan: Continue with ceftriaxone and Zithromax Start Tamiflu Continue with prednisone 30 mg daily Continue with Eliquis. Also patient on aspirin and Brilinta. Steward/[facility] will evaluate the patient as well. Cardiology and pulmonary team consult Labs and medication were reviewed.. Continue same treatment. Continue with symptomatic treatment. Resume home medication. Monitor labs and vitals. DVT and GI prophylaxis. Further recommendations as per clinical course of the patient DVT prophylaxis: S Eliquis GI Prophylaxis: P Protonix PT/OT: Pending Prognosis is guarded
--- NOTE | 2025-01-08 13:13 | P.PN ---
Subjective Progress Note Date: 01/08/25 This is a 64-year-old female patient with a known history of uterine cancer, colon cancer with metastasis to the liver with previous chemotherapy and subsequent lead placed on Keytruda. She had not been on anything since July 2024 she had had 5 hernia surgeries and cardiac stent placements. She was here for nearly the whole month of August for multiple issues. We had not been consulted at that time. Yesterday she had been in her chair nearly 24 hours with the inability to get up due to generalized weakness. When her family could not help her up they called EMS. She was initially seen at [facility] and was found to have influenza A and suspected urinary tract infection and subsequently transferred here for further workup. We are consulted for possible left lower lobe pneumonia. Chest x-ray here reveals bilateral hilar enlargement, underlying lymphadenopathy is not excluded. No consolidation. No pneumothorax. No cardiomegaly. White count 14.6. Hemoglobin 10.9. Platelets 282. INR 1.6. Sodium 136. Potassium 3.8. Bicarb 18. BUN 19. Creatinine 0.88. Glucose 132. AST 68. ALT 45. Alk phos 1426. Troponin 0.090. proBNP 3690. Procalcitonin is pending. She is seen today in consultation in the emergency department. She is currently resting on a stretcher. She is awake and alert. She is quite weak. He denies any shortness of breath, cough or congestion. She is maintaining O2 saturations in the mid 90s on 2 L/min per nasal cannula. She has been afebrile. Hemodynamically stable. The patient is seen today January 07, 2025 in follow-up in the emergency department. She is currently sitting up on a stretcher. Awake and alert in no acute distress. Maintaining good O2 saturations in the 90s on room air. She is afebrile. Hemodynamically stable. No new labs today. She remains on ceftriaxone and azithromycin. Remains on Tamiflu. Anticoagulated with Eliquis. Urinalysis shows 4+ glucose and many bacteria. Procalcitonin elevated at 3.93. Follow-up chest x-ray shows no acute pulmonary process. The patient is seen today January 08, 2025 in follow-up on the regular medical floor. She is awake and alert in no acute distress. Feeling better today compared to yesterday. Main complaint is fatigue. She is maintaining good O2 saturations in the 90s on room air. She is continued on Tamiflu. Remains on ceftriaxone. Anticoagulated with Eliquis. White count 13.4. Hemoglobin 8.9. Platelets 274. Sodium 139. Potassium 3.6. Bicarb 20. BUN 23. Creatinine 0.8. Glucose 131. Objective - Vital Signs Vital signs: Vital Signs Temp 97.4 F L 01/08/25 08:26 Pulse 72 01/08/25 08:26 Resp 18 01/08/25 08:26 BP 149/80 01/08/25 08:26 Pulse Ox 99 01/08/25 08:26 FiO2 Intake & Output 01/07/25 01/08/25 01/08/25 18:59 06:59 18:59 Intake Total 2160 Balance 2160 Weight 65 kg Intake: Oral 2160 Other: Voiding Method Toilet # Voids 6 1 # Bowel Movements 1 - Exam GENERAL EXAM: Alert, pleasant 64-year-old female, resting in bed, on room air, in no apparent distress. HEAD: Normocephalic. EYES: Normal reaction of pupils, equal size. NOSE: Clear with pink turbinates. THROAT: No erythema or exudates. NECK: No masses, no JVD. CHEST: No chest wall deformity. LUNGS: Equal air entry with no crackles, wheeze, rhonchi or dullness. CVS: S1 and S2 normal with no audible murmur, regular rhythm. ABDOMEN: No hepatosplenomegaly, normal bowel sounds, no guarding or rigidity. SPINE: No scoliosis or deformity SKIN: No rashes CENTRAL NERVOUS SYSTEM: No focal deficits, tone is normal in all 4 extremities. EXTREMITIES: There is no peripheral edema. No clubbing, no cyanosis. Peripheral pulses are intact. - Labs CBC & Chem 7: 01/08/25 03:36 01/08/25 03:36 Labs: Abnormal Lab Results - Last 24 Hours (Table) 01/08/25 01/08/25 Range/Units 03:36 03:36 WBC 13.48 H (4.50-10.00) X 10*3/uL RBC 3.32 L (4.10-5.20) X 10*6/uL Hgb 8.9 L (12.0-15.0) g/dL Hct 28.7 L (37.2-46.3) % MCH 26.8 L (27.0-32.0) pg MCHC 31.0 L (32.0-37.0) g/dL RDW 15.9 H (11.5-14.5) % Immature Gran # 0.07 H (0.00-0.04) X 10*3/uL Neutrophils # 10.70 H (1.80-7.70) X 10*3/uL Eosinophils # 0 L (0.04-0.35) X 10*3/uL Carbon Dioxide 19.8 L (21.6-31.8) mmol/L BUN/Creatinine Ratio 28.62 H (12.00-20.00) Ratio Glucose 131 H (70-110) mg/dL Calcium 8.4 L (8.7-10.3) mg/dL Unconjugated Bilirubin 0.09 L (0.20-1.00) mg/dL AST 87 H (13-35) U/L ALT 48 H (8-44) U/L Alkaline Phosphatase 1713 H (41-126) U/L Total Protein 6.1 L (6.2-8.2) g/dL Albumin 3.0 L (3.8-4.9) g/dL Albumin/Globulin Ratio 0.97 L (1.60-3.17) Ratio Assessment and Plan Assessment: Acute influenza A infection with generalized weakness and fatigue. Unable to get herself up out of a chair. Improving Suspected urinary tract infection, culture pending, remains on ceftriaxone Leukocytosis secondary to above Transaminitis Troponin leak Acute hypoxic respiratory failure with possible early pneumonia, congestive heart failure, bilateral hilar lymphadenopathy, recovered and on room air History of colon cancer with liver metastasis, last chemotherapy in July 2024 was subsequently on Keytruda Prolonged hospitalization here in August 2024 with multiple hernia repairs Coronary artery disease with previous stent placement Hypertension Hyperlipidemia History of DVT, maintained on Eliquis Poor overall functional performance based on the above-mentioned multiple comorbidities Plan: The patient was seen and evaluated Labs and medications reviewed Stable and on room air Continue ceftriaxone Completed azithromycin Anticoagulated with Eliquis Continue Tamiflu Continue prednisone I have personally seen and examined the patient, performed the documentation and the assessment and plan as written. Number of minutes spent on the visit: 10 Dictation was produced using [employer] software. Please excuse any grammatical, word or spelling errors.
[2025-01-09 02:43] VITALS: TEMP 97.5
[2025-01-09 09:36] VITALS: BP 169/81; PULSE 59; RESP 18
--- NOTE | 2025-01-09 15:10 | P.PN ---
Subjective Progress Note Date: 01/09/25 This is a 64-year-old female patient with a known history of uterine cancer, colon cancer with metastasis to the liver with previous chemotherapy and subsequent lead placed on Keytruda. She had not been on anything since July 2024 she had had 5 hernia surgeries and cardiac stent placements. She was here for nearly the whole month of August for multiple issues. We had not been consulted at that time. Yesterday she had been in her chair nearly 24 hours with the inability to get up due to generalized weakness. When her family could not help her up they called EMS. She was initially seen at [facility] and was found to have influenza A and suspected urinary tract infection and subsequently transferred here for further workup. We are consulted for possible left lower lobe pneumonia. Chest x-ray here reveals bilateral hilar enlargement, underlying lymphadenopathy is not excluded. No consolidation. No pneumothorax. No cardiomegaly. White count 14.6. Hemoglobin 10.9. Platelets 282. INR 1.6. Sodium 136. Potassium 3.8. Bicarb 18. BUN 19. Creatinine 0.88. Glucose 132. AST 68. ALT 45. Alk phos 1426. Troponin 0.090. proBNP 3690. Procalcitonin is pending. She is seen today in consultation in the emergency department. She is currently resting on a stretcher. She is awake and alert. She is quite weak. He denies any shortness of breath, cough or congestion. She is maintaining O2 saturations in the mid 90s on 2 L/min per nasal cannula. She has been afebrile. Hemodynamically stable. The patient is seen today January 07, 2025 in follow-up in the emergency department. She is currently sitting up on a stretcher. Awake and alert in no acute distress. Maintaining good O2 saturations in the 90s on room air. She is afebrile. Hemodynamically stable. No new labs today. She remains on ceftriaxone and azithromycin. Remains on Tamiflu. Anticoagulated with Eliquis. Urinalysis shows 4+ glucose and many bacteria. Procalcitonin elevated at 3.93. Follow-up chest x-ray shows no acute pulmonary process. The patient is seen today January 08, 2025 in follow-up on the regular medical floor. She is awake and alert in no acute distress. Feeling better today compared to yesterday. Main complaint is fatigue. She is maintaining good O2 saturations in the 90s on room air. She is continued on Tamiflu. Remains on ceftriaxone. Anticoagulated with Eliquis. White count 13.4. Hemoglobin 8.9. Platelets 274. Sodium 139. Potassium 3.6. Bicarb 20. BUN 23. Creatinine 0.8. Glucose 131. The patient is seen today January 09, 2025 in follow-up on the regular medical floor. She is currently resting comfortably in bed. Awake and alert in no acut e distress. Maintaining O2 saturations in the 90s on room air. She has normal saline at 20 mL/h. Sputum culture revealing no growth. Count 13.4. Hemoglobin 8.9. Platelets 274. Sodium 139. Potassium 3.6. Bicarb 20. BUN 23. Creatinine 0.8. Glucose 131. She remains on ceftriaxone. Anticoagulated with Eliquis. Remains on Tamiflu. Objective - Vital Signs Vital signs: Vital Signs Temp 97.5 F L 01/09/25 08:12 Pulse 59 L 01/09/25 08:12 Resp 18 01/09/25 08:12 BP 169/81 01/09/25 08:12 Pulse Ox 96 01/09/25 08:12 FiO2 Intake & Output 01/08/25 01/09/25 01/09/25 18:59 06:59 18:59 Other: Voiding Method Toilet # Voids 2 1 1 # Bowel Movements 1 - Exam GENERAL EXAM: Alert, awake 64-year-old female, resting in bed, on room air, comfortable in no apparent distress. HEAD: Normocephalic. EYES: Normal reaction of pupils, equal size. NOSE: Clear with pink turbinates. THROAT: No erythema or exudates. NECK: No masses, no JVD. CHEST: No chest wall deformity. LUNGS: Equal air entry with no crackles, wheeze, rhonchi or dullness. CVS: S1 and S2 normal with no audible murmur, regular rhythm. ABDOMEN: No hepatosplenomegaly, normal bowel sounds, no guarding or rigidity. SPINE: No scoliosis or deformity SKIN: No rashes CENTRAL NERVOUS SYSTEM: No focal deficits, tone is normal in all 4 extremities. EXTREMITIES: There is no peripheral edema. No clubbing, no cyanosis. Peripheral pulses are intact. - Labs CBC & Chem 7: 01/08/25 03:36 01/08/25 03:36 Labs: Microbiology - Last 24 Hours (Table) 01/08/25 08:42 Gram Stain - Preliminary Sputum Sputum Culture - Preliminary Assessment and Plan Assessment: Acute influenza A infection with generalized weakness and fatigue. Unable to get herself up out of a chair. Improving Suspected urinary tract infection, culture pending, remains on ceftriaxone Leukocytosis secondary to above Transaminitis Troponin leak Acute hypoxic respiratory failure with possible early pneumonia, congestive heart failure, bilateral hilar lymphadenopathy, recovered and on room air History of colon cancer with liver metastasis, last chemotherapy in July 2024 was subsequently on Keytruda Prolonged hospitalization here in August 2024 with multiple hernia repairs Coronary artery disease with previous stent placement Hypertension Hyperlipidemia History of DVT, maintained on Eliquis Poor overall functional performance based on the above-mentioned multiple comorbidities Plan: The patient was seen and evaluated Labs and medications reviewed Stable and on room air Cleared for discharge Complete a prednisone taper Complete a course of Tamiflu Completed course of antibiotics Anticoagulated with Eliquis Follow-up closely with her PCP I have personally seen and examined the patient, performed the documentation and the assessment and plan as written. Number of minutes spent on the visit: 10 Dictation was produced using [employer] dictation software. Please excuse any g rammatical, word or spelling errors.
[2025-01-09] MEDS ORDERED: OSELTAMIVIR 75 MG CAP PO SCH (21:00)
--- NOTE | 2025-01-09 21:59 | P.DS ---
Providers Date of admission: 01/06/25 06:22 Attending physician: Moses Burgess Consults: 01/06/25 06:19 Consult Physician Routine Consulting Provider: Roma Roblero Consult Reason/Comments: Your patient. Do you want consulting provider notified?: Yes 01/06/25 09:16 Consult Physician Routine Consulting Provider: Alejandra Carrasquillo Consult Reason/Comments: Elevated troponin Do you want consulting provider notified?: Yes 01/06/25 09:55 Consult Physician Routine Consulting Provider: Sheila Mcdonough Consult Reason/Comments: Acute respiratory failure, bacterial pneumonia Do you want consulting provider notified?: Yes Primary care physician: Derick Strong MD Hospital Course: Diagnoses: Influenza infection Possible left lower lobe pneumonia seen on CAT scan and [facility] Elevated troponin Bilateral hilar lymphadenopathy Mild anemia Mild transaminitis Hospital course: History of present illness; patient 64-year-old lady with past medical history significant for DVT, colon cancer who presented to the ER as a transfer from [facility] for generalized weakness. Patient stated that she was all right 3 days back when she started noticing that she was getting weak. Patient was complaining of decreased appetite. Patient was complaining of lethargy and dizziness. Patient stated that all her family was also sick with similar symptoms. Patient was found to have influenza A infection and possible left lower lobe pneumonia also she has evidence of bilateral hilar lymphadenopathy, I talked to the patient about these findings with recommendation to follow-up with pulmonary as an outpatient and she agrees Patient has been evaluated by cardiology and pulmonary service. She was treated with IV antibiotics including ceftriaxone and Zithromax and antiviral Tamiflu as well as a prednisone started in the hospital. Patient also is on Eliquis which she has at home as she confirms. Also she has Brilinta. She told me she does not take aspirin at home. She has some episode of epistaxis this morning which is controlled and stopped. No evidence of bleeding from anywhere else. Patient aware with the risk of bleeding from this medication and she agrees that benefi ts more than risk and to continue taking them. She was doing well today and she asked me several times to go home. She really wanted to go today. Patient was denying any other new complaint and she was feeling improved. She was on room air. Appetite and energy improved. Patient was cleared for discharge also by cardiology and pulmonary service Patient will be discharged to finish her course of antibiotics with Ceftin x 3 days, prednisone taper, Tamiflu and Protonix Problems and management plan were discussed with the patient and he verbalized understanding and acceptance Patient was found stable and can be discharged home in guarded prognosis however he needs follow-up as an outpatient. Patient was instructed to follow up with PCP within one week and patient agrees Patient was instructed to follow-up with men's golf coach Dr. Baltazar and wood pile driver operator Dr. Reyes in 2 weeks. Also with oncologist Dr. Roblero and she agrees Physical exam Gen: patient is a AAOx3, no distress CVS: S1-S2, RRR, no murmur Lungs: B/L CTA, no wheezing Abdomen: soft, no distention, no tenderness, positive bowel sounds Extremity: no leg edema or induration Time spent more than 35 minutes Plan - Discharge Summary Discharge Rx Participant: Yes New Discharge Prescriptions: New Acetaminophen Tab [Tylenol] 650 mg PO Q6HR PRN tab PRN Reason: Mild Pain Or Fever > 100.5 cefuroxime axetiL [Ceftin] 500 mg PO BID 3 Days #6 tab predniSONE 10 mg PO DIRECTED #9 tab Pantoprazole [Protonix] 40 mg PO AC-BRKFST 10 Days #10 tab Oseltamivir [Tamiflu] 75 mg PO Q12HR 2 Days #4 cap Continue Atorvastatin [Lipitor] 80 mg PO DAILY 30 Days #30 tab amLODIPine [Norvasc] 5 mg PO DAILY Losartan [Cozaar] 25 mg PO DAILY Empagliflozin [Jardiance] 10 mg PO DAILY Ferrous Sulfate [Iron (65 MG Elemental)] 325 mg PO DAILY Metoprolol Tartrate [Lopressor] 25 mg PO BID 30 Days #60 tab Ticagrelor [Brilinta] 90 mg PO BID tab Apixaban [Eliquis] 5 mg PO BID tab Discontinued Aspirin 81 mg PO DAILY 5 Days #5 tab Rosuvastatin [Crestor] 20 mg PO DAILY Discharge Medication List Ferrous Sulfate [Iron (65 MG Elemental)] 325 mg PO DAILY 08/27/24 [History] Atorvastatin [Lipitor] 80 mg PO DAILY 30 Days #30 tab 09/01/24 [Rx] Metoprolol Tartrate [Lopressor] 25 mg PO BID 30 Days #60 tab 09/01/24 [Rx] Apixaban [Eliquis] 5 mg PO BID tab 09/14/24 [Rx] Ticagrelor [Brilinta] 90 mg PO BID tab 09/14/24 [Rx] Empagliflozin [Jardiance] 10 mg PO DAILY 01/06/25 [History] Losartan [Cozaar] 25 mg PO DAILY 01/06/25 [History] amLODIPine [Norvasc] 5 mg PO DAILY 01/06/25 [History] Acetaminophen Tab [Tylenol] 650 mg PO Q6HR PRN tab 01/09/25 [Rx] Oseltamivir [Tamiflu] 75 mg PO Q12HR 2 Days #4 cap 01/09/25 [Rx] Pantoprazole [Protonix] 40 mg PO AC-BRKFST 10 Days #10 tab 01/09/25 [Rx] cefuroxime axetiL [Ceftin] 500 mg PO BID 3 Days #6 tab 01/09/25 [Rx] predniSONE 10 mg PO DIRECTED #9 tab 01/09/25 [Rx] Follow up Appointment(s)/Referral(s): Sheila Mcdonough MD [STAFF PHYSICIAN] - 01/30/25 1:00 pm Ziyad Clayton MD [STAFF PHYSICIAN] - 2 Weeks (Please call office to make your appointment.) Derick Strong MD [Primary Care Provider] - 01/13/25 8:45 am (Please bring discharge paperwork to your follow-up appointment) Roma Roblero MD [STAFF PHYSICIAN] - 01/24/25 2:00 pm Activity/Diet/Wound Care/Special Instructions: heart healthy diet activity is restricted till you see your doctor Discharge Disposition: HOME WITH HOME HEALTH SERVICES
== END 2025-01-09 14:40 | disposition home or self-care (01) | DRG 193 ==
LOC: EC 04:17 → 3SCARD 06:22 → 4SSUR 01-07 15:05
PROVIDERS: ADMIT Hospitalist; ATTEND Hospitalist
DX: J10.08 Influenza due to other identified influenza virus with other specified pneumonia (principal); J96.01 Acute respiratory failure with hypoxia; C78.7 Secondary malignant neoplasm of liver and intrahepatic bile duct; C18.9 Malignant neoplasm of colon, unspecified; D63.0 Anemia in neoplastic disease; E78.5 Hyperlipidemia, unspecified; I11.0 Hypertensive heart disease with heart failure; N39.0 Urinary tract infection, site not specified; I50.9 Heart failure, unspecified; J15.9 Unspecified bacterial pneumonia; R59.0 Localized enlarged lymph nodes; I25.10 Atherosclerotic heart disease of native coronary artery without angina pectoris; R04.0 Epistaxis; Z79.01 Long term (current) use of anticoagulants; Z79.899 Other long term (current) drug therapy; Z79.82 Long term (current) use of aspirin; Z87.891 Personal history of nicotine dependence; Z92.21 Personal history of antineoplastic chemotherapy; Z95.5 Presence of coronary angioplasty implant and graft; Z86.718 Personal history of other venous thrombosis and embolism; Z79.02 Long term (current) use of antithrombotics/antiplatelets; Z79.84 Long term (current) use of oral hypoglycemic drugs; Z85.42 Personal history of malignant neoplasm of other parts of uterus
CPT/HCPCS: 36415; 71045; 80048; 80053; 80076; 81001; 83605; 83880; 84145; 84484; 85025; 85610; 85730; 87070; 87205; 87449; 93005; 93308; 96361; 96365; 96366; 99285

== ENCOUNTER → 2025-03-27 | Outpatient (CLI) | payer MEDICARE ==
[2025-03-27 14:22] LABS: African American GFR (CKD) 53 (>60 ml/min/1.73 sqM); Blood Urea Nitrogen 27 mg/dL (7-17); Non-African American GFR(CKD) 46 (>60 ml/min/1.73 sqM)
--- NOTE | 2025-03-27 21:55 | CT ---
EXAMINATION TYPE: CT abdomen pelvis w con DATE OF EXAM: 03/27/2025 4:34 PM COMPARISON: None. CLINICAL INDICATION: Female, 64 years old with history of C18.7 MALIGNANT NEOPLASM OF SIGMOID COLON, F/u for malignant neoplasm of sigmoid colon TECHNIQUE: Axial images were obtained from above the diaphragm to the pubic rami in the axial plane a t 5 mm thick sections. Reconstructed images are reviewed on the computer in the coronal plane. CONTRAST: 80ml mL of Isovue 300. Study performed with Oral Contrast DLP: 932.6 mGycm, Automated exposure control for dose reduction was used. FINDINGS: Limited CT sections are obtained the lung bases. The lung bases are clear. CT ABDOMEN: Ascites is present. Liver: There is an ill-defined hypodensity within the anterior right lobe liver measuring 9 cm. Some smaller hypodensities are in the upper posterior right lobe liver. Findings were present previously. Findings suspicious for neoplasm. Spleen: Normal Pancreas: Normal Adrenal glands: The adrenal glands are normal. Gallbladder: Normal Kidneys: No masses are evident. No hydronephrosis is present. Mid lateral left renal cortical cyst measures 2.3 cm. Delayed images were obtained through the kidneys, which remain unremarkable. Aorta: Vascular calcification is within the aorta. Inferior vena cava: Normal. CT PELVIS: Loops of bowel within the abdomen and pelvis are normal. Fecal debris is within the descending colon . Minimal diffuse wall thickening within the distal sigmoid region may be present. There are loops o f bowel which are incompletely distended or lack oral contrast limiting their evaluation. Appendix: Not identified. No dilated tubular structure or inflammatory changes evident Urinary bladder: Normal. Genitourinary structures: Uterus may be present in the posterior left hemipelvis. Correlate with surg ical history. Prior hysterectomy, mass adjacent to the sigmoid colon should be considered. This appears to be prese nt previously Osseous structures: No suspicious lytic or sclerotic lesions. Scoliosis within the lumbar spine with convexity to the right. IMPRESSION: 1. Mild ascites. 2. Ill-defined hypodense masses within the liver compatible with metastatic disease. 3. Soft tissue density in the posterior left hemipelvis. This potentially could be the uterus. Correl ate with history. However, a sigmoid mass should also be considered. Follow-up recommended. [facility], , 03/27/2025 9:53 PM
== END | disposition home or self-care (01) ==
LOC: RADCTMAIN 13:20
PROVIDERS: ATTEND Internal Medicine Hematology & Oncology
DX: Z03.89 Encounter for observation for other suspected diseases and conditions ruled out (principal); C18.7 Malignant neoplasm of sigmoid colon; R18.8 Other ascites; J98.4 Other disorders of lung
CPT/HCPCS: 82565; 84520; 74177; 36415; Q9967

== ENCOUNTER 2025-04-03 17:12 | Inpatient (IN) | payer MEDICARE, OTHER ==
--- NOTE | 2025-04-03 17:45 | ED ---
General Adult HPI - General Chief complaint: Weakness Stated complaint: Pain Time Seen by Provider: 04/03/25 17:16 Source: patient, EMS, RN notes reviewed Mode of arrival: EMS Limitations: no limitations - History of Present Illness Initial comments: 64-year-old female presents to the emergency department as transfer from [facility]. She reports a history of colon cancer, metastatic liver cancer. She is receiving Keytruda. She follows with Dr. Morales. Patient notes that she is felt weak over the past 3 days. She notes today that this is significantly gotten worse. She states that she has had difficulty ambulating because of this. This prompted her presentation to the outside facility. She denies any significant abdominal pain, chest pain, shortness of breath. - Related Data Home Medications Medication Instructions Recorded Confirmed Ferrous Sulfate [Iron (65 MG 325 mg PO DAILY 08/27/24 04/04/25 Elemental)] Empagliflozin [Jardiance] 10 mg PO DAILY 01/06/25 04/04/25 Losartan [Cozaar] 25 mg PO DAILY 01/06/25 04/04/25 amLODIPine [Norvasc] 5 mg PO DAILY 01/06/25 04/04/25 Pembrolizumab [Keytruda] 400 mg IV Q42D 04/04/25 04/04/25 Previous Rx's Medication Instructions Recorded Atorvastatin [Lipitor] 80 mg PO DAILY 30 Days #30 tab 09/01/24 Metoprolol Tartrate [Lopressor] 25 mg PO BID 30 Days #60 tab 09/01/24 Apixaban [Eliquis] 5 mg PO BID tab 09/14/24 Ticagrelor [Brilinta] 90 mg PO BID tab 09/14/24 Allergies Allergy/AdvReac Type Severity Reaction Status Date / Time No Known Allergies Allergy Verified 04/04/25 07:00 Review of Systems ROS Statement: Those systems with pertinent positive or pertinent negative responses have been documented in the HPI. ROS Other: All systems not noted in ROS Statement are negative. Past Medical History Past Medical History: Cancer, Deep Vein Thrombosis (DVT), Musculoskeletal Disorder Additional Past Medical History / Comment(s): kidney infection, colon cancer, dvt in leg, ascites, uterine CA, mets to liver, anemia History of Any Multi-Drug Resistant Organisms: None Reported Past Surgical History: Bowel Resection, Heart Catheterization With Stent, Hernia Repair, Orthopedic Surgery Additional Past Surgical History / Comment(s): allison wrist surgery 2009, colon resection 09/08, multi paracentesis Past Anesthesia/Blood Transfusion Reactions: No Reported Reaction Date of Last Stent Placement:: 09/11 Past Psychological History: No Psychological Hx Reported Smoking Status: Former smoker Past Alcohol Use History: Rare Past Drug Use History: None Reported - Past Family History Father Family Medical History: Cancer Mother Family Medical History: Vascular Disorder General Exam Limitations: no limitations General appearance: alert, in no apparent distress Head exam: Present: atraumatic, normocephalic, normal inspection Eye exam: Present: normal appearance, PERRL, EOMI. Absent: scleral icterus, conjunctival injection, periorbital swelling Respiratory exam: Present: normal lung sounds bilaterally. Absent: respiratory distress, wheezes, rales, rhonchi, stridor Cardiovascular Exam: Present: regular rate, normal rhythm, normal heart sounds. Absent: systolic murmur, diastolic murmur, rubs, gallop, clicks GI/Abdominal exam: Present: soft, normal bowel sounds. Absent: distended, tenderness, guarding, rebound, rigid Extremities exam: Present: normal inspection, full ROM, normal capillary refill. Absent: tenderness, pedal edema, joint swelling, calf tenderness Neurological exam: Present: alert, oriented X3 Psychiatric exam: Present: normal affect, normal mood Skin exam: Present: warm, dry, intact. Absent: normal color (jaundice) Course Vital Signs 04/03/25 04/03/25 04/03/25 17:13 21:46 23:55 Temperature 98.8 F Pulse Rate 72 75 71 Respiratory 18 18 18 Rate Blood Pressure 106/64 116/89 95/66 O2 Sat by Pulse 97 96 97 Oximetry 04/04/25 04/04/25 04/04/25 02:25 05:49 07:01 Temperature Pulse Rate 74 75 76 Respiratory 18 18 18 Rate Blood Pressure 101/65 97/66 126/72 O2 Sat by Pulse 97 99 96 Oximetry Medical Decision Making - Medical Decision Making Was pt. sent in by a medical professional or institution (, PA, CONTRACT ADMINISTRATION MANAGER, urgent care, hospital, or senior living...) When possible be specific @ -Patient transferred from outside facility Did you speak to anyone other than the patient for history (EMS, parent, family, police, friend...)? What history was obtained from this source @ -No Did you review nursing and triage notes (agree or disagree)? Why? @ -I reviewed and agree with nursing and triage notes Were old charts reviewed (outside hosp., previous admission, EMS record, old EKG, old radiological studies, urgent care reports/EKG's, senior living records)? Report findings @ -I reviewed the records from [facility] Differential Diagnosis (chest pain, altered mental status, abdominal pain women, abdominal pain men, vaginal bleeding, weakness, fever, dyspnea, syncope, headache, dizziness, GI bleed, back pain, seizure, CVA, palpatations, mental health, musculoskeletal)? @ -Differential Weakness: Hypoglycemia, shock, sepsis, hyponatremia, anemia, infection, FL, ETOH, adverse medicine reaction, overdose, stroke, this is not meant to be an all-inclusive list. EKG interpreted by me (3pts min.). @ -EKG@1807 shows sinus rhythm rate 73, IL 190, QRS 120, QTQTc 4 94 36 X-rays interpreted by me (1pt min.). @ -None done CT interpreted by me (1pt min.). @ -None done U/S interpreted by me (1pt. min.). @ -Abdominal ultrasoundReveals mildly distended gallbladder lumen without evidence for cholelithiasis or acute cholecystitis, numerous metastatic liver lesions What testing was considered but not performed or refused? (CT, X-rays, U/S, labs)? Why? @ -None What meds were considered but not given or refused? Why? @ -None Did you discuss the management of the patient with other professionals (professionals i.e. , PA, CONTRACT ADMINISTRATION MANAGER, lab, RT, psych nurse, social service coordinator, machine heel seat fitter, t eacher, aoc operations intelligence officer, counter caser)? Give summary @ -Management discussed with Donna Atkinson with [facility] was accepting of the admission Was smoking cessation discussed for >3mins.? @ -No Was critical care preformed (if so, how long)? @ -No Were there social determinants of health that impacted care today? How? (Homelessness, low income, unemployed, alcoholism, drug addiction, transportation, low edu. Level, literacy, decrease access to med. care, shelter, rehab)? @ -No Was there de-escalation of care discussed even if they declined (Discuss DNR or withdrawal of care, Hospice)? DNR status @ -No What co-morbidities impacted this encounter? (DM, HTN, Smoking, COPD, CAD, Cancer, CVA, ARF, Chemo, Hep., AIDS, mental health diagnosis, sleep apnea, morbid obesity)? @ -None Was patient admitted / discharged? Hospital course, mention meds given and route, prescriptions, significant lab abnormalities, going to OR and other pertinent info. @ -Admitted patient presented the emergency department for evaluation of generalized weakness. She was transferred from an outside facility for generalized weakness and elevated troponin. Repeat laboratory studies obtainedReveals no significant leukocytosis, hemoglobin 10.6; elevated INR at 2.6; significant transaminitis, elevation in alk phos which is likely related to the patient's liver metastases. Troponin indeterminate range at 0.022. Patient will be admitted to the hospital for generalized weakness. Case discussed with [facility] was accepting of the admission. Case discussed with Dr. Mcghee. Undiagnosed new problem with uncertain prognosis? @ -No Drug Therapy requiring intensive monitoring for toxicity (Heparin, Nitro, Insulin, Cardizem)? @ -No Were any procedures done? @ -No Diagnosis/symptom? @ -Generalized weakness Acute, or Chronic, or Acute on Chronic? @ -Acute Uncomplicated (without systemic symptoms) or Complicated (systemic symptoms)? @ -Candidate Side effects of treatment? @ -No Exacerbation, Progression, or Severe Exacerbation? @ -No Poses a threat to life or bodily function? How? (Chest pain, USA, FL, pneumonia, PE, COPD, DKA, ARF, appy, cholecystitis, CVA, Diverticulitis, Homicidal, Suicidal, threat to staff... and all critical care pts) @ -No - Lab Data Result diagrams: 04/07/25 07:16 04/06/25 06:23 Lab Results 04/03/25 04/03/25 04/03/25 Range/Units 17:58 17:58 17:58 WBC 9.08 (4.50-10.00) 10*3/uL RBC 3.85 L (4.10-5.20) 10*6/uL Hgb 10.6 L (12.0-15.0) g/dL Hct 33.5 L (37.2-46.3) % MCV 87.0 (80.0-97.0) fL MCH 27.5 (27.0-32.0) pg MCHC 31.6 L (32.0-37.0) g/dL Plt Count 306 (140-440) 10*3/uL MPV 10.5 (9.5-12.2) fL Immature Gran % (Auto) 0.4 % Neutrophils % 73.8 % Lymphocytes % 13.8 % Monocytes % 8.7 % Eosinophils % 2.5 % Basophils % 0.8 % Immature Gran # 0.04 (0.00-0.04) 10*3/uL Neutrophils # 6.70 (1.80-7.70) 10*3/uL Lymphocytes # 1.25 (0.90-5.00) 10*3/uL Monocytes # 0.79 (0.20-1.00) 10*3/uL Eosinophils # 0.23 (0.04-0.35) 10*3/uL Basophils # 0.07 (0.00-0.10) 10*3/uL Manual Slide Review Performed Large Platelets Present Polychromasia Present PT 26.2 H (10.0-12.5) sec INR 2.6 H (<1.2) APTT 44.4 H (22.0-30.0) sec Sodium 140 (137-145) mmol/L Potassium 3.6 (3.5-5.1) mmol/L Chloride 114 H (98-107) mmol/L Carbon Dioxide 14 L (22-30) mmol/L Anion Gap 12 mmol/L BUN 27 H (7-17) mg/dL Creatinine 1.21 H (0.52-1.04) mg/dL Est GFR (CKD-EPI)AfAm 55 (>60 ml/min/1.73 sqM) Est GFR (CKD-EPI)NonAf 47 (>60 ml/min/1.73 sqM) Glucose 91 (74-99) mg/dL Calcium 9.3 (8.4-10.2) mg/dL Total Bilirubin 6.4 H (0.2-1.3) mg/dL AST 576 H (14-36) U/L ALT 395 H (4-34) U/L Alkaline Phosphatase 2315 H (38-126) U/L Troponin I (0.000-0.034) ng/mL Total Protein 6.7 (6.3-8.2) g/dL Albumin 3.1 L (3.5-5.0) g/dL 04/03/25 Range/Units 17:58 WBC (4.50-10.00) 10*3/uL RBC (4.10-5.20) 10*6/uL Hgb (12.0-15.0) g/dL Hct (37.2-46.3) % MCV (80.0-97.0) fL MCH (27.0-32.0) pg MCHC (32.0-37.0) g/dL Plt Count (140-440) 10*3/uL MPV (9.5-12.2) fL Immature Gran % (Auto) % Neutrophils % % Lymphocytes % % Monocytes % % Eosinophils % % Basophils % % Immature Gran # (0.00-0.04) 10*3/uL Neutrophils # (1.80-7.70) 10*3/uL Lymphocytes # (0.90-5.00) 10*3/uL Monocytes # (0.20-1.00) 10*3/uL Eosinophils # (0.04-0.35) 10*3/uL Basophils # (0.00-0.10) 10*3/uL Manual Slide Review Large Platelets Polychromasia PT (10.0-12.5) sec INR (<1.2) APTT (22.0-30.0) sec Sodium (137-145) mmol/L Potassium (3.5-5.1) mmol/L Chloride (98-107) mmol/L Carbon Dioxide (22-30) mmol/L Anion Gap mmol/L BUN (7-17) mg/dL Creatinine (0.52-1.04) mg/dL Est GFR (CKD-EPI)AfAm (>60 ml/min/1.73 sqM) Est GFR (CKD-EPI)NonAf (>60 ml/min/1.73 sqM) Glucose (74-99) mg/dL Calcium (8.4-10.2) mg/dL Total Bilirubin (0.2-1.3) mg/dL AST (14-36) U/L ALT (4-34) U/L Alkaline Phosphatase (38-126) U/L Troponin I 0.022 (0.000-0.034) ng/mL Total Protein (6.3-8.2) g/dL Albumin (3.5-5.0) g/dL Disposition Clinical Impression: Generalized weakness Disposition: ADMITTED IP TO THIS HOSP Condition: Stable Is patient prescribed a controlled substance at d/c from ED?: No
[2025-04-03 18:08] LABS: Basophils # (A) 0.07 10*3/uL (0.00-0.10); Basophils % (A) 0.8 %; Eosinophils # (A) 0.23 10*3/uL (0.04-0.35); Eosinophils % (A) 2.5 %; HCT 33.5 % (37.2-46.3); HGB 10.6 g/dL (12.0-15.0); Lymphocytes # (A) 1.25 10*3/uL (0.90-5.00); Lymphocytes % (A) 13.8 %; MCH 27.5 pg (27.0-32.0); MCHC 31.6 g/dL (32.0-37.0); Mean Platelet Volume 10.5 fL (9.5-12.2); Monocytes # (A) 0.79 10*3/uL (0.20-1.00); Monocytes % (A) 8.7 %; Neutrophils % (A) 73.8 %; Platelet Count 306 10*3/uL (140-440); RBC 3.85 10*6/uL (4.10-5.20); RDW 23.1 % (11.5-14.5); WBC 9.08 10*3/uL (4.50-10.00)
[2025-04-03 18:14] LABS: INR 2.6 (<1.2); Partial Thromboplastin Time 44.4 sec (22.0-30.0); Prothrombin Time 26.2 sec (10.0-12.5)
[2025-04-03 18:30] LABS: Large Platelets Present; Polychromasia Present
[2025-04-03 18:36] LABS: ALT 395 U/L (4-34); AST 576 U/L (14-36); African American GFR (CKD) 55 (>60 ml/min/1.73 sqM); Albumin 3.1 g/dL (3.5-5.0); Anion Gap 12 mmol/L; Blood Urea Nitrogen 27 mg/dL (7-17); Calcium 9.3 mg/dL (8.4-10.2); Carbon Dioxide 14 mmol/L (22-30); Chloride 114 mmol/L (98-107); Glucose 91 mg/dL (74-99); Non-African American GFR(CKD) 47 (>60 ml/min/1.73 sqM); Potassium 3.6 mmol/L (3.5-5.1); Sodium 140 mmol/L (137-145); Total Bilirubin 6.4 mg/dL (0.2-1.3); Total Protein 6.7 g/dL (6.3-8.2)
[2025-04-03 18:48] LABS: Alkaline Phosphatase 2315 U/L (38-126)
--- NOTE | 2025-04-03 20:47 | US ---
EXAMINATION TYPE: US gallbladder DATE OF EXAM: 04/03/2025 COMPARISON: CT 03/27/25, US 09/06/24 CLINICAL INDICATION: Female, 64 years old with history of elevated lft, hx of liver mets; elevated lf ts, hx colon cancer and mets to liver TECHNIQUE: Grayscale and color Doppler imaging of the right upper quadrant was performed. FINDINGS: EXAM MEASUREMENTS: Liver Length: 17.3 cm Gallbladder Wall: 0.3 cm CBD: 0.7 cm Right Kidney: 11.4 x 3.8 x 5.0 cm COOKING CHEF NOTES:slightly limited due to overlying gas and patient lack of mobility Pancreas: Obscured by bowel gas Liver: Numerous heterogeneously echogenic mass-like areas seen, largest heterogeneous mass measures 5.2 x 5.7 x 5.1cm, compared to approximately 5.7 x 5.7 x 5.9 previously when measured in a similar fa shion Findings are compatible with patient's known metastatic disease to the liver. Gallbladder: wnl as best seen Evidence for sonographic Jeter's sign: no CBD: Measures approximately 6-7 mm in greatest diameter, which is near the upper limits of normal for patient's age. No obstructing biliary lesion or stone identified. Right Kidney: wnl as best seen IMPRESSION: 1. Mildly distended gallbladder lumen without sonographic evidence of cholelithiasis or acute cholec ystitis. 2. Numerous metastatic liver lesions. [facility], , 04/03/2025 8:45 PM
[2025-04-03] MEDS ORDERED: ONDANSETRON 4 MG/2 ML VIAL IVP PRN (21:02)
[2025-04-03] MEDS ORDERED: NALOXONE 0.4 MG/ML 1 ML VIAL IV PRN (21:02)
[2025-04-03] MEDS: APIXABAN 5 MG TAB PO SCH (21:58)
[2025-04-03] MEDS: SODIUM CHLORIDE 0.9% 1,000 ML IV SCH (21:59)
[2025-04-04] MEDS ORDERED: ATORVASTATIN 80 MG TAB PO SCH (09:00)
[2025-04-04 09:03] LABS: Basophils # (A) 0.09 10*3/uL (0.00-0.10); Basophils % (A) 0.9 %; Eosinophils # (A) 0.21 10*3/uL (0.04-0.35); Eosinophils % (A) 2.2 %; HCT 30.8 % (37.2-46.3); HGB 9.7 g/dL (12.0-15.0); Lymphocytes # (A) 1.05 10*3/uL (0.90-5.00); Lymphocytes % (A) 10.9 %; MCH 27.5 pg (27.0-32.0); MCHC 31.5 g/dL (32.0-37.0); MCV 87.3 fL (80.0-97.0); Mean Platelet Volume 10.5 fL (9.5-12.2); Monocytes # (A) 0.75 10*3/uL (0.20-1.00); Monocytes % (A) 7.8 %; Neutrophils # (A) 7.47 10*3/uL (1.80-7.70); Neutrophils % (A) 77.8 %; Platelet Count 360 10*3/uL (140-440); RBC 3.53 10*6/uL (4.10-5.20); WBC 9.61 10*3/uL (4.50-10.00)
[2025-04-04 09:31] LABS: African American GFR (CKD) 46 (>60 ml/min/1.73 sqM); Anion Gap 13 mmol/L; Blood Urea Nitrogen 28 mg/dL (7-17); Calcium 9.5 mg/dL (8.4-10.2); Carbon Dioxide 14 mmol/L (22-30); Chloride 114 mmol/L (98-107); Glucose 132 mg/dL (74-99); Non-African American GFR(CKD) 40 (>60 ml/min/1.73 sqM); Potassium 3.6 mmol/L (3.5-5.1); Sodium 141 mmol/L (137-145)
[2025-04-04] MEDS: FERROUS SULFATE 325 MG TAB PO SCH (09:50)
[2025-04-04 10:03] LABS: Anisocytosis (M) Present
[2025-04-04] MEDS: LACTATED RINGERS 1,000 ML IV SCH (11:54)
[2025-04-04] MEDS: TICAGRELOR 90 MG TAB PO SCH (11:54)
--- NOTE | 2025-04-04 15:11 | P.HPIM ---
History of Present Illness H&P Date: 04/04/25 Patient is a 64-year-old female with history of colon cancer, liver cancer with metastasis (currently on Keytruda last dose about 4 weeks ago, follows with Dr. Cristiane Morales) history of DVT (Eliquis), CAD with x2 stent placement, as transfer from [facility] here for generalized weakness. Patient reported that she has been having generalized weakness for the past 3 days with associated difficulty in ambulating. On day of admission her weakness has gotten significantly worse which led her to seek care. She denied chest pain, palpitations, shortness of breath, extremity swelling, focal weakness, speech changes, vision changes, abdominal pain, urinary frequency, dysuria, diarrhea, loss of appetite. On evaluation at the outside facility she had elevated liver enzymes, BUN and creatinine. She was admitted in December 2024 for influenza with possible left lower pneumonia and was sent home on 3 days of p.o. antibiotics, prednisone taper, tamsulosin and Protonix. On admission: Vitals: Temp 98.8 F, OK 72, RR 18, BP 106/64, O2 saturation 97% on room air Labs: WBC 9.08, hemoglobin 10.6, MCV 87, platelet count 206,000, sodium 140, potassium 3.6, bicarb 14, chloride 114, BUN 27, creatinine 1.2, glucose 91, AST 576, ALT 395, alk phos 2315, albumin 3.1. Troponin was flat at 0.02. Coa gulation studies shows PT 26.2, INR 2.6, PTT 44.4 Imaging: CT abdomen outside facility showed moderate constipation, small ascites, kidney cysts, bilateral right and lower lobe atelectasis.. EKG inde pendently interpreted showed sinus rhythm with a rate of 73, left axis deviation, no ST-T changes, QTc 436 MS Gallbladder ultrasound from our facility showed mildly distended gallbladder lumen without sonographic evidence of cholelithiasis or acute cholecystitis, numerous metastatic liver lesions. ED documentation reviewed. Review of systems: Pertinent positives and negatives as discussed in HPI, a complete review of systems was performed and all other systems are negative. Social history: Tobacco: Former smoker. Active 22 years 1ppd. Quit 25 years ago. Alcohol: Now decreased intake to occasional intake. Former heavy intake 10 years and drank rum 3 glasses every other day. Recreational drugs: No history of use Travel: no history of prolonged travel Physical examination: Vital signs reviewed General: non toxic, no distress, appears at stated age, Derm: no unusual rashes/lesions, warm, jaundice Head: atraumatic, normocephalic, symmetric Eyes: EOMI, icteric sclera, pupils equal round reactive to light ENT: Nose and ears atraumatic Neck: No cervical lymphadenopathy, trachea midline, supple Mouth: no lip lesion, mucus membranes moist Cardiovascular: S1S2 regular, no murmur Lungs: CTA bilateral, no rhonchi, no rales, no accessory muscle use Abdominal: soft, nondistended, nontender to palpation, no guarding Ext: muscle strength 5 out of 5 in all 4 extremities grossly, no gross muscle atrophy, no contractures, positive dorsalis pedis pulse bilateral, no edema Neuro: CN II-XI grossly intact, no gross focal neuro deficits Psych: Alert and oriented x 3, appropriate affect and mood Assessment/Plan: 64-year-old female with history of active colon cancer with metastasis to the liver currently on chemo, history of DVT and CAD is here for evaluation of generalized weakness. Found to have elevated creatinine, elevated liver enzymes, bilirubin and alk phos on labs. The patient is admitted with an anticipated greater than 2 midnight stay for evaluation of OUMOU and debility from active cancer Active: #Acute Kidney Injury, prerenal BUN 27, creatinine 1.2 Monitor UO and renal function Avoid nephrotoxic agents IVF 0.9 normal saline 75 cc/h Renal Ultrasound if does not improve Bladder scan #Anemia of chronic disease, at baseline #Debility #History of colon cancer with metastasis to liver #Hyperbilirubinemia secondary to above #Elevated transaminases secondary to above #Elevated alk phos secondary to above Hemoglobin 10.6 AST 576, ALT 395, alk phos 2315 Total bilirubin 6.4 Gallbladder ultrasound from our facility showed mildly distended gallbladder lumen without sonographic evidence of cholelithiasis or acute cholecystitis Monitor CBC. Transfuse if hemoglobin less than 7 Currently receiving Keytruda and follows with Dr. Morales Consult heme-onc Consult PT/OT Chronic Conditions: #History of DVT #CAD with stent placement #Hypertension Patient on home Brilinta and Eliquis per bridge expert and patient was aware of adverse effects of bleeding. At current she has no symptoms of bleeding or bruising at this time. Hold antihypertensive for now due to blood pressure being labile DVT ppx: On Eliquis 5 mg p.o. twice daily CODE STATUS: Full Discussed with: Patient Anticipated discharge place: Home Adry Hudson MD PGY-1 Internal Medicine Dictation was produced using [employer] dictation software. please excuse any grammatical, word or spelling errors. Attestation: I have seen and examined this patient with my resident, assessment and plan discussed with the resident, agree with assessment and plan as written above. Dr. Charles Past Medical History Past Medical History: Cancer, Deep Vein Thrombosis (DVT), Musculoskeletal Disorder Additional Past Medical History / Comment(s): kidney infection, colon cancer, dvt in leg, ascites, uterine CA, mets to liver, anemia History of Any Multi-Drug Resistant Organisms: None Reported Past Surgical History: Bowel Resection, Heart Catheterization With Stent, Hernia Repair, Orthopedic Surgery Additional Past Surgical History / Comment(s): allison wrist surgery 2009, colon resection 09/08, multi paracentesis Past Anesthesia/Blood Transfusion Reactions: No Reported Reaction Date of Last Stent Placement:: 09/11 Past Psychological History: No Psychological Hx Reported Smoking Status: Former smoker Past Alcohol Use History: Rare Past Drug Use History: None Reported - Past Family History Father Family Medical History: Cancer Mother Family Medical History: Vascular Disorder Medications and Allergies Home Medications Medication Instructions Recorded Confirmed Type Ferrous Sulfate [Iron (65 MG 325 mg PO DAILY 08/27/24 04/04/25 History Elemental)] Atorvastatin [Lipitor] 80 mg PO DAILY 30 Days #30 tab 09/01/24 04/04/25 Rx Metoprolol Tartrate [Lopressor] 25 mg PO BID 30 Days #60 tab 09/01/24 04/04/25 Rx Apixaban [Eliquis] 5 mg PO BID tab 09/14/24 04/04/25 Rx Ticagrelor [Brilinta] 90 mg PO BID tab 09/14/24 04/04/25 Rx Empagliflozin [Jardiance] 10 mg PO DAILY 01/06/25 04/04/25 History Losartan [Cozaar] 25 mg PO DAILY 01/06/25 04/04/25 History amLODIPine [Norvasc] 5 mg PO DAILY 01/06/25 04/04/25 History Pembrolizumab [Keytruda] 400 mg IV Q42D 04/04/25 04/04/25 History Allergies Allergy/AdvReac Type Severity Reaction Status Date / Time No Known Allergies Allergy Verified 04/04/25 07:00 Physical Exam Vitals: Vital Signs Temp Pulse Resp BP Pulse Ox 04/04/25 07:01 76 18 126/72 96 04/04/25 05:49 75 18 97/66 99 04/04/25 02:25 74 18 101/65 97 04/03/25 23:55 71 18 95/66 97 04/03/25 21:46 75 18 116/89 96 04/03/25 17:13 98.8 F 72 18 106/64 97 Intake and Output 04/03/25 04/04/25 04/04/25 22:59 06:59 14:59 Other: Weight 70.307 kg Results CBC & Chem 7: 04/04/25 08:53 04/04/25 08:54 Labs: Abnormal Lab Results - Last 24 Hours (Table) 04/03/25 04/03/25 04/03/25 Range/Units 17:58 17:58 17:58 RBC 3.85 L (4.10-5.20) 10*6/uL Hgb 10.6 L (12.0-15.0) g/dL Hct 33.5 L (37.2-46.3) % MCHC 31.6 L (32.0-37.0) g/dL PT 26.2 H (10.0-12.5) sec INR 2.6 H (<1.2) APTT 44.4 H (22.0-30.0) sec Chloride 114 H (98-107) mmol/L Carbon Dioxide 14 L (22-30) mmol/L BUN 27 H (7-17) mg/dL Creatinine 1.21 H (0.52-1.04) mg/dL Total Bilirubin 6.4 H (0.2-1.3) mg/dL AST 576 H (14-36) U/L ALT 395 H (4-34) U/L Alkaline Phosphatase 2315 H (38-126) U/L Albumin 3.1 L (3.5-5.0) g/dL
--- NOTE | 2025-04-04 16:29 | P.CONS ---
History of Present Illness - Reason for Consult Consult date: 04/04/25 colon cancer Requesting physician: Margaret Peterson - Chief Complaint weakness - History of Present Illness Patient is a 64 year old female who was admitted to [facility] with progressive weakness and abdominal pain in 2020. She was found to have severe anemia, was transferred to [facility], CT Scan on 08/20/21 revealed Large area of sigmoid thickening measuring 13.5X4.9 cm and a fluid collection in front of colon measuring 4.6X5.4 cm C/O abscess. She had Colonoscopy by Dr Jonny Cuenca revealed sigmoid mass, biopsy revealed adenocarcinoma. The patient was taken to OR on 08/22/21 where she was found to have abscess and 9 cm Grase II perforated Adenocarcinoma involving small bowell (T4b), all [address] LN were negative, all margins of resection negative. Underwent adjuvant chemo. -Called pt in for review of CT CAP 04/15/22-yellow level critical called-focal dilatation of the intrahepatic biliary tree, markedly distended endometrial cavity with rt ov cyst increased in size from 2.9 to 3.6, severe fecal loading in the colon. September 2022 , C/O abdominal distention, had diagnostic paracentesis > metastatic Adenocarcinoma C/W FOAM MOLDER source. The patient was evaluated by Dr Camarillo, started on Neoadjuvant Chemotherapy > received Carboplatinum+Taxol X 3 > fatigue. C/O abdominal distention, was seen by Dr Camarillo, Liver Bx advised. Liver Bx negative. NO+BSO by Dr Camarillo at [facility] on 07/09/23, T2N0 Endometrial Ca, Bx of liver lesion: metastatic Colon cancer. PET Scan: Liver mets, Gaurdant 360: MSI- H. Patient was started on keytruda, and completed cycle 9 on 07/06/24. Patient then requested to stop treatment for chemo holiday. She had restaging CT-CAP on 12/13/24, which did not report any new disease, but liver lesions are reported as possibly slightly larger but, no new lesions. Recommended resuming Keytruda but pt did not want to resume treatment at that time. Patient did end up agreeing to restart keytruda and is s/p cycle 2 on 03/14/25. Treatment response CT abdomen pelvis obtained on 03/27/2025 showed mild ascites. Ill-defined hypodense masses within the liver. Inferior right lobe liver mass measuring 9 cm with some smaller hypodensities in the upper posterior right lobe liver. Soft tissue density in the posterior left hemipelvis, however reading did not compare to previous study from November 2024. Patient presented to the emergency room for progressing weakness over the last 3 days. On admit ultrasound gallbladder showing mildly distended gallbladder lumen without evidence of cholelithiasis or cholecystitis, with numerous metastatic liver lesions noted. Labs reviewed, WBC 9.0, hemoglobin 10.6, platelets 306,000. Creatinine 1.21, GFR 47. Bilirubin elevated at 6.4, AST 576, ALT 395, ALP 2315. Labs in clinic from 03/07 showed bilirubin 3.3, AST 284, ALT 302, ALP 2388. Review of Systems 10 point ROS is negative except as stated in the HPI Past Medical History Past Medical History: Cancer, Deep Vein Thrombosis (DVT), Musculoskeletal Disorder Additional Past Medical History / Comment(s): kidney infection, colon cancer, dvt in leg, ascites, uterine CA, mets to liver, anemia History of Any Multi-Drug Resistant Organisms: None Reported Past Surgical History: Bowel Resection, Heart Catheterization With Stent, Hernia Repair, Orthopedic Surgery Additional Past Surgical History / Comment(s): allison wrist surgery 2009, colon resection 09/08, multi paracentesis Past Anesthesia/Blood Transfusion Reactions: No Reported Reaction Date of Last Stent Placement:: 09/11 Past Psychological History: No Psychological Hx Reported Smoking Status: Former smoker Past Alcohol Use History: Rare Past Drug Use History: None Reported - Past Family History Father Family Medical History: Cancer Mother Family Medical History: Vascular Disorder Medications and Allergies Home Medications Medication Instructions Recorded Confirmed Type Ferrous Sulfate [Iron (65 MG 325 mg PO DAILY 08/27/24 04/04/25 History Elemental)] Atorvastatin [Lipitor] 80 mg PO DAILY 30 Days #30 tab 09/01/24 04/04/25 Rx Metoprolol Tartrate [Lopressor] 25 mg PO BID 30 Days #60 tab 09/01/24 04/04/25 Rx Apixaban [Eliquis] 5 mg PO BID tab 09/14/24 04/04/25 Rx Ticagrelor [Brilinta] 90 mg PO BID tab 09/14/24 04/04/25 Rx Empagliflozin [Jardiance] 10 mg PO DAILY 01/06/25 04/04/25 History Losartan [Cozaar] 25 mg PO DAILY 01/06/25 04/04/25 History amLODIPine [Norvasc] 5 mg PO DAILY 01/06/25 04/04/25 History Pembrolizumab [Keytruda] 400 mg IV Q42D 04/04/25 04/04/25 History Allergies Allergy/AdvReac Type Severity Reaction Status Date / Time No Known Allergies Allergy Verified 04/04/25 07:00 Physical Exam Vitals: Vital Signs Temp Pulse Pulse Resp BP BP Pulse Ox 04/04/25 07:56 98.0 F 76 16 107/68 04/04/25 07:01 76 18 126/72 96 04/04/25 05:49 75 18 97/66 99 04/04/25 02:25 74 18 101/65 97 04/03/25 23:55 71 18 95/66 97 04/03/25 21:46 75 18 116/89 96 04/03/25 17:13 98.8 F 72 18 106/64 97 Intake and Output 04/03/25 04/04/25 04/04/25 22:59 06:59 14:59 Other: Weight 70.307 kg 70.307 kg - Constitutional General appearance: average body habitus, no acute distress - EENT Eyes: EOMI, scleral icterus ENT: hearing grossly normal - Respiratory breathing is even and unlabored - Cardiovascular skin warm and dry - Gastrointestinal General gastrointestinal: soft, no tenderness - Integumentary Integumentary: no cyanotic, jaundiced - Musculoskeletal Musculoskeletal: generalized weakness - Psychiatric Psychiatric: A&O x's 3 Results CBC & Chem 7: 04/04/25 08:53 04/04/25 08:54 Labs: Abnormal Lab Results - Last 24 Hours (Table) 04/03/25 04/03/25 04/03/25 Range/Units 17:58 17:58 17:58 RBC 3.85 L (4.10-5.20) 10*6/uL Hgb 10.6 L (12.0-15.0) g/dL Hct 33.5 L (37.2-46.3) % MCHC 31.6 L (32.0-37.0) g/dL PT 26.2 H (10.0-12.5) sec INR 2.6 H (<1.2) APTT 44.4 H (22.0-30.0) sec Chloride 114 H (98-107) mmol/L Carbon Dioxide 14 L (22-30) mmol/L BUN 27 H (7-17) mg/dL Creatinine 1.21 H (0.52-1.04) mg/dL Total Bilirubin 6.4 H (0.2-1.3) mg/dL AST 576 H (14-36) U/L ALT 395 H (4-34) U/L Alkaline Phosphatase 2315 H (38-126) U/L Albumin 3.1 L (3.5-5.0) g/dL CT scan - abdomen: report reviewed CT scan - pelvis: report reviewed US - abdomen: report reviewed Assessment and Plan (1) Generalized weakness Current Visit: Yes Status: Acute Code(s): R53.1 - WEAKNESS SNOMED Code(s): 36818102 (2) Colon adenocarcinoma Current Visit: Yes Status: Acute Priority: High Code(s): C18.9 - MALIGNANT NEOPLASM OF COLON, UNSPECIFIED SNOMED Code(s): 286694433 Plan: Metastatic colon adenocarcinoma: Presented with progressing weakness over the last 3 days -Oncology history as dictated in the HPI -S/p cycle 2 of keytruda on 03/14/25 -Labs showing progression of transaminitis and hyperbilirubinemia -On admit ultrasound gallbladder showing mildly distended gallbladder lumen without evidence of cholelithiasis or cholecystitis, with numerous metastatic liver lesions noted. -Treatment response CT abdomen pelvis obtained on 03/27/2025 showed mild ascites. Ill-defined hypodense masses within the liver. Inferior right lobe liver mass measuring 9 cm with some smaller hypodensities in the upper posterior right lobe liver. Soft tissue density in the posterior left hemipelvis, however reading was not compared to previous study from November 2024. Will discuss with radiology dept to have scans compared -Concern for progression of disease vs IO induced hepatitis -Will obtain liver MRI for further evaluation Discussed findings and POC with patient. She was agreeable to the same. All questions and concerns were addressed
[2025-04-04] MEDS: ATORVASTATIN 40 MG TAB PO SCH (20:20)
[2025-04-04] MEDS: HYDROmorphone 0.5 MG/0.5 ML SYRINGE IVP PRN (23:39)
[2025-04-05] MEDS: METOPROLOL TARTRATE 25 MG TAB PO SCH (08:52)
[2025-04-05 09:06] LABS: Basophils # (A) 0.08 10*3/uL (0.00-0.10); Basophils % (A) 0.7 %; Eosinophils % (A) 2.5 %; HCT 30.4 % (37.2-46.3); HGB 9.6 g/dL (12.0-15.0); Lymphocytes # (A) 1.34 10*3/uL (0.90-5.00); MCH 26.9 pg (27.0-32.0); MCHC 31.6 g/dL (32.0-37.0); MCV 85.2 fL (80.0-97.0); Mean Platelet Volume 10.8 fL (9.5-12.2); Monocytes # (A) 1.11 10*3/uL (0.20-1.00); Monocytes % (A) 9.1 %; Neutrophils # (A) 9.34 10*3/uL (1.80-7.70); Neutrophils % (A) 76.3 %; Platelet Count 340 10*3/uL (140-440); RBC 3.57 10*6/uL (4.10-5.20); WBC 12.22 10*3/uL (4.50-10.00)
[2025-04-05 09:24] LABS: ALT 405 U/L (4-34); AST 625 U/L (14-36); African American GFR (CKD) 51 (>60 ml/min/1.73 sqM); Albumin 3.2 g/dL (3.5-5.0); Anion Gap 12 mmol/L; Blood Urea Nitrogen 26 mg/dL (7-17); Calcium 9.5 mg/dL (8.4-10.2); Carbon Dioxide 13 mmol/L (22-30); Chloride 114 mmol/L (98-107); Glucose 147 mg/dL (74-99); Non-African American GFR(CKD) 45 (>60 ml/min/1.73 sqM); Potassium 3.6 mmol/L (3.5-5.1); Sodium 139 mmol/L (137-145); Total Bilirubin 6.3 mg/dL (0.2-1.3); Total Protein 6.8 g/dL (6.3-8.2)
--- NOTE | 2025-04-05 09:56 | P.CRDCN ---
History of Present Illness Consult date: 04/05/25 Reason for Consult (text): Critical troponins, abnormal telemetry History of present illness: This is 64-year-old female patient of Dr. Edgar with past medical history of coronary artery disease status post PCI to the mid left circumflex with residual coronary artery disease with [employer] of the OM 2 and left to left collaterals filling retrogradely. Mild disease in the RCA and LAD, moderate aortic regurgitation, mild ascending aortic dilatation of 4.25 cm, chronic systolic heart failure, hypertension. We have been asked to evaluate the patient for critical troponins and abnormal telemetry. Patient states that she came into the hospital because she gradually got weak and she got to the point that she was so weak she could not stand. Regarding colon cancer, patient has restarted Keytruda and is status post cycle 2 on 03/14/2025. Blood pressure 139/80, heart rate 115, pulse ox 95% on room air. -EKG: Sinus rhythm with poor R wave progression -Gallbladder ultrasound: Mild distended gallbladder lumen without cholelithiasis or acute cholecystitis. Numerous metastatic liver lesions. -Laboratory studies: Troponin 0.022, 0.029, 0.053. CEA 58.5. WBC 12.2, hemoglobin 9.6, BUN 26, creatinine 1.27, potassium 3.6. Total bilirubin 6.3, AST 625, ALT 405. -Home cardiac medications: Amlodipine 5 mg daily, Eliquis 5 mg twice daily, ator vastatin 80 mg daily, Jardiance 10 mg daily, ferrous sulfate 325 mg daily, losartan 25 mg daily, metoprolol tartrate 25 mg twice daily, Brilinta 90 mg twice daily. -Echocardiogram Limited study performed at [facility] on 01/06/2025 revealed EF 50 to 55%. No pericardial effusion. Review Of Systems: At the time of my exam: CONSTITUTIONAL: Denies fever or chills. Reports generalized fatigue and weakness HEENT: Denies blurred vision, vision changes, or eye pain. Denies hemoptysis CARDIOVASCULAR: Denies chest pain. Denies orthopnea. Denies PND. Denies palpitations RESPIRATORY: Denies shortness of breath. GASTROINTESTINAL: Denies abdominal pain. Denies nausea or vomiting. HEMATOLOGIC: Denies bleeding disorders. GENITOURINARY: Denies any blood in urine. SKIN: Denies puritis. Denies rash. Physical examination: Gen: This is 64-year-old female in no acute distress VS: reviewed HEENT: Head is atraumatic, normocephalic. Pupils equal, round. Sclerae is anicteric. NECK: Supple. No JVD. LUNGS: Clear to auscultation. No wheezes or rhonchi. No intercostal retractions. HEART: Regular rate and rhythm. Systolic murmur at the apex, systolic murmur at the peristernal area. ABDOMEN: Soft No tenderness. EXTREMITIES: No pedal edema. No calf tenderness. NEUROLOGICAL: Patient is awake, alert and oriented x3. Assessment: Elevated troponin without any clinical evidence of myocardial infarction History of coronary artery disease status post PCI to the mid left circumflex and known residual disease with [employer] of the OM 2, mild disease in the RCA and LAD Colon cancer with metastatic disease to the liver Transaminitis Hyperbilirubinemia Moderate aortic regurgitation Chronic systolic heart failure Hypertension Plan: Resume patient's home cardiac medications Hold statin due to elevated liver function test No need to repeat echocardiogram Further recommendations to follow based upon clinical course Thank you kindly for this consultation. Nurse practitioner note has been reviewed, I agree with documented findings and plan of care. Patient was seen and examined. Past Medical History Past Medical History: Cancer, Deep Vein Thrombosis (DVT), Musculoskeletal Disorder Additional Past Medical History / Comment(s): kidney infection, colon cancer, dvt in leg, ascites, uterine CA, mets to liver, anemia History of Any Multi-Drug Resistant Organisms: None Reported Past Surgical History: Bowel Resection, Heart Catheterization With Stent, Hernia Repair, Orthopedic Surgery Additional Past Surgical History / Comment(s): allison wrist surgery 2009, colon resection 09/08, multi paracentesis Past Anesthesia/Blood Transfusion Reactions: No Reported Reaction Date of Last Stent Placement:: 09/11 Past Psychological History: No Psychological Hx Reported Smoking Status: Former smoker Past Alcohol Use History: Rare Past Drug Use History: None Reported - Past Family History Father Family Medical History: Cancer Mother Family Medical History: Vascular Disorder Medications and Allergies Home Medications Medication Instructions Recorded Confirmed Type Ferrous Sulfate [Iron (65 MG 325 mg PO DAILY 08/27/24 04/04/25 History Elemental)] Atorvastatin [Lipitor] 80 mg PO DAILY 30 Days #30 tab 09/01/24 04/04/25 Rx Metoprolol Tartrate [Lopressor] 25 mg PO BID 30 Days #60 tab 09/01/24 04/04/25 Rx Apixaban [Eliquis] 5 mg PO BID tab 09/14/24 04/04/25 Rx Ticagrelor [Brilinta] 90 mg PO BID tab 09/14/24 04/04/25 Rx Empagliflozin [Jardiance] 10 mg PO DAILY 01/06/25 04/04/25 History Losartan [Cozaar] 25 mg PO DAILY 01/06/25 04/04/25 History amLODIPine [Norvasc] 5 mg PO DAILY 01/06/25 04/04/25 History Pembrolizumab [Keytruda] 400 mg IV Q42D 04/04/25 04/04/25 History Allergies Allergy/AdvReac Type Severity Reaction Status Date / Time No Known Allergies Allergy Verified 04/04/25 07:00 Physical Exam Vitals: Vital Signs Temp Pulse Pulse Resp BP BP Pulse Ox 04/05/25 08:00 97.6 F 115 H 18 139/80 95 04/05/25 04:00 98.1 F 82 18 114/61 95 04/05/25 01:47 98.4 F 112 H 18 122/71 93 L 04/05/25 00:10 98 F 107 H 18 120/76 96 04/04/25 20:19 98.5 F 87 21 136/77 98 04/04/25 16:32 97.9 F 97 16 104/72 96 Intake and Output 04/04/25 04/05/25 04/05/25 22:59 06:59 14:59 Intake Total 625 Output Total 1000 400 Balance -375 -400 Intake: Oral 625 Output: Urine 1000 400 Other: Voiding Method Diaper Diaper External Catheter External Catheter Weight 77.5 kg Results 04/05/25 08:48 04/05/25 08:48 Cardiac Enzymes 04/04/25 Range/Units 22:45 Troponin I 0.053 H* (0.000-0.034) ng/mL CBC 04/04/25 Range/Units 08:53 WBC 9.61 (4.50-10.00) 10*3/uL RBC 3.53 L (4.10-5.20) 10*6/uL Hgb 9.7 L (12.0-15.0) g/dL Hct 30.8 L (37.2-46.3) % Plt Count 360 (140-440) 10*3/uL Comprehensive Metabolic Panel 04/04/25 Range/Units 08:54 Sodium 141 (137-145) mmol/L Potassium 3.6 (3.5-5.1) mmol/L Chloride 114 H (98-107) mmol/L Carbon Dioxide 14 L (22-30) mmol/L BUN 28 H (7-17) mg/dL Creatinine 1.38 H (0.52-1.04) mg/dL Glucose 132 H (74-99) mg/dL Calcium 9.5 (8.4-10.2) mg/dL Current Medications Generic Name Dose Route Start Last Admin Trade Name Freq PRN Reason Stop Dose Admin Apixaban 5 mg 04/03/25 21:15 04/05/25 08:29 Apixaban 5 Mg Tab PO 5 mg BID LAZ Administration Protocol Atorvastatin Calcium 40 mg 04/04/25 21:00 04/04/25 20:20 Atorvastatin 40 Mg Tab PO 40 mg HS LAZ Administration Ferrous Sulfate 325 mg 04/04/25 09:00 04/05/25 08:29 Ferrous Sulfate 325 Mg Tab PO 325 mg DAILY LAZ Administration Hydromorphone HCl 0.5 mg 04/03/25 21:02 04/04/25 23:39 Hydromorphone 0.5 Mg/0.5 Ml Syringe IVP 0.5 mg Q3HR PRN Administration Moderate Pain (Scale 4 to 6) Lactated Ringer's 1,000 mls @ 75 mls/hr 04/04/25 11:30 04/04/25 23:44 Lactated Ringers IV 75 mls/hr .[id number] LAZ Administration Metoprolol Tartrate 25 mg 04/05/25 09:00 Metoprolol Tartrate 25 Mg Tab PO BID LAZ Morphine Sulfate 4 mg 04/03/25 21:02 Morphine Sulfate 4 Mg/Ml Syringe IV Q4HR PRN Severe Pain (Scale 7 to 10) Naloxone HCl 0.2 mg 04/03/25 21:02 Naloxone 0.4 Mg/Ml 1 Ml Vial IV Q2M PRN Opioid Reversal Ondansetron HCl 4 mg 04/03/25 21:02 Ondansetron 4 Mg/2 Ml Vial IVP Q8HR PRN Nausea And Vomiting Ticagrelor 90 mg 04/04/25 11:30 04/05/25 08:29 Ticagrelor 90 Mg Tab PO 90 mg BID LAZ Administration Intake and Output 04/04/25 04/05/25 04/05/25 22:59 06:59 14:59 Intake Total 625 Output Total 1000 400 Balance -375 -400 Intake: Oral 625 Output: Urine 1000 400 Other: Voiding Method Diaper Diaper External Catheter External Catheter Weight 77.5 kg 04/04/25 08:53 04/04/25 08:54
[2025-04-05 09:57] LABS: Alkaline Phosphatase 2617 U/L (38-126)
[2025-04-05 10:04] LABS: Anisocytosis (M) Present
--- NOTE | 2025-04-05 16:17 | P.PN ---
Subjective Progress Note Date: 04/05/25 Patient is a 64-year-old female with history of colon cancer, liver cancer with metastasis (currently on Keytruda last dose about 4 weeks ago, follows with Dr. Cristiane Morales) history of DVT (Eliquis), CAD with x2 stent placement, as transfer from [facility] here for generalized weakness. Patient reported that she has been having generalized weakness for the past 3 days with associated difficulty in ambulating. On day of admission her weakness has gotten significantly worse which led her to seek care. She denied chest pain, palpitations, shortness of breath, extremity swelling, focal weakness, speech changes, vision changes, abdominal pain, urinary frequency, dysuria, diarrhea, loss of appetite. On evaluation at the outside facility she had elevated liver enzymes, BUN and creatinine. She was admitted in December 2024 for influenza with possible left lower pneumonia and was sent home on 3 days of p.o. antibiotics, prednisone taper, tamsulosin and Protonix. On admission: Vitals: Temp 98.8 F, ME 72, RR 18, BP 106/64, O2 saturation 97% on room air Labs: WBC 9.08, hemoglobin 10.6, MCV 87, platelet count 206,000, sodium 140, potassium 3.6, bicarb 14, chloride 114, BUN 27, creatinine 1.2, glucose 91, AST 576, ALT 395, alk phos 2315, albumin 3.1. Troponin was flat at 0.02. Coagulati on studies shows PT 26.2, INR 2.6, PTT 44.4 Imaging: CT abdomen outside facility showed moderate constipation, small ascites, kidney cysts, bilateral right and lower lobe atelectasis.. EKG independently interpreted showed sinus rhythm with a rate of 73, left axis deviation, no ST-T changes, QTc 436 MS Gallbladder ultrasound from our facility showed mildly distended gallbladder lumen without sonographic evidence of cholelithiasis or acute cholecystitis, numerous metastatic liver lesions. 04/05/2025 patient seen and examined at bedside. Converted to A-fib around 5 AM. No new complaints. Cardiology consulted. Ordered troponin and it increased to 0.05. Denied palpitations, shortness of breath or chest pain. Labs: WBC 12.22, hemoglobin 9.6, 77 MCV 85.3, platelet count 340,000, sodium 139 , potassium 3.6, bicarb 13, BUN 26, creatinine 1.27, glucose 147, AST 625, ALT 405, albumin 3.2, total bilirubin 6.3 Review of systems: Pertinent positives and negatives as discussed in HPI, a complete review of systems was performed and all other systems are negative. Social history: Tobacco: Former smoker. Active 22 years 1ppd. Quit 25 years ago. Alcohol: Now decreased intake to occasional intake. Former heavy intake 10 years and drank rum 3 glasses every other day. Recreational drugs: No history of use Travel: no history of prolonged travel Physical examination: Vital signs reviewed General: non toxic, no distress, appears at stated age, room air Derm: no unusual rashes/lesions, warm, jaundice Head: atraumatic, normocephalic, symmetric Eyes: EOMI, icteric sclera, pupils equal round reactive to light ENT: Nose and ears atraumatic Neck: No cervical lymphadenopathy, trachea midline, supple Mouth: no lip lesion, mucus membranes moist Cardiovascular: S1S2 regular, no murmur Lungs: CTA bilateral, no rhonchi, no rales, no accessory muscle use Abdominal: soft, nondistended, nontender to palpation, no guarding Ext: muscle strength 5 out of 5 in all 4 extremities grossly, no gross muscle atrophy, no contractures, positive dorsalis pedis pulse bilateral, no edema Neuro: CN II-XI grossly intact, no gross focal neuro deficits Psych: Alert and oriented x 3, appropriate affect and mood Assessment/Plan: 64-year-old female with history of active colon cancer with metastasis to the liver currently on chemo, history of DVT and CAD is here for evaluation of generalized weakness. Found to have elevated creatinine, elevated liver enzymes, bilirubin and alk phos on labs. The patient is admitted with an anticipated greater than 2 midnight stay for evaluation of OUMOU and debility from active cancer Active: #Acute Kidney Injury, prerenal, improving BUN 27, creatinine 1.21 -> 1.38 -> 1.27 Monitor UO and renal function Avoid nephrotoxic agents IVF Lactated ringers 75 cc/h Renal Ultrasound if does not improve #Anemia of chronic disease, at baseline #Debility #History of colon cancer with metastasis to liver #Hyperbilirubinemia secondary to above #Elevated transaminases secondary to above #Elevated alk phos secondary to above Hemoglobin 10.6 AST ALT increasing Total bilirubin 6.3 Gallbladder ultrasound from our facility showed mildly distended gallbladder lumen without sonographic evidence of cholelithiasis or acute cholecystitis Monitor CBC. Transfuse if hemoglobin less than 7 Currently receiving Keytruda and follows with Dr. Morales Consult heme-onc. Ordered liver MRI to determine progression of disease Consult PT/OT Chronic Conditions: #History of DVT #CAD with stent placement #Hypertension Patient on home Brilinta and Eliquis per therapist phys and patient was aware of adverse effects of bleeding. At current she has no symptoms of bleeding or bruising at this time. Losartan and amlodipine resumed Patient had an episode of AFib that lasted until 10am converted now to Sinus rhythm. Metoprolol resumed by cardiology. DVT ppx: On Eliquis 5 mg p.o. twice daily CODE STATUS: Full Discussed with: Patient Anticipated discharge place: Home Adry Hudson MD PGY-1 Internal Medicine Dictation was produced using [employer] dictation software. please excuse any grammatical, word or spelling errors. Objective - Vital Signs Vital signs: Vital Signs Temp 98.1 F 04/05/25 04:00 Pulse 82 04/05/25 04:00 Resp 18 04/05/25 04:00 BP 114/61 04/05/25 04:00 Pulse Ox 95 04/05/25 04:00 FiO2 Intake & Output 04/04/25 04/05/25 04/05/25 18:59 06:59 18:59 Intake Total 350 500 Output Total 1400 Balance 350 -900 Weight 70.307 kg 77.5 kg Intake: Oral 350 500 Output: Urine 1400 Other: Voiding Method Diaper Diaper External Catheter External Catheter - Labs CBC & Chem 7: 04/05/25 08:48 04/05/25 08:48 Labs: Abnormal Lab Results - Last 24 Hours (Table) 04/04/25 04/04/25 04/04/25 Range/Units 08:53 08:54 08:54 RBC 3.53 L (4.10-5.20) 10*6/uL Hgb 9.7 L (12.0-15.0) g/dL Hct 30.8 L (37.2-46.3) % MCHC 31.5 L (32.0-37.0) g/dL Chloride 114 H (98-107) mmol/L Carbon Dioxide 14 L (22-30) mmol/L BUN 28 H (7-17) mg/dL Creatinine 1.38 H (0.52-1.04) mg/dL Glucose 132 H (74-99) mg/dL Troponin I (0.000-0.034) ng/mL Carcinoembryonic Ag 58.5 H (0.0-4.9) ng/mL 04/04/25 Range/Units 22:45 RBC (4.10-5.20) 10*6/uL Hgb (12.0-15.0) g/dL Hct (37.2-46.3) % MCHC (32.0-37.0) g/dL Chloride (98-107) mmol/L Carbon Dioxide (22-30) mmol/L BUN (7-17) mg/dL Creatinine (0.52-1.04) mg/dL Glucose (74-99) mg/dL Troponin I 0.053 H* (0.000-0.034) ng/mL Carcinoembryonic Ag (0.0-4.9) ng/mL
[2025-04-06 07:07] LABS: Basophils # (A) 0.09 10*3/uL (0.00-0.10); Basophils % (A) 0.6 %; Eosinophils # (A) 0.38 10*3/uL (0.04-0.35); Eosinophils % (A) 2.7 %; HCT 28.5 % (37.2-46.3); HGB 9.2 g/dL (12.0-15.0); Lymphocytes # (A) 1.52 10*3/uL (0.90-5.00); Lymphocytes % (A) 10.8 %; MCH 27.5 pg (27.0-32.0); MCHC 32.3 g/dL (32.0-37.0); MCV 85.1 fL (80.0-97.0); Mean Platelet Volume 10.7 fL (9.5-12.2); Monocytes # (A) 1.43 10*3/uL (0.20-1.00); Monocytes % (A) 10.2 %; Neutrophils # (A) 10.54 10*3/uL (1.80-7.70); Neutrophils % (A) 75.1 %; Platelet Count 341 10*3/uL (140-440); RBC 3.35 10*6/uL (4.10-5.20); RDW 23.3 % (11.5-14.5); WBC 14.04 10*3/uL (4.50-10.00)
[2025-04-06 07:21] LABS: ALT 392 U/L (4-34); AST 602 U/L (14-36); African American GFR (CKD) 55 (>60 ml/min/1.73 sqM); Albumin 2.9 g/dL (3.5-5.0); Anion Gap 9 mmol/L; Blood Urea Nitrogen 26 mg/dL (7-17); Calcium 9.4 mg/dL (8.4-10.2); Carbon Dioxide 16 mmol/L (22-30); Chloride 113 mmol/L (98-107); Glucose 128 mg/dL (74-99); Non-African American GFR(CKD) 48 (>60 ml/min/1.73 sqM); Potassium 3.5 mmol/L (3.5-5.1); Sodium 138 mmol/L (137-145); Total Bilirubin 5.9 mg/dL (0.2-1.3); Total Protein 6.4 g/dL (6.3-8.2)
[2025-04-06 07:47] LABS: Alkaline Phosphatase 2249 U/L (38-126)
[2025-04-06] MEDS: LOSARTAN 25 MG TAB PO SCH (08:37)
[2025-04-06] MEDS: amLODIPine 5 MG TAB PO SCH (08:37)
[2025-04-06 08:49] LABS: Anisocytosis (M) Present
[2025-04-06 08:50] LABS: Poikilocytosis (M) Present
[2025-04-06] MEDS: polyethylene glycoL 3350 17 GM POWD.PACK PO SCH (12:11)
[2025-04-06] MEDS: ACETAMINOPHEN TAB 325 MG TAB PO PRN (12:11)
--- NOTE | 2025-04-06 13:24 | P.PN ---
Subjective Progress Note Date: 04/06/25 Reason for Consult (text): Critical troponins, abnormal telemetry History of present illness: This is 64-year-old female patient of Dr. Edgar with past medical history of coronary artery disease status post PCI to the mid left circumflex with residual coronary artery disease with TOOL RENTAL TECHNICIAN of the OM 2 and left to left collaterals filling retrogradely. Mild disease in the RCA and LAD, moderate aortic regurgitation, mild ascending aortic dilatation of 4.25 cm, chronic systolic heart failure, hypertension. We have been asked to evaluate the patient for cri tical troponins and abnormal telemetry. Patient states that she came into the hospital because she gradually got weak and she got to the point that she was so weak she could not stand. Regarding colon cancer, patient has restarted Keytruda and is status post cycle 2 on 03/14/2025. Blood pressure 139/80, heart rate 115, pulse ox 95% on room air. -EKG: Sinus rhythm with poor R wave progression -Gallbladder ultrasound: Mild distended gallbladder lumen without cholelithiasis or acute cholecystitis. Numerous metastatic liver lesions. -Laboratory studies: Troponin 0.022, 0.029, 0.053. CEA 58.5. WBC 12.2, hemoglobin 9.6, BUN 26, creatinine 1.27, potassium 3.6. Total bilirubin 6.3, AST 625, ALT 405. -Home cardiac medications: Amlodipine 5 mg daily, Eliquis 5 mg twice daily, atorvastatin 80 mg daily, Jardiance 10 mg daily, ferrous sulfate 325 mg daily, losartan 25 mg daily, metoprolol tartrate 25 mg twice daily, Brilinta 90 mg twice daily. -Echocardiogram Limited study performed at [facility] on 01/06/2025 revealed EF 50 to 55%. No pericardial effusion. 04/06/2025 Patient seen and examined. Blood pressure 115/72, heart rate 68, pulse ox 95% on room air. Repeat blood work reveals WBC 15, hemoglobin 9.2, BUN 26 creatinine 1.19 and potassium 3.5. Liver function test are remaining elevated with total bilirubin 5.9, AST 602, ALT 392, alkaline phosphatase 2249. Oncology is on consult Physical examination: Gen: This is 64-year-old female in no acute distress VS: reviewed HEENT: Head is atraumatic, normocephalic. Pupils equal, round. Sclerae is anicteric. NECK: Supple. No JVD. LUNGS: Clear to auscultation. No wheezes or rhonchi. No intercostal retractions. HEART: Regular rate and rhythm. Systolic murmur at the apex, systolic murmur at the peristernal area. ABDOMEN: Soft No tenderness. EXTREMITIES: No pedal edema. No calf tenderness. NEUROLOGICAL: Patient is awake, alert and oriented x3. Assessment: Elevated troponin without any clinical evidence of myocardial infarction History of coronary artery disease status post PCI to the mid left circumflex and known residual disease with TOOL RENTAL TECHNICIAN of the OM 2, mild disease in the RCA and LAD Colon cancer with metastatic disease to the liver Transaminitis Hyperbilirubinemia Moderate aortic regurgitation Chronic systolic heart failure Hypertension Plan: Continue patient's home cardiac medications Hold statin due to elevated liver function test No need to repeat echocardiogram No further cardiac workup at this time Cardiology will sign off this case and follow on an as-needed basis. Please reconsult for any new concerns. Patient may follow-up in the office with Dr. Edgar in one to 2 weeks. Nurse practitioner note has been reviewed, I agree with documented findings and plan of care. Patient was seen and examined. Objective - Vital Signs Vital signs: Vital Signs Temp 99.1 F 04/06/25 08:20 Pulse 68 04/06/25 08:20 Resp 20 04/06/25 08:20 BP 115/72 04/06/25 08:20 Pulse Ox 95 04/06/25 08:20 FiO2 Intake & Output 04/05/25 04/06/25 04/06/25 18:59 06:59 18:59 Intake Total 480 150 128 Output Total 1250 800 Balance -770 -650 128 Weight 70.4 kg Intake: IV 10 Invasive Line 2 10 Intake, IV Titration 150 Amount Lactated Ringers 1,000 ml 150 @ 75 mls/hr IV .[id number] LAZ Rx#:[id number] Oral 480 118 Output: Urine 1250 800 Other: Voiding Method Diaper Diaper Diaper External Catheter External Catheter External Catheter # Voids 3 - Labs CBC & Chem 7: 04/06/25 06:23 04/06/25 06:23 Labs: Abnormal Lab Results - Last 24 Hours (Table) 04/05/25 04/05/25 04/06/25 Range/Units 08:48 08:48 06:23 WBC 12.22 H 14.04 H (4.50-10.00) 10*3/uL RBC 3.57 L 3.35 L (4.10-5.20) 10*6/uL Hgb 9.6 L 9.2 L (12.0-15.0) g/dL Hct 30.4 L 28.5 L (37.2-46.3) % MCH 26.9 L (27.0-32.0) pg MCHC 31.6 L (32.0-37.0) g/dL Immature Gran # 0.05 H 0.08 H (0.00-0.04) 10*3/uL Neutrophils # 9.34 H 10.54 H (1.80-7.70) 10*3/uL Monocytes # 1.11 H 1.43 H (0.20-1.00) 10*3/uL Eosinophils # 0.38 H (0.04-0.35) 10*3/uL Chloride 114 H (98-107) mmol/L Carbon Dioxide 13 L (22-30) mmol/L BUN 26 H (7-17) mg/dL Creatinine 1.27 H (0.52-1.04) mg/dL Glucose 147 H (74-99) mg/dL Total Bilirubin 6.3 H (0.2-1.3) mg/dL AST 625 H (14-36) U/L ALT 405 H (4-34) U/L Alkaline Phosphatase 2617 H (38-126) U/L Albumin 3.2 L (3.5-5.0) g/dL 04/06/25 Range/Units 06:23 WBC (4.50-10.00) 10*3/uL RBC (4.10-5.20) 10*6/uL Hgb (12.0-15.0) g/dL Hct (37.2-46.3) % MCH (27.0-32.0) pg MCHC (32.0-37.0) g/dL Immature Gran # (0.00-0.04) 10*3/uL Neutrophils # (1.80-7.70) 10*3/uL Monocytes # (0.20-1.00) 10*3/uL Eosinophils # (0.04-0.35) 10*3/uL Chloride 113 H (98-107) mmol/L Carbon Dioxide 16 L (22-30) mmol/L BUN 26 H (7-17) mg/dL Creatinine 1.19 H (0.52-1.04) mg/dL Glucose 128 H (74-99) mg/dL Total Bilirubin 5.9 H (0.2-1.3) mg/dL AST 602 H (14-36) U/L ALT 392 H (4-34) U/L Alkaline Phosphatase 2249 H (38-126) U/L Albumin 2.9 L (3.5-5.0) g/dL
[2025-04-06] MEDS: PANTOPRAZOLE 40 MG TABLET PO SCH (14:41)
[2025-04-06] MEDS: predniSONE 50 MG TAB PO SCH (14:41)
[2025-04-06] MEDS: predniSONE 20 MG TAB PO SCH (14:41)
--- NOTE | 2025-04-06 15:07 | P.PN ---
Subjective Progress Note Date: 04/06/25 Patient is a 64-year-old female with history of colon cancer, liver cancer with metastasis (currently on Keytruda last dose about 4 weeks ago, follows with Dr. Cristiane Morales) history of DVT (Eliquis), CAD with x2 stent placement, as transfer from [facility] here for generalized weakness. Patient reported that she has been having generalized weakness for the past 3 days with associated difficulty in ambulating. On day of admission her weakness has gotten significantly worse which led her to seek care. She denied chest pain, palpitations, shortness of breath, extremity swelling, focal weakness, speech changes, vision changes, abdominal pain, urinary frequency, dysuria, diarrhea, loss of appetite. On evaluation at the outside facility she had elevated liver enzymes, BUN and creatinine. She was admitted in December 2024 for influenza with possible left lower pneumonia and was sent home on 3 days of p.o. antibiotics, prednisone taper, tamsulosin and Protonix. On admission: Vitals: Temp 98.8 F, OK 72, RR 18, BP 106/64, O2 saturation 97% on room air Labs: WBC 9.08, hemoglobin 10.6, MCV 87, platelet count 206,000, sodium 140, potassium 3.6, bicarb 14, chloride 114, BUN 27, creatinine 1.2, glucose 91, AST 576, ALT 395, alk phos 2315, albumin 3.1. Troponin was flat at 0.02. Coagulati on studies shows PT 26.2, INR 2.6, PTT 44.4 Imaging: CT abdomen outside facility showed moderate constipation, small ascites, kidney cysts, bilateral right and lower lobe atelectasis.. EKG independently interpreted showed sinus rhythm with a rate of 73, left axis deviation, no ST-T changes, QTc 436 MS Gallbladder ultrasound from our facility showed mildly distended gallbladder lumen without sonographic evidence of cholelithiasis or acute cholecystitis, numerous metastatic liver lesions. 04/05/2025 patient seen and examined at bedside. Converted to A-fib around 5 AM. No new complaints. Cardiology consulted. Ordered troponin and it increased to 0.05. Denied palpitations, shortness of breath or chest pain. Labs: WBC 12.22, hemoglobin 9.6, 77 MCV 85.3, platelet count 340,000, sodium 139 , potassium 3.6, bicarb 13, BUN 26, creatinine 1.27, glucose 147, AST 625, ALT 405, albumin 3.2, total bilirubin 6.3 04/06/2025 patient seen and examined at bedside. No acute events overnight. Having constipation. Still feeling weak. Labs: WBC 14.04, hemoglobin 9.2, platelet count 341,000, sodium 138, potassium 3.5, bicarb 16, BUN 26, creatinine 1.19, glucose 128, bilirubin 5.9, AST 602, ALT 392, alk phos 2249, CEA 58.5, albumin 2.9 Imaging: EKG independently interpreted this morning showed sinus rhythm with a rate of 99, normal axis, prolonged QRS at 150 MS, possible LBBB, QTc 441 MS Review of systems: Pertinent positives and negatives as discussed in HPI, a complete review of systems was performed and all other systems are negative. Social history: Tobacco: Former smoker. Active 22 years 1ppd. Quit 25 years ago. Alcohol: Now decreased intake to occasional intake. Former heavy intake 10 years and drank rum 3 glasses every other day. Recreational drugs: No history of use Travel: no history of prolonged travel Physical examination: Vital signs reviewed General: non toxic, no distress, appears at stated age, room air Derm: no unusual rashes/lesions, warm, jaundice Head: atraumatic, normocephalic, symmetric Eyes: EOMI, icteric sclera, pupils equal round reactive to light ENT: Nose and ears atraumatic Neck: No cervical lymphadenopathy, trachea midline, supple Mouth: no lip lesion, mucus membranes moist Cardiovascular: S1S2 regular, no murmur Lungs: CTA bilateral, no rhonchi, no rales, no accessory muscle use Abdominal: soft, nondistended, nontender to palpation, no guarding Ext: muscle strength 5 out of 5 in all 4 extremities grossly, no gross muscle atrophy, no contractures, positive dorsalis pedis pulse bilateral, no edema Neuro: CN II-XI grossly intact, no gross focal neuro deficits Psych: Alert and oriented x 3, appropriate affect and mood Assessment/Plan: 64-year-old female with history of active colon cancer with metastasis to the liver currently on chemo, history of DVT and CAD is here for evaluation of generalized weakness. Found to have elevated creatinine, elevated liver enzymes, bilirubin and alk phos on labs. The patient is admitted with an anticipated greater than 2 midnight stay for evaluation of OUMOU and debility from active cancer Active: #Acute Kidney Injury, prerenal, improving BUN 27, creatinine 1.21 -> 1.38 -> 1.27 Monitor UO and renal function Avoid nephrotoxic agents IVF 0.45 NS 50cc/hr Renal Ultrasound if does not improve #Anemia of chronic disease, at baseline #Debility #History of colon cancer with metastasis to liver #Hyperbilirubinemia secondary to above #Elevated transaminases secondary to above #Elevated alk phos secondary to above Hemoglobin 9.2 AST ALT increasing Total bilirubin 6.3 Gallbladder ultrasound from our facility showed mildly distended gallbladder lumen without sonographic evidence of cholelithiasis or acute cholecystitis Monitor CBC. Transfuse if hemoglobin less than 7 Currently receiving Keytruda and follows with Dr. Morales Consult heme-onc. Ordered liver MRI to determine progression of disease Consult PT/OT Chronic Conditions: #History of DVT #CAD with stent placement #Hypertension Patient on home Brilinta and Eliquis per early learning teacher and patient was aware of adverse effects of bleeding. At current she has no symptoms of bleeding or bruising at this time. Losartan and amlodipine resumed Patient had an episode of AFib that lasted until 10am converted now to Sinus rhythm. Metoprolol resumed by cardiology. DVT ppx: On Eliquis 5 mg p.o. twice daily CODE STATUS: Full Discussed with: Patient Anticipated discharge place: Home Adry Hudson MD PGY-1 Internal Medicine Dictation was produced using [employer] dictation software. please excuse any grammatical, word or spelling errors. Objective - Vital Signs Vital signs: Vital Signs Temp 98.1 F 04/06/25 04:45 Pulse 71 04/06/25 04:45 Resp 16 04/06/25 04:45 BP 126/75 04/06/25 04:45 Pulse Ox 96 04/06/25 04:45 FiO2 Intake & Output 04/05/25 04/06/25 04/06/25 18:59 06:59 18:59 Intake Total 480 150 Output Total 1250 800 Balance -770 -650 Weight 70.4 kg Intake: Intake, IV Titration 150 Amount Lactated Ringers 1,000 ml 150 @ 75 mls/hr IV .[id number] LAZ Rx#:[id number] Oral 480 Output: Urine 1250 800 Other: Voiding Method Diaper Diaper External Catheter External Catheter # Voids 3 - Labs CBC & Chem 7: 04/06/25 06:23 04/06/25 06:23 Labs: Abnormal Lab Results - Last 24 Hours (Table) 04/05/25 04/05/25 04/06/25 Range/Units 08:48 08:48 06:23 WBC 12.22 H 14.04 H (4.50-10.00) 10*3/uL RBC 3.57 L 3.35 L (4.10-5.20) 10*6/uL Hgb 9.6 L 9.2 L (12.0-15.0) g/dL Hct 30.4 L 28.5 L (37.2-46.3) % MCH 26.9 L (27.0-32.0) pg MCHC 31.6 L (32.0-37.0) g/dL Immature Gran # 0.05 H 0.08 H (0.00-0.04) 10*3/uL Neutrophils # 9.34 H (1.80-7.70) 10*3/uL Monocytes # 1.11 H (0.20-1.00) 10*3/uL Chloride 114 H (98-107) mmol/L Carbon Dioxide 13 L (22-30) mmol/L BUN 26 H (7-17) mg/dL Creatinine 1.27 H (0.52-1.04) mg/dL Glucose 147 H (74-99) mg/dL Total Bilirubin 6.3 H (0.2-1.3) mg/dL AST 625 H (14-36) U/L ALT 405 H (4-34) U/L Alkaline Phosphatase 2617 H (38-126) U/L Albumin 3.2 L (3.5-5.0) g/dL 04/06/25 Range/Units 06:23 WBC (4.50-10.00) 10*3/uL RBC (4.10-5.20) 10*6/uL Hgb (12.0-15.0) g/dL Hct (37.2-46.3) % MCH (27.0-32.0) pg MCHC (32.0-37.0) g/dL Immature Gran # (0.00-0.04) 10*3/uL Neutrophils # (1.80-7.70) 10*3/uL Monocytes # (0.20-1.00) 10*3/uL Chloride 113 H (98-107) mmol/L Carbon Dioxide 16 L (22-30) mmol/L BUN 26 H (7-17) mg/dL Creatinine 1.19 H (0.52-1.04) mg/dL Glucose 128 H (74-99) mg/dL Total Bilirubin 5.9 H (0.2-1.3) mg/dL AST 602 H (14-36) U/L ALT 392 H (4-34) U/L Alkaline Phosphatase 2249 H (38-126) U/L Albumin 2.9 L (3.5-5.0) g/dL
--- NOTE | 2025-04-06 15:19 | P.PN ---
Subjective Progress Note Date: 04/06/25 No acute events overnight. Pt denies n/v and pain. Reports persisting generalized weakness Objective - Vital Signs Vital signs: Vital Signs Temp 99.6 F 04/06/25 11:19 Pulse 93 04/06/25 11:19 Resp 16 04/06/25 11:19 BP 101/67 04/06/25 11:19 Pulse Ox 97 04/06/25 11:19 FiO2 Intake & Output 04/05/25 04/06/25 04/06/25 18:59 06:59 18:59 Intake Total 480 150 128 Output Total 1250 800 Balance -770 -650 128 Weight 70.4 kg Intake: IV 10 Invasive Line 2 10 Intake, IV Titration 150 Amount Lactated Ringers 1,000 ml 150 @ 75 mls/hr IV .[id number] LAZ Rx#:[id number] Oral 480 118 Output: Urine 1250 800 Other: Voiding Method Diaper Diaper Diaper External Catheter External Catheter External Catheter # Voids 3 1 # Bowel Movements 1 - Constitutional General appearance: Present: average body habitus, no acute distress - EENT Eyes: Present: EOMI, scleral icterus ENT: Present: hearing grossly normal - Respiratory Details: breathing is even and unlabored - Cardiovascular Details: skin warm and dry - Gastrointestinal General gastrointestinal: Present: soft. Absent: tenderness - Integumentary Integumentary: Present: jaundiced. Absent: cyanotic - Musculoskeletal Musculoskeletal: Present: generalized weakness - Psychiatric Psychiatric: Present: A&O x's 3 - Labs CBC & Chem 7: 04/06/25 06:23 04/06/25 06:23 Labs: Abnormal Lab Results - Last 24 Hours (Table) 04/06/25 04/06/25 Range/Units 06:23 06:23 WBC 14.04 H (4.50-10.00) 10*3/uL RBC 3.35 L (4.10-5.20) 10*6/uL Hgb 9.2 L (12.0-15.0) g/dL Hct 28.5 L (37.2-46.3) % Immature Gran # 0.08 H (0.00-0.04) 10*3/uL Neutrophils # 10.54 H (1.80-7.70) 10*3/uL Monocytes # 1.43 H (0.20-1.00) 10*3/uL Eosinophils # 0.38 H (0.04-0.35) 10*3/uL Chloride 113 H (98-107) mmol/L Carbon Dioxide 16 L (22-30) mmol/L BUN 26 H (7-17) mg/dL Creatinine 1.19 H (0.52-1.04) mg/dL Glucose 128 H (74-99) mg/dL Total Bilirubin 5.9 H (0.2-1.3) mg/dL AST 602 H (14-36) U/L ALT 392 H (4-34) U/L Alkaline Phosphatase 2249 H (38-126) U/L Albumin 2.9 L (3.5-5.0) g/dL - Imaging and Cardiology CT scan - abdomen: report reviewed CT scan - pelvis: report reviewed Assessment and Plan (1) Generalized weakness Current Visit: Yes Status: Acute Code(s): R53.1 - WEAKNESS SNOMED Code(s): 79340802 (2) Colon adenocarcinoma Current Visit: Yes Status: Acute Priority: High Code(s): C18.9 - MALIGNANT NEOPLASM OF COLON, UNSPECIFIED SNOMED Code(s): 785180597 Plan: Metastatic colon adenocarcinoma: Presented with progressing weakness over the last 3 days -Oncology history as dictated in the HPI -S/p cycle 2 of keytruda on 03/14/25 -Labs showing progression of transaminitis and hyperbilirubinemia -On admit ultrasound gallbladder showing mildly distended gallbladder lumen with out evidence of cholelithiasis or cholecystitis, with numerous metastatic liver lesions noted. -Treatment response CT abdomen pelvis obtained on 03/27/2025 showed mild ascites. Ill-defined hypodense masses within the liver. Inferior right lobe liver mass measuring 9 cm with some smaller hypodensities in the upper posterior right lobe liver. Soft tissue density in the posterior left hemipelvis, however reading was not compared to previous study from November 2024. Will discuss with radiology dept to have scans compared -Addendum to prior CT AP, showing disease is overall stable. With progression of transaminitis and hyperbilirubinemia, concern for IO induced hepatitis -Prednisone 1mg/kg started. Will plan for taper over the next 6 weeks. PPI prophylaxis -Liver MRI pending Discussed findings and POC with patient. She was agreeable to the same. All questions and concerns were addressed
[2025-04-06] MEDS: SODIUM CHLORIDE 0.45% 1,000 ML IV SCH (16:51)
[2025-04-07 07:41] LABS: Basophils # (A) 0.05 10*3/uL (0.00-0.10); Basophils % (A) 0.2 %; HCT 30.9 % (37.2-46.3); Lymphocytes # (A) 1.22 10*3/uL (0.90-5.00); Lymphocytes % (A) 5.3 %; MCH 27.5 pg (27.0-32.0); MCHC 32.4 g/dL (32.0-37.0); MCV 85.1 fL (80.0-97.0); Mean Platelet Volume 11.3 fL (9.5-12.2); Monocytes # (A) 0.59 10*3/uL (0.20-1.00); Monocytes % (A) 2.6 %; Neutrophils # (A) 20.92 10*3/uL (1.80-7.70); Neutrophils % (A) 90.8 %; Platelet Count 413 10*3/uL (140-440); RBC 3.63 10*6/uL (4.10-5.20); RDW 23.3 % (11.5-14.5); WBC 23.04 10*3/uL (4.50-10.00)
[2025-04-07 09:04] LABS: ALT 411 U/L (4-34); AST 540 U/L (14-36); African American GFR (CKD) 57 (>60 ml/min/1.73 sqM); Albumin 3.3 g/dL (3.5-5.0); Anion Gap 15 mmol/L; Blood Urea Nitrogen 37 mg/dL (7-17); Carbon Dioxide 12 mmol/L (22-30); Chloride 110 mmol/L (98-107); Glucose 183 mg/dL (74-99); Non-African American GFR(CKD) 50 (>60 ml/min/1.73 sqM); Potassium 3.9 mmol/L (3.5-5.1); Sodium 137 mmol/L (137-145); Total Bilirubin 6.6 mg/dL (0.2-1.3)
[2025-04-07 09:22] LABS: Alkaline Phosphatase 2493 U/L (38-126)
[2025-04-07 11:09] LABS: Anisocytosis (M) Present; Polychromasia Present
--- NOTE | 2025-04-07 15:29 | P.PN ---
Subjective Progress Note Date: 04/07/25 Patient is a 64-year-old female with history of colon cancer, liver cancer with metastasis (currently on Keytruda last dose about 4 weeks ago, follows with Dr. Cristiane Morales) history of DVT (Eliquis), CAD with x2 stent placement, as transfer from [facility] here for generalized weakness. Patient reported that she has been having generalized weakness for the past 3 days with associated difficulty in ambulating. On day of admission her weakness has gotten significantly worse which led her to seek care. She denied chest pain, palpitations, shortness of breath, extremity swelling, focal weakness, speech changes, vision changes, abdominal pain, urinary frequency, dysuria, diarrhea, loss of appetite. On evaluation at the outside facility she had elevated liver enzymes, BUN and creatinine. She was admitted in December 2024 for influenza with possible left lower pneumonia and was sent home on 3 days of p.o. antibiotics, prednisone taper, tamsulosin and Protonix. On admission: Vitals: Temp 98.8 F, DE 72, RR 18, BP 106/64, O2 saturation 97% on room air Labs: WBC 9.08, hemoglobin 10.6, MCV 87, platelet count 206,000, sodium 140, potassium 3.6, bicarb 14, chloride 114, BUN 27, creatinine 1.2, glucose 91, AST 576, ALT 395, alk phos 2315, albumin 3.1. Troponin was flat at 0.02. Coagulati on studies shows PT 26.2, INR 2.6, PTT 44.4 Imaging: CT abdomen outside facility showed moderate constipation, small ascites, kidney cysts, bilateral right and lower lobe atelectasis.. EKG independently interpreted showed sinus rhythm with a rate of 73, left axis deviation, no ST-T changes, QTc 436 MS Gallbladder ultrasound from our facility showed mildly distended gallbladder lumen without sonographic evidence of cholelithiasis or acute cholecystitis, numerous metastatic liver lesions. 04/05/2025 patient seen and examined at bedside. Converted to A-fib around 5 AM. No new complaints. Cardiology consulted. Ordered troponin and it increased to 0.05. Denied palpitations, shortness of breath or chest pain. Labs: WBC 12.22, hemoglobin 9.6, 77 MCV 85.3, platelet count 340,000, sodium 139 , potassium 3.6, bicarb 13, BUN 26, creatinine 1.27, glucose 147, AST 625, ALT 405, albumin 3.2, total bilirubin 6.3 04/06/2025 patient seen and examined at bedside. No acute events overnight. Having constipation. Still feeling weak. Labs: WBC 14.04, hemoglobin 9.2, platelet count 341,000, sodium 138, potassium 3.5, bicarb 16, BUN 26, creatinine 1.19, glucose 128, bilirubin 5.9, AST 602, ALT 392, alk phos 2249, CEA 58.5, albumin 2.9 Imaging: EKG independently interpreted this morning showed sinus rhythm with a rate of 99, normal axis, prolonged QRS at 150 MS, possible LBBB, QTc 441 MS 04/07/2025 patient seen and examined at bedside. No acute events overnight. Had 4 bowel movements Labs: WBC 23.04, hemoglobin 10, platelet count 413, sodium 137, potassium 3.9, bicarb 12, BUN 37, creatinine 1.16, glucose 183, total bilirubin 6.6, AST 540, ALT 411, alk phos 11/22/1992, albumin 3.3 Review of systems: Pertinent positives and negatives as discussed in HPI, a complete review of systems was performed and all other systems are negative. Social history: Tobacco: Former smoker. Active 22 years 1ppd. Quit 25 years ago. Alcohol: Now decreased intake to occasional intake. Former heavy intake 10 years and drank rum 3 glasses every other day. Recreational drugs: No history of use Travel: no history of prolonged travel Physical examination: Vital signs reviewed General: non toxic, no distress, appears at stated age, room air Derm: no unusual rashes/lesions, warm, jaundice Head: atraumatic, normocephalic, symmetric Eyes: EOMI, icteric sclera, pupils equal round reactive to light ENT: Nose and ears atraumatic Neck: No cervical lymphadenopathy, trachea midline, supple Mouth: no lip lesion, mucus membranes moist Cardiovascular: S1S2 regular, no murmur Lungs: CTA bilateral, no rhonchi, no rales, no accessory muscle use Abdominal: soft, nondistended, nontender to palpation, no guarding Ext: muscle strength 5 out of 5 in all 4 extremities grossly, no gross muscle atrophy, no contractures, positive dorsalis pedis pulse bilateral, no edema Neuro: CN II-XI grossly intact, no gross focal neuro deficits Psych: Alert and oriented x 3, appropriate affect and mood Assessment/Plan: 64-year-old female with history of active colon cancer with metastasis to the liver currently on chemo, history of DVT and CAD is here for evaluation of generalized weakness. Found to have elevated creatinine, elevated liver enzymes, bilirubin and alk phos on labs. The patient is admitted with an anticipated greater than 2 midnight stay for evaluation of OUMOU and debility from active cancer Active: #Acute Kidney Injury, prerenal, improving Cr 1.16 today Monitor UO and renal function Avoid nephrotoxic agents IVF 0.45 NS discontinued #Anemia of chronic disease, at baseline #Leukocytosis in the setting of malignancy and steroid use #Debility #History of colon cancer with metastasis to liver #Hyperbilirubinemia secondary to above #Elevated transaminases secondary to above #Elevated alk phos secondary to above Hemoglobin 10 AST ALT improving Total bilirubin 6.6 Gallbladder ultrasound from our facility showed mildly distended gallbladder lumen without sonographic evidence of cholelithiasis or acute cholecystitis Monitor CBC. Transfuse if hemoglobin less than 7 Currently receiving Keytruda and follows with Dr. Morales Consult heme-onc. Ordered liver MRI to determine progression of disease. Initiated prednisone p.o Consult PT/OT. 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 At current she has no symptoms of bleeding or bruising at this time. Losartan and amlodipine resumed Patient had an episode of AFib that lasted until 10am converted now to Sinus rhythm. Metoprolol resumed by cardiology. DVT ppx: On Eliquis 5 mg p.o. twice daily CODE STATUS: Full Discussed with: Patient Anticipated discharge place: Home Adry Hudson MD PGY-1 Internal Medicine Dictation was produced using [employer] dictation software. please excuse any gram matical, word or spelling errors. Objective - Vital Signs Vital signs: Vital Signs Temp 98.5 F 04/07/25 02:56 Pulse 97 04/07/25 02:56 Resp 16 04/07/25 02:56 BP 116/75 04/07/25 02:56 Pulse Ox 97 04/07/25 02:56 FiO2 Intake & Output 04/06/25 04/07/25 04/07/25 18:59 06:59 18:59 Intake Total 246 550 Output Total 1000 400 Balance -754 150 Weight 70.1 kg Intake: IV 10 Invasive Line 2 10 Intake, IV Titration 550 Amount Sodium Chloride 0.45% 1, 550 000 ml @ 50 mls/hr IV . Q20H [facility] Rx#:[id number] Oral 236 Output: Urine 1000 400 Other: Voiding Method Diaper Diaper External Catheter External Catheter # Voids 1 1 # Bowel Movements 1 1 - Labs CBC & Chem 7: 04/07/25 07:16 04/07/25 07:16 Labs: Abnormal Lab Results - Last 24 Hours (Table) 04/06/25 04/07/25 Range/Units 06:23 07:16 WBC 23.04 H (4.50-10.00) 10*3/uL RBC 3.63 L (4.10-5.20) 10*6/uL Hgb 10.0 L (12.0-15.0) g/dL Hct 30.9 L (37.2-46.3) % Immature Gran # 0.26 H (0.00-0.04) 10*3/uL Neutrophils # 10.54 H (1.80-7.70) 10*3/uL Monocytes # 1.43 H (0.20-1.00) 10*3/uL Eosinophils # 0.38 H (0.04-0.35) 10*3/uL
--- NOTE | 2025-04-07 21:13 | P.PN ---
Subjective Progress Note Date: 04/07/25 No acute events overnight. Pt reporting feeling somewhat improved today but still weak. Denies n/v and pain, tolerating oral intake Objective - Vital Signs Vital signs: Vital Signs Temp 98.6 F 04/07/25 15:49 Pulse 69 04/07/25 15:49 Resp 14 04/07/25 15:49 BP 102/70 04/07/25 15:49 Pulse Ox 95 04/07/25 15:49 FiO2 Intake & Output 04/06/25 04/07/25 04/07/25 18:59 06:59 18:59 Intake Total 246 550 Output Total 1000 400 750 Balance -754 150 -750 Weight 70.1 kg Intake: IV 10 Invasive Line 2 10 Intake, IV Titration 550 Amount Sodium Chloride 0.45% 1, 550 000 ml @ 50 mls/hr IV . Q20H [facility] Rx#:[id number] Oral 236 Output: Urine 1000 400 750 Other: Voiding Method Diaper Diaper Diaper External Catheter External Catheter External Catheter # Voids 1 1 1 # Bowel Movements 1 1 1 - Constitutional General appearance: Present: average body habitus, no acute distress - EENT Eyes: Present: EOMI, scleral icterus ENT: Present: hearing grossly normal - Respiratory Details: breathing is even and unlabored - Cardiovascular Details: skin warm and dry - Gastrointestinal General gastrointestinal: Present: soft. Absent: tenderness - Integumentary Integumentary: Present: jaundiced - Musculoskeletal Musculoskeletal: Present: generalized weakness - Psychiatric Psychiatric: Present: A&O x's 3 - Labs CBC & Chem 7: 04/07/25 07:16 04/07/25 07:16 Labs: Abnormal Lab Results - Last 24 Hours (Table) 04/07/25 04/07/25 Range/Units 07:16 07:16 WBC 23.04 H (4.50-10.00) 10*3/uL RBC 3.63 L (4.10-5.20) 10*6/uL Hgb 10.0 L (12.0-15.0) g/dL Hct 30.9 L (37.2-46.3) % Immature Gran # 0.26 H (0.00-0.04) 10*3/uL Neutrophils # 20.92 H (1.80-7.70) 10*3/uL Eosinophils # 0.00 L (0.04-0.35) 10*3/uL Chloride 110 H (98-107) mmol/L Carbon Dioxide 12 L (22-30) mmol/L BUN 37 H (7-17) mg/dL Creatinine 1.16 H (0.52-1.04) mg/dL Glucose 183 H (74-99) mg/dL Total Bilirubin 6.6 H (0.2-1.3) mg/dL AST 540 H (14-36) U/L ALT 411 H (4-34) U/L Alkaline Phosphatase 2493 H (38-126) U/L Albumin 3.3 L (3.5-5.0) g/dL Assessment and Plan (1) Generalized weakness Current Visit: Yes Status: Acute Code(s): R53.1 - WEAKNESS SNOMED Code(s): 08580712 (2) Colon adenocarcinoma Current Visit: Yes Status: Acute Priority: High Code(s): C18.9 - MALIGNANT NEOPLASM OF COLON, UNSPECIFIED SNOMED Code(s): 310607301 Plan: Metastatic colon adenocarcinoma: -Oncology history as dictated in the HPI -S/p cycle 2 of keytruda on 03/14/25 -Labs showing progression of transaminitis and hyperbilirubinemia -On admit ultrasound gallbladder showing mildly distended gallbladder lumen without evidence of cholelithiasis or cholecystitis, with numerous metastatic liver lesions noted. -Treatment response CT abdomen pelvis obtained on 03/27/2025 showed mild ascites. Ill-defined hypodense masses within the liver. Inferior right lobe liver mass measuring 9 cm with some smaller hypodensities in the upper posterior right lobe liver. Soft tissue density in the posterior left hemipelvis, however reading was not compared to previous study from November 2024. Will discuss with radiology dept to have scans compared -Addendum to prior CT AP, showing disease is overall stable. With progression of transaminitis and hyperbilirubinemia, concern for IO induced hepatitis -Prednisone 1mg/kg taper started. Will taper over the next 7 weeks, starting at 70mg daily x 7 days, tapering down 10mg every 7 days, ending with 10mg daily x 7 days -PPI prophylaxis added -Liver MRI pending Plan for discharge is to SNF, cancer treatment will be held until discharged from rehab
[2025-04-08 07:48] LABS: Basophils # (A) 0.05 10*3/uL (0.00-0.10); Basophils % (A) 0.2 %; HCT 27.8 % (37.2-46.3); Lymphocytes # (A) 1.57 10*3/uL (0.90-5.00); Lymphocytes % (A) 4.8 %; MCH 27.4 pg (27.0-32.0); MCHC 32.4 g/dL (32.0-37.0); MCV 84.8 fL (80.0-97.0); Monocytes # (A) 2.05 10*3/uL (0.20-1.00); Monocytes % (A) 6.3 %; Neutrophils # (A) 28.58 10*3/uL (1.80-7.70); Neutrophils % (A) 87.3 %; Platelet Count 403 10*3/uL (140-440); RBC 3.28 10*6/uL (4.10-5.20); RDW 23.7 % (11.5-14.5); WBC 32.71 10*3/uL (4.50-10.00)
[2025-04-08 08:06] LABS: ALT 419 U/L (4-34); AST 407 U/L (14-36); African American GFR (CKD) 47 (>60 ml/min/1.73 sqM); Albumin 3.2 g/dL (3.5-5.0); Anion Gap 13 mmol/L; Blood Urea Nitrogen 50 mg/dL (7-17); Calcium 9.5 mg/dL (8.4-10.2); Carbon Dioxide 14 mmol/L (22-30); Chloride 109 mmol/L (98-107); Glucose 158 mg/dL (74-99); Non-African American GFR(CKD) 41 (>60 ml/min/1.73 sqM); Potassium 4.4 mmol/L (3.5-5.1); Sodium 136 mmol/L (137-145); Total Protein 6.7 g/dL (6.3-8.2)
[2025-04-08 08:21] LABS: Alkaline Phosphatase 2282 U/L (38-126)
[2025-04-08 08:52] LABS: Anisocytosis (M) Present
[2025-04-08] MEDS ORDERED: polyethylene glycoL 3350 17 GM POWD.PACK PO PRN (13:24)
--- NOTE | 2025-04-08 13:52 | P.PN ---
Subjective Progress Note Date: 04/08/25 Patient is a 64-year-old female with history of colon cancer, liver cancer with metastasis (currently on Keytruda last dose about 4 weeks ago, follows with Dr. Cristiane Morales) history of DVT (Eliquis), CAD with x2 stent placement, as transfer from [facility] here for generalized weakness. Patient reported that she has been having generalized weakness for the past 3 days with associated difficulty in ambulating. On day of admission her weakness has gotten significantly worse which led her to seek care. She denied chest pain, palpitations, shortness of breath, extremity swelling, focal weakness, speech changes, vision changes, abdominal pain, urinary frequency, dysuria, diarrhea, loss of appetite. On evaluation at the outside facility she had elevated liver enzymes, BUN and creatinine. She was admitted in December 2024 for influenza with possible left lower pneumonia and was sent home on 3 days of p.o. antibiotics, prednisone taper, tamsulosin and Protonix. On admission: Vitals: Temp 98.8 F, NV 72, RR 18, BP 106/64, O2 saturation 97% on room air Labs: WBC 9.08, hemoglobin 10.6, MCV 87, platelet count 206,000, sodium 140, potassium 3.6, bicarb 14, chloride 114, BUN 27, creatinine 1.2, glucose 91, AST 576, ALT 395, alk phos 2315, albumin 3.1. Troponin was flat at 0.02. Coagulati on studies shows PT 26.2, INR 2.6, PTT 44.4 Imaging: CT abdomen outside facility showed moderate constipation, small ascites, kidney cysts, bilateral right and lower lobe atelectasis.. EKG independently interpreted showed sinus rhythm with a rate of 73, left axis deviation, no ST-T changes, QTc 436 MS Gallbladder ultrasound from our facility showed mildly distended gallbladder lumen without sonographic evidence of cholelithiasis or acute cholecystitis, numerous metastatic liver lesions. 04/05/2025 patient seen and examined at bedside. Converted to A-fib around 5 AM. No new complaints. Cardiology consulted. Ordered troponin and it increased to 0.05. Denied palpitations, shortness of breath or chest pain. Labs: WBC 12.22, hemoglobin 9.6, 77 MCV 85.3, platelet count 340,000, sodium 139 , potassium 3.6, bicarb 13, BUN 26, creatinine 1.27, glucose 147, AST 625, ALT 405, albumin 3.2, total bilirubin 6.3 04/06/2025 patient seen and examined at bedside. No acute events overnight. Having constipation. Still feeling weak. Labs: WBC 14.04, hemoglobin 9.2, platelet count 341,000, sodium 138, potassium 3.5, bicarb 16, BUN 26, creatinine 1.19, glucose 128, bilirubin 5.9, AST 602, ALT 392, alk phos 2249, CEA 58.5, albumin 2.9 Imaging: EKG independently interpreted this morning showed sinus rhythm with a rate of 99, normal axis, prolonged QRS at 150 MS, possible LBBB, QTc 441 MS 04/07/2025 patient seen and examined at bedside. No acute events overnight. Had 4 bowel movements Labs: WBC 23.04, hemoglobin 10, platelet count 413, sodium 137, potassium 3.9, bicarb 12, BUN 37, creatinine 1.16, glucose 183, total bilirubin 6.6, AST 540, ALT 411, alk phos 11/22/1992, albumin 3.3 04/08/2025 patient seen and examined at bedside. No acute events overnight. Patient increased oral intake. Jaundice improving Labs: WBC 32.7, hemoglobin 9, MCV 84.8, sodium 136, potassium 4.4, chloride 109, bicarb 14, BUN 50, creatinine 1.37, glucose 158, bilirubin 6, AST 407, ALT 419, alk phos 2282, albumin 3.2 Review of systems: Pertinent positives and negatives as discussed in HPI, a complete review of systems was performed and all other systems are negative. Social history: Tobacco: Former smoker. Active 22 years 1ppd. Quit 25 years ago. Alcohol: Now decreased intake to occasional intake. Former heavy intake 10 years and drank rum 3 glasses every other day. Recreational drugs: No history of use Travel: no history of prolonged travel Physical examination: Vital signs reviewed General: non toxic, no distress, appears at stated age, room air Derm: no unusual rashes/lesions, warm, jaundice Head: atraumatic, normocephalic, symmetric Eyes: EOMI, icteric sclera, pupils equal round reactive to light ENT: Nose and ears atraumatic Neck: No cervical lymphadenopathy, trachea midline, supple Mouth: no lip lesion, mucus membranes moist Cardiovascular: S1S2 regular, no murmur Lungs: CTA bilateral, no rhonchi, no rales, no accessory muscle use Abdominal: soft, nondistended, nontender to palpation, no guarding Ext: muscle strength 5 out of 5 in all 4 extremities grossly, no gross muscle atrophy, no contractures, positive dorsalis pedis pulse bilateral, no edema Neuro: CN II-XI grossly intact, no gross focal neuro deficits Psych: Alert and oriented x 3, appropriate affect and mood Assessment/Plan: 64-year-old female with history of active colon cancer with metastasis to the liver currently on chemo, history of DVT and CAD is here for evaluation of generalized weakness. Found to have elevated creatinine, elevated liver enzymes, bilirubin and alk phos on labs. The patient is admitted with an anticipated greater than 2 midnight stay for evaluation of OUMOU and debility from active cancer Active: #Acute Kidney Injury, prerenal, improving Cr 1.37 today Monitor UO and renal function Avoid nephrotoxic agents IVF 0.9 NS 50cc/h #Anemia of chronic disease, at baseline #Leukocytosis in the setting of malignancy and steroid use #Debility #History of colon cancer with metastasis to liver #Hyperbilirubinemia secondary to above #Elevated transaminases secondary to above #Elevated alk phos secondary to above Hemoglobin 9 AST ALT improving Total bilirubin 6 patient afebrile Gallbladder ultrasound from our facility showed mildly distended gallbladder lumen without cholelithiasis or acute cholecystitis Monitor CBC. Transfuse if hemoglobin less than 7 Consult heme-onc. Pending liver MRI to determine progression of disease. Initiated prednisone p.o Consult PT/OT. 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 At current she has no symptoms of bleeding or bruising at this time. Losartan and amlodipine resumed Patient had an episode of AFib that lasted until 10am converted now to Sinus rhythm. Metoprolol resumed by cardiology. DVT ppx: On Eliquis 5 mg p.o. twice daily CODE STATUS: Full Discussed with: Patient Anticipated discharge place: Home Adry Hudson MD PGY-1 Internal Medicine Dictation was produced using [employer] dictation software. please excuse any grammatical, word or spelling errors. Objective - Vital Signs Vital signs: Vital Signs Temp 97.5 F L 04/08/25 03:12 Pulse 68 04/08/25 03:12 Resp 14 04/08/25 03:12 BP 117/74 04/08/25 03:12 Pulse Ox 95 04/08/25 03:12 FiO2 Intake & Output 04/07/25 04/08/25 04/08/25 18:59 06:59 18:59 Output Total 750 650 Balance -750 -650 Weight 71.5 kg Output: Urine 750 650 Other: Voiding Method Diaper Diaper External Catheter External Catheter # Voids 1 # Bowel Movements 1 - Labs CBC & Chem 7: 04/08/25 07:09 04/08/25 07:09 Labs: Abnormal Lab Results - Last 24 Hours (Table) 04/07/25 04/07/25 Range/Units 07:16 07:16 Neutrophils # 20.92 H (1.80-7.70) 10*3/uL Eosinophils # 0.00 L (0.04-0.35) 10*3/uL Chloride 110 H (98-107) mmol/L Carbon Dioxide 12 L (22-30) mmol/L BUN 37 H (7-17) mg/dL Creatinine 1.16 H (0.52-1.04) mg/dL Glucose 183 H (74-99) mg/dL Total Bilirubin 6.6 H (0.2-1.3) mg/dL AST 540 H (14-36) U/L ALT 411 H (4-34) U/L Alkaline Phosphatase 2493 H (38-126) U/L Albumin 3.3 L (3.5-5.0) g/dL
--- NOTE | 2025-04-08 14:00 | MR ---
MRI liver with contrast HISTORY: Colon cancer rule out metastatic. COMPARISON: 03/11/2022. TECHNIQUE: Multiecho multiplanar images of the liver and upper abdomen were obtained with and without contrast. FINDINGS: There are multiple ill-defined heterogeneously enhancing masses within the right and left lobe of the liver. The largest lesion is a 9.9 cm lesion in the lateral segment left lobe of the liver. The seco nd largest lesion is in the right lobe of liver and is approximately 6 and multiple smaller lesions i n the dome of the liver. Gallbladder is normal. There is no biliary ductal dilatation. There is no focal mass of the pancreas, spleen or adrenal glands. There are no solid renal masses is a simple cortical cyst of the lateral left kidney. Caliber of the abdominal aorta is normal. No retroperitoneal adenopathy. Visualized bowel loops are normal in caliber and there is no evidence of obstruction. IMPRESSION: Multiple masses ill-defined heterogeneous masses within both right and left lobe liver consistent wit h metastatic disease. No other significant abnormality seen upper abdomen. [facility], Workstation: CARIE 04/08/2025 1:58 PM
[2025-04-08] MEDS: SODIUM CHLORIDE 0.9% 1,000 ML IV SCH (21:56)
[2025-04-09 08:10] LABS: HCT 26.3 % (37.2-46.3); HGB 8.4 g/dL (12.0-15.0); MCH 27.5 pg (27.0-32.0); MCHC 31.9 g/dL (32.0-37.0); MCV 86.2 fL (80.0-97.0); Mean Platelet Volume 10.9 fL (9.5-12.2); Platelet Count 399 10*3/uL (140-440); RBC 3.05 10*6/uL (4.10-5.20); RDW 23.9 % (11.5-14.5); WBC 34.07 10*3/uL (4.50-10.00)
[2025-04-09 08:27] LABS: African American GFR (CKD) 39 (>60 ml/min/1.73 sqM); Anion Gap 13 mmol/L; Blood Urea Nitrogen 63 mg/dL (7-17); Calcium 9.5 mg/dL (8.4-10.2); Carbon Dioxide 14 mmol/L (22-30); Chloride 110 mmol/L (98-107); Glucose 152 mg/dL (74-99); Non-African American GFR(CKD) 34 (>60 ml/min/1.73 sqM); Potassium 4.8 mmol/L (3.5-5.1); Sodium 137 mmol/L (137-145)
[2025-04-09 13:44] LABS: Bilirubin, Conjugated 1.5 mg/dL (0.0-0.3); Bilirubin, Delta 2.3 mg/dL (0.0-0.2); Bilirubin,Unconjugated 1.2 mg/dL (0.0-1.1); Total Protein 6.2 g/dL (6.3-8.2)
--- NOTE | 2025-04-09 15:03 | P.PN ---
Subjective Progress Note Date: 04/09/25 Principal diagnosis: Metastatic MSI high colon cancer - Afebrile, no acute events overnight - Continues to feel weak with no abdominal pain, nausea, vomiting, or diarrhea Objective - Vital Signs Vital signs: Vital Signs Temp 97.4 F L 04/09/25 12:10 Pulse 99 04/09/25 12:10 Resp 14 04/09/25 12:10 BP 107/69 04/09/25 12:10 Pulse Ox 95 04/09/25 12:10 FiO2 Intake & Output 04/08/25 04/09/25 04/09/25 18:59 06:59 18:59 Intake Total 360 120 200 Output Total 250 850 650 Balance 110 -730 -450 Weight 72.7 kg Intake: Oral 360 120 200 Output: Urine 250 850 650 Other: Voiding Method Diaper Diaper External Catheter External Catheter # Bowel Movements 2 1 - Constitutional General appearance: Present: cooperative, no acute distress - EENT Eyes: Present: scleral icterus - Respiratory Details: Nonlabored breathing - Cardiovascular Details: Warm and well-perfused - Gastrointestinal General gastrointestinal: Present: soft. Absent: distended, tenderness - Integumentary Integumentary: Present: jaundiced, pale. Absent: rash - Neurologic Neurologic: Present: CNII-XII intact. Absent: focal deficits - Labs CBC & Chem 7: 04/09/25 07:03 04/09/25 07:03 Labs: Abnormal Lab Results - Last 24 Hours (Table) 04/09/25 04/09/25 Range/Units 07:03 07:03 WBC 34.07 H (4.50-10.00) 10*3/uL RBC 3.05 L (4.10-5.20) 10*6/uL Hgb 8.4 L (12.0-15.0) g/dL Hct 26.3 L (37.2-46.3) % MCHC 31.9 L (32.0-37.0) g/dL Chloride 110 H (98-107) mmol/L Carbon Dioxide 14 L (22-30) mmol/L BUN 63 H (7-17) mg/dL Creatinine 1.58 H (0.52-1.04) mg/dL Glucose 152 H (74-99) mg/dL Assessment and Plan Plan: Metastatic colon adenocarcinoma: -Oncology history as dictated in the HPI -S/p cycle 2 of keytruda on 03/14/25 -Labs showing progression of transaminitis and hyperbilirubinemia -On admit ultrasound gallbladder showing mildly distended gallbladder lumen without evidence of cholelithiasis or cholecystitis, with numerous metastatic liver lesions noted. -Treatment response CT abdomen pelvis obtained on 03/27/2025 showed mild ascites. Ill-defined hypodense masses within the liver. Inferior right lobe liver mass measuring 9 cm with some smaller hypodensities in the upper posterior right lobe liver. Soft tissue density in the posterior left hemipelvis, however reading was not compared to previous study from November 2024. Will discuss with radiology dept to have scans compared -Addendum to prior CT AP, showing disease is overall stable. With progression of transaminitis and hyperbilirubinemia, concern for IO induced hepatitis -Liver MRI revealing known metastatic disease in the bilateral hepatic lobes with no evidence of biliary obstruction, lending more concern for potential immunotherapy induced hepatitis -Prednisone 1mg/kg taper started 04/06/2025 with improvement in LFTs today -Continue is on 1 mg/kg daily for total of 7 days with taper by 10 mg every week -Continue to monitor LFTs daily Plan for discharge is to SNF, cancer treatment will be held until discharged from rehab Edith Morales MD
--- NOTE | 2025-04-09 17:24 | P.PN ---
Subjective Progress Note Date: 04/09/25 History of present illness: This is 64-year-old female patient of Dr. 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 Mild disease in the RCA and LAD, moderate aortic regurgitation, mild ascending aortic dilatation of 4.25 cm, chronic systolic heart failure, hypertension. We have been asked to evaluate the patient for critical troponins and abnormal telemetry. Patient states that she came into the hospital because she gradually got weak and she got to the point that she was so weak she could not stand. Regarding colon cancer, patient has restarted Keytruda and is status post cycle 2 on 03/14/2025. Blood pressure 139/80, heart rate 115, pulse ox 95% on room air. -EKG: Sinus rhythm with poor R wave progression -Gallbladder ultrasound: Mild distended gallbladder lumen without cholelithiasis or acute cholecystitis. Numerous metastatic liver lesions. -Laboratory studies: Troponin 0.022, 0.029, 0.053. CEA 58.5. WBC 12.2, hemogl obin 9.6, BUN 26, creatinine 1.27, potassium 3.6. Total bilirubin 6.3, AST 625, ALT 405. -Home cardiac medications: Amlodipine 5 mg daily, Eliquis 5 mg twice daily, atorvastatin 80 mg daily, Jardiance 10 mg daily, ferrous sulfate 325 mg daily, losartan 25 mg daily, metoprolol tartrate 25 mg twice daily, Brilinta 90 mg twice daily. -Echocardiogram Limited study performed at [facility] on 01/06/2025 revealed EF 50 to 55%. No pericardial effusion. 04/06/2025 Patient seen and examined. Blood pressure 115/72, heart rate 68, pulse ox 95% on room air. Repeat blood work reveals WBC 15, hemoglobin 9.2, BUN 26 creatinine 1.19 and potassium 3.5. Liver function test are remaining elevated with total bilirubin 5.9, AST 602, ALT 392, alkaline phosphatase 2249. Oncology is on consult 04/09/2025 Advisory Internship was reconsulted by the nurse because patient was having atrial fibrillation with RVR. Patient's telemetry was reviewed and she is in A-fib with heart rates around 110-120s. On evaluation she denies any symptoms of chest pain chest pressure or shortness of breath at this time. She is very weak and is dealing with her liver issues at this time. She appears jaundiced Physical examination: Icterus present NECK: Supple. No JVD. LUNGS: Clear to auscultation. No wheezes or rhonchi. No intercostal retractions. HEART: Irregular pulse, systolic and diastolic murmur. ABDOMEN: Soft No tenderness. EXTREMITIES: No pedal edema. No calf tenderness. NEUROLOGICAL: Patient is awake, alert and oriented x3. Assessment: Elevated troponin without any clinical evidence of myocardial infarction History of coronary artery disease status post PCI to the mid left circumflex and known residual disease with TYPEWRITER REPAIRER of the OM 2, mild disease in the RCA and LAD Colon cancer with metastatic disease to the liver Transaminitis with Hyperbilirubinemia suggestive of acute liver failure Moderate aortic regurgitation Chronic systolic heart failure Hypertension Plan: Continue Brilinta, Eliquis. I will elect to do Plavix and Eliquis however because of her liver failure which was Brilinta as Plavix metabolized in liver. Discontinue amlodipine because of borderline blood pressure Increase metoprolol to 50 mg twice daily, continue losartan 25 g daily Hold statin due to elevated liver function test No need to repeat echocardiogram Cardiology will sign off. Please reconsult us in case of any question. Outpatient follow-up with Dr. Edgar Objective - Vital Signs Vital signs: Vital Signs Temp 98.2 F 04/09/25 17:15 Pulse 93 04/09/25 17:15 Resp 14 04/09/25 17:15 BP 111/84 04/09/25 17:15 Pulse Ox 93 L 04/09/25 17:15 FiO2 Intake & Output 04/08/25 04/09/25 04/09/25 18:59 06:59 18:59 Intake Total 360 120 318 Output Total 417 397 4372 Balance 110 -170 882 Weight 72.7 kg Intake: Oral 360 120 318 Output: Urine 055 399 7659 Other: Voiding Method Diaper Diaper Diaper External Catheter External Catheter External Catheter # Bowel Movements 2 1 1 - Labs CBC & Chem 7: 04/09/25 07:03 04/09/25 07:03 Labs: Abnormal Lab Results - Last 24 Hours (Table) 04/09/25 04/09/25 04/09/25 Range/Units 07:03 07:03 07:03 WBC 34.07 H (4.50-10.00) 10*3/uL RBC 3.05 L (4.10-5.20) 10*6/uL Hgb 8.4 L (12.0-15.0) g/dL Hct 26.3 L (37.2-46.3) % MCHC 31.9 L (32.0-37.0) g/dL Chloride 110 H (98-107) mmol/L Carbon Dioxide 14 L (22-30) mmol/L BUN 63 H (7-17) mg/dL Creatinine 1.58 H (0.52-1.04) mg/dL Glucose 152 H (74-99) mg/dL Total Bilirubin 5.0 H (0.2-1.3) mg/dL Conjugated Bilirubin 1.5 H (0.0-0.3) mg/dL Unconjugated Bilirubin 1.2 H (0.0-1.1) mg/dL Delta Bilirubin 2.3 H (0.0-0.2) mg/dL AST 311 H (14-36) U/L ALT 397 H (4-34) U/L Alkaline Phosphatase 2200 H (38-126) U/L Total Protein 6.2 L (6.3-8.2) g/dL Albumin 3.0 L (3.5-5.0) g/dL
[2025-04-09] MEDS ORDERED: ZINC OXIDE PASTE (Z-GUARD) 1 APPLIC TOPICAL PRN (18:17)
[2025-04-09] MEDS: METOPROLOL TARTRATE 50 MG TAB PO SCH (20:13)
--- NOTE | 2025-04-09 21:20 | P.PN ---
Subjective Progress Note Date: 04/09/25 Patient is a 64-year-old female with history of colon cancer, liver cancer with metastasis (currently on Keytruda last dose about 4 weeks ago, follows with Dr. Cristiane Morales) history of DVT (Eliquis), CAD with x2 stent placement, as transfer from [facility] here for generalized weakness. Patient reported that she has been having generalized weakness for the past 3 days with associated difficulty in ambulating. On day of admission her weakness has gotten significantly worse which led her to seek care. She denied chest pain, palpitations, shortness of breath, extremity swelling, focal weakness, speech changes, vision changes, abdominal pain, urinary frequency, dysuria, diarrhea, loss of appetite. On evaluation at the outside facility she had elevated liver enzymes, BUN and creatinine. She was admitted in December 2024 for influenza with possible left lower pneumonia and was sent home on 3 days of p.o. antibiotics, prednisone taper, tamsulosin and Protonix. On admission: Vitals: Temp 98.8 F, AK 72, RR 18, BP 106/64, O2 saturation 97% on room air Labs: WBC 9.08, hemoglobin 10.6, MCV 87, platelet count 206,000, sodium 140, potassium 3.6, bicarb 14, chloride 114, BUN 27, creatinine 1.2, glucose 91, AST 576, ALT 395, alk phos 2315, albumin 3.1. Troponin was flat at 0.02. Coagulati on studies shows PT 26.2, INR 2.6, PTT 44.4 Imaging: CT abdomen outside facility showed moderate constipation, small ascites, kidney cysts, bilateral right and lower lobe atelectasis.. EKG independently interpreted showed sinus rhythm with a rate of 73, left axis deviation, no ST-T changes, QTc 436 MS Gallbladder ultrasound from our facility showed mildly distended gallbladder lumen without sonographic evidence of cholelithiasis or acute cholecystitis, numerous metastatic liver lesions. 04/05/2025 patient seen and examined at bedside. Converted to A-fib around 5 AM. No new complaints. Cardiology consulted. Ordered troponin and it increased to 0.05. Denied palpitations, shortness of breath or chest pain. Labs: WBC 12.22, hemoglobin 9.6, 77 MCV 85.3, platelet count 340,000, sodium 139 , potassium 3.6, bicarb 13, BUN 26, creatinine 1.27, glucose 147, AST 625, ALT 405, albumin 3.2, total bilirubin 6.3 04/06/2025 patient seen and examined at bedside. No acute events overnight. Having constipation. Still feeling weak. Labs: WBC 14.04, hemoglobin 9.2, platelet count 341,000, sodium 138, potassium 3.5, bicarb 16, BUN 26, creatinine 1.19, glucose 128, bilirubin 5.9, AST 602, ALT 392, alk phos 2249, CEA 58.5, albumin 2.9 Imaging: EKG independently interpreted this morning showed sinus rhythm with a rate of 99, normal axis, prolonged QRS at 150 MS, possible LBBB, QTc 441 MS 04/07/2025 patient seen and examined at bedside. No acute events overnight. Had 4 bowel movements Labs: WBC 23.04, hemoglobin 10, platelet count 413, sodium 137, potassium 3.9, bicarb 12, BUN 37, creatinine 1.16, glucose 183, total bilirubin 6.6, AST 540, ALT 411, alk phos 11/22/1992, albumin 3.3 04/08/2025 patient seen and examined at bedside. No acute events overnight. Patient increased oral intake. Jaundice improving Labs: WBC 32.7, hemoglobin 9, MCV 84.8, sodium 136, potassium 4.4, chloride 109, bicarb 14, BUN 50, creatinine 1.37, glucose 158, bilirubin 6, AST 407, ALT 419, alk phos 2282, albumin 3.2 04/09/2025 Patient is sitting in the recliner. Awake alert and oriented x 3. Feels about the same as yesterday. Generalized weakness. No cough or sputum production. No complaints of abdominal pain. Patient is being continued on prednisone 70 mg daily and IV hydration with normal saline at 50 cc/h. Laboratory data showed WBC 34.07, hemoglobin 8.4 and platelets 399 sodium 137 potassium 4.8 chloride 110 bicarb is 14 BUN 63 and creatinine 1.58 and blood sugar 152. Total bili 5.0, AST 311 ALT 397 and alk phos 2200. Albumin 3.0. MRI of the liver showed multiple masses ill-defined heterogenous masses within both the right and left lobe liver consistent with metastatic disease. No other significant abnormality seen upper abdomen. Review of systems: Pertinent positives and negatives as discussed in HPI, a complete review of systems was performed and all other systems are negative. Social history: Tobacco: Former smoker. Active 22 years 1ppd. Quit 25 years ago. Alcohol: Now decreased intake to occasional intake. Former heavy intake 10 years and drank rum 3 glasses every other day. Recreational drugs: No history of use Travel: no history of prolonged travel Physical examination: Vital signs reviewed General: non toxic, no distress, appears at stated age, room air Derm: no unusual rashes/lesions, warm, jaundice Head: atraumatic, normocephalic, symmetric Eyes: EOMI, icteric sclera, pupils equal round reactive to light ENT: Nose and ears atraumatic Neck: No cervical lymphadenopathy, trachea midline, supple Mouth: no lip lesion, mucus membranes moist Cardiovascular: S1S2 regular, no murmur Lungs: CTA bilateral, no rhonchi, no rales, no accessory muscle use Abdominal: soft, nondistended, nontender to palpation, no guarding Ext: muscle strength 5 out of 5 in all 4 extremities grossly, no gross muscle atrophy, no contractures, positive dorsalis pedis pulse bilateral, no edema Neuro: CN II-XI grossly intact, no gross focal neuro deficits Psych: Alert and oriented x 3, appropriate affect and mood Assessment/Plan: 64-year-old female with history of active colon cancer with metastasis to the liver currently on chemo, history of DVT and CAD is here for evaluation of generalized weakness. Found to have elevated creatinine, elevated liver enzymes, bilirubin and alk phos on labs. The patient is admitted with an anticipated greater than 2 midnight stay for evaluation of OUMOU and debility from active cancer Active: #Acute Kidney Injury, prerenal, Cr 1.37- today Monitor UO and renal function Avoid nephrotoxic agents IVF 0.9 NS 50cc/h #Anemia of chronic disease, at baseline #Leukocytosis in the setting of malignancy and steroid use #Debility #History of colon cancer with metastasis to liver #Hyperbilirubinemia secondary to above #Elevated transaminases secondary to above #Elevated alk phos secondary to above Hemoglobin 9 AST ALT improving Total bilirubin 6 patient afebrile Gallbladder ultrasound from our facility showed mildly distended gallbladder lumen without cholelithiasis or acute cholecystitis Monitor CBC. Transfuse if hemoglobin less than 7 Consult heme-onc. MRI of the liver showed multiple masses ill-defined heterogenous masses within both right and left liver lobe consistent with metastatic disease.. Initiated prednisone p.o 70 mg daily. Consult PT/OT. 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 At current she has no symptoms of bleeding or bruising at this time. Continue with losartan. Amlodipine on hold due to low blood pressure. Patient had an episode of AFib that lasted until 10am converted now to Sinus rhythm. Metoprolol resumed by cardiology. Continue with metoprolol 50 mg twice daily. Colon cancer with metastasis to liver currently on chemotherapy. DVT ppx: On Eliquis 5 mg p.o. twice daily CODE STATUS: Full Discussed with: Patient Anticipated discharge place: Home Dictation was produced using [employer] dictation software. please excuse any grammatical, word or spelling errors. Objective - Vital Signs Vital signs: Vital Signs Temp 97.4 F L 04/09/25 12:10 Pulse 99 04/09/25 12:10 Resp 14 04/09/25 12:10 BP 107/69 04/09/25 12:10 Pulse Ox 95 04/09/25 12:10 FiO2 Intake & Output 04/08/25 04/09/25 04/09/25 18:59 06:59 18:59 Intake Total 360 120 318 Output Total 454 127 4970 Balance 110 -730 -882 Weight 72.7 kg Intake: Oral 360 120 318 Output: Urine 846 490 6797 Other: Voiding Method Diaper Diaper Diaper External Catheter External Catheter External Catheter # Bowel Movements 2 1 1 - Labs CBC & Chem 7: 04/09/25 07:03 04/09/25 07:03 Labs: Abnormal Lab Results - Last 24 Hours (Table) 04/09/25 04/09/25 04/09/25 Range/Units 07:03 07:03 07:03 WBC 34.07 H (4.50-10.00) 10*3/uL RBC 3.05 L (4.10-5.20) 10*6/uL Hgb 8.4 L (12.0-15.0) g/dL Hct 26.3 L (37.2-46.3) % MCHC 31.9 L (32.0-37.0) g/dL Chloride 110 H (98-107) mmol/L Carbon Dioxide 14 L (22-30) mmol/L BUN 63 H (7-17) mg/dL Creatinine 1.58 H (0.52-1.04) mg/dL Glucose 152 H (74-99) mg/dL Total Bilirubin 5.0 H (0.2-1.3) mg/dL Conjugated Bilirubin 1.5 H (0.0-0.3) mg/dL Unconjugated Bilirubin 1.2 H (0.0-1.1) mg/dL Delta Bilirubin 2.3 H (0.0-0.2) mg/dL AST 311 H (14-36) U/L ALT 397 H (4-34) U/L Alkaline Phosphatase 2200 H (38-126) U/L Total Protein 6.2 L (6.3-8.2) g/dL Albumin 3.0 L (3.5-5.0) g/dL Assessment and Plan Time with Patient: Greater than 30
[2025-04-10 06:09] LABS: Basophils # (A) 0.06 10*3/uL (0.00-0.10); Basophils % (A) 0.2 %; HCT 23.3 % (37.2-46.3); HGB 7.4 g/dL (12.0-15.0); Lymphocytes # (A) 2.82 10*3/uL (0.90-5.00); Lymphocytes % (A) 7.8 %; MCHC 31.8 g/dL (32.0-37.0); MCV 88.3 fL (80.0-97.0); Mean Platelet Volume 10.6 fL (9.5-12.2); Monocytes # (A) 3.26 10*3/uL (0.20-1.00); Neutrophils # (A) 28.43 10*3/uL (1.80-7.70); Neutrophils % (A) 78.7 %; Platelet Count 362 10*3/uL (140-440); RBC 2.64 10*6/uL (4.10-5.20); RDW 24.3 % (11.5-14.5); WBC 36.12 10*3/uL (4.50-10.00)
[2025-04-10 06:19] LABS: ALT 333 U/L (4-34); AST 227 U/L (14-36); African American GFR (CKD) 46 (>60 ml/min/1.73 sqM); Albumin 2.8 g/dL (3.5-5.0); Anion Gap 13 mmol/L; Blood Urea Nitrogen 73 mg/dL (7-17); Calcium 9.4 mg/dL (8.4-10.2); Carbon Dioxide 13 mmol/L (22-30); Chloride 110 mmol/L (98-107); Glucose 141 mg/dL (74-99); Non-African American GFR(CKD) 40 (>60 ml/min/1.73 sqM); Potassium 4.4 mmol/L (3.5-5.1); Sodium 136 mmol/L (137-145); Total Bilirubin 4.4 mg/dL (0.2-1.3); Total Protein 5.8 g/dL (6.3-8.2)
[2025-04-10 06:51] LABS: Alkaline Phosphatase 1689 U/L (38-126)
--- NOTE | 2025-04-10 14:51 | P.PN ---
Subjective Progress Note Date: 04/10/25 Patient is a 64-year-old female with history of colon cancer, liver cancer with metastasis (currently on Keytruda last dose about 4 weeks ago, follows with Dr. Cristiane Morales) history of DVT (Eliquis), CAD with x2 stent placement, as transfer from [facility] here for generalized weakness. Patient reported that she has been having generalized weakness for the past 3 days with associated difficulty in ambulating. On day of admission her weakness has gotten significantly worse which led her to seek care. She denied chest pain, palpitations, shortness of breath, extremity swelling, focal weakness, speech changes, vision changes, abdominal pain, urinary frequency, dysuria, diarrhea, loss of appetite. On evaluation at the outside facility she had elevated liver enzymes, BUN and creatinine. She was admitted in December 2024 for influenza with possible left lower pneumonia and was sent home on 3 days of p.o. antibiotics, prednisone taper, tamsulosin and Protonix. On admission: Vitals: Temp 98.8 F, PA 72, RR 18, BP 106/64, O2 saturation 97% on room air Labs: WBC 9.08, hemoglobin 10.6, MCV 87, platelet count 206,000, sodium 140, potassium 3.6, bicarb 14, chloride 114, BUN 27, creatinine 1.2, glucose 91, AST 576, ALT 395, alk phos 2315, albumin 3.1. Troponin was flat at 0.02. Coagulati on studies shows PT 26.2, INR 2.6, PTT 44.4 Imaging: CT abdomen outside facility showed moderate constipation, small ascites, kidney cysts, bilateral right and lower lobe atelectasis.. EKG independently interpreted showed sinus rhythm with a rate of 73, left axis deviation, no ST-T changes, QTc 436 MS Gallbladder ultrasound from our facility showed mildly distended gallbladder lumen without sonographic evidence of cholelithiasis or acute cholecystitis, numerous metastatic liver lesions. 04/05/2025 patient seen and examined at bedside. Converted to A-fib around 5 AM. No new complaints. Cardiology consulted. Ordered troponin and it increased to 0.05. Denied palpitations, shortness of breath or chest pain. Labs: WBC 12.22, hemoglobin 9.6, 77 MCV 85.3, platelet count 340,000, sodium 139 , potassium 3.6, bicarb 13, BUN 26, creatinine 1.27, glucose 147, AST 625, ALT 405, albumin 3.2, total bilirubin 6.3 04/06/2025 patient seen and examined at bedside. No acute events overnight. Having constipation. Still feeling weak. Labs: WBC 14.04, hemoglobin 9.2, platelet count 341,000, sodium 138, potassium 3.5, bicarb 16, BUN 26, creatinine 1.19, glucose 128, bilirubin 5.9, AST 602, ALT 392, alk phos 2249, CEA 58.5, albumin 2.9 Imaging: EKG independently interpreted this morning showed sinus rhythm with a rate of 99, normal axis, prolonged QRS at 150 MS, possible LBBB, QTc 441 MS 04/07/2025 patient seen and examined at bedside. No acute events overnight. Had 4 bowel movements Labs: WBC 23.04, hemoglobin 10, platelet count 413, sodium 137, potassium 3.9, bicarb 12, BUN 37, creatinine 1.16, glucose 183, total bilirubin 6.6, AST 540, ALT 411, alk phos 11/22/1992, albumin 3.3 04/08/2025 patient seen and examined at bedside. No acute events overnight. Patient increased oral intake. Jaundice improving Labs: WBC 32.7, hemoglobin 9, MCV 84.8, sodium 136, potassium 4.4, chloride 109, bicarb 14, BUN 50, creatinine 1.37, glucose 158, bilirubin 6, AST 407, ALT 419, alk phos 2282, albumin 3.2 04/09/2025 Patient is sitting in the recliner. Awake alert and oriented x 3. Feels about the same as yesterday. Generalized weakness. No cough or sputum production. No complaints of abdominal pain. Patient is being continued on prednisone 70 mg daily and IV hydration with normal saline at 50 cc/h. Laboratory data showed WBC 34.07, hemoglobin 8.4 and platelets 399 sodium 137 potassium 4.8 chloride 110 bicarb is 14 BUN 63 and creatinine 1.58 and blood sugar 152. Total bili 5.0, AST 311 ALT 397 and alk phos 2200. Albumin 3.0. MRI of the liver showed multiple masses ill-defined heterogenous masses within both the right and left lobe liver consistent with metastatic disease. No other significant abnormality seen upper abdomen. 04/10/2025 patient seen and examined at bedside. No acute events overnight. No new complaints Labs: WBC 36.12, hemoglobin 7.4, platelet count 362,000, MCV 88.3, sodium 136, potassium 4.4, bicarb 13, BUN 73, creatinine 1.39, glucose 141, total bilirubin 4.4, AST 227, ALT 333, alk phos 1689, albumin 2.8 Imaging: EKG today showed sinus tachycardia with a rate of 135 bpm, no ST-T changes, QTc 386 MS Review of systems: Pertinent positives and negatives as discussed in HPI, a complete review of systems was performed and all other systems are negative. Social history: Tobacco: Former smoker. Active 22 years 1ppd. Quit 25 years ago. Alcohol: Now decreased intake to occasional intake. Former heavy intake 10 years and drank rum 3 glasses every other day. Recreational drugs: No history of use Travel: no history of prolonged travel Physical examination: Vital signs reviewed General: non toxic, no distress, appears at stated age, room air Derm: no unusual rashes/lesions, warm, jaundice Head: atraumatic, normocephalic, symmetric Eyes: EOMI, icteric sclera, pupils equal round reactive to light ENT: Nose and ears atraumatic Neck: No cervical lymphadenopathy, trachea midline, supple Mouth: no lip lesion, mucus membranes moist Cardiovascular: S1S2 regular, no murmur Lungs: CTA bilateral, no rhonchi, no rales, no accessory muscle use Abdominal: soft, nondistended, nontender to palpation, no guarding Ext: muscle strength 5 out of 5 in all 4 extremities grossly, no gross muscle atrophy, no contractures, positive dorsalis pedis pulse bilateral, no edema Neuro: CN II-XI grossly intact, no gross focal neuro deficits Psych: Alert and oriented x 3, appropriate affect and mood Assessment/Plan: 64-year-old female with history of active colon cancer with metastasis to the liver currently on chemo, history of DVT and CAD is here for evaluation of generalized weakness. Found to have elevated creatinine, elevated liver enzymes, bilirubin and alk phos on labs. The patient is admitted with an anticipated greater than 2 midnight stay for evaluation of OUMOU and debility from active cancer Active: #Acute Kidney Injury, prerenal, improving Cr 1.39 today Monitor UO and renal function Avoid nephrotoxic agents IVF 0.9 NS 50cc/h #Anemia of chronic disease, at baseline #Leukocytosis in the setting of malignancy and steroid use #Debility #History of colon cancer with metastasis to liver #Hyperbilirubinemia secondary to above, improving #Elevated transaminases secondary to above, improving #Elevated alk phos secondary to above, improving Hemoglobin 7.4 AST ALT improving Total bilirubin 6 patient afebrile Gallbladder ultrasound from our facility showed mildly distended gallbladder lumen without cholelithiasis or acute cholecystitis Monitor CBC. Transfuse if hemoglobin less than 7 Consult heme-onc. MRI of the liver showed multiple masses ill-defined hetero genous masses within both right and left liver lobe consistent with metastatic disease. Initiated prednisone p.o 70 mg daily. Consult PT/OT. Recommended ROSALBA on d/c. SW/CM working on discharge needs. Chronic Conditions: #History of DVT #CAD with stent placement #Hypertension Patient on home Brilinta and Eliquis per [facility] operator and patient was aware of adverse effects of bleeding. At current she has no symptoms of bleeding or bruising at this time. Continue with losartan. Amlodipine on hold due to low blood pressure. Patient had an episode of AFib that lasted until 10am converted now to Sinus rhythm. Metoprolol resumed by cardiology. Continue with metoprolol 50 mg twice daily. Colon cancer with metastasis to liver currently on chemotherapy. DVT ppx: On Eliquis 5 mg p.o. twice daily CODE STATUS: Full Discussed with: Patient Anticipated discharge place: Home Adry Hudson MD PGY-1 Internal Medicine Dictation was produced using [employer] dictation software. please excuse any grammatical, word or spelling errors. Attestation: I have seen and examined this patient with my resident, assessment and plan discussed with the resident, agree with assessment and plan as written above. Dr. Charles Objective - Vital Signs Vital signs: Vital Signs Temp 97.9 F 04/10/25 02:52 Pulse 70 04/10/25 02:52 Resp 18 04/10/25 02:52 BP 125/79 04/10/25 02:52 Pulse Ox 95 04/10/25 02:52 FiO2 Intake & Output 04/09/25 04/10/25 04/10/25 18:59 06:59 18:59 Intake Total 658 420 Output Total 1200 1150 Balance -542 -730 Weight 77.4 kg Intake: IV 20 Invasive Line 2 20 Oral 658 400 Output: Urine 1200 1150 Other: Voiding Method Diaper Diaper External Catheter External Catheter # Voids 1 # Bowel Movements 1 1 - Labs CBC & Chem 7: 04/10/25 05:34 04/10/25 05:34 Labs: Abnormal Lab Results - Last 24 Hours (Table) 04/09/25 04/09/25 04/09/25 Range/Units 07:03 07:03 07:03 WBC 34.07 H (4.50-10.00) 10*3/uL RBC 3.05 L (4.10-5.20) 10*6/uL Hgb 8.4 L (12.0-15.0) g/dL Hct 26.3 L (37.2-46.3) % MCHC 31.9 L (32.0-37.0) g/dL Immature Gran # (0.00-0.04) 10*3/uL Neutrophils # (1.80-7.70) 10*3/uL Monocytes # (0.20-1.00) 10*3/uL Eosinophils # (0.04-0.35) 10*3/uL Sodium (137-145) mmol/L Chloride 110 H (98-107) mmol/L Carbon Dioxide 14 L (22-30) mmol/L BUN 63 H (7-17) mg/dL Creatinine 1.58 H (0.52-1.04) mg/dL Glucose 152 H (74-99) mg/dL Total Bilirubin 5.0 H (0.2-1.3) mg/dL Conjugated Bilirubin 1.5 H (0.0-0.3) mg/dL Unconjugated Bilirubin 1.2 H (0.0-1.1) mg/dL Delta Bilirubin 2.3 H (0.0-0.2) mg/dL AST 311 H (14-36) U/L ALT 397 H (4-34) U/L Alkaline Phosphatase 2200 H (38-126) U/L Total Protein 6.2 L (6.3-8.2) g/dL Albumin 3.0 L (3.5-5.0) g/dL 04/10/25 04/10/25 Range/Units 05:34 05:34 WBC 36.12 H (4.50-10.00) 10*3/uL RBC 2.64 L (4.10-5.20) 10*6/uL Hgb 7.4 L (12.0-15.0) g/dL Hct 23.3 L (37.2-46.3) % MCHC 31.8 L (32.0-37.0) g/dL Immature Gran # 1.55 H (0.00-0.04) 10*3/uL Neutrophils # 28.43 H (1.80-7.70) 10*3/uL Monocytes # 3.26 H (0.20-1.00) 10*3/uL Eosinophils # 0.00 L (0.04-0.35) 10*3/uL Sodium 136 L (137-145) mmol/L Chloride 110 H (98-107) mmol/L Carbon Dioxide 13 L (22-30) mmol/L BUN 73 H (7-17) mg/dL Creatinine 1.39 H (0.52-1.04) mg/dL Glucose 141 H (74-99) mg/dL Total Bilirubin 4.4 H (0.2-1.3) mg/dL Conjugated Bilirubin (0.0-0.3) mg/dL Unconjugated Bilirubin (0.0-1.1) mg/dL Delta Bilirubin (0.0-0.2) mg/dL AST 227 H (14-36) U/L ALT 333 H (4-34) U/L Alkaline Phosphatase 1689 H (38-126) U/L Total Protein 5.8 L (6.3-8.2) g/dL Albumin 2.8 L (3.5-5.0) g/dL
[2025-04-10 14:58] VITALS: BMI 29.2
[2025-04-10] MEDS: MORPHINE SULFATE 4 MG/ML SYRINGE IV PRN (21:41)
[2025-04-11] MEDS: METOPROLOL TARTRATE 12.5 MG TAB PO STA (05:05)
[2025-04-11 08:47] LABS: HCT 23.8 % (37.2-46.3); HGB 7.5 g/dL (12.0-15.0); MCH 28.3 pg (27.0-32.0); MCHC 31.5 g/dL (32.0-37.0); MCV 89.8 fL (80.0-97.0); Mean Platelet Volume 10.8 fL (9.5-12.2); Platelet Count 444 10*3/uL (140-440); RBC 2.65 10*6/uL (4.10-5.20); WBC 42.22 10*3/uL (4.50-10.00)
[2025-04-11 09:06] LABS: African American GFR (CKD) 59 (>60 ml/min/1.73 sqM); Anion Gap 9 mmol/L; Blood Urea Nitrogen 64 mg/dL (7-17); Calcium 9.3 mg/dL (8.4-10.2); Carbon Dioxide 17 mmol/L (22-30); Chloride 114 mmol/L (98-107); Glucose 139 mg/dL (74-99); Non-African American GFR(CKD) 51 (>60 ml/min/1.73 sqM); Potassium 4.1 mmol/L (3.5-5.1); Sodium 140 mmol/L (137-145)
[2025-04-11 09:29] LABS: Lymphocytes # (M) 5.07 k/uL (1.0-4.8); Monocytes # (M) 1.69 k/uL (0-1.0); Neutrophils # (M) 35.46 k/uL (1.3-7.7); Neutrophils % (M) 84 %; Nucleated Red Blood Cells 0 /100 WBC (0-0); Total Cells Counted 100
[2025-04-11 09:49] VITALS: TEMP 98.9
[2025-04-11 11:46] VITALS: BP 93/56; PULSE 57; RESP 16
--- NOTE | 2025-04-11 13:44 | P.DS ---
Providers Date of admission: 04/03/25 21:05 Attending physician: Moses Burgess Consults: 04/03/25 21:02 Consult Physician Routine Consulting Provider: Robson Morales Consult Reason/Comments: ca pt, gen weakness Do you want consulting provider notified?: Yes, Notify in am 04/05/25 00:38 Consult Physician Stat Consulting Provider: Keith Camarena Consult Reason/Comments: Critical trops. abnormal Tele Do you want consulting provider notified?: Yes Primary care physician: Derick Strong MD Hospital Course: Hospital Course: Patient is a 64-year-old female with history of colon cancer, liver cancer with metastasis (currently on Keytruda last dose about 4 weeks ago, follows with Dr. Cristiane Morales) history of DVT (Eliquis), CAD with x2 stent placement, as transfer from [facility] here for generalized weakness. Patient reported that she has been having generalized weakness for the past 3 days with associated difficulty in ambulating. On day of admission her weakness has gotten si gnificantly worse which led her to seek care. She denied chest pain, palpitations, shortness of breath, extremity swelling, focal weakness, speech changes, vision changes, abdominal pain, urinary frequency, dysuria, diarrhea, loss of appetite. On evaluation at the outside facility she had elevated liver enzymes, BUN and creatinine. She was admitted in December 2024 for influenza with possible left lower pneumonia and was sent home on 3 days of p.o. antibiotics, prednisone taper, tamsulosin and Protonix. On admission: Vitals: Temp 98.8 F, [place] 72, RR 18, BP 106/64, O2 saturation 97% on room air Labs: WBC 9.08, hemoglobin 10.6, MCV 87, platelet count 206,000, sodium 140, potassium 3.6, bicarb 14, chloride 114, BUN 27, creatinine 1.2, glucose 91, AST 576, ALT 395, alk phos 2315, albumin 3.1. Troponin was flat at 0.02. Coagulation studies shows PT 26.2, INR 2.6, PTT 44.4 Imaging: CT abdomen outside facility showed moderate constipation, small ascites, kidney cysts, bilateral right and lower lobe atelectasis.. EKG independently interpreted showed sinus rhythm with a rate of 73, left axis deviation, no ST-T changes, QTc 436 MS Gallbladder ultrasound from our facility showed mildly distended gallbladder lumen without sonographic evidence of cholelithiasis or acute cholecystitis, numerous metastatic liver lesions. Patient was admitted for the evaluation of OUMOU and debility with anemia of chronic disease at baseline. IV fluids, CBC and CMP were ordered. Heme-onc consulted and PT OT consulted. Liver MRI was ordered by heme-onc and showed multiple masses of ill-defined heterogenous mass within both right and left liver lobe consistent with metastatic disease and prednisone p.o. was initiated by [facility] and advised that cancer therapy be held until patient is stronger with rehab. She was also found to have episodes of tachycardia with elevated troponin and cardiology was consulted due to her cardiac history. They advised increasing metoprolol and to continue her losartan. Patient's renal function and jaundice improved throughout hospital stay. Antihypertensives and statins were discontinued due to persistence of jaundice and hypotension. PT OT consult recommended ROSALBA on discharge and is cleared for discharge to [facility] today. She is sent home on 3 days of p.o. Douglas as needed and prednisone taper. Her metoprolol was increased to 50 mg twice daily. She is advised to follow-up with PCP, oncologist and manager nicu on outpatient basis. Final Diagnosis: #Acute Kidney Injury, prerenal #Anemia of chronic disease, at baseline #Leukocytosis in the setting of malignancy and steroid use #Debility #History of colon cancer with metastasis to liver #Hyperbilirubinemia secondary to above #Elevated transaminases secondary to above #Elevated alk phos secondary to above #History of DVT #CAD with stent placement #Hypertension Physical examination: Vital signs reviewed General: non toxic, no distress, appears at stated age, room air Derm: no unusual rashes/lesions, warm, jaundice Head: atraumatic, normocephalic, symmetric Eyes: EOMI, icteric sclera, pupils equal round reactive to light ENT: Nose and ears atraumatic Neck: No cervical lymphadenopathy, trachea midline, supple Mouth: no lip lesion, mucus membranes moist Cardiovascular: S1S2 regular, no murmur Lungs: CTA bilateral, no rhonchi, no rales, no accessory muscle use Abdominal: soft, nondistended, nontender to palpation, no guarding Ext: muscle strength 5 out of 5 in all 4 extremities grossly, no gross muscle atrophy, no contractures, positive dorsalis pedis pulse bilateral, no edema Neuro: CN II-XI grossly intact, no gross focal neuro deficits Psych: Alert and oriented x 3, appropriate affect and mood Attestation: I have seen and examined this patient with my resident, assessment and plan discussed with the resident, agree with assessment and plan as written above. Dr. Charles Patient Condition at Discharge: Stable Plan - Discharge Summary New Discharge Prescriptions: New HYDROcodone/APAP 5-325MG [Douglas 5-325] 1 tab PO Q6HR PRN 3 Days #12 tab PRN Reason: Pain predniSONE See Taper PO DIRECTED #200 tab Metoprolol Tartrate [Lopressor] 50 mg PO BID #60 tab Continue Ferrous Sulfate [Iron (65 MG Elemental)] 325 mg PO DAILY Ticagrelor [Brilinta] 90 mg PO BID tab Apixaban [Eliquis] 5 mg PO BID tab Discontinued Atorvastatin [Lipitor] 80 mg PO DAILY 30 Days #30 tab amLODIPine [Norvasc] 5 mg PO DAILY Losartan [Cozaar] 25 mg PO DAILY Empagliflozin [Jardiance] 10 mg PO DAILY Pembrolizumab [Keytruda] 400 mg IV Q42D Metoprolol Tartrate [Lopressor] 25 mg PO BID 30 Days #60 tab Discharge Medication List Ferrous Sulfate [Iron (65 MG Elemental)] 325 mg PO DAILY 08/27/24 [History] Apixaban [Eliquis] 5 mg PO BID tab 09/14/24 [Rx] Ticagrelor [Brilinta] 90 mg PO BID tab 09/14/24 [Rx] HYDROcodone/APAP 5-325MG [Douglas 5-325] 1 tab PO Q6HR PRN 3 Days #12 tab 04/11/25 [Rx] Metoprolol Tartrate [Lopressor] 50 mg PO BID #60 tab 04/11/25 [Rx] predniSONE See Taper PO DIRECTED #200 tab 04/11/25 [Rx] Follow up Appointment(s)/Referral(s): Shay Edgar MD [Medical Doctor] - 1 Week Derick Strong MD [Primary Care Provider] - 1-2 days Patient Instructions/Handouts: Acute Kidney Injury (DC) Activity/Diet/Wound Care/Special Instructions: Activity as tolerated Heart Healthy Diet
--- NOTE | 2025-04-11 17:10 | P.PN ---
Subjective Progress Note Date: 04/11/25 No acute events overnight. Pt reporting feeling somewhat improved today but still weak and having back pain. Pain being managed on current regimen. Denies n/v, tolerating oral intake. LFTs/bili showing improvement on steroid regimen Objective - Vital Signs Vital signs: Vital Signs Temp 98.9 F 04/11/25 08:00 Pulse 57 L 04/11/25 11:44 Resp 16 04/11/25 11:44 BP 93/56 04/11/25 11:44 Pulse Ox 96 04/11/25 11:44 FiO2 Intake & Output 04/10/25 04/11/25 04/11/25 18:59 06:59 18:59 Intake Total 20 960 120 Output Total 1200 Balance -1180 960 120 Weight 77.4 kg 74.3 kg Intake: IV 20 20 Invasive Line 2 20 20 Oral 940 120 Output: Urine 1200 Other: Voiding Method Diaper Diaper Diaper External Catheter # Bowel Movements 2 - Constitutional General appearance: Present: no acute distress - EENT Eyes: Present: scleral icterus ENT: Present: hearing grossly normal - Respiratory Details: breathing is even and unlabored - Cardiovascular Details: skin warm and dry - Gastrointestinal General gastrointestinal: Present: soft. Absent: tenderness - Musculoskeletal Musculoskeletal: Present: strength equal bilaterally - Psychiatric Psychiatric: Present: A&O x's 3 - Labs CBC & Chem 7: 04/11/25 08:22 04/11/25 08:22 Labs: Abnormal Lab Results - Last 24 Hours (Table) 04/11/25 04/11/25 Range/Units 08:22 08:22 WBC 42.22 H (4.50-10.00) 10*3/uL RBC 2.65 L (4.10-5.20) 10*6/uL Hgb 7.5 L (12.0-15.0) g/dL Hct 23.8 L (37.2-46.3) % MCHC 31.5 L (32.0-37.0) g/dL Plt Count 444 H (140-440) 10*3/uL Immature Gran # 2.73 H (0.00-0.04) 10*3/uL Neutrophils # (Manual) 35.46 H (1.3-7.7) k/uL Lymphocytes # (Manual) 5.07 H (1.0-4.8) k/uL Monocytes # (Manual) 1.69 H (0-1.0) k/uL Chloride 114 H (98-107) mmol/L Carbon Dioxide 17 L (22-30) mmol/L BUN 64 H (7-17) mg/dL Creatinine 1.13 H (0.52-1.04) mg/dL Glucose 139 H (74-99) mg/dL Assessment and Plan (1) Generalized weakness Status: Acute Code(s): R53.1 - WEAKNESS SNOMED Code(s): 67037636 (2) Colon adenocarcinoma Status: Acute Priority: High Code(s): C18.9 - MALIGNANT NEOPLASM OF COLON, UNSPECIFIED SNOMED Code(s): 621504151 Plan: Metastatic colon adenocarcinoma: -Oncology history as dictated in the HPI -S/p cycle 2 of keytruda on 03/14/25 -Labs showing progression of transaminitis and hyperbilirubinemia -On admit ultrasound gallbladder showing mildly distended gallbladder lumen without evidence of cholelithiasis or cholecystitis, with numerous metastatic liver lesions noted. -Treatment response CT abdomen pelvis obtained on 03/27/2025 showed mild ascites. Ill-defined hypodense masses within the liver. Inferior right lobe liver mass measuring 9 cm with some smaller hypodensities in the upper posterior right lobe liver. Soft tissue density in the posterior left hemipelvis, however reading was not compared to previous study from November 2024. Will discuss with radiology dept to have scans compared -Addendum to prior CT AP, showing disease is overall stable. With progression of transaminitis and hyperbilirubinemia, concern for IO induced hepatitis -Liver MRI revealing known metastatic disease in the bilateral hepatic lobes with no evidence of biliary obstruction, lending more concern for potential immunotherapy induced hepatitis -Prednisone 1mg/kg taper started 04/06/2025 with improvement in LFTs/bilirubin -Continue is on 1 mg/kg daily for total of 7 days with taper by 10 mg every week -Continue to monitor LFTs daily Plan for discharge is to SNF, cancer treatment will be held until discharged from rehab
[2025-04-11 21:16] LABS: % Iron Saturation 35.96 (12.00-45.00)
[2025-04-13 04:11] LABS: Methylmalonic Acid 0.35 umol/L (<0.40)
== END 2025-04-11 15:14 | DRG 683 ==
LOC: EC 17:12 → 6NMEDSUR 21:04 → OBSVTOIN 21:05 → 6NMEDSUR 23:52 → 1SOBS 04-04 05:32 → 3SCARD 04-05 01:38
PROVIDERS: ADMIT Hospitalist; ATTEND Hospitalist
DX: N17.9 Acute kidney failure, unspecified (principal); C18.9 Malignant neoplasm of colon, unspecified; C78.7 Secondary malignant neoplasm of liver and intrahepatic bile duct; R17 Unspecified jaundice; R18.8 Other ascites; D63.8 Anemia in other chronic diseases classified elsewhere; D72.829 Elevated white blood cell count, unspecified; I11.0 Hypertensive heart disease with heart failure; I77.810 Thoracic aortic ectasia; K76.9 Liver disease, unspecified; I35.1 Nonrheumatic aortic (valve) insufficiency; I50.22 Chronic systolic (congestive) heart failure; I48.91 Unspecified atrial fibrillation; T38.0X5A Adverse effect of glucocorticoids and synthetic analogues, initial encounter; R74.01 Elevation of levels of liver transaminase levels; R53.81 Other malaise; Z85.038 Personal history of other malignant neoplasm of large intestine; R53.1 Weakness; Z87.891 Personal history of nicotine dependence; Z86.718 Personal history of other venous thrombosis and embolism; I25.10 Atherosclerotic heart disease of native coronary artery without angina pectoris; Z95.5 Presence of coronary angioplasty implant and graft; K82.8 Other specified diseases of gallbladder; Z79.01 Long term (current) use of anticoagulants; Z79.02 Long term (current) use of antithrombotics/antiplatelets; Z79.84 Long term (current) use of oral hypoglycemic drugs; Z79.899 Other long term (current) drug therapy; Z85.05 Personal history of malignant neoplasm of liver; Z85.42 Personal history of malignant neoplasm of other parts of uterus; X58.XXXA Exposure to other specified factors, initial encounter
CPT/HCPCS: 36415; 74183; 76705; 80048; 80053; 80076; 82378; 82607; 82728; 82747; 83540; 83550; 83921; 84484; 85025; 85027; 85610; 85730; 93005; 96360; 96361; 99285